=== PATIENT | male | born 1955 ===

== ENCOUNTER 2017-06-18 01:00 | Observation (INO) | payer MEDICAID ==
[2017-06-18 02:09] LABS: BASO % 0.2 % (0.0-2.0); EOS % 0.5 % (0.0-4.0); HEMATOCRIT 34.7 % (35.0-51.0); LYMPH % 9.4 % (20.0-40.0); MEAN CELL VOLUME 94.1 fL (80.0-94.0); MEAN CORPUSCULAR HEMOGLOBIN 31.8 pg (27.0-31.0); MEAN CORPUSCULAR HGB CONC 33.8 g/dL (33.0-37.0); MEAN PLATELET VOLUME 6.8 fL (7.2-11.7); MONO # 1.3 K/uL (0.0-0.8); MONO % 12.9 % (0.0-10.0); PLATELET COUNT 303 K/uL (130-400); RED CELL DISTRIBUTION WIDTH 12.9 % (11.5-14.5); WHITE BLOOD COUNT 10.5 K/uL (4.8-10.8)
[2017-06-18 02:28] LABS: ALB/GLOB RATIO 1.1 (1.0-2.1); ALCOHOL SERUM < 10 mg/dl (0-10); ALKALINE PHOSPHATASE 74 U/L (38-126); ALT/SGPT 47 U/L (21-72); AST/SGOT 28 U/L (17-59); BILIRUBIN,TOTAL 0.7 mg/dL (0.2-1.3); BLOOD UREA NITROGEN 22 mg/dL (9-20); CALCIUM 8.4 mg/dl (8.6-10.4); CARBON DIOXIDE 26 mmol/L (22-30); CHLORIDE 103 mmol/L (98-107); GFR AFRICAN-AMERICAN > 60; GLUCOSE,RANDOM 108 mg/dL (75-110); POTASSIUM 3.5 mmol/L (3.6-5.2); SODIUM 136 mmol/L (132-148); TOTAL PROTEIN 6.9 g/dL (6.3-8.3)
[2017-06-18 02:42] LABS: RBC URINE 2 /hpf (0-3); URINE BILIRUBIN NEGATIVE (NEGATIVE); URINE BLOOD NEGATIVE (NEGATIVE); URINE COLOR Yellow (YELLOW); URINE GLUCOSE (UA) NORMAL (Normal); URINE KETONE 1+ mg/dL (NEGATIVE); URINE LEUKOCYTE ESTERASE NEG Leu/uL (Negative); URINE PROTEIN NEGATIVE (NEGATIVE); URINE UROBILINOGEN NORMAL mg/dL (0.2-1.0); WBC URINE 1 /hpf (0-5)
[2017-06-18 02:58] LABS: TOTAL CELLS COUNTED 100
[2017-06-18 02:59] LABS: NEUTROPHIL 77 % (50-75)
--- NOTE | 2017-06-18 05:58 | C.PDOC ---
History Of Present Illness 61 y/o male brought in by EMS, after patient was found wandering the streets [facility]. Patient notes that "his is keeping his meds away from him and he did not take his meds in a while". Patient is unable to state which meds. Pt states his neighbor was concerned about him and called the ambulance to bring him in but states he is fine. Pt denies any somatic complaints at this time. Time Seen by Provider: 06/18/17 01:29 Chief Complaint (Nursing): Psychiatric Evaluation History Per: Patient History/Exam Limitations: clinical condition Onset/Duration Of Symptoms: Hrs Current Symptoms Are (Timing): Still Present Suicide/Self Injury Attempted (Context): None Modifying Factor(s): None Severity: Mild Additional History Per: Patient Past Medical History Reviewed: Historical Data, Nursing Documentation, Vital Signs Vital Signs: Last Vital Signs Temp 98.8 F 06/18/17 01:15 Pulse 89 06/18/17 01:15 Resp 20 06/18/17 01:15 BP 142/93 H 06/18/17 01:15 Pulse Ox 97 06/18/17 06:15 - Medical History PMH: Depression, HTN Denies: Diabetes, Hepatitis, HIV, Seizures, Sexually Transmitted Disease Family History: States: Unknown Family Hx - Social History Hx Alcohol Use: No Hx Substance Use: No - Immunization History Hx Tetanus Toxoid Vaccination: No Hx Influenza Vaccination: No Hx Pneumococcal Vaccination: No Review Of Systems Except As Marked, All Systems Reviewed And Found Negative. Constitutional: Negative for: Fever Cardiovascular: Negative for: Chest Pain Psych: Positive for: Psychosis. Negative for: Suicidal ideation Physical Exam - Physical Exam Appears: Non-toxic, No Acute Distress Skin: Warm, Dry, Other (superficial healing abrasions to the bilateral hands and below the left knee) Head: Atraumatic, Normacephalic Eye(s): bilateral: Normal Inspection, EOMI Neck: Normal, Supple Chest: Symmetrical, No Deformity, No Tenderness Cardiovascular: Rhythm Regular, No Murmur Respiratory: Normal Breath Sounds, No Rales, No Rhonchi, No Wheezing Gastrointestinal/Abdominal: Soft, No Tenderness Extremity: Normal ROM, No Tenderness, Pedal Edema (minimal, nonpitting), No Calf Tenderness, Other (minimal erythema to b/l LE. dry healing abrasions to b/ l hands, (+) abrasions to inferior aspect of left kn) Neurological/Psych: Other (Pt able to recall current events-) Disoriented To: Place, Time ED Course And Treatment - Laboratory Results Result Diagrams: 06/18/17 02:06 06/18/17 02:06 O2 Sat by Pulse Oximetry: 97 (RA) Pulse Ox Interpretation: Normal - CT Scan/US CT Head w/o Other Rad Studies (CT/US): Interpreted By Me, Read By Radiologist CT/US Interpretation: EXAM: CT Head Without Intravenous Contrast. EXAM DATE/ TIME: 06/18/2017 5:49 AM. CLINICAL HISTORY: 61 years old, male; Signs and symptoms; Psychosis or psychotic disorder; Other: Confusion;. Additional info: ConfusionTECHNIQUE: Axial computed tomography images of the head/brain without intravenous contrast. All CT scans at. this facility use one or more dose reduction techniques, viz.: automated exposure control; ma/kV. adjustment per patient size (including targeted exams where dose is matched to indication; i.e. head);. or iterative reconstruction technique. COMPARISON: No relevant prior studies available. FINDINGS: No intracranial hemorrhage. No intracranial edema. No evidence of infarct. There is trace mucosal thickening in the ethmoid sinuse. IMPRESSION: No acute intracranial findings Progress Note: Plans: Blood labs, UA, CT Head w/o. Pending Crisis evaluation- Pt evaluated by vamp cut out worker Deann who discussed case with Dr Hitchcock who requested AMS workup as pt is not fully oeiented and has no verified prior past psychiatric h/o Disposition - Disposition Disposition Time: 06:43 Condition: STABLE Forms: [facility] (Maori) - Clinical Impression Clinical Impression: Altered mental status, unspecified - Scribe Statement The provider has reviewed the documentation as recorded by the Scribe Glenna haile All medical record entries made by the Scribe were at my direction and personally dictated by me. I have reviewed the chart and agree that the record accurately reflects my personal performance of the history, physical exam, medical decision making, and the department course for this patient. I have also personally directed, reviewed, and agree with the discharge instructions and disposition. Physician Patient Turnover Patient Signed Over To: Annette Valdivia Handoff Comments: Pending labs and admission
--- NOTE | 2017-06-18 06:13 | CT ---
EXAM: CT Head Without Intravenous Contrast EXAM DATE/TIME: 06/18/2017 5:49 AM CLINICAL HISTORY: 61 years old, male; Signs and symptoms; Psychosis or psychotic disorder; Other: Confusion; Additional info: Confusion- TECHNIQUE: Axial computed tomography images of the head/brain without intravenous contrast. All CT scans at this facility use one or more dose reduction techniques, viz.: automated exposure control; ma/kV adjustment per patient size (including targeted exams where dose is matched to indication; i.e. head); or iterative reconstruction technique. COMPARISON: No relevant prior studies available. FINDINGS: No intracranial hemorrhage. No intracranial edema. No evidence of infarct. There is trace mucosal thickening in the ethmoid sinuses. IMPRESSION: No acute intracranial findings.
[2017-06-18] MEDS ORDERED: Dextrose 5%/0.45% NS 500 ML IV ONE (06:50)
[2017-06-18 08:31] LABS: FOLATE > 20.0 ng/mL
--- NOTE | 2017-06-18 08:32 | RAD ---
PROCEDURE: CHEST RADIOGRAPH, 1 VIEW HISTORY: Altered mental status COMPARISON: None available. FINDINGS: LUNGS: Mild venous congestion. Left apical granuloma. PLEURA: No pneumothorax or pleural fluid seen. CARDIOVASCULAR: Tortuous aorta. OSSEOUS STRUCTURES: Degenerative changes in the spine with paravertebral osteophytes. Productive change at the end of 1st bilateral ribs. VISUALIZED UPPER ABDOMEN: Normal. OTHER FINDINGS: None. IMPRESSION: Mild venous congestion. Left apical granuloma.
[2017-06-18 09:11] LABS: RBC URINE 3 /hpf (0-3); URINE BILIRUBIN NEGATIVE (NEGATIVE); URINE BLOOD NEGATIVE (NEGATIVE); URINE CALCIUM OXALATE CRYSTALS RARE /hpf (<OCC); URINE COLOR Yellow (YELLOW); URINE GLUCOSE (UA) NORMAL (Normal); URINE KETONE 1+ mg/dL (NEGATIVE); URINE LEUKOCYTE ESTERASE NEG Leu/uL (Negative); URINE PROTEIN NEGATIVE (NEGATIVE); URINE UROBILINOGEN NORMAL mg/dL (0.2-1.0); WBC URINE 1 /hpf (0-5)
--- NOTE | 2017-06-18 11:42 | CP.PCM.HP ---
History of Present Illness - History of Present Illness History of Present Illness: CC: Confused HPI: Patient is a 61 year old male with a history of early onset dementia. He was brought in from the streets after he was found wondering and confused. Patient says that he thinks someone advised him to come to the hospital because he was confused and need to be looked at. His ex who is in the room with him says that he has just started on PO medications for dementia and also has a history of HTN and hyperlipidemia was evicted from his apartment has refused to stay in a homeless nursing home. Patient reports that his mother from Alzheimer's disease and he is afraid he has it as well. Patient denies changes in vision, hearing, dizziness, chest pain, shortness of breath, nausea, vomiting , diarrhea, joint pain, stiffness, muscle weakness, depression, or anxiety but does report feeling confused. He also say she is talking to people who are not there. PMH: Dementia, HTN, hyperlipidemia PSH: denies FH: amira's mother from Alzheimer's disease SH: Homless, unemployed, denies smoking, etoh use, or drug use. PMD: ? Allergies: NKDA Present on Admission - Present on Admission Any Indicators Present on Admission: No History of DVT/PE: No History of Uncontrolled Diabetes: No Urinary Catheter: No Decubitus Ulcer Present: No History Surgical Site Infection Following: None Review of Systems - Constitutional Constitutional: absent: Chills, Fever - EENT Eyes: absent: Change in Vision Ears: absent: Dizziness - Cardiovascular Cardiovascular: absent: Chest Pain, Dyspnea - Respiratory Respiratory: absent: Cough - Gastrointestinal Gastrointestinal: absent: Abdominal Pain, Nausea, Vomiting - Genitourinary Genitourinary: absent: Dysuria - Musculoskeletal Musculoskeletal: absent: Muscle Weakness - Neurological Neurological: Memory Loss. absent: Weakness - Psychiatric Psychiatric: Confusion. absent: Anxiety - Endocrine Endocrine: absent: Palpitations Past Patient History - Past Social History Smoking Status: Never Smoked - CARDIAC Hx Hypertension: Yes - PULMONARY Hx Tuberculosis: No - NEUROLOGICAL Hx Seizures: No - HEMATOLOGICAL/ONCOLOGICAL Hx Human Immunodeficiency Virus (HIV): No - GENITOURINARY/GYNECOLOGICAL Hx Sexually Transmitted Disorders: No - PSYCHIATRIC Hx Depression: Yes Hx Substance Use: No - SURGICAL HISTORY Hx Surgeries: Yes Other/Comment: MOLE - REMOVAL FROM FACE - ANESTHESIA Hx Anesthesia: Yes Hx Anesthesia Reactions: No Meds Allergies/Adverse Reactions: Allergies Allergy/AdvReac Type Severity Reaction Status Date / Time No Known Allergies Allergy Verified 06/18/17 01:26 Physical Exam - Constitutional Appears: Non-toxic, No Acute Distress, Confused - Head Exam Head Exam: NORMAL INSPECTION - Eye Exam Eye Exam: Normal appearance, PERRL. absent: Scleral icterus Pupil Exam: NORMAL ACCOMODATION - ENT Exam ENT Exam: Normal Exam - Respiratory Exam Respiratory Exam: Clear to Auscultation Bilateral. absent: Rales, Rhonchi, Wheezes - Cardiovascular Exam Cardiovascular Exam: REGULAR RHYTHM, RRR, +S1, +S2. absent: Gallop, Rubs - GI/Abdominal Exam GI & Abdominal Exam: Normal Bowel Sounds, Soft. absent: Tenderness - Extremities Exam Extremities exam: Positive for: normal inspection. Negative for: pedal edema - Back Exam Back exam: NORMAL INSPECTION - Psychiatric Exam Psychiatric exam: Normal Affect, Normal Mood - Skin Skin Exam: Normal Color, Warm Results - Vital Signs Recent Vital Signs: Last Vital Signs Temp 98.5 F 06/18/17 10:24 Pulse 85 06/18/17 10:24 Resp 18 06/18/17 10:24 BP 130/74 06/18/17 10:24 Pulse Ox 98 06/18/17 10:24 - Labs Result Diagrams: 06/18/17 02:06 06/18/17 02:06 Labs: Laboratory Results - last 24 hr 06/18/17 06/18/17 06/18/17 01:36 02:06 02:06 WBC 10.5 RBC 3.69 L Hgb 11.7 L Hct 34.7 L MCV 94.1 H MCH 31.8 H MCHC 33.8 RDW 12.9 Plt Count 303 MPV 6.8 L Neut % (Auto) 77.0 H Lymph % (Auto) 9.4 L [place] % (Auto) 12.9 H Eos % (Auto) 0.5 Baso % (Auto) 0.2 Neut # 8.1 H Lymph # 1.0 Calvert # 1.3 H Eos # 0.0 Baso # 0.0 Neutrophils % (Manual) 77 H Band Neutrophils % 1 Lymphocytes % (Manual) 10 L Monocytes % (Manual) 12 H Platelet Estimate Normal Poikilocytosis (manual Slight Anisocytosis (manual) Slight Sodium 136 Potassium 3.5 L Chloride 103 Carbon Dioxide 26 Anion Gap 11 BUN 22 H Creatinine 0.7 L Est GFR ( Amer) > 60 Est GFR (Non-Af Amer) > 60 POC Glucose (mg/dL) Random Glucose 108 Calcium 8.4 L Total Bilirubin 0.7 AST 28 ALT 47 Alkaline Phosphatase 74 Ammonia Total Protein 6.9 Albumin 3.6 Globulin 3.4 Albumin/Globulin Ratio 1.1 Vitamin B12 Folate Urine Color Yellow Urine Clarity Clear Urine pH 5.0 Ur Specific [place] 1.027 Urine Protein Negative Urine Glucose (UA) Normal Urine Ketones 1+ H Urine Blood Negative Urine Nitrate Negative Urine Bilirubin Negative Urine Urobilinogen Normal Ur Leukocyte Esterase Neg Urine WBC (Auto) 1 Urine RBC (Auto) 2 Ur Squamous Epith Cells Calcium Oxalate Crystal Urine Opiates Screen Urine Methadone Screen Ur Barbiturates Screen Ur Phencyclidine Scrn Ur Amphetamines Screen U Benzodiazepines Scrn U Oth Cocaine Metabols U Cannabinoids Screen Alcohol, Quantitative < 10 06/18/17 06/18/17 06/18/17 02:20 06:43 06:43 WBC RBC Hgb Hct MCV MCH MCHC RDW Plt Count MPV Neut % (Auto) Lymph % (Auto) Calvert % (Auto) Eos % (Auto) Baso % (Auto) Neut # Lymph # Cal[place] # Eos # Baso # Neutrophils % (Manual) Band Neutrophils % Lymphocytes % (Manual) Monocytes % (Manual) Platelet Estimate Poikilocytosis (manual Anisocytosis (manual) Sodium Potassium Chloride Carbon Dioxide Anion Gap BUN Creatinine Est GFR ( Amer) Est GFR (Non-Af Amer) POC Glucose (mg/dL) Random Glucose Calcium Total Bilirubin AST ALT Alkaline Phosphatase Ammonia < 9 L Total Protein Albumin Globulin Albumin/Globulin Ratio Vitamin B12 291 Folate > 20.0 Urine Color Urine Clarity Urine pH Ur Specific [place] Urine Protein Urine Glucose (UA) Urine Ketones Urine Blood Urine Nitrate Urine Bilirubin Urine Urobilinogen Ur Leukocyte Esterase Urine WBC (Auto) Urine RBC (Auto) Ur Squamous Epith Cells Calcium Oxalate Crystal Urine Opiates Screen Negative Urine Methadone Screen Negative Ur Barbiturates Screen Negative Ur Phencyclidine Scrn Negative Ur Amphetamines Screen Negative U Benzodiazepines Scrn Negative U Oth Cocaine Metabols Negative U Cannabinoids Screen Negative Alcohol, Quantitative 06/18/17 06/18/17 09:03 09:53 WBC RBC Hgb Hct MCV MCH MCHC RDW Plt Count MPV Neut % (Auto) Lymph % (Auto) Calvert % (Auto) Eos % (Auto) Baso % (Auto) Neut # Lymph # Cal[place] # Eos # Baso # Neutrophils % (Manual) Band Neutrophils % Lymphocytes % (Manual) Monocytes % (Manual) Platelet Estimate Poikilocytosis (manual Anisocytosis (manual) Sodium Potassium Chloride Carbon Dioxide Anion Gap BUN Creatinine Est GFR ( Amer) Est GFR (Non-Af Amer) POC Glucose (mg/dL) 114 H Random Glucose Calcium Total Bilirubin AST ALT Alkaline Phosphatase Ammonia Total Protein Albumin Globulin Albumin/Globulin Ratio Vitamin B12 Folate Urine Color Yellow Urine Clarity Clear Urine pH 5.0 Ur Specific [place] 1.023 Urine Protein Negative Urine Glucose (UA) Normal Urine Ketones 1+ H Urine Blood Negative Urine Nitrate Negative Urine Bilirubin Negative Urine Urobilinogen Normal Ur Leukocyte Esterase Neg Urine WBC (Auto) 1 Urine RBC (Auto) 3 Ur Squamous Epith Cells 1 Calcium Oxalate Crystal Rare Urine Opiates Screen Urine Methadone Screen Ur Barbiturates Screen Ur Phencyclidine Scrn Ur Amphetamines Screen U Benzodiazepines Scrn U Oth Cocaine Metabols U Cannabinoids Screen Alcohol, Quantitative Assessment & Plan (1) Altered mental status, unspecified Assessment and Plan: The CBC shows a left shift without a high white count. CT scan of the head is negative, x:ray shows a apical granuloma, however CT scan of the chest is negative and unremarkable. UDS is negative, urine only has ketones in it. labs, ekg, chest x:ray, CT scan of the head reviewed. Admitted patient to tele/obs. Will get labs cbc, cmp, mag, phos, HIV, RPR, and TB gold quatifouron test. Have also ordered MRI with and without contrast Patient was also given vitamin B12 1000 mcg IM and thiamine as well. Psych consult Dr. Valente because of the visual and auditory hallucinations. Status: Acute (2) Anemia Assessment and Plan: Hbg is 11.7, will follow up morning cbc. Status: Acute (3) Hypokalemia Assessment and Plan: replace as needed. Status: Acute (4) Dementia Assessment and Plan: continue his home medication Aricpet 10mg Namenda 10mg bid Status: Chronic (5) HTN (hypertension) Assessment and Plan: continue home Cozaar 25mg Status: Chronic (6) Prophylactic measure Assessment and Plan: Pepcid 20mg Heparin 5000 units sc q8h SCDs Status: Acute
--- NOTE | 2017-06-18 12:36 | CT ---
PROCEDURE: CT Chest without contrast HISTORY: granuloma seen on chest x:ray COMPARISON: Comparison is made to previous same-day chest x-ray TECHNIQUE: Contiguous axial images were obtained through the chest without intravenous contrast enhancement. Sagittal and coronal reconstructions were performed. Radiation dose (DLP): 505.94 mGy-cm. This CT exam was performed using one or more of the following dose reduction techniques: Automated exposure control, adjustment of the mA and/or kV according to patient size, and/or use of iterative reconstruction technique. FINDINGS: LUNGS: No evidence of pneumonia or mass lesion in the lungs. No evidence of suspicious nodule in the lungs. MEDIASTINUM: Unremarkable thoracic aorta. No aneurysm. Normal sized heart. Main pulmonary artery unremarkable. No vascular congestion. No lymphadenopathy. PLEURA: No pleural fluid. No pneumothorax. BONES: No fracture. No destructive lesion. Hemangioma noted at T5 vertebral body. UPPER ABDOMEN: Grossly unremarkable. OTHER FINDINGS: None. IMPRESSION: No evidence of granuloma or suspicious nodule in the lungs. No evidence of acute pathology in the chest.
[2017-06-18] MEDS ORDERED: Potassium Chloride 20 mEq ER Tab PO ONE (14:30)
--- NOTE | 2017-06-18 18:01 | CARD ---
APPROVED REPORT EKG Measurement Heart [id number] <Conclusion> Normal sinus rhythm Normal ECG
[2017-06-18] MEDS ORDERED: Gadodiamide 287 MG/ML VIAL (15ML) IV ONE (18:24)
--- NOTE | 2017-06-18 18:52 | MRI ---
PROCEDURE: MRI brain dated 06/18/2017 HISTORY: AMS. COMPARISON: Comparison made with prior CT scan brain 06/18/2017. TECHNIQUE: Multiplanar, multisequence MR images of the brain were obtained with and without intravenous contrast enhancement. Approximately 15 cc of Omniscan injected for this procedure. . Note that examination is limited by motion artifact FINDINGS: HEMORRHAGE: No acute parenchymal, subarachnoid or extra-axial hemorrhage. DWI: No evidence of acute infarcts seen on diffusion imaging. BRAIN PARENCHYMA: Mild diffuse/confluent chronic white matter ischemic changes the seen extending peripherally into the deep white matter both cerebral hemispheres. Changes are most conspicuous in the parieto-occipital regions. Additionally, there are a few small focal areas of nonenhancing increased T2 signal seen scattered about the deep and subcortical white matter both cerebral hemispheres. In changes collectively may represent chronic sequela of small vessel disease. . Moderate generalized volume loss. ENHANCEMENT: No enhancing parenchymal nor extra-axial masses or collections seen. No evidence of unusual meningeal enhancement. VENTRICLES: No evidence of obstructive hydrocephalus CRANIUM: There are no acute calvarial abnormalities. ORBITS: Orbits and contents grossly unremarkable. PARANASAL SINUSES/MASTOIDS: Mild mucosal thickening noted within the ethmoid air complex extending superiorly into the frontal sinuses. VASCULAR SYSTEM: Visualized major vascular flow voids at skull base appear patent so far as can be seen through motion artifact. OTHER FINDINGS: None . IMPRESSION: Limited motion degraded study. No evidence of acute hemorrhage or infarct. Minor chronic white matter ischemic changes are felt be present. Moderate generalized volume loss.
[2017-06-18] MEDS: Rosuvastatin Calcium 2.5 mg Tab PO SCH (22:22)
[2017-06-19 01:02] VITALS: RESP 20
[2017-06-19 07:32] LABS: BASO % 0.3 % (0.0-2.0); EOS # 0.1 K/uL (0.0-0.7); EOS % 0.9 % (0.0-4.0); LYMPH % 12.8 % (20.0-40.0); MEAN CELL VOLUME 94.6 fL (80.0-94.0); MEAN CORPUSCULAR HEMOGLOBIN 32.4 pg (27.0-31.0); MEAN CORPUSCULAR HGB CONC 34.2 g/dL (33.0-37.0); MEAN PLATELET VOLUME 7.1 fL (7.2-11.7); MONO # 0.7 K/uL (0.0-0.8); MONO % 9.6 % (0.0-10.0); RED CELL DISTRIBUTION WIDTH 12.7 % (11.5-14.5); WHITE BLOOD COUNT 7.4 K/uL (4.8-10.8)
[2017-06-19 08:19] LABS: ALB/GLOB RATIO 1.4 (1.0-2.1); ALKALINE PHOSPHATASE 64 U/L (38-126); ALT/SGPT 39 U/L (21-72); AST/SGOT 20 U/L (17-59); BILIRUBIN,TOTAL 0.6 mg/dL (0.2-1.3); BLOOD UREA NITROGEN 11 mg/dL (9-20); CARBON DIOXIDE 27 mmol/L (22-30); CHLORIDE 102 mmol/L (98-107); GFR AFRICAN-AMERICAN > 60; GLUCOSE,RANDOM 95 mg/dL (75-110); MAGNESIUM 1.9 mg/dL (1.6-2.3); PHOSPHOROUS 3.4 mg/dL (2.5-4.5); POTASSIUM 3.8 mmol/L (3.6-5.2); SODIUM 136 mmol/L (132-148); TOTAL PROTEIN 5.3 g/dL (6.3-8.3)
--- NOTE | 2017-06-19 09:15 | CP.PCM.PN ---
Subjective - Date & Time of Evaluation Date of Evaluation: 06/19/17 Time of Evaluation: 07:00 - Subjective Subjective: Patient was seen and examined at bedside in the AM. Patient states he has become disoriented in the past and states his mom had Alzheimer's disease. Patient states about 2-3 months ago he began to hallucinate. Patient denies chest pain, palpitations, shortness of breath, nausea, vomiting, dysuria, diarrhea or constipation. Objective - Vital Signs/Intake and Output Vital Signs (last 24 hours): Temp Pulse Resp BP Pulse Ox 99 F 71 20 128/72 96 06/19/17 08:13 06/19/17 08:13 06/19/17 08:13 06/19/17 08:13 06/19/17 08:13 - Medications Medications: Current Medications Aspirin (Ecotrin) 81 mg PO DAILY [facility] Last Admin: 06/18/17 15:02 Dose: 81 mg Donepezil HCl (Aricept) 10 mg PO HS [facility] Last Admin: 06/18/17 22:22 Dose: 10 mg Famotidine (Pepcid) 20 mg PO BID [facility] Last Admin: 06/18/17 18:00 Dose: 20 mg Folic Acid (Folic Acid) 1 mg PO DAILY [facility] Last Admin: 06/18/17 15:02 Dose: 1 mg Heparin Sodium (Porcine) (Heparin) 5,000 units SC Q8 [facility] Last Admin: 06/19/17 05:21 Dose: 5,000 units Losartan Potassium (Cozaar) 25 mg PO DAILY [facility] Last Admin: 06/18/17 15:02 Dose: 25 mg Memantine (Namenda) 10 mg PO BID [facility] Last Admin: 06/18/17 18:00 Dose: 10 mg Pneumococcal Polyvalent Vaccine (Pneumovax 23 Vaccine) 0.5 ml IM .ONCE ONE Stop: 06/19/17 10:01 Rosuvastatin Calcium (Crestor) 2.5 mg PO HS [facility] Last Admin: 06/18/17 22:22 Dose: 2.5 mg Thiamine HCl (Vitamin B1 Tab) 100 mg PO DAILY [facility] Last Admin: 06/18/17 15:01 Dose: 100 mg - Labs Labs: 06/19/17 07:21 06/19/17 07:21 - Constitutional Appears: No Acute Distress - Head Exam Head Exam: ATRAUMATIC, NORMAL INSPECTION - Eye Exam Eye Exam: EOMI, Normal appearance - Respiratory Exam Respiratory Exam: Clear to Ausculation Bilateral, NORMAL BREATHING PATTERN - Cardiovascular Exam Cardiovascular Exam: REGULAR RHYTHM, RRR, +S1, +S2 - GI/Abdominal Exam GI & Abdominal Exam: Soft, Normal Bowel Sounds. absent: Tenderness - Extremities Exam Extremities Exam: Normal Inspection. absent: Pedal Edema, Tenderness - Neurological Exam Neurological Exam: Alert, Awake, Oriented x3 - Psychiatric Exam Psychiatric exam: Normal Affect, Normal Mood - Skin Skin Exam: Normal Color, Warm Assessment and Plan - Assessment and Plan (Free Text) Assessment: 1.) Altered mental status secondary to Alzheimer's Disease Psych consult Dr. Valente --> help appreciated - CT scan of the head is negative - X-ray shows a apical granuloma - CT scan of the chest is negative and unremarkable - UDS is negative - RPR and HIV negative - UA: urine only + for ketones - Brain MRI: Limited motion degraded study. No evidence of acute hemorrhage or infarct. Minor chronic white matter ischemic changes are felt be present. Moderate generalized volume loss. Medications: * Aricpet 10mg * Namenda 10mg bid * Folic acid 1mg PO daily * Crestor 2.5mg PO HS * Aspirin 81mg PO 2.) Anemia - H/H: 11.3/33.0 - Monitor 3.) Hypokalemia - resolved 4.) HTN - continue home Cozaar 25mg 5.) Prophylaxis - Pepcid 20mg - Heparin 5000 units sc q8h - SCDs Disposition: pending approval to rehab Case discussed with Dr. Jayde Norris PGY-1
[2017-06-19] MEDS ORDERED: Pneumococcal 23-Valent Vaccine IM ONE (10:00)
[2017-06-19] MEDS ORDERED: Influenza Vaccine 60 mcg/0.5 mL SYR (4YR UP) IM ONE (10:00)
--- NOTE | 2017-06-19 12:48 | PCM.PSYCH ---
Initial Psychiatric Evaluation - Initial Psychiatric Evaluation Type of Admission: Voluntary Legal Status: Capacity Chief Complaint (in patient's own words): I feel good History of Present Illness and Precipitating Events: The patient was seen, chart reviewed, and case discussed with staff. This is a 61 year old male without a stable home, alternating stays with friends and family. He was brought to the hospital because of confusion and believes he needs treatment for Alzheimers disease. Patient denies any past inpatient psychiatric hospitalization or outpatient psychiatric care. He denies use of heroin, cocaine, and marijuana. He reports social alcohol usage: beer and wine. Patient reports that he is easily distracted and an episode of hallucination where he thought he was talking to two people when only one person was present. He also reports that his memory comes and goes for the past 6-7 months. He reports anxiety that started after he was told about the risk for Alzheimers disease. He denies any auditory or visual hallucinations or any psychotic symptoms. He denies issues with ADLs and IADLs. He denies any suicidal ideation or homicidal ideation. He denies feelings of anxiety, feelings of hopelessness and helplessness. 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 Family psychiatric history: mother () had Alzheimers Past medical history: dementia, HTN, HLD Current Medications: Active Medications Generic Name Dose Route Start Last Admin Trade Name Katy PRN Reason Stop Dose Admin Aspirin 81 mg 06/18/17 15:00 06/19/17 10:41 Ecotrin PO 81 mg DAILY ANTONY Administration Donepezil HCl 10 mg 06/18/17 22:00 06/18/17 22:22 Aricept PO 10 mg HS ANTONY Administration Famotidine 20 mg 06/18/17 11:45 06/19/17 10:41 Pepcid PO 20 mg BID ANTONY Administration Folic Acid 1 mg 06/18/17 14:45 06/19/17 10:41 Folic Acid PO 1 mg DAILY ANTONY Administration Heparin Sodium (Porcine) 5,000 units 06/18/17 14:00 06/19/17 05:21 Heparin SC 5,000 units Q8 ANTONY Administration Losartan Potassium 25 mg 06/18/17 15:00 06/19/17 10:41 Cozaar PO 25 mg DAILY ANTONY Administration Memantine 10 mg 06/18/17 18:00 06/19/17 10:41 Namenda PO 10 mg BID ANTONY Administration Rosuvastatin Calcium 2.5 mg 06/18/17 22:00 06/18/17 22:22 Crestor PO 2.5 mg HS ANTONY Administration Thiamine HCl 100 mg 06/18/17 13:00 06/19/17 10:41 Vitamin B1 Tab PO 100 mg DAILY ANTONY Administration Past Psychiatric History - Past Psychiatric History Previous Treatment History: None Pertinent Medical Hx (Current Medical&Sleep Prob, Allergies): Allergies Allergy/AdvReac Type Severity Reaction Status Date / Time No Known Allergies Allergy Verified 06/18/17 01:26 Unobtainable 06/18/17 Review of Systems - Review of Systems All systems: reviewed and no additional remarkable complaints except - Psychiatric Psychiatric: Anxiety, Irritability Mental Status Examination - Personal Presentation Personal Presentation: Looks stated age - Affect Affect: Constricted - Motor Activity Motor Activity: Calm - Reliability in Providing Information Reliability in Providing Information: Fair, Poor, due to cognitve impairment - Speech Speech: Organized - Mood Mood: Anxious - Formal Thought Process Formal Thought Process: No Impairment - Obsessions/Compulsions Obsessions: No Compulsions: No - Cognitive Functions Orientation: Person, Place, Situation, Time Sensorium: Alert Attention/Concentration: Attentive Abstract Thinking: [place] Estimate of Intelligence: Below average Judgement: Imparied, as evidence by: Lack of insight into illness, Intact, as evidence by: Insight regarding need for hospitalization - Risk Risk: Diminished functioning - Limitations Limitations: Living alone DSM 5 DX - DSM 5 DSM 5 Diagnosis: Alzheimer's dementia with behavioral disturbances Rule/out delirium - Recommended/Plan of Treatment Treatment Recommendations and Plan of Treatment: Patient psychiatrically stable and clear for discharge - Smoking Cessation Smoking Cessation Initiated: No
[2017-06-19] MEDS: Rosuvastatin Calcium 2.5 mg Tab PO SCH (21:56)
--- NOTE | 2017-06-20 06:53 | CP.PCM.PN ---
Objective - Vital Signs/Intake and Output Vital Signs (last 24 hours): Temp Pulse Resp BP Pulse Ox 98 F 70 20 133/76 96 06/19/17 23:20 06/19/17 23:20 06/19/17 23:20 06/19/17 23:20 06/19/17 23:20 Intake and Output: 06/19/17 06/20/17 18:59 06:59 Intake Total 450 1000 Balance 450 1000 - Medications Medications: Current Medications Aspirin (Ecotrin) 81 mg PO DAILY [facility] Last Admin: 06/19/17 10:41 Dose: 81 mg Donepezil HCl (Aricept) 10 mg PO HS [facility] Last Admin: 06/19/17 21:56 Dose: 10 mg Famotidine (Pepcid) 20 mg PO BID [facility] Last Admin: 06/19/17 17:21 Dose: 20 mg Folic Acid (Folic Acid) 1 mg PO DAILY [facility] Last Admin: 06/19/17 10:41 Dose: 1 mg Heparin Sodium (Porcine) (Heparin) 5,000 units SC Q8 [facility] Last Admin: 06/19/17 21:56 Dose: 5,000 units Losartan Potassium (Cozaar) 25 mg PO DAILY [facility] Last Admin: 06/19/17 10:41 Dose: 25 mg Memantine (Namenda) 10 mg PO BID [facility] Last Admin: 06/19/17 17:21 Dose: 10 mg Rosuvastatin Calcium (Crestor) 2.5 mg PO HS [facility] Last Admin: 06/19/17 21:56 Dose: 2.5 mg Thiamine HCl (Vitamin B1 Tab) 100 mg PO DAILY [facility] Last Admin: 06/19/17 10:41 Dose: 100 mg - Labs Labs: 06/19/17 07:21 06/19/17 07:21
[2017-06-20 08:29] VITALS: BP 141/80; PULSE 74; TEMP 98; O2SAT 96
[2017-06-20 08:32] LABS: BASO % 0.2 % (0.0-2.0); EOS # 0.1 K/uL (0.0-0.7); EOS % 0.8 % (0.0-4.0); HEMATOCRIT 36.8 % (35.0-51.0); LYMPH # 1.2 K/uL (1.0-4.3); LYMPH % 9.9 % (20.0-40.0); MEAN CELL VOLUME 94.6 fL (80.0-94.0); MEAN CORPUSCULAR HEMOGLOBIN 31.8 pg (27.0-31.0); MEAN CORPUSCULAR HGB CONC 33.7 g/dL (33.0-37.0); MEAN PLATELET VOLUME 7.2 fL (7.2-11.7); MONO # 1.3 K/uL (0.0-0.8); MONO % 10.9 % (0.0-10.0); PLATELET COUNT 346 K/uL (130-400); RED CELL DISTRIBUTION WIDTH 12.7 % (11.5-14.5); WHITE BLOOD COUNT 11.7 K/uL (4.8-10.8)
[2017-06-20 08:55] LABS: ALKALINE PHOSPHATASE 71 U/L (38-126); ALT/SGPT 34 U/L (21-72); AST/SGOT 23 U/L (17-59); BILIRUBIN,TOTAL 0.7 mg/dL (0.2-1.3); BLOOD UREA NITROGEN 10 mg/dL (9-20); CALCIUM 8.2 mg/dl (8.6-10.4); CARBON DIOXIDE 26 mmol/L (22-30); CHLORIDE 101 mmol/L (98-107); CHOLESTEROL 141 mg/dL (0-199); GFR AFRICAN-AMERICAN > 60; GLUCOSE,RANDOM 87 mg/dL (75-110); PHOSPHOROUS 3.4 mg/dL (2.5-4.5); POTASSIUM 3.9 mmol/L (3.6-5.2); SODIUM 134 mmol/L (132-148); TOTAL PROTEIN 5.9 g/dL (6.3-8.3)
[2017-06-20 09:08] LABS: ALB/GLOB RATIO 1.4 (1.0-2.1)
[2017-06-20 10:01] LABS: NEUTROPHIL 82 % (50-75); TOTAL CELLS COUNTED 100
--- NOTE | 2017-06-20 11:19 | CP.PCM.DIS ---
<Jennifer Norris - Last Filed: 06/20/17 13:14> Provider - Provider Date of Admission: 06/18/17 15:16 Attending physician: Tamera Sawyer DO Time Spent in preparation of Discharge (in minutes): 40 Hospital Course - Lab Results Lab Results: Most Recent Lab Values WBC 11.7 K/uL (4.8-10.8) H D 06/20/17 08:28 RBC 3.89 Mil/uL (4.40-5.90) L 06/20/17 08:28 Hgb 12.4 g/dL (12.0-18.0) 06/20/17 08:28 Hct 36.8 % (35.0-51.0) 06/20/17 08:28 MCV 94.6 fL (80.0-94.0) H 06/20/17 08:28 MCH 31.8 pg (27.0-31.0) H 06/20/17 08:28 MCHC 33.7 g/dL (33.0-37.0) 06/20/17 08:28 RDW 12.7 % (11.5-14.5) 06/20/17 08:28 Plt Count 346 K/uL (130-400) 06/20/17 08:28 MPV 7.2 fL (7.2-11.7) 06/20/17 08:28 Neut % (Auto) 78.2 % (50.0-75.0) H 06/20/17 08:28 Lymph % (Auto) 9.9 % (20.0-40.0) L 06/20/17 08:28 Butts % (Auto) 10.9 % (0.0-10.0) H 06/20/17 08:28 Eos % (Auto) 0.8 % (0.0-4.0) 06/20/17 08:28 Baso % (Auto) 0.2 % (0.0-2.0) 06/20/17 08:28 Neut # 9.1 K/uL (1.8-7.0) H 06/20/17 08:28 Lymph # 1.2 K/uL (1.0-4.3) 06/20/17 08:28 Butts # 1.3 K/uL (0.0-0.8) H 06/20/17 08:28 Eos # 0.1 K/uL (0.0-0.7) 06/20/17 08:28 Baso # 0.0 K/uL (0.0-0.2) 06/20/17 08:28 Neutrophils % (Manual) 82 % (50-75) H 06/20/17 08:28 Band Neutrophils % 1 % (0-2) 06/18/17 02:06 Lymphocytes % (Manual) 9 % (20-40) L 06/20/17 08:28 Monocytes % (Manual) 9 % (0-10) 06/20/17 08:28 Platelet Estimate Normal (NORMAL) 06/20/17 08:28 RBC Morphology Normal 06/20/17 08:28 Poikilocytosis (manual Slight 06/18/17 02:06 Anisocytosis (manual) Slight 06/18/17 02:06 Sodium 134 mmol/L (132-148) 06/20/17 08:28 Potassium 3.9 mmol/L (3.6-5.2) 06/20/17 08:28 Chloride 101 mmol/L (98-107) 06/20/17 08:28 Carbon Dioxide 26 mmol/L (22-30) 06/20/17 08:28 Anion Gap 12 (10-20) 06/20/17 08:28 BUN 10 mg/dL (9-20) 06/20/17 08:28 Creatinine 0.7 mg/dL (0.8-1.5) L 06/20/17 08:28 Est GFR ( Amer) > 60 06/20/17 08:28 Est GFR (Non-Af Amer) > 60 06/20/17 08:28 POC Glucose (mg/dL) 114 mg/dL (65-110) H 06/18/17 09:53 Random Glucose 87 mg/dL (75-110) 06/20/17 08:28 Calcium 8.2 mg/dl (8.6-10.4) L 06/20/17 08:28 Phosphorus 3.4 mg/dL (2.5-4.5) 06/20/17 08:28 Magnesium 2.0 mg/dL (1.6-2.3) 06/20/17 08:28 Total Bilirubin 0.7 mg/dL (0.2-1.3) 06/20/17 08:28 AST 23 U/L (17-59) 06/20/17 08:28 ALT 34 U/L (21-72) 06/20/17 08:28 Alkaline Phosphatase 71 U/L (38-126) 06/20/17 08:28 Ammonia < 9 umol/L (9-33) L 06/18/17 06:43 Total Protein 5.9 g/dL (6.3-8.3) L 06/20/17 08:28 Albumin 3.5 g/dL (3.5-5.0) 06/20/17 08:28 Globulin 2.4 gm/dL (2.2-3.9) 06/20/17 08:28 Albumin/Globulin Ratio 1.4 (1.0-2.1) 06/20/17 08:28 Triglycerides 75 mg/dL (0-149) 06/20/17 08:28 Cholesterol 141 mg/dL (0-199) 06/20/17 08:28 LDL Cholesterol Direct 69 mg/dL (0-129) 06/20/17 08:28 HDL Cholesterol 59 mg/dL (30-70) 06/20/17 08:28 Vitamin B12 291 pg/mL (239-931) 06/18/17 06:43 Folate > 20.0 ng/mL 06/18/17 06:43 Free T4 1.10 ng/dL (0.78-2.19) 06/18/17 12:21 TSH 3rd Generation 0.50 mIU/L (0.46-4.68) 06/18/17 06:43 Urine Color Yellow (YELLOW) 06/18/17 09:03 Urine Clarity Clear (Clear) 06/18/17 09:03 Urine pH 5.0 (5.0-8.0) 06/18/17 09:03 Ur Specific [place] 1.023 (1.003-1.030) 06/18/17 09:03 Urine Protein Negative mg/dL (NEGATIVE) 06/18/17 09:03 Urine Glucose (UA) Normal mg/dL (Normal) 06/18/17 09:03 Urine Ketones 1+ mg/dL (NEGATIVE) H 06/18/17 09:03 Urine Blood Negative (NEGATIVE) 06/18/17 09:03 Urine Nitrate Negative (NEGATIVE) 06/18/17 09:03 Urine Bilirubin Negative (NEGATIVE) 06/18/17 09:03 Urine Urobilinogen Normal mg/dL (0.2-1.0) 06/18/17 09:03 Ur Leukocyte Esterase Neg Essence/uL (Negative) 06/18/17 09:03 Urine WBC (Auto) 1 /hpf (0-5) 06/18/17 09:03 Urine RBC (Auto) 3 /hpf (0-3) 06/18/17 09:03 Ur Squamous Epith Cells 1 /hpf (0-5) 06/18/17 09:03 Calcium Oxalate Crystal Rare /hpf (<OCC) 06/18/17 09:03 Urine Opiates Screen Negative (NEGATIVE) 06/18/17 02:20 Urine Methadone Screen Negative (NEGATIVE) 06/18/17 02:20 Ur Barbiturates Screen Negative (NEGATIVE) 06/18/17 02:20 Ur Phencyclidine Scrn Negative (NEGATIVE) 06/18/17 02:20 Ur Amphetamines Screen Negative (NEGATIVE) 06/18/17 02:20 U Benzodiazepines Scrn Negative (NEGATIVE) 06/18/17 02:20 U Oth Cocaine Metabols Negative (NEGATIVE) 06/18/17 02:20 U Cannabinoids Screen Negative (NEGATIVE) 06/18/17 02:20 Alcohol, Quantitative < 10 mg/dl (0-10) 06/18/17 02:06 RPR Nonreactive (NONREACTIVE) 06/18/17 12:21 HIV 1&2 Antibody Screen Negative (NEGATIVE) 06/18/17 12:21 - Hospital Course Hospital Course: CC: Confused HPI: Patient is a 61 year old male with a history of early onset dementia. He was brought in from the streets after he was found wondering and confused. Patient says that he thinks someone advised him to come to the hospital because he was confused and need to be looked at. His ex who is in the room with him says that he has just started on PO medications for dementia and also has a history of HTN and hyperlipidemia was evicted from his apartment has refused to stay in a homeless custodial. Patient reports that his mother from Alzheimer's disease and he is afraid he has it as well. Patient denies changes in vision, hearing, dizziness, chest pain, shortness of breath, nausea, vomiting , diarrhea, joint pain, stiffness, muscle weakness, depression, or anxiety but does report feeling confused. He also say she is talking to people who are not there. PMH: Dementia, HTN, hyperlipidemia PSH: denies FH: amira's mother from Alzheimer's disease SH: Homless, unemployed, denies smoking, etoh use, or drug use. Allergies: NKDA Hospital Course: Upon admission, Head CT revealed no acute intracranial findings; Chest X-Ray revealed mild venous congestion and left apical granuloma; Chest CT revealed no evidence of granuloma or suspicious nodule in the lungs and no evidence of acute pathology in the chest; Brain MRI revealed no evidence of acute hemorrhage or infarct but minor chronic white matter ischemic changes were present in addition to moderate generalized volume loss. During his stay at the hospital, patient had no major complaints and did not have any episodes of hallucinations. MOCA exam was administered during his stay and scored a 15/30. Psychiatry was consulted (06/19/17) and stated that the patient is psychiatrically stable and clear for discharge. Plan for the patient is to be admitted for Assisted Living pending approval. This is a brief summary of the patients hospital course. Please review EMR for full record. Patient stable for discharge per Dr. Sawyer pending assisted living approval. Patient to continue medications: Aricept 10mg once at night Namenda 10mg PO twice daily Losartan 25mg PO daily Patient to follow up with the [facility] in one week to have referral for a Neurologist: Please call to make an appointment #[phone] Discharge Exam - Head Exam Head Exam: ATRAUMATIC, NORMAL INSPECTION - Eye Exam Eye Exam: EOMI, Normal appearance - Respiratory Exam Respiratory Exam: Clear to PA & Lateral, NORMAL BREATHING PATTERN - Cardiovascular Exam Cardiovascular Exam: REGULAR RHYTHM, RRR, +S1, +S2 - GI/Abdominal Exam GI & Abdominal Exam: Normal Bowel Sounds, Soft. absent: Tenderness - Extremities Exam Extremities exam: normal inspection - Neurological Exam Neurological exam: Alert - Psychiatric Exam Psychiatric exam: Normal Affect, Normal Mood - Skin Skin Exam: Normal Color, Warm Discharge Plan - Discharge Medications Prescriptions: Donepezil [Aricept] 10 mg PO HS #30 tab Losartan [Cozaar] 25 mg PO DAILY #30 tab Memantine [Namenda] 10 mg PO BID #30 tab - Follow Up Plan Condition: STABLE Disposition: HOME/ ROUTINE Instructions: Losartan (By mouth), Donepezil (By mouth), Memantine (By mouth), Hypokalemia (DC), Chronic Hypertension (DC), Leukocytosis (DC), Anemia (DC) Referrals: Tamera Sawyer DO [Staff Provider] - <Tamera Sawyer V - Last Filed: 06/20/17 17:45> Provider - Provider Date of Admission: 06/18/17 15:16 Attending physician: Tamera Sawyer DO Hospital Course - Lab Results Lab Results: Most Recent Lab Values WBC 11.7 K/uL (4.8-10.8) H D 06/20/17 08:28 RBC 3.89 Mil/uL (4.40-5.90) L 06/20/17 08:28 Hgb 12.4 g/dL (12.0-18.0) 06/20/17 08:28 Hct 36.8 % (35.0-51.0) 06/20/17 08:28 MCV 94.6 fL (80.0-94.0) H 06/20/17 08:28 MCH 31.8 pg (27.0-31.0) H 06/20/17 08:28 MCHC 33.7 g/dL (33.0-37.0) 06/20/17 08:28 RDW 12.7 % (11.5-14.5) 06/20/17 08:28 Plt Count 346 K/uL (130-400) 06/20/17 08:28 MPV 7.2 fL (7.2-11.7) 06/20/17 08:28 Neut % (Auto) 78.2 % (50.0-75.0) H 06/20/17 08:28 Lymph % (Auto) 9.9 % (20.0-40.0) L 06/20/17 08:28 Butts % (Auto) 10.9 % (0.0-10.0) H 06/20/17 08:28 Eos % (Auto) 0.8 % (0.0-4.0) 06/20/17 08:28 Baso % (Auto) 0.2 % (0.0-2.0) 06/20/17 08:28 Neut # 9.1 K/uL (1.8-7.0) H 06/20/17 08:28 Lymph # 1.2 K/uL (1.0-4.3) 06/20/17 08:28 Butts # 1.3 K/uL (0.0-0.8) H 06/20/17 08:28 Eos # 0.1 K/uL (0.0-0.7) 06/20/17 08:28 Baso # 0.0 K/uL (0.0-0.2) 06/20/17 08:28 Neutrophils % (Manual) 82 % (50-75) H 06/20/17 08:28 Band Neutrophils % 1 % (0-2) 06/18/17 02:06 Lymphocytes % (Manual) 9 % (20-40) L 06/20/17 08:28 Monocytes % (Manual) 9 % (0-10) 06/20/17 08:28 Platelet Estimate Normal (NORMAL) 06/20/17 08:28 RBC Morphology Normal 06/20/17 08:28 Poikilocytosis (manual Slight 06/18/17 02:06 Anisocytosis (manual) Slight 06/18/17 02:06 Sodium 134 mmol/L (132-148) 06/20/17 08:28 Potassium 3.9 mmol/L (3.6-5.2) 06/20/17 08:28 Chloride 101 mmol/L (98-107) 06/20/17 08:28 Carbon Dioxide 26 mmol/L (22-30) 06/20/17 08:28 Anion Gap 12 (10-20) 06/20/17 08:28 BUN 10 mg/dL (9-20) 06/20/17 08:28 Creatinine 0.7 mg/dL (0.8-1.5) L 06/20/17 08:28 Est GFR ( Amer) > 60 06/20/17 08:28 Est GFR (Non-Af Amer) > 60 06/20/17 08:28 POC Glucose (mg/dL) 114 mg/dL (65-110) H 06/18/17 09:53 Random Glucose 87 mg/dL (75-110) 06/20/17 08:28 Hemoglobin A1c 5.7 % (4.2-6.5) 06/20/17 11:11 Calcium 8.2 mg/dl (8.6-10.4) L 06/20/17 08:28 Phosphorus 3.4 mg/dL (2.5-4.5) 06/20/17 08:28 Magnesium 2.0 mg/dL (1.6-2.3) 06/20/17 08:28 Total Bilirubin 0.7 mg/dL (0.2-1.3) 06/20/17 08:28 AST 23 U/L (17-59) 06/20/17 08:28 ALT 34 U/L (21-72) 06/20/17 08:28 Alkaline Phosphatase 71 U/L (38-126) 06/20/17 08:28 Ammonia < 9 umol/L (9-33) L 06/18/17 06:43 Total Protein 5.9 g/dL (6.3-8.3) L 06/20/17 08:28 Albumin 3.5 g/dL (3.5-5.0) 06/20/17 08:28 Globulin 2.4 gm/dL (2.2-3.9) 06/20/17 08:28 Albumin/Globulin Ratio 1.4 (1.0-2.1) 06/20/17 08:28 Triglycerides 75 mg/dL (0-149) 06/20/17 08:28 Cholesterol 141 mg/dL (0-199) 06/20/17 08:28 LDL Cholesterol Direct 69 mg/dL (0-129) 06/20/17 08:28 HDL Cholesterol 59 mg/dL (30-70) 06/20/17 08:28 Vitamin B12 291 pg/mL (239-931) 06/18/17 06:43 Folate > 20.0 ng/mL 06/18/17 06:43 Free T4 1.10 ng/dL (0.78-2.19) 06/18/17 12:21 TSH 3rd Generation 0.50 mIU/L (0.46-4.68) 06/18/17 06:43 Urine Color Yellow (YELLOW) 06/18/17 09:03 Urine Clarity Clear (Clear) 06/18/17 09:03 Urine pH 5.0 (5.0-8.0) 06/18/17 09:03 Ur Specific [place] 1.023 (1.003-1.030) 06/18/17 09:03 Urine Protein Negative mg/dL (NEGATIVE) 06/18/17 09:03 Urine Glucose (UA) Normal mg/dL (Normal) 06/18/17 09:03 Urine Ketones 1+ mg/dL (NEGATIVE) H 06/18/17 09:03 Urine Blood Negative (NEGATIVE) 06/18/17 09:03 Urine Nitrate Negative (NEGATIVE) 06/18/17 09:03 Urine Bilirubin Negative (NEGATIVE) 06/18/17 09:03 Urine Urobilinogen Normal mg/dL (0.2-1.0) 06/18/17 09:03 Ur Leukocyte Esterase Neg Essence/uL (Negative) 06/18/17 09:03 Urine WBC (Auto) 1 /hpf (0-5) 06/18/17 09:03 Urine RBC (Auto) 3 /hpf (0-3) 06/18/17 09:03 Ur Squamous Epith Cells 1 /hpf (0-5) 06/18/17 09:03 Calcium Oxalate Crystal Rare /hpf (<OCC) 06/18/17 09:03 Urine Opiates Screen Negative (NEGATIVE) 06/18/17 02:20 Urine Methadone Screen Negative (NEGATIVE) 06/18/17 02:20 Ur Barbiturates Screen Negative (NEGATIVE) 06/18/17 02:20 Ur Phencyclidine Scrn Negative (NEGATIVE) 06/18/17 02:20 Ur Amphetamines Screen Negative (NEGATIVE) 06/18/17 02:20 U Benzodiazepines Scrn Negative (NEGATIVE) 06/18/17 02:20 U Oth Cocaine Metabols Negative (NEGATIVE) 06/18/17 02:20 U Cannabinoids Screen Negative (NEGATIVE) 06/18/17 02:20 Alcohol, Quantitative < 10 mg/dl (0-10) 06/18/17 02:06 RPR Nonreactive (NONREACTIVE) 06/18/17 12:21 HIV 1&2 Antibody Screen Negative (NEGATIVE) 06/18/17 12:21 Attending/Attestation - Attestation I have personally seen and examined this patient.: Yes I have fully participated in the care of the patient.: Yes I have reviewed all pertinent clinical information, including history, physical exam and plan: Yes Notes (Text): Patient seen, examined and case discussed with day-time resident. Patient seen this morning. Patient is aware he is at the Hospital, he is aware the holiday this week is Thanksgiving, patient reports disgust for the President but knows the name. 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 Discussed with case management and social work, patient is medically stable for discharge. Patient is stable from psych standpoint for discharge. We are awaiting computer aided drafter from the assisted living facility to evaluate the patient for rehab facility. Assessment/Plan 1.) Alzheimer's Disease * Psych consult Dr. Valente --> help appreciated * CT scan of the head is negative * X-ray shows a apical granuloma * CT scan of the chest is negative and unremarkable * UDS is negative * RPR and HIV negative * UA: urine only + for ketones * Brain MRI: Limited motion degraded study. No evidence of acute hemorrhage or infarct. Minor chronic white matter ischemic changes are felt be present. Moderate generalized volume loss. * RPR: nonreactive * HIV: negative * TSH: within normal * Folate: normal * B12: normal * Recommended to patient to follow-up with neurology outpatient and to establish care in the [facility] upon discharge Medications: * Aricept 10mg PO qHS * Namenda 10mg bid * Folic acid 1mg PO daily * Crestor 2.5mg PO HS 2.) Anemia * H/H: 11.3/33.0 * Monitor 3.) Hypokalemia * resolved 4) Abnormal Chest xray * CT Chest: no acute pathology noted; official report in the computer 5.) Impaired glucose tolerance * Hgba1c: 5.7 * Will need check in one year for a1c to prevent over diabetes 6.) HTN * continue home Cozaar 25mg PO daily * Aspirin 81mg PO daily 7.) Prophylaxis * Pepcid 20mg PO BID * Heparin 5000 units sc q8h * SCDs Disposition: pending approval to assisted living facility. Patient has discharge medicine order whenever spot opens.
== END 2017-06-20 16:30 | disposition left against medical advice (07) ==
LOC: C.ER 01:00 → C.9E 09:44 → UNDOADMOB 09:44 → INTOOBSV 09:44 → OBSVTOIN 11:36 → C.9E 12:22 → C.5S 12:22 → C.9E 15:16
PROVIDERS: ADMIT Hospitalist; ATTEND Hospitalist
DX: G30.9 Alzheimer's disease, unspecified (principal); F02.81 Dementia in other diseases classified elsewhere, unspecified severity, with behavioral disturbance; I10 Essential (primary) hypertension; D64.9 Anemia, unspecified; E87.6 Hypokalemia; Z82.0 Family history of epilepsy and other diseases of the nervous system; E78.5 Hyperlipidemia, unspecified; Z59.0 Homelessness
CPT/HCPCS: 36415; 70450; 70553; 71010; 71250; 80053; 80061; 80320; 80324; 80345; 80346; 80349; 80353; 80358; 80361; 81001; 82140; 82607; 82746; 82948; 83036; 83735; 83992; 84100; 84439; 84443; 85025; 86480; 86592; 86703; 93005; 96372; 97116; 97162; 99285; A9579; G0378; G8978; G8979; G8980; J1644; J3420; J7042

== ENCOUNTER 2017-06-21 19:18 | Inpatient (IN) | payer MEDICAID ==
--- NOTE | 2017-06-21 19:50 | C.PDOC ---
History Of Present Illness FOR READMISSION. PER EXWIFE, PT RETURNED TO HER HOUSE. PS LEFT HOSPITAL YESTERDAY "BC I THOUGHT I WAS DONE". SLEPT IN [place] LAST NIGHT. DENIES INJURY. EX STATES PT IS AT BASELINE. PENDING PLACEMENT AT ASSISTED LIVING EXAM NEG Time Seen by Provider: 06/21/17 19:41 Chief Complaint (Nursing): Medical Clearance History Per: Patient, Family (Ex-) History/Exam Limitations: no limitations Past Medical History Reviewed: Historical Data, Nursing Documentation, Vital Signs Vital Signs: Last Vital Signs Temp 98.4 F 06/21/17 19:31 Pulse 80 06/21/17 19:31 Resp 14 06/21/17 19:31 BP 121/76 06/21/17 19:31 Pulse Ox 97 06/21/17 20:50 - Medical History PMH: Alzheimer's Disease, Depression, HTN Family History: States: No Known Family Hx - Social History Hx Alcohol Use: No Hx Substance Use: No - Immunization History Hx Tetanus Toxoid Vaccination: No Hx Influenza Vaccination: No Hx Pneumococcal Vaccination: No Review Of Systems Except As Marked, All Systems Reviewed And Found Negative. Constitutional: Negative for: Fever Cardiovascular: Negative for: Chest Pain Respiratory: Negative for: Shortness of Breath Neurological: Negative for: Headache Psych: Negative for: Suicidal ideation Physical Exam - Physical Exam Appears: Non-toxic, No Acute Distress Skin: Warm, Dry, No Rash Head: Atraumatic, Normacephalic Oral Mucosa: Moist Cardiovascular: Rhythm Regular, No Murmur Respiratory: Normal Breath Sounds, No Rales, No Rhonchi, No Stridor, No Wheezing Gastrointestinal/Abdominal: Normal Exam, Soft, No Tenderness, No Guarding, No Rebound Extremity: Normal ROM, No Swelling Neurological/Psych: Oriented x3, Normal Speech, Normal Motor ED Course And Treatment - Laboratory Results Result Diagrams: 06/21/17 20:05 06/21/17 20:05 ECG: Interpreted By Me, Viewed By Me ECG Rhythm: Sinus Rhythm ECG Interpretation: Normal Rate From EC (BPM) O2 Sat by Pulse Oximetry: 97 (RA) Pulse Ox Interpretation: Normal - Radiology CXR: Interpreted by Me CXR Interpretation: Yes: No Acute Disease Progress - Re-Evaluation Re-evaluation Note: 06/21/17 20:49 LABS NO SIG CHANGE PRIOR D/W DR MOTA WILL ADMIT - Data Reviewed Data Reviewed: Lab, Diagnostic imaging, Old records - Continuity of Care Discussed patient case with:: Patient, Family-HIPPA compliant Medical Decision Making Medical Decision Making: PLAN: * CXR * EKG * CBC * BMP Disposition Counseled Patient/Family Regarding: Studies Performed, Diagnosis - Disposition Disposition: HOSPITALIZED Disposition Time: 20:49 Condition: STABLE - POA Present On Arrival: None - Clinical Impression Clinical Impression: Medical assessment, Dementia - Scribe Statement The provider has reviewed the documentation as recorded by the Krishan Giron Provider Attestation: All medical record entries made by the Johnnyibarpita were at my direction and personally dictated by me. I have reviewed the chart and agree that the record accurately reflects my personal performance of the history, physical exam, medical decision making, and the department course for this patient. I have also personally directed, reviewed, and agree with the discharge instructions and disposition. Decision To Admit - Pt Status Changed To: Hospital Disposition Of: Inpatient - Admit Certification Admit to Inpatient:: After my assessment, the patient will require hospitalization for at least two midnights. This is because of the severity of symptoms shown, intensity of services needed, and/or the medical risk in this patient being treated as an outpatient. - InPatient: Physician Admission Certification: I certify that this patient requires 2 or more midnights of care for the following reason:: SEE NOTE - . Bed Request Type: Regular Admitting Physician: Rai Mota Patient Diagnosis: Medical assessment, Dementia
[2017-06-21 20:11] LABS: BASO # 0.1 K/uL (0.0-0.2); BASO % 0.5 % (0.0-2.0); EOS # 0.1 K/uL (0.0-0.7); EOS % 0.6 % (0.0-4.0); LYMPH # 0.9 K/uL (1.0-4.3); LYMPH % 8.9 % (20.0-40.0); MEAN CELL VOLUME 94.6 fL (80.0-94.0); MEAN CORPUSCULAR HEMOGLOBIN 31.8 pg (27.0-31.0); MEAN CORPUSCULAR HGB CONC 33.6 g/dL (33.0-37.0); MEAN PLATELET VOLUME 6.8 fL (7.2-11.7); MONO % 10.6 % (0.0-10.0); NEUT # 7.8 K/uL (1.8-7.0); NEUT % 79.4 % (50.0-75.0); PLATELET COUNT 362 K/uL (130-400); RED CELL DISTRIBUTION WIDTH 12.9 % (11.5-14.5); WHITE BLOOD COUNT 9.8 K/uL (4.8-10.8)
[2017-06-21 20:44] LABS: BLOOD UREA NITROGEN 18 mg/dL (9-20); CALCIUM 8.7 mg/dl (8.6-10.4); GFR AFRICAN-AMERICAN > 60; GFR NON-AFRICAN AMERICAN > 60
--- NOTE | 2017-06-21 21:07 | CP.PCM.HP ---
<JingjacobGreer Willie - Last Filed: 06/21/17 22:58> History of Present Illness - History of Present Illness History of Present Illness: CC: Confused HPI: Patient is a 61 year old male with a history of early onset dementia. Patient eloped from the hospital on 06/20 (yesterday) because he thought he was discharged. Patient says he does not remember leaving the hospital though which scares him. Patient came back to the hospital today because his ex found out about what happened and told him he needed to return. Patient says he is feeling well. He denies changes in vision, hearing, dizziness, chest pain, shortness of breath, nausea, vomiting, diarrhea, joint pain, stiffness, muscle weakness, depression, or anxiety but does report feeling confused. He does not remember which hospital he is in but knows he is in [place]. He knows it is 2016 but says the month is July. When told it is May and asked which holiday it is, he does not know. He knows Cynthia is the President. PMH: Dementia, HTN, hyperlipidemia PSH: denies FH: patient's mother from Alzheimer's disease, father had a stroke and NV in his late 60s. SH: Homeless, unemployed, denies smoking, etoh use, or drug use. Allergies: NKDA Present on Admission - Present on Admission Any Indicators Present on Admission: No History of DVT/PE: No History of Uncontrolled Diabetes: No Urinary Catheter: No Decubitus Ulcer Present: No Review of Systems - Review of Systems Systems not reviewed;Unavailable: Dementia - Constitutional Constitutional: absent: Chills, Fatigue - EENT Eyes: absent: Blurred Vision, Diplopia - Cardiovascular Cardiovascular: absent: Chest Pain, Chest Pain at Rest, Claudication, Dyspnea, Irregular Heart Rhythm, Leg Edema, Palpitations - Respiratory Respiratory: absent: Cough, Wheezing, Stridor - Gastrointestinal Gastrointestinal: absent: Abdominal Pain, Constipation, Diarrhea, Nausea, Vomiting - Genitourinary Genitourinary: absent: Difficulty Urinating - Musculoskeletal Musculoskeletal: absent: Numbness, Tingling - Integumentary Integumentary: absent: Rash - Neurological Neurological: Memory Loss - Psychiatric Psychiatric: Confusion, Memory Loss - Hematologic/Lymphatic Hematologic: absent: Easy Bleeding, Easy Bruising Past Patient History - Past Social History Smoking Status: Never Smoked - CARDIAC Hx Hypertension: Yes - PULMONARY Hx Tuberculosis: No - NEUROLOGICAL Hx Alzheimer's Disease: Yes - HEMATOLOGICAL/ONCOLOGICAL Hx Human Immunodeficiency Virus (HIV): No - MUSCULOSKELETAL/RHEUMATOLOGICAL Hx Falls: Yes - GENITOURINARY/GYNECOLOGICAL Hx Sexually Transmitted Disorders: No - PSYCHIATRIC Hx Depression: Yes Hx Substance Use: No - SURGICAL HISTORY Hx Surgeries: Yes Other/Comment: MOLE - REMOVAL FROM FACE - ANESTHESIA Hx Anesthesia: Yes Hx Anesthesia Reactions: No Meds Allergies/Adverse Reactions: Allergies Allergy/AdvReac Type Severity Reaction Status Date / Time No Known Allergies Allergy Verified 06/21/17 19:34 Physical Exam - Constitutional Appears: Non-toxic, No Acute Distress - Head Exam Head Exam: ATRAUMATIC, NORMAL INSPECTION, NORMOCEPHALIC - Eye Exam Eye Exam: EOMI, Normal appearance - ENT Exam ENT Exam: Mucous Membranes Moist - Respiratory Exam Respiratory Exam: Clear to Auscultation Bilateral, NORMAL BREATHING PATTERN - Cardiovascular Exam Cardiovascular Exam: REGULAR RHYTHM, RRR, +S1, +S2 - GI/Abdominal Exam GI & Abdominal Exam: Normal Bowel Sounds, Soft. absent: Tenderness - Extremities Exam Extremities exam: Positive for: normal inspection. Negative for: pedal edema, tenderness Results - Vital Signs Recent Vital Signs: Last Vital Signs Temp 98.4 F 06/21/17 19:31 Pulse 80 06/21/17 19:31 Resp 14 06/21/17 19:31 BP 121/76 06/21/17 19:31 Pulse Ox 97 06/21/17 20:50 - Labs Result Diagrams: 06/21/17 20:05 06/21/17 20:05 Labs: Laboratory Results - last 24 hr 06/21/17 06/21/17 20:05 20:05 WBC 9.8 RBC 4.10 L Hgb 13.0 Hct 38.7 MCV 94.6 H MCH 31.8 H MCHC 33.6 RDW 12.9 Plt Count 362 MPV 6.8 L Neut % (Auto) 79.4 H Lymph % (Auto) 8.9 L [place] % (Auto) 10.6 H Eos % (Auto) 0.6 Baso % (Auto) 0.5 Neut # 7.8 H Lymph # 0.9 L [place] # 1.0 H Eos # 0.1 Baso # 0.1 Sodium 136 Potassium 4.0 Chloride 103 Carbon Dioxide 24 Anion Gap 14 BUN 18 Creatinine 0.8 Est GFR ( Amer) > 60 Est GFR (Non-Af Amer) > 60 Random Glucose 108 Calcium 8.7 Assessment & Plan - Assessment and Plan (Free Text) Assessment: 1.) Altered mental status secondary to Alzheimer's Disease Medications: * Aricpet 10mg * Namenda 10mg bid 1:1 observation from previous admission: - CT scan of the head is negative - X-ray shows a apical granuloma - CT scan of the chest is negative and unremarkable - UDS is negative - RPR and HIV negative - UA: urine only + for ketones - Brain MRI: Limited motion degraded study. No evidence of acute hemorrhage or infarct. Minor chronic white matter ischemic changes are felt be present. Moderate generalized volume loss. 2.) HTN - continue home Cozaar 25mg 3.) Prophylaxis - Pepcid 20mg - Heparin 5000 units sc q8h - SCDs Disposition: pending approval to rehab <Rai Mota - Last Filed: 06/22/17 06:28> Results - Vital Signs Recent Vital Signs: Last Vital Signs Temp 98.2 F 06/22/17 02:27 Pulse 86 06/22/17 02:27 Resp 18 06/22/17 02:27 BP 132/87 06/22/17 02:27 Pulse Ox 98 06/22/17 02:27 - Labs Result Diagrams: 06/21/17 20:05 06/21/17 20:05 Labs: Laboratory Results - last 24 hr 06/21/17 06/21/17 06/21/17 20:05 20:05 22:04 WBC 9.8 RBC 4.10 L Hgb 13.0 Hct 38.7 MCV 94.6 H MCH 31.8 H MCHC 33.6 RDW 12.9 Plt Count 362 MPV 6.8 L Neut % (Auto) 79.4 H Lymph % (Auto) 8.9 L Coryell % (Auto) 10.6 H Eos % (Auto) 0.6 Baso % (Auto) 0.5 Neut # 7.8 H Lymph # 0.9 L [place] # 1.0 H Eos # 0.1 Baso # 0.1 Neutrophils % (Manual) 82 H Lymphocytes % (Manual) 10 L Monocytes % (Manual) 7 Basophils % (Manual) 1 Platelet Estimate Normal PT 11.8 INR 1.1 APTT 32 Sodium 136 Potassium 4.0 Chloride 103 Carbon Dioxide 24 Anion Gap 14 BUN 18 Creatinine 0.8 Est GFR ( Amer) > 60 Est GFR (Non-Af Amer) > 60 Random Glucose 108 Calcium 8.7 Assessment & Plan - Date & Time Date: 06/22/17 (I have seen and examined the patient. I agree with the findings and plan of care as documented by Dr. Kim. Patient with dementia/ Alzheimer's. Patient absconded on prior admission. Unsafe discharge due to baseline confusion. Was awaiting shelter placement prior to leaving. Monitor for acute changes. Continue home meds.) Time: 06:25 Attending/Attestation - Attestation I have personally seen and examined this patient.: Yes I have fully participated in the care of the patient.: Yes I have reviewed all pertinent clinical information: Yes
[2017-06-21 21:32] LABS: BASOPHIL 1 % (0-2); LYMPHOCYTE 10 % (20-40); MONOCYTE 7 % (0-10); NEUTROPHIL 82 % (50-75); PLATELET ESTIMATE NORMAL (NORMAL); TOTAL CELLS COUNTED 100
[2017-06-21 22:16] LABS: INR 1.1; PROTHROMBIN TIME 11.8 SECONDS (9.7-12.2)
--- NOTE | 2017-06-22 07:20 | CP.PCM.PN ---
<Vidya Jean-Baptiste - Last Filed: 06/22/17 17:48> Subjective - Date & Time of Evaluation Date of Evaluation: 06/22/17 Time of Evaluation: 07:20 - Subjective Subjective: Medicine progress note for Dr. Sawyer Patient was seen and examined at bedside in no acute distress. Patient reports feeling well today and has no complaints. Patient denies having chest pain, shortness of breath, abdominal pain, nausea, vomiting, fevers, and headaches. Objective - Vital Signs/Intake and Output Vital Signs (last 24 hours): Temp Pulse Resp BP Pulse Ox 98.2 F 86 18 132/87 98 06/22/17 02:27 06/22/17 02:27 06/22/17 02:27 06/22/17 02:27 06/22/17 02:27 Intake and Output: 06/22/17 06/22/17 06:59 18:59 Intake Total 150 Balance 150 - Medications Medications: Current Medications Donepezil HCl (Aricept) 10 mg PO HS [facility] Last Admin: 06/21/17 21:48 Dose: 10 mg Famotidine (Pepcid) 20 mg PO DAILY [facility] Heparin Sodium (Porcine) (Heparin) 5,000 units SC Q8 [facility] Last Admin: 06/22/17 07:00 Dose: 5,000 units Losartan Potassium (Cozaar) 25 mg PO DAILY [facility] Memantine (Namenda) 10 mg PO BID [facility] Last Admin: 06/21/17 21:48 Dose: 10 mg Pneumococcal Polyvalent Vaccine (Pneumovax 23 Vaccine) 0.5 ml IM .ONCE ONE Stop: 06/24/17 14:01 - Labs Labs: 06/21/17 20:05 06/21/17 20:05 PT 11.8 SECONDS (9.7-12.2) 06/21/17 22:04 INR 1.1 06/21/17 22:04 APTT 32 SECONDS (21-34) 06/21/17 22:04 - Constitutional Appears: No Acute Distress - Head Exam Head Exam: ATRAUMATIC, NORMAL INSPECTION - Eye Exam Eye Exam: EOMI, Normal appearance - ENT Exam ENT Exam: Mucous Membranes Moist - Respiratory Exam Respiratory Exam: Clear to Ausculation Bilateral, NORMAL BREATHING PATTERN. absent: Rales, Rhonchi, Wheezes, Respiratory Distress - Cardiovascular Exam Cardiovascular Exam: REGULAR RHYTHM, +S1, +S2 - GI/Abdominal Exam GI & Abdominal Exam: Soft, Normal Bowel Sounds. absent: Distended, Firm, Tenderness - Extremities Exam Extremities Exam: Normal Inspection. absent: Calf Tenderness, Tenderness - Neurological Exam Neurological Exam: Alert, Awake, Oriented x3 - Psychiatric Exam Psychiatric exam: Normal Affect, Normal Mood - Skin Skin Exam: Dry, Intact, Normal Color, Warm Assessment and Plan (1) Dementia Status: Chronic (2) HTN (hypertension) Status: Chronic - Assessment and Plan (Free Text) Plan: (1) Dementia Medications: * Aricpet 10mg * Namenda 10mg bid 1:1 observation From previous admission: * CT scan of the head is negative * X-ray shows a apical granuloma * CT scan of the chest is negative and unremarkable * UDS is negative * RPR and HIV negative * UA: urine only + for ketones * Brain MRI: Limited motion degraded study. No evidence of acute hemorrhage or infarct. Minor chronic white matter ischemic changes are felt be present. Moderate generalized volume loss. (2) HTN (hypertension) - Continue home Cozaar 25mg (3) Prophylaxis - Pepcid 20mg - Heparin 5000 units sc q8h - SCDs Disposition: Pending approval to assisted living <Tamera Sawyer V - Last Filed: 06/22/17 23:08> Objective - Vital Signs/Intake and Output Vital Signs (last 24 hours): Temp Pulse Resp BP Pulse Ox 97.3 F L 76 20 124/74 98 06/22/17 16:30 06/22/17 16:30 06/22/17 16:30 06/22/17 16:30 06/22/17 16:30 - Medications Medications: Current Medications Donepezil HCl (Aricept) 10 mg PO HS [facility] Last Admin: 06/22/17 21:30 Dose: 10 mg Famotidine (Pepcid) 20 mg PO DAILY [facility] Last Admin: 06/22/17 09:11 Dose: 20 mg Heparin Sodium (Porcine) (Heparin) 5,000 units SC Q8 [facility] Last Admin: 06/22/17 21:30 Dose: 5,000 units Losartan Potassium (Cozaar) 25 mg PO DAILY [facility] Last Admin: 06/22/17 09:11 Dose: 25 mg Memantine (Namenda) 10 mg PO BID [facility] Last Admin: 06/22/17 17:21 Dose: 10 mg Pneumococcal Polyvalent Vaccine (Pneumovax 23 Vaccine) 0.5 ml IM .ONCE ONE Stop: 06/24/17 14:01 - Labs Labs: 06/22/17 07:59 06/22/17 07:59 PT 11.8 SECONDS (9.7-12.2) 06/21/17 22:04 INR 1.1 06/21/17 22:04 APTT 32 SECONDS (21-34) 06/21/17 22:04 Attending/Attestation - Attestation I have personally seen and examined this patient.: Yes I have fully participated in the care of the patient.: Yes I have reviewed all pertinent clinical information, including history, physical exam and plan: Yes Notes (Text): Patient seen, examined and case discussed with day-time resident. Patient is awake, alert, oriented X3. patient able to identify the President is Cynthia, error in date which is the . Patient reports he left the hospital last time because he thought he was supposed to leave. I told the patient we are waiting for a person from the assisted living center to see him and when he is approved then he can go there. patient reports he [place] the [place] and then went to his ex-'s place who was expeciting him following last hospitalization. patient is on 1:1 events noted. Note this assessment/plan includes most recent workup from prior hospitalization. Assessment/Plan 1.) Alzheimer's Disease * Psych consult Dr. Valente --> help appreciated * CT scan of the head is negative * X-ray shows a apical granuloma * CT scan of the chest is negative and unremarkable * UDS is negative * RPR and HIV negative * UA: urine only + for ketones * Brain MRI: Limited motion degraded study. No evidence of acute hemorrhage or infarct. Minor chronic white matter ischemic changes are felt be present. Moderate generalized volume loss. * RPR: nonreactive * HIV: negative * TSH: within normal * Folate: normal * B12: normal * Recommended to patient to follow-up with neurology outpatient and to establish care in the [facility] upon discharge Medications: * Aricept 10mg PO qHS * Namenda 10mg bid * Folic acid 1mg PO daily * Crestor 2.5mg PO HS 2.) Anemia * H/H: 11.3/33.0 * Monitor 3.) Hypokalemia * resolved 4) Abnormal Chest xray * CT Chest: no acute pathology noted; official report in the computer 5.) Impaired glucose tolerance * Hgba1c: 5.7 * Will need check in one year for a1c to prevent over diabetes 6.) HTN * continue home Cozaar 25mg PO daily * Aspirin 81mg PO daily 7.) Prophylaxis * Pepcid 20mg PO BID * Heparin 5000 units sc q8h * SCDs Disposition: pending approval to assisted living facility. Patient has discharge medicine order whenever spot opens. c/w 1:1 given patient's recent elopement in prior hospitalization.
[2017-06-22 08:13] LABS: BASO % 0.4 % (0.0-2.0); EOS # 0.2 K/uL (0.0-0.7); EOS % 1.8 % (0.0-4.0); HEMOGLOBIN 12.9 g/dL (12.0-18.0); LYMPH # 1.2 K/uL (1.0-4.3); LYMPH % 14.7 % (20.0-40.0); MEAN CELL VOLUME 94.1 fL (80.0-94.0); MEAN CORPUSCULAR HEMOGLOBIN 32.5 pg (27.0-31.0); MEAN CORPUSCULAR HGB CONC 34.6 g/dL (33.0-37.0); MEAN PLATELET VOLUME 7.2 fL (7.2-11.7); MONO # 0.9 K/uL (0.0-0.8); MONO % 10.2 % (0.0-10.0); NEUT # 6.2 K/uL (1.8-7.0); NEUT % 72.9 % (50.0-75.0); RBC 3.97 Mil/uL (4.40-5.90); RED CELL DISTRIBUTION WIDTH 12.5 % (11.5-14.5); WHITE BLOOD COUNT 8.5 K/uL (4.8-10.8)
[2017-06-22 08:40] LABS: ALB/GLOB RATIO 1.4 (1.0-2.1); ALBUMIN 3.3 g/dL (3.5-5.0); ALT/SGPT 55 U/L (21-72); AST/SGOT 39 U/L (17-59); BLOOD UREA NITROGEN 15 mg/dL (9-20); CALCIUM 8.2 mg/dl (8.6-10.4); GFR AFRICAN-AMERICAN > 60; GFR NON-AFRICAN AMERICAN > 60
--- NOTE | 2017-06-22 09:30 | RAD ---
HISTORY: MED CLEAR COMPARISON: Portable chest 06/18/2017. TECHNIQUE: Chest PA and lateral FINDINGS: LUNGS: No active pulmonary disease. Improved inspiratory volume is identified. PLEURA: No significant pleural effusion identified. No pneumothorax apparent. CARDIOVASCULAR: Normal. OSSEOUS STRUCTURES: No significant abnormalities. VISUALIZED UPPER ABDOMEN: Normal. OTHER FINDINGS: None. IMPRESSION: No interval acute cardiopulmonary disease appreciated.
--- NOTE | 2017-06-23 04:25 | CP.PCM.PN ---
<JrJennifer DontaeColt - Last Filed: 06/23/17 04:23> Subjective - Date & Time of Evaluation Date of Evaluation: 06/23/17 Time of Evaluation: 04:24 - Subjective Subjective: Patient was seen and examined at bedside. Patient denies any complaints at this time. Patient denies shortness of breath, chest pain, nausea, vomiting, diarrhea or constipation. Objective - Vital Signs/Intake and Output Vital Signs (last 24 hours): Temp Pulse Resp BP Pulse Ox 98 F 69 18 122/73 99 06/22/17 23:49 06/22/17 23:49 06/22/17 23:49 06/22/17 23:49 06/22/17 23:49 Intake and Output: 06/22/17 06/23/17 18:59 06:59 Intake Total 700 Balance 700 - Medications Medications: Current Medications Donepezil HCl (Aricept) 10 mg PO HS [facility] Last Admin: 06/22/17 21:30 Dose: 10 mg Famotidine (Pepcid) 20 mg PO DAILY [facility] Last Admin: 06/22/17 09:11 Dose: 20 mg Heparin Sodium (Porcine) (Heparin) 5,000 units SC Q8 [facility] Last Admin: 06/22/17 21:30 Dose: 5,000 units Losartan Potassium (Cozaar) 25 mg PO DAILY [facility] Last Admin: 06/22/17 09:11 Dose: 25 mg Memantine (Namenda) 10 mg PO BID [facility] Last Admin: 06/22/17 17:21 Dose: 10 mg Pneumococcal Polyvalent Vaccine (Pneumovax 23 Vaccine) 0.5 ml IM .ONCE ONE Stop: 06/24/17 14:01 - Labs Labs: 06/22/17 07:59 06/22/17 07:59 PT 11.8 SECONDS (9.7-12.2) 06/21/17 22:04 INR 1.1 06/21/17 22:04 APTT 32 SECONDS (21-34) 06/21/17 22:04 - Constitutional Appears: No Acute Distress - Head Exam Head Exam: ATRAUMATIC, NORMAL INSPECTION - Eye Exam Eye Exam: EOMI, Normal appearance - ENT Exam ENT Exam: Mucous Membranes Moist - Respiratory Exam Respiratory Exam: Clear to Ausculation Bilateral, NORMAL BREATHING PATTERN - Cardiovascular Exam Cardiovascular Exam: REGULAR RHYTHM, +S1, +S2 - GI/Abdominal Exam GI & Abdominal Exam: Soft, Normal Bowel Sounds. absent: Tenderness - Extremities Exam Extremities Exam: Normal Inspection - Neurological Exam Neurological Exam: Alert, Awake - Psychiatric Exam Psychiatric exam: Normal Affect, Normal Mood - Skin Skin Exam: Normal Color, Warm Assessment and Plan - Assessment and Plan (Free Text) Assessment: (1) Dementia Medications: * Aricpet 10mg * Namenda 10mg bid 1:1 observation From previous admission: * CT scan of the head is negative * X-ray shows a apical granuloma * CT scan of the chest is negative and unremarkable * UDS is negative * RPR and HIV negative * UA: urine only + for ketones * Brain MRI: Limited motion degraded study. No evidence of acute hemorrhage or infarct. Minor chronic white matter ischemic changes are felt be present. Moderate generalized volume loss. (2) HTN (hypertension) - Continue home Cozaar 25mg (3) Prophylaxis - Pepcid 20mg - Heparin 5000 units sc q8h - SCDs Disposition: Pending approval to assisted living <Tamera Sawyer V - Last Filed: 06/23/17 13:04> Objective - Vital Signs/Intake and Output Vital Signs (last 24 hours): Temp Pulse Resp BP Pulse Ox 98 F 69 18 126/70 99 06/22/17 23:49 06/22/17 23:49 06/22/17 23:49 06/23/17 09:38 06/22/17 23:49 Intake and Output: 06/23/17 06/23/17 06:59 18:59 Intake Total 700 Balance 700 - Medications Medications: Current Medications Donepezil HCl (Aricept) 10 mg PO HS [facility] Last Admin: 06/22/17 21:30 Dose: 10 mg Famotidine (Pepcid) 20 mg PO DAILY [facility] Last Admin: 06/23/17 09:37 Dose: 20 mg Heparin Sodium (Porcine) (Heparin) 5,000 units SC Q8 [facility] Last Admin: 06/23/17 13:03 Dose: 5,000 units Losartan Potassium (Cozaar) 25 mg PO DAILY [facility] Last Admin: 06/23/17 09:37 Dose: 25 mg Memantine (Namenda) 10 mg PO BID [facility] Last Admin: 06/23/17 09:37 Dose: 10 mg Pneumococcal Polyvalent Vaccine (Pneumovax 23 Vaccine) 0.5 ml IM .ONCE ONE Stop: 06/24/17 14:01 - Labs Labs: 06/23/17 08:34 06/23/17 08:34 PT 11.8 SECONDS (9.7-12.2) 06/21/17 22:04 INR 1.1 06/21/17 22:04 APTT 32 SECONDS (21-34) 06/21/17 22:04 Attending/Attestation - Attestation I have personally seen and examined this patient.: Yes I have fully participated in the care of the patient.: Yes I have reviewed all pertinent clinical information, including history, physical exam and plan: Yes Notes (Text): Patient seen, examined and case discussed with day-time resident. Patient is awake, alert, oriented X3. patient able to identify the President is Cynthia, error in date which is the . Patient's room changed to 1:1 room. Patient tolerated lunch at bedside. Patient denies acute complaints. Assessment/Plan 1.) Alzheimer's Disease * Psych consult Dr. Valente --> help appreciated * CT scan of the head is negative * X-ray shows a apical granuloma * CT scan of the chest is negative and unremarkable * UDS is negative * RPR and HIV negative * UA: urine only + for ketones * Brain MRI: Limited motion degraded study. No evidence of acute hemorrhage or infarct. Minor chronic white matter ischemic changes are felt be present. Moderate generalized volume loss. * RPR: nonreactive * HIV: negative * TSH: within normal * Folate: normal * B12: normal * Recommended to patient to follow-up with neurology outpatient and to establish care in the [facility] upon discharge Medications: * Aricept 10mg PO qHS * Namenda 10mg bid * Folic acid 1mg PO daily * Crestor 2.5mg PO HS 2.) Anemia * H/H: 11.3/33.0 * Monitor 3.) Hypokalemia * resolved 4) Abnormal Chest xray * CT Chest: no acute pathology noted; official report in the computer 5.) Impaired glucose tolerance * Hgba1c: 5.7 * Will need check in one year for a1c to prevent over diabetes 6.) HTN * continue home Cozaar 25mg PO daily * Aspirin 81mg PO daily 7.) Prophylaxis * Pepcid 20mg PO BID * Heparin 5000 units sc q8h * SCDs Disposition: pending approval to assisted living facility. Patient has discharge medicine order whenever spot opens. c/w 1:1 given patient's recent elopement in prior hospitalization.
[2017-06-23 08:53] LABS: BASO % 0.6 % (0.0-2.0); EOS # 0.1 K/uL (0.0-0.7); EOS % 2.3 % (0.0-4.0); HEMOGLOBIN 13.5 g/dL (12.0-18.0); LYMPH # 1.2 K/uL (1.0-4.3); LYMPH % 20.3 % (20.0-40.0); MEAN CELL VOLUME 94.4 fL (80.0-94.0); MEAN CORPUSCULAR HEMOGLOBIN 32.2 pg (27.0-31.0); MEAN CORPUSCULAR HGB CONC 34.1 g/dL (33.0-37.0); MEAN PLATELET VOLUME 7.2 fL (7.2-11.7); MONO # 0.6 K/uL (0.0-0.8); MONO % 9.7 % (0.0-10.0); NEUT # 3.9 K/uL (1.8-7.0); NEUT % 67.1 % (50.0-75.0); RBC 4.2 Mil/uL (4.40-5.90); RED CELL DISTRIBUTION WIDTH 12.9 % (11.5-14.5); WHITE BLOOD COUNT 5.7 K/uL (4.8-10.8)
[2017-06-23 09:20] LABS: ALB/GLOB RATIO 1.5 (1.0-2.1); ALBUMIN 3.6 g/dL (3.5-5.0); ALT/SGPT 50 U/L (21-72); AST/SGOT 30 U/L (17-59); BLOOD UREA NITROGEN 14 mg/dL (9-20); CALCIUM 8.4 mg/dl (8.6-10.4); GFR AFRICAN-AMERICAN > 60; GFR NON-AFRICAN AMERICAN > 60
--- NOTE | 2017-06-23 16:58 | CARD ---
APPROVED REPORT EKG Measurement Heart [id number] <Conclusion> Normal sinus rhythm Possible Left atrial enlargement Borderline ECG
--- NOTE | 2017-06-24 06:18 | CP.PCM.PN ---
<NorrisJennifer francois - Last Filed: 06/24/17 06:45> Subjective - Date & Time of Evaluation Date of Evaluation: 06/24/17 Time of Evaluation: 05:00 - Subjective Subjective: Patient was seen and examined at bedside. Patient denies any complaints at this time. Patient denies shortness of breath, chest pain, nausea, vomiting, diarrhea or constipation. Objective - Vital Signs/Intake and Output Vital Signs (last 24 hours): Temp Pulse Resp BP Pulse Ox 98.2 F 89 18 129/70 98 06/23/17 23:48 06/23/17 23:48 06/23/17 23:48 06/23/17 23:48 06/23/17 23:48 - Medications Medications: Current Medications Donepezil HCl (Aricept) 10 mg PO HS [facility] Last Admin: 06/23/17 22:02 Dose: 10 mg Famotidine (Pepcid) 20 mg PO DAILY [facility] Last Admin: 06/23/17 09:37 Dose: 20 mg Heparin Sodium (Porcine) (Heparin) 5,000 units SC Q8 [facility] Last Admin: 06/24/17 06:02 Dose: 5,000 units Losartan Potassium (Cozaar) 25 mg PO DAILY [facility] Last Admin: 06/23/17 09:37 Dose: 25 mg Memantine (Namenda) 10 mg PO BID [facility] Last Admin: 06/23/17 17:44 Dose: 10 mg Pneumococcal Polyvalent Vaccine (Pneumovax 23 Vaccine) 0.5 ml IM .ONCE ONE Stop: 06/24/17 14:01 - Labs Labs: 06/23/17 08:34 06/23/17 08:34 PT 11.8 SECONDS (9.7-12.2) 06/21/17 22:04 INR 1.1 06/21/17 22:04 APTT 32 SECONDS (21-34) 06/21/17 22:04 - Constitutional Appears: No Acute Distress - Head Exam Head Exam: ATRAUMATIC, NORMAL INSPECTION - Eye Exam Eye Exam: EOMI, Normal appearance - ENT Exam ENT Exam: Mucous Membranes Moist - Respiratory Exam Respiratory Exam: Clear to Ausculation Bilateral, NORMAL BREATHING PATTERN - Cardiovascular Exam Cardiovascular Exam: REGULAR RHYTHM, +S1, +S2 - GI/Abdominal Exam GI & Abdominal Exam: Soft, Normal Bowel Sounds. absent: Tenderness - Extremities Exam Extremities Exam: Normal Inspection - Neurological Exam Neurological Exam: Alert, Awake - Psychiatric Exam Psychiatric exam: Normal Affect, Normal Mood - Skin Skin Exam: Normal Color, Warm Assessment and Plan - Assessment and Plan (Free Text) Assessment: (1) Dementia Medications: * Aricpet 10mg * Namenda 10mg bid 1:1 observation From previous admission: * CT scan of the head is negative * X-ray shows a apical granuloma * CT scan of the chest is negative and unremarkable * UDS is negative * RPR and HIV negative * UA: urine only + for ketones * Brain MRI: Limited motion degraded study. No evidence of acute hemorrhage or infarct. Minor chronic white matter ischemic changes are felt be present. Moderate generalized volume loss. (2) HTN (hypertension) - Continue home Cozaar 25mg (3) Prophylaxis - Pepcid 20mg - Heparin 5000 units sc q8h - SCDs Disposition: Pending approval to assisted living <Tamera Sawyer V - Last Filed: 06/24/17 16:58> Objective - Vital Signs/Intake and Output Vital Signs (last 24 hours): Temp Pulse Resp BP Pulse Ox 98.2 F 82 20 107/65 96 06/24/17 16:44 06/24/17 16:44 06/24/17 16:44 06/24/17 16:44 06/24/17 16:44 - Medications Medications: Current Medications Donepezil HCl (Aricept) 10 mg PO HS [facility] Last Admin: 06/23/17 22:02 Dose: 10 mg Famotidine (Pepcid) 20 mg PO DAILY [facility] Last Admin: 06/24/17 10:07 Dose: 20 mg Heparin Sodium (Porcine) (Heparin) 5,000 units SC Q8 [facility] Last Admin: 06/24/17 13:07 Dose: Not Given Losartan Potassium (Cozaar) 25 mg PO DAILY [facility] Last Admin: 06/24/17 10:07 Dose: 25 mg Memantine (Namenda) 10 mg PO BID [facility] Last Admin: 06/24/17 10:07 Dose: 10 mg - Labs Labs: 06/23/17 08:34 06/23/17 08:34 PT 11.8 SECONDS (9.7-12.2) 06/21/17 22:04 INR 1.1 06/21/17 22:04 APTT 32 SECONDS (21-34) 06/21/17 22:04 Attending/Attestation - Attestation I have personally seen and examined this patient.: Yes I have fully participated in the care of the patient.: Yes I have reviewed all pertinent clinical information, including history, physical exam and plan: Yes Notes (Text): Patient seen, examined and case discussed with day-time resident. Patient is awake, alert, oriented X3. patient able to identify the President is Cynthia, error in date which is the . Patient's room changed to 1:1 room. Patient tolerated lunch at bedside. Patient denies acute complaints. Assessment/Plan 1.) Alzheimer's Disease * Family Hx: patient had Alzheimer's Disease at age 71 * Patient was told by a neurologist he has early signs of dementia * Psych consult Dr. Valente --> help appreciated * CT scan of the head is negative * X-ray shows a apical granuloma * CT scan of the chest is negative and unremarkable * UDS is negative * RPR and HIV negative * UA: urine only + for ketones * Brain MRI: Limited motion degraded study. No evidence of acute hemorrhage or infarct. Minor chronic white matter ischemic changes are felt be present. Moderate generalized volume loss. * RPR: nonreactive * HIV: negative * TSH: within normal * Folate: normal * B12: normal * Recommended to patient to follow-up with neurology outpatient and to establish care in the [facility] upon discharge Medications: * Aricept 10mg PO qHS * Namenda 10mg bid * Folic acid 1mg PO daily * Crestor 2.5mg PO HS 2.) Anemia * H/H: 11.3/33.0 * Monitor 3.) Hypokalemia * resolved 4) Abnormal Chest xray * CT Chest: no acute pathology noted; official report in the computer 5.) Impaired glucose tolerance * Hgba1c: 5.7 * Will need check in one year for a1c to prevent over diabetes 6.) HTN * continue home Cozaar 25mg PO daily * Aspirin 81mg PO daily 7.) Prophylaxis * Pepcid 20mg PO BID * Heparin 5000 units sc q8h * SCDs Disposition: pending approval to assisted living facility when receives approval , please contact medicine team for discharge order. c/w 1:1 given patient's recent elopement in prior hospitalization.
[2017-06-24] MEDS ORDERED: Pneumococcal 23-Valent Vaccine IM ONE (14:00)
--- NOTE | 2017-06-25 10:22 | CP.PCM.PN ---
<Vidya Jean-Baptiste - Last Filed: 06/25/17 13:29> Subjective - Date & Time of Evaluation Date of Evaluation: 06/25/17 Time of Evaluation: 10:19 - Subjective Subjective: Medicine Progress Note for Dr. Damon Patient was seen and examined at bedside in no acute distress. Patient sitting in bed comfortably eating breakfast. He reports feeling well and has no complaints. ROS otherwise negative. Patient waiting for placement at assisted living. Objective - Vital Signs/Intake and Output Vital Signs (last 24 hours): Temp Pulse Resp BP Pulse Ox 97.7 F 68 20 113/70 96 06/25/17 07:31 06/25/17 07:31 06/25/17 07:31 06/25/17 07:31 06/25/17 07:31 - Medications Medications: Current Medications Donepezil HCl (Aricept) 10 mg PO HS [facility] Last Admin: 06/24/17 21:21 Dose: 10 mg Famotidine (Pepcid) 20 mg PO DAILY [facility] Last Admin: 06/25/17 09:34 Dose: 20 mg Losartan Potassium (Cozaar) 25 mg PO DAILY [facility] Last Admin: 06/25/17 09:34 Dose: 25 mg Memantine (Namenda) 10 mg PO BID [facility] Last Admin: 06/25/17 09:34 Dose: 10 mg - Labs Labs: 06/23/17 08:34 06/23/17 08:34 PT 11.8 SECONDS (9.7-12.2) 06/21/17 22:04 INR 1.1 06/21/17 22:04 APTT 32 SECONDS (21-34) 06/21/17 22:04 - Additional Findings Additional findings: - Constitutional Appears: No Acute Distress - Head Exam Head Exam: ATRAUMATIC, NORMAL INSPECTION - Eye Exam Eye Exam: EOMI, Normal appearance - ENT Exam ENT Exam: Mucous Membranes Moist - Respiratory Exam Respiratory Exam: Clear to Ausculation Bilateral, NORMAL BREATHING PATTERN. absent: Rales, Rhonchi, Wheezes, Respiratory Distress - Cardiovascular Exam Cardiovascular Exam: REGULAR RHYTHM, +S1, +S2 - GI/Abdominal Exam GI & Abdominal Exam: Soft, Normal Bowel Sounds. absent: Distended, Firm, Tenderness - Extremities Exam Extremities Exam: Normal Inspection. absent: Calf Tenderness, Tenderness - Neurological Exam Neurological Exam: Alert, Awake, Oriented x3 - Psychiatric Exam Psychiatric exam: Normal Affect, Normal Mood - Skin Skin Exam: Dry, Intact, Normal Color, Warm Assessment and Plan (1) Dementia Status: Chronic (2) HTN (hypertension) Status: Chronic - Assessment and Plan (Free Text) Plan: (1) Dementia Medications: * Aricpet 10mg * Namenda 10mg bid 1:1 observation From previous admission: * CT scan of the head is negative * X-ray shows a apical granuloma * CT scan of the chest is negative and unremarkable * UDS is negative * RPR and HIV negative * UA: urine only + for ketones * Brain MRI: Limited motion degraded study. No evidence of acute hemorrhage or infarct. Minor chronic white matter ischemic changes are felt be present. Moderate generalized volume loss. (2) HTN (hypertension) - Continue home Cozaar 25mg (3) Prophylaxis - Pepcid 20mg - Heparin 5000 units sc q8h - SCDs Disposition: Pending approval to assisted living <Gary Damon - Last Filed: 06/25/17 21:30> Objective - Vital Signs/Intake and Output Vital Signs (last 24 hours): Temp Pulse Resp BP Pulse Ox 97.8 F 73 18 118/64 97 06/25/17 15:51 06/25/17 15:51 06/25/17 15:51 06/25/17 15:51 06/25/17 15:51 Intake and Output: 06/25/17 06/26/17 18:59 06:59 Intake Total 480 Balance 480 - Medications Medications: Current Medications Donepezil HCl (Aricept) 10 mg PO HS [facility] Last Admin: 06/25/17 21:06 Dose: 10 mg Famotidine (Pepcid) 20 mg PO DAILY [facility] Last Admin: 06/25/17 09:34 Dose: 20 mg Losartan Potassium (Cozaar) 25 mg PO DAILY [facility] Last Admin: 06/25/17 09:34 Dose: 25 mg Memantine (Namenda) 10 mg PO BID [facility] Last Admin: 06/25/17 17:54 Dose: 10 mg - Labs Labs: 06/23/17 08:34 06/23/17 08:34 PT 11.8 SECONDS (9.7-12.2) 06/21/17 22:04 INR 1.1 06/21/17 22:04 APTT 32 SECONDS (21-34) 06/21/17 22:04 Attending/Attestation - Attestation I have personally seen and examined this patient.: Yes I have fully participated in the care of the patient.: Yes I have reviewed all pertinent clinical information, including history, physical exam and plan: Yes Notes (Text): 06/25/17 21:26 Patient was seen and examined at 1:15 PM 06/25/17 559 A Exam, Assessment and Plan were thoroughly gone over with the Resident. Assessments: 1). Dimentia: Aricept, Namenda, Folic Acid, Crestor 2). Anemia: stable 3). Hypokalemia: stable 4). Abnormal Chest X Ray (Granuloma?): CT Chest was unremarkable 5). Impaired Fasting Glucose: HgBA1C was 5.7 6). HTN: Cozaar, ASA 7). Prophylaxis: Pepcid, Heparin, 1:1 observation for elopement risk I spoke with Supervisor Metal Furniture Fabrication Najma and Dialysis Biomed Technician Pina: awaiting [facility] approval. Gary Damon D.O.
--- NOTE | 2017-06-26 10:42 | CP.PCM.PN ---
<Vidya Jean-Baptiste - Last Filed: 06/26/17 15:21> Subjective - Date & Time of Evaluation Date of Evaluation: 06/26/17 Time of Evaluation: 10:40 - Subjective Subjective: Medicine Progress Note for Dr. Damon Patient was seen and examined at bedside. Patient sitting comfortably in bed. Patient is tolerating diet, ambulating without difficulty and reports having normal bowel movements. Patient states he wants to shave his miller because its bothering him. ROS otherwise negative. Objective - Vital Signs/Intake and Output Vital Signs (last 24 hours): Temp Pulse Resp BP Pulse Ox 98.3 F 87 20 116/85 99 06/26/17 07:09 06/26/17 07:09 06/26/17 07:09 06/26/17 07:09 06/26/17 07:09 Intake and Output: 06/26/17 06/26/17 06:59 18:59 Intake Total 800 Balance 800 - Medications Medications: Current Medications Donepezil HCl (Aricept) 10 mg PO HS [facility] Last Admin: 06/25/17 21:06 Dose: 10 mg Famotidine (Pepcid) 20 mg PO DAILY [facility] Last Admin: 06/25/17 09:34 Dose: 20 mg Losartan Potassium (Cozaar) 25 mg PO DAILY [facility] Last Admin: 06/25/17 09:34 Dose: 25 mg Memantine (Namenda) 10 mg PO BID [facility] Last Admin: 06/25/17 17:54 Dose: 10 mg - Labs Labs: 06/23/17 08:34 06/23/17 08:34 PT 11.8 SECONDS (9.7-12.2) 06/21/17 22:04 INR 1.1 06/21/17 22:04 APTT 32 SECONDS (21-34) 06/21/17 22:04 - Additional Findings Additional findings: - Constitutional Appears: No Acute Distress - Head Exam Head Exam: ATRAUMATIC, NORMAL INSPECTION - Eye Exam Eye Exam: EOMI, Normal appearance - ENT Exam ENT Exam: Mucous Membranes Moist - Respiratory Exam Respiratory Exam: Clear to Ausculation Bilateral, NORMAL BREATHING PATTERN. absent: Rales, Rhonchi, Wheezes, Respiratory Distress - Cardiovascular Exam Cardiovascular Exam: REGULAR RHYTHM, +S1, +S2 - GI/Abdominal Exam GI & Abdominal Exam: Soft, Normal Bowel Sounds. absent: Distended, Firm, Tenderness - Extremities Exam Extremities Exam: Normal Inspection. absent: Calf Tenderness, Tenderness - Neurological Exam Neurological Exam: Alert, Awake, Oriented x3 - Psychiatric Exam Psychiatric exam: Normal Affect, Normal Mood - Skin Skin Exam: Dry, Intact, Normal Color, Warm Assessment and Plan (1) Dementia Status: Chronic (2) HTN (hypertension) Status: Chronic - Assessment and Plan (Free Text) Plan: (1) Dementia Medications: * Aricpet 10mg * Namenda 10mg bid 1:1 observation From previous admission: * CT scan of the head is negative * X-ray shows a apical granuloma * CT scan of the chest is negative and unremarkable * UDS is negative * RPR and HIV negative * UA: urine only + for ketones * Brain MRI: Limited motion degraded study. No evidence of acute hemorrhage or infarct. Minor chronic white matter ischemic changes are felt be present. Moderate generalized volume loss. (2) HTN (hypertension) - Continue home Cozaar 25mg (3) Prophylaxis - Pepcid 20mg - Heparin 5000 units sc q8h - SCDs Disposition: Patient was denied for placement at [facility]. Pending approval for [facility] assisted living facility in [place]. Spoke with outpatient case manager, Najma, who applied patient for guardianship with Adult Protective Services of [facility]. <Gary Damon - Last Filed: 06/26/17 19:16> Objective - Vital Signs/Intake and Output Vital Signs (last 24 hours): Temp Pulse Resp BP Pulse Ox 98.3 F 77 20 112/76 99 06/26/17 07:09 06/26/17 11:08 06/26/17 07:09 06/26/17 11:08 06/26/17 07:09 Intake and Output: 06/26/17 06/27/17 18:59 06:59 Intake Total 870 Balance 870 - Medications Medications: Current Medications Donepezil HCl (Aricept) 10 mg PO HS [facility] Last Admin: 06/25/17 21:06 Dose: 10 mg Famotidine (Pepcid) 20 mg PO DAILY [facility] Last Admin: 06/26/17 11:08 Dose: 20 mg Losartan Potassium (Cozaar) 25 mg PO DAILY [facility] Last Admin: 06/26/17 11:09 Dose: 25 mg Memantine (Namenda) 10 mg PO BID [facility] Last Admin: 06/26/17 17:21 Dose: 10 mg - Labs Labs: 06/23/17 08:34 06/23/17 08:34 PT 11.8 SECONDS (9.7-12.2) 06/21/17 22:04 INR 1.1 06/21/17 22:04 APTT 32 SECONDS (21-34) 06/21/17 22:04 Attending/Attestation - Attestation I have personally seen and examined this patient.: Yes I have fully participated in the care of the patient.: Yes I have reviewed all pertinent clinical information, including history, physical exam and plan: Yes Notes (Text): 06/26/17 19:12 Patient was seen and examined at 2:30 PM 06/26/17 559 A Exam, Assessment and Plan were thoroughly gone over with the Resident. Assessments: 1). Dimentia: Aricept, Namenda, Folic Acid, Crestor 2). Anemia: stable 3). Hypokalemia: stable 4). Abnormal Chest X Ray (Granuloma?): CT Chest was unremarkable 5). Impaired Fasting Glucose: HgBA1C was 5.7 6). HTN: Cozaar, ASA 7). Prophylaxis: Pepcid, Heparin, 1:1 observation for elopement risk I spoke with Gui Developer Najma and Box Folding Machine Operator Pina: [facility] facility did NOT accept patient. [facility] [place] [facility]. Notified by Gui Developer Maria that she was contacted by Adult Protective Services [facility] who have started guardianship process. Gary Damon D.O.
--- NOTE | 2017-06-27 07:26 | CP.PCM.PN ---
<Vidya Jean-Baptiste - Last Filed: 06/27/17 10:58> Subjective - Date & Time of Evaluation Date of Evaluation: 06/27/17 Time of Evaluation: 07:25 - Subjective Subjective: Medicine Progress Note for Dr. Damon Patient was seen and examined at bedside. Patient laying comfortably in bed. Patient is still requesting to shave bear as it is bothering him. ROS otherwise negative. Patient is awaiting approval at assisted living facility. Objective - Vital Signs/Intake and Output Vital Signs (last 24 hours): Temp Pulse Resp BP Pulse Ox 97.5 F L 75 18 112/68 97 06/26/17 23:41 06/26/17 23:41 06/26/17 23:41 06/26/17 23:41 06/26/17 23:41 Intake and Output: 06/27/17 06/27/17 06:59 18:59 Intake Total 1000 Balance 1000 - Medications Medications: Current Medications Donepezil HCl (Aricept) 10 mg PO HS [facility] Last Admin: 06/26/17 21:18 Dose: 10 mg Famotidine (Pepcid) 20 mg PO DAILY [facility] Last Admin: 06/26/17 11:08 Dose: 20 mg Losartan Potassium (Cozaar) 25 mg PO DAILY [facility] Last Admin: 06/26/17 11:09 Dose: 25 mg Memantine (Namenda) 10 mg PO BID [facility] Last Admin: 06/26/17 17:21 Dose: 10 mg - Labs Labs: 06/23/17 08:34 06/23/17 08:34 PT 11.8 SECONDS (9.7-12.2) 06/21/17 22:04 INR 1.1 06/21/17 22:04 APTT 32 SECONDS (21-34) 06/21/17 22:04 - Additional Findings Additional findings: - Additional Findings Additional findings: - Constitutional Appears: No Acute Distress - Head Exam Head Exam: ATRAUMATIC, NORMAL INSPECTION - Eye Exam Eye Exam: EOMI, Normal appearance - ENT Exam ENT Exam: Mucous Membranes Moist - Respiratory Exam Respiratory Exam: Clear to Ausculation Bilateral, NORMAL BREATHING PATTERN. absent: Rales, Rhonchi, Wheezes, Respiratory Distress - Cardiovascular Exam Cardiovascular Exam: REGULAR RHYTHM, +S1, +S2 - GI/Abdominal Exam GI & Abdominal Exam: Soft, Normal Bowel Sounds. absent: Distended, Firm, Tenderness - Extremities Exam Extremities Exam: Normal Inspection. absent: Calf Tenderness, Tenderness - Neurological Exam Neurological Exam: Alert, Awake, Oriented x3 - Psychiatric Exam Psychiatric exam: Normal Affect, Normal Mood - Skin Skin Exam: Dry, Intact, Normal Color, Warm Assessment and Plan (1) Dementia Status: Chronic (2) HTN (hypertension) Status: Chronic - Assessment and Plan (Free Text) Plan: (1) Dementia Medications: * Aricpet 10mg * Namenda 10mg bid 1:1 observation From previous admission: * CT scan of the head is negative * X-ray shows a apical granuloma * CT scan of the chest is negative and unremarkable * UDS is negative * RPR and HIV negative * UA: urine only + for ketones * Brain MRI: Limited motion degraded study. No evidence of acute hemorrhage or infarct. Minor chronic white matter ischemic changes are felt be present. Moderate generalized volume loss. (2) HTN (hypertension) - Continue home Cozaar 25mg (3) Prophylaxis - Pepcid 20mg - Heparin 5000 units sc q8h - SCDs Disposition: Patient was denied for placement at [facility]. Pending approval for [facility] assisted living facility in [place]. Spoke with case investigator, Najma, who applied patient for guardianship with Adult Protective Services of [facility]. <Gary Damon - Last Filed: 06/27/17 18:49> Objective - Vital Signs/Intake and Output Vital Signs (last 24 hours): Temp Pulse Resp BP Pulse Ox 97.9 F 74 20 111/66 98 06/27/17 16:42 06/27/17 16:42 06/27/17 16:42 06/27/17 16:42 06/27/17 16:42 Intake and Output: 06/27/17 06/27/17 06:59 18:59 Intake Total 1000 Balance 1000 - Medications Medications: Current Medications Donepezil HCl (Aricept) 10 mg PO HS [facility] Last Admin: 06/26/17 21:18 Dose: 10 mg Famotidine (Pepcid) 20 mg PO DAILY [facility] Last Admin: 06/27/17 10:39 Dose: 20 mg Losartan Potassium (Cozaar) 25 mg PO DAILY [facility] Last Admin: 06/27/17 10:39 Dose: 25 mg Memantine (Namenda) 10 mg PO BID [facility] Last Admin: 06/27/17 17:20 Dose: 10 mg - Labs Labs: 06/23/17 08:34 06/23/17 08:34 PT 11.8 SECONDS (9.7-12.2) 06/21/17 22:04 INR 1.1 06/21/17 22:04 APTT 32 SECONDS (21-34) 06/21/17 22:04 Attending/Attestation - Attestation I have personally seen and examined this patient.: Yes I have fully participated in the care of the patient.: Yes I have reviewed all pertinent clinical information, including history, physical exam and plan: Yes Notes (Text): 06/27/17 18:48 Patient was seen and examined at 9:00 PM 06/27/17 559 A Exam, Assessment and Plan were thoroughly gone over with the Resident. Assessments: 1). Dimentia: Aricept, Namenda, Folic Acid, Crestor 2). Anemia: stable 3). Hypokalemia: stable 4). Abnormal Chest X Ray (Granuloma?): CT Chest was unremarkable 5). Impaired Fasting Glucose: HgBA1C was 5.7 6). HTN: Cozaar, ASA 7). Prophylaxis: Pepcid, Heparin, 1:1 observation for elopement risk I spoke with Pipe Crew Foreman Najma and Placing Judge Pina 06/26/17: [place] assisted living facility did NOT accept patient. Now awaiting [facility] in [place] to accept patient. Notified by Pipe Crew Foreman Maria that she was contacted by Adult Protective Services [facility] who have started guardianship process. Gary Damon D.O.
[2017-06-28 07:01] LABS: BASO % 0.5 % (0.0-2.0); EOS # 0.1 K/uL (0.0-0.7); EOS % 1.4 % (0.0-4.0); LYMPH # 1.3 K/uL (1.0-4.3); LYMPH % 20.1 % (20.0-40.0); MEAN CELL VOLUME 94.4 fL (80.0-94.0); MEAN CORPUSCULAR HEMOGLOBIN 32.5 pg (27.0-31.0); MEAN CORPUSCULAR HGB CONC 34.4 g/dL (33.0-37.0); MONO # 0.6 K/uL (0.0-0.8); MONO % 9.4 % (0.0-10.0); NEUT # 4.6 K/uL (1.8-7.0); NEUT % 68.6 % (50.0-75.0); RBC 4.31 Mil/uL (4.40-5.90); RED CELL DISTRIBUTION WIDTH 12.7 % (11.5-14.5); WHITE BLOOD COUNT 6.7 K/uL (4.8-10.8)
--- NOTE | 2017-06-28 07:11 | CP.PCM.PN ---
Subjective - Date & Time of Evaluation Date of Evaluation: 06/28/17 Time of Evaluation: 07:09 - Subjective Subjective: Medicine Progress Note for Dr. Damon Patient was seen and examined at bedside. Patient laying comfortably in bed. Patient feels well and has no complaints. ROS otherwise negative. Patient is awaiting approval at assisted living facility. Objective - Vital Signs/Intake and Output Vital Signs (last 24 hours): Temp Pulse Resp BP Pulse Ox 97.9 F 74 20 111/66 98 06/27/17 16:42 06/27/17 16:42 06/27/17 16:42 06/27/17 16:42 06/27/17 16:42 Intake and Output: 06/28/17 06/28/17 06:59 18:59 Intake Total 1300 Balance 1300 - Medications Medications: Current Medications Donepezil HCl (Aricept) 10 mg PO HS [facility] Last Admin: 06/27/17 21:10 Dose: 10 mg Famotidine (Pepcid) 20 mg PO DAILY [facility] Last Admin: 06/27/17 10:39 Dose: 20 mg Losartan Potassium (Cozaar) 25 mg PO DAILY [facility] Last Admin: 06/27/17 10:39 Dose: 25 mg Memantine (Namenda) 10 mg PO BID [facility] Last Admin: 06/27/17 17:20 Dose: 10 mg - Labs Labs: 06/28/17 06:49 06/23/17 08:34 PT 11.8 SECONDS (9.7-12.2) 06/21/17 22:04 INR 1.1 06/21/17 22:04 APTT 32 SECONDS (21-34) 06/21/17 22:04 - Additional Findings Additional findings: - Constitutional Appears: No Acute Distress - Head Exam Head Exam: ATRAUMATIC, NORMAL INSPECTION - Eye Exam Eye Exam: EOMI, Normal appearance - ENT Exam ENT Exam: Mucous Membranes Moist - Respiratory Exam Respiratory Exam: Clear to Ausculation Bilateral, NORMAL BREATHING PATTERN. absent: Rales, Rhonchi, Wheezes, Respiratory Distress - Cardiovascular Exam Cardiovascular Exam: REGULAR RHYTHM, +S1, +S2 - GI/Abdominal Exam GI & Abdominal Exam: Soft, Normal Bowel Sounds. absent: Distended, Firm, Tenderness - Extremities Exam Extremities Exam: Normal Inspection. absent: Calf Tenderness, Tenderness - Neurological Exam Neurological Exam: Alert, Awake, Oriented x3 - Psychiatric Exam Psychiatric exam: Normal Affect, Normal Mood - Skin Skin Exam: Dry, Intact, Normal Color, Warm Assessment and Plan (1) Dementia Status: Chronic (2) HTN (hypertension) Status: Chronic - Assessment and Plan (Free Text) Plan: (1) Dementia Medications: * Aricpet 10mg * Namenda 10mg bid 1:1 observation From previous admission: * CT scan of the head is negative * X-ray shows a apical granuloma * CT scan of the chest is negative and unremarkable * UDS is negative * RPR and HIV negative * UA: urine only + for ketones * Brain MRI: Limited motion degraded study. No evidence of acute hemorrhage or infarct. Minor chronic white matter ischemic changes are felt be present. Moderate generalized volume loss. (2) HTN (hypertension) - Continue home Cozaar 25mg (3) Prophylaxis - Pepcid 20mg - Heparin 5000 units sc q8h - SCDs Disposition: Patient was denied for placement at [facility] assisted [facility] facility. Pending approval for [facility] assisted living facility in [place]. Spoke with case work aide, Najma, who applied patient for guardianship with Adult Protective Services of [facility].
[2017-06-28 08:21] LABS: ALB/GLOB RATIO 1.5 (1.0-2.1); ALBUMIN 3.7 g/dL (3.5-5.0); ALT/SGPT 90 U/L (21-72); AST/SGOT 46 U/L (17-59); BLOOD UREA NITROGEN 12 mg/dL (9-20); CALCIUM 8.4 mg/dl (8.6-10.4); GFR AFRICAN-AMERICAN > 60; GFR NON-AFRICAN AMERICAN > 60
--- NOTE | 2017-06-29 09:44 | CP.PCM.PN ---
<Vidya Jean-Baptiste - Last Filed: 06/29/17 15:21> Subjective - Date & Time of Evaluation Date of Evaluation: 06/29/17 Time of Evaluation: 09:43 - Subjective Subjective: Medicine Progress Note for Dr. Damon Patient was seen and examined at bedside in no acute distress. Patient reports he feels well and is happy because he was able to shave his face. Patient states he is tolerating his diet well and has normal bowel movements. 12-point review of systems otherwise negative. Objective - Vital Signs/Intake and Output Vital Signs (last 24 hours): Temp Pulse Resp BP Pulse Ox 98 F 84 20 119/76 97 06/29/17 08:19 06/29/17 08:19 06/29/17 08:19 06/29/17 08:19 06/29/17 08:19 Intake and Output: 06/29/17 06/29/17 06:59 18:59 Intake Total 120 Balance 120 - Medications Medications: Current Medications Donepezil HCl (Aricept) 10 mg PO HS [facility] Last Admin: 06/28/17 21:28 Dose: 10 mg Famotidine (Pepcid) 20 mg PO DAILY [facility] Last Admin: 06/28/17 10:07 Dose: 20 mg Heparin Sodium (Porcine) (Heparin) 5,000 units SC Q8 [facility] Losartan Potassium (Cozaar) 25 mg PO DAILY [facility] Last Admin: 06/28/17 10:07 Dose: 25 mg Memantine (Namenda) 10 mg PO BID [facility] Last Admin: 06/28/17 17:27 Dose: 10 mg - Labs Labs: 06/28/17 06:49 06/28/17 06:49 PT 11.8 SECONDS (9.7-12.2) 06/21/17 22:04 INR 1.1 06/21/17 22:04 APTT 32 SECONDS (21-34) 06/21/17 22:04 - Additional Findings Additional findings: - Constitutional Appears: No Acute Distress - Head Exam Head Exam: ATRAUMATIC, NORMAL INSPECTION - Eye Exam Eye Exam: EOMI, Normal appearance - ENT Exam ENT Exam: Mucous Membranes Moist - Respiratory Exam Respiratory Exam: Clear to Ausculation Bilateral, NORMAL BREATHING PATTERN. absent: Rales, Rhonchi, Wheezes, Respiratory Distress - Cardiovascular Exam Cardiovascular Exam: REGULAR RHYTHM, +S1, +S2 - GI/Abdominal Exam GI & Abdominal Exam: Soft, Normal Bowel Sounds. absent: Distended, Firm, Tenderness - Extremities Exam Extremities Exam: Normal Inspection. absent: Calf Tenderness, Tenderness - Neurological Exam Neurological Exam: Alert, Awake, Oriented x3 - Psychiatric Exam Psychiatric exam: Normal Affect, Normal Mood - Skin Skin Exam: Dry, Intact, Normal Color, Warm Assessment and Plan (1) Dementia Status: Chronic (2) HTN (hypertension) Status: Chronic - Assessment and Plan (Free Text) Plan: (1) Dementia Medications: * Aricpet 10mg * Namenda 10mg bid 1:1 observation From previous admission: * CT scan of the head is negative * X-ray shows a apical granuloma * CT scan of the chest is negative and unremarkable * UDS is negative * RPR and HIV negative * UA: urine only + for ketones * Brain MRI: Limited motion degraded study. No evidence of acute hemorrhage or infarct. Minor chronic white matter ischemic changes are felt be present. Moderate generalized volume loss. (2) HTN (hypertension) - Continue home Cozaar 25mg (3) Prophylaxis - Pepcid 20mg - Heparin 5000 units sc q8h - SCDs Disposition: Patient was denied for placement at [facility]. Pending approval for [facility] assisted living facility in [place]. Spoke with correctional casework specialist, Najma, who applied patient for guardianship with Adult Protective Services of [facility] <Gary Damon - Last Filed: 06/29/17 19:35> Objective - Vital Signs/Intake and Output Vital Signs (last 24 hours): Temp Pulse Resp BP Pulse Ox 97.4 F L 75 20 115/65 98 06/29/17 16:00 06/29/17 16:00 06/29/17 16:00 06/29/17 16:00 06/29/17 16:00 - Medications Medications: Current Medications Donepezil HCl (Aricept) 10 mg PO HS [facility] Last Admin: 06/28/17 21:28 Dose: 10 mg Famotidine (Pepcid) 20 mg PO DAILY [facility] Last Admin: 06/29/17 10:31 Dose: 20 mg Heparin Sodium (Porcine) (Heparin) 5,000 units SC Q8 [facility] Last Admin: 06/29/17 13:52 Dose: 5,000 units Losartan Potassium (Cozaar) 25 mg PO DAILY [facility] Last Admin: 06/29/17 10:31 Dose: 25 mg Memantine (Namenda) 10 mg PO BID [facility] Last Admin: 06/29/17 17:07 Dose: 10 mg - Labs Labs: 06/28/17 06:49 06/28/17 06:49 PT 11.8 SECONDS (9.7-12.2) 06/21/17 22:04 INR 1.1 06/21/17 22:04 APTT 32 SECONDS (21-34) 06/21/17 22:04 Attending/Attestation - Attestation I have personally seen and examined this patient.: Yes I have fully participated in the care of the patient.: Yes I have reviewed all pertinent clinical information, including history, physical exam and plan: Yes Notes (Text): 06/29/17 19:34 Patient was seen and examined at 9:30 PM 06/29/17 559 A Exam, Assessment and Plan were thoroughly gone over with the Resident. Assessments: 1). Dimentia: Aricept, Namenda, Folic Acid, Crestor 2). Anemia: stable 3). Hypokalemia: stable 4). Abnormal Chest X Ray (Granuloma?): CT Chest was unremarkable 5). Impaired Fasting Glucose: HgBA1C was 5.7 6). HTN: Cozaar, ASA 7). Prophylaxis: Pepcid, SCD,Heparin, 1:1 observation for elopement risk I spoke with Textile Conversion Manager Najma and Sales And Service Representative Pina on 06/26/17: [facility] assisted living facility did NOT accept patient. Now awaiting [facility] in [place] to accept patient. Notified by Textile Conversion Manager Maria that she was contacted by Adult Protective Services [facility] who have started guardianship process. Gary Damon D.O.
--- NOTE | 2017-06-30 05:21 | CP.PCM.PN ---
<MarceloHarriett - Last Filed: 06/30/17 05:21> Subjective - Date & Time of Evaluation Date of Evaluation: 06/30/17 Time of Evaluation: 05:19 - Subjective Subjective: Progress Note for Dr. Damon Patient seen and examined at bedside. No acute events overnight. Patient denies fever, chills, nausea, vomiting. Objective - Vital Signs/Intake and Output Vital Signs (last 24 hours): Temp Pulse Resp BP Pulse Ox 97.7 F 79 20 113/72 98 06/30/17 00:00 06/30/17 00:00 06/30/17 00:00 06/30/17 00:00 06/30/17 00:00 Intake and Output: 06/29/17 06/30/17 18:59 06:59 Intake Total 500 Balance 500 - Medications Medications: Current Medications Donepezil HCl (Aricept) 10 mg PO HS [facility] Last Admin: 06/29/17 21:05 Dose: 10 mg Famotidine (Pepcid) 20 mg PO DAILY [facility] Last Admin: 06/29/17 10:31 Dose: 20 mg Heparin Sodium (Porcine) (Heparin) 5,000 units SC Q8 [facility] Last Admin: 06/29/17 21:05 Dose: 5,000 units Losartan Potassium (Cozaar) 25 mg PO DAILY [facility] Last Admin: 06/29/17 10:31 Dose: 25 mg Memantine (Namenda) 10 mg PO BID [facility] Last Admin: 06/29/17 17:07 Dose: 10 mg - Labs Labs: 06/28/17 06:49 06/28/17 06:49 PT 11.8 SECONDS (9.7-12.2) 06/21/17 22:04 INR 1.1 06/21/17 22:04 APTT 32 SECONDS (21-34) 06/21/17 22:04 - Constitutional Appears: Non-toxic - Head Exam Head Exam: NORMAL INSPECTION - Eye Exam Eye Exam: EOMI, Normal appearance - ENT Exam ENT Exam: Mucous Membranes Moist - Neck Exam Neck Exam: Full ROM - Respiratory Exam Respiratory Exam: Clear to Ausculation Bilateral. absent: Accessory Muscle Use , Decreased Breath Sounds - Cardiovascular Exam Cardiovascular Exam: REGULAR RHYTHM, +S1, +S2 - GI/Abdominal Exam GI & Abdominal Exam: Soft, Normal Bowel Sounds. absent: Tenderness - Extremities Exam Extremities Exam: Full ROM. absent: Pedal Edema - Neurological Exam Neurological Exam: Alert, Awake - Psychiatric Exam Psychiatric exam: Normal Affect, Normal Mood - Skin Skin Exam: Dry, Intact Assessment and Plan - Assessment and Plan (Free Text) Assessment: (1) Dementia Medications: * Aricpet 10mg * Namenda 10mg bid 1:1 observation From previous admission: * CT scan of the head is negative * X-ray shows a apical granuloma * CT scan of the chest is negative and unremarkable * UDS is negative * RPR and HIV negative * UA: urine only + for ketones * Brain MRI: Limited motion degraded study. No evidence of acute hemorrhage or infarct. Minor chronic white matter ischemic changes are felt be present. Moderate generalized volume loss. (2) HTN (hypertension) - Continue home Cozaar 25mg (3) Prophylaxis - Pepcid 20mg - Heparin 5000 units sc q8h - SCDs Disposition: Patient was denied for placement at [facility]. Pending approval for [facility] assisted living facility in [place]. Spoke with window caser, Najma, who applied patient for guardianship with Adult Protective Services of [facility]. Harriett Robertson DO PGY1 <Gary Damon - Last Filed: 06/30/17 08:56> Objective - Vital Signs/Intake and Output Vital Signs (last 24 hours): Temp Pulse Resp BP Pulse Ox 97.2 F L 65 20 110/72 95 06/30/17 08:07 06/30/17 08:07 06/30/17 08:07 06/30/17 08:07 06/30/17 08:07 Intake and Output: 06/30/17 06/30/17 06:59 18:59 Intake Total 500 Balance 500 - Medications Medications: Current Medications Donepezil HCl (Aricept) 10 mg PO HS [facility] Last Admin: 06/29/17 21:05 Dose: 10 mg Famotidine (Pepcid) 20 mg PO DAILY [facility] Last Admin: 06/29/17 10:31 Dose: 20 mg Heparin Sodium (Porcine) (Heparin) 5,000 units SC Q8 [facility] Last Admin: 06/30/17 06:18 Dose: 5,000 units Losartan Potassium (Cozaar) 25 mg PO DAILY [facility] Last Admin: 06/29/17 10:31 Dose: 25 mg Memantine (Namenda) 10 mg PO BID [facility] Last Admin: 06/29/17 17:07 Dose: 10 mg - Labs Labs: 06/28/17 06:49 06/28/17 06:49 PT 11.8 SECONDS (9.7-12.2) 06/21/17 22:04 INR 1.1 06/21/17 22:04 APTT 32 SECONDS (21-34) 06/21/17 22:04 Attending/Attestation - Attestation I have personally seen and examined this patient.: Yes I have fully participated in the care of the patient.: Yes I have reviewed all pertinent clinical information, including history, physical exam and plan: Yes Notes (Text): 06/30/17 08:55 Patient was seen and examined at 8:45 AM 06/30/17 559 A Exam, Assessment and Plan were thoroughly gone over with the Resident. Assessments: 1). Dimentia: Aricept, Namenda, Folic Acid, Crestor 2). Anemia: stable 3). Hypokalemia: stable 4). Abnormal Chest X Ray (Granuloma?): CT Chest was unremarkable 5). Impaired Fasting Glucose: HgBA1C was 5.7 6). HTN: Cozaar, ASA 7). Prophylaxis: Pepcid, SCD,Heparin, 1:1 observation for elopement risk I spoke with Swimming Pool Salesperson Najma and Hemmer Chainstitch Pina on 06/26/17: [facility] assisted living facility did NOT accept patient. Now awaiting [facility] in [place] to accept patient. Notified by Swimming Pool Salesperson Maria that she was contacted by Adult Protective Services [facility] who have started guardianship process. Gary Damon D.O.
--- NOTE | 2017-07-01 07:14 | CP.PCM.PN ---
<Harriett Robertson - Last Filed: 07/01/17 07:11> Subjective - Date & Time of Evaluation Date of Evaluation: 07/01/17 Time of Evaluation: 07:13 - Subjective Subjective: Progress Note Patient seen and examined at bedside. No acute events overnight. Patient denies fever, chills, nausea, vomiting, constipation, diarrhea. Patient is aware we are awaiting placement for patient to be discharged. Objective - Vital Signs/Intake and Output Vital Signs (last 24 hours): Temp Pulse Resp BP Pulse Ox 97.7 F 78 20 118/77 98 06/30/17 23:15 06/30/17 23:15 06/30/17 23:15 06/30/17 23:15 06/30/17 23:15 Intake and Output: 07/01/17 07/01/17 06:59 18:59 Intake Total 600 Balance 600 - Medications Medications: Current Medications Donepezil HCl (Aricept) 10 mg PO HS [facility] Last Admin: 06/30/17 21:37 Dose: 10 mg Famotidine (Pepcid) 20 mg PO DAILY [facility] Last Admin: 06/30/17 09:06 Dose: 20 mg Heparin Sodium (Porcine) (Heparin) 5,000 units SC Q8 [facility] Last Admin: 07/01/17 05:42 Dose: 5,000 units Losartan Potassium (Cozaar) 25 mg PO DAILY [facility] Last Admin: 06/30/17 09:06 Dose: 25 mg Memantine (Namenda) 10 mg PO BID [facility] Last Admin: 06/30/17 17:10 Dose: 10 mg - Labs Labs: 06/28/17 06:49 06/28/17 06:49 PT 11.8 SECONDS (9.7-12.2) 06/21/17 22:04 INR 1.1 06/21/17 22:04 APTT 32 SECONDS (21-34) 06/21/17 22:04 - Constitutional Appears: Non-toxic - Head Exam Head Exam: NORMAL INSPECTION - Eye Exam Eye Exam: EOMI, Normal appearance - ENT Exam ENT Exam: Mucous Membranes Moist - Neck Exam Neck Exam: Full ROM - Respiratory Exam Respiratory Exam: NORMAL BREATHING PATTERN. absent: Accessory Muscle Use - Cardiovascular Exam Cardiovascular Exam: REGULAR RHYTHM, +S1, +S2 - GI/Abdominal Exam GI & Abdominal Exam: Soft. absent: Tenderness - Extremities Exam Extremities Exam: Full ROM. absent: Pedal Edema - Neurological Exam Neurological Exam: Alert, Awake - Psychiatric Exam Psychiatric exam: Normal Affect, Normal Mood - Skin Skin Exam: Dry, Intact, Pallor Assessment and Plan - Assessment and Plan (Free Text) Assessment: (1) Dementia Medications: * Aricpet 10mg * Namenda 10mg bid * Folic Acid * Crestor 1:1 observation for elopment From previous admission: * CT scan of the head is negative * X-ray shows a possible apical granuloma * CT scan of the chest is negative and unremarkable * UDS is negative * RPR and HIV negative * UA: urine only + for ketones * Brain MRI: Limited motion degraded study. No evidence of acute hemorrhage or infarct. Minor chronic white matter ischemic changes are felt be present. Moderate generalized volume loss. (2) HTN (hypertension) - Continue home Cozaar 25mg (3) Prophylaxis - Pepcid 20mg - Heparin 5000 units sc q8h - SCDs Disposition: Patient was denied for placement at [facility]. Pending approval for [facility] assisted living facility in [place]. Spoke with correctional case manager, Najma, who applied patient for guardianship with Adult Protective Services of [facility]. Harriett Robertson DO PGY1 <Gary Damon - Last Filed: 07/01/17 14:35> Objective - Vital Signs/Intake and Output Vital Signs (last 24 hours): Temp Pulse Resp BP Pulse Ox 97.9 F 72 20 115/72 97 07/01/17 09:09 07/01/17 09:09 07/01/17 09:09 07/01/17 09:09 07/01/17 09:09 Intake and Output: 07/01/17 07/01/17 06:59 18:59 Intake Total 600 480 Balance 600 480 - Medications Medications: Current Medications Donepezil HCl (Aricept) 10 mg PO HS [facility] Last Admin: 06/30/17 21:37 Dose: 10 mg Famotidine (Pepcid) 20 mg PO DAILY [facility] Last Admin: 07/01/17 08:59 Dose: 20 mg Heparin Sodium (Porcine) (Heparin) 5,000 units SC Q8 [facility] Last Admin: 07/01/17 13:03 Dose: 5,000 units Losartan Potassium (Cozaar) 25 mg PO DAILY [facility] Last Admin: 07/01/17 08:59 Dose: 25 mg Memantine (Namenda) 10 mg PO BID [facility] Last Admin: 07/01/17 08:59 Dose: 10 mg - Labs Labs: 06/28/17 06:49 06/28/17 06:49 PT 11.8 SECONDS (9.7-12.2) 06/21/17 22:04 INR 1.1 06/21/17 22:04 APTT 32 SECONDS (21-34) 06/21/17 22:04 Attending/Attestation - Attestation I have personally seen and examined this patient.: Yes I have fully participated in the care of the patient.: Yes I have reviewed all pertinent clinical information, including history, physical exam and plan: Yes Notes (Text): 07/01/17 14:34 Patient was seen and examined at 2:35 PM 07/01/17 559 A Exam, Assessment and Plan were thoroughly gone over with the Resident. Assessments: 1). Dimentia: Aricept, Namenda, Folic Acid, Crestor 2). Anemia: stable 3). Hypokalemia: stable 4). Abnormal Chest X Ray (Granuloma?): CT Chest was unremarkable 5). Impaired Fasting Glucose: HgBA1C was 5.7 6). HTN: Cozaar, ASA 7). Prophylaxis: Pepcid, SCD,Heparin, 1:1 observation for elopement risk I spoke with Bundle Shaker Najma and Food Technician Pina on 06/26/17: [facility] assisted living facility did NOT accept patient. Now awaiting [facility] in [place] to accept patient. Notified by Bundle Shaker Maria that she was contacted by Adult Protective Services [facility] who have started guardianship process. Gary Damon D.O.
--- NOTE | 2017-07-02 06:56 | CP.PCM.PN ---
<Vidya Jean-Baptiste - Last Filed: 07/02/17 11:26> Subjective - Date & Time of Evaluation Date of Evaluation: 07/02/17 Time of Evaluation: 06:56 - Subjective Subjective: Medicine Progress Note for Dr. Sawyer Patient was seen and examined at bedside in no acute distress. Patient reports he feels well. Patient states he is tolerating his diet well and has normal bowel movements. 12-point review of systems otherwise negative. Objective - Vital Signs/Intake and Output Vital Signs (last 24 hours): Temp Pulse Resp BP Pulse Ox 98.1 F 68 18 118/71 97 07/01/17 23:00 07/01/17 23:00 07/01/17 23:00 07/01/17 23:00 07/01/17 23:00 Intake and Output: 07/01/17 07/02/17 18:59 06:59 Intake Total 480 500 Balance 480 500 - Medications Medications: Current Medications Donepezil HCl (Aricept) 10 mg PO HS [facility] Last Admin: 07/01/17 21:00 Dose: 10 mg Famotidine (Pepcid) 20 mg PO DAILY [facility] Last Admin: 07/01/17 08:59 Dose: 20 mg Heparin Sodium (Porcine) (Heparin) 5,000 units SC Q8 [facility] Last Admin: 07/02/17 05:14 Dose: 5,000 units Losartan Potassium (Cozaar) 25 mg PO DAILY [facility] Last Admin: 07/01/17 08:59 Dose: 25 mg Memantine (Namenda) 10 mg PO BID [facility] Last Admin: 07/01/17 17:12 Dose: 10 mg - Labs Labs: 06/28/17 06:49 06/28/17 06:49 PT 11.8 SECONDS (9.7-12.2) 06/21/17 22:04 INR 1.1 06/21/17 22:04 APTT 32 SECONDS (21-34) 06/21/17 22:04 - Additional Findings Additional findings: - Constitutional Appears: No Acute Distress - Head Exam Head Exam: ATRAUMATIC, NORMAL INSPECTION - Eye Exam Eye Exam: EOMI, Normal appearance - ENT Exam ENT Exam: Mucous Membranes Moist - Respiratory Exam Respiratory Exam: Clear to Ausculation Bilateral, NORMAL BREATHING PATTERN. absent: Rales, Rhonchi, Wheezes, Respiratory Distress - Cardiovascular Exam Cardiovascular Exam: REGULAR RHYTHM, +S1, +S2 - GI/Abdominal Exam GI & Abdominal Exam: Soft, Normal Bowel Sounds. absent: Distended, Firm, Tenderness - Extremities Exam Extremities Exam: Normal Inspection. absent: Calf Tenderness, Tenderness - Neurological Exam Neurological Exam: Alert, Awake, Oriented x3 - Psychiatric Exam Psychiatric exam: Normal Affect, Normal Mood - Skin Skin Exam: Dry, Intact, Normal Color, Warm Assessment and Plan (1) Dementia Status: Chronic (2) HTN (hypertension) Status: Chronic - Assessment and Plan (Free Text) Plan: (1) Dementia Medications: * Aricpet 10mg * Namenda 10mg bid 1:1 observation From previous admission: * CT scan of the head is negative * X-ray shows a apical granuloma * CT scan of the chest is negative and unremarkable * UDS is negative * RPR and HIV negative * UA: urine only + for ketones * Brain MRI: Limited motion degraded study. No evidence of acute hemorrhage or infarct. Minor chronic white matter ischemic changes are felt be present. Moderate generalized volume loss. (2) HTN (hypertension) - Continue home Cozaar 25mg (3) Prophylaxis - Pepcid 20mg - Heparin 5000 units sc q8h - SCDs Disposition: Patient was denied for placement at [facility]. Pending approval for [facility] assisted living facility in [place]. Spoke with rn case manager hospice, Najma, who applied patient for guardianship with Adult Protective Services of [facility]. <Tamera Sawyer V - Last Filed: 07/02/17 18:08> Objective - Vital Signs/Intake and Output Vital Signs (last 24 hours): Temp Pulse Resp BP Pulse Ox 97.5 F L 62 20 115/72 100 07/02/17 15:28 07/02/17 15:28 07/02/17 15:28 07/02/17 15:28 07/02/17 15:28 Intake and Output: 07/02/17 07/02/17 06:59 18:59 Intake Total 500 870 Balance 500 870 - Medications Medications: Current Medications Donepezil HCl (Aricept) 10 mg PO HS [facility] Last Admin: 07/01/17 21:00 Dose: 10 mg Famotidine (Pepcid) 20 mg PO DAILY [facility] Last Admin: 07/02/17 10:02 Dose: 20 mg Losartan Potassium (Cozaar) 25 mg PO DAILY [facility] Last Admin: 07/02/17 10:02 Dose: 25 mg Memantine (Namenda) 10 mg PO BID [facility] Last Admin: 07/02/17 17:08 Dose: 10 mg - Labs Labs: 06/28/17 06:49 06/28/17 06:49 PT 11.8 SECONDS (9.7-12.2) 06/21/17 22:04 INR 1.1 06/21/17 22:04 APTT 32 SECONDS (21-34) 06/21/17 22:04 Attending/Attestation - Attestation I have personally seen and examined this patient.: Yes I have fully participated in the care of the patient.: Yes I have reviewed all pertinent clinical information, including history, physical exam and plan: Yes Notes (Text): Patient seen, examined and case discussed with day-time resident. Patient is awake, alert, oriented X3. patient able to identify the President is Trump. Patient denies acute complaints. Patient is eating and tolerating diet. patient remains in 1:1 room. Assessment/Plan 1.) Alzheimer's Disease * Family Hx: patient had Alzheimer's Disease at age 71 * Patient was told by a neurologist he has early signs of dementia * Psych consult Dr. Valente --> help appreciated * CT scan of the head is negative * X-ray shows a apical granuloma * CT scan of the chest is negative and unremarkable * UDS is negative * RPR and HIV negative * UA: urine only + for ketones * Brain MRI: Limited motion degraded study. No evidence of acute hemorrhage or infarct. Minor chronic white matter ischemic changes are felt be present. Moderate generalized volume loss. * RPR: nonreactive * HIV: negative * TSH: within normal * Folate: normal * B12: normal * Recommended to patient to follow-up with neurology outpatient and to establish care in the [facility] upon discharge Medications: * Aricept 10mg PO qHS * Namenda 10mg bid * Folic acid 1mg PO daily * Crestor 2.5mg PO HS 2.) Anemia * H/H: 11.3/33.0 * Monitor 3.) Hypokalemia * resolved 4) Abnormal Chest xray * CT Chest: no acute pathology noted; official report in the computer 5.) Impaired glucose tolerance * Hgba1c: 5.7 * Will need check in one year for a1c to prevent over diabetes 6.) HTN * continue home Cozaar 25mg PO daily * Aspirin 81mg PO daily 7.) Prophylaxis * Pepcid 20mg PO BID * Heparin 5000 units sc q8h * SCDs Disposition: pending approval to assisted living facility called [facility]--per latest case management note.
--- NOTE | 2017-07-03 06:54 | CP.PCM.PN ---
<Vidya Jean-Baptiste - Last Filed: 07/03/17 16:34> Subjective - Date & Time of Evaluation Date of Evaluation: 07/03/17 Time of Evaluation: 06:53 - Subjective Subjective: Medicine Progress Note for Dr. Sawyer Patient was seen and examined at bedside in no acute distress. Pateint was laying comfortably in bed. Patient has no complaints and no acute events over night. Patient denies chest pain, abdominal pain, shortness of breath, nausea, vomiting, and fevers. Objective - Vital Signs/Intake and Output Vital Signs (last 24 hours): Temp Pulse Resp BP Pulse Ox 97.9 F 79 20 106/64 97 07/03/17 00:00 07/03/17 00:00 07/03/17 00:00 07/03/17 00:00 07/03/17 00:00 Intake and Output: 07/02/17 07/03/17 18:59 06:59 Intake Total 870 600 Balance 870 600 - Medications Medications: Current Medications Donepezil HCl (Aricept) 10 mg PO HS [facility] Last Admin: 07/02/17 21:07 Dose: 10 mg Famotidine (Pepcid) 20 mg PO DAILY [facility] Last Admin: 07/02/17 10:02 Dose: 20 mg Losartan Potassium (Cozaar) 25 mg PO DAILY [facility] Last Admin: 07/02/17 10:02 Dose: 25 mg Memantine (Namenda) 10 mg PO BID [facility] Last Admin: 07/02/17 17:08 Dose: 10 mg - Labs Labs: 06/28/17 06:49 06/28/17 06:49 PT 11.8 SECONDS (9.7-12.2) 06/21/17 22:04 INR 1.1 06/21/17 22:04 APTT 32 SECONDS (21-34) 06/21/17 22:04 - Additional Findings Additional findings: - Constitutional Appears: No Acute Distress - Head Exam Head Exam: ATRAUMATIC, NORMAL INSPECTION - Eye Exam Eye Exam: EOMI, Normal appearance - ENT Exam ENT Exam: Mucous Membranes Moist - Respiratory Exam Respiratory Exam: Clear to Ausculation Bilateral, NORMAL BREATHING PATTERN. absent: Rales, Rhonchi, Wheezes, Respiratory Distress - Cardiovascular Exam Cardiovascular Exam: REGULAR RHYTHM, +S1, +S2 - GI/Abdominal Exam GI & Abdominal Exam: Soft, Normal Bowel Sounds. absent: Distended, Firm, Tenderness - Extremities Exam Extremities Exam: Normal Inspection. absent: Calf Tenderness, Tenderness - Neurological Exam Neurological Exam: Alert, Awake, Oriented x3 - Psychiatric Exam Psychiatric exam: Normal Affect, Normal Mood - Skin Skin Exam: Dry, Intact, Normal Color, Warm Assessment and Plan (1) Dementia Status: Chronic (2) HTN (hypertension) Status: Chronic - Assessment and Plan (Free Text) Plan: (1) Dementia Medications: * Aricpet 10mg * Namenda 10mg bid 1:1 observation From previous admission: * CT scan of the head is negative * X-ray shows a apical granuloma * CT scan of the chest is negative and unremarkable * UDS is negative * RPR and HIV negative * UA: urine only + for ketones * Brain MRI: Limited motion degraded study. No evidence of acute hemorrhage or infarct. Minor chronic white matter ischemic changes are felt be present. Moderate generalized volume loss. (2) HTN (hypertension) - Continue home Cozaar 25mg (3) Prophylaxis - Pepcid 20mg - Heparin 5000 units sc q8h - SCDs Disposition: Patient was denied for placement at [facility] assisted living facility. Pending approval for [facility] assisted living facility in [place]. Spoke with sample case porter, Najma, who applied patient for guardianship with Adult Protective Services of [facility]. <Tamera Sawyer V - Last Filed: 07/03/17 18:05> Objective - Vital Signs/Intake and Output Vital Signs (last 24 hours): Temp Pulse Resp BP Pulse Ox 97.8 F 73 20 109/76 98 07/03/17 15:49 07/03/17 15:49 07/03/17 15:49 07/03/17 15:49 07/03/17 15:49 Intake and Output: 07/03/17 07/03/17 06:59 18:59 Intake Total 600 820 Balance 600 820 - Medications Medications: Current Medications Donepezil HCl (Aricept) 10 mg PO [facility] Last Admin: 07/02/17 21:07 Dose: 10 mg Famotidine (Pepcid) 20 mg PO DAILY [facility] Last Admin: 07/03/17 10:08 Dose: 20 mg Losartan Potassium (Cozaar) 25 mg PO DAILY [facility] Last Admin: 07/03/17 10:08 Dose: 25 mg Memantine (Namenda) 10 mg PO BID [facility] Last Admin: 07/03/17 17:18 Dose: 10 mg - Labs Labs: 06/28/17 06:49 06/28/17 06:49 PT 11.8 SECONDS (9.7-12.2) 06/21/17 22:04 INR 1.1 06/21/17 22:04 APTT 32 SECONDS (21-34) 06/21/17 22:04 Attending/Attestation - Attestation I have personally seen and examined this patient.: Yes I have fully participated in the care of the patient.: Yes I have reviewed all pertinent clinical information, including history, physical exam and plan: Yes Notes (Text): Patient seen, examined and case discussed with day-time resident. Patient is awake, alert, oriented, but cannot say date, time, month or recal yesterday holiday. 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 patient able to identify the President is [employer]. Patient denies acute complaints. Patient is eating and tolerating diet. patient remains in 1:1 room. Pending social and case management in regards to guardianship and placement. Assessment/Plan 1.) Alzheimer's Disease * Family Hx: patient had Alzheimer's Disease at age 71 * Patient was told by a neurologist he has early signs of dementia * Psych consult Dr. Valente --> help appreciated * CT scan of the head is negative * X-ray shows a apical granuloma * CT scan of the chest is negative and unremarkable * UDS is negative * RPR and HIV negative * UA: urine only + for ketones * Brain MRI: Limited motion degraded study. No evidence of acute hemorrhage or infarct. Minor chronic white matter ischemic changes are felt be present. Moderate generalized volume loss. * RPR: nonreactive * HIV: negative * TSH: within normal * Folate: normal * B12: normal * Recommended to patient to follow-up with neurology outpatient and to establish care in the [facility] upon discharge Medications: * Aricept 10mg PO qHS * Namenda 10mg bid * Folic acid 1mg PO daily * Crestor 2.5mg PO HS 2.) Anemia * H/H: 11.3/33.0 * Monitor 3.) Hypokalemia * resolved 4) Abnormal Chest xray * CT Chest: no acute pathology noted; official report in the computer 5.) Impaired glucose tolerance * Hgba1c: 5.7 * Will need check in one year for a1c to prevent over diabetes 6.) HTN * continue home Cozaar 25mg PO daily * Aspirin 81mg PO daily 7.) Prophylaxis * Pepcid 20mg PO BID * Heparin 5000 units sc q8h * SCDs Disposition: pending approval to assisted living facility called [facility] and following temporary guardianship--per latest case management note.
--- NOTE | 2017-07-04 06:55 | CP.PCM.PN ---
<Vidya Jean-Baptiste - Last Filed: 07/04/17 11:15> Subjective - Date & Time of Evaluation Date of Evaluation: 07/04/17 Time of Evaluation: 06:55 - Subjective Subjective: Medicine Progress Note for Dr. Sawyer Patient was seen and examined at bedside in no acute distress. Patient was laying comfortably in bed. Patient has no complaints and no acute events over night. Patient is oriented to person, but not time (although, patient does know who the president is) or place. Patient denies chest pain, abdominal pain, shortness of breath, nausea, vomiting, and fevers. Objective - Vital Signs/Intake and Output Vital Signs (last 24 hours): Temp Pulse Resp BP Pulse Ox 98.1 F 61 20 114/74 97 07/03/17 23:00 07/03/17 23:00 07/03/17 23:00 07/03/17 23:00 07/03/17 23:00 Intake and Output: 07/03/17 07/04/17 18:59 06:59 Intake Total 820 800 Balance 820 800 - Medications Medications: Current Medications Donepezil HCl (Aricept) 10 mg PO HS [facility] Last Admin: 07/03/17 21:00 Dose: 10 mg Famotidine (Pepcid) 20 mg PO DAILY [facility] Last Admin: 07/03/17 10:08 Dose: 20 mg Losartan Potassium (Cozaar) 25 mg PO DAILY [facility] Last Admin: 07/03/17 10:08 Dose: 25 mg Memantine (Namenda) 10 mg PO BID [facility] Last Admin: 07/03/17 17:18 Dose: 10 mg - Labs Labs: 06/28/17 06:49 06/28/17 06:49 PT 11.8 SECONDS (9.7-12.2) 06/21/17 22:04 INR 1.1 06/21/17 22:04 APTT 32 SECONDS (21-34) 06/21/17 22:04 - Additional Findings Additional findings: - Constitutional Appears: No Acute Distress - Head Exam Head Exam: ATRAUMATIC, NORMAL INSPECTION - Eye Exam Eye Exam: EOMI, Normal appearance - ENT Exam ENT Exam: Mucous Membranes Moist - Respiratory Exam Respiratory Exam: Clear to Ausculation Bilateral, NORMAL BREATHING PATTERN. absent: Rales, Rhonchi, Wheezes, Respiratory Distress - Cardiovascular Exam Cardiovascular Exam: REGULAR RHYTHM, +S1, +S2 - GI/Abdominal Exam GI & Abdominal Exam: Soft, Normal Bowel Sounds. absent: Distended, Firm, Tenderness - Extremities Exam Extremities Exam: Normal Inspection. absent: Calf Tenderness, Tenderness - Neurological Exam Neurological Exam: Alert, Awake, Oriented x3 - Psychiatric Exam Psychiatric exam: Normal Affect, Normal Mood - Skin Skin Exam: Dry, Intact, Normal Color, Warm Assessment and Plan (1) Dementia Status: Chronic (2) HTN (hypertension) Status: Chronic - Assessment and Plan (Free Text) Plan: (1) Dementia Medications: * Aricpet 10mg * Namenda 10mg bid 1:1 observation From previous admission: * CT scan of the head is negative * X-ray shows a apical granuloma * CT scan of the chest is negative and unremarkable * UDS is negative * RPR and HIV negative * UA: urine only + for ketones * Brain MRI: Limited motion degraded study. No evidence of acute hemorrhage or infarct. Minor chronic white matter ischemic changes are felt be present. Moderate generalized volume loss. (2) HTN (hypertension) - Continue home Cozaar 25mg (3) Prophylaxis - Pepcid 20mg - Heparin 5000 units sc q8h - SCDs Disposition: Patient was denied for placement at [place] assisted living facility. Pending approval for [facility] assisted living facility in [place]. Spoke with lead case manager, Najma, who applied patient for guardianship with Adult Protective Services of [facility]. <Tamera Sawyer V - Last Filed: 07/04/17 18:16> Objective - Vital Signs/Intake and Output Vital Signs (last 24 hours): Temp Pulse Resp BP Pulse Ox 97.6 F 74 20 114/81 99 07/04/17 07:00 07/04/17 07:00 07/04/17 07:00 07/04/17 07:00 07/04/17 07:00 Intake and Output: 07/04/17 07/04/17 06:59 18:59 Intake Total 800 Balance 800 - Medications Medications: Current Medications Donepezil HCl (Aricept) 10 mg PO HS [facility] Last Admin: 07/03/17 21:00 Dose: 10 mg Famotidine (Pepcid) 20 mg PO DAILY [facility] Last Admin: 07/04/17 10:12 Dose: 20 mg Losartan Potassium (Cozaar) 25 mg PO DAILY [facility] Last Admin: 07/04/17 10:12 Dose: 25 mg Memantine (Namenda) 10 mg PO BID [facility] Last Admin: 07/04/17 17:02 Dose: 10 mg - Labs Labs: 06/28/17 06:49 06/28/17 06:49 PT 11.8 SECONDS (9.7-12.2) 06/21/17 22:04 INR 1.1 06/21/17 22:04 APTT 32 SECONDS (21-34) 06/21/17 22:04 Attending/Attestation - Attestation I have personally seen and examined this patient.: Yes I have fully participated in the care of the patient.: Yes I have reviewed all pertinent clinical information, including history, physical exam and plan: Yes Notes (Text): Patient seen, examined and case discussed with day-time resident. Patient is awake, alert, oriented to the President only, but cannot say date, time, month or recall yesterday's newspaper headline. holiday. Patient denies acute complaints. Patient is eating and tolerating diet. patient remains in 1:1 room. Pending social and case management in regards to guardianship and placement. Assessment/Plan 1.) Alzheimer's Disease * Family Hx: patient had Alzheimer's Disease at age 71 * Patient was told by a neurologist he has early signs of dementia * Psych consult Dr. Valnete --> help appreciated * CT scan of the head is negative * X-ray shows a apical granuloma * CT scan of the chest is negative and unremarkable * UDS is negative * RPR and HIV negative * UA: urine only + for ketones * Brain MRI: Limited motion degraded study. No evidence of acute hemorrhage or infarct. Minor chronic white matter ischemic changes are felt be present. Moderate generalized volume loss. * RPR: nonreactive * HIV: negative * TSH: within normal * Folate: normal * B12: normal * Recommended to patient to follow-up with neurology outpatient and to establish care in the [email or web address] upon discharge Medications: * Aricept 10mg PO qHS * Namenda 10mg bid * Folic acid 1mg PO daily * Crestor 2.5mg PO HS 2.) Anemia * H/H: 11.3/33.0 * Monitor 3.) Hypokalemia * resolved 4) Abnormal Chest xray * CT Chest: no acute pathology noted; official report in the computer 5.) Impaired glucose tolerance * Hgba1c: 5.7 * Will need check in one year for a1c to prevent over diabetes 6.) HTN * continue home Cozaar 25mg PO daily * Aspirin 81mg PO daily 7.) Prophylaxis * Pepcid 20mg PO BID * Heparin 5000 units sc q8h * SCDs Disposition: pending approval to assisted living facility called [facility] and following temporary guardianship--per latest case management note.
--- NOTE | 2017-07-05 07:39 | CP.PCM.PN ---
<Vidya Jean-Baptiste - Last Filed: 07/05/17 13:16> Subjective - Date & Time of Evaluation Date of Evaluation: 07/05/17 Time of Evaluation: 07:37 - Subjective Subjective: Medicine Progress Note for Dr. Sawyer Patient was seen and examined at bedside in no acute distress. Patient was laying comfortably in bed. Patient has no complaints and no acute events over night. Patient is oriented to person, but not time or place. Patient denies chest pain, abdominal pain, shortness of breath, nausea, vomiting, and fevers. Objective - Vital Signs/Intake and Output Vital Signs (last 24 hours): Temp Pulse Resp BP Pulse Ox 98.2 F 72 20 115/67 98 07/04/17 23:30 07/04/17 23:30 07/04/17 23:30 07/04/17 23:30 07/04/17 23:30 Intake and Output: 07/05/17 07/05/17 06:59 18:59 Intake Total 720 Balance 720 - Medications Medications: Current Medications Donepezil HCl (Aricept) 10 mg PO HS [facility] Last Admin: 07/04/17 21:04 Dose: 10 mg Famotidine (Pepcid) 20 mg PO DAILY [facility] Last Admin: 07/04/17 10:12 Dose: 20 mg Losartan Potassium (Cozaar) 25 mg PO DAILY [facility] Last Admin: 07/04/17 10:12 Dose: 25 mg Memantine (Namenda) 10 mg PO BID [facility] Last Admin: 07/04/17 17:02 Dose: 10 mg - Labs Labs: 06/28/17 06:49 06/28/17 06:49 PT 11.8 SECONDS (9.7-12.2) 06/21/17 22:04 INR 1.1 06/21/17 22:04 APTT 32 SECONDS (21-34) 06/21/17 22:04 - Additional Findings Additional findings: - Constitutional Appears: No Acute Distress - Head Exam Head Exam: ATRAUMATIC, NORMAL INSPECTION - Eye Exam Eye Exam: EOMI, Normal appearance - ENT Exam ENT Exam: Mucous Membranes Moist - Respiratory Exam Respiratory Exam: Clear to Ausculation Bilateral, NORMAL BREATHING PATTERN. absent: Rales, Rhonchi, Wheezes, Respiratory Distress - Cardiovascular Exam Cardiovascular Exam: REGULAR RHYTHM, +S1, +S2 - GI/Abdominal Exam GI & Abdominal Exam: Soft, Normal Bowel Sounds. absent: Distended, Firm, Tenderness - Extremities Exam Extremities Exam: Normal Inspection. absent: Calf Tenderness, Tenderness - Neurological Exam Neurological Exam: Alert, Awake, Oriented x3 - Psychiatric Exam Psychiatric exam: Normal Affect, Normal Mood - Skin Skin Exam: Dry, Intact, Normal Color, Warm Assessment and Plan (1) Dementia Status: Chronic (2) HTN (hypertension) Status: Chronic - Assessment and Plan (Free Text) Plan: (1) Dementia Medications: * Aricpet 10mg * Namenda 10mg bid 1:1 observation From previous admission: * CT scan of the head is negative * X-ray shows a apical granuloma * CT scan of the chest is negative and unremarkable * UDS is negative * RPR and HIV negative * UA: urine only + for ketones * Brain MRI: Limited motion degraded study. No evidence of acute hemorrhage or infarct. Minor chronic white matter ischemic changes are felt be present. Moderate generalized volume loss. (2) HTN (hypertension) - Continue home Cozaar 25mg (3) Prophylaxis - Pepcid 20mg - Heparin 5000 units sc q8h - SCDs Disposition: Patient was denied for placement at [facility] assisted living facility. Pending approval for [facility] assisted living facility in [place]. Spoke with comp field case manager, Najma, who applied patient for guardianship with [facility] of [facility]. <Tamera Sawyer V - Last Filed: 07/08/17 10:45> Objective - Vital Signs/Intake and Output Vital Signs (last 24 hours): Temp Pulse Resp BP Pulse Ox 98.2 F 66 18 118/77 97 07/08/17 08:00 07/08/17 08:00 07/08/17 08:00 07/08/17 08:00 07/08/17 08:00 Intake and Output: 07/08/17 07/08/17 06:59 18:59 Intake Total 600 Balance 600 - Medications Medications: Current Medications Donepezil HCl (Aricept) 10 mg PO HS [facility] Last Admin: 07/07/17 21:24 Dose: 10 mg Famotidine (Pepcid) 20 mg PO DAILY [facility] Last Admin: 07/08/17 09:57 Dose: 20 mg Heparin Sodium (Porcine) (Heparin) 5,000 units SC Q8 [facility] Losartan Potassium (Cozaar) 25 mg PO DAILY [facility] Last Admin: 07/08/17 09:57 Dose: 25 mg Memantine (Namenda) 10 mg PO DAILY [facility] Last Admin: 07/08/17 09:57 Dose: 10 mg - Labs Labs: 06/28/17 06:49 06/28/17 06:49 PT 11.8 SECONDS (9.7-12.2) 06/21/17 22:04 INR 1.1 06/21/17 22:04 APTT 32 SECONDS (21-34) 06/21/17 22:04 Attending/Attestation - Attestation I have personally seen and examined this patient.: Yes I have fully participated in the care of the patient.: Yes I have reviewed all pertinent clinical information, including history, physical exam and plan: Yes Notes (Text): This is a late computer entry for 07/05/17. Patient seen, examined and case discussed with day-time resident. Patient is awake, alert, oriented to the President only, but cannot say date, time, month or recall the most recent holiday that past. Patient denies acute complaints. Patient is eating and tolerating diet. patient remains in 1:1 room. Pending social and case management in regards to guardianship and placement. Neurology consult placed Assessment/Plan 1.) Alzheimer's Disease * Family Hx: patient had Alzheimer's Disease at age 71 * Patient was told by a neurologist he has early signs of dementia * Psych consult Dr. Valente --> help appreciated * CT scan of the head is negative * X-ray shows a apical granuloma * CT scan of the chest is negative and unremarkable * UDS is negative * RPR and HIV negative * UA: urine only + for ketones * Brain MRI: Limited motion degraded study. No evidence of acute hemorrhage or infarct. Minor chronic white matter ischemic changes are felt be present. Moderate generalized volume loss. * RPR: nonreactive * HIV: negative * TSH: within normal * Folate: normal * B12: normal * Recommended to patient to follow-up with neurology outpatient and to establish care in the [facility] upon discharge Medications: * Aricept 10mg PO qHS * Namenda 10mg bid * Folic acid 1mg PO daily * Crestor 2.5mg PO HS 2.) Anemia * H/H: 11.3/33.0 * Monitor 3.) Hypokalemia * resolved 4) Abnormal Chest xray * CT Chest: no acute pathology noted; official report in the computer 5.) Impaired glucose tolerance * Hgba1c: 5.7 * Will need check in one year for a1c to prevent over diabetes 6.) HTN * continue home Cozaar 25mg PO daily * Aspirin 81mg PO daily 7.) Prophylaxis * Pepcid 20mg PO BID * Heparin 5000 units sc q8h * SCDs Disposition: pending approval to assisted living facility called [facility] and following temporary guardianship--per latest case management note.
--- NOTE | 2017-07-06 09:31 | CP.PCM.PN ---
Addendum entered and electronically signed by Harriett Robertson DO 07/06/17 16:32: f/u MRI per Dr. Manzanares Original Note: <Harriett Robetrson - Last Filed: 07/06/17 16:20> Subjective - Date & Time of Evaluation Date of Evaluation: 07/06/17 Time of Evaluation: 09:27 - Subjective Subjective: Progress note for Dr. Sawyer Patient seen and examined at bedside. PAtient able to name the president, is aware that his room assignment changed and was not able to state the date. Patient denies fever, chills, dizziness, constipation, diarrhea. Patient is aware he can walk around the floor with an aid. Objective - Vital Signs/Intake and Output Vital Signs (last 24 hours): Temp Pulse Resp BP Pulse Ox 98.1 F 78 20 114/66 98 07/06/17 07:00 07/06/17 07:00 07/06/17 07:00 07/06/17 07:00 07/06/17 07:00 - Medications Medications: Current Medications Donepezil HCl (Aricept) 10 mg PO HS [facility] Last Admin: 07/05/17 21:38 Dose: 10 mg Famotidine (Pepcid) 20 mg PO DAILY [facility] Last Admin: 07/06/17 09:20 Dose: 20 mg Losartan Potassium (Cozaar) 25 mg PO DAILY [facility] Last Admin: 07/06/17 09:20 Dose: 25 mg Memantine (Namenda) 10 mg PO BID [facility] Last Admin: 07/06/17 09:20 Dose: 10 mg - Labs Labs: 06/28/17 06:49 06/28/17 06:49 PT 11.8 SECONDS (9.7-12.2) 06/21/17 22:04 INR 1.1 06/21/17 22:04 APTT 32 SECONDS (21-34) 06/21/17 22:04 - Constitutional Appears: Non-toxic, No Acute Distress Assessment and Plan - Assessment and Plan (Free Text) Assessment: (1) Dementia Medications: * Aricpet 10mg * Namenda 10mg bid 1:1 observation From previous admission: * CT scan of the head is negative * X-ray shows a apical granuloma * CT scan of the chest is negative and unremarkable * UDS is negative * RPR and HIV negative * UA: urine only + for ketones * Brain MRI: Limited motion degraded study. No evidence of acute hemorrhage or infarct. Minor chronic white matter ischemic changes are felt be present. Moderate generalized volume loss. (2) HTN (hypertension) - Continue home Cozaar 25mg (3) Prophylaxis - Pepcid 20mg - Heparin 5000 units sc q8h - SCDs Disposition: Patient was denied for placement at [facility] assisted [facility]. Pending approval for [facility] assisted living facility in [place]. Spoke with case resolution specialist, Najma, who applied patient for guardianship with [facility] of [facility]. <Tamera Sawyer V - Last Filed: 07/08/17 10:40> Objective - Vital Signs/Intake and Output Vital Signs (last 24 hours): Temp Pulse Resp BP Pulse Ox 98.2 F 66 18 118/77 97 07/08/17 08:00 07/08/17 08:00 07/08/17 08:00 07/08/17 08:00 07/08/17 08:00 Intake and Output: 07/08/17 07/08/17 06:59 18:59 Intake Total 600 Balance 600 - Medications Medications: Current Medications Donepezil HCl (Aricept) 10 mg PO HS [facility] Last Admin: 07/07/17 21:24 Dose: 10 mg Famotidine (Pepcid) 20 mg PO DAILY [facility] Last Admin: 07/08/17 09:57 Dose: 20 mg Heparin Sodium (Porcine) (Heparin) 5,000 units SC Q8 [facility] Losartan Potassium (Cozaar) 25 mg PO DAILY [facility] Last Admin: 07/08/17 09:57 Dose: 25 mg Memantine (Namenda) 10 mg PO DAILY [facility] Last Admin: 07/08/17 09:57 Dose: 10 mg - Labs Labs: 06/28/17 06:49 06/28/17 06:49 PT 11.8 SECONDS (9.7-12.2) 06/21/17 22:04 INR 1.1 06/21/17 22:04 APTT 32 SECONDS (21-34) 06/21/17 22:04 Attending/Attestation - Attestation I have personally seen and examined this patient.: Yes I have fully participated in the care of the patient.: Yes I have reviewed all pertinent clinical information, including history, physical exam and plan: Yes Notes (Text): This is late computer entry for 07/06/17 Patient seen, examined, and case discussed with day-time resident. Patient does not correct month, day, or year but reports the President is Solitario Marie and expresses great disgust. Patient is aware his room changed and that he is in a different part of the hospital. Neurology consult for workup for dementia; discussed with neurology; prior workup in last hospitalization. Patient is pending placement and guardianship. please note error in saving physical exam by resident in the EMR. Physical exam: - Constitutional Appears: No Acute Distress - Head Exam Head Exam: ATRAUMATIC, NORMAL INSPECTION - Eye Exam Eye Exam: EOMI, Normal appearance - ENT Exam ENT Exam: Mucous Membranes Moist - Respiratory Exam Respiratory Exam: Clear to Ausculation Bilateral, NORMAL BREATHING PATTERN. absent: Rales, Rhonchi, Wheezes, Respiratory Distress - Cardiovascular Exam Cardiovascular Exam: REGULAR RHYTHM, +S1, +S2 - GI/Abdominal Exam GI & Abdominal Exam: Soft, Normal Bowel Sounds. absent: Distended, Firm, Tenderness - Extremities Exam Extremities Exam: Normal Inspection. absent: Calf Tenderness, Tenderness - Neurological Exam Neurological Exam: Alert, Awake, Oriented x3, Cranial nerve intact (2-12) except CN 8 not tested; Upper and lower extremities 5/5 strength, negative babinski sign - Psychiatric Exam Psychiatric exam: Normal Affect, Normal Mood - Skin Skin Exam: Dry, Intact, Normal Color, Warm Assessment/Plan 1.) Family History of Alzheimer's Disease * Family Hx: patient had Alzheimer's Disease at age 71 * Patient was told by a neurologist he has early signs of dementia * Psych consult Dr. Valente --> help appreciated * CT scan of the head is negative * X-ray shows a apical granuloma * Neurology Dr. Manzanares-->help appreciated * Ordered for MRI Brain, EEG, heavy metal screen, B12, folate, and TSH Please note workup is in prior admission when patient eloped on discharge (06/18-) * CT scan of the head is negative * CT scan of the chest is negative and unremarkable * UDS is negative * UA: urine only + for ketones * Brain MRI: Limited motion degraded study. No evidence of acute hemorrhage or infarct. Minor chronic white matter ischemic changes are felt be present. Moderate generalized volume loss. * RPR: nonreactive * HIV: negative * TSH: within normal and repeat within normal * Folate: normal and repeat within normal * B12: normal and repeat within normal * Recommended to patient to follow-up with neurology outpatient and to establish care in the [facility] clinic upon discharge Medications: * Aricept 10mg PO qHS * Namenda 10mg bid * Folic acid 1mg PO daily * Crestor 2.5mg PO HS 2.) Anemia-->Resolved * Within normal * Monitor 3.) Hypokalemia-->resolved * resolved 4) Abnormal Chest xray-->resolved * CT Chest: no acute pathology noted; official report in the computer 5.) Impaired glucose tolerance * Hgba1c: 5.7 * Will need check in one year for a1c to prevent over diabetes 6.) HTN-->Chronic * continue home Cozaar 25mg PO daily * Aspirin 81mg PO daily 7.) Prophylaxis * Pepcid 20mg PO BID * SCDs Disposition: pending approval to assisted living facility called [facility] and following temporary guardianship--per latest case management note.
--- NOTE | 2017-07-06 15:18 | CP.PCM.CON ---
History of Present Illness - History of Present Illness History of Present Illness: Mr. Nelson is a 61-year-old man who states that for the last 6 months, he has been having progressive memory deficits and confusion. The changes in her personality and his memory difficulty were first noticed by his . He was apparently started on Namenda and Aricept and he believes that they are helping. Review of Systems - Review of Systems All systems: reviewed and no additional remarkable complaints except Past Patient History - Past Medical History & Family History Past Medical History?: Yes - Past Social History Smoking Status: Never Smoked - CARDIAC Hx Cardiac Disorders: No Hx Hypertension: Yes - PULMONARY Hx Respiratory Disorders: No Hx Tuberculosis: No - NEUROLOGICAL Hx Neurological Disorder: Yes Hx Alzheimer's Disease: Yes - HEENT Hx HEENT Problems: No - RENAL Hx Chronic Kidney Disease: No - ENDOCRINE/METABOLIC Hx Endocrine Disorders: No - HEMATOLOGICAL/ONCOLOGICAL Hx Blood Disorders: No Hx Human Immunodeficiency Virus (HIV): No - INTEGUMENTARY Hx Dermatological Problems: No - MUSCULOSKELETAL/RHEUMATOLOGICAL Hx Musculoskeletal Disorders: Yes Hx Falls: Yes - GASTROINTESTINAL Hx Gastrointestinal Disorders: No - GENITOURINARY/GYNECOLOGICAL Hx Genitourinary Disorders: No Hx Sexually Transmitted Disorders: No - PSYCHIATRIC Hx Psychophysiologic Disorder: Yes Hx Depression: Yes Hx Substance Use: No - SURGICAL HISTORY Hx Surgeries: Yes Other/Comment: MOLE - REMOVAL FROM FACE - ANESTHESIA Hx Anesthesia: Yes Hx Anesthesia Reactions: No Meds Allergies/Adverse Reactions: Allergies Allergy/AdvReac Type Severity Reaction Status Date / Time No Known Allergies Allergy Verified 06/21/17 19:34 - Medications Medications: Current Medications Donepezil HCl (Aricept) 10 mg PO HS [facility] Last Admin: 07/05/17 21:38 Dose: 10 mg Famotidine (Pepcid) 20 mg PO DAILY [facility] Last Admin: 07/06/17 09:20 Dose: 20 mg Losartan Potassium (Cozaar) 25 mg PO DAILY [facility] Last Admin: 07/06/17 09:20 Dose: 25 mg Memantine (Namenda) 10 mg PO BID [facility] Last Admin: 07/06/17 09:20 Dose: 10 mg Physical Exam - Constitutional Appears: Well - Head Exam Head Exam: ATRAUMATIC, NORMAL INSPECTION, NORMOCEPHALIC - Eye Exam Eye Exam: EOMI, Normal appearance, PERRL - ENT Exam ENT Exam: Mucous Membranes Moist, Normal Exam - Neck Exam Neck exam: Positive for: Normal Inspection - Respiratory Exam Respiratory Exam: Clear to Auscultation Bilateral, NORMAL BREATHING PATTERN - Cardiovascular Exam Cardiovascular Exam: REGULAR RHYTHM, +S1, +S2 - GI/Abdominal Exam GI & Abdominal Exam: Normal Bowel Sounds, Soft. absent: Tenderness - Rectal Exam Rectal Exam: Deferred - Extremities Exam Extremities exam: Positive for: normal inspection - Back Exam Back exam: NORMAL INSPECTION - Neurological Exam Neurological exam: Alert, CN II-XII Intact, Normal Gait, Reflexes Normal Additional comments: Did not know the day, month or year. Could recall 2/3 words after a delay. Could not spell WORLD backward. Could not complete the subtraction task. Attention, is impaired as are memory and orientation. - Psychiatric Exam Psychiatric exam: Normal Affect - Skin Skin Exam: Dry, Intact, Normal Color, Warm Results - Vital Signs Recent Vital Signs: Last Vital Signs Temp 98.1 F 07/06/17 07:00 Pulse 78 07/06/17 07:00 Resp 20 07/06/17 07:00 BP 114/66 07/06/17 07:00 Pulse Ox 98 07/06/17 07:00 - Labs Result Diagrams: 06/28/17 06:49 06/28/17 06:49 Assessment & Plan (1) Dementia Assessment and Plan: This seems to be progressing quickly and should be evaluated for reversible causes of dementia. I will obtain an MRI of the brain with and without contrast , check B12, folate, TSH, and heavy metal screen. Thank you Status: Chronic Priority: High
[2017-07-06 18:25] LABS: FOLATE 14.6 ng/mL
--- NOTE | 2017-07-07 00:25 | CP.PCM.PN ---
<Vidya Jean-Baptiste - Last Filed: 07/07/17 00:21> Subjective - Date & Time of Evaluation Date of Evaluation: 07/07/17 Time of Evaluation: 00:21 - Subjective Subjective: Medicine Progress Note for Dr. Sawyer Patient was seen and examined at bedside in no acute distress. Patient was laying comfortably in bed. Patient has no complaints and reports feeling well. Patient is oriented to person and place, but not time. Patient denies chest pain , abdominal pain, shortness of breath, nausea, vomiting, and fevers. Objective - Vital Signs/Intake and Output Vital Signs (last 24 hours): Temp Pulse Resp BP Pulse Ox 97.9 F 73 20 122/79 97 07/07/17 00:00 07/07/17 00:00 07/07/17 00:00 07/07/17 00:00 07/07/17 00:00 Intake and Output: 07/06/17 07/07/17 18:59 06:59 Intake Total 600 Balance 600 - Medications Medications: Current Medications Famotidine (Pepcid) 20 mg PO DAILY [facility] Last Admin: 07/06/17 09:20 Dose: 20 mg Losartan Potassium (Cozaar) 25 mg PO DAILY [facility] Last Admin: 07/06/17 09:20 Dose: 25 mg - Labs Labs: 06/28/17 06:49 06/28/17 06:49 PT 11.8 SECONDS (9.7-12.2) 06/21/17 22:04 INR 1.1 06/21/17 22:04 APTT 32 SECONDS (21-34) 06/21/17 22:04 - Additional Findings Additional findings: - Constitutional Appears: No Acute Distress - Head Exam Head Exam: ATRAUMATIC, NORMAL INSPECTION - Eye Exam Eye Exam: EOMI, Normal appearance - ENT Exam ENT Exam: Mucous Membranes Moist - Respiratory Exam Respiratory Exam: Clear to Ausculation Bilateral, NORMAL BREATHING PATTERN. absent: Rales, Rhonchi, Wheezes, Respiratory Distress - Cardiovascular Exam Cardiovascular Exam: REGULAR RHYTHM, +S1, +S2 - GI/Abdominal Exam GI & Abdominal Exam: Soft, Normal Bowel Sounds. absent: Distended, Firm, Tenderness - Extremities Exam Extremities Exam: Normal Inspection. absent: Calf Tenderness, Tenderness - Neurological Exam Neurological Exam: Alert, Awake, Oriented x3 - Psychiatric Exam Psychiatric exam: Normal Affect, Normal Mood - Skin Skin Exam: Dry, Intact, Normal Color, Warm Assessment and Plan (1) Dementia Status: Chronic (2) HTN (hypertension) Status: Chronic - Assessment and Plan (Free Text) Plan: (1) Dementia Neurology consulted, Dr. Manzanares, help appreciated * MRI: f/u results Medications: * Aricpet 10mg * Namenda 10mg bid 1:1 observation From previous admission: * CT scan of the head is negative * X-ray shows a apical granuloma * CT scan of the chest is negative and unremarkable * UDS is negative * RPR and HIV negative * UA: urine only + for ketones * Brain MRI: Limited motion degraded study. No evidence of acute hemorrhage or infarct. Minor chronic white matter ischemic changes are felt be present. Moderate generalized volume loss. (2) HTN (hypertension) - Continue home Cozaar 25mg (3) Prophylaxis - Pepcid 20mg - Heparin 5000 units sc q8h - SCDs Disposition: Patient was denied for placement at [facility]. Pending approval for [facility] assisted living facility in [place]. Spoke with casey saw operator, Najma, who applied patient for guardianship with [facility]ctive [facility] of [facility]. <Tamera Sawyer V - Last Filed: 07/08/17 10:23> Objective - Vital Signs/Intake and Output Vital Signs (last 24 hours): Temp Pulse Resp BP Pulse Ox 98.2 F 66 18 118/77 97 07/08/17 08:00 07/08/17 08:00 07/08/17 08:00 07/08/17 08:00 07/08/17 08:00 Intake and Output: 07/08/17 07/08/17 06:59 18:59 Intake Total 600 Balance 600 - Medications Medications: Current Medications Donepezil HCl (Aricept) 10 mg PO HS [facility] Last Admin: 07/07/17 21:24 Dose: 10 mg Famotidine (Pepcid) 20 mg PO DAILY [facility] Last Admin: 07/08/17 09:57 Dose: 20 mg Heparin Sodium (Porcine) (Heparin) 5,000 units SC Q8 [facility] Losartan Potassium (Cozaar) 25 mg PO DAILY [facility] Last Admin: 07/08/17 09:57 Dose: 25 mg Memantine (Namenda) 10 mg PO DAILY [facility] Last Admin: 07/08/17 09:57 Dose: 10 mg - Labs Labs: 06/28/17 06:49 06/28/17 06:49 PT 11.8 SECONDS (9.7-12.2) 06/21/17 22:04 INR 1.1 06/21/17 22:04 APTT 32 SECONDS (21-34) 06/21/17 22:04 Attending/Attestation - Attestation I have personally seen and examined this patient.: Yes I have fully participated in the care of the patient.: Yes I have reviewed all pertinent clinical information, including history, physical exam and plan: Yes Notes (Text): This is late computer entry for 07/07/17 Patient seen, examined, and case discussed with day-time resident. Patient does not correct month, day, or year but reports the President is Solitario Marie and expresses great disgust. Patient completed EEG this morning. Discussed with neurology, consideration for possible frontoemporal dementia, given early onset of dementia. Recommended further workup with can be done outpatient, including LP and PET scan. 1.) Family History of Alzheimer's Disease Early Onset of Dementia * Family Hx: patient had Alzheimer's Disease at age 71 * Patient was told by a neurologist he has early signs of dementia * Psych consult Dr. Valente --> help appreciated * CT scan of the head is negative * X-ray shows a apical granuloma * Neurology Dr. Manzanares-->help appreciated * Completed EEG 07/07/17 * Discussed patient may complete further workup as outpatient. * Pending heavy metal screen * Discussed with Dr. manzanares 07/07-->possible frontotemporal? Please note workup is in prior admission when patient eloped on discharge (06/18-) * CT scan of the head is negative * CT scan of the chest is negative and unremarkable * UDS is negative * UA: urine only + for ketones * Brain MRI: Limited motion degraded study. No evidence of acute hemorrhage or infarct. Minor chronic white matter ischemic changes are felt be present. Moderate generalized volume loss. * RPR: nonreactive * HIV: negative * TSH: within normal and repeat within normal * Folate: normal and repeat within normal * B12: normal and repeat within normal * Recommended to patient to follow-up with neurology outpatient and to establish care in the [facility] upon discharge Medications: * Aricept 10mg PO qHS * Namenda 10mg bid * Folic acid 1mg PO daily * Crestor 2.5mg PO HS 2.) Anemia-->Resolved * Within normal * Monitor 3.) Hypokalemia-->resolved * resolved 4) Abnormal Chest xray-->resolved * CT Chest: no acute pathology noted; official report in the computer 5.) Impaired glucose tolerance * Hgba1c: 5.7 * Will need check in one year for a1c to prevent over diabetes 6.) HTN-->Chronic * continue home Cozaar 25mg PO daily * Aspirin 81mg PO daily 7.) Prophylaxis * Pepcid 20mg PO BID * SCDs Disposition: pending approval to assisted living facility called [facility] and following temporary guardianship--per latest case management note.
--- NOTE | 2017-07-08 01:24 | CP.PCM.PN ---
<Vidya Jean-Baptiste - Last Filed: 07/08/17 01:22> Subjective - Date & Time of Evaluation Date of Evaluation: 07/08/17 Time of Evaluation: 01:22 - Subjective Subjective: Medicine Progress Note for Dr. Sawyer Patient was seen and examined at bedside in no acute distress. Patient was laying comfortably in bed. Patient has no complaints and reports feeling well. Patient is oriented to person, place, and time. Patient denies chest pain, abdominal pain, shortness of breath, nausea, vomiting, and fevers. Objective - Vital Signs/Intake and Output Vital Signs (last 24 hours): Temp Pulse Resp BP Pulse Ox 98.5 F 74 20 119/80 97 07/07/17 23:58 07/07/17 23:58 07/07/17 23:58 07/07/17 23:58 07/07/17 23:58 Intake and Output: 07/07/17 07/08/17 18:59 06:59 Intake Total 600 Balance 600 - Medications Medications: Current Medications Donepezil HCl (Aricept) 10 mg PO HS [facility] Last Admin: 07/07/17 21:24 Dose: 10 mg Famotidine (Pepcid) 20 mg PO DAILY [facility] Last Admin: 07/07/17 09:42 Dose: 20 mg Losartan Potassium (Cozaar) 25 mg PO DAILY [facility] Last Admin: 07/07/17 09:42 Dose: 25 mg Memantine (Namenda) 10 mg PO DAILY [facility] Last Admin: 07/07/17 09:42 Dose: 10 mg - Labs Labs: 06/28/17 06:49 06/28/17 06:49 PT 11.8 SECONDS (9.7-12.2) 06/21/17 22:04 INR 1.1 06/21/17 22:04 APTT 32 SECONDS (21-34) 06/21/17 22:04 - Additional Findings Additional findings: - Constitutional Appears: No Acute Distress - Head Exam Head Exam: ATRAUMATIC, NORMAL INSPECTION - Eye Exam Eye Exam: EOMI, Normal appearance - ENT Exam ENT Exam: Mucous Membranes Moist - Respiratory Exam Respiratory Exam: Clear to Ausculation Bilateral, NORMAL BREATHING PATTERN. absent: Rales, Rhonchi, Wheezes, Respiratory Distress - Cardiovascular Exam Cardiovascular Exam: REGULAR RHYTHM, +S1, +S2 - GI/Abdominal Exam GI & Abdominal Exam: Soft, Normal Bowel Sounds. absent: Distended, Firm, Tenderness - Extremities Exam Extremities Exam: Normal Inspection. absent: Calf Tenderness, Tenderness - Neurological Exam Neurological Exam: Alert, Awake, Oriented x3 - Psychiatric Exam Psychiatric exam: Normal Affect, Normal Mood - Skin Skin Exam: Dry, Intact, Normal Color, Warm Assessment and Plan (1) Dementia Status: Chronic (2) HTN (hypertension) Status: Chronic - Assessment and Plan (Free Text) Plan: (1) Dementia Neurology consulted, Dr. Manzanares, help appreciated * MRI: canceled due to previous MRI taken on 06/18/17 * Vitamin B12, Folate, and TSH within normal range * Heavy metal screen: f/u results Medications: * Aricpet 10mg * Namenda 10mg bid 1:1 observation From previous admission: * CT scan of the head is negative * X-ray shows a apical granuloma * CT scan of the chest is negative and unremarkable * UDS is negative * RPR and HIV negative * UA: urine only + for ketones * Brain MRI (06/18/17): Limited motion degraded study. No evidence of acute hemorrhage or infarct. Minor chronic white matter ischemic changes are felt be present. Moderate generalized volume loss. (2) HTN (hypertension) - Continue home Cozaar 25mg (3) Prophylaxis - Pepcid 20mg - Heparin 5000 units sc q8h - SCDs Disposition: Patient was denied for placement at [facility] living facility. Pending approval for [facility] assisted living facility in [place]. Spoke with correctional counselor/case manager, Najma, who applied patient for guardianship with Adult Protective [facility] of [facility]. <Tamera Sawyer V - Last Filed: 07/08/17 10:16> Objective - Vital Signs/Intake and Output Vital Signs (last 24 hours): Temp Pulse Resp BP Pulse Ox 98.2 F 66 18 118/77 97 07/08/17 08:00 07/08/17 08:00 07/08/17 08:00 07/08/17 08:00 07/08/17 08:00 Intake and Output: 07/08/17 07/08/17 06:59 18:59 Intake Total 600 Balance 600 - Medications Medications: Current Medications Donepezil HCl (Aricept) 10 mg PO HS [facility] Last Admin: 07/07/17 21:24 Dose: 10 mg Famotidine (Pepcid) 20 mg PO DAILY [facility] Last Admin: 07/08/17 09:57 Dose: 20 mg Losartan Potassium (Cozaar) 25 mg PO DAILY [facility] Last Admin: 07/08/17 09:57 Dose: 25 mg Memantine (Namenda) 10 mg PO DAILY [facility] Last Admin: 07/08/17 09:57 Dose: 10 mg - Labs Labs: 06/28/17 06:49 06/28/17 06:49 PT 11.8 SECONDS (9.7-12.2) 06/21/17 22:04 INR 1.1 06/21/17 22:04 APTT 32 SECONDS (21-34) 06/21/17 22:04 Attending/Attestation - Attestation I have personally seen and examined this patient.: Yes I have fully participated in the care of the patient.: Yes I have reviewed all pertinent clinical information, including history, physical exam and plan: Yes Notes (Text): Patient seen, examined, and case discussed with day-time resident. Patient reports today is July 16, 2016, and reports the President is Solitario Marie and expresses great disgust. Patient remarks that it is timmy outside. He walked with the nurse today. No blood work draw. Will draw blood work tomorrow. Awaiting guardianship and placement. 1.) Family History of Alzheimer's Disease Early Onset of Dementia * Family Hx: patient had Alzheimer's Disease at age 71 * Patient was told by a neurologist he has early signs of dementia * Psych consult Dr. Valente --> help appreciated * CT scan of the head is negative * X-ray shows a apical granuloma * Neurology Dr. Manzanares-->help appreciated * Completed EEG 07/07/17 * Discussed patient may complete further workup as outpatient. * Pending heavy metal screen * Discussed with Dr. manzanares 07/07-->possible frontotemporal? Please note workup is in prior admission when patient eloped on discharge. * CT scan of the chest is negative and unremarkable * UDS is negative * UA: urine only + for ketones * Brain MRI: Limited motion degraded study. No evidence of acute hemorrhage or infarct. Minor chronic white matter ischemic changes are felt be present. Moderate generalized volume loss. * RPR: nonreactive * HIV: negative * TSH: within normal and repeat within normal * Folate: normal and repeat within normal * B12: normal and repeat within normal * Recommended to patient to follow-up with neurology outpatient and to establish care in the [facility] upon discharge Medications: * Aricept 10mg PO qHS * Namenda 10mg bid * Folic acid 1mg PO daily * Crestor 2.5mg PO HS 2.) Anemia-->Resolved * Within normal * Monitor 3.) Hypokalemia-->resolved * resolved 4) Abnormal Chest xray-->resolved * CT Chest: no acute pathology noted; official report in the computer 5.) Impaired glucose tolerance * Hgba1c: 5.7 * Will need check in one year for a1c to prevent over diabetes 6.) HTN-->Chronic * continue home Cozaar 25mg PO daily * Aspirin 81mg PO daily * 2 gram diet 7.) Prophylaxis * Pepcid 20mg PO BID * Heparin 5000 units sc q8h * SCDs Disposition: pending approval to assisted living facility called [facility] and following temporary guardianship--per latest case management note.
--- NOTE | 2017-07-08 10:49 | CP.PCM.PN ---
Subjective - Date & Time of Evaluation Date of Evaluation: 07/08/17 Time of Evaluation: 10:46 - Subjective Subjective: Mr. Nelosn was seen and examined at the bedside. He is alert and episode of mild confusion. He states of feeling cold and put on his street clothes. He denies any headache, dizziness, lightheadedness, nausea, vomiting, numbness, or weakness. He is able to follow simple commands such as location of the clock and able to remember his breakfast. He remains on 1;1 sitter for patient safety. Objective - Vital Signs/Intake and Output Vital Signs (last 24 hours): Temp Pulse Resp BP Pulse Ox 98.2 F 66 18 118/77 97 07/08/17 08:00 07/08/17 08:00 07/08/17 08:00 07/08/17 08:00 07/08/17 08:00 Intake and Output: 07/08/17 07/08/17 06:59 18:59 Intake Total 600 Balance 600 - Medications Medications: Current Medications Donepezil HCl (Aricept) 10 mg PO HS [facility] Last Admin: 07/07/17 21:24 Dose: 10 mg Famotidine (Pepcid) 20 mg PO DAILY [facility] Last Admin: 07/08/17 09:57 Dose: 20 mg Heparin Sodium (Porcine) (Heparin) 5,000 units SC Q8 [facility] Losartan Potassium (Cozaar) 25 mg PO DAILY [facility] Last Admin: 07/08/17 09:57 Dose: 25 mg Memantine (Namenda) 10 mg PO DAILY [facility] Last Admin: 07/08/17 09:57 Dose: 10 mg - Labs Labs: 06/28/17 06:49 06/28/17 06:49 PT 11.8 SECONDS (9.7-12.2) 06/21/17 22:04 INR 1.1 06/21/17 22:04 APTT 32 SECONDS (21-34) 06/21/17 22:04 - Constitutional Appears: No Acute Distress - Head Exam Head Exam: ATRAUMATIC - Neurological Exam Neurological Exam: Alert, Awake, Normal Gait Neuro motor strength exam: Left Upper Extremity: 5, Right Upper Extremity: 5, Left Lower Extremity: 5, Right Lower Extremity: 5 Additional comments: Did not know the day, month or year. Could recall 2/3 words after a delay. Could not spell WORLD backward. Could not complete the subtraction task. Attention, is impaired as are memory and orientation. Assessment and Plan (1) Dementia Assessment & Plan: Case discussed with Dr. Manzanares, recommend repeat MRI of the brain with and without contrast to evaluate for reversible causes of dementia. Continue all current medical regimen. Status: Chronic
--- NOTE | 2017-07-09 07:11 | CP.PCM.PN ---
<Vidya Jean-Baptiste - Last Filed: 07/09/17 13:34> Subjective - Date & Time of Evaluation Date of Evaluation: 07/09/17 Time of Evaluation: 07:11 - Subjective Subjective: Medicine Progress Note for Dr. Damon Patient was seen and examined at bedside in no acute distress. Patient was laying comfortably in bed. Patient has no complaints and reports feeling well. Patient is oriented to person, place, and time. Patient denies chest pain, abdominal pain, shortness of breath, nausea, vomiting, and fevers. Objective - Vital Signs/Intake and Output Vital Signs (last 24 hours): Temp Pulse Resp BP Pulse Ox 98.1 F 62 20 115/68 97 07/08/17 23:43 07/08/17 23:43 07/08/17 23:43 07/08/17 23:43 07/08/17 23:43 Intake and Output: 07/09/17 07/09/17 06:59 18:59 Intake Total 550 Balance 550 - Medications Medications: Current Medications Donepezil HCl (Aricept) 10 mg PO HS [facility] Last Admin: 07/08/17 22:09 Dose: 10 mg Famotidine (Pepcid) 20 mg PO DAILY [facility] Last Admin: 07/08/17 09:57 Dose: 20 mg Heparin Sodium (Porcine) (Heparin) 5,000 units SC Q8 [facility] Last Admin: 07/09/17 05:03 Dose: 5,000 units Losartan Potassium (Cozaar) 25 mg PO DAILY [facility] Last Admin: 07/08/17 09:57 Dose: 25 mg Memantine (Namenda) 10 mg PO DAILY [facility] Last Admin: 07/08/17 09:57 Dose: 10 mg - Labs Labs: 06/28/17 06:49 06/28/17 06:49 PT 11.8 SECONDS (9.7-12.2) 06/21/17 22:04 INR 1.1 06/21/17 22:04 APTT 32 SECONDS (21-34) 06/21/17 22:04 - Additional Findings Additional findings: - Constitutional Appears: No Acute Distress - Head Exam Head Exam: ATRAUMATIC, NORMAL INSPECTION - Eye Exam Eye Exam: EOMI, Normal appearance - ENT Exam ENT Exam: Mucous Membranes Moist - Respiratory Exam Respiratory Exam: Clear to Ausculation Bilateral, NORMAL BREATHING PATTERN. absent: Rales, Rhonchi, Wheezes, Respiratory Distress - Cardiovascular Exam Cardiovascular Exam: REGULAR RHYTHM, +S1, +S2 - GI/Abdominal Exam GI & Abdominal Exam: Soft, Normal Bowel Sounds. absent: Distended, Firm, Tenderness - Extremities Exam Extremities Exam: Normal Inspection. absent: Calf Tenderness, Tenderness - Neurological Exam Neurological Exam: Alert, Awake, Oriented x3 - Psychiatric Exam Psychiatric exam: Normal Affect, Normal Mood - Skin Skin Exam: Dry, Intact, Normal Color, Warm Assessment and Plan (1) Dementia Status: Chronic (2) HTN (hypertension) Status: Chronic - Assessment and Plan (Free Text) Plan: (1) Dementia Neurology consulted, Dr. Manzanares, help appreciated * MRI: ordered, f/u results * EEG: ordered, f/u results * Vitamin B12, Folate, and TSH within normal range * Heavy metal screen: f/u results Medications: * Aricpet 10mg * Namenda 10mg bid 1:1 observation From previous admission: * CT scan of the head is negative * X-ray shows a apical granuloma * CT scan of the chest is negative and unremarkable * UDS is negative * RPR and HIV negative * UA: urine only + for ketones * Brain MRI (06/18/17): Limited motion degraded study. No evidence of acute hemorrhage or infarct. Minor chronic white matter ischemic changes are felt be present. Moderate generalized volume loss. (2) HTN (hypertension) - Continue home Cozaar 25mg (3) Prophylaxis - Pepcid 20mg - Heparin 5000 units sc q8h - SCDs - Heart Healthy diet Disposition: Patient was denied for placement at [facility]. Pending approval for [facility] assisted living facility in [place]. Spoke with residential case manager, Najma, who applied patient for guardianship with Adult Protective Services of [facility]. <Gary Damon - Last Filed: 07/09/17 19:52> Objective - Vital Signs/Intake and Output Vital Signs (last 24 hours): Temp Pulse Resp BP Pulse Ox 98.1 F 66 20 100/68 98 07/09/17 16:00 07/09/17 16:00 07/09/17 16:00 07/09/17 16:00 07/09/17 16:00 Intake and Output: 07/09/17 07/10/17 18:59 06:59 Intake Total 500 Balance 500 - Medications Medications: Current Medications Donepezil HCl (Aricept) 10 mg PO HS [facility] Last Admin: 07/08/17 22:09 Dose: 10 mg Famotidine (Pepcid) 20 mg PO DAILY [facility] Last Admin: 07/09/17 08:59 Dose: 20 mg Heparin Sodium (Porcine) (Heparin) 5,000 units SC Q8 [facility] Last Admin: 07/09/17 13:07 Dose: 5,000 units Losartan Potassium (Cozaar) 25 mg PO DAILY [facility] Last Admin: 07/09/17 08:59 Dose: 25 mg Memantine (Namenda) 10 mg PO DAILY [facility] Last Admin: 07/09/17 08:59 Dose: 10 mg - Labs Labs: 07/09/17 08:06 07/09/17 08:06 PT 11.8 SECONDS (9.7-12.2) 06/21/17 22:04 INR 1.1 06/21/17 22:04 APTT 32 SECONDS (21-34) 06/21/17 22:04 Attending/Attestation - Attestation I have personally seen and examined this patient.: Yes I have fully participated in the care of the patient.: Yes I have reviewed all pertinent clinical information, including history, physical exam and plan: Yes Notes (Text): 07/09/17 19:47 Patient was seen and examined at 11:15 AM 07/09/17 358 A Exam, assessment and plan were thoroughly gone over with the resident. HEENT, Cardio, Resp, GI, Ext, CN exams were unremarkable Assessments: 1). Dimentia: Aricept, Namenda, Folic Acid, Crestor, ASA 2). Anemia: resolved 3). Hypokalemia: resolved 4). Abnormal Chest X Ray (Granuloma?): CT Chest was unremarkable 5). Impaired Fasting Glucose: HgBA1C was 5.7 6). HTN: Cozaar 7). Prophylaxis: Pepcid, SCD,Heparin, 1:1 observation for elopement risk F/U MRI Brain and EEG (to help rule out reversible causes of dementia) ordered by Neurology Dr. Manzanares I spoke with [employer] Mary Carmen and she explained that [facility]ctive Services who applied for guardianship is making arrangements for placement. Gary Damon D.O.
--- NOTE | 2017-07-09 07:14 | CP.PCM.PN ---
Subjective - Date & Time of Evaluation Date of Evaluation: 07/09/17 Time of Evaluation: 07:11 - Subjective Subjective: Mr. Nelson was seen and examined at the bedside. He is alert, oriented to place and person, but not time (2014). He denies any headache, dizziness, lightheadedness, nausea, or vomiting. He remains on 1:1 sitter for patient safety. There was no untoward events overnight. Objective - Vital Signs/Intake and Output Vital Signs (last 24 hours): Temp Pulse Resp BP Pulse Ox 98.1 F 62 20 115/68 97 07/08/17 23:43 07/08/17 23:43 07/08/17 23:43 07/08/17 23:43 07/08/17 23:43 Intake and Output: 07/09/17 07/09/17 06:59 18:59 Intake Total 550 Balance 550 - Medications Medications: Current Medications Donepezil HCl (Aricept) 10 mg PO HS [facility] Last Admin: 07/08/17 22:09 Dose: 10 mg Famotidine (Pepcid) 20 mg PO DAILY [facility] Last Admin: 07/08/17 09:57 Dose: 20 mg Heparin Sodium (Porcine) (Heparin) 5,000 units SC Q8 [facility] Last Admin: 07/09/17 05:03 Dose: 5,000 units Losartan Potassium (Cozaar) 25 mg PO DAILY [facility] Last Admin: 07/08/17 09:57 Dose: 25 mg Memantine (Namenda) 10 mg PO DAILY [facility] Last Admin: 07/08/17 09:57 Dose: 10 mg - Labs Labs: 06/28/17 06:49 06/28/17 06:49 PT 11.8 SECONDS (9.7-12.2) 06/21/17 22:04 INR 1.1 06/21/17 22:04 APTT 32 SECONDS (21-34) 06/21/17 22:04 - Constitutional Appears: No Acute Distress - Head Exam Head Exam: ATRAUMATIC - Neurological Exam Neurological Exam: Alert, Awake, Normal Gait Neuro motor strength exam: Left Upper Extremity: 5, Right Upper Extremity: 5, Left Lower Extremity: 5, Right Lower Extremity: 5 Additional comments: Neurological unchanged form previous examination. Sensation remains intact. Assessment and Plan (1) Dementia Assessment & Plan: Case discussed with Glenna Smith, continue all current medical, physical, and occupational therapies. Pending MRI of the brain to evaluate the progression of dementia. Status: Chronic
[2017-07-09 08:16] LABS: BASO % 0.3 % (0.0-2.0); EOS # 0.1 K/uL (0.0-0.7); EOS % 1.3 % (0.0-4.0); HEMOGLOBIN 14.5 g/dL (12.0-18.0); LYMPH # 1.4 K/uL (1.0-4.3); LYMPH % 26.2 % (20.0-40.0); MEAN CELL VOLUME 93.5 fL (80.0-94.0); MEAN CORPUSCULAR HEMOGLOBIN 33.3 pg (27.0-31.0); MEAN CORPUSCULAR HGB CONC 35.6 g/dL (33.0-37.0); MEAN PLATELET VOLUME 7.4 fL (7.2-11.7); MONO # 0.5 K/uL (0.0-0.8); MONO % 9.7 % (0.0-10.0); NEUT # 3.4 K/uL (1.8-7.0); NEUT % 62.5 % (50.0-75.0); NRBC % 0.1 % (0.0-2.0); RBC 4.35 Mil/uL (4.40-5.90); RED CELL DISTRIBUTION WIDTH 12.8 % (11.5-14.5); WHITE BLOOD COUNT 5.4 K/uL (4.8-10.8)
[2017-07-09 09:11] LABS: ALB/GLOB RATIO 1.5 (1.0-2.1); ALBUMIN 3.7 g/dL (3.5-5.0); ALT/SGPT 55 U/L (21-72); AST/SGOT 26 U/L (17-59); BLOOD UREA NITROGEN 16 mg/dL (9-20); CALCIUM 8.4 mg/dl (8.6-10.4); GFR AFRICAN-AMERICAN > 60; GFR NON-AFRICAN AMERICAN > 60
[2017-07-09] MEDS ORDERED: Gadodiamide 287 mg/ml 20 ml IV ONE (10:35)
--- NOTE | 2017-07-09 11:21 | MRI ---
PROCEDURE: MRI BRAIN WITH AND WITHOUT CONTRAST HISTORY: Dementia COMPARISON: 06/18/2017 TECHNIQUE: Multiplanar, multisequence MR images of the brain were obtained with and without intravenous contrast enhancement. 16 mL Omniscan was injected intravenously FINDINGS: HEMORRHAGE: None DWI: No evidence of an acute or early subacute infarction. BRAIN PARENCHYMA: Again seen are minimal chronic microangiopathic changes. There is no mass, mass effect or abnormal extra-axial fluid collection. The midline sagittal structures are normal. ENHANCEMENT: No abnormal intracranial enhancement. VENTRICLES: There is mild age-related global parenchymal volume loss and proportionate enlargement of the ventricles and cortical sulci. There is a cavum septum pellucidum. CRANIUM: There is normal bone marrow signal pattern. ORBITS: Grossly unremarkable. PARANASAL SINUSES/MASTOIDS: Predominantly clear. VASCULAR SYSTEM: There are normal signal voids in the larger intracranial arteries. OTHER FINDINGS: None . IMPRESSION: No acute intracranial abnormality. Mild chronic microangiopathic changes and mild age-related global parenchymal volume loss.
--- NOTE | 2017-07-10 09:53 | CP.PCM.PN ---
<Vidya Jean-Baptiste - Last Filed: 07/10/17 13:54> Subjective - Date & Time of Evaluation Date of Evaluation: 07/10/17 Time of Evaluation: 09:52 - Subjective Subjective: Medicine Progress Note for Dr. Damon Patient was seen and examined at bedside in no acute distress. Patient was laying comfortably in bed. Patient has no complaints and reports feeling well. Patient is oriented to person, place, but not time. Patient denies chest pain, abdominal pain, shortness of breath, nausea, vomiting, and fevers. Objective - Vital Signs/Intake and Output Vital Signs (last 24 hours): Temp Pulse Resp BP Pulse Ox 97.3 F L 68 20 118/80 100 07/10/17 08:30 07/10/17 08:30 07/10/17 08:30 07/10/17 08:30 07/10/17 08:30 Intake and Output: 07/10/17 07/10/17 06:59 18:59 Intake Total 300 300 Balance 300 300 - Medications Medications: Current Medications Aspirin (Ecotrin) 81 mg PO DAILY [facility] Last Admin: 07/10/17 09:49 Dose: 81 mg Donepezil HCl (Aricept) 10 mg PO HS [facility] Last Admin: 07/09/17 21:05 Dose: 10 mg Famotidine (Pepcid) 20 mg PO DAILY [facility] Last Admin: 07/10/17 09:49 Dose: 20 mg Heparin Sodium (Porcine) (Heparin) 5,000 units SC Q8 [facility] Last Admin: 07/10/17 05:56 Dose: 5,000 units Losartan Potassium (Cozaar) 25 mg PO DAILY [facility] Last Admin: 07/10/17 09:49 Dose: 25 mg Memantine (Namenda) 10 mg PO DAILY [facility] Last Admin: 07/10/17 09:49 Dose: 10 mg - Labs Labs: 07/09/17 08:06 07/09/17 08:06 PT 11.8 SECONDS (9.7-12.2) 06/21/17 22:04 INR 1.1 06/21/17 22:04 APTT 32 SECONDS (21-34) 06/21/17 22:04 - Additional Findings Additional findings: - Constitutional Appears: No Acute Distress - Head Exam Head Exam: ATRAUMATIC, NORMAL INSPECTION - Eye Exam Eye Exam: EOMI, Normal appearance - ENT Exam ENT Exam: Mucous Membranes Moist - Respiratory Exam Respiratory Exam: Clear to Ausculation Bilateral, NORMAL BREATHING PATTERN. absent: Rales, Rhonchi, Wheezes, Respiratory Distress - Cardiovascular Exam Cardiovascular Exam: REGULAR RHYTHM, +S1, +S2 - GI/Abdominal Exam GI & Abdominal Exam: Soft, Normal Bowel Sounds. absent: Distended, Firm, Tenderness - Extremities Exam Extremities Exam: Normal Inspection. absent: Calf Tenderness, Tenderness - Neurological Exam Neurological Exam: Alert, Awake, Oriented x3 - Psychiatric Exam Psychiatric exam: Normal Affect, Normal Mood - Skin Skin Exam: Dry, Intact, Normal Color, Warm Assessment and Plan (1) Dementia Status: Chronic (2) HTN (hypertension) Status: Chronic - Assessment and Plan (Free Text) Plan: (1) Dementia Neurology consulted, Dr. Manzanares, help appreciated * Brain MRI (07/09): ordered, no acute intracranial abnormality; mild chronic microangiopathic changes and mild-age related global parenchymal volume loss. * EEG: ordered, f/u results * Vitamin B12, Folate, and TSH within normal range * Heavy metal screen: f/u results Medications: * Aricpet 10mg * Namenda 10mg bid 1:1 observation From previous admission: * CT scan of the head is negative * X-ray shows a apical granuloma * CT scan of the chest is negative and unremarkable * UDS is negative * RPR and HIV negative * UA: urine only + for ketones * Brain MRI (06/18/17): Limited motion degraded study. No evidence of acute hemorrhage or infarct. Minor chronic white matter ischemic changes are felt be present. Moderate generalized volume loss. (2) HTN (hypertension) - Continue home Cozaar 25mg (3) Prophylaxis - Pepcid 20mg - Heparin 5000 units sc q8h - SCDs - Heart Healthy diet Disposition: Patient was denied for placement at [place] assisted living facility. Pending approval for [facility] assisted living facility in [place]. Pending guardianship with Adult Protective Services of [facility]. <Gary Damon - Last Filed: 07/10/17 20:03> Objective - Vital Signs/Intake and Output Vital Signs (last 24 hours): Temp Pulse Resp BP Pulse Ox 98.1 F 69 20 109/74 98 07/10/17 15:00 07/10/17 15:00 07/10/17 15:00 07/10/17 15:00 07/10/17 15:00 Intake and Output: 07/10/17 07/11/17 18:59 06:59 Intake Total 300 Balance 300 - Medications Medications: Current Medications Aspirin (Ecotrin) 81 mg PO DAILY [facility] Last Admin: 07/10/17 09:49 Dose: 81 mg Donepezil HCl (Aricept) 10 mg PO HS [facility] Last Admin: 07/09/17 21:05 Dose: 10 mg Famotidine (Pepcid) 20 mg PO DAILY [facility] Last Admin: 07/10/17 09:49 Dose: 20 mg Heparin Sodium (Porcine) (Heparin) 5,000 units SC Q8 [facility] Last Admin: 07/10/17 13:29 Dose: 5,000 units Losartan Potassium (Cozaar) 25 mg PO DAILY [facility] Last Admin: 07/10/17 09:49 Dose: 25 mg Memantine (Namenda) 10 mg PO DAILY [facility] Last Admin: 07/10/17 09:49 Dose: 10 mg - Labs Labs: 07/09/17 08:06 07/09/17 08:06 PT 11.8 SECONDS (9.7-12.2) 06/21/17 22:04 INR 1.1 06/21/17 22:04 APTT 32 SECONDS (21-34) 06/21/17 22:04 Attending/Attestation - Attestation I have personally seen and examined this patient.: Yes I have fully participated in the care of the patient.: Yes I have reviewed all pertinent clinical information, including history, physical exam and plan: Yes Notes (Text): 07/10/17 19:58 Patient was seen and examined at 12:45 PM 07/10/17 358 A Exam, assessment and plan were thoroughly gone over with the resident. HEENT, Cardio, Resp, GI, Ext, CN exams were unremarkable Assessments: 1). Dimentia: Aricept, Namenda, Folic Acid, Crestor, ASA 2). Anemia: resolved 3). Hypokalemia: resolved 4). Abnormal Chest X Ray (Granuloma?): CT Chest was unremarkable 5). Impaired Fasting Glucose: HgBA1C was 5.7 6). HTN: Cozaar 7). Prophylaxis: Pepcid, SCD,Heparin, 1:1 observation for elopement risk MRI Brain without contrast showed NO acute intracranial abnormality, mild chronic microangiopathic changes, and mild age related global parenchymal Please note that there was NO EEG ordered by Neurology. F/U Heavy Metal blood work up. I spoke with Log Skidder Mary Carmen and she explained that [facility] Protective Services who applied for guardianship is making arrangements for placement. Gary Damon D.O.
--- NOTE | 2017-07-11 06:58 | CP.PCM.PN ---
<Vidya Jean-Baptiste - Last Filed: 07/11/17 15:37> Subjective - Date & Time of Evaluation Date of Evaluation: 07/11/17 Time of Evaluation: 06:58 - Subjective Subjective: Medicine Progress Note for Dr. Damon Patient was seen and examined at bedside in no acute distress. Patient was laying comfortably in bed. Patient has no complaints and reports feeling well. Patient is oriented to person, place, and time. Patient denies chest pain, abdominal pain, shortness of breath, nausea, vomiting, and fevers. Objective - Vital Signs/Intake and Output Vital Signs (last 24 hours): Temp Pulse Resp BP Pulse Ox 97.5 F L 66 20 110/78 96 07/11/17 00:05 07/11/17 00:05 07/11/17 00:05 07/11/17 00:05 07/11/17 00:05 Intake and Output: 07/10/17 07/11/17 18:59 06:59 Intake Total 300 500 Balance 300 500 - Medications Medications: Current Medications Aspirin (Ecotrin) 81 mg PO DAILY [facility] Last Admin: 07/10/17 09:49 Dose: 81 mg Donepezil HCl (Aricept) 10 mg PO HS [facility] Last Admin: 07/10/17 21:47 Dose: 10 mg Famotidine (Pepcid) 20 mg PO DAILY [facility] Last Admin: 07/10/17 09:49 Dose: 20 mg Heparin Sodium (Porcine) (Heparin) 5,000 units SC Q8 [facility] Last Admin: 07/11/17 06:49 Dose: 5,000 units Losartan Potassium (Cozaar) 25 mg PO DAILY [facility] Last Admin: 07/10/17 09:49 Dose: 25 mg Memantine (Namenda) 10 mg PO DAILY [facility] Last Admin: 07/10/17 09:49 Dose: 10 mg - Labs Labs: 07/09/17 08:06 07/09/17 08:06 PT 11.8 SECONDS (9.7-12.2) 06/21/17 22:04 INR 1.1 06/21/17 22:04 APTT 32 SECONDS (21-34) 06/21/17 22:04 - Additional Findings Additional findings: - Constitutional Appears: No Acute Distress - Head Exam Head Exam: ATRAUMATIC, NORMAL INSPECTION - Eye Exam Eye Exam: EOMI, Normal appearance - ENT Exam ENT Exam: Mucous Membranes Moist - Respiratory Exam Respiratory Exam: Clear to Ausculation Bilateral, NORMAL BREATHING PATTERN. absent: Rales, Rhonchi, Wheezes, Respiratory Distress - Cardiovascular Exam Cardiovascular Exam: REGULAR RHYTHM, +S1, +S2 - GI/Abdominal Exam GI & Abdominal Exam: Soft, Normal Bowel Sounds. absent: Distended, Firm, Tenderness - Extremities Exam Extremities Exam: Normal Inspection. absent: Calf Tenderness, Tenderness - Neurological Exam Neurological Exam: Alert, Awake, Oriented x3 - Psychiatric Exam Psychiatric exam: Normal Affect, Normal Mood - Skin Skin Exam: Dry, Intact, Normal Color, Warm Assessment and Plan (1) Dementia Status: Chronic (2) HTN (hypertension) Status: Chronic - Assessment and Plan (Free Text) Plan: (1) Dementia Neurology consulted, Dr. Manzanares, help appreciated * Brain MRI (07/09): ordered, no acute intracranial abnormality; mild chronic microangiopathic changes and mild-age related global parenchymal volume loss. * Vitamin B12, Folate, and TSH within normal range * Heavy metal screen: negative Medications: * Aricpet 10mg * Namenda 10mg bid 1:1 observation From previous admission: * CT scan of the head is negative * X-ray shows a apical granuloma * CT scan of the chest is negative and unremarkable * UDS is negative * RPR and HIV negative * UA: urine only + for ketones * Brain MRI (06/18/17): Limited motion degraded study. No evidence of acute hemorrhage or infarct. Minor chronic white matter ischemic changes are felt be present. Moderate generalized volume loss. (2) HTN (hypertension) - Continue home Cozaar 25mg (3) Prophylaxis - Pepcid 20mg - Heparin 5000 units sc q8h - SCDs - Heart Healthy diet Disposition: Patient was denied for placement at [place] assisted living facility. Pending approval for [facility] assisted living facility in [place]. Pending guardianship with [facility] Protective Services of [facility]. <Gary Damon - Last Filed: 07/11/17 18:46> Objective - Vital Signs/Intake and Output Vital Signs (last 24 hours): Temp Pulse Resp BP Pulse Ox 97.7 F 76 20 124/72 98 07/11/17 16:00 07/11/17 16:00 07/11/17 16:00 07/11/17 16:00 07/11/17 16:00 Intake and Output: 07/11/17 07/11/17 06:59 18:59 Intake Total 500 Balance 500 - Medications Medications: Current Medications Aspirin (Ecotrin) 81 mg PO DAILY [facility] Last Admin: 07/11/17 09:45 Dose: 81 mg Donepezil HCl (Aricept) 10 mg PO HS [facility] Last Admin: 07/10/17 21:47 Dose: 10 mg Famotidine (Pepcid) 20 mg PO DAILY [facility] Last Admin: 07/11/17 09:45 Dose: 20 mg Heparin Sodium (Porcine) (Heparin) 5,000 units SC Q8 [facility] Last Admin: 07/11/17 13:31 Dose: 5,000 units Losartan Potassium (Cozaar) 25 mg PO DAILY [facility] Last Admin: 07/11/17 09:45 Dose: 25 mg Memantine (Namenda) 10 mg PO DAILY [facility] Last Admin: 07/11/17 09:45 Dose: 10 mg - Labs Labs: 07/09/17 08:06 07/09/17 08:06 PT 11.8 SECONDS (9.7-12.2) 06/21/17 22:04 INR 1.1 06/21/17 22:04 APTT 32 SECONDS (21-34) 06/21/17 22:04 Attending/Attestation - Attestation I have personally seen and examined this patient.: Yes I have fully participated in the care of the patient.: Yes I have reviewed all pertinent clinical information, including history, physical exam and plan: Yes Notes (Text): 07/11/17 18:45 Patient was seen and examined at 12:45 PM 07/11/17 358 A Exam, assessment and plan were thoroughly gone over with the resident. HEENT, Cardio, Resp, GI, Ext, CN exams were unremarkable Assessments: 1). Dimentia: Aricept, Namenda, Folic Acid, Crestor, ASA 2). Anemia: resolved 3). Hypokalemia: resolved 4). Abnormal Chest X Ray (Granuloma?): CT Chest was unremarkable 5). Impaired Fasting Glucose: HgBA1C was 5.7 6). HTN: Cozaar 7). Prophylaxis: Pepcid, SCD,Heparin, 1:1 observation for elopement risk MRI Brain without contrast showed NO acute intracranial abnormality, mild chronic microangiopathic changes, and mild age related global parenchymal Heavy Metal blood work up was negative. I spoke with Sugar Laboratory Assistant Mary Carmen 07/09/17 and she explained that [facility] Protective Services who applied for guardianship is making arrangements for placement. Gary Damon D.O.
--- NOTE | 2017-07-11 10:44 | CP.PCM.PN ---
Subjective - Date & Time of Evaluation Date of Evaluation: 07/11/17 Time of Evaluation: 10:42 - Subjective Subjective: Mr. Nelson was seen and examined at the bedside. He is alert, oriented to person and place, but not time. He denies any headache, dizziness, lightheadedness, nausea, or vomiting. He states of having a great appetite. Heavy metal result showed all within normal levels. MRI showed no actue intracranial abnormality, with mild chronic angiopathies. He remains on 1:1 sitter for patient safety. There was no untoward events overnight. Objective - Vital Signs/Intake and Output Vital Signs (last 24 hours): Temp Pulse Resp BP Pulse Ox 97.5 F L 72 20 110/69 98 07/11/17 07:33 07/11/17 07:33 07/11/17 07:33 07/11/17 07:33 07/11/17 07:33 Intake and Output: 07/11/17 07/11/17 06:59 18:59 Intake Total 500 Balance 500 - Medications Medications: Current Medications Aspirin (Ecotrin) 81 mg PO DAILY [facility] Last Admin: 07/11/17 09:45 Dose: 81 mg Donepezil HCl (Aricept) 10 mg PO HS [facility] Last Admin: 07/10/17 21:47 Dose: 10 mg Famotidine (Pepcid) 20 mg PO DAILY [facility] Last Admin: 07/11/17 09:45 Dose: 20 mg Heparin Sodium (Porcine) (Heparin) 5,000 units SC Q8 [facility] Last Admin: 07/11/17 06:49 Dose: 5,000 units Losartan Potassium (Cozaar) 25 mg PO DAILY [facility] Last Admin: 07/11/17 09:45 Dose: 25 mg Memantine (Namenda) 10 mg PO DAILY [facility] Last Admin: 07/11/17 09:45 Dose: 10 mg - Labs Labs: 07/09/17 08:06 07/09/17 08:06 PT 11.8 SECONDS (9.7-12.2) 06/21/17 22:04 INR 1.1 06/21/17 22:04 APTT 32 SECONDS (21-34) 06/21/17 22:04 - Constitutional Appears: No Acute Distress - Head Exam Head Exam: ATRAUMATIC - Neurological Exam Neurological Exam: Alert, Awake Neuro motor strength exam: Left Upper Extremity: 5, Right Upper Extremity: 5, Left Lower Extremity: 5, Right Lower Extremity: 5 Additional comments: Neurological unchanged from previous examination. Assessment and Plan (1) Dementia Assessment & Plan: Case discussed with Dr. Manzanares, heavy metals showed within normal limits. MRI showed no acute changes. Continue all current medical regimen. There is no new recommendation from neurology. Status: Chronic
--- NOTE | 2017-07-12 06:53 | CP.PCM.PN ---
<Vidya Jean-Baptiste - Last Filed: 07/12/17 11:03> Subjective - Date & Time of Evaluation Date of Evaluation: 07/12/17 Time of Evaluation: 06:53 - Subjective Subjective: Medicine Progress Note for Dr. Damon Patient was seen and examined at bedside in no acute distress. Patient was laying comfortably in bed. Patient has no complaints and reports feeling well. Patient is oriented to person, place, and time. Patient denies chest pain, abdominal pain, shortness of breath, nausea, vomiting, and fevers. Objective - Vital Signs/Intake and Output Vital Signs (last 24 hours): Temp Pulse Resp BP Pulse Ox 97.7 F 64 20 115/74 98 07/11/17 23:55 07/11/17 23:55 07/11/17 23:55 07/11/17 23:55 07/11/17 23:55 Intake and Output: 07/11/17 07/12/17 18:59 06:59 Intake Total 350 Balance 350 - Medications Medications: Current Medications Aspirin (Ecotrin) 81 mg PO DAILY [facility] Last Admin: 07/11/17 09:45 Dose: 81 mg Donepezil HCl (Aricept) 10 mg PO HS [facility] Last Admin: 07/11/17 21:38 Dose: 10 mg Famotidine (Pepcid) 20 mg PO DAILY [facility] Last Admin: 07/11/17 09:45 Dose: 20 mg Heparin Sodium (Porcine) (Heparin) 5,000 units SC Q8 [facility] Last Admin: 07/12/17 06:26 Dose: 5,000 units Losartan Potassium (Cozaar) 25 mg PO DAILY [facility] Last Admin: 07/11/17 09:45 Dose: 25 mg Memantine (Namenda) 10 mg PO DAILY [facility] Last Admin: 07/11/17 09:45 Dose: 10 mg - Labs Labs: 07/09/17 08:06 07/09/17 08:06 PT 11.8 SECONDS (9.7-12.2) 06/21/17 22:04 INR 1.1 06/21/17 22:04 APTT 32 SECONDS (21-34) 06/21/17 22:04 - Additional Findings Additional findings: - Constitutional Appears: No Acute Distress - Head Exam Head Exam: ATRAUMATIC, NORMAL INSPECTION - Eye Exam Eye Exam: EOMI, Normal appearance - ENT Exam ENT Exam: Mucous Membranes Moist - Respiratory Exam Respiratory Exam: Clear to Ausculation Bilateral, NORMAL BREATHING PATTERN. absent: Rales, Rhonchi, Wheezes, Respiratory Distress - Cardiovascular Exam Cardiovascular Exam: REGULAR RHYTHM, +S1, +S2 - GI/Abdominal Exam GI & Abdominal Exam: Soft, Normal Bowel Sounds. absent: Distended, Firm, Tenderness - Extremities Exam Extremities Exam: Normal Inspection. absent: Calf Tenderness, Tenderness - Neurological Exam Neurological Exam: Alert, Awake, Oriented x3 - Psychiatric Exam Psychiatric exam: Normal Affect, Normal Mood - Skin Skin Exam: Dry, Intact, Normal Color, Warm Assessment and Plan (1) Dementia Status: Chronic (2) HTN (hypertension) Status: Chronic - Assessment and Plan (Free Text) Plan: (1) Dementia Neurology consulted, Dr. Manzanares, help appreciated * Brain MRI (07/09): ordered, no acute intracranial abnormality; mild chronic microangiopathic changes and mild-age related global parenchymal volume loss. * Vitamin B12, Folate, and TSH within normal range * Heavy metal screen: negative Medications: * Aricpet 10mg * Namenda 10mg bid 1:1 observation From previous admission: * CT scan of the head is negative * X-ray shows a apical granuloma * CT scan of the chest is negative and unremarkable * UDS is negative * RPR and HIV negative * UA: urine only + for ketones * Brain MRI (06/18/17): Limited motion degraded study. No evidence of acute hemorrhage or infarct. Minor chronic white matter ischemic changes are felt be present. Moderate generalized volume loss. (2) HTN (hypertension) - Continue home Cozaar 25mg (3) Prophylaxis - Pepcid 20mg - Heparin 5000 units sc q8h - SCDs - Heart Healthy diet Disposition: Patient was denied for placement at [place] assisted living facility. Pending approval for [facility] in [place]. Pending guardianship with Adult Protective Services of [facility]. <Gary Damon - Last Filed: 07/12/17 18:18> Objective - Vital Signs/Intake and Output Vital Signs (last 24 hours): Temp Pulse Resp BP Pulse Ox 97.7 F 64 20 135/58 L 96 07/12/17 07:36 07/12/17 07:36 07/12/17 07:36 07/12/17 07:36 07/12/17 07:36 Intake and Output: 07/12/17 07/12/17 06:59 18:59 Intake Total 350 500 Balance 350 500 - Medications Medications: Current Medications Aspirin (Ecotrin) 81 mg PO DAILY [facility] Last Admin: 07/12/17 12:18 Dose: Not Given Donepezil HCl (Aricept) 10 mg PO HS [facility] Last Admin: 07/11/17 21:38 Dose: 10 mg Famotidine (Pepcid) 20 mg PO DAILY [facility] Last Admin: 07/12/17 12:18 Dose: Not Given Folic Acid (Folic Acid) 1 mg PO DAILY [facility] Heparin Sodium (Porcine) (Heparin) 5,000 units SC Q8 [facility] Last Admin: 07/12/17 13:09 Dose: 5,000 units Losartan Potassium (Cozaar) 25 mg PO DAILY [facility] Last Admin: 07/12/17 12:18 Dose: Not Given Memantine (Namenda) 10 mg PO DAILY [facility] Last Admin: 07/12/17 12:18 Dose: Not Given Rosuvastatin Calcium (Crestor) 2.5 mg PO HS [facility] - Labs Labs: 07/09/17 08:06 07/09/17 08:06 PT 11.8 SECONDS (9.7-12.2) 06/21/17 22:04 INR 1.1 06/21/17 22:04 APTT 32 SECONDS (21-34) 06/21/17 22:04 Attending/Attestation - Attestation I have personally seen and examined this patient.: Yes I have fully participated in the care of the patient.: Yes I have reviewed all pertinent clinical information, including history, physical exam and plan: Yes Notes (Text): 07/12/17 18:16 Patient was seen and examined at 10:45 AM 07/12/17 358 A Exam, assessment and plan were thoroughly gone over with the resident. HEENT, Cardio, Resp, GI, Ext, CN exams were unremarkable Assessments: 1). Dimentia: Aricept, Namenda, Folic Acid, Crestor, ASA 2). Anemia: resolved 3). Hypokalemia: resolved 4). Abnormal Chest X Ray (Granuloma?): CT Chest was unremarkable 5). Impaired Fasting Glucose: HgBA1C was 5.7 6). HTN: Cozaar 7). Prophylaxis: Pepcid, SCD,Heparin, 1:1 observation for elopement risk MRI Brain without contrast showed NO acute intracranial abnormality, mild chronic microangiopathic changes, and mild age related global parenchymal Heavy Metal blood work up was negative. I spoke with Plant And Instrument Engineer Mary Carmen 07/09/17 and she explained that [facility] Protective Services who applied for guardianship is making arrangements for placement. Gary Damon D.O.
--- NOTE | 2017-07-12 10:04 | CP.PCM.PN ---
Subjective - Date & Time of Evaluation Date of Evaluation: 07/12/17 Time of Evaluation: 09:59 - Subjective Subjective: Mr. Nelson was seen and examined at the bedside. He is alert, oriented to person and place but not time. He denies any headache, dizziness, lightheadedness, nausea, or vomiting. He ambulated within his room in steady gait. He remains on 1;1 sitter for patient safety. With the result of heavy metal showed within normal limits and MRI of the brain showed chronic angiopathies with volume loss , patient is on dementia medications. There is no untoward events overnight. Objective - Vital Signs/Intake and Output Vital Signs (last 24 hours): Temp Pulse Resp BP Pulse Ox 97.7 F 64 20 135/58 L 96 07/12/17 07:36 07/12/17 07:36 07/12/17 07:36 07/12/17 07:36 07/12/17 07:36 Intake and Output: 07/12/17 07/12/17 06:59 18:59 Intake Total 350 Balance 350 - Medications Medications: Current Medications Aspirin (Ecotrin) 81 mg PO DAILY [facility] Last Admin: 07/12/17 08:43 Dose: 81 mg Donepezil HCl (Aricept) 10 mg PO HS [facility] Last Admin: 07/11/17 21:38 Dose: 10 mg Famotidine (Pepcid) 20 mg PO DAILY [facility] Last Admin: 07/12/17 08:42 Dose: 20 mg Heparin Sodium (Porcine) (Heparin) 5,000 units SC Q8 [facility] Last Admin: 07/12/17 06:26 Dose: 5,000 units Losartan Potassium (Cozaar) 25 mg PO DAILY [facility] Last Admin: 07/12/17 08:43 Dose: 25 mg Memantine (Namenda) 10 mg PO DAILY [facility] Last Admin: 07/12/17 08:42 Dose: 10 mg - Labs Labs: 07/09/17 08:06 07/09/17 08:06 PT 11.8 SECONDS (9.7-12.2) 06/21/17 22:04 INR 1.1 06/21/17 22:04 APTT 32 SECONDS (21-34) 06/21/17 22:04 - Constitutional Appears: No Acute Distress - Head Exam Head Exam: ATRAUMATIC - Neurological Exam Neurological Exam: Alert, Awake Neuro motor strength exam: Left Upper Extremity: 5, Right Upper Extremity: 5, Left Lower Extremity: 5, Right Lower Extremity: 5 Additional comments: Neurological status unchanged from previous examination. Assessment and Plan (1) Dementia Assessment & Plan: Case discussed with Dr. Manzanares, continue all current medical therapy. Recommend for any dementia work-up as an outpatient. Dr. Manzanares can follow up with the patient as an outpatient. Status: Chronic
[2017-07-12] MEDS: Rosuvastatin Calcium 2.5 mg Tab PO SCH (21:32)
--- NOTE | 2017-07-13 09:18 | CP.PCM.PN ---
<Vidya Jean-Baptiste - Last Filed: 07/13/17 15:28> Subjective - Date & Time of Evaluation Date of Evaluation: 07/13/17 Time of Evaluation: 09:17 - Subjective Subjective: Medicine Progress Note for Dr. Damon Patient was seen and examined at bedside in no acute distress. Patient was laying comfortably in bed. Patient has no complaints and reports feeling well. Patient is oriented to person, place, but not time (thought it was August). Patient denies chest pain, abdominal pain, shortness of breath, nausea, vomiting , and fevers. Objective - Vital Signs/Intake and Output Vital Signs (last 24 hours): Temp Pulse Resp BP Pulse Ox 97.6 F 80 16 122/76 99 07/12/17 23:20 07/12/17 23:20 07/12/17 23:20 07/12/17 23:20 07/12/17 23:20 Intake and Output: 07/13/17 07/13/17 06:59 18:59 Intake Total 200 Output Total 1 Balance 199 - Medications Medications: Current Medications Aspirin (Ecotrin) 81 mg PO DAILY [facility]PLAC[facility] BY [facility] Last Admin: 07/12/17 12:18 Dose: Not Given Donepezil HCl (Aricept) 10 mg PO HS REPLACED BY [facility] Last Admin: 07/12/17 21:32 Dose: 10 mg Famotidine (Pepcid) 20 mg PO DAILY [facility]PL[facility] BY [facility] Last Admin: 07/12/17 12:18 Dose: Not Given Folic Acid (Folic Acid) 1 mg PO DAILY REPLACED BY [facility] Heparin Sodium (Porcine) (Heparin) 5,000 units SC Q8 REPLACED BY [facility] Last Admin: 07/13/17 06:10 Dose: 5,000 units Losartan Potassium (Cozaar) 25 mg PO DAILY [facility]PL[facility] BY [facility] Last Admin: 07/12/17 12:18 Dose: Not Given Memantine (Namenda) 10 mg PO DAILY [facility]PL[facility] BY [facility] Last Admin: 07/12/17 12:18 Dose: Not Given Rosuvastatin Calcium (Crestor) 2.5 mg PO HS REPLACED BY [facility] Last Admin: 07/12/17 21:32 Dose: 2.5 mg - Labs Labs: 07/09/17 08:06 07/09/17 08:06 PT 11.8 SECONDS (9.7-12.2) 06/21/17 22:04 INR 1.1 06/21/17 22:04 APTT 32 SECONDS (21-34) 06/21/17 22:04 - Additional Findings Additional findings: - Constitutional Appears: No Acute Distress - Head Exam Head Exam: ATRAUMATIC, NORMAL INSPECTION - Eye Exam Eye Exam: EOMI, Normal appearance - ENT Exam ENT Exam: Mucous Membranes Moist - Respiratory Exam Respiratory Exam: Clear to Ausculation Bilateral, NORMAL BREATHING PATTERN. absent: Rales, Rhonchi, Wheezes, Respiratory Distress - Cardiovascular Exam Cardiovascular Exam: REGULAR RHYTHM, +S1, +S2 - GI/Abdominal Exam GI & Abdominal Exam: Soft, Normal Bowel Sounds. absent: Distended, Firm, Tenderness - Extremities Exam Extremities Exam: Normal Inspection. absent: Calf Tenderness, Tenderness - Neurological Exam Neurological Exam: Alert, Awake, Oriented x3 - Psychiatric Exam Psychiatric exam: Normal Affect, Normal Mood - Skin Skin Exam: Dry, Intact, Normal Color, Warm Assessment and Plan (1) Dementia Status: Chronic (2) HTN (hypertension) Status: Chronic - Assessment and Plan (Free Text) Plan: (1) Dementia Neurology consulted, Dr. Manzanares, help appreciated * Brain MRI (07/09): ordered, no acute intracranial abnormality; mild chronic microangiopathic changes and mild-age related global parenchymal volume loss. * Vitamin B12, Folate, and TSH within normal range * Heavy metal screen: negative Medications: * Aricpet 10mg * Namenda 10mg bid 1:1 observation From previous admission: * CT scan of the head is negative * X-ray shows a apical granuloma * CT scan of the chest is negative and unremarkable * UDS is negative * RPR and HIV negative * UA: urine only + for ketones * Brain MRI (06/18/17): Limited motion degraded study. No evidence of acute hemorrhage or infarct. Minor chronic white matter ischemic changes are felt be present. Moderate generalized volume loss. (2) HTN (hypertension) - Continue home Cozaar 25mg (3) Prophylaxis - Pepcid 20mg - Heparin 5000 units sc q8h - SCDs - Heart Healthy diet Disposition: Patient was denied for placement at [place] assisted living facility. Pending approval for [facility] assisted living facility in [place]. Pending guardianship with Adult Protective Services of [facility]. <Gary Damon - Last Filed: 07/13/17 20:25> Objective - Vital Signs/Intake and Output Vital Signs (last 24 hours): Temp Pulse Resp BP Pulse Ox 97.6 F 81 20 130/86 97 07/13/17 16:25 07/13/17 16:25 07/13/17 16:25 07/13/17 16:25 07/13/17 16:25 Intake and Output: 07/13/17 07/14/17 18:59 06:59 Intake Total 400 Balance 400 - Medications Medications: Current Medications Aspirin (Ecotrin) 81 mg PO DAILY REPLACED BY [facility] Last Admin: 07/13/17 10:09 Dose: 81 mg Donepezil HCl (Aricept) 10 mg PO HS REPLACED BY [facility] Last Admin: 07/12/17 21:32 Dose: 10 mg Famotidine (Pepcid) 20 mg PO DAILY REPL[facility] Last Admin: 07/13/17 10:09 Dose: 20 mg Folic Acid (Folic Acid) 1 mg PO DAILY [facility]PL[facility]ED [facility] Last Admin: 07/13/17 10:09 Dose: 1 mg Losartan Potassium (Cozaar) 25 mg PO DAILY [facility]PL[facility] Last Admin: 07/13/17 10:08 Dose: 25 mg Memantine (Namenda) 10 mg PO DAILY REPLACED BY [facility] Last Admin: 07/13/17 10:09 Dose: 10 mg Rosuvastatin Calcium (Crestor) 2.5 mg PO HS REPLACED BY [facility] Last Admin: 07/12/17 21:32 Dose: 2.5 mg - Labs Labs: 07/09/17 08:06 07/09/17 08:06 PT 11.8 SECONDS (9.7-12.2) 06/21/17 22:04 INR 1.1 06/21/17 22:04 APTT 32 SECONDS (21-34) 06/21/17 22:04 Attending/Attestation - Attestation I have personally seen and examined this patient.: Yes I have fully participated in the care of the patient.: Yes I have reviewed all pertinent clinical information, including history, physical exam and plan: Yes Notes (Text): 07/13/17 20:24 Patient was seen and examined at 8:15 AM 07/13/17 358 A Exam, assessment and plan were thoroughly gone over with the resident. HEENT, Cardio, Resp, GI, Ext, CN exams were unremarkable Assessments: 1). Dimentia: Aricept, Namenda, Folic Acid, Crestor, ASA 2). Anemia: resolved 3). Hypokalemia: resolved 4). Abnormal Chest X Ray (Granuloma?): CT Chest was unremarkable 5). Impaired Fasting Glucose: HgBA1C was 5.7 6). HTN: Cozaar 7). Prophylaxis: Pepcid, SCD,Heparin, 1:1 observation for elopement risk MRI Brain without contrast showed NO acute intracranial abnormality, mild chronic microangiopathic changes, and mild age related global parenchymal Heavy Metal blood work up was negative. I spoke with Hat And Cap Opener Mary Carmen 07/09/17 and she explained that [facility] Adult Protective Services who applied for guardianship is making arrangements for placement. Gary Damon D.O.
--- NOTE | 2017-07-13 09:23 | CP.PCM.PN ---
Subjective - Date & Time of Evaluation Date of Evaluation: 07/13/17 Time of Evaluation: 09:21 - Subjective Subjective: was seen and examined at the bedside. He is alert and oriented to person and place, but not time. He denies any headache, dizziness, lightheadedness, nausea, or vomiting. He states of able to ambulate around his room and hallways. He remains on 1:1 sitter for patient safety. There was no untoward events overnight. Objective - Vital Signs/Intake and Output Vital Signs (last 24 hours): Temp Pulse Resp BP Pulse Ox 97.6 F 80 16 122/76 99 07/12/17 23:20 07/12/17 23:20 07/12/17 23:20 07/12/17 23:20 07/12/17 23:20 Intake and Output: 07/13/17 07/13/17 06:59 18:59 Intake Total 200 Output Total 1 Balance 199 - Medications Medications: Current Medications Aspirin (Ecotrin) 81 mg PO DAILY [facility] Last Admin: 07/12/17 12:18 Dose: Not Given Donepezil HCl (Aricept) 10 mg PO HS [facility] Last Admin: 07/12/17 21:32 Dose: 10 mg Famotidine (Pepcid) 20 mg PO DAILY [facility] Last Admin: 07/12/17 12:18 Dose: Not Given Folic Acid (Folic Acid) 1 mg PO DAILY [facility] Heparin Sodium (Porcine) (Heparin) 5,000 units SC Q8 [facility] Last Admin: 07/13/17 06:10 Dose: 5,000 units Losartan Potassium (Cozaar) 25 mg PO DAILY [facility] Last Admin: 07/12/17 12:18 Dose: Not Given Memantine (Namenda) 10 mg PO DAILY [facility] Last Admin: 07/12/17 12:18 Dose: Not Given Rosuvastatin Calcium (Crestor) 2.5 mg PO HS [facility] Last Admin: 07/12/17 21:32 Dose: 2.5 mg - Labs Labs: 07/09/17 08:06 07/09/17 08:06 PT 11.8 SECONDS (9.7-12.2) 06/21/17 22:04 INR 1.1 06/21/17 22:04 APTT 32 SECONDS (21-34) 06/21/17 22:04 - Constitutional Appears: No Acute Distress - Head Exam Head Exam: ATRAUMATIC - Neurological Exam Neurological Exam: Alert, Awake, CN II-XII Intact, Normal Gait Neuro motor strength exam: Left Upper Extremity: 5, Right Upper Extremity: 5, Left Lower Extremity: 5, Right Lower Extremity: 5 Additional comments: Neurological unchanged from previous examination. Assessment and Plan (1) Dementia Assessment & Plan: Case discussed with Dr. Manzanares, continue all current medical regimen. Pending permanent placement due to his dementia. There is no new recommendation from neurology. Status: Chronic
[2017-07-13] MEDS: Rosuvastatin Calcium 2.5 mg Tab PO SCH (21:51)
--- NOTE | 2017-07-14 06:43 | CP.PCM.PN ---
<Marty Blevins - Last Filed: 07/14/17 12:04> Subjective - Date & Time of Evaluation Date of Evaluation: 07/14/17 Time of Evaluation: 07:30 - Subjective Subjective: Medicine note- Dr. Damon's service Patient was seen and examined at bedside. Patient reports no acute complaints at this time. Patient is oriented to time, place and self. No events overnight , per nursing. Objective - Vital Signs/Intake and Output Vital Signs (last 24 hours): Temp Pulse Resp BP Pulse Ox 97.8 F 85 20 129/82 98 07/14/17 00:16 07/14/17 00:16 07/14/17 00:16 07/14/17 00:16 07/14/17 00:16 Intake and Output: 07/13/17 07/14/17 18:59 06:59 Intake Total 400 0 Balance 400 0 - Medications Medications: Current Medications Aspirin (Ecotrin) 81 mg PO DAILY [facility] Last Admin: 07/13/17 10:09 Dose: 81 mg Donepezil HCl (Aricept) 10 mg PO [facility] Last Admin: 07/13/17 21:51 Dose: 10 mg Famotidine (Pepcid) 20 mg PO DAILY [facility] Last Admin: 07/13/17 10:09 Dose: 20 mg Folic Acid (Folic Acid) 1 mg PO DAILY [facility] Last Admin: 07/13/17 10:09 Dose: 1 mg Losartan Potassium (Cozaar) 25 mg PO DAILY [facility] Last Admin: 07/13/17 10:08 Dose: 25 mg Memantine (Namenda) 10 mg PO DAILY [facility] Last Admin: 07/13/17 10:09 Dose: 10 mg Rosuvastatin Calcium (Crestor) 2.5 mg PO [facility] Last Admin: 07/13/17 21:51 Dose: 2.5 mg - Labs Labs: 07/09/17 08:06 07/09/17 08:06 PT 11.8 SECONDS (9.7-12.2) 06/21/17 22:04 INR 1.1 06/21/17 22:04 APTT 32 SECONDS (21-34) 06/21/17 22:04 - Constitutional Appears: Non-toxic, No Acute Distress - Head Exam Head Exam: ATRAUMATIC, NORMAL INSPECTION, NORMOCEPHALIC - Eye Exam Pupil Exam: NORMAL ACCOMODATION, PERRL - ENT Exam ENT Exam: Mucous Membranes Moist - Respiratory Exam Respiratory Exam: Clear to Ausculation Bilateral, NORMAL BREATHING PATTERN. absent: Prolonged Expiratory Phase, Rales, Rhonchi, Wheezes - Cardiovascular Exam Cardiovascular Exam: REGULAR RHYTHM, +S1, +S2 - GI/Abdominal Exam GI & Abdominal Exam: Soft, Normal Bowel Sounds. absent: Tenderness, Diminished Bowel Sounds, Hernia, Hypoactive Bowel Sounds - Extremities Exam Extremities Exam: Normal Capillary Refill - Neurological Exam Neurological Exam: Alert, Awake, Oriented x3 - Psychiatric Exam Psychiatric exam: Normal Affect, Normal Mood - Skin Skin Exam: Dry, Intact, Normal Color, Warm Assessment and Plan - Assessment and Plan (Free Text) Assessment: (1) Dementia Neurology consulted, Dr. Manzanares, help appreciated * Brain MRI (07/09): ordered, no acute intracranial abnormality; mild chronic microangiopathic changes and mild-age related global parenchymal volume loss. * Vitamin B12, Folate, and TSH within normal range * Heavy metal screen: negative Medications: * Aricpet 10mg * Namenda 10mg bid 1:1 observation From previous admission: * CT scan of the head is negative * X-ray shows a apical granuloma * CT scan of the chest is negative and unremarkable * UDS is negative * RPR and HIV negative * UA: urine only + for ketones * Brain MRI (06/18/17): Limited motion degraded study. No evidence of acute hemorrhage or infarct. Minor chronic white matter ischemic changes are felt be present. Moderate generalized volume loss. (2) HTN (hypertension) - Continue home Cozaar 25mg (3) Prophylaxis - Pepcid 20mg - Heparin 5000 units sc q8h - SCDs - Heart Healthy diet Disposition: Patient was denied for placement at [facility]. Pending approval for [facility] assisted living facility in [place]. Pending guardianship with Adult Protective Services of [facility]. <Gary Damon - Last Filed: 07/14/17 20:18> Objective - Vital Signs/Intake and Output Vital Signs (last 24 hours): Temp Pulse Resp BP Pulse Ox 98.0 F 72 20 113/77 99 07/14/17 15:00 07/14/17 15:00 07/14/17 15:00 07/14/17 15:00 07/14/17 15:00 - Medications Medications: Current Medications Aspirin (Ecotrin) 81 mg PO DAILY [facility] Last Admin: 07/14/17 09:35 Dose: 81 mg Donepezil HCl (Aricept) 10 mg PO HS [facility] Last Admin: 07/13/17 21:51 Dose: 10 mg Famotidine (Pepcid) 20 mg PO DAILY [facility] Last Admin: 07/14/17 09:35 Dose: 20 mg Folic Acid (Folic Acid) 1 mg PO DAILY [facility] Last Admin: 07/14/17 09:35 Dose: 1 mg Losartan Potassium (Cozaar) 25 mg PO DAILY [facility] Last Admin: 07/14/17 09:36 Dose: 25 mg Memantine (Namenda) 10 mg PO DAILY [facility] Last Admin: 07/14/17 09:35 Dose: 10 mg Rosuvastatin Calcium (Crestor) 2.5 mg PO HS [facility] Last Admin: 07/13/17 21:51 Dose: 2.5 mg - Labs Labs: 07/09/17 08:06 07/09/17 08:06 PT 11.8 SECONDS (9.7-12.2) 06/21/17 22:04 INR 1.1 06/21/17 22:04 APTT 32 SECONDS (21-34) 06/21/17 22:04 Attending/Attestation - Attestation I have personally seen and examined this patient.: Yes I have fully participated in the care of the patient.: Yes I have reviewed all pertinent clinical information, including history, physical exam and plan: Yes Notes (Text): 07/14/17 20:17 Patient was seen and examined at 10:00 AM 07/14/17 358 A Exam, assessment and plan were thoroughly gone over with the resident. HEENT, Cardio, Resp, GI, Ext, CN exams were unremarkable Assessments: 1). Dimentia: Aricept, Namenda, Folic Acid, Crestor, ASA 2). Anemia: resolved 3). Hypokalemia: resolved 4). Abnormal Chest X Ray (Granuloma?): CT Chest was unremarkable 5). Impaired Fasting Glucose: HgBA1C was 5.7 6). HTN: Cozaar 7). Prophylaxis: Pepcid, SCD,Heparin, 1:1 observation for elopement risk MRI Brain without contrast showed NO acute intracranial abnormality, mild chronic microangiopathic changes, and mild age related global parenchymal Heavy Metal blood work up was negative. I spoke with Card Seller Mary Carmen 07/09/17 and she explained that [facility] Adult Protective Services who applied for guardianship is making arrangements for placement. Gary Damon D.O.
[2017-07-14] MEDS: Rosuvastatin Calcium 2.5 mg Tab PO SCH (21:04)
--- NOTE | 2017-07-15 00:23 | CP.PCM.PN ---
<Dillon Pascual E - Last Filed: 07/15/17 00:18> Subjective - Date & Time of Evaluation Date of Evaluation: 07/15/17 Time of Evaluation: 00:10 - Subjective Subjective: Medicine hospitalist note----> DR. Janna Damon's service Patient was seen and examined at bedside with a very pleasant attitude. Patient was resting comfortably in bed. Patient states that he is doing well and has no complaints. Patient denies any discomfort or pain. Objective - Vital Signs/Intake and Output Vital Signs (last 24 hours): Temp Pulse Resp BP Pulse Ox 97.9 F 65 20 131/84 95 07/14/17 23:24 07/14/17 23:24 07/14/17 23:24 07/14/17 23:24 07/14/17 23:24 - Medications Medications: Current Medications Aspirin (Ecotrin) 81 mg PO DAILY [facility] Last Admin: 07/14/17 09:35 Dose: 81 mg Donepezil HCl (Aricept) 10 mg PO [facility] Last Admin: 07/14/17 21:03 Dose: 10 mg Famotidine (Pepcid) 20 mg PO DAILY [facility] Last Admin: 07/14/17 09:35 Dose: 20 mg Folic Acid (Folic Acid) 1 mg PO DAILY [facility] Last Admin: 07/14/17 09:35 Dose: 1 mg Losartan Potassium (Cozaar) 25 mg PO DAILY [facility] Last Admin: 07/14/17 09:36 Dose: 25 mg Memantine (Namenda) 10 mg PO DAILY [facility] Last Admin: 07/14/17 09:35 Dose: 10 mg Rosuvastatin Calcium (Crestor) 2.5 mg PO [facility] Last Admin: 07/14/17 21:04 Dose: 2.5 mg - Labs Labs: 07/09/17 08:06 07/09/17 08:06 PT 11.8 SECONDS (9.7-12.2) 06/21/17 22:04 INR 1.1 06/21/17 22:04 APTT 32 SECONDS (21-34) 06/21/17 22:04 - Constitutional Appears: Well, No Acute Distress - Head Exam Head Exam: ATRAUMATIC, NORMOCEPHALIC - Eye Exam Eye Exam: EOMI, Normal appearance - ENT Exam ENT Exam: Mucous Membranes Moist - Respiratory Exam Respiratory Exam: Clear to Ausculation Bilateral, NORMAL BREATHING PATTERN. absent: Decreased Breath Sounds, Rales, Rhonchi, Wheezes - Cardiovascular Exam Cardiovascular Exam: REGULAR RHYTHM, +S1, +S2. absent: Murmur - GI/Abdominal Exam GI & Abdominal Exam: Soft, Normal Bowel Sounds. absent: Distended, Guarding, Rigid, Tenderness - Extremities Exam Extremities Exam: Normal Inspection. absent: Calf Tenderness, Pedal Edema, Tenderness - Neurological Exam Neurological Exam: Alert, Awake, Oriented x3 - Psychiatric Exam Psychiatric exam: Normal Affect, Normal Mood - Skin Skin Exam: Normal Color, Warm Assessment and Plan (1) Dementia Assessment & Plan: Neurology consulted, Dr. Manzanares, help appreciated * Brain MRI (07/09): ordered, no acute intracranial abnormality; mild chronic microangiopathic changes and mild-age related global parenchymal volume loss. * Vitamin B12, Folate, and TSH within normal range * Heavy metal screen: negative Medications: * Aricpet 10mg * Namenda 10mg bid * Folic acid 1 tab PO daily * Crestor 2.5mg PO HS * Aspirin 81mg PO daily 1:1 observation From previous admission: * CT scan of the head is negative * X-ray shows a apical granuloma * CT scan of the chest is negative and unremarkable; imaging to follow up an abnormal chest x-ray * UDS is negative * RPR and HIV negative * UA: urine only + for ketones * Brain MRI (06/18/17): Limited motion degraded study. No evidence of acute hemorrhage or infarct. Minor chronic white matter ischemic changes are felt be present. Moderate generalized volume loss. Status: Chronic (2) Glucose intolerance (impaired glucose tolerance) Assessment & Plan: HgbA1C: 5.7 Continue to monitor random glucose with am labs Status: Acute (3) Hypertension Assessment & Plan: - Continue home Cozaar 25mg PO daily Status: Acute (4) Prophylactic measure Assessment & Plan: - Pepcid 20mg - Heparin 5000 units sc q8h - SCDs - Heart Healthy diet Disposition: Patient was denied for placement at [facility] assisted living facility. Pending approval for [facility] assisted living facility in [place]. At this moment, patient is pending guardianship with [facility] Protective [facility] of [facility]. Status: Acute <Gary Damon - Last Filed: 07/15/17 18:14> Objective - Vital Signs/Intake and Output Vital Signs (last 24 hours): Temp Pulse Resp BP Pulse Ox 98.2 F 64 20 101/67 99 07/15/17 15:00 07/15/17 15:00 07/15/17 15:00 07/15/17 15:00 07/15/17 15:00 Intake and Output: 07/15/17 07/15/17 06:59 18:59 Intake Total 150 500 Balance 150 500 - Medications Medications: Current Medications Aspirin (Ecotrin) 81 mg PO DAILY [facility] Last Admin: 07/15/17 09:54 Dose: 81 mg Donepezil HCl (Aricept) 10 mg PO HS [facility] Last Admin: 07/14/17 21:03 Dose: 10 mg Famotidine (Pepcid) 20 mg PO DAILY [facility] Last Admin: 07/15/17 09:54 Dose: 20 mg Folic Acid (Folic Acid) 1 mg PO DAILY [facility] Last Admin: 07/15/17 09:54 Dose: 1 mg Losartan Potassium (Cozaar) 25 mg PO DAILY [facility] Last Admin: 07/15/17 09:54 Dose: 25 mg Memantine (Namenda) 10 mg PO DAILY [facility] Last Admin: 07/15/17 09:54 Dose: 10 mg Rosuvastatin Calcium (Crestor) 2.5 mg PO HS [facility] Last Admin: 07/14/17 21:04 Dose: 2.5 mg - Labs Labs: 07/09/17 08:06 07/09/17 08:06 PT 11.8 SECONDS (9.7-12.2) 06/21/17 22:04 INR 1.1 06/21/17 22:04 APTT 32 SECONDS (21-34) 06/21/17 22:04 Attending/Attestation - Attestation I have personally seen and examined this patient.: Yes I have fully participated in the care of the patient.: Yes I have reviewed all pertinent clinical information, including history, physical exam and plan: Yes Notes (Text): 07/15/17 18:13 Patient was seen and examined at 3:20 AM 07/15/17 358 A Exam, assessment and plan were thoroughly gone over with the resident. HEENT, Cardio, Resp, GI, Ext, CN exams were unremarkable Assessments: 1). Dimentia: Aricept, Namenda, Folic Acid, Crestor, ASA 2). Anemia: resolved 3). Hypokalemia: resolved 4). Abnormal Chest X Ray (Granuloma?): CT Chest was unremarkable 5). Impaired Fasting Glucose: HgBA1C was 5.7 6). HTN: Cozaar 7). Prophylaxis: Pepcid, SCD,Heparin, 1:1 observation for elopement risk MRI Brain without contrast showed NO acute intracranial abnormality, mild chronic microangiopathic changes, and mild age related global parenchymal Heavy Metal blood work up was negative. I spoke with [employer] Mary Carmen 07/09/17 and she explained that [facility] Services who applied for guardianship is making arrangements for placement. Gary Damon D.O.
[2017-07-15] MEDS: Rosuvastatin Calcium 2.5 mg Tab PO SCH (21:10)
[2017-07-16 07:52] LABS: BASO % 0.3 % (0.0-2.0); EOS # 0.1 K/uL (0.0-0.7); EOS % 1.9 % (0.0-4.0); HEMOGLOBIN 13.9 g/dL (12.0-18.0); LYMPH # 1.3 K/uL (1.0-4.3); LYMPH % 25.3 % (20.0-40.0); MEAN CELL VOLUME 93.4 fL (80.0-94.0); MEAN CORPUSCULAR HEMOGLOBIN 32.2 pg (27.0-31.0); MEAN CORPUSCULAR HGB CONC 34.5 g/dL (33.0-37.0); MEAN PLATELET VOLUME 7.2 fL (7.2-11.7); MONO # 0.5 K/uL (0.0-0.8); MONO % 10.2 % (0.0-10.0); NEUT # 3.3 K/uL (1.8-7.0); NEUT % 62.3 % (50.0-75.0); NRBC % 0.1 % (0.0-2.0); RBC 4.33 Mil/uL (4.40-5.90); RED CELL DISTRIBUTION WIDTH 12.8 % (11.5-14.5); WHITE BLOOD COUNT 5.3 K/uL (4.8-10.8)
[2017-07-16 08:06] LABS: ALB/GLOB RATIO 1.6 (1.0-2.1); ALBUMIN 3.7 g/dL (3.5-5.0); ALT/SGPT 63 U/L (21-72); AST/SGOT 30 U/L (17-59); BLOOD UREA NITROGEN 18 mg/dL (9-20); CALCIUM 8.2 mg/dl (8.6-10.4); GFR AFRICAN-AMERICAN > 60; GFR NON-AFRICAN AMERICAN > 60
--- NOTE | 2017-07-16 08:46 | CP.PCM.PN ---
<Tabitha Charles - Last Filed: 07/16/17 15:19> Subjective - Date & Time of Evaluation Date of Evaluation: 07/16/17 Time of Evaluation: 08:45 - Subjective Subjective: Medicine Progress Note: Hospitalist Service Patient seen and examined at bedside. Per nursing no acute events overnight. Patient is doing well, pleasant, offers no complaints at this time. Denies headaches, dizziness, cp, palpitations, sob, urinary symptoms, changes in bowel habits. Objective - Vital Signs/Intake and Output Vital Signs (last 24 hours): Temp Pulse Resp BP Pulse Ox 97.7 F 60 20 114/75 96 07/15/17 23:16 07/15/17 23:16 07/15/17 23:16 07/15/17 23:16 07/15/17 23:16 Intake and Output: 07/16/17 07/16/17 06:59 18:59 Intake Total 400 Balance 400 - Medications Medications: Current Medications Aspirin (Ecotrin) 81 mg PO DAILY [facility] Last Admin: 07/15/17 09:54 Dose: 81 mg Donepezil HCl (Aricept) 10 mg PO [facility] Last Admin: 07/15/17 21:10 Dose: 10 mg Famotidine (Pepcid) 20 mg PO DAILY [facility] Last Admin: 07/15/17 09:54 Dose: 20 mg Folic Acid (Folic Acid) 1 mg PO DAILY [facility] Last Admin: 07/15/17 09:54 Dose: 1 mg Losartan Potassium (Cozaar) 25 mg PO DAILY [facility] Last Admin: 07/15/17 09:54 Dose: 25 mg Memantine (Namenda) 10 mg PO DAILY [facility] Last Admin: 07/15/17 09:54 Dose: 10 mg Rosuvastatin Calcium (Crestor) 2.5 mg PO [facility] Last Admin: 07/15/17 21:10 Dose: 2.5 mg - Labs Labs: 07/16/17 07:34 07/16/17 07:34 PT 11.8 SECONDS (9.7-12.2) 06/21/17 22:04 INR 1.1 06/21/17 22:04 APTT 32 SECONDS (21-34) 06/21/17 22:04 - Constitutional Appears: Well, No Acute Distress - Head Exam Head Exam: ATRAUMATIC, NORMAL INSPECTION - Eye Exam Eye Exam: EOMI, Normal appearance - ENT Exam ENT Exam: Mucous Membranes Moist - Neck Exam Neck Exam: Full ROM - Respiratory Exam Respiratory Exam: Clear to Ausculation Bilateral, NORMAL BREATHING PATTERN. absent: Rales, Rhonchi, Wheezes - Cardiovascular Exam Cardiovascular Exam: REGULAR RHYTHM, +S1, +S2. absent: Murmur - GI/Abdominal Exam GI & Abdominal Exam: Soft, Normal Bowel Sounds. absent: Tenderness - Back Exam Back Exam: NORMAL INSPECTION - Neurological Exam Neurological Exam: Alert, Awake. absent: Oriented x3 (Oriented to person and place) - Psychiatric Exam Psychiatric exam: Normal Affect, Normal Mood - Skin Skin Exam: Dry, Normal Color, Warm Assessment and Plan (1) Dementia Assessment & Plan: -Patient oriented to person, place and time this morning -Continue Namenda 10mg daily -Continue Aricept 10mg HS -Continue Crestor 2.5mg, ASA 81mg, Folic acid daily -Vitamin B12, Folate, and TSH within normal range -Heavy metal screen: negative -Elopement risk, will continue 1:1 observation -Neurology on consult, f/u recommendations -Patient currently has temporary guardianship, currently await placement at assisted living facility -Will follow up with case management Imaging: -Brain MRI (07/09): ordered, no acute intracranial abnormality; mild chronic microangiopathic changes and mild-age related global parenchymal volume loss. Status: Chronic (2) Glucose intolerance (impaired glucose tolerance) Assessment & Plan: -HA1C: 5.7 -Random glucose: 93 -Will continue to monitor Status: Acute (3) Hypertension Assessment & Plan: -Currently normatensive -Continue Cozaar 25mg daily Status: Chronic (4) Anemia Assessment & Plan: -Hgb stable and at baseline -Will monitor labs qweekly Status: Resolved (5) Prophylactic measure Assessment & Plan: -Pepcid 20mg PO daily -Heparin 5000U SC Q8H Status: Acute <Tamera Sawyer V - Last Filed: 07/16/17 21:57> Objective - Vital Signs/Intake and Output Vital Signs (last 24 hours): Temp Pulse Resp BP Pulse Ox 97.5 F L 66 20 123/79 98 07/16/17 15:56 07/16/17 15:56 07/16/17 15:56 07/16/17 15:56 07/16/17 15:56 Intake and Output: 07/16/17 07/17/17 18:59 06:59 Intake Total 500 Balance 500 - Medications Medications: Current Medications Aspirin (Ecotrin) 81 mg PO DAILY [facility] Last Admin: 07/16/17 09:50 Dose: 81 mg Donepezil HCl (Aricept) 10 mg PO HS [facility] Last Admin: 07/16/17 21:22 Dose: 10 mg Famotidine (Pepcid) 20 mg PO DAILY [facility] Last Admin: 07/16/17 09:50 Dose: 20 mg Folic Acid (Folic Acid) 1 mg PO DAILY [facility] Last Admin: 07/16/17 09:50 Dose: 1 mg Heparin Sodium (Porcine) (Heparin) 5,000 units SC Q8 [facility] Last Admin: 07/16/17 21:22 Dose: 5,000 units Losartan Potassium (Cozaar) 25 mg PO DAILY [facility] Last Admin: 07/16/17 09:50 Dose: 25 mg Memantine (Namenda) 10 mg PO DAILY [facility] Last Admin: 07/16/17 09:50 Dose: 10 mg Rosuvastatin Calcium (Crestor) 2.5 mg PO [facility] Last Admin: 07/16/17 21:22 Dose: 2.5 mg - Labs Labs: 07/16/17 07:34 07/16/17 07:34 PT 11.8 SECONDS (9.7-12.2) 06/21/17 22:04 INR 1.1 06/21/17 22:04 APTT 32 SECONDS (21-34) 06/21/17 22:04 Attending/Attestation - Attestation I have personally seen and examined this patient.: Yes I have fully participated in the care of the patient.: Yes I have reviewed all pertinent clinical information, including history, physical exam and plan: Yes Notes (Text): Patient seen, examined, and case discussed with day-time resident. Patient reports today is [birth year] 18, 2015, but was able to self-correct on the year. Reports tomorrow is his birthday which he is correct. and reports the President is [place] [place] and expresses great disgust. Awaiting guardianship and placement. 1.) Family History of Alzheimer's Disease Early Onset of Dementia * Family Hx: patient had Alzheimer's Disease at age 71 * Patient was told by a neurologist he has early signs of dementia * Psych consult Dr. Valente --> help appreciated * CT scan of the head is negative * X-ray shows a apical granuloma * Neurology Dr. Manzanares-->help appreciated * Completed EEG 07/07/17 * Discussed patient may complete further workup as outpatient. * negative heavy metal screen * Discussed with Dr. manzanares 07/07 * Repeat MRI 07/09: no acute intracranial abnormality. Mild chronic microangiopathic changes and mild age-related global parenchymal volume loss. Please note workup is in prior admission when patient eloped on discharge. * CT scan of the chest is negative and unremarkable * UDS is negative * UA: urine only + for ketones * Brain MRI: Limited motion degraded study. No evidence of acute hemorrhage or infarct. Minor chronic white matter ischemic changes are felt be present. Moderate generalized volume loss. * RPR: nonreactive * HIV: negative * TSH: within normal and repeat within normal * Folate: normal and repeat within normal * B12: normal and repeat within normal * Recommended to patient to follow-up with neurology outpatient and to establish care in the [facility] clinic upon discharge Medications: * Aricept 10mg PO qHS * Namenda 10mg bid * Folic acid 1mg PO daily * Crestor 2.5mg PO HS 2.) Anemia-->Resolved * Within normal * Monitor 3.) Hypokalemia-->resolved * resolved 4) Abnormal Chest xray-->resolved * CT Chest: no acute pathology noted; official report in the computer 5.) Impaired glucose tolerance * Hgba1c: 5.7 * Will need check in one year for a1c to prevent over diabetes 6.) HTN-->Chronic * continue home Cozaar 25mg PO daily * Aspirin 81mg PO daily * 2 gram diet 7.) Prophylaxis * Pepcid 20mg PO BID * Heparin 5000 units sc q8h * SCDs Disposition: pending approval to assisted living facility called [facility] and following temporary guardianship--per latest case management note.
--- NOTE | 2017-07-16 09:14 | CP.PCM.PN ---
Subjective - Date & Time of Evaluation Date of Evaluation: 07/16/17 Time of Evaluation: 09:12 - Subjective Subjective: Mr. Nelson was seen and examined at the bedside. He is alert, oriented to place and person, but not time. He denies any dizziness, lightheadedness, blurred vision, numbness, nausea, or vomiting. He remains on 1;1 sitter for patient safety. There was no untoward events overnight. Objective - Vital Signs/Intake and Output Vital Signs (last 24 hours): Temp Pulse Resp BP Pulse Ox 97.7 F 60 20 114/75 96 07/15/17 23:16 07/15/17 23:16 07/15/17 23:16 07/15/17 23:16 07/15/17 23:16 Intake and Output: 07/16/17 07/16/17 06:59 18:59 Intake Total 400 Balance 400 - Medications Medications: Current Medications Aspirin (Ecotrin) 81 mg PO DAILY [facility] Last Admin: 07/15/17 09:54 Dose: 81 mg Donepezil HCl (Aricept) 10 mg PO HS [facility] Last Admin: 07/15/17 21:10 Dose: 10 mg Famotidine (Pepcid) 20 mg PO DAILY [facility] Last Admin: 07/15/17 09:54 Dose: 20 mg Folic Acid (Folic Acid) 1 mg PO DAILY [facility] Last Admin: 07/15/17 09:54 Dose: 1 mg Heparin Sodium (Porcine) (Heparin) 5,000 units SC Q8 [facility] Losartan Potassium (Cozaar) 25 mg PO DAILY [facility] Last Admin: 07/15/17 09:54 Dose: 25 mg Memantine (Namenda) 10 mg PO DAILY [facility] Last Admin: 07/15/17 09:54 Dose: 10 mg Rosuvastatin Calcium (Crestor) 2.5 mg PO HS [facility] Last Admin: 07/15/17 21:10 Dose: 2.5 mg - Labs Labs: 07/16/17 07:34 07/16/17 07:34 PT 11.8 SECONDS (9.7-12.2) 06/21/17 22:04 INR 1.1 06/21/17 22:04 APTT 32 SECONDS (21-34) 06/21/17 22:04 - Constitutional Appears: No Acute Distress - Head Exam Head Exam: ATRAUMATIC - Neurological Exam Neurological Exam: Alert, Awake Neuro motor strength exam: Left Upper Extremity: 5, Right Upper Extremity: 5, Left Lower Extremity: 5, Right Lower Extremity: 5 Additional comments: Neurological examination from previous examination. Assessment and Plan (1) Dementia Assessment & Plan: Case discussed with Dr. Manzanares, continue all current medical regimen. There is no new recommendation from neurology. Status: Chronic
[2017-07-16] MEDS: Rosuvastatin Calcium 2.5 mg Tab PO SCH (21:22)
--- NOTE | 2017-07-17 10:41 | CP.PCM.PN ---
<Tabitha Charles - Last Filed: 07/17/17 14:14> Subjective - Date & Time of Evaluation Date of Evaluation: 07/17/17 Time of Evaluation: 10:39 - Subjective Subjective: Medicine Progress Note: Hospitalist Service Patient seen and examined at bedside. Per nursing no acute events overnight. Patient is doing well, offers no complaints at this time. Patient is awake, alert, orientated to person, place, time. Patient knows that today is his birthday, but believes that he is age 61 now. Denies headaches, dizziness, cp, palpitations, sob, abdominal pain, urinary symptoms, changes in bowel habits. Objective - Vital Signs/Intake and Output Vital Signs (last 24 hours): Temp Pulse Resp BP Pulse Ox 98.1 F 84 20 114/77 97 07/17/17 08:00 07/17/17 08:00 07/17/17 08:00 07/17/17 08:00 07/17/17 08:00 Intake and Output: 07/17/17 07/17/17 06:59 18:59 Intake Total 440 Balance 440 - Medications Medications: Current Medications Aspirin (Ecotrin) 81 mg PO DAILY [facility] Last Admin: 07/17/17 10:11 Dose: 81 mg Donepezil HCl (Aricept) 10 mg PO HS [facility] Last Admin: 07/16/17 21:22 Dose: 10 mg Famotidine (Pepcid) 20 mg PO DAILY [facility] Last Admin: 07/17/17 10:11 Dose: 20 mg Folic Acid (Folic Acid) 1 mg PO DAILY [facility] Last Admin: 07/17/17 10:11 Dose: 1 mg Heparin Sodium (Porcine) (Heparin) 5,000 units SC Q8 [facility] Last Admin: 07/17/17 05:21 Dose: 5,000 units Losartan Potassium (Cozaar) 25 mg PO DAILY [facility] Last Admin: 07/17/17 10:11 Dose: 25 mg Memantine (Namenda) 10 mg PO DAILY [facility] Last Admin: 07/17/17 10:11 Dose: 10 mg Rosuvastatin Calcium (Crestor) 2.5 mg PO HS [facility] Last Admin: 07/16/17 21:22 Dose: 2.5 mg - Labs Labs: 07/16/17 07:34 07/16/17 07:34 PT 11.8 SECONDS (9.7-12.2) 06/21/17 22:04 INR 1.1 06/21/17 22:04 APTT 32 SECONDS (21-34) 06/21/17 22:04 - Constitutional Appears: Well, No Acute Distress - Head Exam Head Exam: ATRAUMATIC, NORMAL INSPECTION - Eye Exam Eye Exam: EOMI, Normal appearance - ENT Exam ENT Exam: Mucous Membranes Moist - Neck Exam Neck Exam: Full ROM - Respiratory Exam Respiratory Exam: Clear to Ausculation Bilateral, NORMAL BREATHING PATTERN. absent: Rales, Rhonchi, Wheezes - Cardiovascular Exam Cardiovascular Exam: REGULAR RHYTHM, +S1, +S2 - GI/Abdominal Exam GI & Abdominal Exam: Soft, Normal Bowel Sounds. absent: Guarding, Rigid, Tenderness - Extremities Exam Extremities Exam: Full ROM - Back Exam Back Exam: NORMAL INSPECTION - Neurological Exam Neurological Exam: Alert, Awake, CN II-XII Intact, Oriented x3 - Psychiatric Exam Psychiatric exam: Normal Affect, Normal Mood - Skin Skin Exam: Dry, Normal Color, Warm Assessment and Plan - Assessment and Plan (Free Text) Assessment: 1.) Family History of Alzheimer's Disease Early Onset of Dementia * Family Hx: patient had Alzheimer's Disease at age 71 * Patient was told by a neurologist he has early signs of dementia * Psych consult Dr. Valente --> help appreciated * CT scan of the head is negative * X-ray shows a apical granuloma * Neurology Dr. Manzanares-->help appreciated * Completed EEG 07/07/17 * Discussed patient may complete further workup as outpatient. * Negative heavy metal screen * Discussed with Dr. Manzanares 07/07 * Repeat MRI 07/09: no acute intracranial abnormality. Mild chronic microangiopathic changes and mild age-related global parenchymal volume loss. * No new recommendations from Neurology at this time * Elopement risk, will continue 1:1 observation Please note workup is in prior admission when patient eloped on discharge. * CT scan of the chest is negative and unremarkable * UDS is negative * UA: urine only + for ketones * Brain MRI: Limited motion degraded study. No evidence of acute hemorrhage or infarct. Minor chronic white matter ischemic changes are felt be present. Moderate generalized volume loss. * RPR: nonreactive * HIV: negative * TSH: within normal and repeat within normal * Folate: normal and repeat within normal * B12: normal and repeat within normal * Recommended to patient to follow-up with neurology outpatient and to establish care in the [facility] upon discharge Medications: * Aricept 10mg PO qHS * Namenda 10mg daily * Folic acid 1mg PO daily * Crestor 2.5mg PO HS 2.) Anemia-->Resolved * Within normal * Monitor 3.) Hypokalemia-->resolved * resolved 4) Abnormal Chest xray-->resolved * CT Chest: no acute pathology noted; official report in the computer 5.) Impaired glucose tolerance * Hgba1c: 5.7 * Will need check in one year for a1c to prevent over diabetes 6.) HTN-->Chronic * Continue home Cozaar 25mg PO daily * Aspirin 81mg PO daily * 2 gram diet 7.) Prophylaxis * Pepcid 20mg PO daily * Heparin 5000 units sc q8h * SCDs Disposition: Patient has temporary guardianship, currently awaiting placement at assisted living facility in [place] (per discussion with counter caser) <Tamera Sawyer V - Last Filed: 07/17/17 20:39> Objective - Vital Signs/Intake and Output Vital Signs (last 24 hours): Temp Pulse Resp BP Pulse Ox 97.3 F L 69 20 112/75 100 07/17/17 15:00 07/17/17 15:00 07/17/17 15:00 07/17/17 15:00 07/17/17 15:00 Intake and Output: 07/17/17 07/18/17 18:59 06:59 Intake Total 600 Balance 600 - Medications Medications: Current Medications Aspirin (Ecotrin) 81 mg PO DAILY [facility] Last Admin: 07/17/17 10:11 Dose: 81 mg Donepezil HCl (Aricept) 10 mg PO HS [facility] Last Admin: 07/16/17 21:22 Dose: 10 mg Famotidine (Pepcid) 20 mg PO DAILY [facility] Last Admin: 07/17/17 10:11 Dose: 20 mg Folic Acid (Folic Acid) 1 mg PO DAILY [facility] Last Admin: 07/17/17 10:11 Dose: 1 mg Heparin Sodium (Porcine) (Heparin) 5,000 units SC Q8 [facility] Last Admin: 07/17/17 14:06 Dose: 5,000 units Losartan Potassium (Cozaar) 25 mg PO DAILY [facility] Last Admin: 07/17/17 10:11 Dose: 25 mg Memantine (Namenda) 10 mg PO DAILY [facility] Last Admin: 07/17/17 10:11 Dose: 10 mg Rosuvastatin Calcium (Crestor) 2.5 mg PO HS [facility] Last Admin: 07/16/17 21:22 Dose: 2.5 mg - Labs Labs: 07/16/17 07:34 07/16/17 07:34 PT 11.8 SECONDS (9.7-12.2) 06/21/17 22:04 INR 1.1 06/21/17 22:04 APTT 32 SECONDS (21-34) 06/21/17 22:04 Attending/Attestation - Attestation I have personally seen and examined this patient.: Yes I have fully participated in the care of the patient.: Yes I have reviewed all pertinent clinical information, including history, physical exam and plan: Yes Notes (Text): Patient seen, examined and case discussed with day-time resident. Patient seen this morning. Patient able to say that today is her birthday which is true. Patient also continues to report great disgust for [employer]. Provided patient ajay coffee and one strawberry donut. Patient is very appreciative and happy. Discussed with social sciences professor, patient does have a temporary guardian in [place] but will need to find locations for assisting living. Will need to follow- up following conversation with social and guardian. 1.) Family History of Alzheimer's Disease Early Onset of Dementia * Family Hx: patient had Alzheimer's Disease at age 71 * Patient was told by a neurologist he has early signs of dementia * Psych consult Dr. Valente --> help appreciated * CT scan of the head is negative * X-ray shows a apical granuloma * Neurology Dr. Manzanares-->help appreciated * Completed EEG 07/07/17 * Discussed patient may complete further workup as outpatient. * negative heavy metal screen * Discussed with Dr. manzanares 07/07 * Repeat MRI 07/09: no acute intracranial abnormality. Mild chronic microangiopathic changes and mild age-related global parenchymal volume loss. Please note workup is in prior admission when patient eloped on discharge. * CT scan of the chest is negative and unremarkable * UDS is negative * UA: urine only + for ketones * Brain MRI: Limited motion degraded study. No evidence of acute hemorrhage or infarct. Minor chronic white matter ischemic changes are felt be present. Moderate generalized volume loss. * RPR: nonreactive * HIV: negative * TSH: within normal and repeat within normal * Folate: normal and repeat within normal * B12: normal and repeat within normal * Recommended to patient to follow-up with neurology outpatient and to establish care in the [facility] upon discharge Medications: * Aricept 10mg PO qHS * Namenda 10mg bid * Folic acid 1mg PO daily * Crestor 2.5mg PO HS 2.) Anemia-->Resolved * Within normal * Monitor 3.) Hypokalemia-->resolved * resolved 4) Abnormal Chest xray-->resolved * CT Chest: no acute pathology noted; official report in the computer 5.) Impaired glucose tolerance * Hgba1c: 5.7 * Will need check in one year for a1c to prevent over diabetes 6.) HTN-->Chronic * continue home Cozaar 25mg PO daily * Aspirin 81mg PO daily * 2 gram diet 7.) Prophylaxis * Pepcid 20mg PO BID * Heparin 5000 units sc q8h * SCDs * Court Appointed temporary guardian. Mr. Dangelo Thomas [phone]--> agreement to send patient to assisted living. however, this facility must be in [place] since [place] is from [place]. Disposition: pending approval to assisted living facility and following status of temporary guardianship--per latest case management note.
[2017-07-17] MEDS: Rosuvastatin Calcium 2.5 mg Tab PO SCH (21:26)
--- NOTE | 2017-07-18 09:19 | CP.PCM.PN ---
Subjective - Date & Time of Evaluation Date of Evaluation: 07/18/17 Time of Evaluation: 09:16 - Subjective Subjective: Mr. Nelson was seen and examined at the bedside. He is alert, oriented to person and place. He knows where to located the time inside his room.He denies any headache dizziness, lightheadedness, nausea, or vomiting. There was no untoward events overnight. Objective - Vital Signs/Intake and Output Vital Signs (last 24 hours): Temp Pulse Resp BP Pulse Ox 97.6 F 66 20 104/70 96 07/18/17 07:27 07/18/17 07:27 07/18/17 07:27 07/18/17 07:27 07/18/17 07:27 Intake and Output: 07/18/17 07/18/17 06:59 18:59 Intake Total 540 Balance 540 - Medications Medications: Current Medications Aspirin (Ecotrin) 81 mg PO DAILY [facility] Last Admin: 07/17/17 10:11 Dose: 81 mg Donepezil HCl (Aricept) 10 mg PO HS [facility] Last Admin: 07/17/17 21:26 Dose: 10 mg Famotidine (Pepcid) 20 mg PO DAILY [facility] Last Admin: 07/17/17 10:11 Dose: 20 mg Folic Acid (Folic Acid) 1 mg PO DAILY [facility] Last Admin: 07/17/17 10:11 Dose: 1 mg Heparin Sodium (Porcine) (Heparin) 5,000 units SC Q8 [facility] Last Admin: 07/18/17 05:55 Dose: 5,000 units Losartan Potassium (Cozaar) 25 mg PO DAILY [facility] Last Admin: 07/17/17 10:11 Dose: 25 mg Memantine (Namenda) 10 mg PO DAILY [facility] Last Admin: 07/17/17 10:11 Dose: 10 mg Rosuvastatin Calcium (Crestor) 2.5 mg PO HS [facility] Last Admin: 07/17/17 21:26 Dose: 2.5 mg - Labs Labs: 07/16/17 07:34 07/16/17 07:34 PT 11.8 SECONDS (9.7-12.2) 06/21/17 22:04 INR 1.1 06/21/17 22:04 APTT 32 SECONDS (21-34) 06/21/17 22:04 - Constitutional Appears: No Acute Distress - Head Exam Head Exam: ATRAUMATIC - Neurological Exam Neurological Exam: Alert, Awake Neuro motor strength exam: Left Upper Extremity: 5, Right Upper Extremity: 5, Left Lower Extremity: 5, Right Lower Extremity: 5 Additional comments: Neurological unchanged from previous examination. Assessment and Plan (1) Dementia Assessment & Plan: Case discussed with Dr. Manzanares, continue all current medical regimen. There is no new recommendation from neurology. Status: Chronic
--- NOTE | 2017-07-18 09:57 | CP.PCM.PN ---
<Tabitha Charles - Last Filed: 07/18/17 12:28> Subjective - Date & Time of Evaluation Date of Evaluation: 07/18/17 Time of Evaluation: 09:55 - Subjective Subjective: Medicine Progress Note: Hospitalist Service Patient seen and examined at bedside. Per nursing no acute events overnight. Patient is doing well, offers no complaints at this time. Awake alert and orientated to person, place, and time. Denies headaches, dizziness, cp, palpitations, sob, urinary symptoms, changes in bowel habits. Objective - Vital Signs/Intake and Output Vital Signs (last 24 hours): Temp Pulse Resp BP Pulse Ox 97.6 F 66 20 104/70 96 07/18/17 07:27 07/18/17 07:27 07/18/17 07:27 07/18/17 07:27 07/18/17 07:27 Intake and Output: 07/18/17 07/18/17 06:59 18:59 Intake Total 540 Balance 540 - Medications Medications: Current Medications Aspirin (Ecotrin) 81 mg PO DAILY [facility] Last Admin: 07/18/17 09:27 Dose: 81 mg Donepezil HCl (Aricept) 10 mg PO HS [facility] Last Admin: 07/17/17 21:26 Dose: 10 mg Famotidine (Pepcid) 20 mg PO DAILY [facility] Last Admin: 07/18/17 09:27 Dose: 20 mg Folic Acid (Folic Acid) 1 mg PO DAILY [facility] Last Admin: 07/18/17 09:27 Dose: 1 mg Heparin Sodium (Porcine) (Heparin) 5,000 units SC Q8 [facility] Last Admin: 07/18/17 05:55 Dose: 5,000 units Losartan Potassium (Cozaar) 25 mg PO DAILY [facility] Last Admin: 07/18/17 09:27 Dose: 25 mg Memantine (Namenda) 10 mg PO DAILY [facility] Last Admin: 07/18/17 09:27 Dose: 10 mg Rosuvastatin Calcium (Crestor) 2.5 mg PO HS [facility] Last Admin: 07/17/17 21:26 Dose: 2.5 mg - Labs Labs: 07/16/17 07:34 07/16/17 07:34 PT 11.8 SECONDS (9.7-12.2) 06/21/17 22:04 INR 1.1 06/21/17 22:04 APTT 32 SECONDS (21-34) 06/21/17 22:04 - Constitutional Appears: Well, No Acute Distress - Head Exam Head Exam: ATRAUMATIC, NORMAL INSPECTION, NORMOCEPHALIC - Eye Exam Eye Exam: EOMI, Normal appearance - ENT Exam ENT Exam: Mucous Membranes Moist - Neck Exam Neck Exam: Full ROM - Respiratory Exam Respiratory Exam: Clear to Ausculation Bilateral, NORMAL BREATHING PATTERN. absent: Rales, Rhonchi, Wheezes - Cardiovascular Exam Cardiovascular Exam: REGULAR RHYTHM, +S1, +S2 - GI/Abdominal Exam GI & Abdominal Exam: Soft, Normal Bowel Sounds. absent: Guarding, Rigid, Tenderness - Extremities Exam Extremities Exam: Normal Inspection. absent: Calf Tenderness - Neurological Exam Neurological Exam: Alert, Awake, CN II-XII Intact, Normal Gait, Oriented x3 Neuro motor strength exam: Left Upper Extremity: 5, Right Upper Extremity: 5, Left Lower Extremity: 5, Right Lower Extremity: 5 - Psychiatric Exam Psychiatric exam: Normal Affect, Normal Mood - Skin Skin Exam: Dry, Normal Color, Warm Assessment and Plan - Assessment and Plan (Free Text) Assessment: 1.) Family History of Alzheimer's Disease Early Onset of Dementia * Family Hx: patient had Alzheimer's Disease at age 71 * Patient was told by a neurologist he has early signs of dementia * Psych consult Dr. Valente --> help appreciated * CT scan of the head is negative * X-ray shows a apical granuloma * Neurology Dr. Manzanares-->help appreciated * Completed EEG 07/07/17 * Discussed patient may complete further workup as outpatient. * Negative heavy metal screen * Discussed with Dr. Manzanares 07/07 * Repeat MRI 07/09: no acute intracranial abnormality. Mild chronic microangiopathic changes and mild age-related global parenchymal volume loss. * No new recommendations from Neurology at this time * Elopement risk, will continue 1:1 observation Please note workup is in prior admission when patient eloped on discharge. * CT scan of the chest is negative and unremarkable * UDS is negative * UA: urine only + for ketones * Brain MRI: Limited motion degraded study. No evidence of acute hemorrhage or infarct. Minor chronic white matter ischemic changes are felt be present. Moderate generalized volume loss. * RPR: nonreactive * HIV: negative * TSH: within normal and repeat within normal * Folate: normal and repeat within normal * B12: normal and repeat within normal * Recommended to patient to follow-up with neurology outpatient and to establish care in the [facility] upon discharge Medications: * Aricept 10mg PO qHS * Namenda 10mg daily * Folic acid 1mg PO daily * Crestor 2.5mg PO HS 2.) Anemia-->Resolved * Within normal * Monitor 3.) Hypokalemia-->resolved * resolved 4) Abnormal Chest xray-->resolved * CT Chest: no acute pathology noted; official report in the computer 5.) Impaired glucose tolerance * Hgba1c: 5.7 * Will need check in one year for a1c to prevent over diabetes 6.) HTN-->Chronic * Continue home Cozaar 25mg PO daily * Aspirin 81mg PO daily 7.) Prophylaxis * Pepcid 20mg PO daily * Heparin 5000 units sc q8h * SCDs Disposition: Patient has temporary guardianship, currently awaiting placement at assisted living facility in [place] (per discussion with disease case manager) <Tamera Sawyer V - Last Filed: 07/18/17 12:42> Objective - Vital Signs/Intake and Output Vital Signs (last 24 hours): Temp Pulse Resp BP Pulse Ox 97.6 F 66 20 104/70 96 07/18/17 07:27 07/18/17 07:27 07/18/17 07:27 07/18/17 07:27 07/18/17 07:27 Intake and Output: 07/18/17 07/18/17 06:59 18:59 Intake Total 540 Balance 540 - Medications Medications: Current Medications Aspirin (Ecotrin) 81 mg PO DAILY [facility] Last Admin: 07/18/17 09:27 Dose: 81 mg Donepezil HCl (Aricept) 10 mg PO HS [facility] Last Admin: 07/17/17 21:26 Dose: 10 mg Famotidine (Pepcid) 20 mg PO DAILY [facility] Last Admin: 07/18/17 09:27 Dose: 20 mg Folic Acid (Folic Acid) 1 mg PO DAILY [facility] Last Admin: 07/18/17 09:27 Dose: 1 mg Heparin Sodium (Porcine) (Heparin) 5,000 units SC Q8 [facility] Last Admin: 07/18/17 05:55 Dose: 5,000 units Losartan Potassium (Cozaar) 25 mg PO DAILY [facility] Last Admin: 07/18/17 09:27 Dose: 25 mg Memantine (Namenda) 10 mg PO DAILY [facility] Last Admin: 07/18/17 09:27 Dose: 10 mg Rosuvastatin Calcium (Crestor) 2.5 mg PO HS [facility] Last Admin: 07/17/17 21:26 Dose: 2.5 mg - Labs Labs: 07/16/17 07:34 07/16/17 07:34 PT 11.8 SECONDS (9.7-12.2) 06/21/17 22:04 INR 1.1 06/21/17 22:04 APTT 32 SECONDS (21-34) 06/21/17 22:04 Attending/Attestation - Attestation I have personally seen and examined this patient.: Yes I have fully participated in the care of the patient.: Yes I have reviewed all pertinent clinical information, including history, physical exam and plan: Yes Notes (Text): Patient seen, examined and case discussed with day-time resident. Patient seen this morning. Patient able to say that today yesterday was his birthday which is true. Patient also continues to report great disgust for [employer]. Provided patient ajay coffee was good but his donut was stale. Patient is very appreciative and happy. Patient recognizes me but does not identify me as a doctor. Discussed with addiction social worker, patient does have a temporary guardian in [place] but will need to find locations for assisting living. Will need to follow- up following conversation with social and guardian. 1.) Family History of Alzheimer's Disease Early Onset of Dementia * Family Hx: patient had Alzheimer's Disease at age 71 * Patient was told by a neurologist he has early signs of dementia * Psych consult Dr. Valente --> help appreciated * CT scan of the head is negative * X-ray shows a apical granuloma * Neurology Dr. Manzanares-->help appreciated * Completed EEG 07/07/17 * Discussed patient may complete further workup as outpatient. * negative heavy metal screen * Discussed with Dr. manzanares 07/07 * Repeat MRI 07/09: no acute intracranial abnormality. Mild chronic microangiopathic changes and mild age-related global parenchymal volume loss. Please note workup is in prior admission when patient eloped on discharge. * CT scan of the chest is negative and unremarkable * UDS is negative * UA: urine only + for ketones * Brain MRI: Limited motion degraded study. No evidence of acute hemorrhage or infarct. Minor chronic white matter ischemic changes are felt be present. Moderate generalized volume loss. * RPR: nonreactive * HIV: negative * TSH: within normal and repeat within normal * Folate: normal and repeat within normal * B12: normal and repeat within normal * Recommended to patient to follow-up with neurology outpatient and to establish care in the [facility] upon discharge Medications: * Aricept 10mg PO qHS * Namenda 10mg bid * Folic acid 1mg PO daily * Crestor 2.5mg PO HS 2.) Anemia-->Resolved * Within normal * Monitor 3.) Hypokalemia-->resolved * resolved 4) Abnormal Chest xray-->resolved * CT Chest: no acute pathology noted; official report in the computer 5.) Impaired glucose tolerance * Hgba1c: 5.7 * Will need check in one year for a1c to prevent over diabetes 6.) HTN-->Chronic * continue home Cozaar 25mg PO daily * Aspirin 81mg PO daily * 2 gram diet 7.) Prophylaxis * Pepcid 20mg PO BID * Heparin 5000 units sc q8h * SCDs * Court Appointed temporary guardian. Mr. Dangelo Thomas [phone]--> agreement to send patient to assisted living. however, this facility must be in [place] since [place] is [place]. Disposition: pending approval to assisted living facility and following status of temporary guardianship--per latest case management note.
[2017-07-18] MEDS: Rosuvastatin Calcium 2.5 mg Tab PO SCH (21:57)
--- NOTE | 2017-07-19 08:51 | CP.PCM.PN ---
Subjective - Date & Time of Evaluation Date of Evaluation: 07/19/17 Time of Evaluation: 08:48 - Subjective Subjective: Mr. Nelson was seen and examined at the bedside. He is alert, oriented in all spheres. He denies any headache, dizziness, lightheadedness, nausea, or vomiting. He further claims of having a great appetite. He remains on 1:1 sitter for patient safety. There was no untoward events overnight. Objective - Vital Signs/Intake and Output Vital Signs (last 24 hours): Temp Pulse Resp BP Pulse Ox 97.6 F 72 20 115/82 97 07/19/17 07:42 07/19/17 07:42 07/19/17 07:42 07/19/17 07:42 07/19/17 07:42 Intake and Output: 07/19/17 07/19/17 06:59 18:59 Intake Total 500 480 Balance 500 480 - Medications Medications: Current Medications Aspirin (Ecotrin) 81 mg PO DAILY [facility] Last Admin: 07/18/17 09:27 Dose: 81 mg Donepezil HCl (Aricept) 10 mg PO HS [facility] Last Admin: 07/18/17 21:57 Dose: 10 mg Famotidine (Pepcid) 20 mg PO DAILY [facility] Last Admin: 07/18/17 09:27 Dose: 20 mg Folic Acid (Folic Acid) 1 mg PO DAILY [facility] Last Admin: 07/18/17 09:27 Dose: 1 mg Heparin Sodium (Porcine) (Heparin) 5,000 units SC Q8 [facility] Last Admin: 07/19/17 06:33 Dose: 5,000 units Losartan Potassium (Cozaar) 25 mg PO DAILY [facility] Last Admin: 07/18/17 09:27 Dose: 25 mg Memantine (Namenda) 10 mg PO DAILY [facility] Last Admin: 07/18/17 09:27 Dose: 10 mg Rosuvastatin Calcium (Crestor) 2.5 mg PO HS [facility] Last Admin: 07/18/17 21:57 Dose: 2.5 mg - Labs Labs: 07/16/17 07:34 07/16/17 07:34 PT 11.8 SECONDS (9.7-12.2) 06/21/17 22:04 INR 1.1 06/21/17 22:04 APTT 32 SECONDS (21-34) 06/21/17 22:04 - Constitutional Appears: No Acute Distress - Head Exam Head Exam: ATRAUMATIC - Neurological Exam Neurological Exam: Alert, Awake, CN II-XII Intact, Oriented x3 Neuro motor strength exam: Left Upper Extremity: 5, Right Upper Extremity: 5, Left Lower Extremity: 5, Right Lower Extremity: 5 Additional comments: Neurological unchanged from previous examination. Assessment and Plan (1) Dementia Assessment & Plan: Case discussed with Dr. Manzanares, continue all current medical regimen. There is no new recommendations from neurology. Status: Chronic
--- NOTE | 2017-07-19 09:57 | CP.PCM.PN ---
<Tabitha Charles - Last Filed: 07/19/17 16:48> Subjective - Date & Time of Evaluation Date of Evaluation: 07/19/17 Time of Evaluation: 09:55 - Subjective Subjective: Medicine Progress Note: Hospitalist Service Patient seen and examined at bedside. Per nursing, no acute events overnight. Patient is doing well, offers no complaints at this time. Patient orientated to person and place, not time. Denies headaches, dizziness, cp, palpitations, sob, urinary symptoms, changes in bowel habits. Last BM was yesterday. Objective - Vital Signs/Intake and Output Vital Signs (last 24 hours): Temp Pulse Resp BP Pulse Ox 97.6 F 72 20 115/82 97 07/19/17 07:42 07/19/17 07:42 07/19/17 07:42 07/19/17 07:42 07/19/17 07:42 Intake and Output: 07/19/17 07/19/17 06:59 18:59 Intake Total 500 480 Balance 500 480 - Medications Medications: Current Medications Aspirin (Ecotrin) 81 mg PO DAILY [facility] Last Admin: 07/18/17 09:27 Dose: 81 mg Donepezil HCl (Aricept) 10 mg PO HS [facility] Last Admin: 07/18/17 21:57 Dose: 10 mg Famotidine (Pepcid) 20 mg PO DAILY [facility] Last Admin: 07/18/17 09:27 Dose: 20 mg Folic Acid (Folic Acid) 1 mg PO DAILY [facility] Last Admin: 07/18/17 09:27 Dose: 1 mg Heparin Sodium (Porcine) (Heparin) 5,000 units SC Q8 [facility] Last Admin: 07/19/17 06:33 Dose: 5,000 units Losartan Potassium (Cozaar) 25 mg PO DAILY [facility] Last Admin: 07/18/17 09:27 Dose: 25 mg Memantine (Namenda) 10 mg PO DAILY [facility] Last Admin: 07/18/17 09:27 Dose: 10 mg Rosuvastatin Calcium (Crestor) 2.5 mg PO HS [facility] Last Admin: 07/18/17 21:57 Dose: 2.5 mg - Labs Labs: 07/16/17 07:34 07/16/17 07:34 PT 11.8 SECONDS (9.7-12.2) 06/21/17 22:04 INR 1.1 06/21/17 22:04 APTT 32 SECONDS (21-34) 06/21/17 22:04 - Constitutional Appears: Well, No Acute Distress - Head Exam Head Exam: ATRAUMATIC, NORMAL INSPECTION - Eye Exam Eye Exam: EOMI, Normal appearance - Neck Exam Neck Exam: Full ROM - Respiratory Exam Respiratory Exam: Clear to Ausculation Bilateral, NORMAL BREATHING PATTERN. absent: Rales, Rhonchi, Wheezes - Cardiovascular Exam Cardiovascular Exam: REGULAR RHYTHM, +S1, +S2 - GI/Abdominal Exam GI & Abdominal Exam: Soft, Normal Bowel Sounds. absent: Guarding, Rigid, Tenderness - Extremities Exam Extremities Exam: Normal Inspection. absent: Calf Tenderness - Neurological Exam Neurological Exam: Alert, Awake, CN II-XII Intact, Oriented x3 - Psychiatric Exam Psychiatric exam: Normal Affect, Normal Mood - Skin Skin Exam: Dry, Normal Color, Warm Assessment and Plan - Assessment and Plan (Free Text) Assessment: 1.) Family History of Alzheimer's Disease Early Onset of Dementia * Family Hx: patient had Alzheimer's Disease at age 71 * Patient was told by a neurologist he has early signs of dementia * Psych consult Dr. Valente --> help appreciated * CT scan of the head is negative * X-ray shows a apical granuloma * Neurology Dr. Manzanares-->help appreciated * Completed EEG 07/07/17 * Discussed patient may complete further workup as outpatient. * Negative heavy metal screen * Discussed with Dr. Manzanares 07/07 * Repeat MRI 07/09: no acute intracranial abnormality. Mild chronic microangiopathic changes and mild age-related global parenchymal volume loss. * No new recommendations from Neurology at this time * Elopement risk, will continue 1:1 observation Please note workup is in prior admission when patient eloped on discharge. * CT scan of the chest is negative and unremarkable * UDS is negative * UA: urine only + for ketones * Brain MRI: Limited motion degraded study. No evidence of acute hemorrhage or infarct. Minor chronic white matter ischemic changes are felt be present. Moderate generalized volume loss. * RPR: nonreactive * HIV: negative * TSH: within normal and repeat within normal * Folate: normal and repeat within normal * B12: normal and repeat within normal * Recommended to patient to follow-up with neurology outpatient and to establish care in the [facility] upon discharge Medications: * Aricept 10mg PO qHS * Namenda 10mg daily * Folic acid 1mg PO daily * Crestor 2.5mg PO HS 2.) Anemia-->Resolved * Within normal * Monitor 3.) Hypokalemia-->resolved * resolved 4) Abnormal Chest xray-->resolved * CT Chest: no acute pathology noted; official report in the computer 5.) Impaired glucose tolerance * Hgba1c: 5.7 * Will need check in one year for a1c to prevent over diabetes 6.) HTN-->Chronic * Continue home Cozaar 25mg PO daily * Aspirin 81mg PO daily 7.) Prophylaxis * Pepcid 20mg PO daily * Heparin 5000 units sc q8h * SCDs Disposition: Patient has temporary guardianship, currently awaiting placement at assisted living facility in [place] (per discussion with human services case manager) <Tamera Sawyer V - Last Filed: 07/19/17 17:16> Objective - Vital Signs/Intake and Output Vital Signs (last 24 hours): Temp Pulse Resp BP Pulse Ox 97.8 F 74 20 108/64 95 07/19/17 16:27 07/19/17 16:27 07/19/17 16:27 07/19/17 16:27 07/19/17 16:27 Intake and Output: 07/19/17 07/19/17 06:59 18:59 Intake Total 500 480 Balance 500 480 - Medications Medications: Current Medications Aspirin (Ecotrin) 81 mg PO DAILY [facility] Last Admin: 07/19/17 10:12 Dose: 81 mg Donepezil HCl (Aricept) 10 mg PO HS [facility] Last Admin: 07/18/17 21:57 Dose: 10 mg Famotidine (Pepcid) 20 mg PO DAILY [facility] Last Admin: 07/19/17 10:11 Dose: 20 mg Folic Acid (Folic Acid) 1 mg PO DAILY [facility] Last Admin: 07/19/17 10:11 Dose: 1 mg Heparin Sodium (Porcine) (Heparin) 5,000 units SC Q8 [facility] Last Admin: 07/19/17 15:16 Dose: 5,000 units Losartan Potassium (Cozaar) 25 mg PO DAILY [facility] Last Admin: 07/19/17 10:12 Dose: 25 mg Memantine (Namenda) 10 mg PO DAILY [facility] Last Admin: 07/19/17 10:11 Dose: 10 mg Rosuvastatin Calcium (Crestor) 2.5 mg PO HS [facility] Last Admin: 07/18/17 21:57 Dose: 2.5 mg - Labs Labs: 07/16/17 07:34 07/16/17 07:34 PT 11.8 SECONDS (9.7-12.2) 06/21/17 22:04 INR 1.1 06/21/17 22:04 APTT 32 SECONDS (21-34) 06/21/17 22:04 Attending/Attestation - Attestation I have personally seen and examined this patient.: Yes I have fully participated in the care of the patient.: Yes I have reviewed all pertinent clinical information, including history, physical exam and plan: Yes Notes (Text): Patient seen, examined and case discussed with day-time resident. Patient seen this morning. Patient also continues to report great disgust for [facility]. Patient reports to me Aug 18 2016. Patient is unaware [place] is coming up. Discussed with social work program coordinator, patient does have a temporary guardian in [place] but will need to find locations for assisting living. Discharge Diagnoses: 1.) Family History of Alzheimer's Disease Early Onset of Dementia * Family Hx: patient had Alzheimer's Disease at age 71 * Patient was told by a neurologist he has early signs of dementia * Psych consult Dr. Valente --> help appreciated * CT scan of the head is negative * X-ray shows a apical granuloma * Neurology Dr. Manzanares-->help appreciated * Completed EEG 07/07/17 * Discussed patient may complete further workup as outpatient. * negative heavy metal screen * Discussed with Dr. manzanares 07/07 * Repeat MRI 07/09: no acute intracranial abnormality. Mild chronic microangiopathic changes and mild age-related global parenchymal volume loss. Please note workup is in prior admission when patient eloped on discharge. * CT scan of the chest is negative and unremarkable * UDS is negative * UA: urine only + for ketones * Brain MRI: Limited motion degraded study. No evidence of acute hemorrhage or infarct. Minor chronic white matter ischemic changes are felt be present. Moderate generalized volume loss. * RPR: nonreactive * HIV: negative * TSH: within normal and repeat within normal * Folate: normal and repeat within normal * B12: normal and repeat within normal * Recommended to patient to follow-up with neurology outpatient and to establish care in the [facility] upon discharge Medications: * Aricept 10mg PO qHS * Namenda 10mg bid * Folic acid 1mg PO daily * Crestor 2.5mg PO HS 2.) Anemia-->Resolved * Within normal * Monitor 3.) Hypokalemia-->resolved * resolved 4) Abnormal Chest xray-->resolved * CT Chest: no acute pathology noted; official report in the computer 5.) Impaired glucose tolerance * Hgba1c: 5.7 * Will need check in one year for a1c to prevent over diabetes 6.) HTN-->Chronic * continue home Cozaar 25mg PO daily * Aspirin 81mg PO daily * 2 gram diet 7.) Prophylaxis * Pepcid 20mg PO BID * Heparin 5000 units sc q8h * SCDs * Court Appointed temporary guardian. Mr. Dangelo Thomas [phone]--> agreement to send patient to assisted living. however, this facility must be in [place] since [place] is [place]. Disposition: pending approval to assisted living facility and following status of temporary guardianship. Follow-up case management.
[2017-07-19] MEDS: Rosuvastatin Calcium 2.5 mg Tab PO SCH (21:42)
--- NOTE | 2017-07-20 10:41 | CP.PCM.PN ---
Subjective - Date & Time of Evaluation Date of Evaluation: 07/20/17 Time of Evaluation: 10:38 - Subjective Subjective: Mr. Nelson was seen and examined at the bedside. He is alert, oriented, and denies any headache, dizziness, lightheadedness, nausea, or vomiting. He remains on 1:1 sitter for patient safety. There was no untoward events overnight. Objective - Vital Signs/Intake and Output Vital Signs (last 24 hours): Temp Pulse Resp BP Pulse Ox 98.4 F 100 H 20 138/80 99 07/20/17 07:26 07/20/17 07:26 07/20/17 07:26 07/20/17 07:26 07/20/17 07:26 Intake and Output: 07/20/17 07/20/17 06:59 18:59 Intake Total 960 Balance 960 - Medications Medications: Current Medications Aspirin (Ecotrin) 81 mg PO DAILY [facility] Last Admin: 07/20/17 10:20 Dose: 81 mg Donepezil HCl (Aricept) 10 mg PO HS [facility] Last Admin: 07/19/17 21:42 Dose: 10 mg Famotidine (Pepcid) 20 mg PO DAILY [facility] Last Admin: 07/20/17 10:20 Dose: 20 mg Folic Acid (Folic Acid) 1 mg PO DAILY [facility] Last Admin: 07/20/17 10:20 Dose: 1 mg Heparin Sodium (Porcine) (Heparin) 5,000 units SC Q8 [facility] Last Admin: 07/20/17 05:29 Dose: 5,000 units Losartan Potassium (Cozaar) 25 mg PO DAILY [facility] Last Admin: 07/20/17 10:20 Dose: 25 mg Memantine (Namenda) 10 mg PO DAILY [facility] Last Admin: 07/20/17 10:20 Dose: 10 mg Rosuvastatin Calcium (Crestor) 2.5 mg PO HS [facility] Last Admin: 07/19/17 21:42 Dose: 2.5 mg - Labs Labs: 07/16/17 07:34 07/16/17 07:34 PT 11.8 SECONDS (9.7-12.2) 06/21/17 22:04 INR 1.1 06/21/17 22:04 APTT 32 SECONDS (21-34) 06/21/17 22:04 - Constitutional Appears: No Acute Distress - Head Exam Head Exam: ATRAUMATIC - Neurological Exam Neurological Exam: Alert, Awake Neuro motor strength exam: Left Upper Extremity: 5, Right Upper Extremity: 5, Left Lower Extremity: 5, Right Lower Extremity: 5 Additional comments: neurological unchanged from previous examination. Assessment and Plan (1) Dementia Assessment & Plan: Case discussed with Dr. Manzanares, continue all current medical regimen. There is no new recommendation from neurology. Status: Chronic
--- NOTE | 2017-07-20 13:27 | CP.PCM.PN ---
<Tabitha Charles - Last Filed: 07/20/17 13:30> Subjective - Date & Time of Evaluation Date of Evaluation: 07/20/17 Time of Evaluation: 13:24 - Subjective Subjective: Medicine Progress Note: Hospitalist Service Patient seen and examined at bedside. Per nursing no acute events overnight. Patient is doing well, offers no complaints at this time. Patient unaware that [place] is coming up. When asked today's date, patient states that is was July 15, 2017. He is currently orientated to person and place. Denies headaches, dizziness, cp, palpitations, sob, abdominal pain, urinary symptoms, changes in bowel habits. Objective - Vital Signs/Intake and Output Vital Signs (last 24 hours): Temp Pulse Resp BP Pulse Ox 98.4 F 100 H 20 138/80 99 07/20/17 07:26 07/20/17 07:26 07/20/17 07:26 07/20/17 07:26 07/20/17 07:26 Intake and Output: 07/20/17 07/20/17 06:59 18:59 Intake Total 960 Balance 960 - Medications Medications: Current Medications Aspirin (Ecotrin) 81 mg PO DAILY [facility] Last Admin: 07/20/17 10:20 Dose: 81 mg Donepezil HCl (Aricept) 10 mg PO HS [facility] Last Admin: 07/19/17 21:42 Dose: 10 mg Famotidine (Pepcid) 20 mg PO DAILY [facility] Last Admin: 07/20/17 10:20 Dose: 20 mg Folic Acid (Folic Acid) 1 mg PO DAILY [facility] Last Admin: 07/20/17 10:20 Dose: 1 mg Heparin Sodium (Porcine) (Heparin) 5,000 units SC Q8 [facility] Last Admin: 07/20/17 05:29 Dose: 5,000 units Losartan Potassium (Cozaar) 25 mg PO DAILY [facility] Last Admin: 07/20/17 10:20 Dose: 25 mg Memantine (Namenda) 10 mg PO DAILY [facility] Last Admin: 07/20/17 10:20 Dose: 10 mg Rosuvastatin Calcium (Crestor) 2.5 mg PO HS [facility] Last Admin: 07/19/17 21:42 Dose: 2.5 mg - Labs Labs: 07/16/17 07:34 07/16/17 07:34 PT 11.8 SECONDS (9.7-12.2) 11/23/17 22:04 INR 1.1 06/21/17 22:04 APTT 32 SECONDS (21-34) 06/21/17 22:04 - Constitutional Appears: Well, No Acute Distress - Head Exam Head Exam: ATRAUMATIC, NORMAL INSPECTION - Eye Exam Eye Exam: EOMI, Normal appearance - ENT Exam ENT Exam: Mucous Membranes Moist - Neck Exam Neck Exam: Full ROM - Respiratory Exam Respiratory Exam: Clear to Ausculation Bilateral, NORMAL BREATHING PATTERN. absent: Rales, Rhonchi, Wheezes - Cardiovascular Exam Cardiovascular Exam: RRR, +S1, +S2 - GI/Abdominal Exam GI & Abdominal Exam: Soft. absent: Guarding, Rigid, Tenderness - Extremities Exam Extremities Exam: Normal Inspection. absent: Calf Tenderness - Neurological Exam Neurological Exam: Alert, Awake, CN II-XII Intact. absent: Oriented x3 ( orientated to person and place ) - Psychiatric Exam Psychiatric exam: Normal Affect, Normal Mood - Skin Skin Exam: Dry, Normal Color, Warm Assessment and Plan - Assessment and Plan (Free Text) Assessment: 1.) Family History of Alzheimer's Disease Early Onset of Dementia * Family Hx: patient had Alzheimer's Disease at age 71 * Patient was told by a neurologist he has early signs of dementia * Psych consult Dr. Valente --> help appreciated * CT scan of the head is negative * X-ray shows a apical granuloma * Neurology Dr. Manzanares--> help appreciated * Completed EEG 07/07/17 * Discussed patient may complete further workup as outpatient. * Negative heavy metal screen * Discussed with Dr. Manzanares 07/07 * Repeat MRI 07/09: no acute intracranial abnormality. Mild chronic microangiopathic changes and mild age-related global parenchymal volume loss. * No new recommendations from Neurology at this time * Elopement risk, will continue 1:1 observation Please note workup is in prior admission when patient eloped on discharge. * CT scan of the chest is negative and unremarkable * UDS is negative * UA: urine only + for ketones * Brain MRI: Limited motion degraded study. No evidence of acute hemorrhage or infarct. Minor chronic white matter ischemic changes are felt be present. Moderate generalized volume loss. * RPR: nonreactive * HIV: negative * TSH: within normal and repeat within normal * Folate: normal and repeat within normal * B12: normal and repeat within normal * Recommended to patient to follow-up with neurology outpatient and to [facility] upon discharge Medications: * Aricept 10mg PO qHS * Namenda 10mg daily * Folic acid 1mg PO daily * Crestor 2.5mg PO HS 2.) Anemia-->Resolved * Within normal * Monitor 3.) Hypokalemia-->resolved * resolved 4) Abnormal Chest xray-->resolved * CT Chest: no acute pathology noted; official report in the computer 5.) Impaired glucose tolerance * Hgba1c: 5.7 * Will need check in one year for a1c to prevent over diabetes 6.) HTN-->Chronic * Continue home Cozaar 25mg PO daily * Aspirin 81mg PO daily 7.) Prophylaxis * Pepcid 20mg PO daily * Heparin 5000 units sc q8h * SCDs * Court Appointed temporary guardian. Mr. Dangelo Thomas [phone]--> agreement to send patient to assisted living. however, this facility must be in [place] since [place] is [place]. Disposition: Patient has temporary guardianship, currently awaiting placement at assisted living facility in [place] (per discussion with disability case manager) <Tamera Sawyer V - Last Filed: 07/21/17 00:18> Objective - Vital Signs/Intake and Output Vital Signs (last 24 hours): Temp Pulse Resp BP Pulse Ox 98.2 F 68 20 120/74 98 07/20/17 23:22 07/20/17 23:22 07/20/17 23:22 07/20/17 23:22 07/20/17 23:22 Intake and Output: 07/20/17 07/21/17 18:59 06:59 Intake Total 450 480 Balance 450 480 - Medications Medications: Current Medications Aspirin (Ecotrin) 81 mg PO DAILY [facility] Last Admin: 07/20/17 10:20 Dose: 81 mg Donepezil HCl (Aricept) 10 mg PO HS [facility] Last Admin: 07/20/17 21:30 Dose: 10 mg Famotidine (Pepcid) 20 mg PO DAILY [facility] Last Admin: 07/20/17 10:20 Dose: 20 mg Folic Acid (Folic Acid) 1 mg PO DAILY [facility] Last Admin: 07/20/17 10:20 Dose: 1 mg Heparin Sodium (Porcine) (Heparin) 5,000 units SC Q8 [facility] Last Admin: 07/20/17 21:30 Dose: 5,000 units Losartan Potassium (Cozaar) 25 mg PO DAILY [facility] Last Admin: 07/20/17 10:20 Dose: 25 mg Memantine (Namenda) 10 mg PO DAILY [facility] Last Admin: 07/20/17 10:20 Dose: 10 mg Rosuvastatin Calcium (Crestor) 2.5 mg PO HS [facility] Last Admin: 07/20/17 21:30 Dose: 2.5 mg - Labs Labs: 07/16/17 07:34 07/16/17 07:34 PT 11.8 SECONDS (9.7-12.2) 06/21/17 22:04 INR 1.1 06/21/17 22:04 APTT 32 SECONDS (21-34) 06/21/17 22:04 Attending/Attestation - Attestation I have personally seen and examined this patient.: Yes I have fully participated in the care of the patient.: Yes I have reviewed all pertinent clinical information, including history, physical exam and plan: Yes Notes (Text): This is late computer entry for 07/20/17. Patient seen, examined and case discussed with day-time resident. Patient seen this morning. Patient also continues to report great disgust for [facility]. Patient reports to me Jul 16 2017. Patient is unaware [place] is coming up. Patient does have a temporary guardian in [place] but social work to coordinate with patient's temporary guardian for will need to find locations for assisting living Assessment/Plan: 1.) Family History of Alzheimer's Disease Early Onset of Dementia * Family Hx: patient had Alzheimer's Disease at age 71 * Patient was told by a neurologist he has early signs of dementia * Psych consult Dr. Valente --> help appreciated * CT scan of the head is negative * X-ray shows a apical granuloma * Neurology Dr. Manzanares-->help appreciated * Completed EEG 07/07/17 * Discussed patient may complete further workup as outpatient. * negative heavy metal screen * Discussed with Dr. manzanares 07/07 * Repeat MRI 07/09: no acute intracranial abnormality. Mild chronic microangiopathic changes and mild age-related global parenchymal volume loss. Please note workup is in prior admission when patient eloped on discharge. * CT scan of the chest is negative and unremarkable * UDS is negative * UA: urine only + for ketones * Brain MRI: Limited motion degraded study. No evidence of acute hemorrhage or infarct. Minor chronic white matter ischemic changes are felt be present. Moderate generalized volume loss. * RPR: nonreactive * HIV: negative * TSH: within normal and repeat within normal * Folate: normal and repeat within normal * B12: normal and repeat within normal * Recommended to patient to follow-up with neurology outpatient and to establish care in [facility] upon discharge Medications: * Aricept 10mg PO qHS * Namenda 10mg bid * Folic acid 1mg PO daily * Crestor 2.5mg PO HS 2.) Anemia-->Resolved * Within normal * Monitor 3.) Hypokalemia-->resolved * resolved 4) Abnormal Chest xray-->resolved * CT Chest: no acute pathology noted; official report in the computer 5.) Impaired glucose tolerance * Hgba1c: 5.7 * Will need check in one year for a1c to prevent over diabetes 6.) HTN-->Chronic * continue home Cozaar 25mg PO daily * Aspirin 81mg PO daily * 2 gram diet 7.) Prophylaxis * Pepcid 20mg PO BID * Heparin 5000 units sc q8h * SCDs * Court Appointed temporary guardian. Mr. Dangelo Thomas [phone]--> agreement to send patient to assisted living. however, this facility must be in [place] since [place]. Disposition: pending approval to assisted living facility and has of temporary guardianship. Follow-up case management and social work.
[2017-07-20] MEDS: Rosuvastatin Calcium 2.5 mg Tab PO SCH (21:30)
--- NOTE | 2017-07-21 02:50 | CP.PCM.PN ---
<Angel Kelley - Last Filed: 07/21/17 06:42> Subjective - Date & Time of Evaluation Date of Evaluation: 07/21/17 Time of Evaluation: 06:25 - Subjective Subjective: Medicine progress note for Dr. Sawyer Patient seen and examined at bedside. Patient has no acute complaints at this time and is resting comfortably. Objective - Vital Signs/Intake and Output Vital Signs (last 24 hours): Temp Pulse Resp BP Pulse Ox 98.2 F 68 20 120/74 98 07/20/17 23:22 07/20/17 23:22 07/20/17 23:22 07/20/17 23:22 07/20/17 23:22 Intake and Output: 07/20/17 07/21/17 18:59 06:59 Intake Total 450 480 Balance 450 480 - Medications Medications: Current Medications Aspirin (Ecotrin) 81 mg PO DAILY [facility] Last Admin: 07/20/17 10:20 Dose: 81 mg Donepezil HCl (Aricept) 10 mg PO HS [facility] Last Admin: 07/20/17 21:30 Dose: 10 mg Famotidine (Pepcid) 20 mg PO DAILY [facility] Last Admin: 07/20/17 10:20 Dose: 20 mg Folic Acid (Folic Acid) 1 mg PO DAILY [facility] Last Admin: 07/20/17 10:20 Dose: 1 mg Heparin Sodium (Porcine) (Heparin) 5,000 units SC Q8 [facility] Last Admin: 07/20/17 21:30 Dose: 5,000 units Losartan Potassium (Cozaar) 25 mg PO DAILY [facility] Last Admin: 07/20/17 10:20 Dose: 25 mg Memantine (Namenda) 10 mg PO DAILY [facility] Last Admin: 07/20/17 10:20 Dose: 10 mg Rosuvastatin Calcium (Crestor) 2.5 mg PO HS [facility] Last Admin: 07/20/17 21:30 Dose: 2.5 mg - Labs Labs: 07/16/17 07:34 07/16/17 07:34 PT 11.8 SECONDS (9.7-12.2) 06/21/17 22:04 INR 1.1 06/21/17 22:04 APTT 32 SECONDS (21-34) 06/21/17 22:04 - Constitutional Appears: No Acute Distress - Head Exam Head Exam: ATRAUMATIC, NORMOCEPHALIC - Eye Exam Eye Exam: EOMI, Normal appearance - ENT Exam ENT Exam: Mucous Membranes Moist - Respiratory Exam Respiratory Exam: Clear to Ausculation Bilateral. absent: Rales, Rhonchi, Wheezes - Cardiovascular Exam Cardiovascular Exam: REGULAR RHYTHM, +S1, +S2 - GI/Abdominal Exam GI & Abdominal Exam: Soft, Normal Bowel Sounds. absent: Tenderness - Extremities Exam Extremities Exam: Normal Inspection - Neurological Exam Neurological Exam: Alert, Awake. absent: Oriented x3 - Skin Skin Exam: Dry, Warm Assessment and Plan - Assessment and Plan (Free Text) Plan: 1.) Family History of Alzheimer's Disease Early Onset of Dementia * Family Hx: patient had Alzheimer's Disease at age 71 * Patient was told by a neurologist he has early signs of dementia * Psych consult Dr. Valente --> help appreciated * CT scan of the head is negative * X-ray shows a apical granuloma * Neurology Dr. Manzanares-->help appreciated * Completed EEG 07/07/17 * Discussed patient may complete further workup as outpatient. * negative heavy metal screen * Discussed with Dr. manzanares 07/07 * Repeat MRI 07/09: no acute intracranial abnormality. Mild chronic microangiopathic changes and mild age-related global parenchymal volume loss. Please note workup is in prior admission when patient eloped on discharge. * CT scan of the chest is negative and unremarkable * UDS is negative * UA: urine only + for ketones * Brain MRI: Limited motion degraded study. No evidence of acute hemorrhage or infarct. Minor chronic white matter ischemic changes are felt be present. Moderate generalized volume loss. * RPR: nonreactive * HIV: negative * TSH: within normal and repeat within normal * Folate: normal and repeat within normal * B12: normal and repeat within normal * Recommended to patient to follow-up with neurology outpatient and to establish care in the [facility] upon discharge Medications: * Aricept 10mg PO qHS * Namenda 10mg bid * Folic acid 1mg PO daily * Crestor 2.5mg PO HS 2.) Anemia-->Resolved * Within normal * Monitor 3.) Hypokalemia-->resolved * resolved 4) Abnormal Chest xray-->resolved * CT Chest: no acute pathology noted; official report in the computer 5.) Impaired glucose tolerance * Hgba1c: 5.7 * Will need check in one year for a1c to prevent overt diabetes 6.) HTN-->Chronic * continue home Cozaar 25mg PO daily * Aspirin 81mg PO daily * 2 gram diet 7.) Prophylaxis * Pepcid 20mg PO BID * Heparin 5000 units sc q8h * SCDs * Court Appointed temporary guardian. Mr. Dangelo Thomas [phone]--> agreement to send patient to assisted living. however, this facility must be in [place] since [place] is [place]. Disposition: pending approval to assisted living facility and has of temporary guardianship. Follow-up case management and social work. Will DW Dr. Silverio Kelley PGY-1 <Tamera Sawyer V - Last Filed: 07/22/17 09:11> Objective - Vital Signs/Intake and Output Vital Signs (last 24 hours): Temp Pulse Resp BP Pulse Ox 97.7 F 80 20 113/69 96 07/22/17 08:00 07/22/17 08:00 07/22/17 08:00 07/22/17 08:00 07/22/17 08:00 Intake and Output: 07/22/17 07/22/17 06:59 18:59 Intake Total 480 Balance 480 - Medications Medications: Current Medications Aspirin (Ecotrin) 81 mg PO DAILY [facility] Last Admin: 07/21/17 10:06 Dose: 81 mg Donepezil HCl (Aricept) 10 mg PO HS [facility] Last Admin: 07/21/17 21:17 Dose: 10 mg Famotidine (Pepcid) 20 mg PO DAILY [facility] Last Admin: 07/21/17 10:06 Dose: 20 mg Folic Acid (Folic Acid) 1 mg PO DAILY [facility] Last Admin: 07/21/17 10:06 Dose: 1 mg Heparin Sodium (Porcine) (Heparin) 5,000 units SC Q8 [facility] Last Admin: 07/22/17 05:28 Dose: 5,000 units Losartan Potassium (Cozaar) 25 mg PO DAILY [facility] Last Admin: 07/21/17 10:06 Dose: 25 mg Memantine (Namenda) 10 mg PO DAILY [facility] Last Admin: 07/21/17 10:06 Dose: 10 mg Rosuvastatin Calcium (Crestor) 2.5 mg PO HS [facility] Last Admin: 07/21/17 21:17 Dose: 2.5 mg - Labs Labs: 07/16/17 07:34 07/16/17 07:34 PT 11.8 SECONDS (9.7-12.2) 06/21/17 22:04 INR 1.1 06/21/17 22:04 APTT 32 SECONDS (21-34) 06/21/17 22:04 Attending/Attestation - Attestation I have personally seen and examined this patient.: Yes I have fully participated in the care of the patient.: Yes I have reviewed all pertinent clinical information, including history, physical exam and plan: Yes Notes (Text): This is late computer entry for 07/21/17. Patient seen, examined and case discussed with day-time resident. Patient seen this morning. Patient also continues to report great disgust for [facility]. Patient is unaware [place] is coming up. Patient is very thankful for the coffee and donut I brought for him this morning. Patient does have a temporary guardian in [place] but social work to coordinate with patient 's temporary guardian for will need to find locations for assisting living Assessment/Plan: 1.) Family History of Alzheimer's Disease Early Onset of Dementia * Family Hx: patient had Alzheimer's Disease at age 71 * Patient was told by a neurologist he has early signs of dementia * Psych consult Dr. Valente --> help appreciated * CT scan of the head is negative * X-ray shows a apical granuloma * Neurology Dr. Manzanares-->help appreciated * Completed EEG 07/07/17 * Discussed patient may complete further workup as outpatient. * negative heavy metal screen * Discussed with Dr. manzanares 07/07 * Repeat MRI 07/09: no acute intracranial abnormality. Mild chronic microangiopathic changes and mild age-related global parenchymal volume loss. Please note workup is in prior admission when patient eloped on discharge. * CT scan of the chest is negative and unremarkable * UDS is negative * UA: urine only + for ketones * Brain MRI: Limited motion degraded study. No evidence of acute hemorrhage or infarct. Minor chronic white matter ischemic changes are felt be present. Moderate generalized volume loss. * RPR: nonreactive * HIV: negative * TSH: within normal and repeat within normal * Folate: normal and repeat within normal * B12: normal and repeat within normal * Recommended to patient to follow-up with neurology outpatient and to establish care in the [facility] upon discharge Medications: * Aricept 10mg PO qHS * Namenda 10mg bid * Folic acid 1mg PO daily * Crestor 2.5mg PO HS 2.) Anemia-->Resolved * Within normal * Monitor 3.) Hypokalemia-->resolved * resolved 4) Abnormal Chest xray-->resolved * CT Chest: no acute pathology noted; official report in the computer 5.) Impaired glucose tolerance * Hgba1c: 5.7 * Will need check in one year for a1c to prevent over diabetes 6.) HTN-->Chronic * continue home Cozaar 25mg PO daily * Aspirin 81mg PO daily * 2 gram diet 7.) Prophylaxis * Pepcid 20mg PO BID * Heparin 5000 units sc q8h * SCDs * Court Appointed temporary guardian. Mr. Dangelo Thomas [phone]--> agreement to send patient to assisted living. however, this facility must be in [place] since [place] is from [place]. Disposition: pending approval to assisted living facility and has of temporary guardianship. Follow-up case management and social work.
[2017-07-21] MEDS: Rosuvastatin Calcium 2.5 mg Tab PO SCH (21:17)
--- NOTE | 2017-07-22 00:40 | CP.PCM.PN ---
<Angel Kelley - Last Filed: 07/22/17 07:51> Subjective - Date & Time of Evaluation Date of Evaluation: 07/22/17 Time of Evaluation: 06:10 - Subjective Subjective: Medicine progress note for Dr. Sawyer Patient seen and examined at bedside. Patient has no acute complaints at this time. No acute events overnight per nursing. Objective - Vital Signs/Intake and Output Vital Signs (last 24 hours): Temp Pulse Resp BP Pulse Ox 98.7 F 62 20 118/72 98 07/22/17 00:06 07/22/17 00:06 07/22/17 00:06 07/22/17 00:06 07/22/17 00:06 Intake and Output: 07/21/17 07/22/17 18:59 06:59 Intake Total 600 Balance 600 - Medications Medications: Current Medications Aspirin (Ecotrin) 81 mg PO DAILY [facility] Last Admin: 07/21/17 10:06 Dose: 81 mg Donepezil HCl (Aricept) 10 mg PO HS [facility] Last Admin: 07/21/17 21:17 Dose: 10 mg Famotidine (Pepcid) 20 mg PO DAILY [facility] Last Admin: 07/21/17 10:06 Dose: 20 mg Folic Acid (Folic Acid) 1 mg PO DAILY [facility] Last Admin: 07/21/17 10:06 Dose: 1 mg Heparin Sodium (Porcine) (Heparin) 5,000 units SC Q8 [facility] Last Admin: 07/21/17 21:18 Dose: 5,000 units Losartan Potassium (Cozaar) 25 mg PO DAILY [facility] Last Admin: 07/21/17 10:06 Dose: 25 mg Memantine (Namenda) 10 mg PO DAILY [facility] Last Admin: 07/21/17 10:06 Dose: 10 mg Rosuvastatin Calcium (Crestor) 2.5 mg PO HS [facility] Last Admin: 07/21/17 21:17 Dose: 2.5 mg - Labs Labs: 07/16/17 07:34 07/16/17 07:34 PT 11.8 SECONDS (9.7-12.2) 06/21/17 22:04 INR 1.1 06/21/17 22:04 APTT 32 SECONDS (21-34) 06/21/17 22:04 - Constitutional Appears: No Acute Distress - Head Exam Head Exam: ATRAUMATIC, NORMOCEPHALIC - Eye Exam Eye Exam: EOMI, Normal appearance - ENT Exam ENT Exam: Mucous Membranes Moist - Respiratory Exam Respiratory Exam: Clear to Ausculation Bilateral. absent: Rales, Rhonchi, Wheezes - Cardiovascular Exam Cardiovascular Exam: REGULAR RHYTHM, +S1, +S2 - GI/Abdominal Exam GI & Abdominal Exam: Soft, Normal Bowel Sounds. absent: Tenderness - Extremities Exam Extremities Exam: Normal Inspection - Neurological Exam Neurological Exam: Alert, Awake. absent: Oriented x3 - Skin Skin Exam: Dry, Warm Assessment and Plan - Assessment and Plan (Free Text) Plan: 1.) Family History of Alzheimer's Disease Early Onset of Dementia * Family Hx: patient had Alzheimer's Disease at age 71 * Patient was told by a neurologist he has early signs of dementia * Psych consult Dr. Valente --> help appreciated * CT scan of the head is negative * X-ray shows a apical granuloma * Neurology Dr. Manzanares-->help appreciated * Completed EEG 07/07/17 * Discussed patient may complete further workup as outpatient. * negative heavy metal screen * Discussed with Dr. manzanares 07/07 * Repeat MRI 07/09: no acute intracranial abnormality. Mild chronic microangiopathic changes and mild age-related global parenchymal volume loss. Please note workup is in prior admission when patient eloped on discharge. * CT scan of the chest is negative and unremarkable * UDS is negative * UA: urine only + for ketones * Brain MRI: Limited motion degraded study. No evidence of acute hemorrhage or infarct. Minor chronic white matter ischemic changes are felt be present. Moderate generalized volume loss. * RPR: nonreactive * HIV: negative * TSH: within normal and repeat within normal * Folate: normal and repeat within normal * B12: normal and repeat within normal * Recommended to patient to follow-up with neurology outpatient and to establish care in the [facility] upon discharge Medications: * Aricept 10mg PO qHS * Namenda 10mg bid * Folic acid 1mg PO daily * Crestor 2.5mg PO HS 2.) Anemia-->Resolved * Within normal * Monitor 3.) Hypokalemia-->resolved * resolved 4) Abnormal Chest xray-->resolved * CT Chest: no acute pathology noted; official report in the computer 5.) Impaired glucose tolerance * Hgba1c: 5.7 * Will need check in one year for a1c to prevent overt diabetes 6.) HTN-->Chronic * continue home Cozaar 25mg PO daily * Aspirin 81mg PO daily * 2 gram diet 7.) Prophylaxis * Pepcid 20mg PO BID * Heparin 5000 units sc q8h * SCDs * Court Appointed temporary guardian. Mr. Dangelo Thomas [phone]--> agreement to send patient to assisted living. however, this facility must be in [place] since [place] is [place]. Disposition: pending approval to assisted living facility and has of temporary guardianship. Follow-up case management and social work. Will DW Dr. Silverio Kelley PGY-1 <Tamera Sawyer V - Last Filed: 07/22/17 09:12> Objective - Vital Signs/Intake and Output Vital Signs (last 24 hours): Temp Pulse Resp BP Pulse Ox 97.7 F 80 20 113/69 96 07/22/17 08:00 07/22/17 08:00 07/22/17 08:00 07/22/17 08:00 07/22/17 08:00 Intake and Output: 07/22/17 07/22/17 06:59 18:59 Intake Total 480 Balance 480 - Medications Medications: Current Medications Aspirin (Ecotrin) 81 mg PO DAILY [facility] Last Admin: 07/21/17 10:06 Dose: 81 mg Donepezil HCl (Aricept) 10 mg PO HS [facility] Last Admin: 07/21/17 21:17 Dose: 10 mg Famotidine (Pepcid) 20 mg PO DAILY [facility] Last Admin: 07/21/17 10:06 Dose: 20 mg Folic Acid (Folic Acid) 1 mg PO DAILY [facility] Last Admin: 07/21/17 10:06 Dose: 1 mg Heparin Sodium (Porcine) (Heparin) 5,000 units SC Q8 [facility] Last Admin: 07/22/17 05:28 Dose: 5,000 units Losartan Potassium (Cozaar) 25 mg PO DAILY [facility] Last Admin: 07/21/17 10:06 Dose: 25 mg Memantine (Namenda) 10 mg PO DAILY [facility] Last Admin: 07/21/17 10:06 Dose: 10 mg Rosuvastatin Calcium (Crestor) 2.5 mg PO HS [facility] Last Admin: 07/21/17 21:17 Dose: 2.5 mg - Labs Labs: 07/16/17 07:34 07/16/17 07:34 PT 11.8 SECONDS (9.7-12.2) 06/21/17 22:04 INR 1.1 06/21/17 22:04 APTT 32 SECONDS (21-34) 06/21/17 22:04 Attending/Attestation - Attestation I have personally seen and examined this patient.: Yes I have fully participated in the care of the patient.: Yes I have reviewed all pertinent clinical information, including history, physical exam and plan: Yes Notes (Text): Patient seen, examined and case discussed with day-time resident. Patient seen this morning. Patient eating breakfast. Patient is able to identify today is Sunday. However, he is unaware [facility] is coming up. Patient does have a temporary guardian in [place] but social work to coordinate with patient's temporary guardian for will need to find locations for assisting living Assessment/Plan: 1.) Family History of Alzheimer's Disease Early Onset of Dementia * Family Hx: patient had Alzheimer's Disease at age 71 * Patient was told by a neurologist he has early signs of dementia * Psych consult Dr. Valente --> help appreciated * CT scan of the head is negative * X-ray shows a apical granuloma * Neurology Dr. Manzanares-->help appreciated * Completed EEG 07/07/17 * Discussed patient may complete further workup as outpatient. * negative heavy metal screen * Discussed with Dr. manzanares 07/07 * Repeat MRI 07/09: no acute intracranial abnormality. Mild chronic microangiopathic changes and mild age-related global parenchymal volume loss. Please note workup is in prior admission when patient eloped on discharge. * CT scan of the chest is negative and unremarkable * UDS is negative * UA: urine only + for ketones * Brain MRI: Limited motion degraded study. No evidence of acute hemorrhage or infarct. Minor chronic white matter ischemic changes are felt be present. Moderate generalized volume loss. * RPR: nonreactive * HIV: negative * TSH: within normal and repeat within normal * Folate: normal and repeat within normal * B12: normal and repeat within normal * Recommended to patient to follow-up with neurology outpatient and to establish care in the [facility] upon discharge Medications: * Aricept 10mg PO qHS * Namenda 10mg bid * Folic acid 1mg PO daily * Crestor 2.5mg PO HS 2.) Anemia-->Resolved * Within normal * Monitor 3.) Hypokalemia-->resolved * resolved 4) Abnormal Chest xray-->resolved * CT Chest: no acute pathology noted; official report in the computer 5.) Impaired glucose tolerance * Hgba1c: 5.7 * Will need check in one year for a1c to prevent over diabetes 6.) HTN-->Chronic * continue home Cozaar 25mg PO daily * Aspirin 81mg PO daily * 2 gram diet 7.) Prophylaxis * Pepcid 20mg PO BID * Heparin 5000 units sc q8h * SCDs * Court Appointed temporary guardian. Mr. Dangelo Thomas [phone]--> agreement to send patient to assisted living. however, this facility must be in [place] since [place]. Disposition: pending approval to assisted living facility and has of temporary guardianship. Follow-up case management and social work.
[2017-07-22] MEDS: Rosuvastatin Calcium 2.5 mg Tab PO SCH (22:07)
--- NOTE | 2017-07-23 01:25 | CP.PCM.PN ---
<Silas Duke - Last Filed: 07/23/17 01:24> Subjective - Date & Time of Evaluation Date of Evaluation: 07/23/17 Time of Evaluation: 01:24 - Subjective Subjective: Patient seen and examined at bedside. No new complaints at this time. Denies fever, chills, SOB, chest pain. Objective - Vital Signs/Intake and Output Vital Signs (last 24 hours): Temp Pulse Resp BP Pulse Ox 98.4 F 77 20 126/70 99 07/22/17 23:30 07/22/17 23:30 07/22/17 23:30 07/22/17 23:30 07/22/17 23:30 Intake and Output: 07/22/17 07/23/17 18:59 06:59 Intake Total 450 Balance 450 - Medications Medications: Current Medications Aspirin (Ecotrin) 81 mg PO DAILY [facility] Last Admin: 07/22/17 09:44 Dose: 81 mg Donepezil HCl (Aricept) 10 mg PO HS [facility] Last Admin: 07/22/17 22:07 Dose: 10 mg Famotidine (Pepcid) 20 mg PO DAILY [facility] Last Admin: 07/22/17 09:44 Dose: 20 mg Folic Acid (Folic Acid) 1 mg PO DAILY [facility] Last Admin: 07/22/17 09:43 Dose: 1 mg Heparin Sodium (Porcine) (Heparin) 5,000 units SC Q8 [facility] Last Admin: 07/22/17 22:07 Dose: 5,000 units Losartan Potassium (Cozaar) 25 mg PO DAILY [facility] Last Admin: 07/22/17 09:43 Dose: 25 mg Memantine (Namenda) 10 mg PO DAILY [facility] Last Admin: 07/22/17 09:44 Dose: 10 mg Rosuvastatin Calcium (Crestor) 2.5 mg PO HS [facility] Last Admin: 07/22/17 22:07 Dose: 2.5 mg - Labs Labs: 07/16/17 07:34 07/16/17 07:34 PT 11.8 SECONDS (9.7-12.2) 06/21/17 22:04 INR 1.1 06/21/17 22:04 APTT 32 SECONDS (21-34) 06/21/17 22:04 - Additional Findings Additional findings: - Constitutional Appears: No Acute Distress - Head Exam Head Exam: ATRAUMATIC, NORMOCEPHALIC - Eye Exam Eye Exam: EOMI, Normal appearance - ENT Exam ENT Exam: Mucous Membranes Moist - Respiratory Exam Respiratory Exam: Clear to Ausculation Bilateral. absent: Rales, Rhonchi, Wheezes - Cardiovascular Exam Cardiovascular Exam: REGULAR RHYTHM, +S1, +S2 - GI/Abdominal Exam GI & Abdominal Exam: Soft, Normal Bowel Sounds. absent: Tenderness - Extremities Exam Extremities Exam: Normal Inspection - Neurological Exam Neurological Exam: Alert, Awake. absent: Oriented x3 - Skin Skin Exam: Dry, Warm Assessment and Plan - Assessment and Plan (Free Text) Assessment: 1.) Family History of Alzheimer's Disease Early Onset of Dementia * Family Hx: patient had Alzheimer's Disease at age 71 * Patient was told by a neurologist he has early signs of dementia * Psych consult Dr. Valente --> help appreciated * CT scan of the head is negative * X-ray shows a apical granuloma * Neurology Dr. Manzanares-->help appreciated * Completed EEG 07/07/17 * Discussed patient may complete further workup as outpatient. * negative heavy metal screen * Discussed with Dr. manzanares 07/07 * Repeat MRI 07/09: no acute intracranial abnormality. Mild chronic microangiopathic changes and mild age-related global parenchymal volume loss. Please note workup is in prior admission when patient eloped on discharge. * CT scan of the chest is negative and unremarkable * UDS is negative * UA: urine only + for ketones * Brain MRI: Limited motion degraded study. No evidence of acute hemorrhage or infarct. Minor chronic white matter ischemic changes are felt be present. Moderate generalized volume loss. * RPR: nonreactive * HIV: negative * TSH: within normal and repeat within normal * Folate: normal and repeat within normal * B12: normal and repeat within normal * Recommended to patient to follow-up with neurology outpatient and to establish care in the [facility] upon discharge Medications: * Aricept 10mg PO qHS * Namenda 10mg bid * Folic acid 1mg PO daily * Crestor 2.5mg PO HS 2.) Anemia-->Resolved * Within normal * Monitor 3.) Hypokalemia-->resolved * resolved 4) Abnormal Chest xray-->resolved * CT Chest: no acute pathology noted; official report in the computer 5.) Impaired glucose tolerance * Hgba1c: 5.7 * Will need check in one year for a1c to prevent overt diabetes 6.) HTN-->Chronic * continue home Cozaar 25mg PO daily * Aspirin 81mg PO daily * 2 gram diet 7.) Prophylaxis * Pepcid 20mg PO BID * Heparin 5000 units sc q8h * SCDs * Court Appointed temporary guardian. Mr. Dangelo Thomas [phone]--> agreement to send patient to assisted living. however, this facility must [place] in [place] since [place]. Disposition: pending approval to assisted living facility and has of temporary guardianship. Follow-up case management and social work. <Gary Damon - Last Filed: 07/23/17 20:23> Objective - Vital Signs/Intake and Output Vital Signs (last 24 hours): Temp Pulse Resp BP Pulse Ox 98.6 F 86 20 134/95 H 96 07/23/17 15:00 07/23/17 15:00 07/23/17 15:00 07/23/17 15:00 07/23/17 15:00 Intake and Output: 07/23/17 07/24/17 18:59 06:59 Intake Total 240 Balance 240 - Medications Medications: Current Medications Aspirin (Ecotrin) 81 mg PO DAILY [facility] Last Admin: 07/23/17 09:59 Dose: 81 mg Donepezil HCl (Aricept) 10 mg PO HS [facility] Last Admin: 07/22/17 22:07 Dose: 10 mg Famotidine (Pepcid) 20 mg PO DAILY [facility] Last Admin: 07/23/17 09:59 Dose: 20 mg Folic Acid (Folic Acid) 1 mg PO DAILY [facility] Last Admin: 07/23/17 09:59 Dose: 1 mg Losartan Potassium (Cozaar) 25 mg PO DAILY [facility] Last Admin: 07/23/17 09:59 Dose: 25 mg Memantine (Namenda) 10 mg PO DAILY [facility] Last Admin: 07/23/17 09:59 Dose: 10 mg Rosuvastatin Calcium (Crestor) 2.5 mg PO HS [facility] Last Admin: 07/22/17 22:07 Dose: 2.5 mg - Labs Labs: 07/23/17 06:45 07/23/17 06:45 PT 11.8 SECONDS (9.7-12.2) 06/21/17 22:04 INR 1.1 06/21/17 22:04 APTT 32 SECONDS (21-34) 06/21/17 22:04 Attending/Attestation - Attestation I have personally seen and examined this patient.: Yes I have fully participated in the care of the patient.: Yes I have reviewed all pertinent clinical information, including history, physical exam and plan: Yes Notes (Text): 07/23/17 20:21 Patient was seen and examined at 10:15 PM 07/23/17 358 A Exam, assessment and plan were thoroughly gone over with the resident. HEENT, Cardio, Resp, GI, Ext, CN exams were unremarkable Assessments: 1). Dimentia: Aricept, Namenda, Folic Acid, Crestor, ASA 2). Anemia: resolved 3). Hypokalemia: resolved 4). Abnormal Chest X Ray (Granuloma?): CT Chest was unremarkable 5). Impaired Fasting Glucose: HgBA1C was 5.7 6). HTN: Cozaar 7). Prophylaxis: Pepcid, SCD, 1:1 observation for elopement risk Heparin was D/C'd as patient is walking 10 laps around medical floor every hour MRI Brain without contrast showed NO acute intracranial abnormality, mild chronic microangiopathic changes, and mild age related global parenchymal Heavy Metal blood work up was negative. [facility] who applied for guardianship is making arrangements for placement. Gary Damon D.O.
[2017-07-23 06:57] LABS: BASO % 0.2 % (0.0-2.0); EOS % 0.2 % (0.0-4.0); HEMOGLOBIN 13.6 g/dL (12.0-18.0); LYMPH # 1.5 K/uL (1.0-4.3); LYMPH % 15.9 % (20.0-40.0); MEAN CELL VOLUME 93.5 fL (80.0-94.0); MEAN CORPUSCULAR HEMOGLOBIN 32.5 pg (27.0-31.0); MEAN CORPUSCULAR HGB CONC 34.8 g/dL (33.0-37.0); MEAN PLATELET VOLUME 7.5 fL (7.2-11.7); MONO # 0.8 K/uL (0.0-0.8); MONO % 8.9 % (0.0-10.0); NEUT # 7.1 K/uL (1.8-7.0); NEUT % 74.8 % (50.0-75.0); RBC 4.2 Mil/uL (4.40-5.90); RED CELL DISTRIBUTION WIDTH 12.5 % (11.5-14.5); WHITE BLOOD COUNT 9.5 K/uL (4.8-10.8)
[2017-07-23 07:07] LABS: ALB/GLOB RATIO 1.4 (1.0-2.1); ALBUMIN 3.7 g/dL (3.5-5.0); ALT/SGPT 34 U/L (21-72); AST/SGOT 20 U/L (17-59); BLOOD UREA NITROGEN 13 mg/dL (9-20); CALCIUM 8.5 mg/dl (8.6-10.4); GFR AFRICAN-AMERICAN > 60; GFR NON-AFRICAN AMERICAN > 60
[2017-07-23] MEDS: Rosuvastatin Calcium 2.5 mg Tab PO SCH (21:15)
--- NOTE | 2017-07-24 07:57 | CP.PCM.PN ---
<Tabitha Charles - Last Filed: 07/24/17 10:32> Subjective - Date & Time of Evaluation Date of Evaluation: 07/24/17 Time of Evaluation: 07:57 - Subjective Subjective: Medicine Progress Note: Hospitalist Service Patient seen and examined at bedside. Per nursing no acute events overnight. Patient is doing well, offers no complaints at this time. Denies headaches, dizziness, chest pain, palpitations, sob, abdominal pain, urinary symptoms, changes in bowel habits. Objective - Vital Signs/Intake and Output Vital Signs (last 24 hours): Temp Pulse Resp BP Pulse Ox 98.1 F 71 20 156/95 H 98 07/24/17 07:34 07/24/17 07:34 07/24/17 07:34 07/24/17 07:34 07/24/17 07:34 Intake and Output: 07/24/17 07/24/17 06:59 18:59 Intake Total 550 Balance 550 - Medications Medications: Current Medications Aspirin (Ecotrin) 81 mg PO DAILY [facility] Last Admin: 07/23/17 09:59 Dose: 81 mg Donepezil HCl (Aricept) 10 mg PO [facility] Last Admin: 07/23/17 21:15 Dose: 10 mg Famotidine (Pepcid) 20 mg PO DAILY [facility] Last Admin: 07/23/17 09:59 Dose: 20 mg Folic Acid (Folic Acid) 1 mg PO DAILY [facility] Last Admin: 07/23/17 09:59 Dose: 1 mg Losartan Potassium (Cozaar) 25 mg PO DAILY [facility] Last Admin: 07/23/17 09:59 Dose: 25 mg Memantine (Namenda) 10 mg PO DAILY [facility] Last Admin: 07/23/17 09:59 Dose: 10 mg Rosuvastatin Calcium (Crestor) 2.5 mg PO HS [facility] Last Admin: 07/23/17 21:15 Dose: 2.5 mg - Labs Labs: 07/23/17 06:45 07/23/17 06:45 PT 11.8 SECONDS (9.7-12.2) 06/21/17 22:04 INR 1.1 06/21/17 22:04 APTT 32 SECONDS (21-34) 06/21/17 22:04 - Constitutional Appears: Well, No Acute Distress - Head Exam Head Exam: ATRAUMATIC, NORMAL INSPECTION - Eye Exam Eye Exam: EOMI, Normal appearance - ENT Exam ENT Exam: Mucous Membranes Moist - Neck Exam Neck Exam: Full ROM - Respiratory Exam Respiratory Exam: Clear to Ausculation Bilateral, NORMAL BREATHING PATTERN. absent: Rales, Rhonchi, Wheezes - Cardiovascular Exam Cardiovascular Exam: REGULAR RHYTHM, +S1, +S2 - GI/Abdominal Exam GI & Abdominal Exam: Soft, Normal Bowel Sounds. absent: Guarding, Rigid, Tenderness - Rectal Exam Rectal Exam: Deferred - Extremities Exam Extremities Exam: Normal Inspection. absent: Calf Tenderness - Back Exam Back Exam: NORMAL INSPECTION - Neurological Exam Neurological Exam: Alert, Awake, CN II-XII Intact, Normal Gait, Oriented x3 - Psychiatric Exam Psychiatric exam: Normal Affect, Normal Mood - Skin Skin Exam: Dry, Normal Color, Warm Assessment and Plan - Assessment and Plan (Free Text) Assessment: 1.) Family History of Alzheimer's Disease Early Onset of Dementia * Family Hx: patient had Alzheimer's Disease at age 71 * Patient was told by a neurologist he has early signs of dementia * Psych consult Dr. Valente --> help appreciated * CT scan of the head is negative * X-ray shows a apical granuloma * Neurology Dr. Manzanares--> help appreciated * Completed EEG 07/07/17 * Discussed patient may complete further workup as outpatient. * Negative heavy metal screen * Discussed with Dr. Manzanares 07/07 * Repeat MRI 07/09: no acute intracranial abnormality. Mild chronic microangiopathic changes and mild age-related global parenchymal volume loss. * No new recommendations from Neurology at this time * Elopement risk, will continue 1:1 observation Please note workup is in prior admission when patient eloped on discharge. * CT scan of the chest is negative and unremarkable * UDS is negative * UA: urine only + for ketones * Brain MRI: Limited motion degraded study. No evidence of acute hemorrhage or infarct. Minor chronic white matter ischemic changes are felt be present. Moderate generalized volume loss. * RPR: nonreactive * HIV: negative * TSH: within normal and repeat within normal * Folate: normal and repeat within normal * B12: normal and repeat within normal * Recommended to patient to follow-up with neurology outpatient and to establish care in the [facility] upon discharge Medications: * Aricept 10mg PO qHS * Namenda 10mg daily * Folic acid 1mg PO daily * Crestor 2.5mg PO HS 2.) Anemia-->Resolved * Within normal * Monitor 3.) Hypokalemia-->resolved * resolved 4) Abnormal Chest xray-->resolved * CT Chest: no acute pathology noted; official report in the computer 5.) Impaired glucose tolerance * Hgba1c: 5.7 * Will need check in one year for a1c to prevent over diabetes 6.) HTN-->Chronic * Continue home Cozaar 25mg PO daily * Aspirin 81mg PO daily 7.) Prophylaxis * Pepcid 20mg PO daily * SCDs, patient is ambulatory * Court Appointed temporary guardian. Mr. Dangelo Thomas [phone]--> agreement to send patient to assisted living. however, this facility must be in [place] since [place] is [place]. Disposition: Patient has temporary guardianship, currently awaiting placement at assisted living facility in [place] (per discussion with embedded case manager) <Gary Damon - Last Filed: 07/24/17 19:00> Objective - Vital Signs/Intake and Output Vital Signs (last 24 hours): Temp Pulse Resp BP Pulse Ox 98.0 F 75 20 124/83 97 07/24/17 16:19 07/24/17 16:19 07/24/17 16:19 07/24/17 16:19 07/24/17 16:19 Intake and Output: 07/24/17 07/24/17 06:59 18:59 Intake Total 550 Balance 550 - Medications Medications: Current Medications Aspirin (Ecotrin) 81 mg PO DAILY [facility] Last Admin: 07/24/17 10:28 Dose: 81 mg Donepezil HCl (Aricept) 10 mg PO HS [facility] Last Admin: 07/23/17 21:15 Dose: 10 mg Famotidine (Pepcid) 20 mg PO DAILY [facility] Last Admin: 07/24/17 10:28 Dose: 20 mg Folic Acid (Folic Acid) 1 mg PO DAILY [facility] Last Admin: 07/24/17 10:30 Dose: 1 mg Losartan Potassium (Cozaar) 25 mg PO DAILY [facility] Last Admin: 07/24/17 10:30 Dose: 25 mg Memantine (Namenda) 10 mg PO DAILY [facility] Last Admin: 07/24/17 10:28 Dose: 10 mg Rosuvastatin Calcium (Crestor) 2.5 mg PO HS [facility] Last Admin: 07/23/17 21:15 Dose: 2.5 mg - Labs Labs: 07/23/17 06:45 07/23/17 06:45 PT 11.8 SECONDS (9.7-12.2) 06/21/17 22:04 INR 1.1 06/21/17 22:04 APTT 32 SECONDS (21-34) 06/21/17 22:04 Attending/Attestation - Attestation I have personally seen and examined this patient.: Yes I have fully participated in the care of the patient.: Yes I have reviewed all pertinent clinical information, including history, physical exam and plan: Yes Notes (Text): 07/24/17 18:59 Hospitalist Progress Note Patient was seen and examined at 1:20 PM 07/24/17 358 A Exam, assessment and plan were thoroughly gone over with the resident. HEENT, Cardio, Resp, GI, Ext, CN exams were unremarkable Assessments: 1). Dimentia: Aricept, Namenda, Folic Acid, Crestor, ASA 2). Anemia: resolved 3). Hypokalemia: resolved 4). Abnormal Chest X Ray (Granuloma?): CT Chest was unremarkable 5). Impaired Fasting Glucose: HgBA1C was 5.7 6). HTN: Cozaar 7). Prophylaxis: Pepcid, SCD, 1:1 observation for elopement risk Heparin was D/C'd 07/23/17 as patient is walking 10 laps around medical floor every hour MRI Brain without contrast showed NO acute intracranial abnormality, mild chronic microangiopathic changes, and mild age related global parenchymal Heavy Metal blood work up was negative. [facility] Services who applied for guardianship is making arrangements for placement. Gary Damon D.O.
[2017-07-24] MEDS: Rosuvastatin Calcium 2.5 mg Tab PO SCH (21:48)
--- NOTE | 2017-07-25 07:15 | CP.PCM.PN ---
<Tabitha Charles - Last Filed: 07/25/17 11:42> Subjective - Date & Time of Evaluation Date of Evaluation: 07/25/17 Time of Evaluation: 07:15 - Subjective Subjective: Medicine Progress Note: Hospitalist Service Patient seen and examined at bedside. Per nursing, no acute events overnight. Patient is doing well, offers no complaints at this time. Last BM was yesterday. Denies headaches, dizziness, cp, palpitations, sob, abdominal pain, urinary symptoms, changes in bowel habits. Objective - Vital Signs/Intake and Output Vital Signs (last 24 hours): Temp Pulse Resp BP Pulse Ox 98.5 F 71 20 128/81 98 07/25/17 00:00 07/25/17 00:00 07/25/17 00:00 07/25/17 00:00 07/25/17 00:00 Intake and Output: 07/25/17 07/25/17 06:59 18:59 Intake Total 840 Balance 840 - Medications Medications: Current Medications Aspirin (Ecotrin) 81 mg PO DAILY [facility] Last Admin: 07/24/17 10:28 Dose: 81 mg Donepezil HCl (Aricept) 10 mg PO HS [facility] Last Admin: 07/24/17 21:48 Dose: 10 mg Famotidine (Pepcid) 20 mg PO DAILY [facility] Last Admin: 07/24/17 10:28 Dose: 20 mg Folic Acid (Folic Acid) 1 mg PO DAILY [facility] Last Admin: 07/24/17 10:30 Dose: 1 mg Losartan Potassium (Cozaar) 25 mg PO DAILY [facility] Last Admin: 07/24/17 10:30 Dose: 25 mg Memantine (Namenda) 10 mg PO DAILY [facility] Last Admin: 07/24/17 10:28 Dose: 10 mg Rosuvastatin Calcium (Crestor) 2.5 mg PO HS [facility] Last Admin: 07/24/17 21:48 Dose: 2.5 mg - Labs Labs: 07/23/17 06:45 07/23/17 06:45 PT 11.8 SECONDS (9.7-12.2) 06/21/17 22:04 INR 1.1 06/21/17 22:04 APTT 32 SECONDS (21-34) 06/21/17 22:04 - Constitutional Appears: Well, No Acute Distress - Head Exam Head Exam: ATRAUMATIC, NORMAL INSPECTION - Eye Exam Eye Exam: EOMI, Normal appearance - ENT Exam ENT Exam: Mucous Membranes Moist - Respiratory Exam Respiratory Exam: Clear to Ausculation Bilateral, NORMAL BREATHING PATTERN. absent: Rales, Rhonchi, Wheezes - Cardiovascular Exam Cardiovascular Exam: REGULAR RHYTHM, +S1, +S2 - GI/Abdominal Exam GI & Abdominal Exam: Soft, Normal Bowel Sounds. absent: Firm, Guarding, Rigid, Tenderness - Extremities Exam Extremities Exam: Normal Inspection. absent: Calf Tenderness - Neurological Exam Neurological Exam: Alert, Awake, CN II-XII Intact - Psychiatric Exam Psychiatric exam: Normal Affect, Normal Mood - Skin Skin Exam: Dry, Normal Color, Warm Assessment and Plan - Assessment and Plan (Free Text) Assessment: 1.) Family History of Alzheimer's Disease Early Onset of Dementia * Family Hx: patient had Alzheimer's Disease at age 71 * Patient was told by a neurologist he has early signs of dementia * Psych consult Dr. Valente --> help appreciated * CT scan of the head is negative * X-ray shows a apical granuloma * Neurology Dr. Manzanares--> help appreciated * Completed EEG 07/07/17 * Discussed patient may complete further workup as outpatient. * Negative heavy metal screen * Discussed with Dr. Manzanares 07/07 * Repeat MRI 07/09: no acute intracranial abnormality. Mild chronic microangiopathic changes and mild age-related global parenchymal volume loss. * No new recommendations from Neurology at this time * Elopement risk, will continue 1:1 observation Please note workup is in prior admission when patient eloped on discharge. * CT scan of the chest is negative and unremarkable * UDS is negative * UA: urine only + for ketones * Brain MRI: Limited motion degraded study. No evidence of acute hemorrhage or infarct. Minor chronic white matter ischemic changes are felt be present. Moderate generalized volume loss. * RPR: nonreactive * HIV: negative * TSH: within normal and repeat within normal * Folate: normal and repeat within normal * B12: normal and repeat within normal * Recommended to patient to follow-up with neurology outpatient and to establish care in the [facility] upon discharge Medications: * Aricept 10mg PO qHS * Namenda 10mg daily * Folic acid 1mg PO daily * Crestor 2.5mg PO HS 2.) Anemia-->Resolved * Within normal * Monitor 3.) Hypokalemia-->resolved * resolved 4) Abnormal Chest xray-->resolved * CT Chest: no acute pathology noted; official report in the computer 5.) Impaired glucose tolerance * Hgba1c: 5.7 * Will need check in one year for a1c to prevent over diabetes 6.) HTN-->Chronic * Continue home Cozaar 25mg PO daily * Aspirin 81mg PO daily 7.) Prophylaxis * Pepcid 20mg PO daily * SCDs, patient is ambulating, heparin discontinued * Court Appointed temporary guardian. Mr. Dangelo Thomas [phone]--> agreement to send patient to assisted living. however, this facility must be in [place] since [place] is [place]. Disposition: Patient has temporary guardianship, currently awaiting placement at assisted living facility in [place] (per discussion with case assembler) <Gary Damon - Last Filed: 07/25/17 17:08> Objective - Vital Signs/Intake and Output Vital Signs (last 24 hours): Temp Pulse Resp BP Pulse Ox 97.7 F 86 20 116/83 99 07/25/17 15:00 07/25/17 15:00 07/25/17 15:00 07/25/17 15:00 07/25/17 15:00 Intake and Output: 07/25/17 07/25/17 06:59 18:59 Intake Total 840 300 Output Total 500 Balance 840 -200 - Medications Medications: Current Medications Aspirin (Ecotrin) 81 mg PO DAILY [facility] Last Admin: 07/25/17 09:46 Dose: 81 mg Donepezil HCl (Aricept) 10 mg PO HS [facility] Last Admin: 07/24/17 21:48 Dose: 10 mg Famotidine (Pepcid) 20 mg PO DAILY [facility] Last Admin: 07/25/17 09:46 Dose: 20 mg Folic Acid (Folic Acid) 1 mg PO DAILY [facility] Last Admin: 07/25/17 09:46 Dose: 1 mg Losartan Potassium (Cozaar) 25 mg PO DAILY [facility] Last Admin: 07/25/17 09:46 Dose: 25 mg Memantine (Namenda) 10 mg PO DAILY [facility] Last Admin: 07/25/17 09:46 Dose: 10 mg Rosuvastatin Calcium (Crestor) 2.5 mg PO HS [facility] Last Admin: 07/24/17 21:48 Dose: 2.5 mg - Labs Labs: 07/23/17 06:45 07/23/17 06:45 PT 11.8 SECONDS (9.7-12.2) 06/21/17 22:04 INR 1.1 06/21/17 22:04 APTT 32 SECONDS (21-34) 06/21/17 22:04 Attending/Attestation - Attestation I have personally seen and examined this patient.: Yes I have fully participated in the care of the patient.: Yes I have reviewed all pertinent clinical information, including history, physical exam and plan: Yes Notes (Text): 07/25/17 17:07 Hospitalist Progress Note Patient was seen and examined at 2:45 PM 07/25/17 358 A Exam, assessment and plan were thoroughly gone over with the resident. HEENT, Cardio, Resp, GI, Ext, CN exams were unremarkable Assessments: 1). Dimentia: Aricept, Namenda, Folic Acid, Crestor, ASA 2). Anemia: resolved 3). Hypokalemia: resolved 4). Abnormal Chest X Ray (Granuloma?): CT Chest was unremarkable 5). Impaired Fasting Glucose: HgBA1C was 5.7 6). HTN: Cozaar 7). Prophylaxis: Pepcid, SCD, 1:1 observation for elopement risk Heparin was D/C'd 07/23/17 as patient is walking 10 laps around medical floor every hour MRI Brain without contrast showed NO acute intracranial abnormality, mild chronic microangiopathic changes, and mild age related global parenchymal Heavy Metal blood work up was negative. [facility] Protective Services who applied for guardianship is making arrangements for placement. Patient has court date on 08/09/17. Gary Damon D.O.
--- NOTE | 2017-07-25 08:25 | CP.PCM.PN ---
Subjective - Date & Time of Evaluation Date of Evaluation: 07/25/17 Time of Evaluation: 08:23 - Subjective Subjective: Mr. Nelson was seen and examined at the bedside. He is alert, oriented. He denies any headache, dizziness, lightheadedness, numbness, weakness, nausea, or vomiting. He is able to tolerate PO intake. He remains on 1:1 sitter for patient safety. There was no untoward events overnight. Objective - Vital Signs/Intake and Output Vital Signs (last 24 hours): Temp Pulse Resp BP Pulse Ox 98.5 F 71 20 128/81 98 07/25/17 00:00 07/25/17 00:00 07/25/17 00:00 07/25/17 00:00 07/25/17 00:00 Intake and Output: 07/25/17 07/25/17 06:59 18:59 Intake Total 840 Balance 840 - Medications Medications: Current Medications Aspirin (Ecotrin) 81 mg PO DAILY [facility] Last Admin: 07/24/17 10:28 Dose: 81 mg Donepezil HCl (Aricept) 10 mg PO [facility] Last Admin: 07/24/17 21:48 Dose: 10 mg Famotidine (Pepcid) 20 mg PO DAILY [facility] Last Admin: 07/24/17 10:28 Dose: 20 mg Folic Acid (Folic Acid) 1 mg PO DAILY [facility] Last Admin: 07/24/17 10:30 Dose: 1 mg Losartan Potassium (Cozaar) 25 mg PO DAILY [facility] Last Admin: 07/24/17 10:30 Dose: 25 mg Memantine (Namenda) 10 mg PO DAILY [facility] Last Admin: 07/24/17 10:28 Dose: 10 mg Rosuvastatin Calcium (Crestor) 2.5 mg PO HS [facility] Last Admin: 07/24/17 21:48 Dose: 2.5 mg - Labs Labs: 07/23/17 06:45 07/23/17 06:45 PT 11.8 SECONDS (9.7-12.2) 06/21/17 22:04 INR 1.1 06/21/17 22:04 APTT 32 SECONDS (21-34) 06/21/17 22:04 - Constitutional Appears: No Acute Distress - Head Exam Head Exam: ATRAUMATIC - Neurological Exam Neurological Exam: Alert, Awake, Oriented x3 Neuro motor strength exam: Left Upper Extremity: 5, Right Upper Extremity: 5, Left Lower Extremity: 5, Right Lower Extremity: 5 Additional comments: Neurological unchanged from previous examination. Assessment and Plan (1) Dementia Assessment & Plan: Case discussed with Dr. Manzanares, continue all current medical regimen. There is no new recommendations from neurology. Status: Chronic
[2017-07-25] MEDS: Rosuvastatin Calcium 2.5 mg Tab PO SCH (21:57)
--- NOTE | 2017-07-26 07:09 | CP.PCM.PN ---
<Tabitha Charles - Last Filed: 07/26/17 11:12> Subjective - Date & Time of Evaluation Date of Evaluation: 07/26/17 Time of Evaluation: 07:08 - Subjective Subjective: Medicine Progress Note: Hospitalist Service Patient seen and examined at bedside. Per nursing no acute events overnight. Patient is doing well, offers no complaints at this time. States that he is making laps in the hallway throughout the day. Denies headaches, dizziness, cp, palpitations, sob, abdominal pain, urinary symptoms, changes in bowel habits. Objective - Vital Signs/Intake and Output Vital Signs (last 24 hours): Temp Pulse Resp BP Pulse Ox 98.1 F 72 20 122/79 98 07/25/17 23:46 07/25/17 23:46 07/25/17 23:46 07/25/17 23:46 07/25/17 23:46 Intake and Output: 07/26/17 07/26/17 06:59 18:59 Intake Total 660 Output Total 600 Balance 60 - Medications Medications: Current Medications Aspirin (Ecotrin) 81 mg PO DAILY [facility] Last Admin: 07/25/17 09:46 Dose: 81 mg Donepezil HCl (Aricept) 10 mg PO HS [facility] Last Admin: 07/25/17 21:57 Dose: 10 mg Famotidine (Pepcid) 20 mg PO DAILY [facility] Last Admin: 07/25/17 09:46 Dose: 20 mg Folic Acid (Folic Acid) 1 mg PO DAILY [facility] Last Admin: 07/25/17 09:46 Dose: 1 mg Losartan Potassium (Cozaar) 25 mg PO DAILY [facility] Last Admin: 07/25/17 09:46 Dose: 25 mg Memantine (Namenda) 10 mg PO DAILY [facility] Last Admin: 07/25/17 09:46 Dose: 10 mg Rosuvastatin Calcium (Crestor) 2.5 mg PO HS [facility] Last Admin: 07/25/17 21:57 Dose: 2.5 mg - Labs Labs: 07/23/17 06:45 07/23/17 06:45 PT 11.8 SECONDS (9.7-12.2) 06/21/17 22:04 INR 1.1 06/21/17 22:04 APTT 32 SECONDS (21-34) 06/21/17 22:04 - Constitutional Appears: Well, No Acute Distress - Head Exam Head Exam: ATRAUMATIC, NORMAL INSPECTION - Eye Exam Eye Exam: EOMI, Normal appearance - ENT Exam ENT Exam: Mucous Membranes Moist - Neck Exam Neck Exam: Full ROM - Respiratory Exam Respiratory Exam: Clear to Ausculation Bilateral, NORMAL BREATHING PATTERN. absent: Rales, Rhonchi, Wheezes - Cardiovascular Exam Cardiovascular Exam: REGULAR RHYTHM, +S1, +S2. absent: Murmur - GI/Abdominal Exam GI & Abdominal Exam: Soft, Normal Bowel Sounds. absent: Firm, Guarding, Rigid, Tenderness - Rectal Exam Rectal Exam: Deferred - Extremities Exam Extremities Exam: Normal Capillary Refill, Normal Inspection. absent: Calf Tenderness - Back Exam Back Exam: NORMAL INSPECTION - Neurological Exam Neurological Exam: Alert, Awake, CN II-XII Intact, Normal Gait - Psychiatric Exam Psychiatric exam: Normal Affect, Normal Mood - Skin Skin Exam: Dry, Normal Color, Warm Assessment and Plan - Assessment and Plan (Free Text) Assessment: 1.) Family History of Alzheimer's Disease Early Onset of Dementia * Family Hx: patient had Alzheimer's Disease at age 71 * Patient was told by a neurologist he has early signs of dementia * Psych consult Dr. Valente --> help appreciated * CT scan of the head is negative * X-ray shows a apical granuloma * Neurology Dr. Manzanares--> help appreciated * Completed EEG 07/07/17 * Discussed patient may complete further workup as outpatient. * Negative heavy metal screen * Discussed with Dr. Manzanares 07/07 * Repeat MRI 07/09: no acute intracranial abnormality. Mild chronic microangiopathic changes and mild age-related global parenchymal volume loss. * No new recommendations from Neurology at this time * Elopement risk, will continue 1:1 observation Please note workup is in prior admission when patient eloped on discharge. * CT scan of the chest is negative and unremarkable * UDS is negative * UA: urine only + for ketones * Brain MRI: Limited motion degraded study. No evidence of acute hemorrhage or infarct. Minor chronic white matter ischemic changes are felt be present. Moderate generalized volume loss. * RPR: nonreactive * HIV: negative * TSH: within normal and repeat within normal * Folate: normal and repeat within normal * B12: normal and repeat within normal * Recommended to patient to follow-up with neurology outpatient and to establish care in the [facility] upon discharge Medications: * Aricept 10mg PO qHS * Namenda 10mg daily * Folic acid 1mg PO daily * Crestor 2.5mg PO HS 2.) Anemia-->Resolved * Within normal * Monitor 3.) Hypokalemia-->resolved * resolved 4) Abnormal Chest xray-->resolved * CT Chest: no acute pathology noted; official report in the computer 5.) Impaired glucose tolerance * Hgba1c: 5.7 * Will need check in one year for a1c to prevent over diabetes 6.) HTN-->Chronic * Continue home Cozaar 25mg PO daily * Aspirin 81mg PO daily 7.) Prophylaxis * Pepcid 20mg PO daily * SCDs, patient is ambulating, heparin discontinued * Court Appointed temporary guardian. Mr. Dangelo Thomas [phone]--> agreement to send patient to assisted living. however, this facility must [place] in [place] since [place]. Disposition: Patient has temporary guardianship, currently awaiting placement at assisted living facility in [place] (per discussion with case briefer). Patient has a court date for 08/09/17. <Gary Damon - Last Filed: 07/26/17 18:45> Objective - Vital Signs/Intake and Output Vital Signs (last 24 hours): Temp Pulse Resp BP Pulse Ox 97.6 F 73 20 114/77 99 07/26/17 15:14 07/26/17 15:14 07/26/17 15:14 07/26/17 15:14 07/26/17 15:14 Intake and Output: 07/26/17 07/26/17 06:59 18:59 Intake Total 660 500 Output Total 600 Balance 60 500 - Medications Medications: Current Medications Aspirin (Ecotrin) 81 mg PO DAILY [facility] Last Admin: 07/26/17 10:31 Dose: 81 mg Donepezil HCl (Aricept) 10 mg PO HS [facility] Last Admin: 07/25/17 21:57 Dose: 10 mg Famotidine (Pepcid) 20 mg PO DAILY [facility] Last Admin: 07/26/17 10:31 Dose: 20 mg Folic Acid (Folic Acid) 1 mg PO DAILY [facility] Last Admin: 07/26/17 10:31 Dose: 1 mg Losartan Potassium (Cozaar) 25 mg PO DAILY [facility] Last Admin: 07/26/17 10:31 Dose: 25 mg Memantine (Namenda) 10 mg PO DAILY [facility] Last Admin: 07/26/17 10:31 Dose: 10 mg Rosuvastatin Calcium (Crestor) 2.5 mg PO HS [facility] Last Admin: 07/25/17 21:57 Dose: 2.5 mg - Labs Labs: 07/23/17 06:45 07/23/17 06:45 PT 11.8 SECONDS (9.7-12.2) 06/21/17 22:04 INR 1.1 06/21/17 22:04 APTT 32 SECONDS (21-34) 06/21/17 22:04 Attending/Attestation - Attestation I have personally seen and examined this patient.: Yes I have fully participated in the care of the patient.: Yes I have reviewed all pertinent clinical information, including history, physical exam and plan: Yes Notes (Text): 07/26/17 18:45 Hospitalist Progress Note Patient was seen and examined at 11:00 AM 07/26/17 358 A Exam, assessment and plan were thoroughly gone over with the resident. HEENT, Cardio, Resp, GI, Ext, CN exams were unremarkable Assessments: 1). Dimentia: Aricept, Namenda, Folic Acid, Crestor, ASA 2). Anemia: resolved 3). Hypokalemia: resolved 4). Abnormal Chest X Ray (Granuloma?): CT Chest was unremarkable 5). Impaired Fasting Glucose: HgBA1C was 5.7 6). HTN: Cozaar 7). Prophylaxis: Pepcid, SCD, 1:1 observation for elopement risk Heparin was D/C'd 07/23/17 as patient is walking 10 laps around medical floor every hour MRI Brain without contrast showed NO acute intracranial abnormality, mild chronic microangiopathic changes, and mild age related global parenchymal Heavy Metal blood work up was negative. [facility] Services who applied for guardianship is making arrangements for placement. Patient has court date on 08/09/17. Gary Damon D.O.
--- NOTE | 2017-07-26 07:23 | CP.PCM.PN ---
Subjective - Date & Time of Evaluation Date of Evaluation: 07/26/17 Time of Evaluation: 07:20 - Subjective Subjective: Mr. Nelson was seen and examined atthe bedside. He is alert, oriented. He denies any headache, dizziness, lightheadedness, blurred vision, nausea, or vomiting. He states of having tons of patience for all the treatments that he needs. He remains with 1:1 sitter for patient safety. There was no untoward events overnight. Objective - Vital Signs/Intake and Output Vital Signs (last 24 hours): Temp Pulse Resp BP Pulse Ox 98.1 F 72 20 122/79 98 07/25/17 23:46 07/25/17 23:46 07/25/17 23:46 07/25/17 23:46 07/25/17 23:46 Intake and Output: 07/26/17 07/26/17 06:59 18:59 Intake Total 660 Output Total 600 Balance 60 - Medications Medications: Current Medications Aspirin (Ecotrin) 81 mg PO DAILY [facility] Last Admin: 07/25/17 09:46 Dose: 81 mg Donepezil HCl (Aricept) 10 mg PO [facility] Last Admin: 07/25/17 21:57 Dose: 10 mg Famotidine (Pepcid) 20 mg PO DAILY [facility] Last Admin: 07/25/17 09:46 Dose: 20 mg Folic Acid (Folic Acid) 1 mg PO DAILY [facility] Last Admin: 07/25/17 09:46 Dose: 1 mg Losartan Potassium (Cozaar) 25 mg PO DAILY [facility] Last Admin: 07/25/17 09:46 Dose: 25 mg Memantine (Namenda) 10 mg PO DAILY [facility] Last Admin: 07/25/17 09:46 Dose: 10 mg Rosuvastatin Calcium (Crestor) 2.5 mg PO HS [facility] Last Admin: 07/25/17 21:57 Dose: 2.5 mg - Labs Labs: 07/23/17 06:45 07/23/17 06:45 PT 11.8 SECONDS (9.7-12.2) 06/21/17 22:04 INR 1.1 06/21/17 22:04 APTT 32 SECONDS (21-34) 06/21/17 22:04 - Constitutional Appears: No Acute Distress - Head Exam Head Exam: NORMAL INSPECTION - Neurological Exam Neurological Exam: Alert, Awake Neuro motor strength exam: Left Upper Extremity: 5, Right Upper Extremity: 5, Left Lower Extremity: 5, Right Lower Extremity: 5 Additional comments: Neurological unchanged from previous examination. Assessment and Plan (1) Dementia Assessment & Plan: Case discussed with Dr. Manzanares, continue all current medical treatment. There is no new recommendation from neurology. Status: Chronic
[2017-07-26] MEDS: Rosuvastatin Calcium 2.5 mg Tab PO SCH (21:10)
--- NOTE | 2017-07-27 08:38 | CP.PCM.PN ---
Subjective - Date & Time of Evaluation Date of Evaluation: 07/27/17 Time of Evaluation: 08:35 - Subjective Subjective: Mr. Nelson was seen and examined at the bedside. He is alert, oriented and denies any headache, dizziness, blurred vision, lightheadedness. numbness, nausea, or vomiting. He is able to participate in a pleasant conversation. He remains on 1: 1 sitter for patient safety. There was no untoward events overnight. Objective - Vital Signs/Intake and Output Vital Signs (last 24 hours): Temp Pulse Resp BP Pulse Ox 98.1 F 83 20 121/85 98 07/27/17 08:11 07/27/17 08:11 07/27/17 08:11 07/27/17 08:11 07/27/17 08:11 Intake and Output: 07/27/17 07/27/17 06:59 18:59 Intake Total 540 Output Total 800 Balance -260 - Medications Medications: Current Medications Aspirin (Ecotrin) 81 mg PO DAILY [facility] Last Admin: 07/26/17 10:31 Dose: 81 mg Donepezil HCl (Aricept) 10 mg PO [facility] Last Admin: 07/26/17 21:10 Dose: 10 mg Famotidine (Pepcid) 20 mg PO DAILY [facility] Last Admin: 07/26/17 10:31 Dose: 20 mg Folic Acid (Folic Acid) 1 mg PO DAILY [facility] Last Admin: 07/26/17 10:31 Dose: 1 mg Losartan Potassium (Cozaar) 25 mg PO DAILY [facility] Last Admin: 07/26/17 10:31 Dose: 25 mg Memantine (Namenda) 10 mg PO DAILY [facility] Last Admin: 07/26/17 10:31 Dose: 10 mg Rosuvastatin Calcium (Crestor) 2.5 mg PO [facility] Last Admin: 07/26/17 21:10 Dose: 2.5 mg - Labs Labs: 07/23/17 06:45 07/23/17 06:45 PT 11.8 SECONDS (9.7-12.2) 06/21/17 22:04 INR 1.1 06/21/17 22:04 APTT 32 SECONDS (21-34) 06/21/17 22:04 - Constitutional Appears: No Acute Distress - Head Exam Head Exam: NORMAL INSPECTION - Neurological Exam Neurological Exam: Alert, Awake, Oriented x3 Neuro motor strength exam: Left Upper Extremity: 5, Right Upper Extremity: 5, Left Lower Extremity: 5, Right Lower Extremity: 5 Additional comments: Neurological unchanged from previous examination. Assessment and Plan (1) Dementia Assessment & Plan: Case discussed with Dr. Manzanares, continue all current medical regimen. There is no new recommendation from neurology. Status: Chronic
--- NOTE | 2017-07-27 09:40 | CP.PCM.PN ---
<Tabitha Charles - Last Filed: 07/27/17 14:49> Subjective - Date & Time of Evaluation Date of Evaluation: 07/27/17 Time of Evaluation: 09:40 - Subjective Subjective: Medicine Progress Note: Hospitalist Service Patient seen and examined at bedside. Per nursing no acute events overnight. Patient is doing well, resting and watching TV. Offers no complaints at this time. Denies headaches, dizziness, cp, palpitations, sob, abdominal pain, urinary symptoms, changes in bowel habits. Objective - Vital Signs/Intake and Output Vital Signs (last 24 hours): Temp Pulse Resp BP Pulse Ox 98.1 F 83 20 121/85 98 07/27/17 08:11 07/27/17 08:11 07/27/17 08:11 07/27/17 08:11 07/27/17 08:11 Intake and Output: 07/27/17 07/27/17 06:59 18:59 Intake Total 540 Output Total 800 Balance -260 - Medications Medications: Current Medications Aspirin (Ecotrin) 81 mg PO DAILY [facility] Last Admin: 07/27/17 08:59 Dose: 81 mg Donepezil HCl (Aricept) 10 mg PO HS [facility] Last Admin: 07/26/17 21:10 Dose: 10 mg Famotidine (Pepcid) 20 mg PO DAILY [facility] Last Admin: 07/27/17 08:59 Dose: 20 mg Folic Acid (Folic Acid) 1 mg PO DAILY [facility] Last Admin: 07/27/17 08:59 Dose: 1 mg Losartan Potassium (Cozaar) 25 mg PO DAILY [facility] Last Admin: 07/27/17 08:59 Dose: 25 mg Memantine (Namenda) 10 mg PO DAILY [facility] Last Admin: 07/27/17 08:59 Dose: 10 mg Rosuvastatin Calcium (Crestor) 2.5 mg PO HS [facility] Last Admin: 07/26/17 21:10 Dose: 2.5 mg - Labs Labs: 07/23/17 06:45 07/23/17 06:45 PT 11.8 SECONDS (9.7-12.2) 06/21/17 22:04 INR 1.1 06/21/17 22:04 APTT 32 SECONDS (21-34) 06/21/17 22:04 - Constitutional Appears: Well, No Acute Distress - Head Exam Head Exam: ATRAUMATIC, NORMAL INSPECTION - Eye Exam Eye Exam: EOMI, Normal appearance - ENT Exam ENT Exam: Mucous Membranes Moist - Respiratory Exam Respiratory Exam: Clear to Ausculation Bilateral, NORMAL BREATHING PATTERN. absent: Rales, Rhonchi, Wheezes - Cardiovascular Exam Cardiovascular Exam: REGULAR RHYTHM, +S1, +S2 - GI/Abdominal Exam GI & Abdominal Exam: Soft, Normal Bowel Sounds. absent: Firm, Guarding, Rigid, Tenderness - Extremities Exam Extremities Exam: Full ROM, Normal Inspection. absent: Calf Tenderness - Back Exam Back Exam: NORMAL INSPECTION - Neurological Exam Neurological Exam: Alert, Awake, CN II-XII Intact, Normal Gait - Psychiatric Exam Psychiatric exam: Normal Affect, Normal Mood - Skin Skin Exam: Normal Color, Warm Assessment and Plan - Assessment and Plan (Free Text) Assessment: 1.) Family History of Alzheimer's Disease Early Onset of Dementia * Family Hx: patient had Alzheimer's Disease at age 71 * Patient was told by a neurologist he has early signs of dementia * Psych consult Dr. Valente --> help appreciated * CT scan of the head is negative * X-ray shows a apical granuloma * Neurology Dr. Manzanares--> help appreciated * Completed EEG 07/07/17 * Discussed patient may complete further workup as outpatient. * Negative heavy metal screen * Discussed with Dr. Manzanares 07/07 * Repeat MRI 07/09: no acute intracranial abnormality. Mild chronic microangiopathic changes and mild age-related global parenchymal volume loss. * No new recommendations from Neurology at this time * Elopement risk, will continue 1:1 observation Please note workup is in prior admission when patient eloped on discharge. * CT scan of the chest is negative and unremarkable * UDS is negative * UA: urine only + for ketones * Brain MRI: Limited motion degraded study. No evidence of acute hemorrhage or infarct. Minor chronic white matter ischemic changes are felt be present. Moderate generalized volume loss. * RPR: nonreactive * HIV: negative * TSH: within normal and repeat within normal * Folate: normal and repeat within normal * B12: normal and repeat within normal * Recommended to patient to follow-up with neurology outpatient and to establish care in the [facility] upon discharge Medications: * Aricept 10mg PO qHS * Namenda 10mg daily * Folic acid 1mg PO daily * Crestor 2.5mg PO HS 2.) Anemia-->Resolved * Within normal * Monitor 3.) Hypokalemia-->resolved * resolved 4) Abnormal Chest xray-->resolved * CT Chest: no acute pathology noted; official report in the computer 5.) Impaired glucose tolerance * Hgba1c: 5.7 * Will need check in one year for a1c to prevent over diabetes 6.) HTN-->Chronic * Continue home Cozaar 25mg PO daily * Aspirin 81mg PO daily 7.) Prophylaxis * Pepcid 20mg PO daily * SCDs, patient is ambulating, heparin discontinued * Court Appointed temporary guardian. Mr. Dangelo Thomas [phone]--> agreement to send patient to assisted living. however, this facility must [place] in [place] since [place]. Disposition: Patient has temporary guardianship, currently awaiting placement at assisted living facility in [place] (per discussion with egg caser). Patient has a court date for 08/09/17. <Gary Damon - Last Filed: 07/27/17 18:12> Objective - Vital Signs/Intake and Output Vital Signs (last 24 hours): Temp Pulse Resp BP Pulse Ox 98.7 F 94 H 20 169/84 H 99 07/27/17 15:25 07/27/17 15:25 07/27/17 15:25 07/27/17 15:25 07/27/17 15:25 Intake and Output: 07/27/17 07/27/17 06:59 18:59 Intake Total 540 500 Output Total 800 Balance -260 500 - Medications Medications: Current Medications Aspirin (Ecotrin) 81 mg PO DAILY [facility] Last Admin: 07/27/17 08:59 Dose: 81 mg Donepezil HCl (Aricept) 10 mg PO HS [facility] Last Admin: 07/26/17 21:10 Dose: 10 mg Famotidine (Pepcid) 20 mg PO DAILY [facility] Last Admin: 07/27/17 08:59 Dose: 20 mg Folic Acid (Folic Acid) 1 mg PO DAILY [facility] Last Admin: 07/27/17 08:59 Dose: 1 mg Losartan Potassium (Cozaar) 25 mg PO DAILY [facility] Last Admin: 07/27/17 08:59 Dose: 25 mg Memantine (Namenda) 10 mg PO DAILY [facility] Last Admin: 07/27/17 08:59 Dose: 10 mg Rosuvastatin Calcium (Crestor) 2.5 mg PO HS [facility] Last Admin: 07/26/17 21:10 Dose: 2.5 mg - Labs Labs: 07/23/17 06:45 07/23/17 06:45 PT 11.8 SECONDS (9.7-12.2) 06/21/17 22:04 INR 1.1 06/21/17 22:04 APTT 32 SECONDS (21-34) 06/21/17 22:04 Attending/Attestation - Attestation I have personally seen and examined this patient.: Yes I have fully participated in the care of the patient.: Yes I have reviewed all pertinent clinical information, including history, physical exam and plan: Yes Notes (Text): 07/27/17 18:10 Hospitalist Progress Note Patient was seen and examined at 12:30 PM 07/27/17 358 A Exam, assessment and plan were thoroughly gone over with the resident. HEENT, Cardio, Resp, GI, Ext, CN exams were unremarkable Assessments: 1). Dimentia: Aricept, Namenda, Folic Acid, Crestor, ASA 2). Anemia: resolved 3). Hypokalemia: resolved 4). Abnormal Chest X Ray (Granuloma?): CT Chest was unremarkable 5). Impaired Fasting Glucose: HgBA1C was 5.7 6). HTN: Cozaar 7). Prophylaxis: Pepcid, SCD, 1:1 observation for elopement risk, patient is walking 10 laps around the medical floor every hour MRI Brain without contrast showed NO acute intracranial abnormality, mild chronic microangiopathic changes, and mild age related global parenchymal Heavy Metal blood work up was negative. [facility] Protective [facility] who applied for guardianship is making arrangements for placement. Patient has court date on 08/09/17. Gary Damon D.O.
[2017-07-27] MEDS: Rosuvastatin Calcium 2.5 mg Tab PO SCH (21:57)
--- NOTE | 2017-07-28 01:40 | CP.PCM.PN ---
<MartinezAdi Hugo - Last Filed: 07/28/17 01:38> Subjective - Date & Time of Evaluation Date of Evaluation: 07/28/17 Time of Evaluation: 01:38 - Subjective Subjective: Medicine Progress Note: Hospitalist Service Patient seen and examined at bedside. Per nursing no acute events overnight. Patient is doing well, resting and watching TV. Offers no complaints at this time. Denies headaches, dizziness, cp, palpitations, sob, abdominal pain, urinary symptoms, changes in bowel habits. Objective - Vital Signs/Intake and Output Vital Signs (last 24 hours): Temp Pulse Resp BP Pulse Ox 98.7 F 94 H 20 169/84 H 99 07/27/17 15:25 07/27/17 15:25 07/27/17 15:25 07/27/17 15:25 07/27/17 15:25 Intake and Output: 07/27/17 07/28/17 18:59 06:59 Intake Total 500 Balance 500 - Medications Medications: Current Medications Aspirin (Ecotrin) 81 mg PO DAILY [facility] Last Admin: 07/27/17 08:59 Dose: 81 mg Donepezil HCl (Aricept) 10 mg PO HS [facility] Last Admin: 07/27/17 21:57 Dose: 10 mg Famotidine (Pepcid) 20 mg PO DAILY [facility] Last Admin: 07/27/17 08:59 Dose: 20 mg Folic Acid (Folic Acid) 1 mg PO DAILY [facility] Last Admin: 07/27/17 08:59 Dose: 1 mg Losartan Potassium (Cozaar) 25 mg PO DAILY [facility] Last Admin: 07/27/17 08:59 Dose: 25 mg Memantine (Namenda) 10 mg PO DAILY [facility] Last Admin: 07/27/17 08:59 Dose: 10 mg Rosuvastatin Calcium (Crestor) 2.5 mg PO HS [facility] Last Admin: 07/27/17 21:57 Dose: 2.5 mg - Labs Labs: 07/23/17 06:45 07/23/17 06:45 PT 11.8 SECONDS (9.7-12.2) 06/21/17 22:04 INR 1.1 06/21/17 22:04 APTT 32 SECONDS (21-34) 06/21/17 22:04 - Additional Findings Additional findings: - Constitutional Appears: Well, No Acute Distress - Head Exam Head Exam: ATRAUMATIC, NORMAL INSPECTION - Eye Exam Eye Exam: EOMI, Normal appearance - ENT Exam ENT Exam: Mucous Membranes Moist - Respiratory Exam Respiratory Exam: Clear to Ausculation Bilateral, NORMAL BREATHING PATTERN. absent: Rales, Rhonchi, Wheezes - Cardiovascular Exam Cardiovascular Exam: REGULAR RHYTHM, +S1, +S2 - GI/Abdominal Exam GI & Abdominal Exam: Soft, Normal Bowel Sounds. absent: Firm, Guarding, Rigid, Tenderness - Extremities Exam Extremities Exam: Full ROM, Normal Inspection. absent: Calf Tenderness - Back Exam Back Exam: NORMAL INSPECTION - Neurological Exam Neurological Exam: Alert, Awake, CN II-XII Intact, Normal Gait - Psychiatric Exam Psychiatric exam: Normal Affect, Normal Mood - Skin Skin Exam: Normal Color, Warm Assessment and Plan - Assessment and Plan (Free Text) Assessment: 1.) Family History of Alzheimer's Disease Early Onset of Dementia * Family Hx: patient had Alzheimer's Disease at age 71 * Patient was told by a neurologist he has early signs of dementia * Psych consult Dr. Valente --> help appreciated * CT scan of the head is negative * X-ray shows a apical granuloma * Neurology Dr. Manzanares--> help appreciated * Completed EEG 07/07/17 * Discussed patient may complete further workup as outpatient. * Negative heavy metal screen * Discussed with Dr. Manzanares 07/07 * Repeat MRI 07/09: no acute intracranial abnormality. Mild chronic microangiopathic changes and mild age-related global parenchymal volume loss. * No new recommendations from Neurology at this time * Elopement risk, will continue 1:1 observation Please note workup is in prior admission when patient eloped on discharge. * CT scan of the chest is negative and unremarkable * UDS is negative * UA: urine only + for ketones * Brain MRI: Limited motion degraded study. No evidence of acute hemorrhage or infarct. Minor chronic white matter ischemic changes are felt be present. Moderate generalized volume loss. * RPR: nonreactive * HIV: negative * TSH: within normal and repeat within normal * Folate: normal and repeat within normal * B12: normal and repeat within normal * Recommended to patient to follow-up with neurology outpatient and to establish care in the [facility] upon discharge Medications: * Aricept 10mg PO qHS * Namenda 10mg daily * Folic acid 1mg PO daily * Crestor 2.5mg PO HS 2.) Anemia-->Resolved * Within normal * Monitor 3.) Hypokalemia-->resolved * resolved 4) Abnormal Chest xray-->resolved * CT Chest: no acute pathology noted; official report in the computer 5.) Impaired glucose tolerance * Hgba1c: 5.7 * Will need check in one year for a1c to prevent over diabetes 6.) HTN-->Chronic * Continue home Cozaar 25mg PO daily * Aspirin 81mg PO daily 7.) Prophylaxis * Pepcid 20mg PO daily * SCDs, patient is ambulating, heparin discontinued * Court Appointed temporary guardian. Mr. Dangelo Thomas [phone]--> agreement to send patient to assisted living. however, this facility must [place] in [place] since [place]. Disposition: Patient has temporary guardianship, currently awaiting placement at assisted living facility in [place] (per discussion with pillowcase sewer). Patient has a court date for 08/09/17. <Gary Damon - Last Filed: 07/28/17 19:20> Objective - Vital Signs/Intake and Output Vital Signs (last 24 hours): Temp Pulse Resp BP Pulse Ox 98.4 F 94 H 20 126/85 98 07/28/17 15:30 07/28/17 15:30 07/28/17 15:30 07/28/17 15:30 07/28/17 15:30 Intake and Output: 07/28/17 07/29/17 18:59 06:59 Intake Total 400 Balance 400 - Medications Medications: Current Medications Aspirin (Ecotrin) 81 mg PO DAILY [facility] Last Admin: 07/28/17 10:14 Dose: 81 mg Donepezil HCl (Aricept) 10 mg PO HS [facility] Last Admin: 07/27/17 21:57 Dose: 10 mg Famotidine (Pepcid) 20 mg PO DAILY [facility] Last Admin: 07/28/17 10:14 Dose: 20 mg Folic Acid (Folic Acid) 1 mg PO DAILY [facility] Last Admin: 07/28/17 10:14 Dose: 1 mg Losartan Potassium (Cozaar) 25 mg PO DAILY [facility] Last Admin: 07/28/17 10:14 Dose: 25 mg Memantine (Namenda) 10 mg PO DAILY [facility] Last Admin: 07/28/17 10:14 Dose: 10 mg Rosuvastatin Calcium (Crestor) 2.5 mg PO HS [facility] Last Admin: 07/27/17 21:57 Dose: 2.5 mg - Labs Labs: 07/23/17 06:45 07/23/17 06:45 PT 11.8 SECONDS (9.7-12.2) 06/21/17 22:04 INR 1.1 06/21/17 22:04 APTT 32 SECONDS (21-34) 06/21/17 22:04 Attending/Attestation - Attestation I have personally seen and examined this patient.: Yes I have fully participated in the care of the patient.: Yes I have reviewed all pertinent clinical information, including history, physical exam and plan: Yes Notes (Text): 07/28/17 19:17 Hospitalist Progress Note Patient was seen and examined at 3:45 PM 07/28/17 358 A HEENT, Cardio, Resp, GI, Ext, CN exams were unremarkable Assessments: 1). Dimentia: Aricept, Namenda, Folic Acid, Crestor, ASA 2). Anemia: resolved 3). Hypokalemia: resolved 4). Abnormal Chest X Ray (Granuloma?): CT Chest was unremarkable 5). Impaired Fasting Glucose: HgBA1C was 5.7 6). HTN: Cozaar 7). Prophylaxis: Pepcid, SCD, 1:1 observation for elopement risk, patient is walking 10 laps around the medical floor every hour MRI Brain without contrast showed NO acute intracranial abnormality, mild chronic microangiopathic changes, and mild age related global parenchymal Heavy Metal blood work up was negative. [facility] who applied for guardianship is making arrangements for placement. Patient has court date on 08/09/17. Gary Damon D.O.
[2017-07-28] MEDS: Rosuvastatin Calcium 2.5 mg Tab PO SCH (23:15)
--- NOTE | 2017-07-29 00:53 | CP.PCM.PN ---
<MartinezAdi Hugo - Last Filed: 07/29/17 00:53> Subjective - Date & Time of Evaluation Date of Evaluation: 07/29/17 Time of Evaluation: 00:53 - Subjective Subjective: Medicine Progress Note: Hospitalist Service Patient seen and examined at bedside. Per nursing no acute events overnight. Patient is doing well, resting and watching TV. Offers no complaints at this time. Denies headaches, dizziness, cp, palpitations, sob, abdominal pain, urinary symptoms, changes in bowel habits. Objective - Vital Signs/Intake and Output Vital Signs (last 24 hours): Temp Pulse Resp BP Pulse Ox 98.5 F 100 H 20 108/64 96 07/28/17 23:25 07/28/17 23:25 07/28/17 23:25 07/28/17 23:25 07/28/17 23:25 Intake and Output: 07/28/17 07/29/17 18:59 06:59 Intake Total 400 Balance 400 - Medications Medications: Current Medications Aspirin (Ecotrin) 81 mg PO DAILY [facility] Last Admin: 07/28/17 10:14 Dose: 81 mg Donepezil HCl (Aricept) 10 mg PO HS [facility] Last Admin: 07/28/17 23:15 Dose: 10 mg Famotidine (Pepcid) 20 mg PO DAILY [facility] Last Admin: 07/28/17 10:14 Dose: 20 mg Folic Acid (Folic Acid) 1 mg PO DAILY [facility] Last Admin: 07/28/17 10:14 Dose: 1 mg Losartan Potassium (Cozaar) 25 mg PO DAILY [facility] Last Admin: 07/28/17 10:14 Dose: 25 mg Memantine (Namenda) 10 mg PO DAILY [facility] Last Admin: 07/28/17 10:14 Dose: 10 mg Rosuvastatin Calcium (Crestor) 2.5 mg PO HS [facility] Last Admin: 07/28/17 23:15 Dose: 2.5 mg - Labs Labs: 07/23/17 06:45 07/23/17 06:45 PT 11.8 SECONDS (9.7-12.2) 06/21/17 22:04 INR 1.1 06/21/17 22:04 APTT 32 SECONDS (21-34) 06/21/17 22:04 - Additional Findings Additional findings: - Constitutional Appears: Well, No Acute Distress - Head Exam Head Exam: ATRAUMATIC, NORMAL INSPECTION - Eye Exam Eye Exam: EOMI, Normal appearance - ENT Exam ENT Exam: Mucous Membranes Moist - Respiratory Exam Respiratory Exam: Clear to Ausculation Bilateral, NORMAL BREATHING PATTERN. absent: Rales, Rhonchi, Wheezes - Cardiovascular Exam Cardiovascular Exam: REGULAR RHYTHM, +S1, +S2 - GI/Abdominal Exam GI & Abdominal Exam: Soft, Normal Bowel Sounds. absent: Firm, Guarding, Rigid, Tenderness - Extremities Exam Extremities Exam: Full ROM, Normal Inspection. absent: Calf Tenderness - Back Exam Back Exam: NORMAL INSPECTION - Neurological Exam Neurological Exam: Alert, Awake, CN II-XII Intact, Normal Gait - Psychiatric Exam Psychiatric exam: Normal Affect, Normal Mood - Skin Skin Exam: Normal Color, Warm Assessment and Plan - Assessment and Plan (Free Text) Assessment: 1.) Family History of Alzheimer's Disease Early Onset of Dementia * Family Hx: patient had Alzheimer's Disease at age 71 * Patient was told by a neurologist he has early signs of dementia * Psych consult Dr. Valente --> help appreciated * CT scan of the head is negative * X-ray shows a apical granuloma * Neurology Dr. Manzanares--> help appreciated * Completed EEG 07/07/17 * Discussed patient may complete further workup as outpatient. * Negative heavy metal screen * Discussed with Dr. Manzanares 07/07 * Repeat MRI 07/09: no acute intracranial abnormality. Mild chronic microangiopathic changes and mild age-related global parenchymal volume loss. * No new recommendations from Neurology at this time * Elopement risk, will continue 1:1 observation Please note workup is in prior admission when patient eloped on discharge. * CT scan of the chest is negative and unremarkable * UDS is negative * UA: urine only + for ketones * Brain MRI: Limited motion degraded study. No evidence of acute hemorrhage or infarct. Minor chronic white matter ischemic changes are felt be present. Moderate generalized volume loss. * RPR: nonreactive * HIV: negative * TSH: within normal and repeat within normal * Folate: normal and repeat within normal * B12: normal and repeat within normal * Recommended to patient to follow-up with neurology outpatient and to establish care in the [facility] upon discharge Medications: * Aricept 10mg PO qHS * Namenda 10mg daily * Folic acid 1mg PO daily * Crestor 2.5mg PO HS 2.) Anemia-->Resolved * Within normal * Monitor 3.) Hypokalemia-->resolved * resolved 4) Abnormal Chest xray-->resolved * CT Chest: no acute pathology noted; official report in the computer 5.) Impaired glucose tolerance * Hgba1c: 5.7 * Will need check in one year for a1c to prevent over diabetes 6.) HTN-->Chronic * Continue home Cozaar 25mg PO daily * Aspirin 81mg PO daily 7.) Prophylaxis * Pepcid 20mg PO daily * SCDs, patient is ambulating, heparin discontinued * Court Appointed temporary guardian. Mr. Dangelo Thomas [phone]--> agreement to send patient to assisted living. however, this facility must be in [place] since [place]. Disposition: Patient has temporary guardianship, currently awaiting placement at assisted living facility in [place] (per discussion with case technician). Patient has a court date for 08/09/17. <Gary Damon - Last Filed: 07/29/17 19:53> Objective - Vital Signs/Intake and Output Vital Signs (last 24 hours): Temp Pulse Resp BP Pulse Ox 98.4 F 84 20 120/80 97 07/29/17 15:00 07/29/17 15:00 07/29/17 15:00 07/29/17 15:00 07/29/17 15:00 - Medications Medications: Current Medications Aspirin (Ecotrin) 81 mg PO DAILY [facility] Last Admin: 07/29/17 09:22 Dose: 81 mg Donepezil HCl (Aricept) 10 mg PO HS [facility] Last Admin: 07/28/17 23:15 Dose: 10 mg Famotidine (Pepcid) 20 mg PO DAILY [facility] Last Admin: 07/29/17 09:22 Dose: 20 mg Folic Acid (Folic Acid) 1 mg PO DAILY [facility] Last Admin: 07/29/17 09:22 Dose: 1 mg Losartan Potassium (Cozaar) 25 mg PO DAILY [facility] Last Admin: 07/29/17 09:22 Dose: 25 mg Memantine (Namenda) 10 mg PO DAILY [facility] Last Admin: 07/29/17 09:22 Dose: 10 mg Rosuvastatin Calcium (Crestor) 2.5 mg PO HS [facility] Last Admin: 07/28/17 23:15 Dose: 2.5 mg - Labs Labs: 07/23/17 06:45 07/23/17 06:45 PT 11.8 SECONDS (9.7-12.2) 06/21/17 22:04 INR 1.1 06/21/17 22:04 APTT 32 SECONDS (21-34) 06/21/17 22:04 Attending/Attestation - Attestation I have personally seen and examined this patient.: Yes I have fully participated in the care of the patient.: Yes I have reviewed all pertinent clinical information, including history, physical exam and plan: Yes Notes (Text): 07/29/17 19:53 Hospitalist Progress Note Patient was seen and examined at 5 PM 07/29/17 358 A HEENT, Cardio, Resp, GI, Ext, CN exams were unremarkable Assessments: 1). Dimentia: Aricept, Namenda, Folic Acid, Crestor, ASA 2). Anemia: resolved 3). Hypokalemia: resolved 4). Abnormal Chest X Ray (Granuloma?): CT Chest was unremarkable 5). Impaired Fasting Glucose: HgBA1C was 5.7 6). HTN: Cozaar 7). Prophylaxis: Pepcid, SCD, 1:1 observation for elopement risk, patient is walking 10 laps around the medical floor every hour MRI Brain without contrast showed NO acute intracranial abnormality, mild chronic microangiopathic changes, and mild age related global parenchymal Heavy Metal blood work up was negative. [facility] who applied for guardianship is making arrangements for placement. Patient has court date on 08/09/17. Distillery Miller Helper Lisa and Associate Curator Rashard are aware. Gary Damon D.O.
[2017-07-29] MEDS: Rosuvastatin Calcium 2.5 mg Tab PO SCH (21:10)
[2017-07-30 07:28] LABS: BASO % 0.4 % (0.0-2.0); EOS # 0.1 K/uL (0.0-0.7); EOS % 2.1 % (0.0-4.0); HEMOGLOBIN 13.9 g/dL (12.0-18.0); LYMPH # 1.4 K/uL (1.0-4.3); LYMPH % 23.7 % (20.0-40.0); MEAN CELL VOLUME 93.7 fL (80.0-94.0); MEAN CORPUSCULAR HEMOGLOBIN 32.6 pg (27.0-31.0); MEAN CORPUSCULAR HGB CONC 34.8 g/dL (33.0-37.0); MEAN PLATELET VOLUME 7.2 fL (7.2-11.7); MONO # 0.6 K/uL (0.0-0.8); MONO % 11.1 % (0.0-10.0); NEUT # 3.6 K/uL (1.8-7.0); NEUT % 62.7 % (50.0-75.0); NRBC % 0.1 % (0.0-2.0); RBC 4.27 Mil/uL (4.40-5.90); RED CELL DISTRIBUTION WIDTH 12.7 % (11.5-14.5); WHITE BLOOD COUNT 5.7 K/uL (4.8-10.8)
[2017-07-30 08:16] LABS: ALB/GLOB RATIO 1.6 (1.0-2.1); ALBUMIN 3.6 g/dL (3.5-5.0); ALT/SGPT 27 U/L (21-72); AST/SGOT 15 U/L (17-59); BLOOD UREA NITROGEN 10 mg/dL (9-20); CALCIUM 8.3 mg/dl (8.6-10.4); GFR AFRICAN-AMERICAN > 60; GFR NON-AFRICAN AMERICAN > 60
--- NOTE | 2017-07-30 08:20 | CP.PCM.PN ---
<Tabitha Charles - Last Filed: 07/30/17 13:00> Subjective - Date & Time of Evaluation Date of Evaluation: 07/30/17 Time of Evaluation: 08:19 - Subjective Subjective: Medicine Progress Note: Hospitalist Service Patient seen and examined at bedside. Per nursing no acute events overnight. Patient is doing well, offers no complaints at this time. Denies headaches, dizziness, cp, palpitations, sob, abdominal pain, urinary symptoms, changes in bowel habits. Objective - Vital Signs/Intake and Output Vital Signs (last 24 hours): Temp Pulse Resp BP Pulse Ox 98.0 F 76 20 119/82 97 07/29/17 23:25 07/29/17 23:25 07/29/17 23:25 07/29/17 23:25 07/29/17 23:25 Intake and Output: 07/30/17 07/30/17 06:59 18:59 Intake Total 730 Balance 730 - Medications Medications: Current Medications Aspirin (Ecotrin) 81 mg PO DAILY [facility] Last Admin: 07/29/17 09:22 Dose: 81 mg Donepezil HCl (Aricept) 10 mg PO [facility] Last Admin: 07/29/17 21:10 Dose: 10 mg Famotidine (Pepcid) 20 mg PO DAILY [facility] Last Admin: 07/29/17 09:22 Dose: 20 mg Folic Acid (Folic Acid) 1 mg PO DAILY [facility] Last Admin: 07/29/17 09:22 Dose: 1 mg Losartan Potassium (Cozaar) 25 mg PO DAILY [facility] Last Admin: 07/29/17 09:22 Dose: 25 mg Memantine (Namenda) 10 mg PO DAILY [facility] Last Admin: 07/29/17 09:22 Dose: 10 mg Rosuvastatin Calcium (Crestor) 2.5 mg PO HS [facility] Last Admin: 07/29/17 21:10 Dose: 2.5 mg - Labs Labs: 07/30/17 07:22 07/30/17 07:22 PT 11.8 SECONDS (9.7-12.2) 06/21/17 22:04 INR 1.1 06/21/17 22:04 APTT 32 SECONDS (21-34) 06/21/17 22:04 - Constitutional Appears: Well, No Acute Distress - Head Exam Head Exam: ATRAUMATIC, NORMAL INSPECTION - Eye Exam Eye Exam: EOMI, Normal appearance - ENT Exam ENT Exam: Mucous Membranes Moist - Respiratory Exam Respiratory Exam: Clear to Ausculation Bilateral, NORMAL BREATHING PATTERN. absent: Rales, Rhonchi, Wheezes - Cardiovascular Exam Cardiovascular Exam: REGULAR RHYTHM, +S1, +S2 - GI/Abdominal Exam GI & Abdominal Exam: Soft, Normal Bowel Sounds. absent: Guarding, Rigid, Tenderness - Extremities Exam Extremities Exam: Normal Inspection. absent: Calf Tenderness - Back Exam Back Exam: NORMAL INSPECTION - Neurological Exam Neurological Exam: Alert, Awake, CN II-XII Intact, Normal Gait - Psychiatric Exam Psychiatric exam: Normal Affect, Normal Mood - Skin Skin Exam: Dry, Normal Color, Warm Assessment and Plan - Assessment and Plan (Free Text) Assessment: 1.) Family History of Alzheimer's Disease Early Onset of Dementia * Family Hx: patient had Alzheimer's Disease at age 71 * Patient was told by a neurologist he has early signs of dementia * Psych consult Dr. Valente --> help appreciated * CT scan of the head is negative * X-ray shows a apical granuloma * Neurology Dr. Manzanares--> help appreciated * Completed EEG 07/07/17 * Discussed patient may complete further workup as outpatient. * Negative heavy metal screen * Discussed with Dr. Manzanares 07/07 * Repeat MRI 07/09: no acute intracranial abnormality. Mild chronic microangiopathic changes and mild age-related global parenchymal volume loss. * No new recommendations from Neurology at this time * Elopement risk, will continue 1:1 observation Please note workup is in prior admission when patient eloped on discharge. * CT scan of the chest is negative and unremarkable * UDS is negative * UA: urine only + for ketones * Brain MRI: Limited motion degraded study. No evidence of acute hemorrhage or infarct. Minor chronic white matter ischemic changes are felt be present. Moderate generalized volume loss. * RPR: nonreactive * HIV: negative * TSH: within normal and repeat within normal * Folate: normal and repeat within normal * B12: normal and repeat within normal * Recommended to patient to follow-up with neurology outpatient and to establish care in the [facility] upon discharge Medications: * Aricept 10mg PO qHS * Namenda 10mg daily * Folic acid 1mg PO daily * Crestor 2.5mg PO HS 2.) Anemia-->Resolved * Within normal * Monitor 3.) Hypokalemia-->resolved * resolved 4) Abnormal Chest xray-->resolved * CT Chest: no acute pathology noted; official report in the computer 5.) Impaired glucose tolerance * Hgba1c: 5.7 * Will need check in one year for a1c to prevent over diabetes 6.) HTN-->Chronic * Continue home Cozaar 25mg PO daily * Aspirin 81mg PO daily 7.) Prophylaxis * Pepcid 20mg PO daily * SCDs, patient is ambulating, heparin discontinued * Court Appointed temporary guardian. Mr. Dangelo Thomas [phone]--> agreement to send patient to assisted living. however, this facility must [place] in [place] since [place]. Disposition: Patient has temporary guardianship, currently awaiting placement at assisted living facility in [place] (per discussion with insurance case manager). Patient has a court date for 08/09/17. <Bridget Caputo - Last Filed: 07/30/17 19:05> Objective - Vital Signs/Intake and Output Vital Signs (last 24 hours): Temp Pulse Resp BP Pulse Ox 97.7 F 71 20 102/62 96 07/30/17 16:26 07/30/17 16:26 07/30/17 16:26 07/30/17 16:26 07/30/17 16:26 Intake and Output: 07/30/17 07/31/17 18:59 06:59 Intake Total 400 Balance 400 - Medications Medications: Current Medications Aspirin (Ecotrin) 81 mg PO DAILY [facility] Last Admin: 07/30/17 09:31 Dose: 81 mg Donepezil HCl (Aricept) 10 mg PO HS [facility] Last Admin: 07/29/17 21:10 Dose: 10 mg Famotidine (Pepcid) 20 mg PO DAILY [facility] Last Admin: 07/30/17 09:31 Dose: 20 mg Folic Acid (Folic Acid) 1 mg PO DAILY [facility] Last Admin: 07/30/17 09:31 Dose: 1 mg Losartan Potassium (Cozaar) 25 mg PO DAILY [facility] Last Admin: 07/30/17 09:31 Dose: 25 mg Memantine (Namenda) 10 mg PO DAILY [facility] Last Admin: 07/30/17 09:31 Dose: 10 mg Rosuvastatin Calcium (Crestor) 2.5 mg PO [facility] Last Admin: 07/29/17 21:10 Dose: 2.5 mg - Labs Labs: 07/30/17 07:22 07/30/17 07:22 PT 11.8 SECONDS (9.7-12.2) 06/21/17 22:04 INR 1.1 06/21/17 22:04 APTT 32 SECONDS (21-34) 06/21/17 22:04 Attending/Attestation - Attestation I have personally seen and examined this patient.: Yes I have fully participated in the care of the patient.: Yes I have reviewed all pertinent clinical information, including history, physical exam and plan: Yes Notes (Text): Seen and examined discussed with the resident 07/30/17 19:05
[2017-07-30] MEDS: Rosuvastatin Calcium 2.5 mg Tab PO SCH (22:32)
--- NOTE | 2017-07-31 09:07 | CP.PCM.PN ---
<Tabitha Charles - Last Filed: 07/31/17 12:50> Subjective - Date & Time of Evaluation Date of Evaluation: 07/31/17 Time of Evaluation: 09:02 - Subjective Subjective: Medicine Progress Note: Hospitalist Service Patient seen and examined at bedside. Per nursing no acute events overnight. Patient is doing well, offers no complaints at this time. Denies headaches, dizziness, cp, palpitations, sob, urinary symptoms, changes in bowel habits. Objective - Vital Signs/Intake and Output Vital Signs (last 24 hours): Temp Pulse Resp BP Pulse Ox 98.3 F 77 20 130/90 98 07/31/17 08:00 07/31/17 08:00 07/31/17 08:00 07/31/17 08:00 07/31/17 08:00 Intake and Output: 07/31/17 07/31/17 06:59 18:59 Intake Total 600 Balance 600 - Medications Medications: Current Medications Aspirin (Ecotrin) 81 mg PO DAILY [facility] Last Admin: 07/30/17 09:31 Dose: 81 mg Donepezil HCl (Aricept) 10 mg PO [facility] Last Admin: 07/30/17 22:32 Dose: 10 mg Famotidine (Pepcid) 20 mg PO DAILY [facility] Last Admin: 07/30/17 09:31 Dose: 20 mg Folic Acid (Folic Acid) 1 mg PO DAILY [facility] Last Admin: 07/30/17 09:31 Dose: 1 mg Losartan Potassium (Cozaar) 25 mg PO DAILY [facility] Last Admin: 07/30/17 09:31 Dose: 25 mg Memantine (Namenda) 10 mg PO DAILY [facility] Last Admin: 07/30/17 09:31 Dose: 10 mg Rosuvastatin Calcium (Crestor) 2.5 mg PO [facility] Last Admin: 07/30/17 22:32 Dose: 2.5 mg - Labs Labs: 07/30/17 07:22 07/30/17 07:22 PT 11.8 SECONDS (9.7-12.2) 06/21/17 22:04 INR 1.1 06/21/17 22:04 APTT 32 SECONDS (21-34) 06/21/17 22:04 - Constitutional Appears: Well - Head Exam Head Exam: ATRAUMATIC, NORMAL INSPECTION - Eye Exam Eye Exam: EOMI, Normal appearance - ENT Exam ENT Exam: Mucous Membranes Moist - Neck Exam Neck Exam: Full ROM - Respiratory Exam Respiratory Exam: Clear to Ausculation Bilateral, NORMAL BREATHING PATTERN. absent: Rales, Wheezes - Cardiovascular Exam Cardiovascular Exam: REGULAR RHYTHM, +S1, +S2. absent: Tachycardia, Murmur - GI/Abdominal Exam GI & Abdominal Exam: Soft, Normal Bowel Sounds. absent: Firm, Guarding, Rigid, Tenderness - Rectal Exam Rectal Exam: Deferred - Extremities Exam Extremities Exam: Normal Inspection. absent: Calf Tenderness, Pedal Edema - Back Exam Back Exam: NORMAL INSPECTION - Neurological Exam Neurological Exam: Alert, Awake, Normal Gait - Psychiatric Exam Psychiatric exam: Normal Affect, Normal Mood - Skin Skin Exam: Dry, Normal Color, Warm Assessment and Plan - Assessment and Plan (Free Text) Assessment: 1.) Family History of Alzheimer's Disease Early Onset of Dementia * Family Hx: patient had Alzheimer's Disease at age 71 * Patient was told by a neurologist he has early signs of dementia * Psych consult Dr. Valente --> help appreciated * CT scan of the head is negative * X-ray shows a apical granuloma * Neurology Dr. Manzanares--> help appreciated * Completed EEG 07/07/17 * Discussed patient may complete further workup as outpatient. * Negative heavy metal screen * Discussed with Dr. Manzanares 07/07 * Repeat MRI 07/09: no acute intracranial abnormality. Mild chronic microangiopathic changes and mild age-related global parenchymal volume loss. * No new recommendations from Neurology at this time * Elopement risk, will continue 1:1 observation Please note workup is in prior admission when patient eloped on discharge. * CT scan of the chest is negative and unremarkable * UDS is negative * UA: urine only + for ketones * Brain MRI: Limited motion degraded study. No evidence of acute hemorrhage or infarct. Minor chronic white matter ischemic changes are felt be present. Moderate generalized volume loss. * RPR: nonreactive * HIV: negative * TSH: within normal and repeat within normal * Folate: normal and repeat within normal * B12: normal and repeat within normal * Recommended to patient to follow-up with neurology outpatient and to establish care in the [facility] upon discharge Medications: * Aricept 10mg PO qHS * Namenda 10mg daily * Folic acid 1mg PO daily * Crestor 2.5mg PO HS 2.) Anemia-->Resolved * Within normal * Monitor 3.) Hypokalemia-->resolved * resolved 4) Abnormal Chest xray-->resolved * CT Chest: no acute pathology noted; official report in the computer 5.) Impaired glucose tolerance * Hgba1c: 5.7 * Will need check in one year for a1c to prevent over diabetes 6.) HTN-->Chronic * Continue home Cozaar 25mg PO daily * Aspirin 81mg PO daily 7.) Prophylaxis * Pepcid 20mg PO daily * SCDs, patient is ambulating, heparin discontinued * Court Appointed temporary guardian. Mr. Dangelo Thomas [phone]--> agreement to send patient to assisted living. however, this facility must [place] in [place] since [place]. Disposition: Patient has temporary guardianship, currently awaiting placement at assisted living facility in [place] (per discussion with cyanide case hardener). Patient has a court date for 08/09/17. <Tamera Sawyer V - Last Filed: 07/31/17 17:27> Objective - Vital Signs/Intake and Output Vital Signs (last 24 hours): Temp Pulse Resp BP Pulse Ox 98.3 F 77 20 130/90 98 07/31/17 08:00 07/31/17 08:00 07/31/17 08:00 07/31/17 08:00 07/31/17 08:00 Intake and Output: 07/31/17 07/31/17 06:59 18:59 Intake Total 600 350 Balance 600 350 - Medications Medications: Current Medications Aspirin (Ecotrin) 81 mg PO DAILY [facility] Last Admin: 07/31/17 09:19 Dose: 81 mg Donepezil HCl (Aricept) 10 mg PO HS [facility] Last Admin: 07/30/17 22:32 Dose: 10 mg Famotidine (Pepcid) 20 mg PO DAILY [facility] Last Admin: 07/31/17 09:19 Dose: 20 mg Folic Acid (Folic Acid) 1 mg PO DAILY [facility] Last Admin: 07/31/17 09:19 Dose: 1 mg Losartan Potassium (Cozaar) 25 mg PO DAILY [facility] Last Admin: 07/31/17 09:19 Dose: 25 mg Memantine (Namenda) 10 mg PO DAILY [facility] Last Admin: 07/31/17 09:19 Dose: 10 mg Rosuvastatin Calcium (Crestor) 2.5 mg PO [facility] Last Admin: 07/30/17 22:32 Dose: 2.5 mg - Labs Labs: 07/30/17 07:22 07/30/17 07:22 PT 11.8 SECONDS (9.7-12.2) 06/21/17 22:04 INR 1.1 06/21/17 22:04 APTT 32 SECONDS (21-34) 06/21/17 22:04 Attending/Attestation - Attestation I have personally seen and examined this patient.: Yes I have fully participated in the care of the patient.: Yes I have reviewed all pertinent clinical information, including history, physical exam and plan: Yes Notes (Text): Patient seen, examined and case discussed with day-time resident. Patient seen this morning. Patient eating breakfast. Patient does have a temporary guardian in [place] but social work to coordinate with patient's temporary guardian for will need to find locations for assisting living. Patient does have a pending court date 08/09/17. Assessment/Plan: 1.) Family History of Alzheimer's Disease Early Onset of Dementia * Family Hx: patient had Alzheimer's Disease at age 71 * Patient was told by a neurologist he has early signs of dementia * Psych consult Dr. Valente --> help appreciated * CT scan of the head is negative * X-ray shows a apical granuloma * Neurology Dr. Manzanares-->help appreciated * Completed EEG 07/07/17 * Discussed patient may complete further workup as outpatient. * negative heavy metal screen * Discussed with Dr. manzanares 07/07 * Repeat MRI 07/09: no acute intracranial abnormality. Mild chronic microangiopathic changes and mild age-related global parenchymal volume loss. Please note workup is in prior admission when patient eloped on discharge. * CT scan of the chest is negative and unremarkable * UDS is negative * UA: urine only + for ketones * Brain MRI: Limited motion degraded study. No evidence of acute hemorrhage or infarct. Minor chronic white matter ischemic changes are felt be present. Moderate generalized volume loss. * RPR: nonreactive * HIV: negative * TSH: within normal and repeat within normal * Folate: normal and repeat within normal * B12: normal and repeat within normal * Recommended to patient to follow-up with neurology outpatient and to establish care in the [facility] upon discharge Medications: * Aricept 10mg PO qHS * Namenda 10mg bid * Folic acid 1mg PO daily * Crestor 2.5mg PO HS 2.) Anemia-->Resolved * Within normal * Monitor 3.) Hypokalemia-->resolved * resolved 4) Abnormal Chest xray-->resolved * CT Chest: no acute pathology noted; official report in the computer 5.) Impaired glucose tolerance * Hgba1c: 5.7 * Will need check in one year for a1c to prevent over diabetes 6.) HTN-->Chronic * continue home Cozaar 25mg PO daily * Aspirin 81mg PO daily * 2 gram diet 7.) Prophylaxis * Pepcid 20mg PO BID * Patient is ambulatory. * SCDs * Court Appointed temporary guardian. Mr. Dangelo Thomas [phone]--> agreement to send patient to assisted living. however, this facility must [place] in [place] since [place]. Disposition: pending approval to assisted living facility and has of temporary guardianship. patient has pending court date 08/09/17.
--- NOTE | 2017-07-31 10:13 | CP.PCM.PN ---
Subjective - Date & Time of Evaluation Date of Evaluation: 07/31/17 Time of Evaluation: 10:10 - Subjective Subjective: Mr. Nelson was seen and examined at the bedside. He is alert, oriented to place and person, but knows where to look for time. He denies any dizziness, lightheadedness, blurred vision, nausea,or vomiting. He states of enjoying his time alone in his room. He remains on 1:1 sitter for patient safety.Patient has temporary guardianship, currently awaiting placement at assisted living [facility] in [place] (per discussion with pillowcase maker). Objective - Vital Signs/Intake and Output Vital Signs (last 24 hours): Temp Pulse Resp BP Pulse Ox 98.3 F 77 20 130/90 98 07/31/17 08:00 07/31/17 08:00 07/31/17 08:00 07/31/17 08:00 07/31/17 08:00 Intake and Output: 07/31/17 07/31/17 06:59 18:59 Intake Total 600 Balance 600 - Medications Medications: Current Medications Aspirin (Ecotrin) 81 mg PO DAILY [facility] Last Admin: 07/31/17 09:19 Dose: 81 mg Donepezil HCl (Aricept) 10 mg PO HS [facility] Last Admin: 07/30/17 22:32 Dose: 10 mg Famotidine (Pepcid) 20 mg PO DAILY [facility] Last Admin: 07/31/17 09:19 Dose: 20 mg Folic Acid (Folic Acid) 1 mg PO DAILY [facility] Last Admin: 07/31/17 09:19 Dose: 1 mg Losartan Potassium (Cozaar) 25 mg PO DAILY [facility] Last Admin: 07/31/17 09:19 Dose: 25 mg Memantine (Namenda) 10 mg PO DAILY [facility] Last Admin: 07/31/17 09:19 Dose: 10 mg Rosuvastatin Calcium (Crestor) 2.5 mg PO HS [facility] Last Admin: 07/30/17 22:32 Dose: 2.5 mg - Labs Labs: 07/30/17 07:22 07/30/17 07:22 PT 11.8 SECONDS (9.7-12.2) 06/21/17 22:04 INR 1.1 06/21/17 22:04 APTT 32 SECONDS (21-34) 06/21/17 22:04 - Constitutional Appears: No Acute Distress - Head Exam Head Exam: NORMAL INSPECTION - Neurological Exam Neurological Exam: Alert, Awake Neuro motor strength exam: Left Upper Extremity: 5, Right Upper Extremity: 5, Left Lower Extremity: 5, Right Lower Extremity: 5 Additional comments: Neurological unchanged from previous examination. Assessment and Plan (1) Dementia Assessment & Plan: Case discussed with Dr. Manzanares, continue all current medical regimen. There is no new recommendations from neurology. Status: Chronic
[2017-07-31] MEDS: Rosuvastatin Calcium 2.5 mg Tab PO SCH (21:37)
--- NOTE | 2017-08-01 07:00 | CP.PCM.PN ---
<Tabitha Charles - Last Filed: 08/01/17 13:22> Subjective - Date & Time of Evaluation Date of Evaluation: 08/01/17 Time of Evaluation: 06:59 - Subjective Subjective: Medicine Progress Note: Hospitalist Service Patient seen and examined at bedside. Per nursing, no acute events overnight. Patient is doing well, offers no complaints at this time. Denies headaches, dizziness, cp, palpitations, sob, abdominal pain, urinary symptoms, changes in bowel habits. Objective - Vital Signs/Intake and Output Vital Signs (last 24 hours): Temp Pulse Resp BP Pulse Ox 98.5 F 82 20 120/76 98 07/31/17 23:00 07/31/17 23:00 07/31/17 23:00 07/31/17 23:00 07/31/17 23:00 Intake and Output: 07/31/17 08/01/17 18:59 06:59 Intake Total 350 640 Balance 350 640 - Medications Medications: Current Medications Aspirin (Ecotrin) 81 mg PO DAILY [facility] Last Admin: 07/31/17 09:19 Dose: 81 mg Donepezil HCl (Aricept) 10 mg PO [facility] Last Admin: 07/31/17 21:37 Dose: 10 mg Famotidine (Pepcid) 20 mg PO DAILY [facility] Last Admin: 07/31/17 09:19 Dose: 20 mg Folic Acid (Folic Acid) 1 mg PO DAILY [facility] Last Admin: 07/31/17 09:19 Dose: 1 mg Losartan Potassium (Cozaar) 25 mg PO DAILY [facility] Last Admin: 07/31/17 09:19 Dose: 25 mg Memantine (Namenda) 10 mg PO DAILY [facility] Last Admin: 07/31/17 09:19 Dose: 10 mg Rosuvastatin Calcium (Crestor) 2.5 mg PO [facility] Last Admin: 07/31/17 21:37 Dose: 2.5 mg - Labs Labs: 07/30/17 07:22 07/30/17 07:22 PT 11.8 SECONDS (9.7-12.2) 06/21/17 22:04 INR 1.1 06/21/17 22:04 APTT 32 SECONDS (21-34) 06/21/17 22:04 - Constitutional Appears: Well, No Acute Distress - Head Exam Head Exam: ATRAUMATIC, NORMAL INSPECTION, NORMOCEPHALIC - Eye Exam Eye Exam: EOMI, Normal appearance - ENT Exam ENT Exam: Mucous Membranes Moist - Neck Exam Neck Exam: Full ROM - Respiratory Exam Respiratory Exam: Clear to Ausculation Bilateral, NORMAL BREATHING PATTERN. absent: Rales, Rhonchi, Wheezes - Cardiovascular Exam Cardiovascular Exam: REGULAR RHYTHM, +S1, +S2 - GI/Abdominal Exam GI & Abdominal Exam: Soft, Normal Bowel Sounds. absent: Guarding, Rigid, Tenderness - Rectal Exam Rectal Exam: Deferred - Extremities Exam Extremities Exam: Normal Inspection - Back Exam Back Exam: NORMAL INSPECTION - Neurological Exam Neurological Exam: Alert, Awake, CN II-XII Intact, Normal Gait - Psychiatric Exam Psychiatric exam: Normal Affect, Normal Mood - Skin Skin Exam: Dry, Normal Color, Warm Assessment and Plan - Assessment and Plan (Free Text) Assessment: 1.) Family History of Alzheimer's Disease Early Onset of Dementia * Family Hx: patient had Alzheimer's Disease at age 71 * Patient was told by a neurologist he has early signs of dementia * Psych consult Dr. Valente --> help appreciated * CT scan of the head is negative * X-ray shows a apical granuloma * Neurology Dr. Manzanares--> help appreciated * Completed EEG 07/07/17 * Discussed patient may complete further workup as outpatient. * Negative heavy metal screen * Discussed with Dr. Manzanares 07/07 * Repeat MRI 07/09: no acute intracranial abnormality. Mild chronic microangiopathic changes and mild age-related global parenchymal volume loss. * No new recommendations from Neurology at this time * Elopement risk, will continue 1:1 observation Please note workup is in prior admission when patient eloped on discharge. * CT scan of the chest is negative and unremarkable * UDS is negative * UA: urine only + for ketones * Brain MRI: Limited motion degraded study. No evidence of acute hemorrhage or infarct. Minor chronic white matter ischemic changes are felt be present. Moderate generalized volume loss. * RPR: nonreactive * HIV: negative * TSH: within normal and repeat within normal * Folate: normal and repeat within normal * B12: normal and repeat within normal * Recommended to patient to follow-up with neurology outpatient and to establish care in the [facility] upon discharge Medications: * Aricept 10mg PO qHS * Namenda 10mg daily * Folic acid 1mg PO daily * Crestor 2.5mg PO HS 2.) Anemia-->Resolved * Within normal * Monitor 3.) Hypokalemia-->resolved * resolved 4) Abnormal Chest xray-->resolved * CT Chest: no acute pathology noted; official report in the computer 5.) Impaired glucose tolerance * Hgba1c: 5.7 * Will need check in one year for a1c to prevent over diabetes 6.) HTN-->Chronic * Continue home Cozaar 25mg PO daily * Aspirin 81mg PO daily 7.) Prophylaxis * Pepcid 20mg PO daily * SCDs, patient is ambulating, heparin discontinued * Court Appointed temporary guardian. Mr. Dangelo Thomas [phone]--> agreement to send patient to assisted living Disposition: Patient has temporary guardianship, currently awaiting placement at assisted living facility in [place] (per discussion with medical case manager). Patient has a court date for 08/09/17. <Tamera Sawyer V - Last Filed: 08/01/17 15:40> Objective - Vital Signs/Intake and Output Vital Signs (last 24 hours): Temp Pulse Resp BP Pulse Ox 98 F 65 20 113/71 98 08/01/17 07:39 08/01/17 07:39 08/01/17 07:39 08/01/17 07:39 08/01/17 07:39 Intake and Output: 08/01/17 08/01/17 06:59 18:59 Intake Total 640 360 Balance 640 360 - Medications Medications: Current Medications Aspirin (Ecotrin) 81 mg PO DAILY [facility] Last Admin: 08/01/17 09:00 Dose: 81 mg Donepezil HCl (Aricept) 10 mg PO [facility] Last Admin: 07/31/17 21:37 Dose: 10 mg Famotidine (Pepcid) 20 mg PO DAILY [facility] Last Admin: 08/01/17 09:01 Dose: 20 mg Folic Acid (Folic Acid) 1 mg PO DAILY [facility] Last Admin: 08/01/17 09:00 Dose: 1 mg Losartan Potassium (Cozaar) 25 mg PO DAILY [facility] Last Admin: 08/01/17 09:01 Dose: 25 mg Memantine (Namenda) 10 mg PO DAILY [facility] Last Admin: 08/01/17 09:01 Dose: 10 mg Rosuvastatin Calcium (Crestor) 2.5 mg PO [facility] Last Admin: 07/31/17 21:37 Dose: 2.5 mg - Labs Labs: 07/30/17 07:22 07/30/17 07:22 PT 11.8 SECONDS (9.7-12.2) 06/21/17 22:04 INR 1.1 06/21/17 22:04 APTT 32 SECONDS (21-34) 06/21/17 22:04 Attending/Attestation - Attestation I have personally seen and examined this patient.: Yes I have fully participated in the care of the patient.: Yes I have reviewed all pertinent clinical information, including history, physical exam and plan: Yes Notes (Text): Patient seen, examined, case discussed with medical claims assistant. Patient denies acute complaints. Patient unable to recognize it is a new year. Patient still recognizes that [place]it[employer] is the president. Patient did shave his face and does have follow-up clemente tobar over his lips on the top and lower lip. Continue present management. Awaiting court date. Assessment/Plan: 1.) Family History of Alzheimer's Disease Early Onset of Dementia * Family Hx: patient had Alzheimer's Disease at age 71 * Patient was told by a neurologist he has early signs of dementia * Psych consult Dr. Valente --> help appreciated * CT scan of the head is negative * X-ray shows a apical granuloma * Neurology Dr. Manzanares-->help appreciated * Completed EEG 07/07/17 * Discussed patient may complete further workup as outpatient. * negative heavy metal screen * Discussed with Dr. manzanares 07/07 * Repeat MRI 07/09: no acute intracranial abnormality. Mild chronic microangiopathic changes and mild age-related global parenchymal volume loss. Please note workup is in prior admission when patient eloped on discharge. * CT scan of the chest is negative and unremarkable * UDS is negative * UA: urine only + for ketones * Brain MRI: Limited motion degraded study. No evidence of acute hemorrhage or infarct. Minor chronic white matter ischemic changes are felt be present. Moderate generalized volume loss. * RPR: nonreactive * HIV: negative * TSH: within normal and repeat within normal * Folate: normal and repeat within normal * B12: normal and repeat within normal * Recommended to patient to follow-up with neurology outpatient and to establish care in the [facility] upon discharge Medications: * Aricept 10mg PO qHS * Namenda 10mg bid * Folic acid 1mg PO daily * Crestor 2.5mg PO HS 2.) Anemia-->Resolved * Within normal * Monitor 3.) Hypokalemia-->resolved * resolved 4) Abnormal Chest xray-->resolved * CT Chest: no acute pathology noted; official report in the computer 5.) Impaired glucose tolerance * Hgba1c: 5.7 * Will need check in one year for a1c to prevent over diabetes 6.) HTN-->Chronic * continue home Cozaar 25mg PO daily * Aspirin 81mg PO daily * 2 gram diet 7.) Prophylaxis * Pepcid 20mg PO BID * Patient is ambulatory. * SCDs * Court Appointed temporary guardian. Mr. Dangelo Thomas [phone]--> agreement to send patient to assisted living. however, this facility must [place] in [place] since [place]. Disposition: pending approval to assisted living facility and has of temporary guardianship. patient has pending court date 08/09/17.
--- NOTE | 2017-08-01 10:27 | CP.PCM.PN ---
Subjective - Date & Time of Evaluation Date of Evaluation: 08/01/17 Time of Evaluation: 10:24 - Subjective Subjective: Mr. Nelson was seen and examined at the bedside. He is alert, oriented, denies any headache, dizziness, lightheadedness, weakness, nausea, or vomiting. 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 He is able to do his ADL. He remains on 1:1 sitter for patient safety.There was no untoward events overnight. Objective - Vital Signs/Intake and Output Vital Signs (last 24 hours): Temp Pulse Resp BP Pulse Ox 98 F 65 20 113/71 98 08/01/17 07:39 08/01/17 07:39 08/01/17 07:39 08/01/17 07:39 08/01/17 07:39 Intake and Output: 08/01/17 08/01/17 06:59 18:59 Intake Total 640 Balance 640 - Medications Medications: Current Medications Aspirin (Ecotrin) 81 mg PO DAILY [facility] Last Admin: 08/01/17 09:00 Dose: 81 mg Donepezil HCl (Aricept) 10 mg PO [facility] Last Admin: 07/31/17 21:37 Dose: 10 mg Famotidine (Pepcid) 20 mg PO DAILY [facility] Last Admin: 08/01/17 09:01 Dose: 20 mg Folic Acid (Folic Acid) 1 mg PO DAILY [facility] Last Admin: 08/01/17 09:00 Dose: 1 mg Losartan Potassium (Cozaar) 25 mg PO DAILY [facility] Last Admin: 08/01/17 09:01 Dose: 25 mg Memantine (Namenda) 10 mg PO DAILY [facility] Last Admin: 08/01/17 09:01 Dose: 10 mg Rosuvastatin Calcium (Crestor) 2.5 mg PO [facility] Last Admin: 07/31/17 21:37 Dose: 2.5 mg - Labs Labs: 07/30/17 07:22 07/30/17 07:22 PT 11.8 SECONDS (9.7-12.2) 06/21/17 22:04 INR 1.1 06/21/17 22:04 APTT 32 SECONDS (21-34) 06/21/17 22:04 - Constitutional Appears: No Acute Distress - Head Exam Head Exam: NORMAL INSPECTION - Neurological Exam Neurological Exam: Alert, Awake Neuro motor strength exam: Left Upper Extremity: 5, Right Upper Extremity: 5, Left Lower Extremity: 5, Right Lower Extremity: 5 Additional comments: Neurological unchanged from previous examination. Assessment and Plan (1) Dementia Assessment & Plan: Case discussed with Dr. Manzanares, continue all current medical regimen. Status: Chronic
[2017-08-01] MEDS: Rosuvastatin Calcium 2.5 mg Tab PO SCH (21:23)
--- NOTE | 2017-08-02 09:42 | CP.PCM.PN ---
<Tabitha Charles - Last Filed: 08/02/17 12:29> Subjective - Date & Time of Evaluation Date of Evaluation: 08/02/17 Time of Evaluation: 09:41 - Subjective Subjective: Medicine Progress Note: Hospitalist Service Patient seen and examined at bedside. Per nursing no acute events overnight. Patient is doing well, offers no complaints at this time. States that he will make his laps around the hallway soon. Denies headaches, dizziness, cp, palpitations, sob, abdominal pain, urinary symptoms. Objective - Vital Signs/Intake and Output Vital Signs (last 24 hours): Temp Pulse Resp BP Pulse Ox 98.0 F 70 20 97/55 L 97 08/02/17 07:00 08/02/17 07:00 08/02/17 07:00 08/02/17 07:00 08/02/17 07:00 Intake and Output: 08/02/17 08/02/17 06:59 18:59 Intake Total 860 Balance 860 - Medications Medications: Current Medications Aspirin (Ecotrin) 81 mg PO DAILY [facility] Last Admin: 08/01/17 09:00 Dose: 81 mg Donepezil HCl (Aricept) 10 mg PO HS [facility] Last Admin: 08/01/17 21:23 Dose: 10 mg Famotidine (Pepcid) 20 mg PO DAILY [facility] Last Admin: 08/01/17 09:01 Dose: 20 mg Folic Acid (Folic Acid) 1 mg PO DAILY [facility] Last Admin: 08/01/17 09:00 Dose: 1 mg Losartan Potassium (Cozaar) 25 mg PO DAILY [facility] Last Admin: 08/01/17 09:01 Dose: 25 mg Memantine (Namenda) 10 mg PO DAILY [facility] Last Admin: 08/01/17 09:01 Dose: 10 mg Rosuvastatin Calcium (Crestor) 2.5 mg PO HS [facility] Last Admin: 08/01/17 21:23 Dose: 2.5 mg - Labs Labs: 07/30/17 07:22 07/30/17 07:22 PT 11.8 SECONDS (9.7-12.2) 06/21/17 22:04 INR 1.1 06/21/17 22:04 APTT 32 SECONDS (21-34) 06/21/17 22:04 - Constitutional Appears: Well, No Acute Distress - Head Exam Head Exam: ATRAUMATIC, NORMAL INSPECTION, NORMOCEPHALIC - Eye Exam Eye Exam: EOMI, Normal appearance - ENT Exam ENT Exam: Mucous Membranes Moist - Neck Exam Neck Exam: Full ROM - Respiratory Exam Respiratory Exam: Clear to Ausculation Bilateral, NORMAL BREATHING PATTERN. absent: Rales, Rhonchi, Wheezes - Cardiovascular Exam Cardiovascular Exam: REGULAR RHYTHM, +S1, +S2 - GI/Abdominal Exam GI & Abdominal Exam: Soft, Normal Bowel Sounds. absent: Firm, Guarding, Rigid, Tenderness - Rectal Exam Rectal Exam: Deferred - Extremities Exam Extremities Exam: Normal Inspection - Neurological Exam Neurological Exam: Alert, Awake, CN II-XII Intact, Normal Gait - Psychiatric Exam Psychiatric exam: Normal Affect, Normal Mood - Skin Skin Exam: Dry, Normal Color, Warm Assessment and Plan - Assessment and Plan (Free Text) Assessment: 1.) Family History of Alzheimer's Disease Early Onset of Dementia * Family Hx: patient had Alzheimer's Disease at age 71 * Patient was told by a neurologist he has early signs of dementia * Psych consult Dr. Valente --> help appreciated * CT scan of the head is negative * X-ray shows a apical granuloma * Neurology Dr. Manzanares--> help appreciated * Completed EEG 07/07/17 * Discussed patient may complete further workup as outpatient. * Negative heavy metal screen * Discussed with Dr. Manzanares 07/07 * Repeat MRI 07/09: no acute intracranial abnormality. Mild chronic microangiopathic changes and mild age-related global parenchymal volume loss. * No new recommendations from Neurology at this time * Elopement risk, will continue 1:1 observation Please note workup is in prior admission when patient eloped on discharge. * CT scan of the chest is negative and unremarkable * UDS is negative * UA: urine only + for ketones * Brain MRI: Limited motion degraded study. No evidence of acute hemorrhage or infarct. Minor chronic white matter ischemic changes are felt be present. Moderate generalized volume loss. * RPR: nonreactive * HIV: negative * TSH: within normal and repeat within normal * Folate: normal and repeat within normal * B12: normal and repeat within normal * Recommended to patient to follow-up with neurology outpatient and to establish care in the [facility] upon discharge Medications: * Aricept 10mg PO qHS * Namenda 10mg daily * Folic acid 1mg PO daily * Crestor 2.5mg PO HS 2.) Anemia-->Resolved * Within normal * Monitor 3.) Hypokalemia-->resolved * resolved 4) Abnormal Chest xray-->resolved * CT Chest: no acute pathology noted; official report in the computer 5.) Impaired glucose tolerance * Hgba1c: 5.7 * Will need check in one year for a1c to prevent over diabetes 6.) HTN-->Chronic * Continue home Cozaar 25mg PO daily * Aspirin 81mg PO daily 7.) Prophylaxis * Pepcid 20mg PO daily * SCDs, patient is ambulating, heparin discontinued * Court Appointed temporary guardian. Mr. Dangelo Thomas [phone]--> agreement to send patient to assisted living Disposition: Patient has temporary guardianship, currently awaiting placement at assisted living facility in [place] (per discussion with disability case manager). Patient has a court date for 08/09/17. <Tamera Sawyer V - Last Filed: 08/02/17 12:56> Objective - Vital Signs/Intake and Output Vital Signs (last 24 hours): Temp Pulse Resp BP Pulse Ox 98.0 F 70 20 97/55 L 97 08/02/17 07:00 08/02/17 07:00 08/02/17 07:00 08/02/17 07:00 08/02/17 07:00 Intake and Output: 08/02/17 08/02/17 06:59 18:59 Intake Total 860 Balance 860 - Medications Medications: Current Medications Aspirin (Ecotrin) 81 mg PO DAILY [facility] Last Admin: 08/02/17 10:48 Dose: 81 mg Donepezil HCl (Aricept) 10 mg PO HS [facility] Last Admin: 08/01/17 21:23 Dose: 10 mg Famotidine (Pepcid) 20 mg PO DAILY [facility] Last Admin: 08/02/17 10:48 Dose: 20 mg Folic Acid (Folic Acid) 1 mg PO DAILY [facility] Last Admin: 08/02/17 10:48 Dose: 1 mg Losartan Potassium (Cozaar) 25 mg PO DAILY [facility] Last Admin: 08/02/17 10:48 Dose: 25 mg Memantine (Namenda) 10 mg PO DAILY [facility] Last Admin: 08/02/17 10:48 Dose: 10 mg Rosuvastatin Calcium (Crestor) 2.5 mg PO [facility] Last Admin: 08/01/17 21:23 Dose: 2.5 mg - Labs Labs: 07/30/17 07:22 07/30/17 07:22 PT 11.8 SECONDS (9.7-12.2) 06/21/17 22:04 INR 1.1 06/21/17 22:04 APTT 32 SECONDS (21-34) 06/21/17 22:04 Attending/Attestation - Attestation I have personally seen and examined this patient.: Yes I have fully participated in the care of the patient.: Yes I have reviewed all pertinent clinical information, including history, physical exam and plan: Yes Notes (Text): Patient seen, examined, case discussed with medical coordinator pesticide use. Patient denies acute complaints. Patient unable to recognize it is a new year. Patient still recognizes that Sol[employer] is the president. Continue present management. Awaiting court date. Assessment/Plan: 1.) Family History of Alzheimer's Disease Early Onset of Dementia * Family Hx: patient had Alzheimer's Disease at age 71 * Patient was told by a neurologist he has early signs of dementia * Psych consult Dr. Valente --> help appreciated * CT scan of the head is negative * X-ray shows a apical granuloma * Neurology Dr. Manzanares-->help appreciated * Completed EEG 07/07/17 * Discussed patient may complete further workup as outpatient. * negative heavy metal screen * Discussed with Dr. manzanares 07/07 * Repeat MRI 07/09: no acute intracranial abnormality. Mild chronic microangiopathic changes and mild age-related global parenchymal volume loss. Please note workup is in prior admission when patient eloped on discharge. * CT scan of the chest is negative and unremarkable * UDS is negative * UA: urine only + for ketones * Brain MRI: Limited motion degraded study. No evidence of acute hemorrhage or infarct. Minor chronic white matter ischemic changes are felt be present. Moderate generalized volume loss. * RPR: nonreactive * HIV: negative * TSH: within normal and repeat within normal * Folate: normal and repeat within normal * B12: normal and repeat within normal * Recommended to patient to follow-up with neurology outpatient and to establish care in the [facility] upon discharge Medications: * Aricept 10mg PO qHS * Namenda 10mg bid * Folic acid 1mg PO daily * Crestor 2.5mg PO HS 2.) Anemia-->Resolved * Within normal * Monitor 3.) Hypokalemia-->resolved * resolved 4) Abnormal Chest xray-->resolved * CT Chest: no acute pathology noted; official report in the computer 5.) Impaired glucose tolerance * Hgba1c: 5.7 * Will need check in one year for a1c to prevent over diabetes 6.) HTN-->Chronic * continue home Cozaar 25mg PO daily * Aspirin 81mg PO daily * 2 gram diet 7.) Prophylaxis * Pepcid 20mg PO BID * Patient is ambulatory. * SCDs * Court Appointed temporary guardian. Mr. Dangelo Thomas [phone]--> agreement to send patient to assisted living. however, this facility must [place] in [place] since [place] is [place]. Disposition: pending approval to assisted living facility and has of temporary guardianship. patient has pending court date 08/09/17.
--- NOTE | 2017-08-02 10:32 | CP.PCM.PN ---
Subjective - Date & Time of Evaluation Date of Evaluation: 08/02/17 Time of Evaluation: 10:29 - Subjective Subjective: Mr. Nelson was seen and examined at the bedside. He is alert, oriented to person and place. He denies any headache, dizziness, lightheadedness, nausea, numbness , or vomiting. He remains on 1:1 sitter for patient safety. There was no untoward events overnight. Objective - Vital Signs/Intake and Output Vital Signs (last 24 hours): Temp Pulse Resp BP Pulse Ox 98.0 F 70 20 97/55 L 97 08/02/17 07:00 08/02/17 07:00 08/02/17 07:00 08/02/17 07:00 08/02/17 07:00 Intake and Output: 08/02/17 08/02/17 06:59 18:59 Intake Total 860 Balance 860 - Medications Medications: Current Medications Aspirin (Ecotrin) 81 mg PO DAILY [facility] Last Admin: 08/01/17 09:00 Dose: 81 mg Donepezil HCl (Aricept) 10 mg PO [facility] Last Admin: 08/01/17 21:23 Dose: 10 mg Famotidine (Pepcid) 20 mg PO DAILY [facility] Last Admin: 08/01/17 09:01 Dose: 20 mg Folic Acid (Folic Acid) 1 mg PO DAILY [facility] Last Admin: 08/01/17 09:00 Dose: 1 mg Losartan Potassium (Cozaar) 25 mg PO DAILY [facility] Last Admin: 08/01/17 09:01 Dose: 25 mg Memantine (Namenda) 10 mg PO DAILY [facility] Last Admin: 08/01/17 09:01 Dose: 10 mg Rosuvastatin Calcium (Crestor) 2.5 mg PO [facility] Last Admin: 08/01/17 21:23 Dose: 2.5 mg - Labs Labs: 07/30/17 07:22 07/30/17 07:22 PT 11.8 SECONDS (9.7-12.2) 06/21/17 22:04 INR 1.1 06/21/17 22:04 APTT 32 SECONDS (21-34) 06/21/17 22:04 - Constitutional Appears: No Acute Distress - Head Exam Head Exam: NORMAL INSPECTION - Neurological Exam Neurological Exam: Alert, Awake, Oriented x3 Neuro motor strength exam: Left Upper Extremity: 5, Right Upper Extremity: 5, Left Lower Extremity: 5, Right Lower Extremity: 5 Additional comments: Neurological unchanged from previous examination. Assessment and Plan (1) Dementia Assessment & Plan: Case discussed with Dr. Manzanares, continue all current medical regimen. Status: Chronic
[2017-08-02] MEDS: Rosuvastatin Calcium 2.5 mg Tab PO SCH (21:25)
--- NOTE | 2017-08-03 12:54 | CP.PCM.PN ---
Subjective - Date & Time of Evaluation Date of Evaluation: 08/03/17 Time of Evaluation: 12:51 - Subjective Subjective: Mr. Nelson was seen and examined at the bedside. He is alert, oriented. He denies any headache, dizziness, lightheadedness, blurred vision, nausea, or vomiting. He ambulates around his room with steady gait. He remains on 1:1 sitter for patient safety. There was no untoward events overnight. Objective - Vital Signs/Intake and Output Vital Signs (last 24 hours): Temp Pulse Resp BP Pulse Ox 97.8 F 70 20 104/62 96 08/03/17 07:43 08/03/17 07:43 08/03/17 07:43 08/03/17 07:43 08/03/17 07:43 Intake and Output: 08/03/17 08/03/17 06:59 18:59 Intake Total 500 500 Output Total 3 Balance 497 500 - Medications Medications: Current Medications Aspirin (Ecotrin) 81 mg PO DAILY [facility] Last Admin: 08/03/17 09:09 Dose: 81 mg Donepezil HCl (Aricept) 10 mg PO [facility] Last Admin: 08/02/17 21:25 Dose: 10 mg Famotidine (Pepcid) 20 mg PO DAILY [facility] Last Admin: 08/03/17 09:09 Dose: 20 mg Folic Acid (Folic Acid) 1 mg PO DAILY [facility] Last Admin: 08/03/17 09:09 Dose: 1 mg Losartan Potassium (Cozaar) 25 mg PO DAILY [facility] Last Admin: 08/03/17 09:09 Dose: 25 mg Memantine (Namenda) 10 mg PO DAILY [facility] Last Admin: 08/03/17 09:09 Dose: 10 mg Rosuvastatin Calcium (Crestor) 2.5 mg PO [facility] Last Admin: 08/02/17 21:25 Dose: 2.5 mg - Labs Labs: 07/30/17 07:22 07/30/17 07:22 PT 11.8 SECONDS (9.7-12.2) 06/21/17 22:04 INR 1.1 06/21/17 22:04 APTT 32 SECONDS (21-34) 06/21/17 22:04 - Constitutional Appears: No Acute Distress - Head Exam Head Exam: NORMAL INSPECTION - Neurological Exam Neurological Exam: Alert, Awake Neuro motor strength exam: Left Upper Extremity: 5, Right Upper Extremity: 5, Left Lower Extremity: 5, Right Lower Extremity: 5 Additional comments: Neurological unchanged from previous examination. Assessment and Plan (1) Dementia Assessment & Plan: Case discussed with Dr. Manzanares, continue all current medical regimen. There is no new recommendaton from neurology. Status: Chronic
--- NOTE | 2017-08-03 14:06 | CP.PCM.PN ---
<JulioGreer L. - Last Filed: 08/03/17 14:04> Subjective - Date & Time of Evaluation Date of Evaluation: 08/03/17 Time of Evaluation: 07:00 - Subjective Subjective: PGY1 Medicine Note - Dr. Sawyer's Service Patient seen and examined at bedside. He is oriented to person and place. Patient has no complaints. Patient denies any headache, chest pain, shortness of breath, abdominal pain, nausea, vomiting, constipation, or diarrhea. Objective - Vital Signs/Intake and Output Vital Signs (last 24 hours): Temp Pulse Resp BP Pulse Ox 97.8 F 70 20 104/62 96 08/03/17 07:43 08/03/17 07:43 08/03/17 07:43 08/03/17 07:43 08/03/17 07:43 Intake and Output: 08/03/17 08/03/17 06:59 18:59 Intake Total 500 980 Output Total 3 Balance 497 980 - Medications Medications: Current Medications Aspirin (Ecotrin) 81 mg PO DAILY [facility] Last Admin: 08/03/17 09:09 Dose: 81 mg Donepezil HCl (Aricept) 10 mg PO [facility] Last Admin: 08/02/17 21:25 Dose: 10 mg Famotidine (Pepcid) 20 mg PO DAILY [facility] Last Admin: 08/03/17 09:09 Dose: 20 mg Folic Acid (Folic Acid) 1 mg PO DAILY [facility] Last Admin: 08/03/17 09:09 Dose: 1 mg Losartan Potassium (Cozaar) 25 mg PO DAILY [facility] Last Admin: 08/03/17 09:09 Dose: 25 mg Memantine (Namenda) 10 mg PO DAILY [facility] Last Admin: 08/03/17 09:09 Dose: 10 mg Rosuvastatin Calcium (Crestor) 2.5 mg PO [facility] Last Admin: 08/02/17 21:25 Dose: 2.5 mg - Labs Labs: 07/30/17 07:22 07/30/17 07:22 PT 11.8 SECONDS (9.7-12.2) 06/21/17 22:04 INR 1.1 06/21/17 22:04 APTT 32 SECONDS (21-34) 06/21/17 22:04 - Constitutional Appears: Non-toxic, No Acute Distress - Head Exam Head Exam: ATRAUMATIC, NORMAL INSPECTION, NORMOCEPHALIC - Eye Exam Eye Exam: EOMI, Normal appearance - ENT Exam ENT Exam: Mucous Membranes Moist - Neck Exam Neck Exam: Full ROM - Respiratory Exam Respiratory Exam: Clear to Ausculation Bilateral, NORMAL BREATHING PATTERN - Cardiovascular Exam Cardiovascular Exam: REGULAR RHYTHM, +S1, +S2 - GI/Abdominal Exam GI & Abdominal Exam: Soft, Normal Bowel Sounds. absent: Tenderness - Extremities Exam Extremities Exam: Full ROM, Normal Inspection. absent: Pedal Edema - Neurological Exam Neurological Exam: Alert, Awake - Psychiatric Exam Psychiatric exam: Normal Affect, Normal Mood - Skin Skin Exam: Intact, Normal Color, Warm Assessment and Plan - Assessment and Plan (Free Text) Assessment: 1.) Family History of Alzheimer's Disease Early Onset of Dementia * Family Hx: patient had Alzheimer's Disease at age 71 * Patient was told by a neurologist he has early signs of dementia * Psych consult Dr. Valente --> help appreciated * CT scan of the head is negative * X-ray shows a apical granuloma * Neurology Dr. Manzanares--> help appreciated * Completed EEG 07/07/17 * Discussed patient may complete further workup as outpatient. * Negative heavy metal screen * Discussed with Dr. Manzanares 07/07 * Repeat MRI 07/09: no acute intracranial abnormality. Mild chronic microangiopathic changes and mild age-related global parenchymal volume loss. * No new recommendations from Neurology at this time * Elopement risk, will continue 1:1 observation Please note workup is in prior admission when patient eloped on discharge. * CT scan of the chest is negative and unremarkable * UDS is negative * UA: urine only + for ketones * Brain MRI: Limited motion degraded study. No evidence of acute hemorrhage or infarct. Minor chronic white matter ischemic changes are felt be present. Moderate generalized volume loss. * RPR: nonreactive * HIV: negative * TSH: within normal and repeat within normal * Folate: normal and repeat within normal * B12: normal and repeat within normal * Recommended to patient to follow-up with neurology outpatient and to establish care in the [facility] upon discharge Medications: * Aricept 10mg PO qHS * Namenda 10mg daily * Folic acid 1mg PO daily * Crestor 2.5mg PO HS 2.) Anemia-->Resolved * Within normal * Monitor 3.) Hypokalemia-->resolved * resolved 4) Abnormal Chest xray-->resolved * CT Chest: no acute pathology noted; official report in the computer 5.) Impaired glucose tolerance * Hgba1c: 5.7 * Will need check in one year for a1c to prevent over diabetes 6.) HTN-->Chronic * Continue home Cozaar 25mg PO daily * Aspirin 81mg PO daily 7.) Prophylaxis * Pepcid 20mg PO daily * SCDs, patient is ambulating, heparin discontinued * Court Appointed temporary guardian. Mr. Dangelo Thomas [phone]--> agreement to send patient to assisted living Disposition: Patient has temporary guardianship, currently awaiting placement at assisted living facility in [place] (per discussion with disease case manager). Patient has a court date for 08/09/17. <Tamera Sawyer V - Last Filed: 08/03/17 17:57> Objective - Vital Signs/Intake and Output Vital Signs (last 24 hours): Temp Pulse Resp BP Pulse Ox 98.7 F 83 20 114/74 97 08/03/17 15:00 08/03/17 15:00 08/03/17 15:00 08/03/17 15:00 08/03/17 15:00 Intake and Output: 08/03/17 08/03/17 06:59 18:59 Intake Total 500 1460 Output Total 3 Balance 497 1460 - Medications Medications: Current Medications Aspirin (Ecotrin) 81 mg PO DAILY [facility] Last Admin: 08/03/17 09:09 Dose: 81 mg Donepezil HCl (Aricept) 10 mg PO [facility] Last Admin: 08/02/17 21:25 Dose: 10 mg Famotidine (Pepcid) 20 mg PO DAILY [facility] Last Admin: 08/03/17 09:09 Dose: 20 mg Folic Acid (Folic Acid) 1 mg PO DAILY [facility] Last Admin: 08/03/17 09:09 Dose: 1 mg Losartan Potassium (Cozaar) 25 mg PO DAILY [facility] Last Admin: 08/03/17 09:09 Dose: 25 mg Memantine (Namenda) 10 mg PO DAILY [facility] Last Admin: 08/03/17 09:09 Dose: 10 mg Rosuvastatin Calcium (Crestor) 2.5 mg PO [facility] Last Admin: 08/02/17 21:25 Dose: 2.5 mg - Labs Labs: 07/30/17 07:22 07/30/17 07:22 PT 11.8 SECONDS (9.7-12.2) 06/21/17 22:04 INR 1.1 06/21/17 22:04 APTT 32 SECONDS (21-34) 06/21/17 22:04 Attending/Attestation - Attestation I have personally seen and examined this patient.: Yes I have fully participated in the care of the patient.: Yes I have reviewed all pertinent clinical information, including history, physical exam and plan: Yes Notes (Text): Patient seen, examined, case discussed with medical imaging specialist. Patient denies acute complaints. Patient unable to recognize it is a new year, day, or the month. Patient still recognizes that [employer] is the president. Continue present management. Awaiting court date. Assessment/Plan: 1.) Family History of Alzheimer's Disease Early Onset of Dementia * Family Hx: patient had Alzheimer's Disease at age 71 * Patient was told by a neurologist he has early signs of dementia * Psych consult Dr. Valente --> help appreciated * CT scan of the head is negative * X-ray shows a apical granuloma * Neurology Dr. Manzanares-->help appreciated * Completed EEG 07/07/17 * Discussed patient may complete further workup as outpatient. * negative heavy metal screen * Discussed with Dr. manzanares 07/07 * Repeat MRI 07/09: no acute intracranial abnormality. Mild chronic microangiopathic changes and mild age-related global parenchymal volume loss. Please note workup is in prior admission when patient eloped on discharge. * CT scan of the chest is negative and unremarkable * UDS is negative * UA: urine only + for ketones * Brain MRI: Limited motion degraded study. No evidence of acute hemorrhage or infarct. Minor chronic white matter ischemic changes are felt be present. Moderate generalized volume loss. * RPR: nonreactive * HIV: negative * TSH: within normal and repeat within normal * Folate: normal and repeat within normal * B12: normal and repeat within normal * Recommended to patient to follow-up with neurology outpatient and to establish care in the [facility] upon discharge Medications: * Aricept 10mg PO qHS * Namenda 10mg bid * Folic acid 1mg PO daily * Crestor 2.5mg PO HS 2.) Anemia-->Resolved * Within normal * Monitor 3.) Hypokalemia-->resolved * resolved 4) Abnormal Chest xray-->resolved * CT Chest: no acute pathology noted; official report in the computer 5.) Impaired glucose tolerance * Hgba1c: 5.7 * Will need check in one year for a1c to prevent over diabetes 6.) HTN-->Chronic * continue home Cozaar 25mg PO daily * Aspirin 81mg PO daily * 2 gram diet 7.) Prophylaxis * Pepcid 20mg PO BID * Patient is ambulatory. * SCDs * Court Appointed temporary guardian. Mr. Dangelo Thomas [phone]--> agreement to send patient to assisted living. however, this facility must be in [place] since patient is from [place]. Disposition: pending approval to assisted living facility and has of temporary guardianship. patient has pending court date 08/09/17.
[2017-08-03] MEDS: Rosuvastatin Calcium 2.5 mg Tab PO SCH (21:20)
--- NOTE | 2017-08-04 00:33 | CP.PCM.PN ---
<Tabitha Charles - Last Filed: 08/04/17 02:23> Subjective - Date & Time of Evaluation Date of Evaluation: 08/04/17 Time of Evaluation: 00:32 - Subjective Subjective: Medicine Progress Note: Hospitalist Service Patient seen and examined at bedside. Per nursing no acute events overnight. Patient is doing well, resting in bed. Offers no complaints at this time. Denies headaches, dizziness, cp, palpitations, sob, abdominal pain, urinary symptoms, changes in bowel habits. Currently awaiting court date. Objective - Vital Signs/Intake and Output Vital Signs (last 24 hours): Temp Pulse Resp BP Pulse Ox 97.7 F 76 20 108/73 98 08/03/17 23:22 08/03/17 23:22 08/03/17 23:22 08/03/17 23:22 08/03/17 23:22 Intake and Output: 08/03/17 08/04/17 18:59 06:59 Intake Total 1460 400 Balance 1460 400 - Medications Medications: Current Medications Aspirin (Ecotrin) 81 mg PO DAILY [facility] Last Admin: 08/03/17 09:09 Dose: 81 mg Donepezil HCl (Aricept) 10 mg PO HS [facility] Last Admin: 08/03/17 21:20 Dose: 10 mg Famotidine (Pepcid) 20 mg PO DAILY [facility] Last Admin: 08/03/17 09:09 Dose: 20 mg Folic Acid (Folic Acid) 1 mg PO DAILY [facility] Last Admin: 08/03/17 09:09 Dose: 1 mg Losartan Potassium (Cozaar) 25 mg PO DAILY [facility] Last Admin: 08/03/17 09:09 Dose: 25 mg Memantine (Namenda) 10 mg PO DAILY [facility] Last Admin: 08/03/17 09:09 Dose: 10 mg Rosuvastatin Calcium (Crestor) 2.5 mg PO HS [facility] Last Admin: 08/03/17 21:20 Dose: 2.5 mg - Labs Labs: 07/30/17 07:22 07/30/17 07:22 PT 11.8 SECONDS (9.7-12.2) 06/21/17 22:04 INR 1.1 06/21/17 22:04 APTT 32 SECONDS (21-34) 06/21/17 22:04 - Constitutional Appears: Well, No Acute Distress - Head Exam Head Exam: ATRAUMATIC, NORMAL INSPECTION - Eye Exam Eye Exam: EOMI, Normal appearance - ENT Exam ENT Exam: Mucous Membranes Moist - Neck Exam Neck Exam: Full ROM - Respiratory Exam Respiratory Exam: Clear to Ausculation Bilateral, NORMAL BREATHING PATTERN. absent: Rales, Rhonchi, Wheezes - Cardiovascular Exam Cardiovascular Exam: REGULAR RHYTHM, +S1, +S2 - GI/Abdominal Exam GI & Abdominal Exam: Soft, Normal Bowel Sounds. absent: Firm, Guarding, Rigid, Tenderness - Extremities Exam Extremities Exam: Full ROM, Normal Inspection - Back Exam Back Exam: NORMAL INSPECTION - Neurological Exam Neurological Exam: Alert, Awake, CN II-XII Intact, Normal Gait - Psychiatric Exam Psychiatric exam: Normal Affect, Normal Mood - Skin Skin Exam: Dry, Normal Color, Warm Assessment and Plan - Assessment and Plan (Free Text) Assessment: 1.) Family History of Alzheimer's Disease Early Onset of Dementia * Family Hx: patient had Alzheimer's Disease at age 71 * Patient was told by a neurologist he has early signs of dementia * Psych consult Dr. Valente --> help appreciated * CT scan of the head is negative * X-ray shows a apical granuloma * Neurology Dr. Manzanares--> help appreciated * Completed EEG 07/07/17 * Discussed patient may complete further workup as outpatient. * Negative heavy metal screen * Discussed with Dr. Manzanares 07/07 * Repeat MRI 07/09: no acute intracranial abnormality. Mild chronic microangiopathic changes and mild age-related global parenchymal volume loss. * No new recommendations from Neurology at this time * Elopement risk, will continue 1:1 observation Please note workup is in prior admission when patient eloped on discharge. * CT scan of the chest is negative and unremarkable * UDS is negative * UA: urine only + for ketones * Brain MRI: Limited motion degraded study. No evidence of acute hemorrhage or infarct. Minor chronic white matter ischemic changes are felt be present. Moderate generalized volume loss. * RPR: nonreactive * HIV: negative * TSH: within normal and repeat within normal * Folate: normal and repeat within normal * B12: normal and repeat within normal * Recommended to patient to follow-up with neurology outpatient and to establish care in the [facility] upon discharge Medications: * Aricept 10mg PO qHS * Namenda 10mg daily * Folic acid 1mg PO daily * Crestor 2.5mg PO HS 2.) Anemia-->Resolved * Within normal * Monitor 3.) Hypokalemia-->resolved * Resolved * Will monitor labs qweekly 4) Abnormal Chest xray-->resolved * CT Chest: no acute pathology noted; official report in the computer 5.) Impaired glucose tolerance * Hgba1c: 5.7 * Will need check in one year for a1c to prevent over diabetes 6.) HTN-->Chronic * Continue home Cozaar 25mg PO daily * Aspirin 81mg PO daily 7.) Prophylaxis * Pepcid 20mg PO daily * SCDs, patient is ambulating, heparin discontinued * Court Appointed temporary guardian. Mr. Dangelo Thomas [phone]--> agreement to send patient to assisted living Disposition: Patient has temporary guardianship, currently awaiting placement at assisted living facility in [place] (per discussion with disease case manager rn). Patient has a court date for 08/09/17. <Tamera Sawyer V - Last Filed: 08/04/17 09:20> Objective - Vital Signs/Intake and Output Vital Signs (last 24 hours): Temp Pulse Resp BP Pulse Ox 97.6 F 78 20 123/84 97 08/04/17 08:33 08/04/17 08:33 08/04/17 08:33 08/04/17 08:33 08/04/17 08:33 Intake and Output: 08/04/17 08/04/17 06:59 18:59 Intake Total 600 Balance 600 - Medications Medications: Current Medications Aspirin (Ecotrin) 81 mg PO DAILY [facility] Last Admin: 08/04/17 09:10 Dose: 81 mg Donepezil HCl (Aricept) 10 mg PO HS [facility] Last Admin: 08/03/17 21:20 Dose: 10 mg Famotidine (Pepcid) 20 mg PO DAILY [facility] Last Admin: 08/04/17 09:10 Dose: 20 mg Folic Acid (Folic Acid) 1 mg PO DAILY [facility] Last Admin: 08/04/17 09:10 Dose: 1 mg Losartan Potassium (Cozaar) 25 mg PO DAILY [facility] Last Admin: 08/04/17 09:11 Dose: 25 mg Memantine (Namenda) 10 mg PO DAILY [facility] Last Admin: 08/04/17 09:11 Dose: 10 mg Rosuvastatin Calcium (Crestor) 2.5 mg PO [facility] Last Admin: 08/03/17 21:20 Dose: 2.5 mg - Labs Labs: 07/30/17 07:22 07/30/17 07:22 PT 11.8 SECONDS (9.7-12.2) 06/21/17 22:04 INR 1.1 06/21/17 22:04 APTT 32 SECONDS (21-34) 06/21/17 22:04 Attending/Attestation - Attestation I have personally seen and examined this patient.: Yes I have fully participated in the care of the patient.: Yes I have reviewed all pertinent clinical information, including history, physical exam and plan: Yes Notes (Text): Patient seen, examined, case discussed with medical affairs director. Patient denies acute complaints. Patient unable to recognize it is a new year, day, or the month. 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 . Continue present management. Awaiting court date. Assessment/Plan: 1.) Family History of Alzheimer's Disease Early Onset of Dementia * Family Hx: patient had Alzheimer's Disease at age 71 * Patient was told by a neurologist he has early signs of dementia * Psych consult Dr. Valente --> help appreciated * CT scan of the head is negative * X-ray shows a apical granuloma * Neurology Dr. Manzanares-->help appreciated * Completed EEG 07/07/17 * Discussed patient may complete further workup as outpatient. * negative heavy metal screen * Discussed with Dr. manzanares 07/07 * Repeat MRI 07/09: no acute intracranial abnormality. Mild chronic microangiopathic changes and mild age-related global parenchymal volume loss. Please note workup is in prior admission when patient eloped on discharge. * CT scan of the chest is negative and unremarkable * UDS is negative * UA: urine only + for ketones * Brain MRI: Limited motion degraded study. No evidence of acute hemorrhage or infarct. Minor chronic white matter ischemic changes are felt be present. Moderate generalized volume loss. * RPR: nonreactive * HIV: negative * TSH: within normal and repeat within normal * Folate: normal and repeat within normal * B12: normal and repeat within normal * Recommended to patient to follow-up with neurology outpatient and to establish care in the [facility] upon discharge Medications: * Aricept 10mg PO qHS * Namenda 10mg bid * Folic acid 1mg PO daily * Crestor 2.5mg PO HS 2.) Anemia-->Resolved * Within normal * Monitor 3.) Hypokalemia-->resolved * resolved 4) Abnormal Chest xray-->resolved * CT Chest: no acute pathology noted; official report in the computer 5.) Impaired glucose tolerance * Hgba1c: 5.7 * Will need check in one year for a1c to prevent over diabetes 6.) HTN-->Chronic * continue home Cozaar 25mg PO daily * Aspirin 81mg PO daily * 2 gram diet 7.) Prophylaxis * Pepcid 20mg PO BID * Patient is ambulatory. * SCDs * Court Appointed temporary guardian. Mr. Dangelo Thomas [phone]--> agreement to send patient to assisted living. however, this facility must [place] in [place] since [place]. Disposition: pending approval to assisted living facility and has of temporary guardianship. patient has pending court date 08/09/17.
[2017-08-04] MEDS: Rosuvastatin Calcium 2.5 mg Tab PO SCH (21:45)
--- NOTE | 2017-08-05 00:46 | CP.PCM.PN ---
<Tabitha Charles - Last Filed: 08/05/17 06:35> Subjective - Date & Time of Evaluation Date of Evaluation: 08/05/17 Time of Evaluation: 00:45 - Subjective Subjective: Medicine Progress Note: Hospitalist Service Patient seen and examined at bedside. Per nursing, no acute events overnight. Patient is doing well, resting comfortably. Denies headaches, dizziness, cp, palpitations, sob, abdominal pain, urinary symptoms, changes in bowel habits. Objective - Vital Signs/Intake and Output Vital Signs (last 24 hours): Temp Pulse Resp BP Pulse Ox 98.4 F 65 20 109/81 97 08/04/17 23:32 08/04/17 23:32 08/04/17 23:32 08/04/17 23:32 08/04/17 23:32 Intake and Output: 08/04/17 08/05/17 18:59 06:59 Intake Total 450 350 Balance 450 350 - Medications Medications: Current Medications Aspirin (Ecotrin) 81 mg PO DAILY [facility] Last Admin: 08/04/17 09:10 Dose: 81 mg Donepezil HCl (Aricept) 10 mg PO [facility] Last Admin: 08/04/17 21:45 Dose: 10 mg Famotidine (Pepcid) 20 mg PO DAILY [facility] Last Admin: 08/04/17 09:10 Dose: 20 mg Folic Acid (Folic Acid) 1 mg PO DAILY [facility] Last Admin: 08/04/17 09:10 Dose: 1 mg Losartan Potassium (Cozaar) 25 mg PO DAILY [facility] Last Admin: 08/04/17 09:11 Dose: 25 mg Memantine (Namenda) 10 mg PO DAILY [facility] Last Admin: 08/04/17 09:11 Dose: 10 mg Rosuvastatin Calcium (Crestor) 2.5 mg PO [facility] Last Admin: 08/04/17 21:45 Dose: 2.5 mg - Labs Labs: 07/30/17 07:22 07/30/17 07:22 PT 11.8 SECONDS (9.7-12.2) 06/21/17 22:04 INR 1.1 06/21/17 22:04 APTT 32 SECONDS (21-34) 06/21/17 22:04 - Additional Findings Additional findings: - Constitutional Appears: Well, No Acute Distress - Head Exam Head Exam: ATRAUMATIC, NORMAL INSPECTION - Eye Exam Eye Exam: EOMI, Normal appearance - ENT Exam ENT Exam: Mucous Membranes Moist - Neck Exam Neck Exam: Full ROM - Respiratory Exam Respiratory Exam: Clear to Ausculation Bilateral, NORMAL BREATHING PATTERN. absent: Rales, Rhonchi, Wheezes - Cardiovascular Exam Cardiovascular Exam: REGULAR RHYTHM, +S1, +S2 - GI/Abdominal Exam GI & Abdominal Exam: Soft, Normal Bowel Sounds. absent: Firm, Guarding, Rigid, Tenderness - Extremities Exam Extremities Exam: Full ROM, Normal Inspection - Back Exam Back Exam: NORMAL INSPECTION - Neurological Exam Neurological Exam: Alert, Awake, CN II-XII Intact, Normal Gait - Psychiatric Exam Psychiatric exam: Normal Affect, Normal Mood - Skin Skin Exam: Dry, Normal Color, Warm Assessment and Plan - Assessment and Plan (Free Text) Assessment: 1.) Family History of Alzheimer's Disease Early Onset of Dementia * Family Hx: patient had Alzheimer's Disease at age 71 * Patient was told by a neurologist he has early signs of dementia * Psych consult Dr. Valente --> help appreciated * CT scan of the head is negative * X-ray shows a apical granuloma * Neurology Dr. Manzanares--> help appreciated * Completed EEG 07/07/17 * Discussed patient may complete further workup as outpatient. * Negative heavy metal screen * Discussed with Dr. Manzanares 07/07 * Repeat MRI 07/09: no acute intracranial abnormality. Mild chronic microangiopathic changes and mild age-related global parenchymal volume loss. * No new recommendations from Neurology at this time * Elopement risk, will continue 1:1 observation Please note workup is in prior admission when patient eloped on discharge. * CT scan of the chest is negative and unremarkable * UDS is negative * UA: urine only + for ketones * Brain MRI: Limited motion degraded study. No evidence of acute hemorrhage or infarct. Minor chronic white matter ischemic changes are felt be present. Moderate generalized volume loss. * RPR: nonreactive * HIV: negative * TSH: within normal and repeat within normal * Folate: normal and repeat within normal * B12: normal and repeat within normal * Recommended to patient to follow-up with neurology outpatient and to establish care in the [facility] upon discharge Medications: * Aricept 10mg PO qHS * Namenda 10mg daily * Folic acid 1mg PO daily * Crestor 2.5mg PO HS 2.) Anemia-->Resolved * Within normal * Monitor 3.) Hypokalemia-->resolved * Resolved * Will monitor labs qweekly 4) Abnormal Chest xray-->resolved * CT Chest: no acute pathology noted; official report in the computer 5.) Impaired glucose tolerance * Hgba1c: 5.7 * Will need check in one year for a1c to prevent over diabetes 6.) HTN-->Chronic * Continue home Cozaar 25mg PO daily * Aspirin 81mg PO daily 7.) Prophylaxis * Pepcid 20mg PO daily * SCDs, patient is ambulating, heparin discontinued * Court Appointed temporary guardian. Mr. Dangelo Thomas [phone]--> agreement to send patient to assisted living Disposition: Patient has temporary guardianship, currently awaiting placement at assisted living facility in [place] (per discussion with casework manager). Patient has a court date for 08/09/17. <Tamera Sawyer V - Last Filed: 08/05/17 08:47> Objective - Vital Signs/Intake and Output Vital Signs (last 24 hours): Temp Pulse Resp BP Pulse Ox 98.2 F 64 20 104/69 98 08/05/17 07:27 08/05/17 07:27 08/05/17 07:27 08/05/17 07:27 08/05/17 07:27 Intake and Output: 08/05/17 08/05/17 06:59 18:59 Intake Total 650 Balance 650 - Medications Medications: Current Medications Aspirin (Ecotrin) 81 mg PO DAILY [facility] Last Admin: 08/04/17 09:10 Dose: 81 mg Donepezil HCl (Aricept) 10 mg PO HS [facility] Last Admin: 08/04/17 21:45 Dose: 10 mg Famotidine (Pepcid) 20 mg PO DAILY [facility] Last Admin: 08/04/17 09:10 Dose: 20 mg Folic Acid (Folic Acid) 1 mg PO DAILY [facility] Last Admin: 08/04/17 09:10 Dose: 1 mg Losartan Potassium (Cozaar) 25 mg PO DAILY [facility] Last Admin: 08/04/17 09:11 Dose: 25 mg Memantine (Namenda) 10 mg PO DAILY [facility] Last Admin: 08/04/17 09:11 Dose: 10 mg Rosuvastatin Calcium (Crestor) 2.5 mg PO [facility] Last Admin: 08/04/17 21:45 Dose: 2.5 mg - Labs Labs: 07/30/17 07:22 07/30/17 07:22 PT 11.8 SECONDS (9.7-12.2) 06/21/17 22:04 INR 1.1 06/21/17 22:04 APTT 32 SECONDS (21-34) 06/21/17 22:04 Attending/Attestation - Attestation I have personally seen and examined this patient.: Yes I have fully participated in the care of the patient.: Yes I have reviewed all pertinent clinical information, including history, physical exam and plan: Yes Notes (Text): Patient seen, examined, case discussed with medical affairs leader. Patient denies acute complaints. Patient able to say it is July, unable to say correct day nor year. 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 Patient is aware of court date this upcoming week . Continue present management. Awaiting court date. Assessment/Plan: 1.) Family History of Alzheimer's Disease Early Onset of Dementia * Family Hx: patient had Alzheimer's Disease at age 71 * Patient was told by a neurologist he has early signs of dementia * Psych consult Dr. Valente --> help appreciated * CT scan of the head is negative * X-ray shows a apical granuloma * Neurology Dr. Manzanares-->help appreciated * Completed EEG 07/07/17 * Discussed patient may complete further workup as outpatient. * negative heavy metal screen * Discussed with Dr. manzanares 07/07 * Repeat MRI 07/09: no acute intracranial abnormality. Mild chronic microangiopathic changes and mild age-related global parenchymal volume loss. Please note workup is in prior admission when patient eloped on discharge. * CT scan of the chest is negative and unremarkable * UDS is negative * UA: urine only + for ketones * Brain MRI: Limited motion degraded study. No evidence of acute hemorrhage or infarct. Minor chronic white matter ischemic changes are felt be present. Moderate generalized volume loss. * RPR: nonreactive * HIV: negative * TSH: within normal and repeat within normal * Folate: normal and repeat within normal * B12: normal and repeat within normal * Recommended to patient to follow-up with neurology outpatient and [facility] Medications: * Aricept 10mg PO qHS * Namenda 10mg bid * Folic acid 1mg PO daily * Crestor 2.5mg PO HS 2.) Anemia-->Resolved * Within normal * Monitor 3.) Hypokalemia-->resolved * resolved 4) Abnormal Chest xray-->resolved * CT Chest: no acute pathology noted; official report in the computer 5.) Impaired glucose tolerance * Hgba1c: 5.7 * Will need check in one year for a1c to prevent over diabetes 6.) HTN-->Chronic * continue home Cozaar 25mg PO daily * Aspirin 81mg PO daily * 2 gram diet 7.) Prophylaxis * Pepcid 20mg PO BID * Patient is ambulatory. * SCDs * Court Appointed temporary guardian. Mr. Dangelo Thomas [phone]--> agreement to send patient to assisted living. however, this facility must [place] in [place] since [place]. Disposition: pending approval to assisted living facility and has of temporary guardianship. patient has pending court date 08/09/17.
[2017-08-05] MEDS: Rosuvastatin Calcium 2.5 mg Tab PO SCH (21:39)
[2017-08-06 07:58] LABS: BASO % 0.4 % (0.0-2.0); EOS # 0.1 K/uL (0.0-0.7); EOS % 1.1 % (0.0-4.0); HEMOGLOBIN 15.2 g/dL (12.0-18.0); LYMPH # 1.2 K/uL (1.0-4.3); LYMPH % 22.1 % (20.0-40.0); MEAN CELL VOLUME 93.4 fL (80.0-94.0); MEAN CORPUSCULAR HEMOGLOBIN 31.3 pg (27.0-31.0); MEAN CORPUSCULAR HGB CONC 33.5 g/dL (33.0-37.0); MONO # 0.5 K/uL (0.0-0.8); MONO % 8.1 % (0.0-10.0); NEUT # 3.9 K/uL (1.8-7.0); NEUT % 68.3 % (50.0-75.0); RBC 4.87 Mil/uL (4.40-5.90); RED CELL DISTRIBUTION WIDTH 12.6 % (11.5-14.5); WHITE BLOOD COUNT 5.6 K/uL (4.8-10.8)
--- NOTE | 2017-08-06 08:15 | CP.PCM.PN ---
<Tabitha Charles - Last Filed: 08/06/17 15:06> Subjective - Date & Time of Evaluation Date of Evaluation: 08/06/17 Time of Evaluation: 08:14 - Subjective Subjective: Medicine Progress Note: Hospitalist Service Patient seen and examined at bedside. Per nursing no acute events overnight. Patient is doing well, offers no complaints at this time. Patient states that he will make his laps around the hallway later. Denies headaches, dizziness, cp , palpitations, sob, abdominal pain, urinary symptoms, changes in bowel habits. Objective - Vital Signs/Intake and Output Vital Signs (last 24 hours): Temp Pulse Resp BP Pulse Ox 97.9 F 65 20 115/69 97 08/05/17 23:36 08/05/17 23:36 08/05/17 23:36 08/05/17 23:36 08/05/17 23:36 Intake and Output: 08/06/17 08/06/17 06:59 18:59 Intake Total 400 500 Balance 400 500 - Medications Medications: Current Medications Aspirin (Ecotrin) 81 mg PO DAILY [facility] Last Admin: 08/05/17 09:51 Dose: 81 mg Donepezil HCl (Aricept) 10 mg PO [facility] Last Admin: 08/05/17 21:39 Dose: 10 mg Famotidine (Pepcid) 20 mg PO DAILY [facility] Last Admin: 08/05/17 09:51 Dose: 20 mg Folic Acid (Folic Acid) 1 mg PO DAILY [facility] Last Admin: 08/05/17 09:51 Dose: 1 mg Losartan Potassium (Cozaar) 25 mg PO DAILY [facility] Last Admin: 08/05/17 09:51 Dose: 25 mg Memantine (Namenda) 10 mg PO DAILY [facility] Last Admin: 08/05/17 09:51 Dose: 10 mg Rosuvastatin Calcium (Crestor) 2.5 mg PO [facility] Last Admin: 08/05/17 21:39 Dose: 2.5 mg - Labs Labs: 08/06/17 07:41 07/30/17 07:22 PT 11.8 SECONDS (9.7-12.2) 06/21/17 22:04 INR 1.1 06/21/17 22:04 APTT 32 SECONDS (21-34) 06/21/17 22:04 - Constitutional Appears: Well, No Acute Distress - Head Exam Head Exam: ATRAUMATIC, NORMAL INSPECTION - Eye Exam Eye Exam: EOMI, Normal appearance - ENT Exam ENT Exam: Mucous Membranes Moist - Neck Exam Neck Exam: Full ROM - Respiratory Exam Respiratory Exam: Clear to Ausculation Bilateral, NORMAL BREATHING PATTERN. absent: Rales, Rhonchi, Wheezes - Cardiovascular Exam Cardiovascular Exam: REGULAR RHYTHM, +S1, +S2 - GI/Abdominal Exam GI & Abdominal Exam: Soft, Normal Bowel Sounds. absent: Firm, Guarding, Rigid, Tenderness - Rectal Exam Rectal Exam: Deferred - Extremities Exam Extremities Exam: Normal Capillary Refill, Normal Inspection. absent: Calf Tenderness - Neurological Exam Neurological Exam: Alert, Awake, Normal Gait - Psychiatric Exam Psychiatric exam: Normal Affect, Normal Mood - Skin Skin Exam: Dry, Normal Color, Warm Assessment and Plan - Assessment and Plan (Free Text) Assessment: 1.) Family History of Alzheimer's Disease Early Onset of Dementia * Family Hx: patient had Alzheimer's Disease at age 71 * Patient was told by a neurologist he has early signs of dementia * Psych consult Dr. Valente --> help appreciated * CT scan of the head is negative * X-ray shows a apical granuloma * Neurology Dr. Manzanares--> help appreciated * Completed EEG 07/07/17 * Discussed patient may complete further workup as outpatient. * Negative heavy metal screen * Discussed with Dr. Manzanares 07/07 * Repeat MRI 07/09: no acute intracranial abnormality. Mild chronic microangiopathic changes and mild age-related global parenchymal volume loss. * No new recommendations from Neurology at this time * Elopement risk, will continue 1:1 observation Please note workup is in prior admission when patient eloped on discharge. * CT scan of the chest is negative and unremarkable * UDS is negative * UA: urine only + for ketones * Brain MRI: Limited motion degraded study. No evidence of acute hemorrhage or infarct. Minor chronic white matter ischemic changes are felt be present. Moderate generalized volume loss. * RPR: nonreactive * HIV: negative * TSH: within normal and repeat within normal * Folate: normal and repeat within normal * B12: normal and repeat within normal * Recommended to patient to follow-up with neurology outpatient and to establish care in the [facility] upon discharge Medications: * Aricept 10mg PO qHS * Namenda 10mg daily * Folic acid 1mg PO daily * Crestor 2.5mg PO HS 2.) Anemia-->Resolved * Within normal * Monitor 3.) Hypokalemia-->resolved * Resolved * Will monitor labs qweekly 4) Abnormal Chest xray-->resolved * CT Chest: no acute pathology noted; official report in the computer 5.) Impaired glucose tolerance * Hgba1c: 5.7 * Will need check in one year for a1c to prevent over diabetes 6.) HTN-->Chronic * Continue home Cozaar 25mg PO daily * Aspirin 81mg PO daily 7.) Prophylaxis * Pepcid 20mg PO daily * SCDs, patient is ambulating, heparin discontinued * Court Appointed temporary guardian. Mr. Dangelo Thomas [phone]--> agreement to send patient to assisted living Disposition: Patient has temporary guardianship, currently awaiting placement at assisted living facility in [place] (per discussion with welfare case worker). Patient has a court date for 08/09/17. <Gary Damon - Last Filed: 08/06/17 20:36> Objective - Vital Signs/Intake and Output Vital Signs (last 24 hours): Temp Pulse Resp BP Pulse Ox 98.1 F 65 20 108/71 98 08/06/17 15:00 08/06/17 15:00 08/06/17 15:00 08/06/17 15:00 08/06/17 15:00 Intake and Output: 08/06/17 08/07/17 18:59 06:59 Intake Total 500 Balance 500 - Medications Medications: Current Medications Aspirin (Ecotrin) 81 mg PO DAILY [facility] Last Admin: 08/06/17 09:31 Dose: 81 mg Donepezil HCl (Aricept) 10 mg PO HS [facility] Last Admin: 08/05/17 21:39 Dose: 10 mg Famotidine (Pepcid) 20 mg PO DAILY [facility] Last Admin: 08/06/17 09:32 Dose: 20 mg Folic Acid (Folic Acid) 1 mg PO DAILY [facility] Last Admin: 08/06/17 09:32 Dose: 1 mg Losartan Potassium (Cozaar) 25 mg PO DAILY [facility] Last Admin: 08/06/17 09:32 Dose: 25 mg Memantine (Namenda) 10 mg PO DAILY [facility] Last Admin: 08/06/17 09:31 Dose: 10 mg Rosuvastatin Calcium (Crestor) 2.5 mg PO HS [facility] Last Admin: 08/05/17 21:39 Dose: 2.5 mg - Labs Labs: 08/06/17 07:41 08/06/17 07:41 PT 11.8 SECONDS (9.7-12.2) 06/21/17 22:04 INR 1.1 06/21/17 22:04 APTT 32 SECONDS (21-34) 06/21/17 22:04 Attending/Attestation - Attestation I have personally seen and examined this patient.: Yes I have fully participated in the care of the patient.: Yes I have reviewed all pertinent clinical information, including history, physical exam and plan: Yes Notes (Text): 08/06/17 20:36 Hospitalist Progress Note Patient was seen and examined at 10:30 AM 08/06/17 358 A HEENT, Cardio, Resp, GI, Ext, CN exams were unremarkable Assessments: 1). Dimentia: Aricept, Namenda, Folic Acid, Crestor, ASA 2). Anemia: resolved 3). Hypokalemia: resolved 4). Abnormal Chest X Ray (Granuloma?): CT Chest was unremarkable 5). Impaired Fasting Glucose: HgBA1C was 5.7 6). HTN: Cozaar 7). Prophylaxis: Pepcid, SCD, 1:1 observation for elopement risk, patient is walking 10 laps around the medical floor every hour [facility] who applied for guardianship is making arrangements for placement. Patient has court date on 08/09/17. B[employer] Tie Machine Operator Lisa and Road Consultant Rashard are aware.
[2017-08-06 08:51] LABS: ALB/GLOB RATIO 1.4 (1.0-2.1); ALBUMIN 4.1 g/dL (3.5-5.0); ALT/SGPT 45 U/L (21-72); AST/SGOT 28 U/L (17-59); BLOOD UREA NITROGEN 16 mg/dL (9-20); CALCIUM 8.7 mg/dl (8.6-10.4); GFR AFRICAN-AMERICAN > 60; GFR NON-AFRICAN AMERICAN > 60
--- NOTE | 2017-08-06 15:04 | CP.PCM.PN ---
Subjective - Date & Time of Evaluation Date of Evaluation: 08/06/17 Time of Evaluation: 15:01 - Subjective Subjective: Mr. Nelson was seen and examined at the bedside. He remains alert, oriented. He states of his days in the hospital will be over soon since he is going to have his court days is approaching. He denies any headache, dizziness, lightheadedness, blurred vision, nausea, or vomiting. He remains on 1:1 sitter for patient safety. There was no untoward events overnight. Objective - Vital Signs/Intake and Output Vital Signs (last 24 hours): Temp Pulse Resp BP Pulse Ox 97.6 F 76 20 118/86 99 08/06/17 08:16 08/06/17 08:16 08/06/17 08:16 08/06/17 08:16 08/06/17 08:16 Intake and Output: 08/06/17 08/06/17 06:59 18:59 Intake Total 400 500 Balance 400 500 - Medications Medications: Current Medications Aspirin (Ecotrin) 81 mg PO DAILY [facility] Last Admin: 08/06/17 09:31 Dose: 81 mg Donepezil HCl (Aricept) 10 mg PO [facility] Last Admin: 08/05/17 21:39 Dose: 10 mg Famotidine (Pepcid) 20 mg PO DAILY [facility] Last Admin: 08/06/17 09:32 Dose: 20 mg Folic Acid (Folic Acid) 1 mg PO DAILY [facility] Last Admin: 08/06/17 09:32 Dose: 1 mg Losartan Potassium (Cozaar) 25 mg PO DAILY [facility] Last Admin: 08/06/17 09:32 Dose: 25 mg Memantine (Namenda) 10 mg PO DAILY [facility] Last Admin: 08/06/17 09:31 Dose: 10 mg Rosuvastatin Calcium (Crestor) 2.5 mg PO [facility] Last Admin: 08/05/17 21:39 Dose: 2.5 mg - Labs Labs: 08/06/17 07:41 08/06/17 07:41 PT 11.8 SECONDS (9.7-12.2) 06/21/17 22:04 INR 1.1 06/21/17 22:04 APTT 32 SECONDS (21-34) 06/21/17 22:04 - Constitutional Appears: No Acute Distress - Head Exam Head Exam: NORMAL INSPECTION - Neurological Exam Neurological Exam: Alert, Awake Neuro motor strength exam: Left Upper Extremity: 5, Right Upper Extremity: 5, Left Lower Extremity: 5, Right Lower Extremity: 5 Additional comments: Neurological unchanged from previous examination. Assessment and Plan (1) Dementia Assessment & Plan: Case discussed with Dr. Manzanares, continue all current medical therapy. There is no new recommendations from neurology. Status: Chronic
[2017-08-06] MEDS: Rosuvastatin Calcium 2.5 mg Tab PO SCH (21:24)
--- NOTE | 2017-08-07 11:40 | CP.PCM.PN ---
<Tabitha Charles - Last Filed: 08/07/17 15:03> Subjective - Date & Time of Evaluation Date of Evaluation: 08/07/17 Time of Evaluation: 11:39 - Subjective Subjective: Medicine Progress Note: Hospitalist Service Patient seen and examined at bedside. Per nursing no acute events overnight. Patient is doing well, offers no complaints at this time. Denies headaches, dizziness, cp, palpitations, sob, abdominal pain, urinary symptoms, changes in bowel habits. Objective - Vital Signs/Intake and Output Vital Signs (last 24 hours): Temp Pulse Resp BP Pulse Ox 98.4 F 66 20 98/61 L 96 08/07/17 07:32 08/07/17 07:32 08/07/17 07:32 08/07/17 07:32 08/07/17 07:32 Intake and Output: 08/07/17 08/07/17 06:59 18:59 Intake Total 350 Balance 350 - Medications Medications: Current Medications Aspirin (Ecotrin) 81 mg PO DAILY [facility] Last Admin: 08/07/17 09:08 Dose: 81 mg Donepezil HCl (Aricept) 10 mg PO [facility] Last Admin: 08/06/17 21:24 Dose: 10 mg Famotidine (Pepcid) 20 mg PO DAILY [facility] Last Admin: 08/07/17 09:08 Dose: 20 mg Folic Acid (Folic Acid) 1 mg PO DAILY [facility] Last Admin: 08/07/17 09:08 Dose: 1 mg Losartan Potassium (Cozaar) 25 mg PO DAILY [facility] Last Admin: 08/07/17 09:08 Dose: 25 mg Memantine (Namenda) 10 mg PO DAILY [facility] Last Admin: 08/07/17 09:08 Dose: 10 mg Rosuvastatin Calcium (Crestor) 2.5 mg PO [facility] Last Admin: 08/06/17 21:24 Dose: 2.5 mg - Labs Labs: 08/06/17 07:41 08/06/17 07:41 PT 11.8 SECONDS (9.7-12.2) 06/21/17 22:04 INR 1.1 06/21/17 22:04 APTT 32 SECONDS (21-34) 06/21/17 22:04 - Constitutional Appears: Non-toxic, No Acute Distress - Head Exam Head Exam: ATRAUMATIC, NORMAL INSPECTION, NORMOCEPHALIC - Eye Exam Eye Exam: EOMI, Normal appearance - ENT Exam ENT Exam: Mucous Membranes Moist - Neck Exam Neck Exam: Full ROM - Respiratory Exam Respiratory Exam: Clear to Ausculation Bilateral, NORMAL BREATHING PATTERN. absent: Rales, Rhonchi, Wheezes - Cardiovascular Exam Cardiovascular Exam: REGULAR RHYTHM, +S1, +S2 - GI/Abdominal Exam GI & Abdominal Exam: Soft, Normal Bowel Sounds. absent: Guarding, Rigid, Tenderness - Rectal Exam Rectal Exam: Deferred - Extremities Exam Extremities Exam: Full ROM, Normal Inspection. absent: Calf Tenderness - Neurological Exam Neurological Exam: Alert, Awake, CN II-XII Intact, Normal Gait - Psychiatric Exam Psychiatric exam: Normal Affect, Normal Mood - Skin Skin Exam: Dry, Normal Color, Warm Assessment and Plan - Assessment and Plan (Free Text) Assessment: 1.) Family History of Alzheimer's Disease Early Onset of Dementia * Family Hx: patient had Alzheimer's Disease at age 71 * Patient was told by a neurologist he has early signs of dementia * Psych consult Dr. Valente --> help appreciated * CT scan of the head is negative * X-ray shows a apical granuloma * Neurology Dr. Manzanares--> help appreciated * Completed EEG 07/07/17 * Discussed patient may complete further workup as outpatient. * Negative heavy metal screen * Discussed with Dr. Manzanares 07/07 * Repeat MRI 07/09: no acute intracranial abnormality. Mild chronic microangiopathic changes and mild age-related global parenchymal volume loss. * No new recommendations from Neurology at this time * Elopement risk, will continue 1:1 observation Please note workup is in prior admission when patient eloped on discharge. * CT scan of the chest is negative and unremarkable * UDS is negative * UA: urine only + for ketones * Brain MRI: Limited motion degraded study. No evidence of acute hemorrhage or infarct. Minor chronic white matter ischemic changes are felt be present. Moderate generalized volume loss. * RPR: nonreactive * HIV: negative * TSH: within normal and repeat within normal * Folate: normal and repeat within normal * B12: normal and repeat within normal * Recommended to patient to follow-up with neurology outpatient and to establish care in the [facility] upon discharge Medications: * Aricept 10mg PO qHS * Namenda 10mg daily * Folic acid 1mg PO daily * Crestor 2.5mg PO HS 2.) Anemia-->Resolved * Within normal * Monitor 3.) Hypokalemia-->resolved * Resolved * Will monitor labs qweekly 4) Abnormal Chest xray-->resolved * CT Chest: no acute pathology noted; official report in the computer 5.) Impaired glucose tolerance * Hgba1c: 5.7 * Will need check in one year for a1c to prevent over diabetes 6.) HTN-->Chronic * Continue home Cozaar 25mg PO daily * Aspirin 81mg PO daily 7.) Prophylaxis * Pepcid 20mg PO daily * SCDs, patient is ambulating, heparin discontinued * Court Appointed temporary guardian. Mr. Dangelo Thomas [phone]--> agreement to send patient to assisted living Disposition: Patient has temporary guardianship, currently awaiting placement at assisted living facility in [place] (per discussion with director of casework services). Patient has a court date for 08/09/17. <Tamera Sawyer V - Last Filed: 08/09/17 23:06> Objective - Vital Signs/Intake and Output Vital Signs (last 24 hours): Temp Pulse Resp BP Pulse Ox 97.4 F L 68 20 98/56 L 94 L 08/09/17 15:00 08/09/17 15:00 08/09/17 15:00 08/09/17 15:00 08/09/17 15:00 Intake and Output: 08/09/17 08/10/17 18:59 06:59 Intake Total 500 Balance 500 - Medications Medications: Current Medications Aspirin (Ecotrin) 81 mg PO DAILY [facility] Last Admin: 08/09/17 09:56 Dose: 81 mg Donepezil HCl (Aricept) 10 mg PO [facility] Last Admin: 08/09/17 21:44 Dose: 10 mg Famotidine (Pepcid) 20 mg PO DAILY [facility] Last Admin: 08/09/17 09:56 Dose: 20 mg Folic Acid (Folic Acid) 1 mg PO DAILY [facility] Last Admin: 08/09/17 09:56 Dose: 1 mg Losartan Potassium (Cozaar) 25 mg PO DAILY [facility] Last Admin: 08/09/17 09:56 Dose: 25 mg Memantine (Namenda) 10 mg PO DAILY [facility] Last Admin: 08/09/17 09:56 Dose: 10 mg Rosuvastatin Calcium (Crestor) 2.5 mg PO [facility] Last Admin: 08/09/17 21:44 Dose: 2.5 mg - Labs Labs: 08/07/17 14:26 08/07/17 14:26 PT 11.8 SECONDS (9.7-12.2) 06/21/17 22:04 INR 1.1 06/21/17 22:04 APTT 32 SECONDS (21-34) 06/21/17 22:04 Attending/Attestation - Attestation I have personally seen and examined this patient.: Yes I have fully participated in the care of the patient.: Yes I have reviewed all pertinent clinical information, including history, physical exam and plan: Yes Notes (Text): This is a late computer entry for 08/07/17. Patient seen, examined, case discussed with biomedical equipment support specialist. Patient denies acute complaints. Patient able to say it is July 2017 but mixes up the date. Patient still recognizes that [place] [place] and is quite frustrated by it. Patient is aware of court date this upcoming week . Continue present management. Awaiting court date. Assessment/Plan: 1.) Family History of Alzheimer's Disease Early Onset of Dementia * Family Hx: patient had Alzheimer's Disease at age 71 * Patient was told by a neurologist he has early signs of dementia * Psych consult Dr. Valente --> help appreciated * CT scan of the head is negative * X-ray shows a apical granuloma * Neurology Dr. Manzanares-->help appreciated * Completed EEG 07/07/17 * Discussed patient may complete further workup as outpatient. * negative heavy metal screen * Discussed with Dr. manzanares 07/07 * Repeat MRI 07/09: no acute intracranial abnormality. Mild chronic microangiopathic changes and mild age-related global parenchymal volume loss. Please note workup is in prior admission when patient eloped on discharge. * CT scan of the chest is negative and unremarkable * UDS is negative * UA: urine only + for ketones * Brain MRI: Limited motion degraded study. No evidence of acute hemorrhage or infarct. Minor chronic white matter ischemic changes are felt be present. Moderate generalized volume loss. * RPR: nonreactive * HIV: negative * TSH: within normal and repeat within normal * Folate: normal and repeat within normal * B12: normal and repeat within normal * Recommended to patient to follow-up with neurology outpatient and to establish care in the [facility] upon discharge Medications: * Aricept 10mg PO qHS * Namenda 10mg bid * Folic acid 1mg PO daily * Crestor 2.5mg PO HS 2.) Anemia-->Resolved * Within normal * Monitor 3.) Hypokalemia-->resolved * resolved 4) Abnormal Chest xray-->resolved * CT Chest: no acute pathology noted; official report in the computer 5.) Impaired glucose tolerance * Hgba1c: 5.7 * Will need check in one year for a1c to prevent over diabetes 6.) HTN-->Chronic * continue home Cozaar 25mg PO daily * Aspirin 81mg PO daily * 2 gram diet 7.) Prophylaxis * Pepcid 20mg PO BID * Patient is ambulatory. * SCDs * Court Appointed temporary guardian. Mr. Dangelo Thomas [phone]--> agreement to send patient to assisted living. however, this facility must [place] in [place] since [place]. Disposition: pending approval to assisted living facility and has of temporary guardianship. patient has pending court date 08/09/17.
[2017-08-07 14:32] LABS: HEMOGLOBIN 14.3 g/dL (12.0-18.0); MEAN CELL VOLUME 93.5 fL (80.0-94.0); MEAN CORPUSCULAR HEMOGLOBIN 31.8 pg (27.0-31.0); MEAN PLATELET VOLUME 7.2 fL (7.2-11.7); RBC 4.5 Mil/uL (4.40-5.90); WHITE BLOOD COUNT 8.2 K/uL (4.8-10.8)
[2017-08-07 14:55] LABS: ALB/GLOB RATIO 1.4 (1.0-2.1); ALBUMIN 4.1 g/dL (3.5-5.0); ALT/SGPT 37 U/L (21-72); AST/SGOT 22 U/L (17-59); BLOOD UREA NITROGEN 18 mg/dL (9-20); CALCIUM 8.3 mg/dl (8.6-10.4); GFR AFRICAN-AMERICAN > 60; GFR NON-AFRICAN AMERICAN > 60
[2017-08-07] MEDS: Rosuvastatin Calcium 2.5 mg Tab PO SCH (21:14)
--- NOTE | 2017-08-08 07:50 | CP.PCM.PN ---
<Tabitha Charles - Last Filed: 08/08/17 16:12> Subjective - Date & Time of Evaluation Date of Evaluation: 08/08/17 Time of Evaluation: 07:50 - Subjective Subjective: Medicine Progress Note: Hospitalist Service Patient seen and examined at bedside. Per nursing no acute events overnight. Patient is doing well, offers no complaints at this time. Denies headaches, dizziness, cp, palpitations, sob, abdominal pain, urinary symptoms, changes in bowel habits. Objective - Vital Signs/Intake and Output Vital Signs (last 24 hours): Temp Pulse Resp BP Pulse Ox 98.1 F 78 20 130/87 98 08/08/17 07:43 08/08/17 07:43 08/08/17 07:43 08/08/17 07:43 08/08/17 07:43 Intake and Output: 08/08/17 08/08/17 06:59 18:59 Intake Total 400 Balance 400 - Medications Medications: Current Medications Aspirin (Ecotrin) 81 mg PO DAILY [facility] Last Admin: 08/07/17 09:08 Dose: 81 mg Donepezil HCl (Aricept) 10 mg PO [facility] Last Admin: 08/07/17 21:14 Dose: 10 mg Famotidine (Pepcid) 20 mg PO DAILY [facility] Last Admin: 08/07/17 09:08 Dose: 20 mg Folic Acid (Folic Acid) 1 mg PO DAILY [facility] Last Admin: 08/07/17 09:08 Dose: 1 mg Losartan Potassium (Cozaar) 25 mg PO DAILY [facility] Last Admin: 08/07/17 09:08 Dose: 25 mg Memantine (Namenda) 10 mg PO DAILY [facility] Last Admin: 08/07/17 09:08 Dose: 10 mg Rosuvastatin Calcium (Crestor) 2.5 mg PO [facility] Last Admin: 08/07/17 21:14 Dose: 2.5 mg - Labs Labs: 08/07/17 14:26 08/07/17 14:26 PT 11.8 SECONDS (9.7-12.2) 06/21/17 22:04 INR 1.1 06/21/17 22:04 APTT 32 SECONDS (21-34) 06/21/17 22:04 - Constitutional Appears: Non-toxic, No Acute Distress - Head Exam Head Exam: ATRAUMATIC, NORMAL INSPECTION, NORMOCEPHALIC - Eye Exam Eye Exam: EOMI, Normal appearance - ENT Exam ENT Exam: Mucous Membranes Moist - Neck Exam Neck Exam: Full ROM - Respiratory Exam Respiratory Exam: Clear to Ausculation Bilateral, NORMAL BREATHING PATTERN. absent: Rales, Rhonchi, Wheezes - Cardiovascular Exam Cardiovascular Exam: REGULAR RHYTHM, +S1, +S2 - GI/Abdominal Exam GI & Abdominal Exam: Soft, Normal Bowel Sounds. absent: Firm, Guarding, Rigid, Tenderness - Extremities Exam Extremities Exam: Normal Inspection - Neurological Exam Neurological Exam: Alert, Awake, Normal Gait - Psychiatric Exam Psychiatric exam: Normal Affect, Normal Mood - Skin Skin Exam: Dry, Normal Color, Warm Assessment and Plan - Assessment and Plan (Free Text) Assessment: 1.) Family History of Alzheimer's Disease Early Onset of Dementia * Family Hx: patient had Alzheimer's Disease at age 71 * Patient was told by a neurologist he has early signs of dementia * Psych consult Dr. Valente --> help appreciated * CT scan of the head is negative * X-ray shows a apical granuloma * Neurology Dr. Manzanares--> help appreciated * Completed EEG 07/07/17 * Discussed patient may complete further workup as outpatient. * Negative heavy metal screen * Discussed with Dr. Manzanares 07/07 * Repeat MRI 07/09: no acute intracranial abnormality. Mild chronic microangiopathic changes and mild age-related global parenchymal volume loss. * No new recommendations from Neurology at this time * Elopement risk, will continue 1:1 observation Please note workup is in prior admission when patient eloped on discharge. * CT scan of the chest is negative and unremarkable * UDS is negative * UA: urine only + for ketones * Brain MRI: Limited motion degraded study. No evidence of acute hemorrhage or infarct. Minor chronic white matter ischemic changes are felt be present. Moderate generalized volume loss. * RPR: nonreactive * HIV: negative * TSH: within normal and repeat within normal * Folate: normal and repeat within normal * B12: normal and repeat within normal * Recommended to patient to follow-up with neurology outpatient and to establish care in the [facility] upon discharge Medications: * Aricept 10mg PO qHS * Namenda 10mg daily * Folic acid 1mg PO daily * Crestor 2.5mg PO HS 2.) Anemia-->Resolved * Within normal * Monitor 3.) Hypokalemia-->resolved * Resolved * Will monitor labs qweekly 4) Abnormal Chest xray-->resolved * CT Chest: no acute pathology noted; official report in the computer 5.) Impaired glucose tolerance * Hgba1c: 5.7 * Will need check in one year for a1c to prevent over diabetes 6.) HTN-->Chronic * Continue home Cozaar 25mg PO daily * Aspirin 81mg PO daily 7.) Prophylaxis * Pepcid 20mg PO daily * SCDs, patient is ambulating, heparin discontinued * Court Appointed temporary guardian. Mr. Dangelo Thomas [phone]--> agreement to send patient to assisted living Disposition: Patient has temporary guardianship, currently awaiting placement at assisted living facility in [place] (per discussion with caser up). Patient has a court date for 08/09/17. <Gary Damon - Last Filed: 08/08/17 19:42> Objective - Vital Signs/Intake and Output Vital Signs (last 24 hours): Temp Pulse Resp BP Pulse Ox 97.8 F 70 20 112/72 95 08/08/17 16:00 08/08/17 16:00 08/08/17 16:00 08/08/17 16:00 08/08/17 16:00 Intake and Output: 08/08/17 08/09/17 18:59 06:59 Intake Total 500 Balance 500 - Medications Medications: Current Medications Aspirin (Ecotrin) 81 mg PO DAILY [facility] Last Admin: 08/08/17 09:22 Dose: 81 mg Donepezil HCl (Aricept) 10 mg PO [facility] Last Admin: 08/07/17 21:14 Dose: 10 mg Famotidine (Pepcid) 20 mg PO DAILY [facility] Last Admin: 08/08/17 09:21 Dose: 20 mg Folic Acid (Folic Acid) 1 mg PO DAILY [facility] Last Admin: 08/08/17 09:21 Dose: 1 mg Losartan Potassium (Cozaar) 25 mg PO DAILY [facility] Last Admin: 08/08/17 09:22 Dose: 25 mg Memantine (Namenda) 10 mg PO DAILY [facility] Last Admin: 08/08/17 09:22 Dose: 10 mg Rosuvastatin Calcium (Crestor) 2.5 mg PO [facility] Last Admin: 08/07/17 21:14 Dose: 2.5 mg - Labs Labs: 08/07/17 14:26 08/07/17 14:26 PT 11.8 SECONDS (9.7-12.2) 06/21/17 22:04 INR 1.1 06/21/17 22:04 APTT 32 SECONDS (21-34) 06/21/17 22:04 Attending/Attestation - Attestation I have personally seen and examined this patient.: Yes I have fully participated in the care of the patient.: Yes I have reviewed all pertinent clinical information, including history, physical exam and plan: Yes Notes (Text): 08/08/17 19:41 Hospitalist Progress Note Patient was seen and examined at 6:30 PM 08/08/17 358 A HEENT, Cardio, Resp, GI, Ext, CN exams were unremarkable Assessments: 1). Dimentia: Aricept, Namenda, Folic Acid, Crestor, ASA 2). Anemia: resolved 3). Hypokalemia: resolved 4). Abnormal Chest X Ray (Granuloma?): CT Chest was unremarkable 5). Impaired Fasting Glucose: HgBA1C was 5.7 6). HTN: Cozaar 7). Prophylaxis: Pepcid, SCD, 1:1 observation for elopement risk, patient is walking 10 laps around the medical floor every hour [facility] Protective Services who applied for guardianship is making arrangements for placement. Patient has court date on 08/09/17. Truck Headlight Assembler Lisa and Butcher Rashard are aware. Gary Damon D.O.
--- NOTE | 2017-08-08 12:49 | CP.PCM.PN ---
Subjective - Date & Time of Evaluation Date of Evaluation: 08/08/17 Time of Evaluation: 12:46 - Subjective Subjective: Mr. Nelson was seen and examined at the bedside. He remains alert, oriented and able to verbalize that he has a court date jose g. He denies any headache, dizziness, lightheadedness, numbness, weakness, or blurred vision. He is able to ambulate around his room with steady gait. He remains on 1:1 sitter for patient safety. There was no untoward events overnight. Objective - Vital Signs/Intake and Output Vital Signs (last 24 hours): Temp Pulse Resp BP Pulse Ox 98.1 F 78 20 130/87 98 08/08/17 07:43 08/08/17 07:43 08/08/17 07:43 08/08/17 07:43 08/08/17 07:43 Intake and Output: 08/08/17 08/08/17 06:59 18:59 Intake Total 400 Balance 400 - Medications Medications: Current Medications Aspirin (Ecotrin) 81 mg PO DAILY [facility] Last Admin: 08/08/17 09:22 Dose: 81 mg Donepezil HCl (Aricept) 10 mg PO [facility] Last Admin: 08/07/17 21:14 Dose: 10 mg Famotidine (Pepcid) 20 mg PO DAILY [facility] Last Admin: 08/08/17 09:21 Dose: 20 mg Folic Acid (Folic Acid) 1 mg PO DAILY [facility] Last Admin: 08/08/17 09:21 Dose: 1 mg Losartan Potassium (Cozaar) 25 mg PO DAILY [facility] Last Admin: 08/08/17 09:22 Dose: 25 mg Memantine (Namenda) 10 mg PO DAILY [facility] Last Admin: 08/08/17 09:22 Dose: 10 mg Rosuvastatin Calcium (Crestor) 2.5 mg PO [facility] Last Admin: 08/07/17 21:14 Dose: 2.5 mg - Labs Labs: 08/07/17 14:26 08/07/17 14:26 PT 11.8 SECONDS (9.7-12.2) 06/21/17 22:04 INR 1.1 06/21/17 22:04 APTT 32 SECONDS (21-34) 06/21/17 22:04 - Constitutional Appears: No Acute Distress - Head Exam Head Exam: NORMAL INSPECTION - Neurological Exam Neurological Exam: Alert, Awake Neuro motor strength exam: Left Upper Extremity: 5, Right Upper Extremity: 5, Left Lower Extremity: 5, Right Lower Extremity: 5 Additional comments: Neurological unchanged from previous examination. Assessment and Plan (1) Dementia Assessment & Plan: Case discussed with Dr. Manzanares, continue all current medical regimen. There is no new recommendations from neurology. Status: Chronic
[2017-08-08] MEDS: Rosuvastatin Calcium 2.5 mg Tab PO SCH (21:27)
--- NOTE | 2017-08-09 13:04 | CP.PCM.PN ---
Subjective - Date & Time of Evaluation Date of Evaluation: 08/09/17 Time of Evaluation: 13:01 - Subjective Subjective: Mr. Nelson was seen and examined at the bedside. He remains alert, oriented to place and person. He denies any headache,dizziness, lightheadedness, blurred vision, or numbness. He states of patiently waiting for his day today. He was able to follow simple commands. He remains on 1:1 sitter for patient safety. There was no untoward events overnight. Objective - Vital Signs/Intake and Output Vital Signs (last 24 hours): Temp Pulse Resp BP Pulse Ox 97.1 F L 71 20 118/74 98 08/09/17 08:36 08/09/17 08:36 08/09/17 08:36 08/09/17 08:36 08/09/17 08:36 Intake and Output: 08/09/17 08/09/17 06:59 18:59 Intake Total 450 Output Total 700 Balance -250 - Medications Medications: Current Medications Aspirin (Ecotrin) 81 mg PO DAILY [facility] Last Admin: 08/09/17 09:56 Dose: 81 mg Donepezil HCl (Aricept) 10 mg PO HS [facility] Last Admin: 08/08/17 21:27 Dose: 10 mg Famotidine (Pepcid) 20 mg PO DAILY [facility] Last Admin: 08/09/17 09:56 Dose: 20 mg Folic Acid (Folic Acid) 1 mg PO DAILY [facility] Last Admin: 08/09/17 09:56 Dose: 1 mg Losartan Potassium (Cozaar) 25 mg PO DAILY [facility] Last Admin: 08/09/17 09:56 Dose: 25 mg Memantine (Namenda) 10 mg PO DAILY [facility] Last Admin: 08/09/17 09:56 Dose: 10 mg Rosuvastatin Calcium (Crestor) 2.5 mg PO HS [facility] Last Admin: 08/08/17 21:27 Dose: 2.5 mg - Labs Labs: 08/07/17 14:26 08/07/17 14:26 PT 11.8 SECONDS (9.7-12.2) 06/21/17 22:04 INR 1.1 06/21/17 22:04 APTT 32 SECONDS (21-34) 06/21/17 22:04 - Constitutional Appears: No Acute Distress - Head Exam Head Exam: NORMAL INSPECTION - Neurological Exam Neurological Exam: Alert, Awake Neuro motor strength exam: Left Upper Extremity: 5, Right Upper Extremity: 5, Left Lower Extremity: 5, Right Lower Extremity: 5 Additional comments: Neurological unchanged from previous examination. Assessment and Plan (1) Dementia Assessment & Plan: Case discussed with Dr. Manzanares, continue all current medical regimen. There is no new recommendation from neurology. Status: Chronic
--- NOTE | 2017-08-09 15:58 | CP.PCM.PN ---
<Tabitha Charles - Last Filed: 08/09/17 15:59> Subjective - Date & Time of Evaluation Date of Evaluation: 08/09/17 Time of Evaluation: 15:55 - Subjective Subjective: Medicine Progress Note: Hospitalist Service Patient seen and examined at bedside. Per nursing no acute events overnight. Patient is doing well, offers no complaints at this time. Denies headaches, dizziness, cp, palpitations, sob, abdominal pain, urinary symptoms, changes in bowel habits. Patient is aware there is a court date today. Objective - Vital Signs/Intake and Output Vital Signs (last 24 hours): Temp Pulse Resp BP Pulse Ox 97.4 F L 68 20 98/56 L 94 L 08/09/17 15:00 08/09/17 15:00 08/09/17 15:00 08/09/17 15:00 08/09/17 15:00 Intake and Output: 08/09/17 08/09/17 06:59 18:59 Intake Total 450 500 Output Total 700 Balance -250 500 - Medications Medications: Current Medications Aspirin (Ecotrin) 81 mg PO DAILY [facility] Last Admin: 08/09/17 09:56 Dose: 81 mg Donepezil HCl (Aricept) 10 mg PO HS [facility] Last Admin: 08/08/17 21:27 Dose: 10 mg Famotidine (Pepcid) 20 mg PO DAILY [facility] Last Admin: 08/09/17 09:56 Dose: 20 mg Folic Acid (Folic Acid) 1 mg PO DAILY [facility] Last Admin: 08/09/17 09:56 Dose: 1 mg Losartan Potassium (Cozaar) 25 mg PO DAILY [facility] Last Admin: 08/09/17 09:56 Dose: 25 mg Memantine (Namenda) 10 mg PO DAILY [facility] Last Admin: 08/09/17 09:56 Dose: 10 mg Rosuvastatin Calcium (Crestor) 2.5 mg PO HS [facility] Last Admin: 08/08/17 21:27 Dose: 2.5 mg - Labs Labs: 08/07/17 14:26 08/07/17 14:26 PT 11.8 SECONDS (9.7-12.2) 06/21/17 22:04 INR 1.1 06/21/17 22:04 APTT 32 SECONDS (21-34) 06/21/17 22:04 - Constitutional Appears: Well, Non-toxic, No Acute Distress - Head Exam Head Exam: ATRAUMATIC, NORMAL INSPECTION, NORMOCEPHALIC - Eye Exam Eye Exam: EOMI, Normal appearance - ENT Exam ENT Exam: Mucous Membranes Moist - Neck Exam Neck Exam: Full ROM - Respiratory Exam Respiratory Exam: Clear to Ausculation Bilateral, NORMAL BREATHING PATTERN. absent: Rales, Rhonchi, Wheezes - Cardiovascular Exam Cardiovascular Exam: REGULAR RHYTHM, +S1, +S2 - GI/Abdominal Exam GI & Abdominal Exam: Soft, Tenderness, Normal Bowel Sounds. absent: Firm, Guarding, Rigid - Extremities Exam Extremities Exam: Normal Capillary Refill, Normal Inspection. absent: Calf Tenderness - Back Exam Back Exam: NORMAL INSPECTION - Neurological Exam Neurological Exam: Alert, Awake, CN II-XII Intact, Normal Gait - Psychiatric Exam Psychiatric exam: Normal Affect, Normal Mood - Skin Skin Exam: Dry, Normal Color, Warm Assessment and Plan - Assessment and Plan (Free Text) Assessment: 1.) Family History of Alzheimer's Disease Early Onset of Dementia * Family Hx: patient had Alzheimer's Disease at age 71 * Patient was told by a neurologist he has early signs of dementia * Psych consult Dr. Valente --> help appreciated * CT scan of the head is negative * X-ray shows a apical granuloma * Neurology Dr. Manzanares--> help appreciated * Completed EEG 07/07/17 * Discussed patient may complete further workup as outpatient. * Negative heavy metal screen * Discussed with Dr. Manzanares 07/07 * Repeat MRI 07/09: no acute intracranial abnormality. Mild chronic microangiopathic changes and mild age-related global parenchymal volume loss. * No new recommendations from Neurology at this time * Elopement risk, will continue 1:1 observation Please note workup is in prior admission when patient eloped on discharge. * CT scan of the chest is negative and unremarkable * UDS is negative * UA: urine only + for ketones * Brain MRI: Limited motion degraded study. No evidence of acute hemorrhage or infarct. Minor chronic white matter ischemic changes are felt be present. Moderate generalized volume loss. * RPR: nonreactive * HIV: negative * TSH: within normal and repeat within normal * Folate: normal and repeat within normal * B12: normal and repeat within normal * Recommended to patient to follow-up with neurology outpatient and to establish care in the [facility] upon discharge Medications: * Aricept 10mg PO qHS * Namenda 10mg daily * Folic acid 1mg PO daily * Crestor 2.5mg PO HS 2.) Anemia-->Resolved * Within normal * Monitor 3.) Hypokalemia-->resolved * Resolved * Will monitor labs qweekly 4) Abnormal Chest xray-->resolved * CT Chest: no acute pathology noted; official report in the computer 5.) Impaired glucose tolerance * Hgba1c: 5.7 * Will need check in one year for a1c to prevent over diabetes 6.) HTN-->Chronic * Continue home Cozaar 25mg PO daily * Aspirin 81mg PO daily 7.) Prophylaxis * Pepcid 20mg PO daily * SCDs, patient is ambulating, heparin discontinued * Court Appointed temporary guardian. Mr. Dangelo Thomas [phone]--> agreement to send patient to assisted living Disposition: Patient has temporary guardianship, currently awaiting placement at assisted living facility in [place] (per discussion with bilingual case manager). Patient has a court date for 08/09/17. <Gary Damon - Last Filed: 08/09/17 19:41> Objective - Vital Signs/Intake and Output Vital Signs (last 24 hours): Temp Pulse Resp BP Pulse Ox 97.4 F L 68 20 98/56 L 94 L 08/09/17 15:00 08/09/17 15:00 08/09/17 15:00 08/09/17 15:00 08/09/17 15:00 Intake and Output: 08/09/17 08/10/17 18:59 06:59 Intake Total 500 Balance 500 - Medications Medications: Current Medications Aspirin (Ecotrin) 81 mg PO DAILY [facility] Last Admin: 08/09/17 09:56 Dose: 81 mg Donepezil HCl (Aricept) 10 mg PO HS [facility] Last Admin: 08/08/17 21:27 Dose: 10 mg Famotidine (Pepcid) 20 mg PO DAILY [facility] Last Admin: 08/09/17 09:56 Dose: 20 mg Folic Acid (Folic Acid) 1 mg PO DAILY [facility] Last Admin: 08/09/17 09:56 Dose: 1 mg Losartan Potassium (Cozaar) 25 mg PO DAILY [facility] Last Admin: 08/09/17 09:56 Dose: 25 mg Memantine (Namenda) 10 mg PO DAILY [facility] Last Admin: 08/09/17 09:56 Dose: 10 mg Rosuvastatin Calcium (Crestor) 2.5 mg PO HS [facility] Last Admin: 08/08/17 21:27 Dose: 2.5 mg - Labs Labs: 08/07/17 14:26 08/07/17 14:26 PT 11.8 SECONDS (9.7-12.2) 06/21/17 22:04 INR 1.1 06/21/17 22:04 APTT 32 SECONDS (21-34) 06/21/17 22:04 Attending/Attestation - Attestation I have personally seen and examined this patient.: Yes I have fully participated in the care of the patient.: Yes I have reviewed all pertinent clinical information, including history, physical exam and plan: Yes Notes (Text): 08/09/17 19:41 Hospitalist Progress Note Patient was seen and examined at 4 PM 08/09/17 358 A HEENT, Cardio, Resp, GI, Ext, CN exams were unremarkable Assessments: 1). Dimentia: Aricept, Namenda, Folic Acid, Crestor, ASA 2). Anemia: resolved 3). Hypokalemia: resolved 4). Abnormal Chest X Ray (Granuloma?): CT Chest was unremarkable 5). Impaired Fasting Glucose: HgBA1C was 5.7 6). HTN: Cozaar 7). Prophylaxis: Pepcid, SCD, 1:1 observation for elopement risk, patient is walking 10 laps around the medical floor every hour [facility] Adult Protective Services who applied for guardianship is making arrangements for placement. Patient has court date on 08/09/17. Animal Biologist Lisa and Insurance Agent Rashard are aware. Gary Damon D.O.
[2017-08-09] MEDS: Rosuvastatin Calcium 2.5 mg Tab PO SCH (21:44)
--- NOTE | 2017-08-10 09:51 | CP.PCM.PN ---
Subjective - Date & Time of Evaluation Date of Evaluation: 08/10/17 Time of Evaluation: 09:50 - Subjective Subjective: Medicine Progress Note: Hospitalist Service Patient seen and examined at bedside. Per nursing no acute events overnight. Patient is doing well, offers no complaints at this time. Denies headaches, dizziness, cp, palpitations, sob, abdominal pain, urinary symptoms, changes in bowel habits. Objective - Vital Signs/Intake and Output Vital Signs (last 24 hours): Temp Pulse Resp BP Pulse Ox 98.1 F 75 20 118/80 98 08/10/17 08:16 08/10/17 08:16 08/10/17 08:16 08/10/17 08:16 08/10/17 08:16 Intake and Output: 08/10/17 08/10/17 06:59 18:59 Intake Total 400 Balance 400 - Medications Medications: Current Medications Aspirin (Ecotrin) 81 mg PO DAILY [facility] Last Admin: 08/10/17 09:38 Dose: 81 mg Donepezil HCl (Aricept) 10 mg PO [facility] Last Admin: 08/09/17 21:44 Dose: 10 mg Famotidine (Pepcid) 20 mg PO DAILY [facility] Last Admin: 08/10/17 09:38 Dose: 20 mg Folic Acid (Folic Acid) 1 mg PO DAILY [facility] Last Admin: 08/10/17 09:38 Dose: 1 mg Losartan Potassium (Cozaar) 25 mg PO DAILY [facility] Last Admin: 08/10/17 09:38 Dose: 25 mg Memantine (Namenda) 10 mg PO DAILY [facility] Last Admin: 08/10/17 09:38 Dose: 10 mg Rosuvastatin Calcium (Crestor) 2.5 mg PO [facility] Last Admin: 08/09/17 21:44 Dose: 2.5 mg - Labs Labs: 08/07/17 14:26 08/07/17 14:26 PT 11.8 SECONDS (9.7-12.2) 06/21/17 22:04 INR 1.1 06/21/17 22:04 APTT 32 SECONDS (21-34) 06/21/17 22:04 - Constitutional Appears: Well, No Acute Distress - Head Exam Head Exam: ATRAUMATIC, NORMAL INSPECTION, NORMOCEPHALIC - Eye Exam Eye Exam: EOMI, Normal appearance - ENT Exam ENT Exam: Mucous Membranes Moist - Neck Exam Neck Exam: Full ROM - Respiratory Exam Respiratory Exam: Clear to Ausculation Bilateral, NORMAL BREATHING PATTERN. absent: Rales, Rhonchi, Wheezes - Cardiovascular Exam Cardiovascular Exam: REGULAR RHYTHM, +S1, +S2 - GI/Abdominal Exam GI & Abdominal Exam: Soft, Normal Bowel Sounds. absent: Guarding, Rigid, Tenderness - Extremities Exam Extremities Exam: Normal Inspection - Back Exam Back Exam: NORMAL INSPECTION - Neurological Exam Neurological Exam: Alert, Awake, CN II-XII Intact, Normal Gait - Psychiatric Exam Psychiatric exam: Normal Affect, Normal Mood - Skin Skin Exam: Dry, Normal Color, Warm Assessment and Plan - Assessment and Plan (Free Text) Assessment: 1.) Family History of Alzheimer's Disease Early Onset of Dementia * Family Hx: patient had Alzheimer's Disease at age 71 * Patient was told by a neurologist he has early signs of dementia * Psych consult Dr. Valente --> help appreciated * CT scan of the head is negative * X-ray shows a apical granuloma * Neurology Dr. Manzanares--> help appreciated * Completed EEG 07/07/17 * Discussed patient may complete further workup as outpatient. * Negative heavy metal screen * Discussed with Dr. Manzanares 07/07 * Repeat MRI 07/09: no acute intracranial abnormality. Mild chronic microangiopathic changes and mild age-related global parenchymal volume loss. * No new recommendations from Neurology at this time * Elopement risk, will continue 1:1 observation Please note workup is in prior admission when patient eloped on discharge. * CT scan of the chest is negative and unremarkable * UDS is negative * UA: urine only + for ketones * Brain MRI: Limited motion degraded study. No evidence of acute hemorrhage or infarct. Minor chronic white matter ischemic changes are felt be present. Moderate generalized volume loss. * RPR: nonreactive * HIV: negative * TSH: within normal and repeat within normal * Folate: normal and repeat within normal * B12: normal and repeat within normal * Recommended to patient to follow-up with neurology outpatient and to establish care in [email or web address] upon discharge Medications: * Aricept 10mg PO qHS * Namenda 10mg daily * Folic acid 1mg PO daily * Crestor 2.5mg PO HS 2.) Anemia-->Resolved * Within normal * Monitor 3.) Hypokalemia-->resolved * Resolved * Will monitor labs qweekly 4) Abnormal Chest xray-->resolved * CT Chest: no acute pathology noted; official report in the computer 5.) Impaired glucose tolerance * Hgba1c: 5.7 * Will need check in one year for a1c to prevent over diabetes 6.) HTN-->Chronic * Continue home Cozaar 25mg PO daily * Aspirin 81mg PO daily 7.) Prophylaxis * Pepcid 20mg PO daily * SCDs, patient is ambulating, heparin discontinued * Court Appointed temporary guardian. Mr. Dangelo Thomas [phone]--> agreement to send patient to assisted living Disposition: Patient has temporary guardianship, currently awaiting placement at assisted living facility in [place] (per discussion with bilingual case manager). Patient had a court date for 08/09/17. Awaiting updates
[2017-08-10] MEDS: Rosuvastatin Calcium 2.5 mg Tab PO SCH (22:08)
--- NOTE | 2017-08-11 05:54 | CP.PCM.PN ---
<Chencho Amaya - Last Filed: 08/11/17 05:52> Subjective - Date & Time of Evaluation Date of Evaluation: 08/11/17 Time of Evaluation: 05:52 - Subjective Subjective: Patient seen and examined. No overnight evets. Patient is doing well, offers no complaints at this time. Denies headaches, dizziness, cp, palpitations, sob, abdominal pain, urinary symptoms, changes in bowel habits. Objective - Vital Signs/Intake and Output Vital Signs (last 24 hours): Temp Pulse Resp BP Pulse Ox 98.2 F 79 20 115/78 97 08/10/17 23:53 08/10/17 23:53 08/10/17 23:53 08/10/17 23:53 08/10/17 23:53 Intake and Output: 08/10/17 08/11/17 18:59 06:59 Intake Total 500 Balance 500 - Medications Medications: Current Medications Aspirin (Ecotrin) 81 mg PO DAILY [facility] Last Admin: 08/10/17 09:38 Dose: 81 mg Donepezil HCl (Aricept) 10 mg PO [facility] Last Admin: 08/10/17 22:08 Dose: 10 mg Famotidine (Pepcid) 20 mg PO DAILY [facility] Last Admin: 08/10/17 09:38 Dose: 20 mg Folic Acid (Folic Acid) 1 mg PO DAILY [facility] Last Admin: 08/10/17 09:38 Dose: 1 mg Losartan Potassium (Cozaar) 25 mg PO DAILY [facility] Last Admin: 08/10/17 09:38 Dose: 25 mg Memantine (Namenda) 10 mg PO DAILY [facility] Last Admin: 08/10/17 09:38 Dose: 10 mg Rosuvastatin Calcium (Crestor) 2.5 mg PO [facility] Last Admin: 08/10/17 22:08 Dose: 2.5 mg - Labs Labs: 08/07/17 14:26 08/07/17 14:26 PT 11.8 SECONDS (9.7-12.2) 06/21/17 22:04 INR 1.1 06/21/17 22:04 APTT 32 SECONDS (21-34) 06/21/17 22:04 - Additional Findings Additional findings: - Constitutional Appears: Well, No Acute Distress - Head Exam Head Exam: ATRAUMATIC, NORMAL INSPECTION, NORMOCEPHALIC - Eye Exam Eye Exam: EOMI, Normal appearance - ENT Exam ENT Exam: Mucous Membranes Moist - Neck Exam Neck Exam: Full ROM - Respiratory Exam Respiratory Exam: Clear to Ausculation Bilateral, NORMAL BREATHING PATTERN. absent: Rales, Rhonchi, Wheezes - Cardiovascular Exam Cardiovascular Exam: REGULAR RHYTHM, +S1, +S2 - GI/Abdominal Exam GI & Abdominal Exam: Soft, Normal Bowel Sounds. absent: Guarding, Rigid, Tenderness - Extremities Exam Extremities Exam: Normal Inspection - Back Exam Back Exam: NORMAL INSPECTION - Neurological Exam Neurological Exam: Alert, Awake, CN II-XII Intact, Normal Gait - Psychiatric Exam Psychiatric exam: Normal Affect, Normal Mood - Skin Skin Exam: Dry, Normal Color, Warm Assessment and Plan - Assessment and Plan (Free Text) Assessment: 1.) Family History of Alzheimer's Disease Early Onset of Dementia * Family Hx: patient had Alzheimer's Disease at age 71 * Patient was told by a neurologist he has early signs of dementia * Psych consult Dr. Valente --> help appreciated * CT scan of the head is negative * X-ray shows a apical granuloma * Neurology Dr. Manzanares--> help appreciated * Completed EEG 07/07/17 * Discussed patient may complete further workup as outpatient. * Negative heavy metal screen * Discussed with Dr. Manzanares 07/07 * Repeat MRI 07/09: no acute intracranial abnormality. Mild chronic microangiopathic changes and mild age-related global parenchymal volume loss. * No new recommendations from Neurology at this time * Elopement risk, will continue 1:1 observation Please note workup is in prior admission when patient eloped on discharge. * CT scan of the chest is negative and unremarkable * UDS is negative * UA: urine only + for ketones * Brain MRI: Limited motion degraded study. No evidence of acute hemorrhage or infarct. Minor chronic white matter ischemic changes are felt be present. Moderate generalized volume loss. * RPR: nonreactive * HIV: negative * TSH: within normal and repeat within normal * Folate: normal and repeat within normal * B12: normal and repeat within normal * Recommended to patient to follow-up with neurology outpatient and to establish care in the [facility] upon discharge Medications: * Aricept 10mg PO qHS * Namenda 10mg daily * Folic acid 1mg PO daily * Crestor 2.5mg PO HS 2.) Anemia-->Resolved * Within normal * Monitor 3.) Hypokalemia-->resolved * Resolved * Will monitor labs qweekly 4) Abnormal Chest xray-->resolved * CT Chest: no acute pathology noted; official report in the computer 5.) Impaired glucose tolerance * Hgba1c: 5.7 * Will need check in one year for a1c to prevent over diabetes 6.) HTN-->Chronic * Continue home Cozaar 25mg PO daily * Aspirin 81mg PO daily 7.) Prophylaxis * Pepcid 20mg PO daily * SCDs, patient is ambulating, heparin discontinued * Court Appointed temporary guardian. Mr. Dangelo Thomas [phone]--> agreement to send patient to assisted living Disposition: Patient has temporary guardianship, currently awaiting placement at assisted living facility in [place] (per discussion with upper caser). Patient had a court date for 08/09/17. Awaiting updates <Gary Damon - Last Filed: 08/11/17 18:05> Objective - Vital Signs/Intake and Output Vital Signs (last 24 hours): Temp Pulse Resp BP Pulse Ox 98.3 F 91 H 97 H 115/74 96 08/11/17 15:00 08/11/17 15:00 08/11/17 15:00 08/11/17 15:00 08/11/17 08:22 Intake and Output: 08/11/17 08/11/17 06:59 18:59 Intake Total 300 Balance 300 - Medications Medications: Current Medications Aspirin (Ecotrin) 81 mg PO DAILY [facility] Last Admin: 08/11/17 10:38 Dose: 81 mg Donepezil HCl (Aricept) 10 mg PO [facility] Last Admin: 08/10/17 22:08 Dose: 10 mg Famotidine (Pepcid) 20 mg PO DAILY [facility] Last Admin: 08/11/17 10:38 Dose: 20 mg Folic Acid (Folic Acid) 1 mg PO DAILY [facility] Last Admin: 08/11/17 10:38 Dose: 1 mg Losartan Potassium (Cozaar) 25 mg PO DAILY [facility] Last Admin: 08/11/17 10:38 Dose: 25 mg Memantine (Namenda) 10 mg PO DAILY [facility] Last Admin: 08/11/17 10:38 Dose: 10 mg Rosuvastatin Calcium (Crestor) 2.5 mg PO [facility] Last Admin: 08/10/17 22:08 Dose: 2.5 mg - Labs Labs: 08/07/17 14:26 08/07/17 14:26 PT 11.8 SECONDS (9.7-12.2) 06/21/17 22:04 INR 1.1 06/21/17 22:04 APTT 32 SECONDS (21-34) 06/21/17 22:04 Attending/Attestation - Attestation I have personally seen and examined this patient.: Yes I have fully participated in the care of the patient.: Yes I have reviewed all pertinent clinical information, including history, physical exam and plan: Yes Notes (Text): 08/11/17 17:57 Hospitalist Progress Note Patient was seen and examined at 12: 30 PM 08/11/17 358 A HEENT, Cardio, Resp, GI, Ext, CN exams were unremarkable Assessments: 1). Dimentia: Aricept, Namenda, Folic Acid, Crestor, ASA 2). Anemia: resolved 3). Hypokalemia: resolved 4). Abnormal Chest X Ray (Granuloma?): CT Chest was unremarkable 5). Impaired Fasting Glucose: HgBA1C was 5.7 6). HTN: Cozaar 7). Prophylaxis: Pepcid, SCD, patient is walking 10 laps around the medical floor every hour [facility] Adult Protective Services who applied for guardianship is making arrangements for placement. Patient had court date on 08/09/17. Visitor Services Information Assistant Lisa and Sugar Laboratory Assistant Rashard are aware. Gary Damon D.O.
[2017-08-11] MEDS: Rosuvastatin Calcium 2.5 mg Tab PO SCH (21:07)
--- NOTE | 2017-08-12 01:55 | CP.PCM.PN ---
<Chencho Amaya - Last Filed: 08/12/17 01:53> Subjective - Date & Time of Evaluation Date of Evaluation: 08/12/17 Time of Evaluation: 01:53 - Subjective Subjective: Patient seen and examined. No overnight evets. Patient is doing well, offers no complaints at this time. Denies headaches, dizziness, cp, palpitations, sob, abdominal pain, urinary symptoms, changes in bowel habits. Objective - Vital Signs/Intake and Output Vital Signs (last 24 hours): Temp Pulse Resp BP Pulse Ox 97.8 F 75 20 109/71 95 08/11/17 23:00 08/11/17 23:00 08/11/17 23:00 08/11/17 23:00 08/11/17 23:00 Intake and Output: 08/11/17 08/12/17 18:59 06:59 Intake Total 500 Balance 500 - Medications Medications: Current Medications Aspirin (Ecotrin) 81 mg PO DAILY [facility] Last Admin: 08/11/17 10:38 Dose: 81 mg Donepezil HCl (Aricept) 10 mg PO [facility] Last Admin: 08/11/17 21:07 Dose: 10 mg Famotidine (Pepcid) 20 mg PO DAILY [facility] Last Admin: 08/11/17 10:38 Dose: 20 mg Folic Acid (Folic Acid) 1 mg PO DAILY [facility] Last Admin: 08/11/17 10:38 Dose: 1 mg Losartan Potassium (Cozaar) 25 mg PO DAILY [facility] Last Admin: 08/11/17 10:38 Dose: 25 mg Memantine (Namenda) 10 mg PO DAILY [facility] Last Admin: 08/11/17 10:38 Dose: 10 mg Rosuvastatin Calcium (Crestor) 2.5 mg PO [facility] Last Admin: 08/11/17 21:07 Dose: 2.5 mg - Labs Labs: 08/07/17 14:26 08/07/17 14:26 PT 11.8 SECONDS (9.7-12.2) 06/21/17 22:04 INR 1.1 06/21/17 22:04 APTT 32 SECONDS (21-34) 06/21/17 22:04 - Additional Findings Additional findings: - Constitutional Appears: Well, No Acute Distress - Head Exam Head Exam: ATRAUMATIC, NORMAL INSPECTION, NORMOCEPHALIC - Eye Exam Eye Exam: EOMI, Normal appearance - ENT Exam ENT Exam: Mucous Membranes Moist - Neck Exam Neck Exam: Full ROM - Respiratory Exam Respiratory Exam: Clear to Ausculation Bilateral, NORMAL BREATHING PATTERN. absent: Rales, Rhonchi, Wheezes - Cardiovascular Exam Cardiovascular Exam: REGULAR RHYTHM, +S1, +S2 - GI/Abdominal Exam GI & Abdominal Exam: Soft, Normal Bowel Sounds. absent: Guarding, Rigid, Tenderness - Extremities Exam Extremities Exam: Normal Inspection - Back Exam Back Exam: NORMAL INSPECTION - Neurological Exam Neurological Exam: Alert, Awake, CN II-XII Intact, Normal Gait - Psychiatric Exam Psychiatric exam: Normal Affect, Normal Mood - Skin Skin Exam: Dry, Normal Color, Warm Assessment and Plan - Assessment and Plan (Free Text) Assessment: 1.) Family History of Alzheimer's Disease Early Onset of Dementia * Family Hx: patient had Alzheimer's Disease at age 71 * Patient was told by a neurologist he has early signs of dementia * Psych consult Dr. Valente --> help appreciated * CT scan of the head is negative * X-ray shows a apical granuloma * Neurology Dr. Manzanares--> help appreciated * Completed EEG 07/07/17 * Discussed patient may complete further workup as outpatient. * Negative heavy metal screen * Discussed with Dr. Manzanares 07/07 * Repeat MRI 07/09: no acute intracranial abnormality. Mild chronic microangiopathic changes and mild age-related global parenchymal volume loss. * No new recommendations from Neurology at this time * Elopement risk, will continue 1:1 observation Please note workup is in prior admission when patient eloped on discharge. * CT scan of the chest is negative and unremarkable * UDS is negative * UA: urine only + for ketones * Brain MRI: Limited motion degraded study. No evidence of acute hemorrhage or infarct. Minor chronic white matter ischemic changes are felt be present. Moderate generalized volume loss. * RPR: nonreactive * HIV: negative * TSH: within normal and repeat within normal * Folate: normal and repeat within normal * B12: normal and repeat within normal * Recommended to patient to follow-up with neurology outpatient and to establish care in the [facility] upon discharge Medications: * Aricept 10mg PO qHS * Namenda 10mg daily * Folic acid 1mg PO daily * Crestor 2.5mg PO HS 2.) Anemia-->Resolved * Within normal * Monitor 3.) Hypokalemia-->resolved * Resolved * Will monitor labs qweekly 4) Abnormal Chest xray-->resolved * CT Chest: no acute pathology noted; official report in the computer 5.) Impaired glucose tolerance * Hgba1c: 5.7 * Will need check in one year for a1c to prevent over diabetes 6.) HTN-->Chronic * Continue home Cozaar 25mg PO daily * Aspirin 81mg PO daily 7.) Prophylaxis * Pepcid 20mg PO daily * SCDs, patient is ambulating, heparin discontinued * Court Appointed temporary guardian. Mr. Dangelo Thomas [phone]--> agreement to send patient to assisted living Disposition: Patient has temporary guardianship, currently awaiting placement at assisted living facility in [place] (per discussion with skilled nursing case manager). Patient had a court date for 08/09/17. Awaiting updates <Gary Damon - Last Filed: 08/12/17 20:56> Objective - Vital Signs/Intake and Output Vital Signs (last 24 hours): Temp Pulse Resp BP Pulse Ox 97.8 F 74 20 109/69 98 08/12/17 15:21 08/12/17 15:21 08/12/17 15:21 08/12/17 15:21 08/12/17 15:21 Intake and Output: 08/12/17 08/13/17 18:59 06:59 Intake Total 500 Balance 500 - Medications Medications: Current Medications Aspirin (Ecotrin) 81 mg PO DAILY [facility] Last Admin: 08/12/17 10:41 Dose: 81 mg Donepezil HCl (Aricept) 10 mg PO HS [facility] Last Admin: 08/11/17 21:07 Dose: 10 mg Famotidine (Pepcid) 20 mg PO DAILY [facility] Last Admin: 08/12/17 10:41 Dose: 20 mg Folic Acid (Folic Acid) 1 mg PO DAILY [facility] Last Admin: 08/12/17 10:41 Dose: 1 mg Losartan Potassium (Cozaar) 25 mg PO DAILY [facility] Last Admin: 08/12/17 10:41 Dose: 25 mg Memantine (Namenda) 10 mg PO DAILY [facility] Last Admin: 08/12/17 10:41 Dose: 10 mg Rosuvastatin Calcium (Crestor) 2.5 mg PO [facility] Last Admin: 08/11/17 21:07 Dose: 2.5 mg - Labs Labs: 08/07/17 14:26 08/07/17 14:26 PT 11.8 SECONDS (9.7-12.2) 06/21/17 22:04 INR 1.1 06/21/17 22:04 APTT 32 SECONDS (21-34) 06/21/17 22:04 Attending/Attestation - Attestation I have personally seen and examined this patient.: Yes I have fully participated in the care of the patient.: Yes I have reviewed all pertinent clinical information, including history, physical exam and plan: Yes Notes (Text): 08/12/17 20:55 Hospitalist Progress Note Patient was seen and examined at 3:30 PM 08/12/17 358 A HEENT, Cardio, Resp, GI, Ext, CN exams were unremarkable Assessments: 1). Dimentia: Aricept, Namenda, Folic Acid, Crestor, ASA 2). Anemia: resolved 3). Hypokalemia: resolved 4). Abnormal Chest X Ray (Granuloma?): CT Chest was unremarkable 5). Impaired Fasting Glucose: HgBA1C was 5.7 6). HTN: Cozaar 7). Prophylaxis: Pepcid, SCD, patient is walking 10 laps around the medical floor every hour [facility] Adult Protective Services who applied for guardianship is making arrangements for placement. Patient had court date on 08/09/17. Newsstand Vendor Lisa and Construction Controller Rashard are aware. Gary Damon D.O.
[2017-08-12] MEDS: Rosuvastatin Calcium 2.5 mg Tab PO SCH (21:31)
[2017-08-13 06:38] LABS: BASO % 0.6 % (0.0-2.0); EOS # 0.1 K/uL (0.0-0.7); EOS % 1.7 % (0.0-4.0); HEMOGLOBIN 13.6 g/dL (12.0-18.0); LYMPH # 1.5 K/uL (1.0-4.3); LYMPH % 22.4 % (20.0-40.0); MEAN CELL VOLUME 91.7 fL (80.0-94.0); MEAN CORPUSCULAR HEMOGLOBIN 31.6 pg (27.0-31.0); MEAN CORPUSCULAR HGB CONC 34.4 g/dL (33.0-37.0); MEAN PLATELET VOLUME 7.5 fL (7.2-11.7); MONO # 0.7 K/uL (0.0-0.8); MONO % 10.3 % (0.0-10.0); NEUT # 4.3 K/uL (1.8-7.0); RBC 4.31 Mil/uL (4.40-5.90); RED CELL DISTRIBUTION WIDTH 12.4 % (11.5-14.5); WHITE BLOOD COUNT 6.6 K/uL (4.8-10.8)
[2017-08-13 06:50] LABS: ALB/GLOB RATIO 1.2 (1.0-2.1); ALBUMIN 3.4 g/dL (3.5-5.0); ALT/SGPT 33 U/L (21-72); AST/SGOT 24 U/L (17-59); BLOOD UREA NITROGEN 11 mg/dL (9-20); CALCIUM 8.4 mg/dl (8.6-10.4); GFR AFRICAN-AMERICAN > 60; GFR NON-AFRICAN AMERICAN > 60
--- NOTE | 2017-08-13 12:03 | CP.PCM.PN ---
<Tamera Sawyer V - Last Filed: 08/13/17 14:03> Objective - Vital Signs/Intake and Output Vital Signs (last 24 hours): Temp Pulse Resp BP Pulse Ox 97.6 F 77 20 103/68 97 08/13/17 08:08 08/13/17 08:08 08/13/17 08:08 08/13/17 08:08 08/13/17 08:08 Intake and Output: 08/13/17 08/13/17 06:59 18:59 Intake Total 600 Balance 600 - Medications Medications: Current Medications Aspirin (Ecotrin) 81 mg PO DAILY [facility] Last Admin: 08/13/17 09:51 Dose: 81 mg Donepezil HCl (Aricept) 10 mg PO HS [facility] Last Admin: 08/12/17 21:31 Dose: 10 mg Famotidine (Pepcid) 20 mg PO DAILY [facility] Last Admin: 08/13/17 09:51 Dose: 20 mg Folic Acid (Folic Acid) 1 mg PO DAILY [facility] Last Admin: 08/13/17 09:51 Dose: 1 mg Losartan Potassium (Cozaar) 25 mg PO DAILY [facility] Last Admin: 08/13/17 09:51 Dose: 25 mg Memantine (Namenda) 10 mg PO DAILY [facility] Last Admin: 08/13/17 09:51 Dose: 10 mg Rosuvastatin Calcium (Crestor) 2.5 mg PO HS [facility] Last Admin: 08/12/17 21:31 Dose: 2.5 mg - Labs Labs: 08/13/17 06:27 08/13/17 06:27 PT 11.8 SECONDS (9.7-12.2) 06/21/17 22:04 INR 1.1 06/21/17 22:04 APTT 32 SECONDS (21-34) 06/21/17 22:04 Attending/Attestation - Attestation I have personally seen and examined this patient.: Yes I have fully participated in the care of the patient.: Yes I have reviewed all pertinent clinical information, including history, physical exam and plan: Yes Notes (Text): Patient seen, examined, case discussed with pediatric medical assistant. Patient denies acute complaints. Patient able to say it is August 18, 2016 but mixes up the date. Patient still recognizes that Solitario Marie and is quite frustrated by it. Patient's new court appointed guardian to come tomorrow to speak with patient and social work. Assessment/Plan: 1.) Family History of Alzheimer's Disease Early Onset of Dementia * Family Hx: patient had Alzheimer's Disease at age 71 * Patient was told by a neurologist he has early signs of dementia * Psych consult Dr. Valente --> help appreciated * CT scan of the head is negative * X-ray shows a apical granuloma * Neurology Dr. Manzanares-->help appreciated * Completed EEG 07/07/17 * Discussed patient may complete further workup as outpatient. * negative heavy metal screen * Discussed with Dr. manzanares 07/07 * Repeat MRI 07/09: no acute intracranial abnormality. Mild chronic microangiopathic changes and mild age-related global parenchymal volume loss. Please note workup is in prior admission when patient eloped on discharge. * CT scan of the chest is negative and unremarkable * UDS is negative * UA: urine only + for ketones * Brain MRI: Limited motion degraded study. No evidence of acute hemorrhage or infarct. Minor chronic white matter ischemic changes are felt be present. Moderate generalized volume loss. * RPR: nonreactive * HIV: negative * TSH: within normal and repeat within normal * Folate: normal and repeat within normal * B12: normal and repeat within normal * Recommended to patient to follow-up with neurology outpatient and to establish care in the clinic upon discharge Medications: * Aricept 10mg PO qHS * Namenda 10mg bid * Folic acid 1mg PO daily * Crestor 2.5mg PO HS 2.) Anemia-->Resolved * Within normal * Monitor 3.) Hypokalemia-->resolved * resolved 4) Abnormal Chest xray-->resolved * CT Chest: no acute pathology noted; official report in the computer 5.) Impaired glucose tolerance * Hgba1c: 5.7 * Will need check in one year for a1c to prevent over diabetes 6.) HTN-->Chronic * continue home Cozaar 25mg PO daily * Aspirin 81mg PO daily * 2 gram diet 7.) Prophylaxis * Pepcid 20mg PO BID * Patient is ambulatory. * SCDs * Appointed Guardian, Mr. Los Henry, [address] [facility] [address] ; Will speak with social work and patient tomorrow 08/14/17. Disposition: F/u with new court appointed Guardian after meeting patient and social work 08/14/17 to see what options are available for the patient for discharge planning. <Rao Hays - Last Filed: 08/13/17 18:52> Subjective - Date & Time of Evaluation Date of Evaluation: 08/13/17 Time of Evaluation: 08:00 - Subjective Subjective: Medicine Progress Note for Dr. Sawyer's Service, Rao Hays PGY1 [employer] Music Therapist Patient was seen and examined at bedside. Per nursing, there were no acute events overnight. The patient reports feeling better. The patient is currently at his baseline. The patient denies any chest pain, shortness of breath, lightheadedness, dizziness, changes in vision, syncopal episodes, urinary frequency, fevers, chills, or any other complaints. Objective - Vital Signs/Intake and Output Vital Signs (last 24 hours): Temp Pulse Resp BP Pulse Ox 97.6 F 77 20 103/68 97 08/13/17 08:08 08/13/17 08:08 08/13/17 08:08 08/13/17 08:08 08/13/17 08:08 Intake and Output: 08/13/17 08/13/17 06:59 18:59 Intake Total 600 Balance 600 - Medications Medications: Current Medications Aspirin (Ecotrin) 81 mg PO DAILY [facility] Last Admin: 08/13/17 09:51 Dose: 81 mg Donepezil HCl (Aricept) 10 mg PO [facility] Last Admin: 08/12/17 21:31 Dose: 10 mg Famotidine (Pepcid) 20 mg PO DAILY [facility] Last Admin: 08/13/17 09:51 Dose: 20 mg Folic Acid (Folic Acid) 1 mg PO DAILY [facility] Last Admin: 08/13/17 09:51 Dose: 1 mg Losartan Potassium (Cozaar) 25 mg PO DAILY [facility] Last Admin: 08/13/17 09:51 Dose: 25 mg Memantine (Namenda) 10 mg PO DAILY [facility] Last Admin: 08/13/17 09:51 Dose: 10 mg Rosuvastatin Calcium (Crestor) 2.5 mg PO [facility] Last Admin: 08/12/17 21:31 Dose: 2.5 mg - Labs Labs: 08/13/17 06:27 08/13/17 06:27 PT 11.8 SECONDS (9.7-12.2) 06/21/17 22:04 INR 1.1 06/21/17 22:04 APTT 32 SECONDS (21-34) 06/21/17 22:04 - Head Exam Head Exam: ATRAUMATIC, NORMAL INSPECTION, NORMOCEPHALIC - Eye Exam Eye Exam: EOMI, Normal appearance, PERRL. absent: Nystagmus, Periorbital tenderness Pupil Exam: NORMAL ACCOMODATION, PERRL. absent: Irregular, Unequal - ENT Exam ENT Exam: Mucous Membranes Moist, Normal Exam, Normal Oropharynx. absent: TM's Normal Bilaterally - Neck Exam Neck Exam: Normal Inspection. absent: Lymphadenopathy, Meningismus, Thyromegaly - Respiratory Exam Respiratory Exam: Clear to Ausculation Bilateral, NORMAL BREATHING PATTERN. absent: Chest Wall Tenderness, Prolonged Expiratory Phase, Respiratory Distress - Cardiovascular Exam Cardiovascular Exam: REGULAR RHYTHM, +S1, +S2. absent: Diastolic murmur, Gallop , RRR, Rubs - GI/Abdominal Exam GI & Abdominal Exam: Soft, Normal Bowel Sounds. absent: Guarding, Rigid, Hyperactive Bowel Sounds - Extremities Exam Extremities Exam: Full ROM, Normal Inspection. absent: Joint Swelling, Pedal Edema, Tenderness - Back Exam Back Exam: NORMAL INSPECTION. absent: CVA tenderness (L), CVA tenderness (R), paraspinal tenderness - Neurological Exam Neurological Exam: Alert, Awake, CN II-XII Intact - Psychiatric Exam Psychiatric exam: Normal Affect, Normal Mood. absent: Depressed - Skin Skin Exam: Dry, Intact. absent: Erythema, Rash, Urticaria Assessment and Plan - Assessment and Plan (Free Text) Assessment: 62 year old male with a a past medical history of AMS, dementia, anemia, hypertension, Impaired glucose tolerance, and hyperlipidemia who was admitted for altered mental status. Plan: 1.Early Onset of Dementia * Family Hx: patient had Alzheimer's Disease at age 71 * Patient was told by a neurologist he has early signs of dementia * Psych consult Dr. Valente --> help appreciated * CT scan of the head is negative * X-ray shows a apical granuloma * Neurology Dr. Manzanares--> help appreciated * Completed EEG 07/07/17 * Discussed patient may complete further workup as outpatient. * Negative heavy metal screen * Discussed with Dr. Manzanares 12/9 * Repeat MRI 07/09: no acute intracranial abnormality. Mild chronic microangiopathic changes and mild age-related global parenchymal volume loss. * No new recommendations from Neurology at this time * Elopement risk, will continue 1:1 observation Please note workup is in prior admission when patient eloped on discharge. * CT scan of the chest is negative and unremarkable * UDS is negative * UA: urine only + for ketones * Brain MRI: Limited motion degraded study. No evidence of acute hemorrhage or infarct. Minor chronic white matter ischemic changes are felt be present. Moderate generalized volume loss. * RPR: nonreactive * HIV: negative * TSH: within normal and repeat within normal * Folate: normal and repeat within normal * B12: normal and repeat within normal * Recommended to patient to follow-up with neurology outpatient and to establish care in the [facility] upon discharge Medications: * Aricept 10mg PO qHS * Namenda 10mg daily * Folic acid 1mg PO daily * Crestor 2.5mg PO HS 2.) Anemia-->Resolved * Within normal * Monitor 3.) Hypokalemia-->resolved * Resolved * Will monitor labs qweekly 4) Abnormal Chest xray-->resolved * CT Chest: no acute pathology noted; official report in the computer 5.) Impaired glucose tolerance * Hgba1c: 5.7 * Will need check in one year for a1c to prevent over diabetes 6.) HTN-->Chronic * Continue home Cozaar 25mg PO daily * Aspirin 81mg PO daily 7.) Prophylaxis * Pepcid 20mg PO daily * SCDs, patient is ambulating, heparin discontinued * Court Appointed temporary guardian. Mr. Dangelo Thomas [phone]--> agreement to send patient to assisted living Disposition: Patient has temporary guardianship, currently awaiting placement at assisted living facility in [place] (per discussion with rn case manager hospice). Patient had a court date for 08/09/17. Per social work, attempting to obtain possible placement.
--- NOTE | 2017-08-13 13:01 | CP.PCM.PN ---
Subjective - Date & Time of Evaluation Date of Evaluation: 08/13/17 Time of Evaluation: 12:58 - Subjective Subjective: Mr. rapp was seen and examined at the bedside. He is alert, oriented to place and person. He denies any headache, dizziness, lightheadedness, blurred vision, nausea, or vomiting. He remains on 1:1 sitter for patient safety. There was no untoward events overnight. Objective - Vital Signs/Intake and Output Vital Signs (last 24 hours): Temp Pulse Resp BP Pulse Ox 97.6 F 77 20 103/68 97 08/13/17 08:08 08/13/17 08:08 08/13/17 08:08 08/13/17 08:08 08/13/17 08:08 Intake and Output: 08/13/17 08/13/17 06:59 18:59 Intake Total 600 Balance 600 - Medications Medications: Current Medications Aspirin (Ecotrin) 81 mg PO DAILY [facility] Last Admin: 08/13/17 09:51 Dose: 81 mg Donepezil HCl (Aricept) [address] [facility] Last Admin: 08/12/17 21:31 Dose: 10 mg Famotidine (Pepcid) 20 mg PO DAILY [facility] Last Admin: 08/13/17 09:51 Dose: 20 mg Folic Acid (Folic Acid) 1 mg PO DAILY [facility] Last Admin: 08/13/17 09:51 Dose: 1 mg Losartan Potassium (Cozaar) 25 mg PO DAILY [facility] Last Admin: 08/13/17 09:51 Dose: 25 mg Memantine (Namenda) 10 mg PO DAILY [facility] Last Admin: 08/13/17 09:51 Dose: 10 mg Rosuvastatin Calcium (Crestor) 2.[address] [facility] Last Admin: 08/12/17 21:31 Dose: 2.5 mg - Labs Labs: 08/13/17 06:27 08/13/17 06:27 PT 11.8 SECONDS (9.7-12.2) 06/21/17 22:04 INR 1.1 06/21/17 22:04 APTT 32 SECONDS (21-34) 06/21/17 22:04 - Constitutional Appears: No Acute Distress - Head Exam Head Exam: NORMAL INSPECTION - Neurological Exam Neurological Exam: Alert, Awake Neuro motor strength exam: Left Upper Extremity: 5, Right Upper Extremity: 5, Left Lower Extremity: 5, Right Lower Extremity: 5 Additional comments: Neurological unchanged from previous examination. Assessment and Plan (1) Dementia Assessment & Plan: Case discussed with Dr. Manzanares, continue all current medical regimen. There is no new recommendations from neurology. Status: Chronic
[2017-08-13] MEDS: Rosuvastatin Calcium 2.5 mg Tab PO SCH (21:17)
--- NOTE | 2017-08-14 15:18 | CP.PCM.PN ---
<Rao Hays - Last Filed: 08/14/17 19:49> Subjective - Date & Time of Evaluation Date of Evaluation: 08/14/17 Time of Evaluation: 06:18 - Subjective Subjective: Medicine Progress Note for Dr. 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 Per nursing, there were no acute events overnight. The patient reports feeling better. The patient is currently at his baseline. The patient denies any abdominal pain, vomiting, headaches, chest pain, shortness of breath, lightheadedness, dizziness, changes in vision, syncopal episodes, urinary frequency, fevers, chills, or any other complaints. Objective - Vital Signs/Intake and Output Vital Signs (last 24 hours): Temp Pulse Resp BP Pulse Ox 97.7 F 79 20 111/76 95 08/14/17 08:00 08/14/17 08:00 08/14/17 08:00 08/14/17 08:00 08/14/17 08:00 Intake and Output: 08/14/17 08/14/17 06:59 18:59 Intake Total 880 550 Balance 880 550 - Medications Medications: Current Medications Aspirin (Ecotrin) 81 mg PO DAILY [facility] Last Admin: 08/14/17 09:25 Dose: 81 mg Donepezil HCl (Aricept) 10 mg PO HS [facility] Last Admin: 08/13/17 21:17 Dose: 10 mg Famotidine (Pepcid) 20 mg PO DAILY [facility] Last Admin: 08/14/17 09:24 Dose: 20 mg Folic Acid (Folic Acid) 1 mg PO DAILY [facility] Last Admin: 08/14/17 09:25 Dose: 1 mg Losartan Potassium (Cozaar) 25 mg PO DAILY [facility] Last Admin: 08/14/17 09:24 Dose: 25 mg Memantine (Namenda) 10 mg PO DAILY [facility] Last Admin: 08/14/17 09:25 Dose: 10 mg Rosuvastatin Calcium (Crestor) 2.5 mg PO HS [facility] Last Admin: 08/13/17 21:17 Dose: 2.5 mg - Labs Labs: 08/13/17 06:27 08/13/17 06:27 PT 11.8 SECONDS (9.7-12.2) 06/21/17 22:04 INR 1.1 06/21/17 22:04 APTT 32 SECONDS (21-34) 06/21/17 22:04 - Head Exam Head Exam: ATRAUMATIC, NORMAL INSPECTION, NORMOCEPHALIC - Eye Exam Eye Exam: EOMI, Normal appearance, PERRL. absent: Periorbital tenderness Pupil Exam: NORMAL ACCOMODATION, PERRL. absent: Irregular, Unequal - ENT Exam ENT Exam: Mucous Membranes Moist, Normal Exam, Normal Oropharynx - Neck Exam Neck Exam: absent: Lymphadenopathy, Thyromegaly - Respiratory Exam Respiratory Exam: Clear to Ausculation Bilateral, NORMAL BREATHING PATTERN. absent: Chest Wall Tenderness, Prolonged Expiratory Phase, Respiratory Distress - Cardiovascular Exam Cardiovascular Exam: REGULAR RHYTHM, RRR, +S1, +S2. absent: Gallop, Rubs - GI/Abdominal Exam GI & Abdominal Exam: Soft, Normal Bowel Sounds. absent: Rigid, Hyperactive Bowel Sounds - Extremities Exam Extremities Exam: Full ROM, Normal Inspection. absent: Joint Swelling, Pedal Edema, Tenderness - Back Exam Back Exam: NORMAL INSPECTION. absent: CVA tenderness (L), CVA tenderness (R), paraspinal tenderness - Neurological Exam Neurological Exam: Alert, Awake, CN II-XII Intact - Psychiatric Exam Psychiatric exam: Normal Affect, Normal Mood. absent: Anxious, Depressed - Skin Skin Exam: Dry, Intact, Normal Color, Warm Assessment and Plan - Assessment and Plan (Free Text) Assessment: 62 year old male with a past medical history of dementia, anemia, hypertension, IGT, and hyperlipidemia who was admitted for altered mental status. Plan: Early Onset of Dementia * Family Hx: patient had Alzheimer's Disease at age 71 * Patient was told by a neurologist he has early signs of dementia * Psych consult Dr. Valente --> help appreciated * CT scan of the head is negative * X-ray shows a apical granuloma * Neurology Dr. Manzanares--> help appreciated * Completed EEG 07/07/17 * Discussed patient may complete further workup as outpatient. * Negative heavy metal screen * Discussed with Dr. Manzanares 07/07 * Repeat MRI 07/09: no acute intracranial abnormality. Mild chronic microangiopathic changes and mild age-related global parenchymal volume loss. * No new recommendations from Neurology at this time * Elopement risk, will continue 1:1 observation Please note workup is in prior admission when patient eloped on discharge. * CT scan of the chest is negative and unremarkable * UDS is negative * UA: urine only + for ketones * Brain MRI: Limited motion degraded study. No evidence of acute hemorrhage or infarct. Minor chronic white matter ischemic changes are felt be present. Moderate generalized volume loss. * RPR: nonreactive * HIV: negative * TSH: within normal and repeat within normal * Folate: normal and repeat within normal * B12: normal and repeat within normal * Recommended to patient to follow-up with neurology outpatient and to establish care in the [facility] upon discharge Medications: * Aricept 10mg PO qHS * Namenda 10mg daily * Folic acid 1mg PO daily * Crestor 2.5mg PO HS Anemia (Resolved) * Within normal * Monitor Hypokalemia (resolved) * Resolved * Will monitor labs qweekly Abnormal Chest xray-->resolved * CT Chest: no acute pathology noted; official report in the computer Impaired glucose tolerance * Hgba1c: 5.7 * Will need check in one year for a1c to prevent over diabetes HTN-->Chronic * Continue home Cozaar 25mg PO daily * Aspirin 81mg PO daily Prophylaxis * Pepcid 20mg PO daily * SCDs, patient is ambulating, heparin discontinued Disposition: Mr. Jake Henry, [address] [facility] [facility], [place] [address]--> Newly appointed Guardian. Patient to have meeting today to discuss discharge options <Tamera Sawyer V - Last Filed: 08/14/17 21:04> Objective - Vital Signs/Intake and Output Vital Signs (last 24 hours): Temp Pulse Resp BP Pulse Ox 97.6 F 72 20 127/73 98 08/14/17 15:47 08/14/17 15:47 08/14/17 15:47 08/14/17 15:47 08/14/17 15:47 Intake and Output: 08/14/17 08/15/17 18:59 06:59 Intake Total 550 Balance 550 - Medications Medications: Current Medications Aspirin (Ecotrin) 81 mg PO DAILY [facility] Last Admin: 08/14/17 09:25 Dose: 81 mg Donepezil HCl (Aricept) 10 mg PO HS [facility] Last Admin: 08/13/17 21:17 Dose: 10 mg Famotidine (Pepcid) 20 mg PO DAILY [facility] Last Admin: 08/14/17 09:24 Dose: 20 mg Folic Acid (Folic Acid) 1 mg PO DAILY [facility] Last Admin: 08/14/17 09:25 Dose: 1 mg Losartan Potassium (Cozaar) 25 mg PO DAILY [facility] Last Admin: 08/14/17 09:24 Dose: 25 mg Memantine (Namenda) 10 mg PO DAILY [facility] Last Admin: 08/14/17 09:25 Dose: 10 mg Rosuvastatin Calcium (Crestor) 2.5 mg PO HS [facility] Last Admin: 08/13/17 21:17 Dose: 2.5 mg - Labs Labs: 08/13/17 06:27 08/13/17 06:27 PT 11.8 SECONDS (9.7-12.2) 06/21/17 22:04 INR 1.1 06/21/17 22:04 APTT 32 SECONDS (21-34) 06/21/17 22:04 Attending/Attestation - Attestation I have personally seen and examined this patient.: Yes I have fully participated in the care of the patient.: Yes I have reviewed all pertinent clinical information, including history, physical exam and plan: Yes Notes (Text): Patient seen, examined, case discussed with director medical surgical. Patient denies acute complaints. Patient still recognizes that Solitario Marie and is quite frustrated by it. Patient's new court appointed guardian to come tomorrow to speak with patient and social work. Social work to discuss with patient's new guardian regarding options on August 21. Assessment/Plan: 1.) Family History of Alzheimer's Disease Early Onset of Dementia * Family Hx: patient had Alzheimer's Disease at age 71 * Patient was told by a neurologist he has early signs of dementia * Psych consult Dr. Valente --> help appreciated * CT scan of the head is negative * X-ray shows a apical granuloma * Neurology Dr. Manzanares-->help appreciated * Completed EEG 07/07/17 * Discussed patient may complete further workup as outpatient. * negative heavy metal screen * Repeat MRI 07/09: no acute intracranial abnormality. Mild chronic microangiopathic changes and mild age-related global parenchymal volume loss. Please note workup is in prior admission when patient eloped on discharge. * CT scan of the chest is negative and unremarkable * UDS is negative * UA: urine only + for ketones * Brain MRI: Limited motion degraded study. No evidence of acute hemorrhage or infarct. Minor chronic white matter ischemic changes are felt be present. Moderate generalized volume loss. * RPR: nonreactive * HIV: negative * TSH: within normal and repeat within normal * Folate: normal and repeat within normal * B12: normal and repeat within normal * Recommended to patient to follow-up with neurology outpatient and to establish care in the [facility] upon discharge Medications: * Aricept 10mg PO qHS * Namenda 10mg bid * Folic acid 1mg PO daily * Crestor 2.5mg PO HS 2.) Anemia-->Resolved * Within normal * Monitor 3.) Hypokalemia-->resolved * resolved 4) Abnormal Chest xray-->resolved * CT Chest: no acute pathology noted; official report in the computer 5.) Impaired glucose tolerance * Hgba1c: 5.7 * Will need check in one year for a1c to prevent over diabetes 6.) HTN-->Chronic * continue home Cozaar 25mg PO daily * Aspirin 81mg PO daily * 2 gram diet 7.) Prophylaxis * Pepcid 20mg PO BID * Patient is ambulatory. * SCDs * Appointed Guardian, Mr. Los Luke Carl, [address] [place] [address] ; Will speak with social work and patient tomorrow 08/14/17. Disposition: F/u with new court appointed Guardian after meeting patient and social work 08/21/17 to see what options are available for the patient for discharge planning.
[2017-08-14] MEDS: Rosuvastatin Calcium 2.5 mg Tab PO SCH (21:28)
--- NOTE | 2017-08-15 11:16 | CP.PCM.PN ---
<Rao Hays - Last Filed: 08/16/17 11:53> Subjective - Date & Time of Evaluation Date of Evaluation: 08/15/17 Time of Evaluation: 09:15 - Subjective Subjective: Medicine Progress Note for Dr. Sawyer's Service, Rao Hays PGY1 [employer] Patient was seen and examined at bedside. Per nursing, there were no acute events overnight. The patient reports feeling better. The patient is currently at his baseline. The patient denies any fevers, chills, nausea, vomiting, headaches, syncopal episodes, abdominal pain, chest pain, shortness of breath, constipation ,diarrhea, or any other complaints. Objective - Vital Signs/Intake and Output Vital Signs (last 24 hours): Temp Pulse Resp BP Pulse Ox 97.9 F 80 20 122/82 96 08/15/17 08:04 08/15/17 08:04 08/15/17 08:04 08/15/17 08:04 08/15/17 08:04 Intake and Output: 08/15/17 08/15/17 06:59 18:59 Intake Total 300 Balance 300 - Medications Medications: Current Medications Aspirin (Ecotrin) 81 mg PO DAILY [facility] Last Admin: 08/15/17 09:51 Dose: 81 mg Donepezil HCl (Aricept) 10 mg PO [facility] Last Admin: 08/14/17 21:28 Dose: 10 mg Famotidine (Pepcid) 20 mg PO DAILY [facility] Last Admin: 08/15/17 09:51 Dose: 20 mg Folic Acid (Folic Acid) 1 mg PO DAILY [facility] Last Admin: 08/15/17 09:51 Dose: 1 mg Losartan Potassium (Cozaar) 25 mg PO DAILY [facility] Last Admin: 08/15/17 09:51 Dose: 25 mg Memantine (Namenda) 10 mg PO DAILY [facility] Last Admin: 08/15/17 09:51 Dose: 10 mg Rosuvastatin Calcium (Crestor) 2.5 mg PO [facility] Last Admin: 08/14/17 21:28 Dose: 2.5 mg - Labs Labs: 08/13/17 06:27 08/13/17 06:27 PT 11.8 SECONDS (9.7-12.2) 06/21/17 22:04 INR 1.1 06/21/17 22:04 APTT 32 SECONDS (21-34) 06/21/17 22:04 - Head Exam Head Exam: ATRAUMATIC, NORMAL INSPECTION, NORMOCEPHALIC - Eye Exam Eye Exam: EOMI, Normal appearance, PERRL. absent: Periorbital tenderness Pupil Exam: NORMAL ACCOMODATION, PERRL. absent: Irregular, Unequal - ENT Exam ENT Exam: Mucous Membranes Moist, Normal Exam, Normal Oropharynx - Neck Exam Neck Exam: absent: Lymphadenopathy, Thyromegaly - Respiratory Exam Respiratory Exam: Clear to Ausculation Bilateral, NORMAL BREATHING PATTERN. absent: Chest Wall Tenderness, Prolonged Expiratory Phase, Respiratory Distress - Cardiovascular Exam Cardiovascular Exam: REGULAR RHYTHM, RRR, +S1, +S2. absent: Gallop, Rubs - GI/Abdominal Exam GI & Abdominal Exam: Soft, Normal Bowel Sounds. absent: Hyperactive Bowel Sounds - Extremities Exam Extremities Exam: Full ROM, Normal Inspection. absent: Joint Swelling, Pedal Edema, Tenderness - Back Exam Back Exam: NORMAL INSPECTION. absent: CVA tenderness (L), CVA tenderness (R), paraspinal tenderness - Neurological Exam Neurological Exam: Alert, Awake, CN II-XII Intact Additional comments: Orientated to Time and Place. - Psychiatric Exam Psychiatric exam: Normal Affect, Normal Mood - Skin Skin Exam: Dry, Intact, Normal Color, Warm Assessment and Plan - Assessment and Plan (Free Text) Assessment: 62 year old male with a past medical history of dementia, anemia, hypertension, IGT, and hyperlipidemia who was admitted for altered mental status. Plan: Early Onset of Dementia * Family Hx: patient had Alzheimer's Disease at age 71 * Patient was told by a neurologist he has early signs of dementia * Psych consult Dr. Valente --> help appreciated * CT scan of the head is negative * X-ray shows a apical granuloma * Neurology Dr. Manzanares--> help appreciated * Completed EEG 07/07/17 * Discussed patient may complete further workup as outpatient. * Negative heavy metal screen * Discussed with Dr. Manzanares 07/07 * Repeat MRI 07/09: no acute intracranial abnormality. Mild chronic microangiopathic changes and mild age-related global parenchymal volume loss. * No new recommendations from Neurology at this time * Elopement risk, will continue 1:1 observation Please note workup is in prior admission when patient eloped on discharge. * CT scan of the chest is negative and unremarkable * UDS is negative * UA: urine only + for ketones * Brain MRI: Limited motion degraded study. No evidence of acute hemorrhage or infarct. Minor chronic white matter ischemic changes are felt be present. Moderate generalized volume loss. * RPR: nonreactive * HIV: negative * TSH: within normal and repeat within normal * Folate: normal and repeat within normal * B12: normal and repeat within normal * Recommended to patient to follow-up with neurology outpatient and to establish care in the [facility] upon discharge Medications: * Aricept 10mg PO qHS * Namenda 10mg daily * Folic acid 1mg PO daily * Crestor 2.5mg PO HS Anemia (Resolved) * Within normal * Monitor Hypokalemia (resolved) * Resolved * Will monitor labs qweekly Abnormal Chest xray-->resolved * CT Chest: no acute pathology noted; official report in the computer Impaired glucose tolerance * Hgba1c: 5.7 * Will need check in one year for a1c to prevent over diabetes HTN-->Chronic * Continue home Cozaar 25mg PO daily * Aspirin 81mg PO daily Prophylaxis * Pepcid 20mg PO daily * SCDs, patient is ambulating, heparin discontinued Disposition: Mr. Jake Henry, [address], [place] [address]--> Newly appointed Guardian. Patient had meeting with Guardian yesterday. Will follow up with Case Management for new developments. <Tamera Sawyer V - Last Filed: 08/16/17 23:19> Objective - Vital Signs/Intake and Output Vital Signs (last 24 hours): Temp Pulse Resp BP Pulse Ox 98.2 F 72 20 115/73 96 08/16/17 16:00 08/16/17 16:00 08/16/17 16:00 08/16/17 16:00 08/16/17 16:00 Intake and Output: 08/16/17 08/17/17 18:59 06:59 Intake Total 480 Balance 480 - Medications Medications: Current Medications Aspirin (Ecotrin) 81 mg PO DAILY [facility] Last Admin: 08/16/17 09:16 Dose: 81 mg Donepezil HCl (Aricept) 10 mg PO HS [facility] Last Admin: 08/16/17 21:49 Dose: 10 mg Famotidine (Pepcid) 20 mg PO DAILY [facility] Last Admin: 08/16/17 09:16 Dose: 20 mg Folic Acid (Folic Acid) 1 mg PO DAILY [facility] Last Admin: 08/16/17 09:16 Dose: 1 mg Losartan Potassium (Cozaar) 25 mg PO DAILY [facility] Last Admin: 08/16/17 09:16 Dose: 25 mg Memantine (Namenda) 10 mg PO DAILY [facility] Last Admin: 08/16/17 09:16 Dose: 10 mg Rosuvastatin Calcium (Crestor) 2.5 mg PO HS [facility] Last Admin: 08/16/17 21:49 Dose: 2.5 mg - Labs Labs: 08/16/17 07:35 08/16/17 07:35 PT 11.8 SECONDS (9.7-12.2) 06/21/17 22:04 INR 1.1 06/21/17 22:04 APTT 32 SECONDS (21-34) 06/21/17 22:04 Attending/Attestation - Attestation I have personally seen and examined this patient.: Yes I have fully participated in the care of the patient.: Yes I have reviewed all pertinent clinical information, including history, physical exam and plan: Yes Notes (Text): This is late computer entry for 08/15/17. Patient seen, examined, case discussed with medical lab specialist. Patient denies acute complaints. Patient still recognizes that Solitario Marie and is quite frustrated by it. Patient's new court appointed guardian to come 08/21/17 to speak with patient and social work. Patient provided 2 old-fashioned donuts since they are his favorite in the mean time. Assessment/Plan: 1.) Family History of Alzheimer's Disease Early Onset of Dementia * Family Hx: patient had Alzheimer's Disease at age 71 * Patient was told by a neurologist he has early signs of dementia * Psych consult Dr. Valente --> help appreciated * CT scan of the head is negative * X-ray shows a apical granuloma * Neurology Dr. Manzanares-->help appreciated * Completed EEG 07/07/17 * Discussed patient may complete further workup as outpatient. * negative heavy metal screen * Repeat MRI 07/09: no acute intracranial abnormality. Mild chronic microangiopathic changes and mild age-related global parenchymal volume loss. Please note workup is in prior admission when patient eloped on discharge. * CT scan of the chest is negative and unremarkable * UDS is negative * UA: urine only + for ketones * Brain MRI: Limited motion degraded study. No evidence of acute hemorrhage or infarct. Minor chronic white matter ischemic changes are felt be present. Moderate generalized volume loss. * RPR: nonreactive * HIV: negative * TSH: within normal and repeat within normal * Folate: normal and repeat within normal * B12: normal and repeat within normal * Recommended to patient to follow-up with neurology outpatient and to establish care in the [facility] upon discharge Medications: * Aricept 10mg PO qHS * Namenda 10mg bid * Folic acid 1mg PO daily * Crestor 2.5mg PO HS 2.) Anemia-->Resolved * Within normal * Monitor 3.) Hypokalemia-->resolved * resolved 4) Abnormal Chest xray-->resolved * CT Chest: no acute pathology noted; official report in the computer 5.) Impaired glucose tolerance * Hgba1c: 5.7 * Will need check in one year for a1c to prevent over diabetes 6.) HTN-->Chronic * continue home Cozaar 25mg PO daily * Aspirin 81mg PO daily * 2 gram diet 7.) Prophylaxis * Pepcid 20mg PO BID * Patient is ambulatory. * SCDs * Appointed Guardian, Mr. Los Luke Carl, [address] [place] [address] ; follow-up meeting on 08/21/17 Disposition: F/u with new court appointed Guardian after meeting patient and social work 08/21/17 to see what options are available for the patient for discharge planning.
[2017-08-15] MEDS: Rosuvastatin Calcium 2.5 mg Tab PO SCH (21:49)
[2017-08-16 07:51] LABS: BASO % 0.3 % (0.0-2.0); EOS # 0.1 K/uL (0.0-0.7); EOS % 1.9 % (0.0-4.0); HEMOGLOBIN 13.5 g/dL (12.0-18.0); LYMPH # 1.7 K/uL (1.0-4.3); MEAN CELL VOLUME 91.8 fL (80.0-94.0); MEAN CORPUSCULAR HEMOGLOBIN 32.3 pg (27.0-31.0); MEAN CORPUSCULAR HGB CONC 35.2 g/dL (33.0-37.0); MEAN PLATELET VOLUME 7.6 fL (7.2-11.7); MONO # 0.6 K/uL (0.0-0.8); MONO % 10.8 % (0.0-10.0); NEUT # 3.1 K/uL (1.8-7.0); RBC 4.17 Mil/uL (4.40-5.90); RED CELL DISTRIBUTION WIDTH 12.8 % (11.5-14.5); WHITE BLOOD COUNT 5.5 K/uL (4.8-10.8)
[2017-08-16 08:32] LABS: ALB/GLOB RATIO 1.3 (1.0-2.1); ALBUMIN 3.6 g/dL (3.5-5.0); ALT/SGPT 35 U/L (21-72); AST/SGOT 24 U/L (17-59); BLOOD UREA NITROGEN 15 mg/dL (9-20); CALCIUM 8.9 mg/dl (8.6-10.4); GFR AFRICAN-AMERICAN > 60; GFR NON-AFRICAN AMERICAN > 60
--- NOTE | 2017-08-16 11:53 | CP.PCM.PN ---
<Rao Hays - Last Filed: 08/16/17 18:09> Subjective - Date & Time of Evaluation Date of Evaluation: 08/16/17 Time of Evaluation: 11:50 - Subjective Subjective: Medicine Progress Note for Dr. Sawyer's Service, Rao Hays PGY1 Manager Rad[employer] Patient was seen and examined at bedside. Per nursing, there were no acute events overnight. The patient reports feeling better. The patient is currently at his neurological baseline. The patient denies any lightheadedness , skin changes, fevers, chills, nausea, vomiting, headaches, syncopal episodes, abdominal pain, chest pain, shortness of breath, constipation ,diarrhea, or any other complaints. Objective - Vital Signs/Intake and Output Vital Signs (last 24 hours): Temp Pulse Resp BP Pulse Ox 97.4 F L 75 20 120/83 96 08/16/17 08:48 08/16/17 08:48 08/16/17 08:48 08/16/17 08:48 08/16/17 08:48 Intake and Output: 08/16/17 08/16/17 06:59 18:59 Intake Total 400 Balance 400 - Medications Medications: Current Medications Aspirin (Ecotrin) 81 mg PO DAILY [facility] Last Admin: 08/16/17 09:16 Dose: 81 mg Donepezil HCl (Aricept) 10 mg PO [facility] Last Admin: 08/15/17 21:49 Dose: 10 mg Famotidine (Pepcid) 20 mg PO DAILY [facility] Last Admin: 08/16/17 09:16 Dose: 20 mg Folic Acid (Folic Acid) 1 mg PO DAILY [facility] Last Admin: 08/16/17 09:16 Dose: 1 mg Losartan Potassium (Cozaar) 25 mg PO DAILY [facility] Last Admin: 08/16/17 09:16 Dose: 25 mg Memantine (Namenda) 10 mg PO DAILY [facility] Last Admin: 08/16/17 09:16 Dose: 10 mg Rosuvastatin Calcium (Crestor) 2.5 mg PO [facility] Last Admin: 08/15/17 21:49 Dose: 2.5 mg - Labs Labs: 08/16/17 07:35 08/16/17 07:35 PT 11.8 SECONDS (9.7-12.2) 06/21/17 22:04 INR 1.1 06/21/17 22:04 APTT 32 SECONDS (21-34) 06/21/17 22:04 - Head Exam Head Exam: ATRAUMATIC, NORMAL INSPECTION, NORMOCEPHALIC - Eye Exam Eye Exam: EOMI, Normal appearance, PERRL. absent: Periorbital tenderness Pupil Exam: NORMAL ACCOMODATION, PERRL. absent: Irregular, Unequal - ENT Exam ENT Exam: Mucous Membranes Moist, Normal Exam, Normal Oropharynx - Neck Exam Neck Exam: absent: Lymphadenopathy, Thyromegaly - Respiratory Exam Respiratory Exam: Clear to Ausculation Bilateral, NORMAL BREATHING PATTERN. absent: Chest Wall Tenderness, Prolonged Expiratory Phase, Respiratory Distress - Cardiovascular Exam Cardiovascular Exam: REGULAR RHYTHM, RRR, +S1, +S2. absent: Gallop, Rubs - GI/Abdominal Exam GI & Abdominal Exam: Soft, Normal Bowel Sounds. absent: Hyperactive Bowel Sounds - Extremities Exam Extremities Exam: Full ROM. absent: Joint Swelling, Pedal Edema - Back Exam Back Exam: NORMAL INSPECTION. absent: CVA tenderness (L), CVA tenderness (R), paraspinal tenderness - Neurological Exam Neurological Exam: Alert, Awake, CN II-XII Intact - Psychiatric Exam Psychiatric exam: Normal Affect, Normal Mood. absent: Anxious, Depressed - Skin Skin Exam: Dry, Intact, Normal Color, Warm Assessment and Plan - Assessment and Plan (Free Text) Plan: Early Onset of Dementia * Family Hx: patient had Alzheimer's Disease at age 71 * Patient was told by a neurologist he has early signs of dementia * Psych consult Dr. Valente --> help appreciated * CT scan of the head is negative * X-ray shows a apical granuloma * Neurology Dr. Manzanares--> help appreciated * Completed EEG 07/07/17 * Discussed patient may complete further workup as outpatient. * Negative heavy metal screen * Discussed with Dr. Manzanares 07/07 * Repeat MRI 07/09: no acute intracranial abnormality. Mild chronic microangiopathic changes and mild age-related global parenchymal volume loss. * No new recommendations from Neurology at this time * Elopement risk, will continue 1:1 observation Please note workup is in prior admission when patient eloped on discharge. * CT scan of the chest is negative and unremarkable * UDS is negative * UA: urine only + for ketones * Brain MRI: Limited motion degraded study. No evidence of acute hemorrhage or infarct. Minor chronic white matter ischemic changes are felt be present. Moderate generalized volume loss. * RPR: nonreactive * HIV: negative * TSH: within normal and repeat within normal * Folate: normal and repeat within normal * B12: normal and repeat within normal * Recommended to patient to follow-up with neurology outpatient and to establish care in the [facility] upon discharge Medications: * Aricept 10mg PO qHS * Namenda 10mg daily * Folic acid 1mg PO daily * Crestor 2.5mg PO HS Anemia (Resolved) * Within normal * Monitor Hypokalemia (resolved) * Resolved * Will monitor labs qweekly Abnormal Chest xray-->resolved * CT Chest: no acute pathology noted; official report in the computer Impaired glucose tolerance * Hgba1c: 5.7 * Will need check in one year for a1c to prevent over diabetes HTN-->Chronic * Continue home Cozaar 25mg PO daily * Aspirin 81mg PO daily Prophylaxis * Pepcid 20mg PO daily * SCDs, patient is ambulating, heparin discontinued Disposition: Mr. Jake Henry, [address] [place] [address]--> Newly appointed Guardian. Patient had meeting with Guardian . Awaiting appointment on 08/21/17. Will follow up with Case Management for new developments. <Tamera Sawyer V - Last Filed: 08/16/17 23:20> Objective - Vital Signs/Intake and Output Vital Signs (last 24 hours): Temp Pulse Resp BP Pulse Ox 98.2 F 72 20 115/73 96 08/16/17 16:00 08/16/17 16:00 08/16/17 16:00 08/16/17 16:00 08/16/17 16:00 Intake and Output: 08/16/17 08/17/17 18:59 06:59 Intake Total 480 Balance 480 - Medications Medications: Current Medications Aspirin (Ecotrin) 81 mg PO DAILY [facility] Last Admin: 08/16/17 09:16 Dose: 81 mg Donepezil HCl (Aricept) 10 mg PO HS [facility] Last Admin: 08/16/17 21:49 Dose: 10 mg Famotidine (Pepcid) 20 mg PO DAILY [facility] Last Admin: 08/16/17 09:16 Dose: 20 mg Folic Acid (Folic Acid) 1 mg PO DAILY [facility] Last Admin: 08/16/17 09:16 Dose: 1 mg Losartan Potassium (Cozaar) 25 mg PO DAILY [facility] Last Admin: 08/16/17 09:16 Dose: 25 mg Memantine (Namenda) 10 mg PO DAILY [facility] Last Admin: 08/16/17 09:16 Dose: 10 mg Rosuvastatin Calcium (Crestor) 2.5 mg PO HS [facility] Last Admin: 08/16/17 21:49 Dose: 2.5 mg - Labs Labs: 08/16/17 07:35 08/16/17 07:35 PT 11.8 SECONDS (9.7-12.2) 06/21/17 22:04 INR 1.1 06/21/17 22:04 APTT 32 SECONDS (21-34) 06/21/17 22:04 Attending/Attestation - Attestation I have personally seen and examined this patient.: Yes I have fully participated in the care of the patient.: Yes I have reviewed all pertinent clinical information, including history, physical exam and plan: Yes Notes (Text): Patient seen, examined, case discussed with medical radiation therapist. Patient denies acute complaints. Patient still recognizes that Solitario Marie and is quite frustrated by it. Patient's new court appointed guardian to come 08/21/17 to speak with patient and social work. Patient provided 2 old-fashioned donuts since they are his favorite in the mean time for the second time. Assessment/Plan: 1.) Family History of Alzheimer's Disease Early Onset of Dementia * Family Hx: patient had Alzheimer's Disease at age 71 * Patient was told by a neurologist he has early signs of dementia * Psych consult Dr. Valente --> help appreciated * CT scan of the head is negative * X-ray shows a apical granuloma * Neurology Dr. Manzanares-->help appreciated * Completed EEG 07/07/17 * Discussed patient may complete further workup as outpatient. * negative heavy metal screen * Repeat MRI 07/09: no acute intracranial abnormality. Mild chronic microangiopathic changes and mild age-related global parenchymal volume loss. Please note workup is in prior admission when patient eloped on discharge. * CT scan of the chest is negative and unremarkable * UDS is negative * UA: urine only + for ketones * Brain MRI: Limited motion degraded study. No evidence of acute hemorrhage or infarct. Minor chronic white matter ischemic changes are felt be present. Moderate generalized volume loss. * RPR: nonreactive * HIV: negative * TSH: within normal and repeat within normal * Folate: normal and repeat within normal * B12: normal and repeat within normal * Recommended to patient to follow-up with neurology outpatient and to establish care in the [facility] upon discharge Medications: * Aricept 10mg PO qHS * Namenda 10mg bid * Folic acid 1mg PO daily * Crestor 2.5mg PO HS 2.) Anemia-->Resolved * Within normal * Monitor 3.) Hypokalemia-->resolved * resolved 4) Abnormal Chest xray-->resolved * CT Chest: no acute pathology noted; official report in the computer 5.) Impaired glucose tolerance * Hgba1c: 5.7 * Will need check in one year for a1c to prevent over diabetes 6.) HTN-->Chronic * continue home Cozaar 25mg PO daily * Aspirin 81mg PO daily * 2 gram diet 7.) Prophylaxis * Pepcid 20mg PO BID * Patient is ambulatory. * SCDs * Appointed Guardian, Mr. Los Luke Carl, [address] [facility] [address] ; follow-up meeting on 08/21/17 Disposition: F/u with new court appointed Guardian after meeting patient and social work 08/21/17 to see what options are available for the patient for discharge planning.
--- NOTE | 2017-08-16 13:39 | CP.PCM.PN ---
Subjective - Date & Time of Evaluation Date of Evaluation: 08/16/17 Time of Evaluation: 13:35 - Subjective Subjective: Mr. Nelson was seen and examined at the bedside. He is alert, oriented. He denies any headache, dizziness, lightheadedness, blurred vision, numbness, nausea, or vomiting. He is reading a book and able to narrate the summary of the book. He further states that his ex- usually comes and drop off his basic needs. He has state guardianship was approved and awaiting for facility placement. He remains on 1:1 sitter for patient safety. There was no untoward events overnight. Objective - Vital Signs/Intake and Output Vital Signs (last 24 hours): Temp Pulse Resp BP Pulse Ox 97.4 F L 75 20 120/83 96 08/16/17 08:48 08/16/17 08:48 08/16/17 08:48 08/16/17 08:48 08/16/17 08:48 Intake and Output: 08/16/17 08/16/17 06:59 18:59 Intake Total 400 Balance 400 - Medications Medications: Current Medications Aspirin (Ecotrin) 81 mg PO DAILY [facility] Last Admin: 08/16/17 09:16 Dose: 81 mg Donepezil HCl (Aricept) 10 mg PO [facility] Last Admin: 08/15/17 21:49 Dose: 10 mg Famotidine (Pepcid) 20 mg PO DAILY [facility] Last Admin: 08/16/17 09:16 Dose: 20 mg Folic Acid (Folic Acid) 1 mg PO DAILY [facility] Last Admin: 08/16/17 09:16 Dose: 1 mg Losartan Potassium (Cozaar) 25 mg PO DAILY [facility] Last Admin: 08/16/17 09:16 Dose: 25 mg Memantine (Namenda) 10 mg PO DAILY [facility] Last Admin: 08/16/17 09:16 Dose: 10 mg Rosuvastatin Calcium (Crestor) 2.5 mg PO [facility] Last Admin: 08/15/17 21:49 Dose: 2.5 mg - Labs Labs: 08/16/17 07:35 08/16/17 07:35 PT 11.8 SECONDS (9.7-12.2) 06/21/17 22:04 INR 1.1 06/21/17 22:04 APTT 32 SECONDS (21-34) 06/21/17 22:04 - Constitutional Appears: No Acute Distress - Head Exam Head Exam: NORMAL INSPECTION - Neurological Exam Neurological Exam: Alert, Awake, Normal Gait, Oriented x3 Neuro motor strength exam: Left Upper Extremity: 5, Right Upper Extremity: 5, Left Lower Extremity: 5, Right Lower Extremity: 5 Additional comments: neurological unchanged from previous examination. Assessment and Plan (1) Dementia Assessment & Plan: Case discussed with Dr. Manzanares, continue all current medical regimen. There is no new recommendation from neurology. Status: Chronic
[2017-08-16] MEDS: Rosuvastatin Calcium 2.5 mg Tab PO SCH (21:49)
--- NOTE | 2017-08-17 14:00 | CP.PCM.PN ---
Subjective - Date & Time of Evaluation Date of Evaluation: 08/17/17 Time of Evaluation: 13:58 - Subjective Subjective: Mr. Nelson was seen and examined at the bedside. He is alert, oriented. He denies any dizziness, blurred vision, headache, and states that he has all the patience in the world awaiting for his sander. He keeps himself busy with reading newspaper and books. He can follow simple commands. He remains on 1:1 sitter for patient safety. There was no untoward events overnight. Objective - Vital Signs/Intake and Output Vital Signs (last 24 hours): Temp Pulse Resp BP Pulse Ox 97.4 F L 71 20 101/66 97 08/17/17 07:00 08/17/17 07:00 08/17/17 07:00 08/17/17 07:00 08/17/17 07:00 - Medications Medications: Current Medications Aspirin (Ecotrin) 81 mg PO DAILY [facility] Last Admin: 08/17/17 10:43 Dose: 81 mg Donepezil HCl (Aricept) 10 mg PO [facility] Last Admin: 08/16/17 21:49 Dose: 10 mg Famotidine (Pepcid) 20 mg PO DAILY [facility] Last Admin: 08/17/17 10:43 Dose: 20 mg Folic Acid (Folic Acid) 1 mg PO DAILY [facility] Last Admin: 08/17/17 10:43 Dose: 1 mg Losartan Potassium (Cozaar) 25 mg PO DAILY [facility] Last Admin: 08/17/17 10:42 Dose: 25 mg Memantine (Namenda) 10 mg PO DAILY [facility] Last Admin: 08/17/17 10:43 Dose: 10 mg Rosuvastatin Calcium (Crestor) 2.5 mg PO [facility] Last Admin: 08/16/17 21:49 Dose: 2.5 mg - Labs Labs: 08/16/17 07:35 08/16/17 07:35 PT 11.8 SECONDS (9.7-12.2) 06/21/17 22:04 INR 1.1 06/21/17 22:04 APTT 32 SECONDS (21-34) 06/21/17 22:04 - Constitutional Appears: No Acute Distress - Head Exam Head Exam: NORMAL INSPECTION - Neurological Exam Neurological Exam: Alert, Awake Neuro motor strength exam: Left Upper Extremity: 5, Right Upper Extremity: 5, Left Lower Extremity: 5, Right Lower Extremity: 5 Additional comments: Neurological unchanged from previous examination. Assessment and Plan (1) Dementia Assessment & Plan: Case discussed with Dr. Manzanares, continue all current medical regimen. There is no new recommendations from neurology. Status: Chronic
--- NOTE | 2017-08-17 18:54 | CP.PCM.PN ---
<Rao Hays - Last Filed: 08/17/17 19:54> Subjective - Date & Time of Evaluation Date of Evaluation: 08/17/17 Time of Evaluation: 07:52 - Subjective Subjective: Medicine Progress Note for Dr. Sawyer's Service, Rao Hays PGY1 Systems Requirements Planner Patient was seen and examined at bedside. Per nursing, there were no acute events overnight. The patient reports feeling better. The patient is currently at his neurological baseline. The patient is tolerating diet with no complaints. The patient had one bowel movement last night that was normal in consistency.The patient denies any lightheadedness, skin changes, fevers, chills , nausea, vomiting, headaches, syncopal episodes, abdominal pain, chest pain, shortness of breath, constipation ,diarrhea, or any other complaints. Objective - Vital Signs/Intake and Output Vital Signs (last 24 hours): Temp Pulse Resp BP Pulse Ox 97.5 F L 69 20 118/76 98 08/17/17 16:05 08/17/17 16:05 08/17/17 16:05 08/17/17 16:05 08/17/17 16:05 - Medications Medications: Current Medications Aspirin (Ecotrin) 81 mg PO DAILY [facility] Last Admin: 08/17/17 10:43 Dose: 81 mg Donepezil HCl (Aricept) 10 mg PO HS [facility] Last Admin: 08/16/17 21:49 Dose: 10 mg Famotidine (Pepcid) 20 mg PO DAILY [facility] Last Admin: 08/17/17 10:43 Dose: 20 mg Folic Acid (Folic Acid) 1 mg PO DAILY [facility] Last Admin: 08/17/17 10:43 Dose: 1 mg Losartan Potassium (Cozaar) 25 mg PO DAILY [facility] Last Admin: 08/17/17 10:42 Dose: 25 mg Memantine (Namenda) 10 mg PO DAILY [facility] Last Admin: 08/17/17 10:43 Dose: 10 mg Rosuvastatin Calcium (Crestor) 2.5 mg PO HS [facility] Last Admin: 08/16/17 21:49 Dose: 2.5 mg - Labs Labs: 08/16/17 07:35 08/16/17 07:35 PT 11.8 SECONDS (9.7-12.2) 06/21/17 22:04 INR 1.1 06/21/17 22:04 APTT 32 SECONDS (21-34) 06/21/17 22:04 - Head Exam Head Exam: ATRAUMATIC, NORMAL INSPECTION, NORMOCEPHALIC - Eye Exam Eye Exam: EOMI, Normal appearance, PERRL. absent: Periorbital tenderness Pupil Exam: NORMAL ACCOMODATION, PERRL. absent: Irregular, Unequal - ENT Exam ENT Exam: Mucous Membranes Moist, Normal Exam, Normal Oropharynx - Neck Exam Neck Exam: Normal Inspection. absent: Lymphadenopathy, Thyromegaly - Respiratory Exam Respiratory Exam: Clear to Ausculation Bilateral, NORMAL BREATHING PATTERN. absent: Chest Wall Tenderness, Prolonged Expiratory Phase, Respiratory Distress - Cardiovascular Exam Cardiovascular Exam: REGULAR RHYTHM, RRR, +S1, +S2. absent: Gallop, Rubs - GI/Abdominal Exam GI & Abdominal Exam: Soft, Normal Bowel Sounds. absent: Rigid, Hyperactive Bowel Sounds - Extremities Exam Extremities Exam: Full ROM. absent: Joint Swelling, Pedal Edema, Tenderness - Back Exam Back Exam: NORMAL INSPECTION. absent: CVA tenderness (L), CVA tenderness (R), paraspinal tenderness - Neurological Exam Neurological Exam: Alert, Awake, CN II-XII Intact, Normal Gait, Oriented x3 - Psychiatric Exam Psychiatric exam: Normal Affect, Normal Mood. absent: Anxious, Depressed, Flat Affect - Skin Skin Exam: Dry, Intact, Normal Color, Warm Assessment and Plan - Assessment and Plan (Free Text) Plan: 1.) Family History of Alzheimer's Disease Early Onset of Dementia * Family Hx: patient had Alzheimer's Disease at age 71 * Patient was told by a neurologist he has early signs of dementia * Psych consult Dr. Valente --> help appreciated * CT scan of the head is negative * X-ray shows a apical granuloma * Neurology Dr. Manzanares-->help appreciated * Completed EEG 07/07/17 * Discussed patient may complete further workup as outpatient. * negative heavy metal screen * Repeat MRI 07/09: no acute intracranial abnormality. Mild chronic microangiopathic changes and mild age-related global parenchymal volume loss. Please note workup is in prior admission when patient eloped on discharge. * CT scan of the chest is negative and unremarkable * UDS is negative * UA: urine only + for ketones * Brain MRI: Limited motion degraded study. No evidence of acute hemorrhage or infarct. Minor chronic white matter ischemic changes are felt be present. Moderate generalized volume loss. * RPR: nonreactive * HIV: negative * TSH: within normal and repeat within normal * Folate: normal and repeat within normal * B12: normal and repeat within normal * Recommended to patient to follow-up with neurology outpatient and to establish care in the [facility] upon discharge Medications: * Aricept 10mg PO qHS * Namenda 10mg bid * Folic acid 1mg PO daily * Crestor 2.5mg PO HS 2.) Anemia-->Resolved * Within normal * Monitor 3.) Hypokalemia-->resolved * resolved 4) Abnormal Chest xray-->resolved * CT Chest: no acute pathology noted; official report in the computer 5.) Impaired glucose tolerance * Hgba1c: 5.7 * Will need check in one year for a1c to prevent over diabetes 6.) HTN-->Chronic * continue home Cozaar 25mg PO daily * Aspirin 81mg PO daily * 2 gram diet 7.) Prophylaxis * Pepcid 20mg PO BID * Patient is ambulatory. * SCDs * Appointed Guardian, Mr. Los Luke Carl, [address] [place] [address] ; follow-up meeting on 08/21/17 Disposition: State guardianship approved.Pending meting on 08/21/17 to discuss options available for the patient regarding discharge planning. <Tamera Sawyer V - Last Filed: 08/23/17 12:43> Objective - Vital Signs/Intake and Output Vital Signs (last 24 hours): Temp Pulse Resp BP Pulse Ox 98.1 F 77 20 101/65 97 08/23/17 07:33 08/23/17 07:33 08/23/17 07:33 08/23/17 07:33 08/23/17 07:33 Intake and Output: 08/23/17 08/23/17 06:59 18:59 Intake Total 300 Output Total 500 Balance -200 - Medications Medications: Current Medications Aspirin (Ecotrin) 81 mg PO DAILY [facility] Last Admin: 08/23/17 09:23 Dose: 81 mg Donepezil HCl (Aricept) 10 mg PO HS [facility] Last Admin: 08/22/17 21:03 Dose: 10 mg Famotidine (Pepcid) 20 mg PO DAILY [facility] Last Admin: 08/23/17 09:23 Dose: 20 mg Folic Acid (Folic Acid) 1 mg PO DAILY [facility] Last Admin: 08/23/17 09:23 Dose: 1 mg Losartan Potassium (Cozaar) 25 mg PO DAILY [facility] Last Admin: 08/23/17 09:23 Dose: 25 mg Memantine (Namenda) 10 mg PO DAILY [facility] Last Admin: 08/23/17 09:23 Dose: 10 mg Rosuvastatin Calcium (Crestor) 2.5 mg PO HS [facility] Last Admin: 08/22/17 21:03 Dose: 2.5 mg - Labs Labs: 08/20/17 06:06 08/20/17 06:06 PT 11.8 SECONDS (9.7-12.2) 06/21/17 22:04 INR 1.1 06/21/17 22:04 APTT 32 SECONDS (21-34) 06/21/17 22:04 Attending/Attestation - Attestation I have personally seen and examined this patient.: Yes I have fully participated in the care of the patient.: Yes I have reviewed all pertinent clinical information, including history, physical exam and plan: Yes Notes (Text): This is late computer entry for 08/17/17. Patient seen, examined, case discussed with medical researcher. Patient denies acute complaints. Patient still recognizes that Solitario Marie is the President and is quite frustrated by it. No new developments. Pending meeting on 08/21/17. Assessment/Plan: 1.) Family History of Alzheimer's Disease Early Onset of Dementia * Family Hx: patient had Alzheimer's Disease at age 71 * Patient was told by a neurologist he has early signs of dementia * Psych consult Dr. Valente --> help appreciated * CT scan of the head is negative * X-ray shows a apical granuloma * Neurology Dr. Manzanares-->help appreciated * Completed EEG 07/07/17 * Discussed patient may complete further workup as outpatient. * negative heavy metal screen * Repeat MRI 07/09: no acute intracranial abnormality. Mild chronic microangiopathic changes and mild age-related global parenchymal volume loss. Please note workup is in prior admission when patient eloped on discharge. * CT scan of the chest is negative and unremarkable * UDS is negative * UA: urine only + for ketones * Brain MRI: Limited motion degraded study. No evidence of acute hemorrhage or infarct. Minor chronic white matter ischemic changes are felt be present. Moderate generalized volume loss. * RPR: nonreactive * HIV: negative * TSH: within normal and repeat within normal * Folate: normal and repeat within normal * B12: normal and repeat within normal * Recommended to patient to follow-up with neurology outpatient and to establish care in the [facility] upon discharge Medications: * Aricept 10mg PO qHS * Namenda 10mg bid * Folic acid 1mg PO daily * Crestor 2.5mg PO HS 2.) Anemia-->Resolved * Within normal * Monitor 3.) Hypokalemia-->resolved * resolved 4) Abnormal Chest xray-->resolved * CT Chest: no acute pathology noted; official report in the computer 5.) Impaired glucose tolerance * Hgba1c: 5.7 * Will need check in one year for a1c to prevent over diabetes 6.) HTN-->Chronic * continue home Cozaar 25mg PO daily * Aspirin 81mg PO daily * 2 gram diet 7.) Prophylaxis * Pepcid 20mg PO BID * Patient is ambulatory. * SCDs * Appointed Guardian, Mr. Los Luke Carl, [address] [place] [address] ; follow-up meeting on 08/21/17 Disposition: F/u with new court appointed Guardian after meeting patient and social work 08/21/17 to see what options are available for the patient for discharge planning.
[2017-08-17] MEDS: Rosuvastatin Calcium 2.5 mg Tab PO SCH (21:46)
--- NOTE | 2017-08-18 07:38 | CP.PCM.PN ---
<Vidya Jean-Baptiste - Last Filed: 08/18/17 07:35> Subjective - Date & Time of Evaluation Date of Evaluation: 08/18/17 Time of Evaluation: 07:36 - Subjective Subjective: Medicine progress note for Dr. Sawyer's service Patient was seen and examined at bedside in the morning. Patient was in no acute distress. Patient feels well and has no complaints except he isn't sleeping well due to noise. Patient denies chest pain, abdominal pain, shortness of breath, nausea, vomiting, fevers, and leg pain. Objective - Vital Signs/Intake and Output Vital Signs (last 24 hours): Temp Pulse Resp BP Pulse Ox 98.8 F 81 16 121/78 99 08/18/17 00:00 08/18/17 00:00 08/18/17 00:00 08/18/17 00:00 08/18/17 00:00 - Medications Medications: Current Medications Aspirin (Ecotrin) 81 mg PO DAILY [facility] Last Admin: 08/17/17 10:43 Dose: 81 mg Donepezil HCl (Aricept) 10 mg PO [facility] Last Admin: 08/17/17 21:46 Dose: 10 mg Famotidine (Pepcid) 20 mg PO DAILY [facility] Last Admin: 08/17/17 10:43 Dose: 20 mg Folic Acid (Folic Acid) 1 mg PO DAILY [facility] Last Admin: 08/17/17 10:43 Dose: 1 mg Losartan Potassium (Cozaar) 25 mg PO DAILY [facility] Last Admin: 08/17/17 10:42 Dose: 25 mg Memantine (Namenda) 10 mg PO DAILY [facility] Last Admin: 08/17/17 10:43 Dose: 10 mg Rosuvastatin Calcium (Crestor) 2.5 mg PO [facility] Last Admin: 08/17/17 21:46 Dose: 2.5 mg - Labs Labs: 08/16/17 07:35 08/16/17 07:35 PT 11.8 SECONDS (9.7-12.2) 06/21/17 22:04 INR 1.1 06/21/17 22:04 APTT 32 SECONDS (21-34) 06/21/17 22:04 - Head Exam Head Exam: ATRAUMATIC, NORMAL INSPECTION - Eye Exam Eye Exam: EOMI, Normal appearance - ENT Exam ENT Exam: Mucous Membranes Moist - Respiratory Exam Respiratory Exam: Clear to Ausculation Bilateral, NORMAL BREATHING PATTERN. absent: Rales, Rhonchi, Wheezes, Respiratory Distress - Cardiovascular Exam Cardiovascular Exam: REGULAR RHYTHM, +S1, +S2 - GI/Abdominal Exam GI & Abdominal Exam: Soft, Normal Bowel Sounds. absent: Distended, Firm, Tenderness - Extremities Exam Extremities Exam: Normal Inspection. absent: Pedal Edema, Tenderness - Neurological Exam Neurological Exam: Alert, Awake - Psychiatric Exam Psychiatric exam: Normal Affect, Normal Mood - Skin Skin Exam: Dry, Intact, Normal Color, Warm Assessment and Plan (1) Dementia Status: Chronic (2) HTN (hypertension) Status: Chronic - Assessment and Plan (Free Text) Plan: 1.) Family History of Alzheimer's Disease Early Onset of Dementia * Family Hx: patient had Alzheimer's Disease at age 71 * Patient was told by a neurologist he has early signs of dementia * Psych consult Dr. Valente --> help appreciated * CT scan of the head is negative * X-ray shows a apical granuloma * Neurology Dr. Manzanares-->help appreciated * Completed EEG 07/07/17 * Discussed patient may complete further workup as outpatient. * negative heavy metal screen * Repeat MRI 07/09: no acute intracranial abnormality. Mild chronic microangiopathic changes and mild age-related global parenchymal volume loss. Please note workup is in prior admission when patient eloped on discharge. * CT scan of the chest is negative and unremarkable * UDS is negative * UA: urine only + for ketones * Brain MRI: Limited motion degraded study. No evidence of acute hemorrhage or infarct. Minor chronic white matter ischemic changes are felt be present. Moderate generalized volume loss. * RPR: nonreactive * HIV: negative * TSH: within normal and repeat within normal * Folate: normal and repeat within normal * B12: normal and repeat within normal * Recommended to patient to follow-up with neurology outpatient and to establish care in the [facility] upon discharge Medications: * Aricept 10mg PO qHS * Namenda 10mg bid * Folic acid 1mg PO daily * Crestor 2.5mg PO HS 2.) Anemia-->Resolved * Within normal * Monitor 3.) Hypokalemia-->resolved * resolved 4) Abnormal Chest xray-->resolved * CT Chest: no acute pathology noted; official report in the computer 5.) Impaired glucose tolerance * Hgba1c: 5.7 * Will need check in one year for a1c to prevent over diabetes 6.) HTN-->Chronic * continue home Cozaar 25mg PO daily * Aspirin 81mg PO daily * 2 gram diet 7.) Prophylaxis * Pepcid 20mg PO BID * Patient is ambulatory. * SCDs * Appointed Guardian, Mr. Los Henry, [address] [facility] [address] ; follow-up meeting on 08/21/17 Disposition: State guardianship approved.Pending meting on 08/21/17 to discuss options available for the patient regarding discharge planning. <Tamera Sawyer V - Last Filed: 08/23/17 12:44> Objective - Vital Signs/Intake and Output Vital Signs (last 24 hours): Temp Pulse Resp BP Pulse Ox 98.1 F 77 20 101/65 97 08/23/17 07:33 08/23/17 07:33 08/23/17 07:33 08/23/17 07:33 08/23/17 07:33 Intake and Output: 08/23/17 08/23/17 06:59 18:59 Intake Total 300 Output Total 500 Balance -200 - Medications Medications: Current Medications Aspirin (Ecotrin) 81 mg PO DAILY [facility] Last Admin: 08/23/17 09:23 Dose: 81 mg Donepezil HCl (Aricept) 10 mg PO HS [facility] Last Admin: 08/22/17 21:03 Dose: 10 mg Famotidine (Pepcid) 20 mg PO DAILY [facility] Last Admin: 08/23/17 09:23 Dose: 20 mg Folic Acid (Folic Acid) 1 mg PO DAILY [facility] Last Admin: 08/23/17 09:23 Dose: 1 mg Losartan Potassium (Cozaar) 25 mg PO DAILY [facility] Last Admin: 08/23/17 09:23 Dose: 25 mg Memantine (Namenda) 10 mg PO DAILY [facility] Last Admin: 08/23/17 09:23 Dose: 10 mg Rosuvastatin Calcium (Crestor) 2.5 mg PO HS [facility] Last Admin: 08/22/17 21:03 Dose: 2.5 mg - Labs Labs: 08/20/17 06:06 08/20/17 06:06 PT 11.8 SECONDS (9.7-12.2) 06/21/17 22:04 INR 1.1 06/21/17 22:04 APTT 32 SECONDS (21-34) 06/21/17 22:04 Attending/Attestation - Attestation I have personally seen and examined this patient.: Yes I have fully participated in the care of the patient.: Yes I have reviewed all pertinent clinical information, including history, physical exam and plan: Yes Notes (Text): This is late computer entry for 08/18/17. Patient seen, examined, case discussed with medical services manager. Patient denies acute complaints. No new developments. Patient is awaiting meeting with social work, guardian, and regulatory attorney on the Aug 21. Assessment/Plan: 1.) Family History of Alzheimer's Disease Early Onset of Dementia * Family Hx: patient had Alzheimer's Disease at age 71 * Patient was told by a neurologist he has early signs of dementia * Psych consult Dr. Valente --> help appreciated * CT scan of the head is negative * X-ray shows a apical granuloma * Neurology Dr. Manzanares-->help appreciated * Completed EEG 07/07/17 * Discussed patient may complete further workup as outpatient. * negative heavy metal screen * Repeat MRI 07/09: no acute intracranial abnormality. Mild chronic microangiopathic changes and mild age-related global parenchymal volume loss. Please note workup is in prior admission when patient eloped on discharge. * CT scan of the chest is negative and unremarkable * UDS is negative * UA: urine only + for ketones * Brain MRI: Limited motion degraded study. No evidence of acute hemorrhage or infarct. Minor chronic white matter ischemic changes are felt be present. Moderate generalized volume loss. * RPR: nonreactive * HIV: negative * TSH: within normal and repeat within normal * Folate: normal and repeat within normal * B12: normal and repeat within normal * Recommended to patient to follow-up with neurology outpatient and to establish care in the [facility] upon discharge Medications: * Aricept 10mg PO qHS * Namenda 10mg bid * Folic acid 1mg PO daily * Crestor 2.5mg PO HS 2.) Anemia-->Resolved * Within normal * Monitor 3.) Hypokalemia-->resolved * resolved 4) Abnormal Chest xray-->resolved * CT Chest: no acute pathology noted; official report in the computer 5.) Impaired glucose tolerance * Hgba1c: 5.7 * Will need check in one year for a1c to prevent over diabetes 6.) HTN-->Chronic * continue home Cozaar 25mg PO daily * Aspirin 81mg PO daily * 2 gram diet 7.) Prophylaxis * Pepcid 20mg PO BID * Patient is ambulatory. * SCDs * Appointed Guardian, Mr. Los Henry, [address] [facility] [address] ; follow-up meeting on 08/21/17 Disposition: F/u with new court appointed Guardian after meeting patient and social work 08/21/17 to see what options are available for the patient for discharge planning.
[2017-08-18] MEDS: Rosuvastatin Calcium 2.5 mg Tab PO SCH (21:14)
--- NOTE | 2017-08-19 03:55 | CP.PCM.PN ---
<Vidya Jean-Baptiste - Last Filed: 08/19/17 03:55> Subjective - Date & Time of Evaluation Date of Evaluation: 08/19/17 Time of Evaluation: 03:54 - Subjective Subjective: Medicine progress note for Dr. Sawyer's service Patient was seen and examined at bedside. Patient was in no acute distress. Patient feels well, but still has trouble sleeping due to noise. Patient denies chest pain, abdominal pain, shortness of breath, nausea, vomiting, fevers, and leg pain. Objective - Vital Signs/Intake and Output Vital Signs (last 24 hours): Temp Pulse Resp BP Pulse Ox 97.1 F L 71 20 120/75 98 08/19/17 00:18 08/19/17 00:18 08/19/17 00:18 08/19/17 00:18 08/19/17 00:18 Intake and Output: 08/18/17 08/19/17 18:59 06:59 Intake Total 450 Balance 450 - Medications Medications: Current Medications Aspirin (Ecotrin) 81 mg PO DAILY [facility] Last Admin: 08/18/17 09:52 Dose: 81 mg Donepezil HCl (Aricept) 10 mg PO HS [facility] Last Admin: 08/18/17 21:14 Dose: 10 mg Famotidine (Pepcid) 20 mg PO DAILY [facility] Last Admin: 08/18/17 09:51 Dose: 20 mg Folic Acid (Folic Acid) 1 mg PO DAILY [facility] Last Admin: 08/18/17 09:51 Dose: 1 mg Losartan Potassium (Cozaar) 25 mg PO DAILY [facility] Last Admin: 08/18/17 09:51 Dose: 25 mg Memantine (Namenda) 10 mg PO DAILY [facility] Last Admin: 08/18/17 09:51 Dose: 10 mg Rosuvastatin Calcium (Crestor) 2.5 mg PO HS [facility] Last Admin: 08/18/17 21:14 Dose: 2.5 mg - Labs Labs: 08/16/17 07:35 08/16/17 07:35 PT 11.8 SECONDS (9.7-12.2) 06/21/17 22:04 INR 1.1 06/21/17 22:04 APTT 32 SECONDS (21-34) 06/21/17 22:04 - Additional Findings Additional findings: - Head Exam Head Exam: ATRAUMATIC, NORMAL INSPECTION - Eye Exam Eye Exam: EOMI, Normal appearance - ENT Exam ENT Exam: Mucous Membranes Moist - Respiratory Exam Respiratory Exam: Clear to Ausculation Bilateral, NORMAL BREATHING PATTERN. absent: Rales, Rhonchi, Wheezes, Respiratory Distress - Cardiovascular Exam Cardiovascular Exam: REGULAR RHYTHM, +S1, +S2 - GI/Abdominal Exam GI & Abdominal Exam: Soft, Normal Bowel Sounds. absent: Distended, Firm, Tenderness - Extremities Exam Extremities Exam: Normal Inspection. absent: Pedal Edema, Tenderness - Neurological Exam Neurological Exam: Alert, Awake - Psychiatric Exam Psychiatric exam: Normal Affect, Normal Mood - Skin Skin Exam: Dry, Intact, Normal Color, Warm Assessment and Plan (1) Dementia Status: Chronic (2) HTN (hypertension) Status: Chronic - Assessment and Plan (Free Text) Plan: Plan: 1.) Family History of Alzheimer's Disease Early Onset of Dementia * Family Hx: patient had Alzheimer's Disease at age 71 * Patient was told by a neurologist he has early signs of dementia * Psych consult Dr. Valente --> help appreciated * CT scan of the head is negative * X-ray shows a apical granuloma * Neurology Dr. Manzanares-->help appreciated * Completed EEG 07/07/17 * Discussed patient may complete further workup as outpatient. * negative heavy metal screen * Repeat MRI 07/09: no acute intracranial abnormality. Mild chronic microangiopathic changes and mild age-related global parenchymal volume loss. Please note workup is in prior admission when patient eloped on discharge. * CT scan of the chest is negative and unremarkable * UDS is negative * UA: urine only + for ketones * Brain MRI: Limited motion degraded study. No evidence of acute hemorrhage or infarct. Minor chronic white matter ischemic changes are felt be present. Moderate generalized volume loss. * RPR: nonreactive * HIV: negative * TSH: within normal and repeat within normal * Folate: normal and repeat within normal * B12: normal and repeat within normal * Recommended to patient to follow-up with neurology outpatient and to establish care in the [facility] upon discharge Medications: * Aricept 10mg PO qHS * Namenda 10mg bid * Folic acid 1mg PO daily * Crestor 2.5mg PO HS 2.) Anemia-->Resolved * Within normal * Monitor 3.) Hypokalemia-->resolved * resolved 4) Abnormal Chest xray-->resolved * CT Chest: no acute pathology noted; official report in the computer 5.) Impaired glucose tolerance * Hgba1c: 5.7 * Will need check in one year for a1c to prevent diabetes 6.) HTN-->Chronic * continue home Cozaar 25mg PO daily * Aspirin 81mg PO daily * 2 gram diet 7.) Prophylaxis * Pepcid 20mg PO BID * Patient is ambulatory. * SCDs * Appointed Guardian, Mr. Los Henry, [address] [facility] [address] ; follow-up meeting on 08/21/17 Disposition: State guardianship approved.Pending meting on 08/21/17 to discuss options available for the patient regarding discharge planning. <Tamera Sawyer V - Last Filed: 08/23/17 12:45> Objective - Vital Signs/Intake and Output Vital Signs (last 24 hours): Temp Pulse Resp BP Pulse Ox 98.1 F 77 20 101/65 97 08/23/17 07:33 08/23/17 07:33 08/23/17 07:33 08/23/17 07:33 08/23/17 07:33 Intake and Output: 08/23/17 08/23/17 06:59 18:59 Intake Total 300 Output Total 500 Balance -200 - Medications Medications: Current Medications Aspirin (Ecotrin) 81 mg PO DAILY [facility] Last Admin: 08/23/17 09:23 Dose: 81 mg Donepezil HCl (Aricept) 10 mg PO [facility] Last Admin: 08/22/17 21:03 Dose: 10 mg Famotidine (Pepcid) 20 mg PO DAILY [facility] Last Admin: 08/23/17 09:23 Dose: 20 mg Folic Acid (Folic Acid) 1 mg PO DAILY [facility] Last Admin: 08/23/17 09:23 Dose: 1 mg Losartan Potassium (Cozaar) 25 mg PO DAILY [facility] Last Admin: 08/23/17 09:23 Dose: 25 mg Memantine (Namenda) 10 mg PO DAILY [facility] Last Admin: 08/23/17 09:23 Dose: 10 mg Rosuvastatin Calcium (Crestor) 2.5 mg PO HS [facility] Last Admin: 08/22/17 21:03 Dose: 2.5 mg - Labs Labs: 08/20/17 06:06 08/20/17 06:06 PT 11.8 SECONDS (9.7-12.2) 06/21/17 22:04 INR 1.1 06/21/17 22:04 APTT 32 SECONDS (21-34) 06/21/17 22:04 Attending/Attestation - Attestation I have personally seen and examined this patient.: Yes I have fully participated in the care of the patient.: Yes I have reviewed all pertinent clinical information, including history, physical exam and plan: Yes Notes (Text): This is a late computer entry for 08/19/17. Patient seen, examined, case discussed with medical reimbursement specialist. Patient denies acute complaints. No events overnight. Patient is awaiting social work meeting with guardian and pole setter on the 08/21. Assessment/Plan: 1.) Family History of Alzheimer's Disease Early Onset of Dementia * Family Hx: patient had Alzheimer's Disease at age 71 * Patient was told by a neurologist he has early signs of dementia * Psych consult Dr. Valente --> help appreciated * CT scan of the head is negative * X-ray shows a apical granuloma * Neurology Dr. Manzanares-->help appreciated * Completed EEG 07/07/17 * Discussed patient may complete further workup as outpatient. * negative heavy metal screen * Repeat MRI 07/09: no acute intracranial abnormality. Mild chronic microangiopathic changes and mild age-related global parenchymal volume loss. Please note workup is in prior admission when patient eloped on discharge. * CT scan of the chest is negative and unremarkable * UDS is negative * UA: urine only + for ketones * Brain MRI: Limited motion degraded study. No evidence of acute hemorrhage or infarct. Minor chronic white matter ischemic changes are felt be present. Moderate generalized volume loss. * RPR: nonreactive * HIV: negative * TSH: within normal and repeat within normal * Folate: normal and repeat within normal * B12: normal and repeat within normal * Recommended to patient to follow-up with neurology outpatient and to establish care in the [facility] upon discharge Medications: * Aricept 10mg PO qHS * Namenda 10mg bid * Folic acid 1mg PO daily * Crestor 2.5mg PO HS 2.) Anemia-->Resolved * Within normal * Monitor 3.) Hypokalemia-->resolved * resolved 4) Abnormal Chest xray-->resolved * CT Chest: no acute pathology noted; official report in the computer 5.) Impaired glucose tolerance * Hgba1c: 5.7 * Will need check in one year for a1c to prevent over diabetes 6.) HTN-->Chronic * continue home Cozaar 25mg PO daily * Aspirin 81mg PO daily * 2 gram diet 7.) Prophylaxis * Pepcid 20mg PO BID * Patient is ambulatory. * SCDs * Appointed Guardian, Mr. Los Luke Carl, [address] [facility] [address] ; follow-up meeting on 08/21/17 Disposition: F/u with new court appointed Guardian after meeting patient and social work 08/21/17 to see what options are available for the patient for discharge planning.
[2017-08-19] MEDS: Rosuvastatin Calcium 2.5 mg Tab PO SCH (21:29)
[2017-08-20 06:19] LABS: BASO % 0.4 % (0.0-2.0); EOS # 0.1 K/uL (0.0-0.7); EOS % 0.9 % (0.0-4.0); HEMOGLOBIN 13.8 g/dL (12.0-18.0); LYMPH # 1.5 K/uL (1.0-4.3); LYMPH % 22.8 % (20.0-40.0); MEAN CELL VOLUME 91.8 fL (80.0-94.0); MEAN CORPUSCULAR HEMOGLOBIN 31.7 pg (27.0-31.0); MEAN CORPUSCULAR HGB CONC 34.6 g/dL (33.0-37.0); MEAN PLATELET VOLUME 7.1 fL (7.2-11.7); MONO # 0.7 K/uL (0.0-0.8); MONO % 9.9 % (0.0-10.0); NEUT # 4.4 K/uL (1.8-7.0); NRBC % 0.1 % (0.0-2.0); RBC 4.34 Mil/uL (4.40-5.90); RED CELL DISTRIBUTION WIDTH 12.9 % (11.5-14.5); WHITE BLOOD COUNT 6.7 K/uL (4.8-10.8)
[2017-08-20 06:39] LABS: ALB/GLOB RATIO 1.3 (1.0-2.1); ALBUMIN 3.7 g/dL (3.5-5.0); ALT/SGPT 27 U/L (21-72); AST/SGOT 22 U/L (17-59); BLOOD UREA NITROGEN 17 mg/dL (9-20); CALCIUM 8.7 mg/dl (8.6-10.4); GFR AFRICAN-AMERICAN > 60; GFR NON-AFRICAN AMERICAN > 60
--- NOTE | 2017-08-20 17:56 | CP.PCM.PN ---
<Rao Hays - Last Filed: 08/20/17 17:56> Subjective - Date & Time of Evaluation Date of Evaluation: 08/20/17 Time of Evaluation: 05:54 - Subjective Subjective: Patient seen and examined at bedside. Per nursing no acute events occurred overnight. The patient denies any chest pain, abdominal pain, headaches, lightheadedness, fevers, chills, changes in vision, vomiting, dizziness or any other complaints. Objective - Vital Signs/Intake and Output Vital Signs (last 24 hours): Temp Pulse Resp BP Pulse Ox 98 F 68 20 104/67 98 08/20/17 15:45 08/20/17 15:45 08/20/17 15:45 08/20/17 15:45 08/20/17 15:45 Intake and Output: 08/20/17 08/20/17 06:59 18:59 Intake Total 700 780 Balance 700 780 - Medications Medications: Current Medications Aspirin (Ecotrin) 81 mg PO DAILY [facility] Last Admin: 08/20/17 09:36 Dose: 81 mg Donepezil HCl (Aricept) 10 mg PO [facility] Last Admin: 08/19/17 21:29 Dose: 10 mg Famotidine (Pepcid) 20 mg PO DAILY [facility] Last Admin: 08/20/17 09:36 Dose: 20 mg Folic Acid (Folic Acid) 1 mg PO DAILY [facility] Last Admin: 08/20/17 09:36 Dose: 1 mg Losartan Potassium (Cozaar) 25 mg PO DAILY [facility] Last Admin: 08/20/17 09:36 Dose: 25 mg Memantine (Namenda) 10 mg PO DAILY [facility] Last Admin: 08/20/17 09:36 Dose: 10 mg Rosuvastatin Calcium (Crestor) 2.5 mg PO [facility] Last Admin: 08/19/17 21:29 Dose: 2.5 mg - Labs Labs: 08/20/17 06:06 08/20/17 06:06 PT 11.8 SECONDS (9.7-12.2) 06/21/17 22:04 INR 1.1 06/21/17 22:04 APTT 32 SECONDS (21-34) 06/21/17 22:04 - Head Exam Head Exam: ATRAUMATIC, NORMAL INSPECTION, NORMOCEPHALIC - Eye Exam Eye Exam: EOMI, Normal appearance, PERRL. absent: Periorbital tenderness Pupil Exam: NORMAL ACCOMODATION, PERRL - ENT Exam ENT Exam: Mucous Membranes Moist, Normal Exam, Normal Oropharynx. absent: TM's Normal Bilaterally - Neck Exam Neck Exam: Normal Inspection. absent: Lymphadenopathy, Thyromegaly - Respiratory Exam Respiratory Exam: Clear to Ausculation Bilateral, NORMAL BREATHING PATTERN. absent: Chest Wall Tenderness, Prolonged Expiratory Phase, Wheezes, Respiratory Distress - Cardiovascular Exam Cardiovascular Exam: REGULAR RHYTHM, RRR, +S1, +S2. absent: Gallop, Rubs - GI/Abdominal Exam GI & Abdominal Exam: Soft, Normal Bowel Sounds. absent: Rigid - Extremities Exam Extremities Exam: Full ROM, Normal Inspection. absent: Joint Swelling, Pedal Edema - Back Exam Back Exam: NORMAL INSPECTION. absent: CVA tenderness (L), CVA tenderness (R), paraspinal tenderness - Neurological Exam Neurological Exam: Alert, Awake, CN II-XII Intact, Normal Gait - Psychiatric Exam Psychiatric exam: Normal Affect, Normal Mood - Skin Skin Exam: Dry, Intact, Normal Color, Warm Assessment and Plan - Assessment and Plan (Free Text) Plan: 1.) Family History of Alzheimer's Disease Early Onset of Dementia * Family Hx: patient had Alzheimer's Disease at age 71 * Patient was told by a neurologist he has early signs of dementia * Psych consult Dr. Valente --> help appreciated * CT scan of the head is negative * X-ray shows a apical granuloma * Neurology Dr. Manzanares-->help appreciated * Completed EEG 07/07/17 * Discussed patient may complete further workup as outpatient. * negative heavy metal screen * Repeat MRI 07/09: no acute intracranial abnormality. Mild chronic microangiopathic changes and mild age-related global parenchymal volume loss. Please note workup is in prior admission when patient eloped on discharge. * CT scan of the chest is negative and unremarkable * UDS is negative * UA: urine only + for ketones * Brain MRI: Limited motion degraded study. No evidence of acute hemorrhage or infarct. Minor chronic white matter ischemic changes are felt be present. Moderate generalized volume loss. * RPR: nonreactive * HIV: negative * TSH: within normal and repeat within normal * Folate: normal and repeat within normal * B12: normal and repeat within normal * Recommended to patient to follow-up with neurology outpatient and [facility] Medications: * Aricept 10mg PO qHS * Namenda 10mg bid * Folic acid 1mg PO daily * Crestor 2.5mg PO HS 2.) Anemia-->Resolved * Within normal * Monitor 3.) Hypokalemia-->resolved * resolved 4) Abnormal Chest xray-->resolved * CT Chest: no acute pathology noted; official report in the computer 5.) Impaired glucose tolerance * Hgba1c: 5.7 * Will need check in one year for a1c to prevent diabetes 6.) HTN-->Chronic * continue home Cozaar 25mg PO daily * Aspirin 81mg PO daily * 2 gram diet 7.) Prophylaxis * Pepcid 20mg PO BID * Patient is ambulatory. * SCDs * Appointed Guardian, Mr. Los Luke Carl, [address] [facility] [address] ; follow-up meeting on 08/21/17 Disposition: State guardianship approved.Pending meting on 08/21/17 to discuss options available for the patient regarding discharge planning. <Gary Damon - Last Filed: 08/20/17 19:58> Objective - Vital Signs/Intake and Output Vital Signs (last 24 hours): Temp Pulse Resp BP Pulse Ox 98 F 68 20 104/67 98 08/20/17 15:45 08/20/17 15:45 08/20/17 15:45 08/20/17 15:45 08/20/17 15:45 Intake and Output: 08/20/17 08/21/17 18:59 06:59 Intake Total 780 Balance 780 - Medications Medications: Current Medications Aspirin (Ecotrin) 81 mg PO DAILY [facility] Last Admin: 08/20/17 09:36 Dose: 81 mg Donepezil HCl (Aricept) 10 mg PO HS [facility] Last Admin: 08/19/17 21:29 Dose: 10 mg Famotidine (Pepcid) 20 mg PO DAILY [facility] Last Admin: 08/20/17 09:36 Dose: 20 mg Folic Acid (Folic Acid) 1 mg PO DAILY [facility] Last Admin: 08/20/17 09:36 Dose: 1 mg Losartan Potassium (Cozaar) 25 mg PO DAILY [facility] Last Admin: 08/20/17 09:36 Dose: 25 mg Memantine (Namenda) 10 mg PO DAILY [facility] Last Admin: 08/20/17 09:36 Dose: 10 mg Rosuvastatin Calcium (Crestor) 2.5 mg PO HS [facility] Last Admin: 08/19/17 21:29 Dose: 2.5 mg - Labs Labs: 08/20/17 06:06 08/20/17 06:06 PT 11.8 SECONDS (9.7-12.2) 06/21/17 22:04 INR 1.1 06/21/17 22:04 APTT 32 SECONDS (21-34) 06/21/17 22:04 Attending/Attestation - Attestation I have personally seen and examined this patient.: Yes I have fully participated in the care of the patient.: Yes I have reviewed all pertinent clinical information, including history, physical exam and plan: Yes Notes (Text): 08/20/17 19:57 Patient was seen and examined at 12:50 PM 08/20/17 358 A. Exam, assessment and plan were gone over with the resident. Pending Placment. Gary Damon D.O.
[2017-08-20] MEDS: Rosuvastatin Calcium 2.5 mg Tab PO SCH (21:13)
--- NOTE | 2017-08-21 10:18 | CP.PCM.PN ---
<Rao Hays - Last Filed: 08/21/17 19:48> Subjective - Date & Time of Evaluation Date of Evaluation: 08/21/17 Time of Evaluation: 08:16 - Subjective Subjective: Patient seen and examined at bedside. Per nursing no acute events occurred overnight. The patient remains at his neurological baseline. The patient is expected to have meeting with newly appointed guardian today. The patient denies any headaches, syncopal episodes, chest pain, shortness of breath, abdominal pain, constipation, diarrhea, or any other complaints. Objective - Vital Signs/Intake and Output Vital Signs (last 24 hours): Temp Pulse Resp BP Pulse Ox 98.1 F 84 20 108/81 99 08/21/17 08:45 08/21/17 08:45 08/21/17 08:45 08/21/17 08:45 08/21/17 08:45 Intake and Output: 08/21/17 08/21/17 06:59 18:59 Intake Total 550 Balance 550 - Medications Medications: Current Medications Aspirin (Ecotrin) 81 mg PO DAILY [facility] Last Admin: 08/21/17 09:27 Dose: 81 mg Donepezil HCl (Aricept) 10 mg PO HS [facility] Last Admin: 08/20/17 21:13 Dose: 10 mg Famotidine (Pepcid) 20 mg PO DAILY [facility] Last Admin: 08/21/17 09:28 Dose: 20 mg Folic Acid (Folic Acid) 1 mg PO DAILY [facility] Last Admin: 08/21/17 09:27 Dose: 1 mg Losartan Potassium (Cozaar) 25 mg PO DAILY [facility] Last Admin: 08/21/17 09:27 Dose: 25 mg Memantine (Namenda) 10 mg PO DAILY [facility] Last Admin: 08/21/17 09:28 Dose: 10 mg Rosuvastatin Calcium (Crestor) 2.5 mg PO HS [facility] Last Admin: 08/20/17 21:13 Dose: 2.5 mg - Labs Labs: 08/20/17 06:06 08/20/17 06:06 PT 11.8 SECONDS (9.7-12.2) 06/21/17 22:04 INR 1.1 06/21/17 22:04 APTT 32 SECONDS (21-34) 06/21/17 22:04 - Head Exam Head Exam: ATRAUMATIC, NORMAL INSPECTION, NORMOCEPHALIC - Eye Exam Eye Exam: EOMI, Normal appearance, PERRL. absent: Periorbital tenderness Pupil Exam: NORMAL ACCOMODATION, PERRL. absent: Irregular, Unequal - ENT Exam ENT Exam: Mucous Membranes Moist, Normal Exam, Normal Oropharynx - Neck Exam Neck Exam: Normal Inspection. absent: Lymphadenopathy, Thyromegaly - Respiratory Exam Respiratory Exam: Clear to Ausculation Bilateral, NORMAL BREATHING PATTERN. absent: Chest Wall Tenderness, Prolonged Expiratory Phase, Respiratory Distress - Cardiovascular Exam Cardiovascular Exam: REGULAR RHYTHM, RRR, +S1, +S2. absent: Gallop, Rubs - GI/Abdominal Exam GI & Abdominal Exam: Soft, Normal Bowel Sounds. absent: Rigid, Hyperactive Bowel Sounds - Extremities Exam Extremities Exam: Full ROM. absent: Joint Swelling, Pedal Edema, Tenderness - Back Exam Back Exam: NORMAL INSPECTION. absent: CVA tenderness (R), paraspinal tenderness - Neurological Exam Neurological Exam: Alert, Awake, CN II-XII Intact - Psychiatric Exam Psychiatric exam: Normal Affect, Normal Mood. absent: Depressed - Skin Skin Exam: Dry, Intact, Normal Color, Warm Assessment and Plan - Assessment and Plan (Free Text) Plan: 1.) Family History of Alzheimer's Disease Early Onset of Dementia * Family Hx: patient had Alzheimer's Disease at age 71 * Patient was told by a neurologist he has early signs of dementia * Psych consult Dr. Valente --> help appreciated * CT scan of the head is negative * X-ray shows a apical granuloma * Neurology Dr. Manzanares-->help appreciated * Completed EEG 07/07/17 * Discussed patient may complete further workup as outpatient. * negative heavy metal screen * Repeat MRI 07/09: no acute intracranial abnormality. Mild chronic microangiopathic changes and mild age-related global parenchymal volume loss. Please note workup is in prior admission when patient eloped on discharge. * CT scan of the chest is negative and unremarkable * UDS is negative * UA: urine only + for ketones * Brain MRI: Limited motion degraded study. No evidence of acute hemorrhage or infarct. Minor chronic white matter ischemic changes are felt be present. Moderate generalized volume loss. * RPR: nonreactive * HIV: negative * TSH: within normal and repeat within normal * Folate: normal and repeat within normal * B12: normal and repeat within normal * Recommended to patient to follow-up with neurology outpatient and [facility] Medications: * Aricept 10mg PO qHS * Namenda 10mg bid * Folic acid 1mg PO daily * Crestor 2.5mg PO HS 2.) Anemia-->Resolved * Within normal * Monitor 3.) Hypokalemia-->resolved * resolved 4) Abnormal Chest xray-->resolved * CT Chest: no acute pathology noted; official report in the computer 5.) Impaired glucose tolerance * Hgba1c: 5.7 * Will need check in one year for a1c to prevent diabetes 6.) HTN-->Chronic * continue home Cozaar 25mg PO daily * Aspirin 81mg PO daily * 2 gram diet 7.) Prophylaxis * Pepcid 20mg PO BID * Patient is ambulatory. * SCDs * Appointed Guardian, Mr. Los Herny, [address] [facility] [address] ; follow-up meeting on 08/21/17 Disposition: State guardianship approved. Meeting completed . Patient still awaiting placement. Will continue to follow. <Gary Damon - Last Filed: 08/21/17 19:50> Objective - Vital Signs/Intake and Output Vital Signs (last 24 hours): Temp Pulse Resp BP Pulse Ox 98.4 F 87 20 106/71 97 08/21/17 15:58 08/21/17 15:58 08/21/17 15:58 08/21/17 15:58 08/21/17 15:58 Intake and Output: 08/21/17 08/22/17 18:59 06:59 Intake Total 800 Balance 800 - Medications Medications: Current Medications Aspirin (Ecotrin) 81 mg PO DAILY [facility] Last Admin: 08/21/17 09:27 Dose: 81 mg Donepezil HCl (Aricept) 10 mg PO HS [facility] Last Admin: 08/20/17 21:13 Dose: 10 mg Famotidine (Pepcid) 20 mg PO DAILY [facility] Last Admin: 08/21/17 09:28 Dose: 20 mg Folic Acid (Folic Acid) 1 mg PO DAILY [facility] Last Admin: 08/21/17 09:27 Dose: 1 mg Losartan Potassium (Cozaar) 25 mg PO DAILY [facility] Last Admin: 08/21/17 09:27 Dose: 25 mg Memantine (Namenda) 10 mg PO DAILY [facility] Last Admin: 08/21/17 09:28 Dose: 10 mg Rosuvastatin Calcium (Crestor) 2.5 mg PO HS [facility] Last Admin: 08/20/17 21:13 Dose: 2.5 mg - Labs Labs: 08/20/17 06:06 08/20/17 06:06 PT 11.8 SECONDS (9.7-12.2) 06/21/17 22:04 INR 1.1 06/21/17 22:04 APTT 32 SECONDS (21-34) 06/21/17 22:04 Attending/Attestation - Attestation I have personally seen and examined this patient.: Yes I have fully participated in the care of the patient.: Yes I have reviewed all pertinent clinical information, including history, physical exam and plan: Yes Notes (Text): 08/21/17 19:49 Patient was seen and examined at 3:45 PM. Exam, assessment and plan were gone over with the resident. Awaiting placement from [place] State Guardian who met with patient earlier today. Gary Damon D.O.
[2017-08-21] MEDS: Rosuvastatin Calcium 2.5 mg Tab PO SCH (21:02)
--- NOTE | 2017-08-22 08:42 | CP.PCM.PN ---
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 Per nursing no acute events occurred overnight . Today the patient is reporting tolerating diet with no complaints. The patient also reports passing his bowels with no complaints. The patient denies any chest pain, abdominal pain, shortness of breath, fevers, chills, lightheadedness, dizziness, changes in vision, or any other complaints. Objective - Vital Signs/Intake and Output Vital Signs (last 24 hours): Temp Pulse Resp BP Pulse Ox 98.2 F 81 20 105/75 97 08/21/17 23:49 08/21/17 23:49 08/21/17 23:49 08/21/17 23:49 08/21/17 23:49 Intake and Output: 08/22/17 08/22/17 06:59 18:59 Intake Total 540 Output Total 600 Balance -60 - Medications Medications: Current Medications Aspirin (Ecotrin) 81 mg PO DAILY [facility] Last Admin: 08/21/17 09:27 Dose: 81 mg Donepezil HCl (Aricept) 10 mg PO HS [facility] Last Admin: 08/21/17 21:02 Dose: 10 mg Famotidine (Pepcid) 20 mg PO DAILY [facility] Last Admin: 08/21/17 09:28 Dose: 20 mg Folic Acid (Folic Acid) 1 mg PO DAILY [facility] Last Admin: 08/21/17 09:27 Dose: 1 mg Losartan Potassium (Cozaar) 25 mg PO DAILY [facility] Last Admin: 08/21/17 09:27 Dose: 25 mg Memantine (Namenda) 10 mg PO DAILY [facility] Last Admin: 08/21/17 09:28 Dose: 10 mg Rosuvastatin Calcium (Crestor) 2.5 mg PO HS [facility] Last Admin: 08/21/17 21:02 Dose: 2.5 mg - Labs Labs: 08/20/17 06:06 08/20/17 06:06 PT 11.8 SECONDS (9.7-12.2) 06/21/17 22:04 INR 1.1 06/21/17 22:04 APTT 32 SECONDS (21-34) 06/21/17 22:04 - Head Exam Head Exam: ATRAUMATIC, NORMAL INSPECTION, NORMOCEPHALIC - Eye Exam Eye Exam: EOMI, Normal appearance, PERRL. absent: Periorbital tenderness Pupil Exam: NORMAL ACCOMODATION, PERRL. absent: Irregular, Unequal - ENT Exam ENT Exam: Mucous Membranes Moist, Normal Oropharynx - Neck Exam Neck Exam: absent: Lymphadenopathy, Thyromegaly - Respiratory Exam Respiratory Exam: Clear to Ausculation Bilateral, NORMAL BREATHING PATTERN. absent: Chest Wall Tenderness, Prolonged Expiratory Phase, Respiratory Distress - Cardiovascular Exam Cardiovascular Exam: REGULAR RHYTHM, RRR, +S1, +S2. absent: Gallop, Rubs - GI/Abdominal Exam GI & Abdominal Exam: Soft, Normal Bowel Sounds. absent: Rigid, Hyperactive Bowel Sounds - Neurological Exam Neurological Exam: Alert, Awake, CN II-XII Intact, Normal Gait - Psychiatric Exam Psychiatric exam: Normal Affect, Normal Mood. absent: Depressed, Flat Affect - Skin Skin Exam: Dry, Intact Assessment and Plan - Assessment and Plan (Free Text) Plan: 1.) Family History of Alzheimer's Disease Early Onset of Dementia * Family Hx: patient had Alzheimer's Disease at age 71 * Patient was told by a neurologist he has early signs of dementia * Psych consult Dr. Valente --> help appreciated * CT scan of the head is negative * X-ray shows a apical granuloma * Neurology Dr. Manzanares-->help appreciated * Completed EEG 07/07/17 * Discussed patient may complete further workup as outpatient. * negative heavy metal screen * Repeat MRI 07/09: no acute intracranial abnormality. Mild chronic microangiopathic changes and mild age-related global parenchymal volume loss. Please note workup is in prior admission when patient eloped on discharge. * CT scan of the chest is negative and unremarkable * UDS is negative * UA: urine only + for ketones * Brain MRI: Limited motion degraded study. No evidence of acute hemorrhage or infarct. Minor chronic white matter ischemic changes are felt be present. Moderate generalized volume loss. * RPR: nonreactive * HIV: negative * TSH: within normal and repeat within normal * Folate: normal and repeat within normal * B12: normal and repeat within normal * Recommended to patient to follow-up with neurology outpatient and to establish care in the [facility] upon discharge Medications: * Aricept 10mg PO qHS * Namenda 10mg bid * Folic acid 1mg PO daily * Crestor 2.5mg PO HS 2.) Anemia-->Resolved * Within normal * Monitor 3.) Hypokalemia-->resolved * resolved 4) Abnormal Chest xray-->resolved * CT Chest: no acute pathology noted; official report in the computer 5.) Impaired glucose tolerance * Hgba1c: 5.7 * Will need check in one year for a1c to prevent diabetes 6.) HTN-->Chronic * continue home Cozaar 25mg PO daily * Aspirin 81mg PO daily * 2 gram diet 7.) Prophylaxis * Pepcid 20mg PO BID * Patient is ambulatory. * SCDs * Appointed Guardian, Mr. Los Henry, [address] [facility] [address] [facility] [address] ; follow-up meeting on 08/21/17 Disposition: State guardianship approved. Meeting completed . Patient still awaiting placement. Will continue to follow. <Gary Damon - Last Filed: 08/22/17 19:20> Objective - Vital Signs/Intake and Output Vital Signs (last 24 hours): Temp Pulse Resp BP Pulse Ox 98.6 F 96 H 20 117/85 97 08/22/17 16:00 08/22/17 16:00 08/22/17 16:00 08/22/17 16:00 08/22/17 16:00 Intake and Output: 08/22/17 08/23/17 18:59 06:59 Intake Total 860 Balance 860 - Medications Medications: Current Medications Aspirin (Ecotrin) 81 mg PO DAILY [facility] Last Admin: 08/22/17 09:36 Dose: 81 mg Donepezil HCl (Aricept) 10 mg PO HS [facility] Last Admin: 08/21/17 21:02 Dose: 10 mg Famotidine (Pepcid) 20 mg PO DAILY [facility] Last Admin: 08/22/17 09:37 Dose: 20 mg Folic Acid (Folic Acid) 1 mg PO DAILY [facility] Last Admin: 08/22/17 09:36 Dose: 1 mg Losartan Potassium (Cozaar) 25 mg PO DAILY [facility] Last Admin: 08/22/17 09:36 Dose: 25 mg Memantine (Namenda) 10 mg PO DAILY [facility] Last Admin: 08/22/17 09:37 Dose: 10 mg Rosuvastatin Calcium (Crestor) 2.5 mg PO HS [facility] Last Admin: 08/21/17 21:02 Dose: 2.5 mg - Labs Labs: 08/20/17 06:06 08/20/17 06:06 PT 11.8 SECONDS (9.7-12.2) 06/21/17 22:04 INR 1.1 06/21/17 22:04 APTT 32 SECONDS (21-34) 06/21/17 22:04 Attending/Attestation - Attestation I have personally seen and examined this patient.: Yes I have fully participated in the care of the patient.: Yes I have reviewed all pertinent clinical information, including history, physical exam and plan: Yes Notes (Text): 08/22/17 19:19 Patient was seen and examined at 1:00 PM 08/22/17 358 A Exam, assessment and plan were thoroughly gone over with the resident. HEENT, Cardio, Resp, GI, Ext, CN exams were unremarkable Assessments: 1). Dimentia: Aricept, Namenda, Folic Acid, Crestor, ASA 2). Anemia: resolved 3). Hypokalemia: resolved 4). Abnormal Chest X Ray (Granuloma?): CT Chest was unremarkable 5). Impaired Fasting Glucose: HgBA1C was 5.7 6). HTN: Cozaar 7). Prophylaxis: Pepcid, SCD,Heparin, 1:1 observation for elopement risk [place] State Guardian met with patient on 08/21/17 and awaiting placement. Gary Damon D.O.
[2017-08-22] MEDS: Rosuvastatin Calcium 2.5 mg Tab PO SCH (21:03)
--- NOTE | 2017-08-23 11:22 | CP.PCM.PN ---
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 Per nursing no acute events occurred overnight . Today the patient is reporting tolerating diet with no complaints. The patient also reports passing his bowels with no complaints. Patient can still recall the President is Trump and at his baseline. The patient denies any chest pain, abdominal pain, shortness of breath, fevers, chills, lightheadedness , dizziness, changes in vision, or any other complaints. Objective - Vital Signs/Intake and Output Vital Signs (last 24 hours): Temp Pulse Resp BP Pulse Ox 98.1 F 77 20 101/65 97 08/23/17 07:33 08/23/17 07:33 08/23/17 07:33 08/23/17 07:33 08/23/17 07:33 Intake and Output: 08/23/17 08/23/17 06:59 18:59 Intake Total 300 Output Total 500 Balance -200 - Medications Medications: Current Medications Aspirin (Ecotrin) 81 mg PO DAILY [facility] Last Admin: 08/23/17 09:23 Dose: 81 mg Donepezil HCl (Aricept) 10 mg PO [facility] Last Admin: 08/22/17 21:03 Dose: 10 mg Famotidine (Pepcid) 20 mg PO DAILY [facility] Last Admin: 08/23/17 09:23 Dose: 20 mg Folic Acid (Folic Acid) 1 mg PO DAILY [facility] Last Admin: 08/23/17 09:23 Dose: 1 mg Losartan Potassium (Cozaar) 25 mg PO DAILY [facility] Last Admin: 08/23/17 09:23 Dose: 25 mg Memantine (Namenda) 10 mg PO DAILY [facility] Last Admin: 08/23/17 09:23 Dose: 10 mg Rosuvastatin Calcium (Crestor) 2.5 mg PO [facility] Last Admin: 08/22/17 21:03 Dose: 2.5 mg - Labs Labs: 08/20/17 06:06 08/20/17 06:06 PT 11.8 SECONDS (9.7-12.2) 06/21/17 22:04 INR 1.1 06/21/17 22:04 APTT 32 SECONDS (21-34) 06/21/17 22:04 Assessment and Plan - Assessment and Plan (Free Text) Plan: 1.) Family History of Alzheimer's Disease Early Onset of Dementia * Family Hx: patient had Alzheimer's Disease at age 71 * Patient was told by a neurologist he has early signs of dementia * Psych consult Dr. Valente --> help appreciated * CT scan of the head is negative * X-ray shows a apical granuloma * Neurology Dr. Manzanares-->help appreciated * Completed EEG 07/07/17 * Discussed patient may complete further workup as outpatient. * negative heavy metal screen * Repeat MRI 07/09: no acute intracranial abnormality. Mild chronic microangiopathic changes and mild age-related global parenchymal volume loss. Please note workup is in prior admission when patient eloped on discharge. * CT scan of the chest is negative and unremarkable * UDS is negative * UA: urine only + for ketones * Brain MRI: Limited motion degraded study. No evidence of acute hemorrhage or infarct. Minor chronic white matter ischemic changes are felt be present. Moderate generalized volume loss. * RPR: nonreactive * HIV: negative * TSH: within normal and repeat within normal * Folate: normal and repeat within normal * B12: normal and repeat within normal * Recommended to patient to follow-up with neurology outpatient and to establish care in the [facility] upon discharge Medications: * Aricept 10mg PO qHS * Namenda 10mg bid * Folic acid 1mg PO daily * Crestor 2.5mg PO HS 2.) Anemia-->Resolved * Within normal * Monitor 3.) Hypokalemia-->resolved * resolved 4) Abnormal Chest xray-->resolved * CT Chest: no acute pathology noted; official report in the computer 5.) Impaired glucose tolerance * Hgba1c: 5.7 * Will need check in one year for a1c to prevent diabetes 6.) HTN-->Chronic * continue home Cozaar 25mg PO daily * Aspirin 81mg PO daily * 2 gram diet 7.) Prophylaxis * Pepcid 20mg PO BID * Patient is ambulatory. * SCDs * Appointed Guardian, Mr. Los Luke Carl, [address] [facility] [address] [place] [address] ; follow-up meeting on 08/21/17 Disposition: State guardianship approved. Meeting completed . Patient still awaiting placement. Will continue to follow. <Gary Damon - Last Filed: 08/23/17 20:04> Objective - Vital Signs/Intake and Output Vital Signs (last 24 hours): Temp Pulse Resp BP Pulse Ox 98.1 F 78 20 102/69 95 08/23/17 16:14 08/23/17 16:14 08/23/17 16:14 08/23/17 16:14 08/23/17 16:14 Intake and Output: 08/23/17 08/24/17 18:59 06:59 Intake Total 800 Balance 800 - Medications Medications: Current Medications Aspirin (Ecotrin) 81 mg PO DAILY [facility] Last Admin: 08/23/17 09:23 Dose: 81 mg Donepezil HCl (Aricept) 10 mg PO HS [facility] Last Admin: 08/22/17 21:03 Dose: 10 mg Famotidine (Pepcid) 20 mg PO DAILY [facility] Last Admin: 08/23/17 09:23 Dose: 20 mg Folic Acid (Folic Acid) 1 mg PO DAILY [facility] Last Admin: 08/23/17 09:23 Dose: 1 mg Losartan Potassium (Cozaar) 25 mg PO DAILY [facility] Last Admin: 08/23/17 09:23 Dose: 25 mg Memantine (Namenda) 10 mg PO DAILY [facility] Last Admin: 08/23/17 09:23 Dose: 10 mg Rosuvastatin Calcium (Crestor) 2.5 mg PO HS [facility] Last Admin: 08/22/17 21:03 Dose: 2.5 mg - Labs Labs: 08/20/17 06:06 08/20/17 06:06 PT 11.8 SECONDS (9.7-12.2) 06/21/17 22:04 INR 1.1 06/21/17 22:04 APTT 32 SECONDS (21-34) 06/21/17 22:04 Attending/Attestation - Attestation I have personally seen and examined this patient.: Yes I have fully participated in the care of the patient.: Yes I have reviewed all pertinent clinical information, including history, physical exam and plan: Yes Notes (Text): 08/23/17 20:03 Patient was seen and examined at 2:00 PM 08/23/17 358 A Exam, assessment and plan were thoroughly gone over with the resident. HEENT, Cardio, Resp, GI, Ext, CN exams were unremarkable Assessments: 1). Dimentia: Aricept, Namenda, Folic Acid, Crestor, ASA 2). Anemia: resolved 3). Hypokalemia: resolved 4). Abnormal Chest X Ray (Granuloma?): CT Chest was unremarkable 5). Impaired Fasting Glucose: HgBA1C was 5.7 6). HTN: Cozaar 7). Prophylaxis: Pepcid, SCD,Heparin, 1:1 observation for elopement risk [place] State Guardian met with patient on 08/21/17 and awaiting placement. Gary Damon D.O.
[2017-08-23] MEDS: Rosuvastatin Calcium 2.5 mg Tab PO SCH (21:16)
--- NOTE | 2017-08-24 09:02 | CP.PCM.PN ---
<Rao Hays - Last Filed: 08/24/17 18:49> Subjective - Date & Time of Evaluation Date of Evaluation: 08/24/17 Time of Evaluation: 06:02 - Subjective Subjective: Rao Rae Healthcare Account Manager-PGY1 Patient seen and examined at bedside. Per nursing no acute events occurred overnight . Today the patient is reporting tolerating diet with no complaints. The patient also reports passing his bowels with no complaints. Patient is reporting a non-productive cough today that started last night.Patient can still recall the President is Trump and at his baseline. The patient denies any chest pain, abdominal pain, shortness of breath, fevers, chills, lightheadedness , dizziness, changes in vision, or any other complaints. Objective - Vital Signs/Intake and Output Vital Signs (last 24 hours): Temp Pulse Resp BP Pulse Ox 97.8 F 75 20 130/85 96 08/24/17 07:22 08/24/17 07:22 08/24/17 07:22 08/24/17 07:22 08/24/17 07:22 Intake and Output: 08/24/17 08/24/17 06:59 18:59 Intake Total 500 240 Balance 500 240 - Medications Medications: Current Medications Aspirin (Ecotrin) 81 mg PO DAILY [facility] Last Admin: 08/23/17 09:23 Dose: 81 mg Donepezil HCl (Aricept) [address] [facility] Last Admin: 08/23/17 21:16 Dose: 10 mg Famotidine (Pepcid) 20 mg PO DAILY [facility] Last Admin: 08/23/17 09:23 Dose: 20 mg Folic Acid (Folic Acid) 1 mg PO DAILY [facility] Last Admin: 08/23/17 09:23 Dose: 1 mg Losartan Potassium (Cozaar) 25 mg PO DAILY [facility] Last Admin: 08/23/17 09:23 Dose: 25 mg Memantine (Namenda) 10 mg PO DAILY [facility] Last Admin: 08/23/17 09:23 Dose: 10 mg Rosuvastatin Calcium (Crestor) 2.[address] [facility] Last Admin: 08/23/17 21:16 Dose: 2.5 mg - Labs Labs: 08/20/17 06:06 08/20/17 06:06 PT 11.8 SECONDS (9.7-12.2) 06/21/17 22:04 INR 1.1 06/21/17 22:04 APTT 32 SECONDS (21-34) 06/21/17 22:04 - Head Exam Head Exam: ATRAUMATIC, NORMAL INSPECTION, NORMOCEPHALIC - Eye Exam Eye Exam: EOMI, Normal appearance, PERRL. absent: Periorbital tenderness Pupil Exam: NORMAL ACCOMODATION, PERRL. absent: Irregular, Unequal - ENT Exam ENT Exam: Mucous Membranes Moist, Normal Oropharynx - Neck Exam Neck Exam: Full ROM, Normal Inspection. absent: Lymphadenopathy, Thyromegaly - Respiratory Exam Respiratory Exam: Clear to Ausculation Bilateral, NORMAL BREATHING PATTERN. absent: Chest Wall Tenderness, Prolonged Expiratory Phase, Respiratory Distress - Cardiovascular Exam Cardiovascular Exam: REGULAR RHYTHM, +S1, +S2 - GI/Abdominal Exam GI & Abdominal Exam: Soft, Normal Bowel Sounds. absent: Hyperactive Bowel Sounds - Extremities Exam Extremities Exam: Full ROM, Normal Inspection. absent: Joint Swelling, Pedal Edema - Back Exam Back Exam: NORMAL INSPECTION. absent: CVA tenderness (L), CVA tenderness (R), paraspinal tenderness - Neurological Exam Neurological Exam: Alert, Awake, CN II-XII Intact - Psychiatric Exam Psychiatric exam: Normal Affect, Normal Mood - Skin Skin Exam: Dry, Intact, Normal Color, Warm Assessment and Plan - Assessment and Plan (Free Text) Plan: 1.) Family History of Alzheimer's Disease Early Onset of Dementia * Family Hx: patient had Alzheimer's Disease at age 71 * Patient was told by a neurologist he has early signs of dementia * Psych consult Dr. Valente --> help appreciated * CT scan of the head is negative * X-ray shows a apical granuloma * Neurology Dr. Manzanares-->help appreciated * Completed EEG 07/07/17 * Discussed patient may complete further workup as outpatient. * negative heavy metal screen * Repeat MRI 07/09: no acute intracranial abnormality. Mild chronic microangiopathic changes and mild age-related global parenchymal volume loss. Please note workup is in prior admission when patient eloped on discharge. * CT scan of the chest is negative and unremarkable * UDS is negative * UA: urine only + for ketones * Brain MRI: Limited motion degraded study. No evidence of acute hemorrhage or infarct. Minor chronic white matter ischemic changes are felt be present. Moderate generalized volume loss. * RPR: nonreactive * HIV: negative * TSH: within normal and repeat within normal * Folate: normal and repeat within normal * B12: normal and repeat within normal * Recommended to patient to follow-up with neurology outpatient and to establish care in the [facility] upon discharge Medications: * Aricept 10mg PO qHS * Namenda 10mg bid * Folic acid 1mg PO daily * Crestor 2.5mg PO HS 2.) Anemia-->Resolved * Within normal * Monitor 3) Cough -Reports for the past two days. -Afebrile and no leukocytosis. Will continue to monitor. 4) Hypokalemia-->resolved * resolved 5) Abnormal Chest xray-->resolved * CT Chest: no acute pathology noted; official report in the computer 6) Impaired glucose tolerance * Hgba1c: 5.7 * Will need check in one year for a1c to prevent diabetes 7) HTN-->Chronic * continue home Cozaar 25mg PO daily * Aspirin 81mg PO daily * 2 gram diet 8) Prophylaxis * Pepcid 20mg PO BID * Patient is ambulatory. * SCDs * Appointed Pipe Straightener: Court appointed, Mr. Los Henry, [address] [facility] [address] [place] [address] ; Temporary Guardian is Dangelo Thomas. Disposition: State guardianship approved. Meeting completed . Patient still awaiting placement. Will continue to follow. <Gary Damon - Last Filed: 08/24/17 19:40> Objective - Vital Signs/Intake and Output Vital Signs (last 24 hours): Temp Pulse Resp BP Pulse Ox 97.6 F 78 20 99/67 L 99 08/24/17 15:00 08/24/17 15:00 08/24/17 15:00 08/24/17 15:00 08/24/17 15:00 Intake and Output: 08/24/17 08/25/17 18:59 06:59 Intake Total 740 Balance 740 - Medications Medications: Current Medications Aspirin (Ecotrin) 81 mg PO DAILY [facility] Last Admin: 08/24/17 10:09 Dose: 81 mg Donepezil HCl (Aricept) 10 mg PO HS [facility] Last Admin: 08/23/17 21:16 Dose: 10 mg Famotidine (Pepcid) 20 mg PO DAILY [facility] Last Admin: 08/24/17 10:09 Dose: 20 mg Folic Acid (Folic Acid) 1 mg PO DAILY [facility] Last Admin: 08/24/17 10:09 Dose: 1 mg Losartan Potassium (Cozaar) 25 mg PO DAILY [facility] Last Admin: 08/24/17 10:09 Dose: 25 mg Memantine (Namenda) 10 mg PO DAILY [facility] Last Admin: 08/24/17 10:09 Dose: 10 mg Rosuvastatin Calcium (Crestor) 2.5 mg PO HS [facility] Last Admin: 08/23/17 21:16 Dose: 2.5 mg - Labs Labs: 08/20/17 06:06 08/20/17 06:06 PT 11.8 SECONDS (9.7-12.2) 06/21/17 22:04 INR 1.1 06/21/17 22:04 APTT 32 SECONDS (21-34) 06/21/17 22:04 Attending/Attestation - Attestation I have personally seen and examined this patient.: Yes I have fully participated in the care of the patient.: Yes I have reviewed all pertinent clinical information, including history, physical exam and plan: Yes Notes (Text): 08/24/17 19:35 Patient was seen and examined at 1:00 PM 08/24/17 358 A Exam, assessment and plan were gone over with the resident Upon FULL CECELIA Complained of scratchiness in back of throat for the past 2 days but did not mention it as he though that it may go away but has not and states that this usually happens before he develops a URI. NO dysphagia/odynopahgia NO soreness in throat NO cough NO sinus/nasal congestion NO fever/chills NO muscle aches/pains NO joint pain NO chest pain/palpations NO SOB NO abdominal pain NO n/v/d/c NO burning pain with urination NO CHAMPION Exam: General: AAOX3, NAD HEENT: NCA, EOMI, PERRLA, NO cervical/supraclavicular/submandibular lymphadenopathy, NO pharyngeal erythema/exudate, Nasal Turbinates are nonerythematous/nonedematous, Oral Mucosa is moist Cardio: NS1 and NS2, NO M/R/G Resp: CTA B/L, NO R/R/W GI: BSx4, Soft, NT, NO HSM, NO guarding/rebound tenderness Ext: Pulses are strong and equal, Capillary Refill is 2 seconds, NO edema Neuro: CN II through XII are grossly intact Assessment and Plan: 1). Dimentia: Aricept, Namenda, Folic Acid, Crestor, ASA 2). Anemia: resolved 3). Hypokalemia: resolved 4). Abnormal Chest X Ray (Granuloma?): CT Chest was unremarkable 5). Impaired Fasting Glucose: HgBA1C was 5.7 6). HTN: Cozaar 7). Prophylaxis: Pepcid, SCD,Heparin, 1:1 observation for elopement risk Monitor patient for URI. Patient met with his [facility] Appointed Guardian 08/21/17 and awaiting placement. Gary Damon D.O.
[2017-08-24] MEDS: Rosuvastatin Calcium 2.5 mg Tab PO SCH (21:32)
--- NOTE | 2017-08-25 03:04 | CP.PCM.PN ---
<Angel Kelley - Last Filed: 08/25/17 07:24> Subjective - Date & Time of Evaluation Date of Evaluation: 08/25/17 Time of Evaluation: 06:10 - Subjective Subjective: Medicine progress note for Dr. Barbara Damon Patient seen and examined. Patient reports no new complaints at this time. Objective - Vital Signs/Intake and Output Vital Signs (last 24 hours): Temp Pulse Resp BP Pulse Ox 97.4 F L 71 20 103/82 98 08/25/17 00:19 08/25/17 00:19 08/25/17 00:19 08/25/17 00:19 08/25/17 00:19 Intake and Output: 08/24/17 08/25/17 18:59 06:59 Intake Total 740 600 Balance 740 600 - Medications Medications: Current Medications Aspirin (Ecotrin) 81 mg PO DAILY [facility] Last Admin: 08/24/17 10:09 Dose: 81 mg Donepezil HCl (Aricept) 10 mg PO [facility] Last Admin: 08/24/17 21:32 Dose: 10 mg Famotidine (Pepcid) 20 mg PO DAILY [facility] Last Admin: 08/24/17 10:09 Dose: 20 mg Folic Acid (Folic Acid) 1 mg PO DAILY [facility] Last Admin: 08/24/17 10:09 Dose: 1 mg Losartan Potassium (Cozaar) 25 mg PO DAILY [facility] Last Admin: 08/24/17 10:09 Dose: 25 mg Memantine (Namenda) 10 mg PO DAILY [facility] Last Admin: 08/24/17 10:09 Dose: 10 mg Rosuvastatin Calcium (Crestor) 2.5 mg PO [facility] Last Admin: 08/24/17 21:32 Dose: 2.5 mg - Labs Labs: 08/20/17 06:06 08/20/17 06:06 PT 11.8 SECONDS (9.7-12.2) 06/21/17 22:04 INR 1.1 06/21/17 22:04 APTT 32 SECONDS (21-34) 06/21/17 22:04 - Head Exam Head Exam: ATRAUMATIC, NORMOCEPHALIC - Eye Exam Eye Exam: EOMI, Normal appearance - ENT Exam ENT Exam: Mucous Membranes Moist - Respiratory Exam Respiratory Exam: Clear to Ausculation Bilateral, NORMAL BREATHING PATTERN. absent: Rales, Rhonchi, Wheezes - Cardiovascular Exam Cardiovascular Exam: REGULAR RHYTHM, +S1, +S2 - GI/Abdominal Exam GI & Abdominal Exam: Soft, Normal Bowel Sounds - Extremities Exam Extremities Exam: absent: Tenderness - Neurological Exam Neurological Exam: Alert, Awake - Psychiatric Exam Psychiatric exam: Normal Affect, Normal Mood - Skin Skin Exam: Dry, Warm Assessment and Plan - Assessment and Plan (Free Text) Plan: 1.) Family History of Alzheimer's Disease Early Onset of Dementia * Family Hx: patient had Alzheimer's Disease at age 71 * Patient was told by a neurologist he has early signs of dementia * Psych consult Dr. Valente --> help appreciated * CT scan of the head is negative * X-ray shows a apical granuloma * Neurology Dr. Manzanares-->help appreciated * Completed EEG 07/07/17 * Discussed patient may complete further workup as outpatient. * negative heavy metal screen * Repeat MRI 07/09: no acute intracranial abnormality. Mild chronic microangiopathic changes and mild age-related global parenchymal volume loss. Please note workup is in prior admission when patient eloped on discharge. * CT scan of the chest is negative and unremarkable * UDS is negative * UA: urine only + for ketones * Brain MRI: Limited motion degraded study. No evidence of acute hemorrhage or infarct. Minor chronic white matter ischemic changes are felt be present. Moderate generalized volume loss. * RPR: nonreactive * HIV: negative * TSH: within normal and repeat within normal * Folate: normal and repeat within normal * B12: normal and repeat within normal * Recommended to patient to follow-up with neurology outpatient and to establish care in the [facility] upon discharge Medications: * Aricept 10mg PO qHS * Namenda 10mg bid * Folic acid 1mg PO daily * Crestor 2.5mg PO HS 2.) Anemia-->Resolved * Within normal * Monitor 3) Cough -Reports for the past two days. -Afebrile and no leukocytosis. Will continue to monitor. 4) Hypokalemia-->resolved * resolved 5) Abnormal Chest xray-->resolved * CT Chest: no acute pathology noted; official report in the computer 6) Impaired glucose tolerance * Hgba1c: 5.7 * Will need check in one year for a1c to prevent diabetes 7) HTN-->Chronic * continue home Cozaar 25mg PO daily * Aspirin 81mg PO daily * 2 gram diet 8) Prophylaxis * Pepcid 20mg PO BID * Patient is ambulatory. * SCDs * Appointed Cam Milling Machine Operator: Court appointed, Mr. Los Henry, [address] [facility] [address] ; Temporary Guardian is Dangelo Thomas. Disposition: State guardianship approved. Meeting completed. Patient still awaiting placement. No new updates at this time. Will discuss case with Dr. Barbara Kelley PGY-1 <Gary Damon - Last Filed: 08/25/17 20:21> Objective - Vital Signs/Intake and Output Vital Signs (last 24 hours): Temp Pulse Resp BP Pulse Ox 97.8 F 80 20 109/72 96 08/25/17 15:45 08/25/17 15:45 08/25/17 15:45 08/25/17 15:45 08/25/17 15:45 Intake and Output: 08/25/17 08/26/17 18:59 06:59 Intake Total 780 Balance 780 - Medications Medications: Current Medications Aspirin (Ecotrin) 81 mg PO DAILY [facility] Last Admin: 08/25/17 09:17 Dose: 81 mg Donepezil HCl (Aricept) 10 mg PO HS [facility] Last Admin: 08/24/17 21:32 Dose: 10 mg Famotidine (Pepcid) 20 mg PO DAILY [facility] Last Admin: 08/25/17 09:18 Dose: 20 mg Folic Acid (Folic Acid) 1 mg PO DAILY [facility] Last Admin: 08/25/17 09:18 Dose: 1 mg Losartan Potassium (Cozaar) 25 mg PO DAILY [facility] Last Admin: 08/25/17 09:16 Dose: 25 mg Memantine (Namenda) 10 mg PO DAILY [facility] Last Admin: 08/25/17 09:18 Dose: 10 mg Rosuvastatin Calcium (Crestor) 2.5 mg PO HS [facility] Last Admin: 08/24/17 21:32 Dose: 2.5 mg - Labs Labs: 08/20/17 06:06 08/20/17 06:06 PT 11.8 SECONDS (9.7-12.2) 06/21/17 22:04 INR 1.1 06/21/17 22:04 APTT 32 SECONDS (21-34) 06/21/17 22:04 Attending/Attestation - Attestation I have personally seen and examined this patient.: Yes I have fully participated in the care of the patient.: Yes I have reviewed all pertinent clinical information, including history, physical exam and plan: Yes Notes (Text): 08/25/17 20:20 Patient was seen and examined at 2:45 PM 08/25/17 358 A Exam, assessment and plan were gone over with the resident Upon FULL ROS The scratchiness in the throat has resolved NO dysphagia/odynopahgia NO soreness in throat NO cough NO sinus/nasal congestion NO fever/chills NO muscle aches/pains NO joint pain NO chest pain/palpations NO SOB NO abdominal pain NO n/v/d/c NO burning pain with urination NO CHAMPION Exam: General: AAOX3, NAD HEENT: NCA, EOMI, PERRLA, NO cervical/supraclavicular/submandibular lymphadenopathy, NO pharyngeal erythema/exudate, Nasal Turbinates are nonerythematous/nonedematous, Oral Mucosa is moist Cardio: NS1 and NS2, NO M/R/G Resp: CTA B/L, NO R/R/W GI: BSx4, Soft, NT, NO HSM, NO guarding/rebound tenderness Ext: Pulses are strong and equal, Capillary Refill is 2 seconds, NO edema Neuro: CN II through XII are grossly intact Assessment and Plan: 1). Dimentia: Aricept, Namenda, Folic Acid, Crestor, ASA 2). Anemia: resolved 3). Hypokalemia: resolved 4). Abnormal Chest X Ray (Granuloma?): CT Chest was unremarkable 5). Impaired Fasting Glucose: HgBA1C was 5.7 6). HTN: Cozaar 7). Prophylaxis: Pepcid, SCD,Heparin, 1:1 observation for elopement risk Monitor patient for URI. Patient met with his [facility] Appointed Guardian 08/21/17 and awaiting placement. Gary Damon D.O.
[2017-08-25] MEDS: Rosuvastatin Calcium 2.5 mg Tab PO SCH (21:35)
--- NOTE | 2017-08-26 00:06 | CP.PCM.PN ---
<Angel Kelley - Last Filed: 08/26/17 07:22> Subjective - Date & Time of Evaluation Date of Evaluation: 08/26/17 Time of Evaluation: 05:20 - Subjective Subjective: Medicine progress note for Dr. Barbara Damon Patient seen and examined. Patient endorses no new complaints at this time. Objective - Vital Signs/Intake and Output Vital Signs (last 24 hours): Temp Pulse Resp BP Pulse Ox 97.9 F 70 18 110/71 99 08/25/17 23:17 08/25/17 23:17 08/25/17 23:17 08/25/17 23:17 08/25/17 23:17 Intake and Output: 08/25/17 08/26/17 18:59 06:59 Intake Total 780 500 Balance 780 500 - Medications Medications: Current Medications Aspirin (Ecotrin) 81 mg PO DAILY [facility] Last Admin: 08/25/17 09:17 Dose: 81 mg Donepezil HCl (Aricept) 10 mg PO [facility] Last Admin: 08/25/17 21:32 Dose: 10 mg Famotidine (Pepcid) 20 mg PO DAILY [facility] Last Admin: 08/25/17 09:18 Dose: 20 mg Folic Acid (Folic Acid) 1 mg PO DAILY [facility] Last Admin: 08/25/17 09:18 Dose: 1 mg Losartan Potassium (Cozaar) 25 mg PO DAILY [facility] Last Admin: 08/25/17 09:16 Dose: 25 mg Memantine (Namenda) 10 mg PO DAILY [facility] Last Admin: 08/25/17 09:18 Dose: 10 mg Rosuvastatin Calcium (Crestor) 2.5 mg PO [facility] Last Admin: 08/25/17 21:35 Dose: 2.5 mg - Labs Labs: 08/20/17 06:06 08/20/17 06:06 PT 11.8 SECONDS (9.7-12.2) 06/21/17 22:04 INR 1.1 06/21/17 22:04 APTT 32 SECONDS (21-34) 06/21/17 22:04 - Additional Findings Additional findings: - Head Exam Head Exam: ATRAUMATIC, NORMOCEPHALIC - Eye Exam Eye Exam: EOMI, Normal appearance - ENT Exam ENT Exam: Mucous Membranes Moist - Respiratory Exam Respiratory Exam: Clear to Ausculation Bilateral, NORMAL BREATHING PATTERN. absent: Rales, Rhonchi, Wheezes - Cardiovascular Exam Cardiovascular Exam: REGULAR RHYTHM, +S1, +S2 - GI/Abdominal Exam GI & Abdominal Exam: Soft, Normal Bowel Sounds - Extremities Exam Extremities Exam: absent: Tenderness - Neurological Exam Neurological Exam: Alert, Awake - Psychiatric Exam Psychiatric exam: Normal Affect, Normal Mood - Skin Skin Exam: Dry, Warm Assessment and Plan - Assessment and Plan (Free Text) Plan: 1.) Family History of Alzheimer's Disease Early Onset of Dementia * Family Hx: patient had Alzheimer's Disease at age 71 * Patient was told by a neurologist he has early signs of dementia * Psych consult Dr. Valente --> help appreciated * CT scan of the head is negative * X-ray shows a apical granuloma * Neurology Dr. Manzanares-->help appreciated * Completed EEG 07/07/17 * Discussed patient may complete further workup as outpatient. * negative heavy metal screen * Repeat MRI 07/09: no acute intracranial abnormality. Mild chronic microangiopathic changes and mild age-related global parenchymal volume loss. Please note workup is in prior admission when patient eloped on discharge. * CT scan of the chest is negative and unremarkable * UDS is negative * UA: urine only + for ketones * Brain MRI: Limited motion degraded study. No evidence of acute hemorrhage or infarct. Minor chronic white matter ischemic changes are felt be present. Moderate generalized volume loss. * RPR: nonreactive * HIV: negative * TSH: within normal and repeat within normal * Folate: normal and repeat within normal * B12: normal and repeat within normal * Recommended to patient to follow-up with neurology outpatient and to establish care in the [facility] upon discharge Medications: * Aricept 10mg PO qHS * Namenda 10mg bid * Folic acid 1mg PO daily * Crestor 2.5mg PO HS 2.) Anemia-->Resolved * Within normal * Monitor 3) Cough -Reports for the past two days. -Afebrile and no leukocytosis. Will continue to monitor. 4) Hypokalemia-->resolved * resolved 5) Abnormal Chest xray-->resolved * CT Chest: no acute pathology noted; official report in the computer 6) Impaired glucose tolerance * Hgba1c: 5.7 * Will need check in one year for a1c to prevent diabetes 7) HTN-->Chronic * continue home Cozaar 25mg PO daily * Aspirin 81mg PO daily * 2 gram diet 8) Prophylaxis * Pepcid 20mg PO BID * Patient is ambulatory. * SCDs * Appointed Data Collection Specialist: Court appointed, Mr. Los Henry, [address] [facility] [address] ; Temporary Guardian is Dangelo Thomas. Disposition: State guardianship approved. Meeting completed. Patient still awaiting placement. No new updates at this time. Will discuss case with Dr. Barbara Kelley PGY-1 <Gary Damon - Last Filed: 08/26/17 17:07> Objective - Vital Signs/Intake and Output Vital Signs (last 24 hours): Temp Pulse Resp BP Pulse Ox 97.5 F L 68 20 117/82 99 08/26/17 16:00 08/26/17 16:00 08/26/17 16:00 08/26/17 16:00 08/26/17 16:00 Intake and Output: 08/26/17 08/26/17 06:59 18:59 Intake Total 500 1010 Balance 500 1010 - Medications Medications: Current Medications Aspirin (Ecotrin) 81 mg PO DAILY [facility] Last Admin: 08/26/17 09:57 Dose: 81 mg Donepezil HCl (Aricept) 10 mg PO HS [facility] Last Admin: 08/25/17 21:32 Dose: 10 mg Famotidine (Pepcid) 20 mg PO DAILY [facility] Last Admin: 08/26/17 09:57 Dose: 20 mg Folic Acid (Folic Acid) 1 mg PO DAILY [facility] Last Admin: 08/26/17 09:57 Dose: 1 mg Losartan Potassium (Cozaar) 25 mg PO DAILY [facility] Last Admin: 08/26/17 09:57 Dose: 25 mg Memantine (Namenda) 10 mg PO DAILY [facility] Last Admin: 08/26/17 09:57 Dose: 10 mg Rosuvastatin Calcium (Crestor) 2.5 mg PO HS [facility] Last Admin: 08/25/17 21:35 Dose: 2.5 mg - Labs Labs: 08/20/17 06:06 08/20/17 06:06 PT 11.8 SECONDS (9.7-12.2) 06/21/17 22:04 INR 1.1 06/21/17 22:04 APTT 32 SECONDS (21-34) 06/21/17 22:04 Attending/Attestation - Attestation I have personally seen and examined this patient.: Yes I have fully participated in the care of the patient.: Yes I have reviewed all pertinent clinical information, including history, physical exam and plan: Yes Notes (Text): 08/26/17 17:03 Patient was seen and examined at 5:00 PM 08/26/17 358 A Exam, assessment and plan we Upon FULL ROS The scratchiness in the throat has resolved NO dysphagia/odynopahgia NO soreness in throat NO cough NO sinus/nasal congestion NO fever/chills NO muscle aches/pains NO joint pain NO chest pain/palpations NO SOB NO abdominal pain NO n/v/d/c NO burning pain with urination NO CHAMPION Exam: General: AAOX3, NAD HEENT: NCA, EOMI, PERRLA, NO cervical/supraclavicular/submandibular lymphadenopathy, NO pharyngeal erythema/exudate, Nasal Turbinates are nonerythematous/nonedematous, Oral Mucosa is moist Cardio: NS1 and NS2, NO M/R/G Resp: CTA B/L, NO R/R/W GI: BSx4, Soft, NT, NO HSM, NO guarding/rebound tenderness Ext: Pulses are strong and equal, Capillary Refill is 2 seconds, NO edema Neuro: CN II through XII are grossly intact Assessment and Plan: 1). Dimentia: Aricept, Namenda, Folic Acid, Crestor, ASA 2). Anemia: resolved 3). Hypokalemia: resolved 4). Abnormal Chest X Ray (Granuloma?): CT Chest was unremarkable 5). Impaired Fasting Glucose: HgBA1C was 5.7 6). HTN: Cozaar 7). Prophylaxis: Pepcid, SCD,Heparin, 1:1 observation for elopement risk Patient met with his [facility] Appointed Guardian 08/21/17 and awaiting placement. Gary Damon D.O.
[2017-08-26] MEDS: Rosuvastatin Calcium 2.5 mg Tab PO SCH (21:04)
[2017-08-27 08:31] LABS: BASO % 0.3 % (0.0-2.0); EOS # 0.1 K/uL (0.0-0.7); EOS % 0.9 % (0.0-4.0); HEMOGLOBIN 14.7 g/dL (12.0-18.0); LYMPH # 1.2 K/uL (1.0-4.3); LYMPH % 16.8 % (20.0-40.0); MEAN CELL VOLUME 92.1 fL (80.0-94.0); MEAN CORPUSCULAR HEMOGLOBIN 32.2 pg (27.0-31.0); MEAN PLATELET VOLUME 7.3 fL (7.2-11.7); MONO # 0.5 K/uL (0.0-0.8); MONO % 6.6 % (0.0-10.0); NEUT # 5.3 K/uL (1.8-7.0); NEUT % 75.4 % (50.0-75.0); RBC 4.58 Mil/uL (4.40-5.90); RED CELL DISTRIBUTION WIDTH 12.9 % (11.5-14.5)
[2017-08-27 08:49] LABS: ALB/GLOB RATIO 1.4 (1.0-2.1); ALT/SGPT 38 U/L (21-72); AST/SGOT 26 U/L (17-59); BLOOD UREA NITROGEN 17 mg/dL (9-20); CALCIUM 8.6 mg/dl (8.6-10.4); GFR AFRICAN-AMERICAN > 60; GFR NON-AFRICAN AMERICAN > 60
--- NOTE | 2017-08-27 12:01 | CP.PCM.PN ---
Subjective - Date & Time of Evaluation Date of Evaluation: 08/27/17 Time of Evaluation: 11:58 - Subjective Subjective: Mr. Nelson was seen and examined at the bedside. He is alert, oriented. He denies any headache, dizziness, lightheadedness, nausea, or vomiting. He is able to follow commands. He states that he still waiting for his placement. He remains on 1:1 sitter for patient safety. There was no untoward events overnight. Objective - Vital Signs/Intake and Output Vital Signs (last 24 hours): Temp Pulse Resp BP Pulse Ox 97.9 F 95 H 20 130/75 96 08/27/17 08:00 08/27/17 08:00 08/27/17 08:00 08/27/17 08:00 08/27/17 08:00 Intake and Output: 08/27/17 08/27/17 06:59 18:59 Intake Total 750 Balance 750 - Medications Medications: Current Medications Aspirin (Ecotrin) 81 mg PO DAILY [facility] Last Admin: 08/27/17 09:17 Dose: 81 mg Donepezil HCl (Aricept) 10 mg PO [facility] Last Admin: 08/26/17 21:03 Dose: 10 mg Famotidine (Pepcid) 20 mg PO DAILY [facility] Last Admin: 08/27/17 09:17 Dose: 20 mg Folic Acid (Folic Acid) 1 mg PO DAILY [facility] Last Admin: 08/27/17 09:17 Dose: 1 mg Losartan Potassium (Cozaar) 25 mg PO DAILY [facility] Last Admin: 08/27/17 09:17 Dose: 25 mg Memantine (Namenda) 10 mg PO DAILY [facility] Last Admin: 08/27/17 09:17 Dose: 10 mg Rosuvastatin Calcium (Crestor) 2.5 mg PO [facility] Last Admin: 08/26/17 21:04 Dose: 2.5 mg - Labs Labs: 08/27/17 08:20 08/27/17 08:20 PT 11.8 SECONDS (9.7-12.2) 06/21/17 22:04 INR 1.1 06/21/17 22:04 APTT 32 SECONDS (21-34) 06/21/17 22:04 - Constitutional Appears: No Acute Distress - Head Exam Head Exam: NORMAL INSPECTION - Neurological Exam Neurological Exam: Alert, Awake Neuro motor strength exam: Left Upper Extremity: 5, Right Upper Extremity: 5, Left Lower Extremity: 5, Right Lower Extremity: 5 Additional comments: Neurological unchanged from previous examination. Assessment and Plan (1) Dementia Assessment & Plan: Case discussed with Dr. Manzanares, continue all current medical regimen. Patient is awaiting facility placement. Status: Chronic
--- NOTE | 2017-08-27 18:00 | CP.PCM.PN ---
<Rao Hays - Last Filed: 08/27/17 20:27> Subjective - Date & Time of Evaluation Date of Evaluation: 08/27/17 Time of Evaluation: 06:59 - Subjective Subjective: Medicine Progress Note for Dr. Sawyer's Service, Rao Hays PGY1 Garment Alteration Examiner Patient was seen and examined at bedside. Per nursing, there were no acute events overnight. The patient reports that his cough has gone as of this morning. The patient is currently at his neurological baseline. The patient denies any lightheadedness, skin changes, fevers, chills, nausea, vomiting, headaches, syncopal episodes, abdominal pain, chest pain, shortness of breath, constipation ,diarrhea, or any other complaints. Objective - Vital Signs/Intake and Output Vital Signs (last 24 hours): Temp Pulse Resp BP Pulse Ox 97.7 F 93 H 20 117/74 97 08/27/17 16:00 08/27/17 16:00 08/27/17 16:00 08/27/17 16:00 08/27/17 16:00 Intake and Output: 08/27/17 08/27/17 06:59 18:59 Intake Total 750 800 Balance 750 800 - Medications Medications: Current Medications Aspirin (Ecotrin) 81 mg PO DAILY [facility] Last Admin: 08/27/17 09:17 Dose: 81 mg Donepezil HCl (Aricept) 10 mg PO [facility] Last Admin: 08/26/17 21:03 Dose: 10 mg Famotidine (Pepcid) 20 mg PO DAILY [facility] Last Admin: 08/27/17 09:17 Dose: 20 mg Folic Acid (Folic Acid) 1 mg PO DAILY [facility] Last Admin: 08/27/17 09:17 Dose: 1 mg Losartan Potassium (Cozaar) 25 mg PO DAILY [facility] Last Admin: 08/27/17 09:17 Dose: 25 mg Memantine (Namenda) 10 mg PO DAILY [facility] Last Admin: 08/27/17 09:17 Dose: 10 mg Rosuvastatin Calcium (Crestor) 2.5 mg PO [facility] Last Admin: 08/26/17 21:04 Dose: 2.5 mg - Labs Labs: 08/27/17 08:20 08/27/17 08:20 PT 11.8 SECONDS (9.7-12.2) 06/21/17 22:04 INR 1.1 06/21/17 22:04 APTT 32 SECONDS (21-34) 06/21/17 22:04 - Head Exam Head Exam: ATRAUMATIC, NORMAL INSPECTION, NORMOCEPHALIC - Eye Exam Eye Exam: EOMI, Normal appearance, PERRL. absent: Periorbital tenderness Pupil Exam: NORMAL ACCOMODATION, PERRL. absent: Irregular, Unequal - ENT Exam ENT Exam: Mucous Membranes Moist, Normal Exam, Normal Oropharynx - Neck Exam Neck Exam: absent: Lymphadenopathy, Thyromegaly - Respiratory Exam Respiratory Exam: Clear to Ausculation Bilateral, NORMAL BREATHING PATTERN. absent: Chest Wall Tenderness, Prolonged Expiratory Phase, Respiratory Distress - Cardiovascular Exam Cardiovascular Exam: REGULAR RHYTHM, RRR, +S1, +S2. absent: Gallop, Rubs - GI/Abdominal Exam GI & Abdominal Exam: Soft, Normal Bowel Sounds. absent: Guarding, Rigid - Extremities Exam Extremities Exam: Full ROM, Normal Inspection. absent: Joint Swelling, Pedal Edema - Back Exam Back Exam: NORMAL INSPECTION. absent: CVA tenderness (L), CVA tenderness (R), paraspinal tenderness - Neurological Exam Neurological Exam: Alert, Awake, CN II-XII Intact - Psychiatric Exam Psychiatric exam: Normal Affect, Normal Mood Assessment and Plan - Assessment and Plan (Free Text) Plan: 1.) Family History of Alzheimer's Disease Early Onset of Dementia * Family Hx: patient had Alzheimer's Disease at age 71 * Patient was told by a neurologist he has early signs of dementia * Psych consult Dr. Valente --> help appreciated * CT scan of the head is negative * X-ray shows a apical granuloma * Neurology Dr. Manzanares-->help appreciated * Completed EEG 07/07/17 * Discussed patient may complete further workup as outpatient. * negative heavy metal screen * Repeat MRI 07/09: no acute intracranial abnormality. Mild chronic microangiopathic changes and mild age-related global parenchymal volume loss. Please note workup is in prior admission when patient eloped on discharge. * CT scan of the chest is negative and unremarkable * UDS is negative * UA: urine only + for ketones * Brain MRI: Limited motion degraded study. No evidence of acute hemorrhage or infarct. Minor chronic white matter ischemic changes are felt be present. Moderate generalized volume loss. * RPR: nonreactive * HIV: negative * TSH: within normal and repeat within normal * Folate: normal and repeat within normal * B12: normal and repeat within normal * Recommended to patient to follow-up with neurology outpatient and to establish care in the [facility] upon discharge Medications: * Aricept 10mg PO qHS * Namenda 10mg bid * Folic acid 1mg PO daily * Crestor 2.5mg PO HS 2.) Anemia-->Resolved * Within normal * Monitor 3) Cough ---> Resolved -Reports for the past two days. -Afebrile and no leukocytosis. Will continue to monitor. 4) Hypokalemia-->resolved * resolved 5) Abnormal Chest xray-->resolved * CT Chest: no acute pathology noted; official report in the computer 6) Impaired glucose tolerance * Hgba1c: 5.7 * Will need check in one year for a1c to prevent diabetes 7) HTN-->Chronic * continue home Cozaar 25mg PO daily * Aspirin 81mg PO daily * 2 gram diet 8) Prophylaxis * Pepcid 20mg PO BID * Patient is ambulatory. * SCDs * Appointed Senior Data Warehouse Developer: Court appointed, Mr. Los Henry, [address] [place] [address] ; Temporary Guardian is Dangelo Thomas. Disposition: State guardianship approved. Patient still awaiting placement. Will continue to follow. <Tamera Sawyer V - Last Filed: 08/27/17 22:51> Objective - Vital Signs/Intake and Output Vital Signs (last 24 hours): Temp Pulse Resp BP Pulse Ox 97.7 F 93 H 20 117/74 97 08/27/17 16:00 08/27/17 16:00 08/27/17 16:00 08/27/17 16:00 08/27/17 16:00 Intake and Output: 08/27/17 08/28/17 18:59 06:59 Intake Total 800 Balance 800 - Medications Medications: Current Medications Aspirin (Ecotrin) 81 mg PO DAILY [facility] Last Admin: 08/27/17 09:17 Dose: 81 mg Donepezil HCl (Aricept) 10 mg PO HS [facility] Last Admin: 08/27/17 21:28 Dose: 10 mg Famotidine (Pepcid) 20 mg PO DAILY [facility] Last Admin: 08/27/17 09:17 Dose: 20 mg Folic Acid (Folic Acid) 1 mg PO DAILY [facility] Last Admin: 08/27/17 09:17 Dose: 1 mg Losartan Potassium (Cozaar) 25 mg PO DAILY [facility] Last Admin: 08/27/17 09:17 Dose: 25 mg Memantine (Namenda) 10 mg PO DAILY [facility] Last Admin: 08/27/17 09:17 Dose: 10 mg Rosuvastatin Calcium (Crestor) 2.5 mg PO [facility] Last Admin: 08/27/17 21:28 Dose: 2.5 mg - Labs Labs: 08/27/17 08:20 08/27/17 08:20 PT 11.8 SECONDS (9.7-12.2) 06/21/17 22:04 INR 1.1 06/21/17 22:04 APTT 32 SECONDS (21-34) 06/21/17 22:04 Attending/Attestation - Attestation I have personally seen and examined this patient.: Yes I have fully participated in the care of the patient.: Yes I have reviewed all pertinent clinical information, including history, physical exam and plan: Yes Notes (Text): No acute changes. Will need to f/u with social case/case management in regards to discharge planning.
[2017-08-27] MEDS: Rosuvastatin Calcium 2.5 mg Tab PO SCH (21:28)
--- NOTE | 2017-08-28 14:40 | CP.PCM.PN ---
<Rao Hays - Last Filed: 08/28/17 18:02> Subjective - Date & Time of Evaluation Date of Evaluation: 08/28/17 Time of Evaluation: 06:39 - Subjective Subjective: Medicine Progress Note for Dr. Sawyer's Service, Rao Hays PGY1 Stave [employer] Roller Patient was seen and examined at bedside. Per nursing, there were no acute events overnight. The patient reports some congestion today. The patient is currently at his neurological baseline. The patient denies any lightheadedness , skin changes, fevers, chills, nausea, vomiting, headaches, syncopal episodes, abdominal pain, chest pain, shortness of breath, constipation ,diarrhea, or any other complaints. Objective - Vital Signs/Intake and Output Vital Signs (last 24 hours): Temp Pulse Resp BP Pulse Ox 97.7 F 89 20 130/89 98 08/28/17 08:00 08/28/17 08:00 08/28/17 08:00 08/28/17 08:00 08/28/17 08:00 Intake and Output: 08/28/17 08/28/17 06:59 18:59 Intake Total 850 600 Balance 850 600 - Medications Medications: Current Medications Aspirin (Ecotrin) 81 mg PO DAILY [facility] Last Admin: 08/28/17 09:39 Dose: 81 mg Donepezil HCl (Aricept) 10 mg PO HS [facility] Last Admin: 08/27/17 21:28 Dose: 10 mg Famotidine (Pepcid) 20 mg PO DAILY [facility] Last Admin: 08/28/17 09:39 Dose: 20 mg Folic Acid (Folic Acid) 1 mg PO DAILY [facility] Last Admin: 08/28/17 09:40 Dose: 1 mg Losartan Potassium (Cozaar) 25 mg PO DAILY [facility] Last Admin: 08/28/17 09:39 Dose: 25 mg Memantine (Namenda) 10 mg PO DAILY [facility] Last Admin: 08/28/17 09:39 Dose: 10 mg Rosuvastatin Calcium (Crestor) 2.5 mg PO HS [facility] Last Admin: 08/27/17 21:28 Dose: 2.5 mg - Labs Labs: 08/27/17 08:20 08/27/17 08:20 PT 11.8 SECONDS (9.7-12.2) 06/21/17 22:04 INR 1.1 06/21/17 22:04 APTT 32 SECONDS (21-34) 06/21/17 22:04 - Head Exam Head Exam: ATRAUMATIC, NORMAL INSPECTION, NORMOCEPHALIC - Eye Exam Eye Exam: EOMI, Normal appearance, PERRL Pupil Exam: NORMAL ACCOMODATION, PERRL. absent: Irregular, Unequal - ENT Exam ENT Exam: Mucous Membranes Moist, Normal Oropharynx - Neck Exam Neck Exam: Full ROM, Normal Inspection. absent: Lymphadenopathy, Thyromegaly - Respiratory Exam Respiratory Exam: Clear to Ausculation Bilateral, NORMAL BREATHING PATTERN. absent: Chest Wall Tenderness, Prolonged Expiratory Phase, Respiratory Distress - Cardiovascular Exam Cardiovascular Exam: REGULAR RHYTHM, RRR, +S1, +S2. absent: Rubs - GI/Abdominal Exam GI & Abdominal Exam: Soft, Normal Bowel Sounds - Extremities Exam Extremities Exam: Full ROM, Normal Inspection. absent: Joint Swelling, Pedal Edema, Tenderness - Back Exam Back Exam: NORMAL INSPECTION. absent: CVA tenderness (L), CVA tenderness (R), paraspinal tenderness - Neurological Exam Neurological Exam: Alert, Awake, CN II-XII Intact, Normal Gait, Oriented x3 - Psychiatric Exam Psychiatric exam: Normal Affect, Normal Mood. absent: Depressed - Skin Skin Exam: Dry, Intact, Normal Color Assessment and Plan - Assessment and Plan (Free Text) Plan: 1.) Family History of Alzheimer's Disease Early Onset of Dementia * Family Hx: patient had Alzheimer's Disease at age 71 * Patient was told by a neurologist he has early signs of dementia * Psych consult Dr. Valente --> help appreciated * CT scan of the head is negative * X-ray shows a apical granuloma * Neurology Dr. Manzanares-->help appreciated * Completed EEG 07/07/17 * Discussed patient may complete further workup as outpatient. * negative heavy metal screen * Repeat MRI 07/09: no acute intracranial abnormality. Mild chronic microangiopathic changes and mild age-related global parenchymal volume loss. Please note workup is in prior admission when patient eloped on discharge. * CT scan of the chest is negative and unremarkable * UDS is negative * UA: urine only + for ketones * Brain MRI: Limited motion degraded study. No evidence of acute hemorrhage or infarct. Minor chronic white matter ischemic changes are felt be present. Moderate generalized volume loss. * RPR: nonreactive * HIV: negative * TSH: within normal and repeat within normal * Folate: normal and repeat within normal * B12: normal and repeat within normal * Recommended to patient to follow-up with neurology outpatient and to establish care in the [facility] clinic upon discharge Medications: * Aricept 10mg PO qHS * Namenda 10mg bid * Folic acid 1mg PO daily * Crestor 2.5mg PO HS 2.) Anemia-->Resolved * Within normal * Monitor 3) Cough ---> Resolved -Reports for the past two days. -Afebrile and no leukocytosis. Will continue to monitor. 4) Hypokalemia-->resolved * resolved 5) Abnormal Chest xray-->resolved * CT Chest: no acute pathology noted; official report in the computer 6) Impaired glucose tolerance * Hgba1c: 5.7 * Will need check in one year for a1c to prevent diabetes 7) HTN-->Chronic * continue home Cozaar 25mg PO daily * Aspirin 81mg PO daily * 2 gram diet 8) Nasal congestion -Flonase Prophylaxis * Pepcid 20mg PO BID * Patient is ambulatory. * SCDs * Appointed Advertising Project Manager: Court appointed, Mr. Los Henry, [address] [place] [address] ; Temporary Guardian is Dangelo Thomas. Disposition: State guardianship approved. Patient still awaiting placement. Will continue to follow. <Tamera Sawyer V - Last Filed: 08/29/17 23:55> Objective - Vital Signs/Intake and Output Vital Signs (last 24 hours): Temp Pulse Resp BP Pulse Ox 97.6 F 90 20 131/85 96 08/29/17 07:33 08/29/17 07:33 08/29/17 07:33 08/29/17 07:33 08/29/17 07:33 Intake and Output: 08/29/17 08/30/17 18:59 06:59 Intake Total 800 450 Balance 800 450 - Medications Medications: Current Medications Aspirin (Ecotrin) 81 mg PO DAILY [facility] Last Admin: 08/29/17 10:09 Dose: 81 mg Donepezil HCl (Aricept) 10 mg PO HS [facility] Last Admin: 08/29/17 21:48 Dose: 10 mg Famotidine (Pepcid) 20 mg PO DAILY [facility] Last Admin: 08/29/17 10:09 Dose: 20 mg Fluticasone Propionate (Flonase) 2 spr IZAIAH DAILY [facility] Last Admin: 08/29/17 10:09 Dose: 2 sprays Folic Acid (Folic Acid) 1 mg PO DAILY [facility] Last Admin: 08/29/17 10:09 Dose: 1 mg Losartan Potassium (Cozaar) 25 mg PO DAILY [facility] Last Admin: 08/29/17 10:09 Dose: 25 mg Memantine (Namenda) 10 mg PO DAILY [facility] Last Admin: 08/29/17 10:09 Dose: 10 mg Rosuvastatin Calcium (Crestor) 2.5 mg PO HS [facility] Last Admin: 08/29/17 21:48 Dose: 2.5 mg - Labs Labs: 08/27/17 08:20 08/27/17 08:20 PT 11.8 SECONDS (9.7-12.2) 06/21/17 22:04 INR 1.1 06/21/17 22:04 APTT 32 SECONDS (21-34) 06/21/17 22:04 Attending/Attestation - Attestation I have personally seen and examined this patient.: Yes I have fully participated in the care of the patient.: Yes I have reviewed all pertinent clinical information, including history, physical exam and plan: Yes Notes (Text): This is late computer entry for 08/28/17. Patient seen, examined and case discussed with day-time resident. Agree with assessment and plan as written by the resident. No acute changes over night. Patient is pending discharge planning coordinated with case management/social work and court appointed guardian.
[2017-08-28] MEDS: Rosuvastatin Calcium 2.5 mg Tab PO SCH (21:18)
--- NOTE | 2017-08-29 10:02 | CP.PCM.PN ---
<Rao Hays - Last Filed: 08/29/17 17:32> Subjective - Date & Time of Evaluation Date of Evaluation: 08/29/17 Time of Evaluation: 06:01 - Subjective Subjective: Medicine Progress Note for Dr. Sawyer's Service, Rao Hays PGY1 Child Nurse Patient was seen and examined at bedside. Per nursing, there were no acute events overnight. The patient reports his congestion drying up quicker after using the Flonase today. The patient is currently at his neurological baseline. The patient denies any lightheadedness, skin changes, fevers, chills , nausea, vomiting, headaches, syncopal episodes, abdominal pain, chest pain, shortness of breath, constipation ,diarrhea, or any other complaints. Objective - Vital Signs/Intake and Output Vital Signs (last 24 hours): Temp Pulse Resp BP Pulse Ox 97.6 F 90 20 131/85 96 08/29/17 07:33 08/29/17 07:33 08/29/17 07:33 08/29/17 07:33 08/29/17 07:33 Intake and Output: 08/29/17 08/29/17 06:59 18:59 Intake Total 500 200 Balance 500 200 - Medications Medications: Current Medications Aspirin (Ecotrin) 81 mg PO DAILY [facility] Last Admin: 08/28/17 09:39 Dose: 81 mg Donepezil HCl (Aricept) 10 mg PO HS [facility] Last Admin: 08/28/17 21:18 Dose: 10 mg Famotidine (Pepcid) 20 mg PO DAILY [facility] Last Admin: 08/28/17 09:39 Dose: 20 mg Fluticasone Propionate (Flonase) 2 spr IZAIAH DAILY [facility] Folic Acid (Folic Acid) 1 mg PO DAILY [facility] Last Admin: 08/28/17 09:40 Dose: 1 mg Losartan Potassium (Cozaar) 25 mg PO DAILY [facility] Last Admin: 08/28/17 09:39 Dose: 25 mg Memantine (Namenda) 10 mg PO DAILY [facility] Last Admin: 08/28/17 09:39 Dose: 10 mg Rosuvastatin Calcium (Crestor) 2.5 mg PO HS [facility] Last Admin: 08/28/17 21:18 Dose: 2.5 mg - Labs Labs: 08/27/17 08:20 08/27/17 08:20 PT 11.8 SECONDS (9.7-12.2) 06/21/17 22:04 INR 1.1 06/21/17 22:04 APTT 32 SECONDS (21-34) 06/21/17 22:04 - Head Exam Head Exam: ATRAUMATIC, NORMAL INSPECTION, NORMOCEPHALIC - Eye Exam Eye Exam: EOMI, Normal appearance, PERRL. absent: Periorbital tenderness Pupil Exam: NORMAL ACCOMODATION, PERRL. absent: Irregular, Unequal - ENT Exam ENT Exam: Mucous Membranes Moist, Normal Oropharynx, TM's Normal Bilaterally - Neck Exam Neck Exam: Normal Inspection. absent: Lymphadenopathy, Thyromegaly - Respiratory Exam Respiratory Exam: Clear to Ausculation Bilateral, NORMAL BREATHING PATTERN. absent: Chest Wall Tenderness, Prolonged Expiratory Phase, Respiratory Distress - Cardiovascular Exam Cardiovascular Exam: REGULAR RHYTHM, RRR, +S1, +S2. absent: Gallop, Rubs - GI/Abdominal Exam GI & Abdominal Exam: Soft, Normal Bowel Sounds. absent: Guarding, Rigid, Hyperactive Bowel Sounds - Extremities Exam Extremities Exam: Full ROM. absent: Joint Swelling, Pedal Edema - Back Exam Back Exam: NORMAL INSPECTION. absent: CVA tenderness (L), CVA tenderness (R), paraspinal tenderness - Neurological Exam Neurological Exam: Alert, Awake, CN II-XII Intact, Normal Gait, Oriented x3 - Psychiatric Exam Psychiatric exam: Normal Affect, Normal Mood. absent: Anxious, Depressed - Skin Skin Exam: Dry, Intact, Normal Color Assessment and Plan - Assessment and Plan (Free Text) Plan: 1.) Family History of Alzheimer's Disease Early Onset of Dementia * Family Hx: patient had Alzheimer's Disease at age 71 * Patient was told by a neurologist he has early signs of dementia * Psych consult Dr. Valente --> help appreciated * CT scan of the head is negative * X-ray shows a apical granuloma * Neurology Dr. Manzanares-->help appreciated * Completed EEG 07/07/17 * Discussed patient may complete further workup as outpatient. * negative heavy metal screen * Repeat MRI 07/09: no acute intracranial abnormality. Mild chronic microangiopathic changes and mild age-related global parenchymal volume loss. Please note workup is in prior admission when patient eloped on discharge. * CT scan of the chest is negative and unremarkable * UDS is negative * UA: urine only + for ketones * Brain MRI: Limited motion degraded study. No evidence of acute hemorrhage or infarct. Minor chronic white matter ischemic changes are felt be present. Moderate generalized volume loss. * RPR: nonreactive * HIV: negative * TSH: within normal and repeat within normal * Folate: normal and repeat within normal * B12: normal and repeat within normal * Recommended to patient to follow-up with neurology outpatient and to establish care in the [facility] upon discharge Medications: * Aricept 10mg PO qHS * Namenda 10mg bid * Folic acid 1mg PO daily * Crestor 2.5mg PO HS 2.) Anemia-->Resolved * Within normal * Monitor 3) Cough ---> Resolved -Reports for the past two days. -Afebrile and no leukocytosis. Will continue to monitor. 4) Hypokalemia-->resolved * resolved 5) Abnormal Chest xray-->resolved * CT Chest: no acute pathology noted; official report in the computer 6) Impaired glucose tolerance * Hgba1c: 5.7 * Will need check in one year for a1c to prevent diabetes 7) HTN-->Chronic * continue home Cozaar 25mg PO daily * Aspirin 81mg PO daily * 2 gram diet 8) Nasal congestion -Patient reports nasal congestion drying quicker after using flonase. -Continue Flonase Prophylaxis * Pepcid 20mg PO BID * Patient is ambulatory. * SCDs * Appointed Differential Tester: Court appointed, Mr. Los Henry, [address] [place] [address] ; Temporary Guardian is Dangelo Thomas. Disposition: State guardianship approved. Patient still awaiting placement. Will continue to follow. <Tamera Sawyer V - Last Filed: 08/29/17 23:56> Objective - Vital Signs/Intake and Output Vital Signs (last 24 hours): Temp Pulse Resp BP Pulse Ox 97.6 F 90 20 131/85 96 08/29/17 07:33 08/29/17 07:33 08/29/17 07:33 08/29/17 07:33 08/29/17 07:33 Intake and Output: 08/29/17 08/30/17 18:59 06:59 Intake Total 800 450 Balance 800 450 - Medications Medications: Current Medications Aspirin (Ecotrin) 81 mg PO DAILY [facility] Last Admin: 08/29/17 10:09 Dose: 81 mg Donepezil HCl (Aricept) 10 mg PO HS [facility] Last Admin: 08/29/17 21:48 Dose: 10 mg Famotidine (Pepcid) 20 mg PO DAILY [facility] Last Admin: 08/29/17 10:09 Dose: 20 mg Fluticasone Propionate (Flonase) 2 spr IZAIAH DAILY [facility] Last Admin: 08/29/17 10:09 Dose: 2 sprays Folic Acid (Folic Acid) 1 mg PO DAILY [facility] Last Admin: 08/29/17 10:09 Dose: 1 mg Losartan Potassium (Cozaar) 25 mg PO DAILY [facility] Last Admin: 08/29/17 10:09 Dose: 25 mg Memantine (Namenda) 10 mg PO DAILY [facility] Last Admin: 08/29/17 10:09 Dose: 10 mg Rosuvastatin Calcium (Crestor) 2.5 mg PO [facility] Last Admin: 08/29/17 21:48 Dose: 2.5 mg - Labs Labs: 08/27/17 08:20 08/27/17 08:20 PT 11.8 SECONDS (9.7-12.2) 06/21/17 22:04 INR 1.1 06/21/17 22:04 APTT 32 SECONDS (21-34) 06/21/17 22:04 Attending/Attestation - Attestation I have personally seen and examined this patient.: Yes I have fully participated in the care of the patient.: Yes I have reviewed all pertinent clinical information, including history, physical exam and plan: Yes Notes (Text): patient seen, examined, and case discussed with day-time resident. patient seen with his ex- present, trying to renew his Medicaid paperwork which is about to . Patient's nasal congestion has improved with Flonase. Patient pending discharge planning with social work/case management and coordinated efforts with court appointed guardian.
[2017-08-29] MEDS: Fluticasone Nasal 50 mcg/Spray NAS SCH (10:09)
[2017-08-29] MEDS: Rosuvastatin Calcium 2.5 mg Tab PO SCH (21:48)
[2017-08-30] MEDS: Fluticasone Nasal 50 mcg/Spray NAS SCH (09:26)
--- NOTE | 2017-08-30 09:31 | CP.PCM.PN ---
<Rao Hays - Last Filed: 08/30/17 17:29> Subjective - Date & Time of Evaluation Date of Evaluation: 08/30/17 Time of Evaluation: 06:30 - Subjective Subjective: Medicine Progress Note for Dr. Sawyer's Service, Rao Hays PGY1 Clinical Neuropsychologist Patient was seen and examined at bedside. Per nursing, there were no acute events overnight. The patient still reports the nasal congestion, however states today there is less present. The patient is currently at his neurological baseline. The patient denies any lightheadedness, skin changes, fevers, chills, nausea, vomiting, headaches, syncopal episodes, abdominal pain, chest pain, shortness of breath, constipation ,diarrhea, or any other complaints. Objective - Vital Signs/Intake and Output Vital Signs (last 24 hours): Temp Pulse Resp BP Pulse Ox 98.1 F 76 20 123/79 98 08/30/17 07:41 08/30/17 07:41 08/30/17 07:41 08/30/17 07:41 08/30/17 07:41 Intake and Output: 08/30/17 08/30/17 06:59 18:59 Intake Total 650 Balance 650 - Medications Medications: Current Medications Aspirin (Ecotrin) 81 mg PO DAILY [facility] Last Admin: 08/30/17 09:26 Dose: 81 mg Donepezil HCl (Aricept) 10 mg PO [facility] Last Admin: 08/29/17 21:48 Dose: 10 mg Famotidine (Pepcid) 20 mg PO DAILY [facility] Last Admin: 08/30/17 09:26 Dose: 20 mg Fluticasone Propionate (Flonase) 2 spr IZAIAH DAILY [facility] Last Admin: 08/30/17 09:26 Dose: 2 sprays Folic Acid (Folic Acid) 1 mg PO DAILY [facility] Last Admin: 08/30/17 09:26 Dose: 1 mg Losartan Potassium (Cozaar) 25 mg PO DAILY [facility] Last Admin: 08/30/17 09:26 Dose: 25 mg Memantine (Namenda) 10 mg PO DAILY [facility] Last Admin: 08/30/17 09:26 Dose: 10 mg Rosuvastatin Calcium (Crestor) 2.5 mg PO [facility] Last Admin: 08/29/17 21:48 Dose: 2.5 mg - Labs Labs: 08/27/17 08:20 08/27/17 08:20 PT 11.8 SECONDS (9.7-12.2) 06/21/17 22:04 INR 1.1 06/21/17 22:04 APTT 32 SECONDS (21-34) 06/21/17 22:04 - Head Exam Head Exam: ATRAUMATIC, NORMAL INSPECTION, NORMOCEPHALIC - Eye Exam Eye Exam: EOMI, Normal appearance, PERRL Pupil Exam: NORMAL ACCOMODATION, PERRL. absent: Irregular, Unequal - ENT Exam ENT Exam: Mucous Membranes Moist, Normal Oropharynx - Neck Exam Neck Exam: Normal Inspection, Thyromegaly. absent: Lymphadenopathy - Respiratory Exam Respiratory Exam: Clear to Ausculation Bilateral, NORMAL BREATHING PATTERN. absent: Prolonged Expiratory Phase, Respiratory Distress - Cardiovascular Exam Cardiovascular Exam: REGULAR RHYTHM, RRR, +S1, +S2. absent: Gallop, Rubs - GI/Abdominal Exam GI & Abdominal Exam: Soft, Normal Bowel Sounds. absent: Rigid, Hyperactive Bowel Sounds - Extremities Exam Extremities Exam: Full ROM, Normal Inspection. absent: Pedal Edema - Back Exam Back Exam: NORMAL INSPECTION. absent: CVA tenderness (L), CVA tenderness (R), paraspinal tenderness - Neurological Exam Neurological Exam: Alert, Awake, CN II-XII Intact, Normal Gait - Psychiatric Exam Psychiatric exam: Normal Affect, Normal Mood - Skin Skin Exam: Dry, Intact, Normal Color, Warm Assessment and Plan - Assessment and Plan (Free Text) Plan: 1.) Family History of Alzheimer's Disease Early Onset of Dementia * Family Hx: patient had Alzheimer's Disease at age 71 * Patient was told by a neurologist he has early signs of dementia * Psych consult Dr. Valente --> help appreciated * CT scan of the head is negative * X-ray shows a apical granuloma * Neurology Dr. Manzanares-->help appreciated * Completed EEG 07/07/17 * Discussed patient may complete further workup as outpatient. * negative heavy metal screen * Repeat MRI 07/09: no acute intracranial abnormality. Mild chronic microangiopathic changes and mild age-related global parenchymal volume loss. Please note workup is in prior admission when patient eloped on discharge. * CT scan of the chest is negative and unremarkable * UDS is negative * UA: urine only + for ketones * Brain MRI: Limited motion degraded study. No evidence of acute hemorrhage or infarct. Minor chronic white matter ischemic changes are felt be present. Moderate generalized volume loss. * RPR: nonreactive * HIV: negative * TSH: within normal and repeat within normal * Folate: normal and repeat within normal * B12: normal and repeat within normal * Recommended to patient to follow-up with neurology outpatient and to establish care in the [facility] upon discharge Medications: * Aricept 10mg PO qHS * Namenda 10mg bid * Folic acid 1mg PO daily * Crestor 2.5mg PO HS 2.) Anemia-->Resolved * Within normal * Monitor 3) Cough ---> Resolved -Reports for the past two days. -Afebrile and no leukocytosis. Will continue to monitor. 4) Hypokalemia-->resolved * resolved 5) Abnormal Chest xray-->resolved * CT Chest: no acute pathology noted; official report in the computer 6) Impaired glucose tolerance * Hgba1c: 5.7 * Will need check in one year for a1c to prevent diabetes 7) HTN-->Chronic * continue home Cozaar 25mg PO daily * Aspirin 81mg PO daily * 2 gram diet 8) Nasal congestion -Patient reports nasal congestion drying quicker after using flonase. -Continue Flonase -Chest xray ordered. Will f/u with results. Prophylaxis * Pepcid 20mg PO BID * Patient is ambulatory. * SCDs * Appointed Metallographic Technician: Court appointed, Mr. Lso Henry, [address] [place] [address] ; Temporary Guardian is Dangelo Thomas. Disposition: State guardianship approved. Patient still awaiting placement. Will continue to follow. <Tamera Sawyer V - Last Filed: 09/01/17 09:45> Objective - Vital Signs/Intake and Output Vital Signs (last 24 hours): Temp Pulse Resp BP Pulse Ox 97.6 F 78 20 117/85 98 09/01/17 07:42 09/01/17 07:42 09/01/17 07:42 09/01/17 07:42 09/01/17 07:42 Intake and Output: 09/01/17 09/01/17 06:59 18:59 Intake Total 150 Balance 150 - Medications Medications: Current Medications Albuterol/Ipratropium (Duoneb 3 Mg/0.5 Mg (3 Ml) Ud) 3 ml INH RQ6 PRN PRN Reason: Shortness of Breath Aspirin (Ecotrin) 81 mg PO DAILY [facility] Last Admin: 08/31/17 09:52 Dose: 81 mg Donepezil HCl (Aricept) 10 mg PO HS [facility] Last Admin: 08/31/17 21:41 Dose: 10 mg Famotidine (Pepcid) 20 mg PO DAILY [facility] Last Admin: 08/31/17 09:51 Dose: 20 mg Fluticasone Propionate (Flonase) 1 spr IZAIAH BID [facility] Folic Acid (Folic Acid) 1 mg PO DAILY [facility] Last Admin: 08/31/17 09:52 Dose: 1 mg Guaifenesin/Codeine Phosphate (Guaifenesin/Codeine) 5 ml PO Q4H PRN PRN Reason: Cough and congestion Losartan Potassium (Cozaar) 25 mg PO DAILY [facility] Last Admin: 08/31/17 09:52 Dose: 25 mg Memantine (Namenda) 10 mg PO DAILY [facility] Last Admin: 08/31/17 09:51 Dose: 10 mg Rosuvastatin Calcium (Crestor) 2.5 mg PO HS [facility] Last Admin: 08/31/17 21:41 Dose: 2.5 mg - Labs Labs: 08/27/17 08:20 08/27/17 08:20 PT 11.8 SECONDS (9.7-12.2) 06/21/17 22:04 INR 1.1 06/21/17 22:04 APTT 32 SECONDS (21-34) 06/21/17 22:04 Attending/Attestation - Attestation I have personally seen and examined this patient.: Yes I have fully participated in the care of the patient.: Yes I have reviewed all pertinent clinical information, including history, physical exam and plan: Yes Notes (Text): This is a late computer entry for 08/30/17. Patient seen, examined and case discussed with day-time resident. Patient does have mild nasal congestion and sporadic dry cough. Patient order for portable chest xray to rule out pneumonia. Patient to start Flonase for nasal congestion. Patient visited by ex- and friend at bedside. They have paper work from medicaid? to be filled; were directed to social work for assistance. No new updates from case/social work in regards to discharge planning Assessment/Plan: 1.) Family History of Alzheimer's Disease Early Onset of Dementia * Family Hx: patient had Alzheimer's Disease at age 71 * Patient was told by a neurologist he has early signs of dementia * Psych consult Dr. Valente --> help appreciated * CT scan of the head is negative * X-ray shows a apical granuloma * Neurology Dr. Manzanares-->help appreciated * Completed EEG 07/07/17 * Discussed patient may complete further workup as outpatient. * negative heavy metal screen * Repeat MRI 07/09: no acute intracranial abnormality. Mild chronic microangiopathic changes and mild age-related global parenchymal volume loss. Please note workup is in prior admission when patient eloped on discharge. * CT scan of the chest is negative and unremarkable * UDS is negative * UA: urine only + for ketones * Brain MRI: Limited motion degraded study. No evidence of acute hemorrhage or infarct. Minor chronic white matter ischemic changes are felt be present. Moderate generalized volume loss. * RPR: nonreactive * HIV: negative * TSH: within normal and repeat within normal * Folate: normal and repeat within normal * B12: normal and repeat within normal * Recommended to patient to follow-up with neurology outpatient and to establish care in the [facility] upon discharge Medications: * Aricept 10mg PO qHS * Namenda 10mg bid * Folic acid 1mg PO daily * Crestor 2.5mg PO HS 2.) Cough Nasal Congestion * Order for chest xray portable * Flonase for nasal congestion 3.) Anemia-->Resolved * Within normal * Monitor 4.) Hypokalemia-->resolved * resolved 5) Abnormal Chest xray-->resolved * CT Chest: no acute pathology noted; official report in the computer 6.) Impaired glucose tolerance * Hgba1c: 5.7 * Will need check in one year for a1c to prevent over diabetes 7.) HTN-->Chronic * continue home Cozaar 25mg PO daily * Aspirin 81mg PO daily * 2 gram diet 8.) Prophylaxis * Pepcid 20mg PO BID * Patient is ambulatory. * SCDs * Appointed Metallographic Technician Mr. Skeltonesph Marly Henry, [address] [facility] [address] * Temporary guardian: Mr Dangelo Thomas temporary guardian until 09/20/17 * Discharge planning underway.
[2017-08-30] MEDS: Rosuvastatin Calcium 2.5 mg Tab PO SCH (22:20)
--- NOTE | 2017-08-31 08:35 | RAD ---
HISTORY: congestion COMPARISON: 06/21/2017 FINDINGS: LUNGS: No active pulmonary disease. PLEURA: No significant pleural effusion identified, no pneumothorax apparent. CARDIOVASCULAR: Normal. OSSEOUS STRUCTURES: No significant abnormalities. VISUALIZED UPPER ABDOMEN: Normal. OTHER FINDINGS: None. IMPRESSION: No active disease.
[2017-08-31] MEDS: Fluticasone Nasal 50 mcg/Spray NAS SCH (09:52)
--- NOTE | 2017-08-31 12:20 | CP.PCM.PN ---
<Rao Hays - Last Filed: 08/31/17 19:32> Subjective - Date & Time of Evaluation Date of Evaluation: 08/31/17 Time of Evaluation: 08:19 - Subjective Subjective: Medicine Progress Note for Dr. Sawyer's Service, Rao Hays PGY1 Costume Maker Patient was seen and examined at bedside. Per nursing, there were no acute events overnight. The patient still reports the nasal congestion, however states today there is less present. The patient is currently at his neurological baseline. The patient denies any lightheadedness, skin changes, fevers, chills, nausea, vomiting, headaches, syncopal episodes, abdominal pain, chest pain, shortness of breath, constipation ,diarrhea, or any other complaints. Objective - Vital Signs/Intake and Output Vital Signs (last 24 hours): Temp Pulse Resp BP Pulse Ox 98.1 F 70 20 122/80 97 08/31/17 08:17 08/31/17 08:17 08/31/17 08:17 08/31/17 08:17 08/31/17 08:17 Intake and Output: 08/31/17 08/31/17 06:59 18:59 Intake Total 400 Balance 400 - Medications Medications: Current Medications Aspirin (Ecotrin) 81 mg PO DAILY [facility] Last Admin: 08/31/17 09:52 Dose: 81 mg Donepezil HCl (Aricept) 10 mg PO [facility] Last Admin: 08/30/17 22:20 Dose: 10 mg Famotidine (Pepcid) 20 mg PO DAILY [facility] Last Admin: 08/31/17 09:51 Dose: 20 mg Fluticasone Propionate (Flonase) 2 spr IZAIAH DAILY [facility] Last Admin: 08/31/17 09:52 Dose: 2 sprays Folic Acid (Folic Acid) 1 mg PO DAILY [facility] Last Admin: 08/31/17 09:52 Dose: 1 mg Losartan Potassium (Cozaar) 25 mg PO DAILY [facility] Last Admin: 08/31/17 09:52 Dose: 25 mg Memantine (Namenda) 10 mg PO DAILY [facility] Last Admin: 08/31/17 09:51 Dose: 10 mg Rosuvastatin Calcium (Crestor) 2.5 mg PO [facility] Last Admin: 08/30/17 22:20 Dose: 2.5 mg - Labs Labs: 08/27/17 08:20 08/27/17 08:20 PT 11.8 SECONDS (9.7-12.2) 06/21/17 22:04 INR 1.1 06/21/17 22:04 APTT 32 SECONDS (21-34) 06/21/17 22:04 - Head Exam Head Exam: ATRAUMATIC, NORMAL INSPECTION, NORMOCEPHALIC - Eye Exam Eye Exam: EOMI, Normal appearance, PERRL. absent: Periorbital tenderness Pupil Exam: NORMAL ACCOMODATION, PERRL. absent: Irregular, Unequal - ENT Exam ENT Exam: Mucous Membranes Moist, Normal Oropharynx - Neck Exam Neck Exam: Full ROM. absent: Lymphadenopathy, Thyromegaly - Respiratory Exam Respiratory Exam: Clear to Ausculation Bilateral, NORMAL BREATHING PATTERN. absent: Chest Wall Tenderness, Prolonged Expiratory Phase, Respiratory Distress - Cardiovascular Exam Cardiovascular Exam: REGULAR RHYTHM, RRR, +S1, +S2. absent: Gallop, Rubs - GI/Abdominal Exam GI & Abdominal Exam: Soft, Normal Bowel Sounds. absent: Rigid, Hyperactive Bowel Sounds - Extremities Exam Extremities Exam: Full ROM, Normal Inspection. absent: Joint Swelling, Pedal Edema, Tenderness - Back Exam Back Exam: NORMAL INSPECTION. absent: CVA tenderness (L), CVA tenderness (R), paraspinal tenderness - Neurological Exam Neurological Exam: Alert, Awake, CN II-XII Intact - Psychiatric Exam Psychiatric exam: Normal Affect, Normal Mood - Skin Skin Exam: Dry, Intact, Normal Color, Warm Assessment and Plan - Assessment and Plan (Free Text) Plan: 1.) Family History of Alzheimer's Disease Early Onset of Dementia * Family Hx: patient had Alzheimer's Disease at age 71 * Patient was told by a neurologist he has early signs of dementia * Psych consult Dr. Valente --> help appreciated * CT scan of the head is negative * X-ray shows a apical granuloma * Neurology Dr. Manzanares-->help appreciated * Completed EEG 07/07/17 * Discussed patient may complete further workup as outpatient. * negative heavy metal screen * Repeat MRI 07/09: no acute intracranial abnormality. Mild chronic microangiopathic changes and mild age-related global parenchymal volume loss. Please note workup is in prior admission when patient eloped on discharge. * CT scan of the chest is negative and unremarkable * UDS is negative * UA: urine only + for ketones * Brain MRI: Limited motion degraded study. No evidence of acute hemorrhage or infarct. Minor chronic white matter ischemic changes are felt be present. Moderate generalized volume loss. * RPR: nonreactive * HIV: negative * TSH: within normal and repeat within normal * Folate: normal and repeat within normal * B12: normal and repeat within normal * Recommended to patient to follow-up with neurology outpatient and to establish care in the [facility] upon discharge Medications: * Aricept 10mg PO qHS * Namenda 10mg bid * Folic acid 1mg PO daily * Crestor 2.5mg PO HS 2.) Anemia-->Resolved * Within normal * Monitor 3) Cough ---> Resolved -Reports for the past two days. -Afebrile and no leukocytosis. Will continue to monitor. 4) Hypokalemia-->resolved * resolved 5) Abnormal Chest xray-->resolved * CT Chest: no acute pathology noted; official report in the computer 6) Impaired glucose tolerance * Hgba1c: 5.7 * Will need check in one year for a1c to prevent diabetes 7) HTN-->Chronic * continue home Cozaar 25mg PO daily * Aspirin 81mg PO daily * 2 gram diet 8) Nasal congestion -Patient reports nasal congestion drying quicker after using flonase. -Continue Flonase -Chest xray: negative Prophylaxis * Pepcid 20mg PO BID * Patient is ambulatory. * SCDs * Appointed Wind Turbine Engineer: Court appointed, Mr. Los Henry, [address] [place] [id number] ; Temporary Guardian is Dangelo Thomas. Disposition: State guardianship approved. Patient still awaiting placement. Will continue to follow. <Tamera Sawyer V - Last Filed: 09/01/17 09:40> Objective - Vital Signs/Intake and Output Vital Signs (last 24 hours): Temp Pulse Resp BP Pulse Ox 97.6 F 78 20 117/85 98 09/01/17 07:42 09/01/17 07:42 09/01/17 07:42 09/01/17 07:42 09/01/17 07:42 Intake and Output: 09/01/17 09/01/17 06:59 18:59 Intake Total 150 Balance 150 - Medications Medications: Current Medications Albuterol/Ipratropium (Duoneb 3 Mg/0.5 Mg (3 Ml) Ud) 3 ml INH RQ6 PRN PRN Reason: Shortness of Breath Aspirin (Ecotrin) 81 mg PO DAILY [facility] Last Admin: 08/31/17 09:52 Dose: 81 mg Donepezil HCl (Aricept) 10 mg PO HS [facility] Last Admin: 08/31/17 21:41 Dose: 10 mg Famotidine (Pepcid) 20 mg PO DAILY [facility] Last Admin: 08/31/17 09:51 Dose: 20 mg Fluticasone Propionate (Flonase) 1 spr IZAIAH BID [facility] Folic Acid (Folic Acid) 1 mg PO DAILY [facility] Last Admin: 08/31/17 09:52 Dose: 1 mg Guaifenesin/Codeine Phosphate (Guaifenesin/Codeine) 5 ml PO Q4H PRN PRN Reason: Cough and congestion Losartan Potassium (Cozaar) 25 mg PO DAILY [facility] Last Admin: 08/31/17 09:52 Dose: 25 mg Memantine (Namenda) 10 mg PO DAILY [facility] Last Admin: 08/31/17 09:51 Dose: 10 mg Rosuvastatin Calcium (Crestor) 2.5 mg PO HS [facility] Last Admin: 08/31/17 21:41 Dose: 2.5 mg - Labs Labs: 08/27/17 08:20 08/27/17 08:20 PT 11.8 SECONDS (9.7-12.2) 06/21/17 22:04 INR 1.1 06/21/17 22:04 APTT 32 SECONDS (21-34) 06/21/17 22:04 Attending/Attestation - Attestation I have personally seen and examined this patient.: Yes I have fully participated in the care of the patient.: Yes I have reviewed all pertinent clinical information, including history, physical exam and plan: Yes Notes (Text): This is a late computer entry for 08/31/17. Patient seen, examined and case discussed with day-time resident. Patient does have mild nasal congestion and sporadic dry cough. Repeat chest xray shows no active disease. No new updates from case/social work in regards to discharge planning. Assessment/Plan: 1.) Family History of Alzheimer's Disease Early Onset of Dementia * Family Hx: patient had Alzheimer's Disease at age 71 * Patient was told by a neurologist he has early signs of dementia * Psych consult Dr. Valente --> help appreciated * CT scan of the head is negative * X-ray shows a apical granuloma * Neurology Dr. Manzanares-->help appreciated * Completed EEG 07/07/17 * Discussed patient may complete further workup as outpatient. * negative heavy metal screen * Repeat MRI 07/09: no acute intracranial abnormality. Mild chronic microangiopathic changes and mild age-related global parenchymal volume loss. Please note workup is in prior admission when patient eloped on discharge. * CT scan of the chest is negative and unremarkable * UDS is negative * UA: urine only + for ketones * Brain MRI: Limited motion degraded study. No evidence of acute hemorrhage or infarct. Minor chronic white matter ischemic changes are felt be present. Moderate generalized volume loss. * RPR: nonreactive * HIV: negative * TSH: within normal and repeat within normal * Folate: normal and repeat within normal * B12: normal and repeat within normal * Recommended to patient to follow-up with neurology outpatient and to establish care in the [facility] clinic upon discharge Medications: * Aricept 10mg PO qHS * Namenda 10mg bid * Folic acid 1mg PO daily * Crestor 2.5mg PO HS 2.) Cough Nasal Congestion * Chest xray (08/30/17): no active disease * Flonase for nasal congestion 3.) Anemia-->Resolved * Within normal * Monitor 4.) Hypokalemia-->resolved * resolved 5) Abnormal Chest xray-->resolved * CT Chest: no acute pathology noted; official report in the computer 6.) Impaired glucose tolerance * Hgba1c: 5.7 * Will need check in one year for a1c to prevent over diabetes 7.) HTN-->Chronic * continue home Cozaar 25mg PO daily * Aspirin 81mg PO daily * 2 gram diet 8.) Prophylaxis * Pepcid 20mg PO BID * Patient is ambulatory. * SCDs * Appointed Wind Turbine Engineer Mr. Los Henry, [address] [facility] [address] * Temporary guardian: Mr Dangelo Thomas temporary guardian until 09/20/17 * Discharge planning underway.
[2017-08-31] MEDS: Rosuvastatin Calcium 2.5 mg Tab PO SCH (21:41)
--- NOTE | 2017-09-01 04:46 | CP.PCM.PN ---
<Jennifer Norris - Last Filed: 09/01/17 06:16> Subjective - Date & Time of Evaluation Date of Evaluation: 09/01/17 Time of Evaluation: 06:00 - Subjective Subjective: Medicine Progress Note: Patient was seen and examined at bedside in the AM. Per nursing, there were no acute events overnight. The patient is currently at his neurological baseline. The patient denies any lightheadedness, skin changes, fevers, chills , nausea, vomiting, headaches, syncopal episodes, abdominal pain, chest pain, shortness of breath, constipation ,diarrhea, or any other complaints. Objective - Vital Signs/Intake and Output Vital Signs (last 24 hours): Temp Pulse Resp BP Pulse Ox 98 F 88 16 111/76 99 08/31/17 23:10 08/31/17 23:10 08/31/17 23:10 08/31/17 23:10 08/31/17 23:10 Intake and Output: 08/31/17 09/01/17 18:59 06:59 Intake Total 600 150 Balance 600 150 - Medications Medications: Current Medications Aspirin (Ecotrin) 81 mg PO DAILY [facility] Last Admin: 08/31/17 09:52 Dose: 81 mg Donepezil HCl (Aricept) 10 mg PO HS [facility] Last Admin: 08/31/17 21:41 Dose: 10 mg Famotidine (Pepcid) 20 mg PO DAILY [facility] Last Admin: 08/31/17 09:51 Dose: 20 mg Fluticasone Propionate (Flonase) 2 spr IZAIAH DAILY [facility] Last Admin: 08/31/17 09:52 Dose: 2 sprays Folic Acid (Folic Acid) 1 mg PO DAILY [facility] Last Admin: 08/31/17 09:52 Dose: 1 mg Losartan Potassium (Cozaar) 25 mg PO DAILY [facility] Last Admin: 08/31/17 09:52 Dose: 25 mg Memantine (Namenda) 10 mg PO DAILY [facility] Last Admin: 08/31/17 09:51 Dose: 10 mg Rosuvastatin Calcium (Crestor) 2.5 mg PO HS [facility] Last Admin: 08/31/17 21:41 Dose: 2.5 mg - Labs Labs: 08/27/17 08:20 08/27/17 08:20 PT 11.8 SECONDS (9.7-12.2) 06/21/17 22:04 INR 1.1 06/21/17 22:04 APTT 32 SECONDS (21-34) 06/21/17 22:04 - Constitutional Appears: No Acute Distress - Head Exam Head Exam: ATRAUMATIC, NORMAL INSPECTION - Eye Exam Eye Exam: EOMI, Normal appearance - ENT Exam ENT Exam: Mucous Membranes Moist - Respiratory Exam Respiratory Exam: Clear to Ausculation Bilateral, NORMAL BREATHING PATTERN - Cardiovascular Exam Cardiovascular Exam: REGULAR RHYTHM, +S1, +S2 - GI/Abdominal Exam GI & Abdominal Exam: Soft, Normal Bowel Sounds. absent: Tenderness - Extremities Exam Extremities Exam: Normal Inspection - Neurological Exam Neurological Exam: Alert, Awake - Psychiatric Exam Psychiatric exam: Normal Affect - Skin Skin Exam: Normal Color, Warm Assessment and Plan - Assessment and Plan (Free Text) Assessment: Family History of Alzheimer's Disease Early Onset of Dementia * Family Hx: patient had Alzheimer's Disease at age 71 * Patient was told by a neurologist he has early signs of dementia * Psych consult Dr. Valente --> help appreciated * CT scan of the head is negative * X-ray shows a apical granuloma * Neurology Dr. Manzanares-->help appreciated * Completed EEG 07/07/17 * Discussed patient may complete further workup as outpatient. * negative heavy metal screen * Repeat MRI 07/09: no acute intracranial abnormality. Mild chronic microangiopathic changes and mild age-related global parenchymal volume loss. Please note workup is in prior admission when patient eloped on discharge. * CT scan of the chest is negative and unremarkable * UDS is negative * UA: urine only + for ketones * Brain MRI: Limited motion degraded study. No evidence of acute hemorrhage or infarct. Minor chronic white matter ischemic changes are felt be present. Moderate generalized volume loss. * RPR: nonreactive * HIV: negative * TSH: within normal and repeat within normal * Folate: normal and repeat within normal * B12: normal and repeat within normal * Recommended to patient to follow-up with neurology outpatient and to establish care in the [facility] clinic upon discharge Medications: * Aricept 10mg PO qHS * Namenda 10mg bid * Folic acid 1mg PO daily * Crestor 2.5mg PO HS Anemia-->Resolved * Within normal * Monitor Cough ---> Resolved -Reports for the past two days. -Afebrile and no leukocytosis. Will continue to monitor. Hypokalemia-->resolved * resolved Abnormal Chest xray-->resolved * CT Chest: no acute pathology noted; official report in the computer Impaired glucose tolerance * Hgba1c: 5.7 * Will need check in one year for a1c to prevent diabetes HTN-->Chronic * continue home Cozaar 25mg PO daily * Aspirin 81mg PO daily * 2 gram diet Nasal congestion -Patient reports nasal congestion drying quicker after using flonase. -Continue Flonase -Chest xray: negative Prophylaxis * Pepcid 20mg PO BID * Patient is ambulatory. * SCDs * Appointed Clinical Unit Educator: Court appointed, Mr. Los Henry, [address] [facility] [address] ; Temporary Guardian is Dangelo Thomas. Disposition: State guardianship approved. Patient still awaiting placement. Will continue to follow. <Tamera Sawyer V - Last Filed: 09/01/17 09:37> Objective - Vital Signs/Intake and Output Vital Signs (last 24 hours): Temp Pulse Resp BP Pulse Ox 97.6 F 78 20 117/85 98 09/01/17 07:42 09/01/17 07:42 09/01/17 07:42 09/01/17 07:42 09/01/17 07:42 Intake and Output: 09/01/17 09/01/17 06:59 18:59 Intake Total 150 Balance 150 - Medications Medications: Current Medications Aspirin (Ecotrin) 81 mg PO DAILY [facility] Last Admin: 08/31/17 09:52 Dose: 81 mg Donepezil HCl (Aricept) 10 mg PO HS [facility] Last Admin: 08/31/17 21:41 Dose: 10 mg Famotidine (Pepcid) 20 mg PO DAILY [facility] Last Admin: 08/31/17 09:51 Dose: 20 mg Fluticasone Propionate (Flonase) 2 spr IZAIAH DAILY [facility] Last Admin: 08/31/17 09:52 Dose: 2 sprays Folic Acid (Folic Acid) 1 mg PO DAILY [facility] Last Admin: 08/31/17 09:52 Dose: 1 mg Guaifenesin/Codeine Phosphate (Guaifenesin/Codeine) 5 ml PO Q4H PRN PRN Reason: Cough and congestion Losartan Potassium (Cozaar) 25 mg PO DAILY [facility] Last Admin: 08/31/17 09:52 Dose: 25 mg Memantine (Namenda) 10 mg PO DAILY [facility] Last Admin: 08/31/17 09:51 Dose: 10 mg Rosuvastatin Calcium (Crestor) 2.5 mg PO HS [facility] Last Admin: 08/31/17 21:41 Dose: 2.5 mg - Labs Labs: 08/27/17 08:20 08/27/17 08:20 PT 11.8 SECONDS (9.7-12.2) 06/21/17 22:04 INR 1.1 06/21/17 22:04 APTT 32 SECONDS (21-34) 06/21/17 22:04 Attending/Attestation - Attestation I have personally seen and examined this patient.: Yes I have fully participated in the care of the patient.: Yes I have reviewed all pertinent clinical information, including history, physical exam and plan: Yes Notes (Text): Patient seen, examined, case discussed with medical service representative. Patient denies acute complaints. No events overnight. Patient is ambulatory. Patient does reports mild nasal congestion. Patient reports dry cough. Patient reports he does no need cough syrup. There is a PRN for cough which is available. Patient does not recall correct date but always expresses disgust regarding Trump. Medications renewed. Patient is pending discharge planning coordinating between case, social, and guardian. Assessment/Plan: 1.) Family History of Alzheimer's Disease Early Onset of Dementia * Family Hx: patient had Alzheimer's Disease at age 71 * Patient was told by a neurologist he has early signs of dementia * Psych consult Dr. Valente --> help appreciated * CT scan of the head is negative * X-ray shows a apical granuloma * Neurology Dr. Manzanares-->help appreciated * Completed EEG 07/07/17 * Discussed patient may complete further workup as outpatient. * negative heavy metal screen * Repeat MRI 07/09: no acute intracranial abnormality. Mild chronic microangiopathic changes and mild age-related global parenchymal volume loss. Please note workup is in prior admission when patient eloped on discharge. * CT scan of the chest is negative and unremarkable * UDS is negative * UA: urine only + for ketones * Brain MRI: Limited motion degraded study. No evidence of acute hemorrhage or infarct. Minor chronic white matter ischemic changes are felt be present. Moderate generalized volume loss. * RPR: nonreactive * HIV: negative * TSH: within normal and repeat within normal * Folate: normal and repeat within normal * B12: normal and repeat within normal * Recommended to patient to follow-up with neurology outpatient and to establish care in the [facility] upon discharge Medications: * Aricept 10mg PO qHS * Namenda 10mg bid * Folic acid 1mg PO daily * Crestor 2.5mg PO HS 2.) Cough Nasal Congestion * Chest xray (08/30/17): no active disease * Duonebs PRN shortness of breathe * Flonase 1 puff spray inhaled BID * Guafensin/codine 5ml PO Q4H PRN cough 3.) Anemia-->Resolved * Within normal * Monitor 4.) Hypokalemia-->resolved * resolved 5) Abnormal Chest xray-->resolved * CT Chest: no acute pathology noted; official report in the computer 6.) Impaired glucose tolerance * Hgba1c: 5.7 * Will need check in one year for a1c to prevent over diabetes 7.) HTN-->Chronic * continue home Cozaar 25mg PO daily * Aspirin 81mg PO daily * 2 gram diet 8.) Prophylaxis * Pepcid 20mg PO BID * Patient is ambulatory. * SCDs * Appointed Clinical Unit Educator Mr. Los eHnry, [address] [place] [address] * Temporary guardian: Mr Dangelo Thomas temporary guardian until 09/20/17 * Discharge planning underway. * Disposition: Pending coordination between guardian, admitted attorneys, case and social work for discharge planning. Patient has dry cough with mild nasal congestion. PRNs in place.
[2017-09-01] MEDS ORDERED: guaiFENesin-Codeine 100-10mg/5ml Syrup (10ml) UD PO PRN (09:27)
[2017-09-01] MEDS ORDERED: Albuterol-Ipratrop 3 mg / 0.5 (3 ml) UD INH PRN (09:35)
[2017-09-01] MEDS: Fluticasone Nasal 50 mcg/Spray NAS SCH ×2 (11:00→18:33)
[2017-09-01] MEDS: Rosuvastatin Calcium 2.5 mg Tab PO SCH (21:56)
--- NOTE | 2017-09-02 00:48 | CP.PCM.PN ---
<Jennifer Norris - Last Filed: 09/02/17 06:09> Subjective - Date & Time of Evaluation Date of Evaluation: 09/02/17 Time of Evaluation: 06:00 - Subjective Subjective: Medicine Progress Note: Patient was seen and examined at bedside in the AM. Per nursing, there were no acute events overnight. The patient is currently at his neurological baseline. The patient denies any lightheadedness, skin changes, fevers, chills , nausea, vomiting, headaches, syncopal episodes, abdominal pain, chest pain, shortness of breath, constipation ,diarrhea, or any other complaints. Objective - Vital Signs/Intake and Output Vital Signs (last 24 hours): Temp Pulse Resp BP Pulse Ox 97.5 F L 82 20 107/70 99 09/01/17 23:29 09/01/17 23:29 09/01/17 23:29 09/01/17 23:29 09/01/17 23:29 Intake and Output: 09/01/17 09/02/17 18:59 06:59 Intake Total 600 500 Balance 600 500 - Medications Medications: Current Medications Albuterol/Ipratropium (Duoneb 3 Mg/0.5 Mg (3 Ml) Ud) 3 ml INH RQ6 PRN PRN Reason: Shortness of Breath Aspirin (Ecotrin) 81 mg PO DAILY [facility] Last Admin: 09/01/17 10:45 Dose: 81 mg Donepezil HCl (Aricept) 10 mg PO HS [facility] Last Admin: 09/01/17 21:56 Dose: 10 mg Famotidine (Pepcid) 20 mg PO DAILY [facility] Last Admin: 09/01/17 10:45 Dose: 20 mg Fluticasone Propionate (Flonase) 1 spr IZAIAH BID [facility] Last Admin: 09/01/17 18:33 Dose: 1 spr Folic Acid (Folic Acid) 1 mg PO DAILY [facility] Last Admin: 09/01/17 10:45 Dose: 1 mg Guaifenesin/Codeine Phosphate (Guaifenesin/Codeine) 5 ml PO Q4H PRN PRN Reason: Cough and congestion Losartan Potassium (Cozaar) 25 mg PO DAILY [facility] Last Admin: 09/01/17 10:45 Dose: 25 mg Memantine (Namenda) 10 mg PO DAILY [facility] Last Admin: 09/01/17 10:45 Dose: 10 mg Rosuvastatin Calcium (Crestor) 2.5 mg PO HS [facility] Last Admin: 09/01/17 21:56 Dose: 2.5 mg - Labs Labs: 08/27/17 08:20 08/27/17 08:20 PT 11.8 SECONDS (9.7-12.2) 06/21/17 22:04 INR 1.1 06/21/17 22:04 APTT 32 SECONDS (21-34) 06/21/17 22:04 - Constitutional Appears: No Acute Distress - Head Exam Head Exam: NORMAL INSPECTION - Eye Exam Eye Exam: Normal appearance - ENT Exam ENT Exam: Mucous Membranes Moist - Respiratory Exam Respiratory Exam: NORMAL BREATHING PATTERN - Cardiovascular Exam Cardiovascular Exam: REGULAR RHYTHM, +S1, +S2 - GI/Abdominal Exam GI & Abdominal Exam: Soft, Normal Bowel Sounds. absent: Tenderness - Extremities Exam Extremities Exam: Normal Inspection - Neurological Exam Neurological Exam: Alert, Awake - Psychiatric Exam Psychiatric exam: Normal Affect, Normal Mood - Skin Skin Exam: Normal Color, Warm Assessment and Plan - Assessment and Plan (Free Text) Assessment: Family History of Alzheimer's Disease Early Onset of Dementia * Family Hx: patient had Alzheimer's Disease at age 71 * Patient was told by a neurologist he has early signs of dementia * Psych consult Dr. Valente --> help appreciated * CT scan of the head is negative * X-ray shows a apical granuloma * Neurology Dr. Manzanares-->help appreciated * Completed EEG 07/07/17 * Discussed patient may complete further workup as outpatient. * negative heavy metal screen * Repeat MRI 07/09: no acute intracranial abnormality. Mild chronic microangiopathic changes and mild age-related global parenchymal volume loss. Please note workup is in prior admission when patient eloped on discharge. * CT scan of the chest is negative and unremarkable * UDS is negative * UA: urine only + for ketones * Brain MRI: Limited motion degraded study. No evidence of acute hemorrhage or infarct. Minor chronic white matter ischemic changes are felt be present. Moderate generalized volume loss. * RPR: nonreactive * HIV: negative * TSH: within normal and repeat within normal * Folate: normal and repeat within normal * B12: normal and repeat within normal * Recommended to patient to follow-up with neurology outpatient and to establish care in the [facility] upon discharge Medications: * Aricept 10mg PO qHS * Namenda 10mg bid * Folic acid 1mg PO daily * Crestor 2.5mg PO HS Anemia-->Resolved * Within normal * Monitor Cough ---> Resolved -Reports for the past two days. -Afebrile and no leukocytosis. Will continue to monitor. Hypokalemia-->resolved * resolved Abnormal Chest xray-->resolved * CT Chest: no acute pathology noted; official report in the computer Impaired glucose tolerance * Hgba1c: 5.7 * Will need check in one year for a1c to prevent diabetes HTN-->Chronic * continue home Cozaar 25mg PO daily * Aspirin 81mg PO daily * 2 gram diet Nasal congestion -Patient reports nasal congestion drying quicker after using flonase. -Continue Flonase -Chest xray: negative Prophylaxis * Pepcid 20mg PO BID * Patient is ambulatory. * SCDs * Appointed Floor Waxer: Court appointed, Mr. Los Henry, [address] [place] [id number] ; Temporary Guardian is Dangelo Thomas. Disposition: State guardianship approved. Patient still awaiting placement. Will continue to follow. <Tamera Sawyer V - Last Filed: 09/02/17 09:54> Objective - Vital Signs/Intake and Output Vital Signs (last 24 hours): Temp Pulse Resp BP Pulse Ox 98.0 F 80 20 126/89 96 09/02/17 08:37 09/02/17 08:37 09/02/17 08:37 09/02/17 08:37 09/02/17 08:37 Intake and Output: 09/02/17 09/02/17 06:59 18:59 Intake Total 860 Balance 860 - Medications Medications: Current Medications Albuterol/Ipratropium (Duoneb 3 Mg/0.5 Mg (3 Ml) Ud) 3 ml INH RQ6 PRN PRN Reason: Shortness of Breath Aspirin (Ecotrin) 81 mg PO DAILY [facility] Last Admin: 09/02/17 09:27 Dose: 81 mg Donepezil HCl (Aricept) 10 mg PO HS [facility] Last Admin: 09/01/17 21:56 Dose: 10 mg Famotidine (Pepcid) 20 mg PO DAILY [facility] Last Admin: 02/04/18 09:28 Dose: 20 mg Fluticasone Propionate (Flonase) 1 spr IZAIAH BID [facility] Last Admin: 09/02/17 09:27 Dose: 1 spr Folic Acid (Folic Acid) 1 mg PO DAILY [facility] Last Admin: 09/02/17 09:28 Dose: 1 mg Guaifenesin/Codeine Phosphate (Guaifenesin/Codeine) 5 ml PO Q4H PRN PRN Reason: Cough and congestion Losartan Potassium (Cozaar) 25 mg PO DAILY [facility] Last Admin: 09/02/17 09:28 Dose: 25 mg Memantine (Namenda) 10 mg PO DAILY [facility] Last Admin: 09/02/17 09:27 Dose: 10 mg Rosuvastatin Calcium (Crestor) 2.5 mg PO HS [facility] Last Admin: 09/01/17 21:56 Dose: 2.5 mg - Labs Labs: 08/27/17 08:20 08/27/17 08:20 PT 11.8 SECONDS (9.7-12.2) 06/21/17 22:04 INR 1.1 06/21/17 22:04 APTT 32 SECONDS (21-34) 06/21/17 22:04 Attending/Attestation - Attestation I have personally seen and examined this patient.: Yes I have fully participated in the care of the patient.: Yes I have reviewed all pertinent clinical information, including history, physical exam and plan: Yes Notes (Text): Patient seen, examined, case discussed with biomedical engineering supervisor. Patient denies acute complaints. No events overnight. Patient is ambulatory. Patient does nasal congestion has resolved. cough has resolved. Patient is pending discharge planning coordinating between case, social, and guardian. Assessment/Plan: 1.) Family History of Alzheimer's Disease Early Onset of Dementia * Family Hx: patient had Alzheimer's Disease at age 71 * Patient was told by a neurologist he has early signs of dementia * Psych consult Dr. Valente --> help appreciated * CT scan of the head is negative * X-ray shows a apical granuloma * Neurology Dr. Manzanares-->help appreciated * Completed EEG 07/07/17 * Discussed patient may complete further workup as outpatient. * negative heavy metal screen * Repeat MRI 07/09: no acute intracranial abnormality. Mild chronic microangiopathic changes and mild age-related global parenchymal volume loss. Please note workup is in prior admission when patient eloped on discharge. * CT scan of the chest is negative and unremarkable * UDS is negative * UA: urine only + for ketones * Brain MRI: Limited motion degraded study. No evidence of acute hemorrhage or infarct. Minor chronic white matter ischemic changes are felt be present. Moderate generalized volume loss. * RPR: nonreactive * HIV: negative * TSH: within normal and repeat within normal * Folate: normal and repeat within normal * B12: normal and repeat within normal * Recommended to patient to follow-up with neurology outpatient and to establish care in the [facility] upon discharge Medications: * Aricept 10mg PO qHS * Namenda 10mg bid * Folic acid 1mg PO daily * Crestor 2.5mg PO HS 2.) Cough Nasal Congestion * Chest xray (08/30/17): no active disease * Duonebs PRN shortness of breathe * Flonase 1 puff spray inhaled BID * Guafensin/codine 5ml PO Q4H PRN cough 3.) Anemia-->Resolved * Within normal * Monitor 4.) Hypokalemia-->resolved * resolved 5) Abnormal Chest xray-->resolved * CT Chest: no acute pathology noted; official report in the computer 6.) Impaired glucose tolerance * Hgba1c: 5.7 * Will need check in one year for a1c to prevent over diabetes 7.) HTN-->Chronic * continue home Cozaar 25mg PO daily * Aspirin 81mg PO daily * 2 gram diet 8.) Prophylaxis * Pepcid 20mg PO BID * Patient is ambulatory. * SCDs * Appointed Floor Waxer Mr. Los Henry, [address] [facility] [address] * Temporary guardian: Mr Dangelo Thomas temporary guardian until 09/20/17 * Discharge planning underway. * Disposition: Pending coordination between guardian, prosecuting attorney, case and social work for discharge planning.
[2017-09-02] MEDS: Fluticasone Nasal 50 mcg/Spray NAS SCH ×2 (09:27→17:25)
[2017-09-02] MEDS: Rosuvastatin Calcium 2.5 mg Tab PO SCH (22:03)
--- NOTE | 2017-09-03 06:59 | CP.PCM.PN ---
Subjective - Date & Time of Evaluation Date of Evaluation: 09/03/17 Time of Evaluation: 06:57 - Subjective Subjective: Mr. Nelson was seen and examined at the bedside. He is awake and alert. He denies any headache, dizziness, lightheartedness, nausea, or vomiting. He is able to follow commands. He remains on 1:1 sitter for patient safety. There was no untoward events overnight. Objective - Vital Signs/Intake and Output Vital Signs (last 24 hours): Temp Pulse Resp BP Pulse Ox 98.6 F 83 20 125/82 98 09/03/17 00:00 09/03/17 00:00 09/03/17 00:00 09/03/17 00:00 09/03/17 00:00 Intake and Output: 09/02/17 09/03/17 18:59 06:59 Intake Total 600 640 Balance 600 640 - Medications Medications: Current Medications Albuterol/Ipratropium (Duoneb 3 Mg/0.5 Mg (3 Ml) Ud) 3 ml INH RQ6 PRN PRN Reason: Shortness of Breath Aspirin (Ecotrin) 81 mg PO DAILY [facility] Last Admin: 09/02/17 09:27 Dose: 81 mg Donepezil HCl (Aricept) 10 mg PO HS [facility] Last Admin: 09/02/17 22:03 Dose: 10 mg Famotidine (Pepcid) 20 mg PO DAILY [facility] Last Admin: 09/02/17 09:28 Dose: 20 mg Fluticasone Propionate (Flonase) 1 spr IZAIAH BID [facility] Last Admin: 09/02/17 17:25 Dose: 1 spr Folic Acid (Folic Acid) 1 mg PO DAILY [facility] Last Admin: 09/02/17 09:28 Dose: 1 mg Guaifenesin/Codeine Phosphate (Guaifenesin/Codeine) 5 ml PO Q4H PRN PRN Reason: Cough and congestion Losartan Potassium (Cozaar) 25 mg PO DAILY [facility] Last Admin: 09/02/17 09:28 Dose: 25 mg Memantine (Namenda) 10 mg PO DAILY [facility] Last Admin: 09/02/17 09:27 Dose: 10 mg Rosuvastatin Calcium (Crestor) 2.5 mg PO HS [facility] Last Admin: 09/02/17 22:03 Dose: 2.5 mg - Labs Labs: 08/27/17 08:20 08/27/17 08:20 PT 11.8 SECONDS (9.7-12.2) 06/21/17 22:04 INR 1.1 06/21/17 22:04 APTT 32 SECONDS (21-34) 06/21/17 22:04 - Constitutional Appears: No Acute Distress - Head Exam Head Exam: NORMAL INSPECTION - Neurological Exam Neurological Exam: Alert, Awake Neuro motor strength exam: Left Upper Extremity: 5, Right Upper Extremity: 5, Left Lower Extremity: 5, Right Lower Extremity: 5 Additional comments: Neurological unchanged from previous examination. Assessment and Plan (1) Dementia Assessment & Plan: Case discussed with Dr. Rader, continue all current medical regimen. Since the patient is at his baseline, neurology is signing off from this case. Please re- consult if there is neurological status deviation. Status: Chronic
[2017-09-03 07:42] LABS: ALB/GLOB RATIO 1.2 (1.0-2.1); ALBUMIN 3.4 g/dL (3.5-5.0); ALT/SGPT 35 U/L (21-72); AST/SGOT 24 U/L (17-59); BLOOD UREA NITROGEN 11 mg/dL (9-20); CALCIUM 8.6 mg/dl (8.6-10.4); GFR AFRICAN-AMERICAN > 60; GFR NON-AFRICAN AMERICAN > 60
[2017-09-03 07:49] LABS: BASO % 0.5 % (0.0-2.0); EOS # 0.1 K/uL (0.0-0.7); EOS % 2.2 % (0.0-4.0); HEMOGLOBIN 14.1 g/dL (12.0-18.0); LYMPH # 1.7 K/uL (1.0-4.3); LYMPH % 29.9 % (20.0-40.0); MEAN CELL VOLUME 91.6 fL (80.0-94.0); MEAN CORPUSCULAR HGB CONC 34.9 g/dL (33.0-37.0); MEAN PLATELET VOLUME 7.1 fL (7.2-11.7); MONO # 0.6 K/uL (0.0-0.8); MONO % 9.9 % (0.0-10.0); NEUT # 3.3 K/uL (1.8-7.0); NEUT % 57.5 % (50.0-75.0); NRBC % 0.1 % (0.0-2.0); RBC 4.41 Mil/uL (4.40-5.90); RED CELL DISTRIBUTION WIDTH 12.7 % (11.5-14.5); WHITE BLOOD COUNT 5.7 K/uL (4.8-10.8)
[2017-09-03] MEDS: Fluticasone Nasal 50 mcg/Spray NAS SCH ×2 (10:55→17:18)
--- NOTE | 2017-09-03 14:32 | CP.PCM.PN ---
Subjective - Date & Time of Evaluation Date of Evaluation: 09/03/17 Time of Evaluation: 06:32 - Subjective Subjective: Medicine Progress Note: Patient was seen and examined at bedside in the AM. Per nursing, there were no acute events overnight. The patient is currently at his neurological baseline. The patient denies any lightheadedness, skin changes, fevers, chills , nausea, vomiting, headaches, syncopal episodes, abdominal pain, chest pain, shortness of breath, constipation ,diarrhea, or any other complain Objective - Vital Signs/Intake and Output Vital Signs (last 24 hours): Temp Pulse Resp BP Pulse Ox 97.9 F 74 20 111/69 96 09/03/17 07:53 09/03/17 07:53 09/03/17 07:53 09/03/17 07:53 09/03/17 07:53 Intake and Output: 09/03/17 09/03/17 06:59 18:59 Intake Total 640 Balance 640 - Medications Medications: Current Medications Albuterol/Ipratropium (Duoneb 3 Mg/0.5 Mg (3 Ml) Ud) 3 ml INH RQ6 PRN PRN Reason: Shortness of Breath Aspirin (Ecotrin) 81 mg PO DAILY REPLACED BY [facility] Last Admin: 09/03/17 10:56 Dose: 81 mg Donepezil HCl (Aricept) 10 mg PO HS REPLACED BY [facility] Last Admin: 09/02/17 22:03 Dose: 10 mg Famotidine (Pepcid) 20 mg PO DAILY REPLACED BY [facility] Last Admin: 09/03/17 10:56 Dose: 20 mg Fluticasone Propionate (Flonase) 1 spr IZAIAH BID REPLACED BY [facility] Last Admin: 09/03/17 10:55 Dose: 1 spr Folic Acid (Folic Acid) 1 mg PO DAILY REPLACED BY [facility] Last Admin: 09/03/17 10:56 Dose: 1 mg Guaifenesin/Codeine Phosphate (Guaifenesin/Codeine) 5 ml PO Q4H PRN PRN Reason: Cough and congestion Losartan Potassium (Cozaar) 25 mg PO DAILY REPLACED BY [facility] Last Admin: 09/03/17 10:56 Dose: 25 mg Memantine (Namenda) 10 mg PO DAILY REPLACED BY [facility] Last Admin: 09/03/17 10:56 Dose: 10 mg Rosuvastatin Calcium (Crestor) 2.5 mg PO HS REPLACED BY [facility] Last Admin: 09/02/17 22:03 Dose: 2.5 mg - Labs Labs: 09/03/17 06:54 09/03/17 06:54 PT 11.8 SECONDS (9.7-12.2) 06/21/17 22:04 INR 1.1 06/21/17 22:04 APTT 32 SECONDS (21-34) 06/21/17 22:04 - Head Exam Head Exam: ATRAUMATIC, NORMAL INSPECTION, NORMOCEPHALIC - Eye Exam Eye Exam: EOMI, Normal appearance, PERRL. absent: Periorbital tenderness Pupil Exam: NORMAL ACCOMODATION, PERRL. absent: Irregular, Unequal - ENT Exam ENT Exam: Mucous Membranes Moist, Normal Exam, Normal Oropharynx - Neck Exam Neck Exam: Normal Inspection. absent: Lymphadenopathy, Thyromegaly - Respiratory Exam Respiratory Exam: Clear to Ausculation Bilateral, NORMAL BREATHING PATTERN. absent: Chest Wall Tenderness, Prolonged Expiratory Phase, Respiratory Distress - Cardiovascular Exam Cardiovascular Exam: REGULAR RHYTHM, +S1, +S2 - GI/Abdominal Exam GI & Abdominal Exam: Soft, Normal Bowel Sounds. absent: Rigid, Hyperactive Bowel Sounds - Extremities Exam Extremities Exam: Full ROM, Normal Inspection. absent: Joint Swelling, Pedal Edema - Back Exam Back Exam: NORMAL INSPECTION. absent: CVA tenderness (L), CVA tenderness (R), paraspinal tenderness - Neurological Exam Neurological Exam: Alert, Awake, CN II-XII Intact, Normal Gait - Psychiatric Exam Psychiatric exam: Normal Affect, Normal Mood - Skin Skin Exam: Dry, Intact Assessment and Plan - Assessment and Plan (Free Text) Plan: Family History of Alzheimer's Disease Early Onset of Dementia * Family Hx: patient had Alzheimer's Disease at age 71 * Patient was told by a neurologist he has early signs of dementia * Psych consult Dr. Valente --> help appreciated * CT scan of the head is negative * X-ray shows a apical granuloma * Neurology Dr. Manzanares-->help appreciated * Completed EEG 07/07/17 * Discussed patient may complete further workup as outpatient. * negative heavy metal screen * Repeat MRI 07/09: no acute intracranial abnormality. Mild chronic microangiopathic changes and mild age-related global parenchymal volume loss. Please note workup is in prior admission when patient eloped on discharge. * CT scan of the chest is negative and unremarkable * UDS is negative * UA: urine only + for ketones * Brain MRI: Limited motion degraded study. No evidence of acute hemorrhage or infarct. Minor chronic white matter ischemic changes are felt be present. Moderate generalized volume loss. * RPR: nonreactive * HIV: negative * TSH: within normal and repeat within normal * Folate: normal and repeat within normal * B12: normal and repeat within normal * Recommended to patient to follow-up with neurology outpatient and to establish care in the [facility] upon discharge Medications: * Aricept 10mg PO qHS * Namenda 10mg bid * Folic acid 1mg PO daily * Crestor 2.5mg PO HS Anemia-->Resolved * Within normal * Monitor Cough ---> Resolved -Reports for the past two days. -Afebrile and no leukocytosis. Will continue to monitor. Hypokalemia-->resolved * resolved Abnormal Chest xray-->resolved * CT Chest: no acute pathology noted; official report in the computer Impaired glucose tolerance * Hgba1c: 5.7 * Will need check in one year for a1c to prevent diabetes HTN-->Chronic * continue home Cozaar 25mg PO daily * Aspirin 81mg PO daily * 2 gram diet Nasal congestion -Patient reports nasal congestion drying quicker after using flonase. -Continue Flonase -Chest xray: negative Prophylaxis * Pepcid 20mg PO BID * Patient is ambulatory. * SCDs * Appointed Pole Truck Driver: Court appointed, Mr. Los Luke Carl, [address] [facility] [address] ; Temporary Guardian is Dangelo Thomas. Disposition: State guardianship approved. Patient still awaiting placement. Will continue to follow.
[2017-09-03] MEDS: Rosuvastatin Calcium 2.5 mg Tab PO SCH (21:11)
[2017-09-04] MEDS: Fluticasone Nasal 50 mcg/Spray NAS SCH ×2 (09:17→17:24)
--- NOTE | 2017-09-04 12:52 | CP.PCM.PN ---
<[place] - Last Filed: 09/04/17 17:36> Subjective - Date & Time of Evaluation Date of Evaluation: 09/04/17 Time of Evaluation: 06:52 - Subjective Subjective: Patient was seen and examined at bedside in the AM. Per nursing, there were no acute events overnight. The patient is currently at his neurological baseline. The patient denies any lightheadedness, skin changes, fevers, chills , nausea, vomiting, headaches, syncopal episodes, abdominal pain, chest pain, shortness of breath, constipation ,diarrhea, or any other complain Objective - Vital Signs/Intake and Output Vital Signs (last 24 hours): Temp Pulse Resp BP Pulse Ox 97.4 F L 86 20 122/90 96 09/04/17 08:41 09/04/17 08:41 09/04/17 08:41 09/04/17 08:41 09/04/17 08:41 Intake and Output: 09/04/17 09/04/17 06:59 18:59 Intake Total 120 Balance 120 - Medications Medications: Current Medications Albuterol/Ipratropium (Duoneb 3 Mg/0.5 Mg (3 Ml) Ud) 3 ml INH RQ6 PRN PRN Reason: Shortness of Breath Aspirin (Ecotrin) 81 mg PO DAILY [facility] Last Admin: 09/04/17 09:17 Dose: 81 mg Donepezil HCl (Aricept) 10 mg PO HS [facility] Last Admin: 09/03/17 21:11 Dose: 10 mg Famotidine (Pepcid) 20 mg PO DAILY [facility] Last Admin: 09/04/17 09:17 Dose: 20 mg Fluticasone Propionate (Flonase) 1 spr IZAIAH BID [facility] Last Admin: 09/04/17 09:17 Dose: 1 spr Folic Acid (Folic Acid) 1 mg PO DAILY [facility] Last Admin: 09/04/17 09:17 Dose: 1 mg Guaifenesin/Codeine Phosphate (Guaifenesin/Codeine) 5 ml PO Q4H PRN PRN Reason: Cough and congestion Losartan Potassium (Cozaar) 25 mg PO DAILY [facility] Last Admin: 09/04/17 09:17 Dose: 25 mg Memantine (Namenda) 10 mg PO DAILY [facility] Last Admin: 09/04/17 09:17 Dose: 10 mg Rosuvastatin Calcium (Crestor) 2.5 mg PO HS [facility] Last Admin: 09/03/17 21:11 Dose: 2.5 mg - Labs Labs: 09/03/17 06:54 09/03/17 06:54 PT 11.8 SECONDS (9.7-12.2) 06/21/17 22:04 INR 1.1 06/21/17 22:04 APTT 32 SECONDS (21-34) 06/21/17 22:04 - Head Exam Head Exam: ATRAUMATIC, NORMAL INSPECTION, NORMOCEPHALIC - Eye Exam Eye Exam: EOMI, Normal appearance, PERRL Pupil Exam: NORMAL ACCOMODATION, PERRL - ENT Exam ENT Exam: Mucous Membranes Moist, Normal Exam, Normal Oropharynx - Neck Exam Neck Exam: Normal Inspection. absent: Lymphadenopathy, Thyromegaly - Respiratory Exam Respiratory Exam: Clear to Ausculation Bilateral, NORMAL BREATHING PATTERN. absent: Prolonged Expiratory Phase, Respiratory Distress - Cardiovascular Exam Cardiovascular Exam: REGULAR RHYTHM, RRR, +S1, +S2. absent: Rubs - GI/Abdominal Exam GI & Abdominal Exam: Soft, Normal Bowel Sounds. absent: Rigid, Hyperactive Bowel Sounds - Extremities Exam Extremities Exam: Full ROM. absent: Tenderness - Back Exam Back Exam: NORMAL INSPECTION. absent: CVA tenderness (L), CVA tenderness (R), paraspinal tenderness - Neurological Exam Neurological Exam: Alert, Awake, CN II-XII Intact - Psychiatric Exam Psychiatric exam: Normal Affect, Normal Mood Assessment and Plan - Assessment and Plan (Free Text) Plan: Family History of Alzheimer's Disease Early Onset of Dementia * Family Hx: patient had Alzheimer's Disease at age 71 * Patient was told by a neurologist he has early signs of dementia * Psych consult Dr. Valente --> help appreciated * CT scan of the head is negative * X-ray shows a apical granuloma * Neurology Dr. Manzanares-->help appreciated * Completed EEG 07/07/17 * Discussed patient may complete further workup as outpatient. * negative heavy metal screen * Repeat MRI 07/09: no acute intracranial abnormality. Mild chronic microangiopathic changes and mild age-related global parenchymal volume loss. Please note workup is in prior admission when patient eloped on discharge. * CT scan of the chest is negative and unremarkable * UDS is negative * UA: urine only + for ketones * Brain MRI: Limited motion degraded study. No evidence of acute hemorrhage or infarct. Minor chronic white matter ischemic changes are felt be present. Moderate generalized volume loss. * RPR: nonreactive * HIV: negative * TSH: within normal and repeat within normal * Folate: normal and repeat within normal * B12: normal and repeat within normal * Recommended to patient to follow-up with neurology outpatient and to establish care in the [facility] upon discharge Medications: * Aricept 10mg PO qHS * Namenda 10mg bid * Folic acid 1mg PO daily * Crestor 2.5mg PO HS Anemia-->Resolved * Within normal * Monitor Cough ---> Resolved -Reports for the past two days. -Afebrile and no leukocytosis. Will continue to monitor. Hypokalemia-->resolved * resolved Abnormal Chest xray-->resolved * CT Chest: no acute pathology noted; official report in the computer Impaired glucose tolerance * Hgba1c: 5.7 * Will need check in one year for a1c to prevent diabetes HTN-->Chronic * continue home Cozaar 25mg PO daily * Aspirin 81mg PO daily * 2 gram diet Nasal congestion -Patient reports nasal congestion drying quicker after using flonase. -Continue Flonase -Chest xray: negative Prophylaxis * Pepcid 20mg PO BID * Patient is ambulatory. * SCDs * Appointed Hook Up: Court appointed, Mr. Los Henry, [address] [place] [address] ; Temporary Guardian is Dangelo Thomas. Disposition: Court date set for September 20, 2017. <Gary Damon - Last Filed: 09/04/17 19:15> Objective - Vital Signs/Intake and Output Vital Signs (last 24 hours): Temp Pulse Resp BP Pulse Ox 98.5 F 77 20 106/72 95 09/04/17 15:51 09/04/17 15:51 09/04/17 15:51 09/04/17 15:51 09/04/17 15:51 Intake and Output: 09/04/17 09/05/17 18:59 06:59 Intake Total 120 Balance 120 - Medications Medications: Current Medications Albuterol/Ipratropium (Duoneb 3 Mg/0.5 Mg (3 Ml) Ud) 3 ml INH RQ6 PRN PRN Reason: Shortness of Breath Aspirin (Ecotrin) 81 mg PO DAILY [facility] Last Admin: 09/04/17 09:17 Dose: 81 mg Donepezil HCl (Aricept) 10 mg PO HS [facility] Last Admin: 09/03/17 21:11 Dose: 10 mg Famotidine (Pepcid) 20 mg PO DAILY [facility] Last Admin: 09/04/17 09:17 Dose: 20 mg Fluticasone Propionate (Flonase) 1 spr IZAIAH BID [facility] Last Admin: 09/04/17 17:24 Dose: 1 spr Folic Acid (Folic Acid) 1 mg PO DAILY [facility] Last Admin: 09/04/17 09:17 Dose: 1 mg Guaifenesin/Codeine Phosphate (Guaifenesin/Codeine) 5 ml PO Q4H PRN PRN Reason: Cough and congestion Losartan Potassium (Cozaar) 25 mg PO DAILY [facility] Last Admin: 09/04/17 09:17 Dose: 25 mg Memantine (Namenda) 10 mg PO DAILY [facility] Last Admin: 09/04/17 09:17 Dose: 10 mg Rosuvastatin Calcium (Crestor) 2.5 mg PO [facility] Last Admin: 09/03/17 21:11 Dose: 2.5 mg - Labs Labs: 09/03/17 06:54 09/03/17 06:54 PT 11.8 SECONDS (9.7-12.2) 06/21/17 22:04 INR 1.1 06/21/17 22:04 APTT 32 SECONDS (21-34) 06/21/17 22:04 Attending/Attestation - Attestation I have personally seen and examined this patient.: Yes I have fully participated in the care of the patient.: Yes I have reviewed all pertinent clinical information, including history, physical exam and plan: Yes Notes (Text): 09/04/17 19:14 Patient was seen and examined at 12:00 PM 09/04/17 358 A Exam, assessment and plan were gone over with the resident Upon FULL ROS NO dysphagia/odynopahgia NO soreness in throat NO cough NO sinus/nasal congestion NO fever/chills NO muscle aches/pains NO joint pain NO chest pain/palpations NO SOB NO abdominal pain NO n/v/d/c NO burning pain with urination NO CHAMPION Exam: General: AAOX3, NAD HEENT: NCA, EOMI, PERRLA, NO cervical/supraclavicular/submandibular lymphadenopathy, NO pharyngeal erythema/exudate, Nasal Turbinates are nonerythematous/nonedematous, Oral Mucosa is moist Cardio: NS1 and NS2, NO M/R/G Resp: CTA B/L, NO R/R/W GI: BSx4, Soft, NT, NO HSM, NO guarding/rebound tenderness Ext: Pulses are strong and equal, Capillary Refill is 2 seconds, NO edema Neuro: CN II through XII are grossly intact Assessment and Plan: 1). Dimentia: Aricept, Namenda, Folic Acid, Crestor, ASA 2). Anemia: resolved 3). Hypokalemia: resolved 4). Abnormal Chest X Ray (Granuloma?): CT Chest was unremarkable 5). Impaired Fasting Glucose: HgBA1C was 5.7 6). HTN: Cozaar 7). Prophylaxis: Pepcid, SCD,Heparin, 1:1 observation for elopement risk 09/04/17: Spoke with Chief Station Engineer Mary Carmen and patient has scheduled court appointment 09/20/17 to determine permanent guardian. Gary Damon D.O.
[2017-09-04] MEDS: Rosuvastatin Calcium 2.5 mg Tab PO SCH (21:07)
[2017-09-05] MEDS: Fluticasone Nasal 50 mcg/Spray NAS SCH ×2 (10:29→17:43)
--- NOTE | 2017-09-05 13:01 | CP.PCM.PN ---
<Saú[place]abash - Last Filed: 09/05/17 17:36> Subjective - Date & Time of Evaluation Date of Evaluation: 09/05/17 Time of Evaluation: 06:00 - Subjective Subjective: Patient was seen and examined at bedside in the AM. Per nursing, there were no acute events overnight. The patient is currently at his neurological baseline. The patient denies any lightheadedness, skin changes, fevers, chills , nausea, vomiting, headaches, syncopal episodes, abdominal pain, chest pain, shortness of breath, constipation ,diarrhea, or any other complain Objective - Vital Signs/Intake and Output Vital Signs (last 24 hours): Temp Pulse Resp BP Pulse Ox 97.7 F 73 20 120/77 95 09/05/17 07:00 09/05/17 07:00 09/05/17 07:00 09/05/17 07:00 09/05/17 07:00 Intake and Output: 09/05/17 09/05/17 06:59 18:59 Intake Total 360 Balance 360 - Medications Medications: Current Medications Albuterol/Ipratropium (Duoneb 3 Mg/0.5 Mg (3 Ml) Ud) 3 ml INH RQ6 PRN PRN Reason: Shortness of Breath Aspirin (Ecotrin) 81 mg PO DAILY [facility] Last Admin: 09/05/17 10:14 Dose: 81 mg Donepezil HCl (Aricept) 10 mg PO HS [facility] Last Admin: 09/04/17 21:07 Dose: 10 mg Famotidine (Pepcid) 20 mg PO DAILY [facility] Last Admin: 09/05/17 10:14 Dose: 20 mg Fluticasone Propionate (Flonase) 1 spr IZAIAH BID [facility] Last Admin: 09/05/17 10:29 Dose: 1 spr Folic Acid (Folic Acid) 1 mg PO DAILY [facility] Last Admin: 09/05/17 10:14 Dose: 1 mg Guaifenesin/Codeine Phosphate (Guaifenesin/Codeine) 5 ml PO Q4H PRN PRN Reason: Cough and congestion Losartan Potassium (Cozaar) 25 mg PO DAILY [facility] Last Admin: 09/05/17 10:11 Dose: 25 mg Memantine (Namenda) 10 mg PO DAILY [facility] Last Admin: 09/05/17 10:14 Dose: 10 mg Rosuvastatin Calcium (Crestor) 2.5 mg PO HS [facility] Last Admin: 09/04/17 21:07 Dose: 2.5 mg - Labs Labs: 09/03/17 06:54 09/03/17 06:54 PT 11.8 SECONDS (9.7-12.2) 06/21/17 22:04 INR 1.1 06/21/17 22:04 APTT 32 SECONDS (21-34) 06/21/17 22:04 - Head Exam Head Exam: ATRAUMATIC, NORMAL INSPECTION, NORMOCEPHALIC - Eye Exam Eye Exam: EOMI, Normal appearance, PERRL. absent: Periorbital tenderness Pupil Exam: NORMAL ACCOMODATION, PERRL - ENT Exam ENT Exam: Mucous Membranes Moist, Normal Oropharynx - Neck Exam Neck Exam: Normal Inspection. absent: Lymphadenopathy, Thyromegaly - Respiratory Exam Respiratory Exam: Clear to Ausculation Bilateral, NORMAL BREATHING PATTERN. absent: Chest Wall Tenderness, Prolonged Expiratory Phase, Respiratory Distress - Cardiovascular Exam Cardiovascular Exam: REGULAR RHYTHM, RRR, +S1, +S2. absent: Rubs - GI/Abdominal Exam GI & Abdominal Exam: Soft, Normal Bowel Sounds. absent: Rigid, Hyperactive Bowel Sounds - Extremities Exam Extremities Exam: Full ROM, Normal Inspection. absent: Joint Swelling, Pedal Edema - Back Exam Back Exam: NORMAL INSPECTION. absent: CVA tenderness (R), paraspinal tenderness - Neurological Exam Neurological Exam: Alert, Awake, CN II-XII Intact, Normal Gait - Psychiatric Exam Psychiatric exam: Normal Affect, Normal Mood - Skin Skin Exam: Dry, Intact, Normal Color Assessment and Plan - Assessment and Plan (Free Text) Plan: Family History of Alzheimer's Disease Early Onset of Dementia * Family Hx: patient had Alzheimer's Disease at age 71 * Patient was told by a neurologist he has early signs of dementia * Psych consult Dr. Valente --> help appreciated * CT scan of the head is negative * X-ray shows a apical granuloma * Neurology Dr. Manzanares-->help appreciated * Completed EEG 07/07/17 * Discussed patient may complete further workup as outpatient. * negative heavy metal screen * Repeat MRI 07/09: no acute intracranial abnormality. Mild chronic microangiopathic changes and mild age-related global parenchymal volume loss. Please note workup is in prior admission when patient eloped on discharge. * CT scan of the chest is negative and unremarkable * UDS is negative * UA: urine only + for ketones * Brain MRI: Limited motion degraded study. No evidence of acute hemorrhage or infarct. Minor chronic white matter ischemic changes are felt be present. Moderate generalized volume loss. * RPR: nonreactive * HIV: negative * TSH: within normal and repeat within normal * Folate: normal and repeat within normal * B12: normal and repeat within normal * Recommended to patient to follow-up with neurology outpatient and to establish care in the [facility] upon discharge Medications: * Aricept 10mg PO qHS * Namenda 10mg bid * Folic acid 1mg PO daily * Crestor 2.5mg PO HS Anemia-->Resolved * Within normal * Monitor Cough ---> Resolved -Reports for the past two days. -Afebrile and no leukocytosis. Will continue to monitor. Hypokalemia-->resolved * resolved Abnormal Chest xray-->resolved * CT Chest: no acute pathology noted; official report in the computer Impaired glucose tolerance * Hgba1c: 5.7 * Will need check in one year for a1c to prevent diabetes HTN-->Chronic * continue home Cozaar 25mg PO daily * Aspirin 81mg PO daily * 2 gram diet Nasal congestion -Patient reports nasal congestion drying quicker after using flonase. -Continue Flonase -Chest xray: negative Prophylaxis * Pepcid 20mg PO BID * Patient is ambulatory. * SCDs * Appointed Aircraft Painter: Court appointed, Mr. Los Henry, [address] [place] [address] ; Temporary Guardian is Dangelo Thomas. Disposition: Court date set for September 20, 2017. <Gary Damon - Last Filed: 09/05/17 20:00> Objective - Vital Signs/Intake and Output Vital Signs (last 24 hours): Temp Pulse Resp BP Pulse Ox 97.2 F L 76 20 105/73 99 09/05/17 15:00 09/05/17 15:00 09/05/17 15:00 09/05/17 15:00 09/05/17 15:00 Intake and Output: 09/05/17 09/06/17 18:59 06:59 Intake Total 480 Balance 480 - Medications Medications: Current Medications Albuterol/Ipratropium (Duoneb 3 Mg/0.5 Mg (3 Ml) Ud) 3 ml INH RQ6 PRN PRN Reason: Shortness of Breath Aspirin (Ecotrin) 81 mg PO DAILY [facility] Last Admin: 09/05/17 10:14 Dose: 81 mg Donepezil HCl (Aricept) 10 mg PO HS [facility] Last Admin: 09/04/17 21:07 Dose: 10 mg Famotidine (Pepcid) 20 mg PO DAILY [facility] Last Admin: 09/05/17 10:14 Dose: 20 mg Fluticasone Propionate (Flonase) 1 spr IZAIAH BID [facility] Last Admin: 09/05/17 17:43 Dose: 1 spr Folic Acid (Folic Acid) 1 mg PO DAILY [facility] Last Admin: 09/05/17 10:14 Dose: 1 mg Guaifenesin/Codeine Phosphate (Guaifenesin/Codeine) 5 ml PO Q4H PRN PRN Reason: Cough and congestion Losartan Potassium (Cozaar) 25 mg PO DAILY [facility] Last Admin: 09/05/17 10:11 Dose: 25 mg Memantine (Namenda) 10 mg PO DAILY [facility] Last Admin: 09/05/17 10:14 Dose: 10 mg Rosuvastatin Calcium (Crestor) 2.5 mg PO HS [facility] Last Admin: 09/04/17 21:07 Dose: 2.5 mg - Labs Labs: 09/03/17 06:54 09/03/17 06:54 PT 11.8 SECONDS (9.7-12.2) 06/21/17 22:04 INR 1.1 06/21/17 22:04 APTT 32 SECONDS (21-34) 06/21/17 22:04 Attending/Attestation - Attestation I have personally seen and examined this patient.: Yes I have fully participated in the care of the patient.: Yes I have reviewed all pertinent clinical information, including history, physical exam and plan: Yes Notes (Text): 09/05/17 20:00 Patient was seen and examined at 11:15 AM 09/05/17 358 A Exam, assessment and plan were gone over with the resident Upon FULL ROS NO dysphagia/odynopahgia NO soreness in throat NO cough NO sinus/nasal congestion NO fever/chills NO muscle aches/pains NO joint pain NO chest pain/palpations NO SOB NO abdominal pain NO n/v/d/c NO burning pain with urination NO CHAMPION Exam: General: AAOX3, NAD HEENT: NCA, EOMI, PERRLA, NO cervical/supraclavicular/submandibular lymphadenopathy, NO pharyngeal erythema/exudate, Nasal Turbinates are nonerythematous/nonedematous, Oral Mucosa is moist Cardio: NS1 and NS2, NO M/R/G Resp: CTA B/L, NO R/R/W GI: BSx4, Soft, NT, NO HSM, NO guarding/rebound tenderness Ext: Pulses are strong and equal, Capillary Refill is 2 seconds, NO edema Neuro: CN II through XII are grossly intact Assessment and Plan: 1). Dimentia: Aricept, Namenda, Folic Acid, Crestor, ASA 2). Anemia: resolved 3). Hypokalemia: resolved 4). Abnormal Chest X Ray (Granuloma?): CT Chest was unremarkable 5). Impaired Fasting Glucose: HgBA1C was 5.7 6). HTN: Cozaar 7). Prophylaxis: Pepcid, SCD,Heparin, 1:1 observation for elopement risk Patient has scheduled court appointment 09/20/17 to determine permanent guardian. Gary Damon D.O.
[2017-09-05] MEDS: Rosuvastatin Calcium 2.5 mg Tab PO SCH (21:09)
--- NOTE | 2017-09-06 09:10 | CP.PCM.PN ---
<[place] - Last Filed: 09/06/17 17:40> Subjective - Date & Time of Evaluation Date of Evaluation: 09/06/17 Time of Evaluation: 06:10 - Subjective Subjective: Patient was seen and examined at bedside in the AM. Per nursing, there were no acute events overnight. The patient is currently at his neurological baseline. The patient denies any lightheadedness, skin changes, fevers, chills , nausea, vomiting, headaches, syncopal episodes, abdominal pain, chest pain, shortness of breath, constipation ,diarrhea, or any other complaints. Objective - Vital Signs/Intake and Output Vital Signs (last 24 hours): Temp Pulse Resp BP Pulse Ox 97.7 F 81 20 106/65 97 09/06/17 07:15 09/06/17 07:15 09/06/17 07:15 09/06/17 07:15 09/06/17 07:15 Intake and Output: 09/06/17 09/06/17 06:59 18:59 Intake Total 360 Balance 360 - Medications Medications: Current Medications Albuterol/Ipratropium (Duoneb 3 Mg/0.5 Mg (3 Ml) Ud) 3 ml INH RQ6 PRN PRN Reason: Shortness of Breath Aspirin (Ecotrin) 81 mg PO DAILY [facility] Last Admin: 09/05/17 10:14 Dose: 81 mg Donepezil HCl (Aricept) 10 mg PO HS [facility] Last Admin: 09/05/17 21:09 Dose: 10 mg Famotidine (Pepcid) 20 mg PO DAILY [facility] Last Admin: 09/05/17 10:14 Dose: 20 mg Fluticasone Propionate (Flonase) 1 spr IZAIAH BID [facility] Last Admin: 09/05/17 17:43 Dose: 1 spr Folic Acid (Folic Acid) 1 mg PO DAILY [facility] Last Admin: 09/05/17 10:14 Dose: 1 mg Guaifenesin/Codeine Phosphate (Guaifenesin/Codeine) 5 ml PO Q4H PRN PRN Reason: Cough and congestion Losartan Potassium (Cozaar) 25 mg PO DAILY [facility] Last Admin: 09/05/17 10:11 Dose: 25 mg Memantine (Namenda) 10 mg PO DAILY [facility] Last Admin: 09/05/17 10:14 Dose: 10 mg Rosuvastatin Calcium (Crestor) 2.5 mg PO HS [facility] Last Admin: 09/05/17 21:09 Dose: 2.5 mg - Labs Labs: 09/03/17 06:54 09/03/17 06:54 PT 11.8 SECONDS (9.7-12.2) 06/21/17 22:04 INR 1.1 06/21/17 22:04 APTT 32 SECONDS (21-34) 06/21/17 22:04 - Head Exam Head Exam: ATRAUMATIC, NORMAL INSPECTION, NORMOCEPHALIC - Eye Exam Eye Exam: EOMI, Normal appearance, PERRL. absent: Periorbital tenderness Pupil Exam: NORMAL ACCOMODATION, PERRL. absent: Irregular, Unequal - ENT Exam ENT Exam: Mucous Membranes Moist, Normal Oropharynx - Neck Exam Neck Exam: Normal Inspection. absent: Lymphadenopathy, Thyromegaly - Respiratory Exam Respiratory Exam: Clear to Ausculation Bilateral, NORMAL BREATHING PATTERN. absent: Chest Wall Tenderness, Prolonged Expiratory Phase, Respiratory Distress - Cardiovascular Exam Cardiovascular Exam: REGULAR RHYTHM, RRR, +S1, +S2. absent: Rubs - GI/Abdominal Exam GI & Abdominal Exam: Soft, Normal Bowel Sounds. absent: Hyperactive Bowel Sounds - Extremities Exam Extremities Exam: Full ROM, Normal Inspection. absent: Joint Swelling, Tenderness - Back Exam Back Exam: NORMAL INSPECTION. absent: CVA tenderness (L), CVA tenderness (R), paraspinal tenderness - Neurological Exam Neurological Exam: Alert, Awake, CN II-XII Intact, Normal Gait - Psychiatric Exam Psychiatric exam: Normal Affect, Normal Mood - Skin Skin Exam: Dry, Intact, Normal Color Assessment and Plan - Assessment and Plan (Free Text) Plan: Family History of Alzheimer's Disease Early Onset of Dementia * Family Hx: patient had Alzheimer's Disease at age 71 * Patient was told by a neurologist he has early signs of dementia * Psych consult Dr. Valente --> help appreciated * CT scan of the head is negative * X-ray shows a apical granuloma * Neurology Dr. Manzanares-->help appreciated * Completed EEG 07/07/17 * Discussed patient may complete further workup as outpatient. * negative heavy metal screen * Repeat MRI 07/09: no acute intracranial abnormality. Mild chronic microangiopathic changes and mild age-related global parenchymal volume loss. Please note workup is in prior admission when patient eloped on discharge. * CT scan of the chest is negative and unremarkable * UDS is negative * UA: urine only + for ketones * Brain MRI: Limited motion degraded study. No evidence of acute hemorrhage or infarct. Minor chronic white matter ischemic changes are felt be present. Moderate generalized volume loss. * RPR: nonreactive * HIV: negative * TSH: within normal and repeat within normal * Folate: normal and repeat within normal * B12: normal and repeat within normal * Recommended to patient to follow-up with neurology outpatient and to establish care in the [facility] upon discharge Medications: * Aricept 10mg PO qHS * Namenda 10mg bid * Folic acid 1mg PO daily * Crestor 2.5mg PO HS Anemia-->Resolved * Within normal * Monitor Cough ---> Resolved -Reports for the past two days. -Afebrile and no leukocytosis. Will continue to monitor. Hypokalemia-->resolved * resolved Abnormal Chest xray-->resolved * CT Chest: no acute pathology noted; official report in the computer Impaired glucose tolerance * Hgba1c: 5.7 * Will need check in one year for a1c to prevent diabetes HTN-->Chronic * continue home Cozaar 25mg PO daily * Aspirin 81mg PO daily * 2 gram diet Nasal congestion -Patient reports nasal congestion drying quicker after using flonase. -Continue Flonase -Chest xray: negative Prophylaxis * Pepcid 20mg PO BID * Patient is ambulatory. * SCDs * Appointed Hris Administrator: Court appointed, Mr. Los Henry, [address] [place] [address] [place] [address] ; Temporary Guardian is Dangelo Bozenalupe. Disposition: Court date set for September 20, 2017. <Gary Damon - Last Filed: 09/06/17 19:04> Objective - Vital Signs/Intake and Output Vital Signs (last 24 hours): Temp Pulse Resp BP Pulse Ox 98.0 F 71 20 118/75 96 09/06/17 16:00 09/06/17 16:00 09/06/17 16:00 09/06/17 16:00 09/06/17 16:00 Intake and Output: 09/06/17 09/07/17 18:59 06:59 Intake Total 800 Balance 800 - Medications Medications: Current Medications Aspirin (Ecotrin) 81 mg PO DAILY [facility] Last Admin: 09/06/17 09:51 Dose: 81 mg Donepezil HCl (Aricept) 10 mg PO HS [facility] Last Admin: 09/05/17 21:09 Dose: 10 mg Famotidine (Pepcid) 20 mg PO DAILY [facility] Last Admin: 09/06/17 09:51 Dose: 20 mg Folic Acid (Folic Acid) 1 mg PO DAILY [facility] Last Admin: 09/06/17 09:51 Dose: 1 mg Losartan Potassium (Cozaar) 25 mg PO DAILY [facility] Last Admin: 09/06/17 09:51 Dose: 25 mg Memantine (Namenda) 10 mg PO DAILY [facility] Last Admin: 09/06/17 09:51 Dose: 10 mg Rosuvastatin Calcium (Crestor) 2.5 mg PO HS [facility] Last Admin: 09/05/17 21:09 Dose: 2.5 mg - Labs Labs: 09/03/17 06:54 09/03/17 06:54 PT 11.8 SECONDS (9.7-12.2) 06/21/17 22:04 INR 1.1 06/21/17 22:04 APTT 32 SECONDS (21-34) 06/21/17 22:04 Attending/Attestation - Attestation I have personally seen and examined this patient.: Yes I have fully participated in the care of the patient.: Yes I have reviewed all pertinent clinical information, including history, physical exam and plan: Yes Notes (Text): 09/06/17 19:03 Patient was seen and examined at 11:15 AM 09/06/17 358 A Exam, assessment and plan were gone over with the resident Upon FULL ROS NO dysphagia/odynopahgia NO soreness in throat NO cough NO sinus/nasal congestion NO fever/chills NO muscle aches/pains NO joint pain NO chest pain/palpations NO SOB NO abdominal pain NO n/v/d/c NO burning pain with urination NO CHAMPION Exam: General: AAOX3, NAD HEENT: NCA, EOMI, PERRLA, NO cervical/supraclavicular/submandibular lymphadenopathy, NO pharyngeal erythema/exudate, Nasal Turbinates are nonerythematous/nonedematous, Oral Mucosa is moist Cardio: NS1 and NS2, NO M/R/G Resp: CTA B/L, NO R/R/W GI: BSx4, Soft, NT, NO HSM, NO guarding/rebound tenderness Ext: Pulses are strong and equal, Capillary Refill is 2 seconds, NO edema Neuro: CN II through XII are grossly intact Assessment and Plan: 1). Dimentia: Aricept, Namenda, Folic Acid, Crestor, ASA 2). Anemia: resolved 3). Hypokalemia: resolved 4). Abnormal Chest X Ray (Granuloma?): CT Chest was unremarkable 5). Impaired Fasting Glucose: HgBA1C was 5.7 6). HTN: Cozaar 7). Prophylaxis: Pepcid, SCD,Heparin, 1:1 observation for elopement risk Patient has scheduled court appointment 09/20/17 to determine permanent guardian.
[2017-09-06] MEDS: Fluticasone Nasal 50 mcg/Spray NAS SCH (09:52)
[2017-09-06] MEDS: Rosuvastatin Calcium 2.5 mg Tab PO SCH (22:00)
--- NOTE | 2017-09-07 07:32 | CP.PCM.PN ---
<Jennifer Norris DontaeColt - Last Filed: 09/07/17 16:09> Subjective - Date & Time of Evaluation Date of Evaluation: 09/07/17 Time of Evaluation: 07:00 - Subjective Subjective: Medicine Progress Note: Patient was seen and examined at bedside in the AM. Patient states he slept well and he says he usually does sleep well here at the hospital. He says it is very fabien here at the hospital. He denies chest pain, shortness of breath, abdominal pain, fever, nausea, vomiting, diarrhea, constipation or dysuria. Objective - Vital Signs/Intake and Output Vital Signs (last 24 hours): Temp Pulse Resp BP Pulse Ox 97.5 F L 80 18 119/88 99 09/06/17 23:31 09/06/17 23:31 09/06/17 23:31 09/06/17 23:31 09/06/17 23:31 Intake and Output: 09/07/17 09/07/17 06:59 18:59 Intake Total 760 Balance 760 - Medications Medications: Current Medications Aspirin (Ecotrin) 81 mg PO DAILY [facility] Last Admin: 09/06/17 09:51 Dose: 81 mg Donepezil HCl (Aricept) 10 mg PO HS [facility] Last Admin: 09/06/17 22:00 Dose: 10 mg Famotidine (Pepcid) 20 mg PO DAILY [facility] Last Admin: 09/06/17 09:51 Dose: 20 mg Folic Acid (Folic Acid) 1 mg PO DAILY [facility] Last Admin: 09/06/17 09:51 Dose: 1 mg Losartan Potassium (Cozaar) 25 mg PO DAILY [facility] Last Admin: 09/06/17 09:51 Dose: 25 mg Memantine (Namenda) 10 mg PO DAILY [facility] Last Admin: 09/06/17 09:51 Dose: 10 mg Rosuvastatin Calcium (Crestor) 2.5 mg PO HS [facility] Last Admin: 09/06/17 22:00 Dose: 2.5 mg - Labs Labs: 09/03/17 06:54 09/03/17 06:54 PT 11.8 SECONDS (9.7-12.2) 06/21/17 22:04 INR 1.1 06/21/17 22:04 APTT 32 SECONDS (21-34) 06/21/17 22:04 - Constitutional Appears: No Acute Distress - Head Exam Head Exam: ATRAUMATIC, NORMAL INSPECTION - Eye Exam Eye Exam: EOMI, Normal appearance Additional comments: wears glasses - ENT Exam ENT Exam: Mucous Membranes Moist - Respiratory Exam Respiratory Exam: Clear to Ausculation Bilateral, NORMAL BREATHING PATTERN - Cardiovascular Exam Cardiovascular Exam: REGULAR RHYTHM, +S1, +S2 - GI/Abdominal Exam GI & Abdominal Exam: Soft, Normal Bowel Sounds. absent: Tenderness - Extremities Exam Extremities Exam: Normal Inspection - Neurological Exam Neurological Exam: Alert, Awake - Psychiatric Exam Psychiatric exam: Normal Affect, Normal Mood - Skin Skin Exam: Normal Color, Warm Assessment and Plan - Assessment and Plan (Free Text) Assessment: Family History of Alzheimer's Disease Early Onset of Dementia * Family Hx: patient had Alzheimer's Disease at age 71 * Patient was told by a neurologist he has early signs of dementia * Psych consult Dr. Valente --> help appreciated * CT scan of the head is negative * X-ray shows a apical granuloma * Neurology Dr. Manzanares-->help appreciated * Completed EEG 07/07/17 * Discussed patient may complete further workup as outpatient. * negative heavy metal screen * Repeat MRI 07/09: no acute intracranial abnormality. Mild chronic microangiopathic changes and mild age-related global parenchymal volume loss. Please note workup is in prior admission when patient eloped on discharge. * CT scan of the chest is negative and unremarkable * UDS is negative * UA: urine only + for ketones * Brain MRI: Limited motion degraded study. No evidence of acute hemorrhage or infarct. Minor chronic white matter ischemic changes are felt be present. Moderate generalized volume loss. * RPR: nonreactive * HIV: negative * TSH: within normal and repeat within normal * Folate: normal and repeat within normal * B12: normal and repeat within normal * Recommended to patient to follow-up with neurology outpatient and to establish care in the [facility] upon discharge Medications: * Aricept 10mg PO qHS * Namenda 10mg bid * Folic acid 1mg PO daily * Crestor 2.5mg PO HS Anemia-->Resolved * Within normal * Monitor Cough ---> Resolved -Reports for the past two days. -Afebrile and no leukocytosis. Will continue to monitor. Hypokalemia-->resolved * resolved Abnormal Chest xray-->resolved * CT Chest: no acute pathology noted; official report in the computer Impaired glucose tolerance * Hgba1c: 5.7 * Will need check in one year for a1c to prevent diabetes HTN-->Chronic * continue home Cozaar 25mg PO daily * Aspirin 81mg PO daily * 2 gram diet Nasal congestion -Patient reports nasal congestion drying quicker after using flonase. -Continue Flonase -Chest xray: negative Prophylaxis * Pepcid 20mg PO BID * Patient is ambulatory. * SCDs * Appointed Green Chainer: Court appointed, Mr. Los Henry, [address] [facility] [address] ; Temporary Guardian is Dangelo Thomas. Disposition: Court date set for September 20, 2017. <Gary Damon - Last Filed: 09/07/17 20:03> Objective - Vital Signs/Intake and Output Vital Signs (last 24 hours): Temp Pulse Resp BP Pulse Ox 98.4 F 74 20 114/76 97 09/07/17 15:22 09/07/17 15:22 09/07/17 15:22 09/07/17 15:22 09/07/17 15:22 Intake and Output: 09/07/17 09/08/17 18:59 06:59 Intake Total 500 Balance 500 - Medications Medications: Current Medications Aspirin (Ecotrin) 81 mg PO DAILY [facility] Last Admin: 09/07/17 09:47 Dose: 81 mg Donepezil HCl (Aricept) 10 mg PO HS [facility] Last Admin: 09/06/17 22:00 Dose: 10 mg Famotidine (Pepcid) 20 mg PO DAILY [facility] Last Admin: 09/07/17 09:47 Dose: 20 mg Folic Acid (Folic Acid) 1 mg PO DAILY [facility] Last Admin: 09/07/17 09:47 Dose: 1 mg Losartan Potassium (Cozaar) 25 mg PO DAILY [facility] Last Admin: 09/07/17 09:47 Dose: 25 mg Memantine (Namenda) 10 mg PO DAILY [facility] Last Admin: 09/07/17 09:47 Dose: 10 mg Rosuvastatin Calcium (Crestor) 2.5 mg PO HS [facility] Last Admin: 09/06/17 22:00 Dose: 2.5 mg - Labs Labs: 09/03/17 06:54 09/03/17 06:54 PT 11.8 SECONDS (9.7-12.2) 06/21/17 22:04 INR 1.1 06/21/17 22:04 APTT 32 SECONDS (21-34) 06/21/17 22:04 Attending/Attestation - Attestation I have personally seen and examined this patient.: Yes I have fully participated in the care of the patient.: Yes I have reviewed all pertinent clinical information, including history, physical exam and plan: Yes Notes (Text): 09/07/17 20:03 Patient was seen and examined at 12:00 PM 09/07/17 358 A Exam, assessment and plan were gone over with the resident Upon FULL ROS NO dysphagia/odynopahgia NO soreness in throat NO cough NO sinus/nasal congestion NO fever/chills NO muscle aches/pains NO joint pain NO chest pain/palpations NO SOB NO abdominal pain NO n/v/d/c NO burning pain with urination NO CHAMPION Exam: General: AAOX3, NAD HEENT: NCA, EOMI, PERRLA, NO cervical/supraclavicular/submandibular lymphadenopathy, NO pharyngeal erythema/exudate, Nasal Turbinates are nonerythematous/nonedematous, Oral Mucosa is moist Cardio: NS1 and NS2, NO M/R/G Resp: CTA B/L, NO R/R/W GI: BSx4, Soft, NT, NO HSM, NO guarding/rebound tenderness Ext: Pulses are strong and equal, Capillary Refill is 2 seconds, NO edema Neuro: CN II through XII are grossly intact Assessment and Plan: 1). Dimentia: Aricept, Namenda, Folic Acid, Crestor, ASA 2). Anemia: resolved 3). Hypokalemia: resolved 4). Abnormal Chest X Ray (Granuloma?): CT Chest was unremarkable 5). Impaired Fasting Glucose: HgBA1C was 5.7 6). HTN: Cozaar 7). Prophylaxis: Pepcid, SCD,Heparin, 1:1 observation for elopement risk Patient has scheduled court appointment 09/20/17 to determine permanent guardian.
[2017-09-07] MEDS: Rosuvastatin Calcium 2.5 mg Tab PO SCH (21:23)
--- NOTE | 2017-09-08 01:32 | CP.PCM.PN ---
<Rao Hays - Last Filed: 09/08/17 01:32> Subjective - Date & Time of Evaluation Date of Evaluation: 09/08/17 Time of Evaluation: 06:32 - Subjective Subjective: Medicine Progress Note: Patient was seen and examined at bedside in the AM. Patient states he slept well overnight. He denies chest pain, shortness of breath, abdominal pain, fever, nausea, vomiting, diarrhea, constipation or dysuria. Objective - Vital Signs/Intake and Output Vital Signs (last 24 hours): Temp Pulse Resp BP Pulse Ox 98.1 F 72 20 118/79 72 L 09/07/17 23:57 09/07/17 23:57 09/07/17 23:57 09/07/17 23:57 09/07/17 23:57 Intake and Output: 09/07/17 09/08/17 18:59 06:59 Intake Total 500 350 Balance 500 350 - Medications Medications: Current Medications Aspirin (Ecotrin) 81 mg PO DAILY [facility] Last Admin: 09/07/17 09:47 Dose: 81 mg Donepezil HCl (Aricept) 10 mg PO [facility] Last Admin: 09/07/17 21:22 Dose: 10 mg Famotidine (Pepcid) 20 mg PO DAILY [facility] Last Admin: 09/07/17 09:47 Dose: 20 mg Folic Acid (Folic Acid) 1 mg PO DAILY [facility] Last Admin: 09/07/17 09:47 Dose: 1 mg Losartan Potassium (Cozaar) 25 mg PO DAILY [facility] Last Admin: 09/07/17 09:47 Dose: 25 mg Memantine (Namenda) 10 mg PO DAILY [facility] Last Admin: 09/07/17 09:47 Dose: 10 mg Rosuvastatin Calcium (Crestor) 2.5 mg PO [facility] Last Admin: 09/07/17 21:23 Dose: 2.5 mg - Labs Labs: 09/03/17 06:54 09/03/17 06:54 PT 11.8 SECONDS (9.7-12.2) 06/21/17 22:04 INR 1.1 06/21/17 22:04 APTT 32 SECONDS (21-34) 06/21/17 22:04 - Head Exam Head Exam: ATRAUMATIC, NORMAL INSPECTION, NORMOCEPHALIC - Eye Exam Eye Exam: EOMI, Normal appearance, PERRL Pupil Exam: NORMAL ACCOMODATION, PERRL. absent: Irregular, Unequal - ENT Exam ENT Exam: Mucous Membranes Moist, Normal Exam, Normal Oropharynx - Respiratory Exam Respiratory Exam: Clear to Ausculation Bilateral, NORMAL BREATHING PATTERN. absent: Chest Wall Tenderness, Prolonged Expiratory Phase, Respiratory Distress - Cardiovascular Exam Cardiovascular Exam: REGULAR RHYTHM, +S1, +S2 - GI/Abdominal Exam GI & Abdominal Exam: Soft, Normal Bowel Sounds. absent: Rigid, Hyperactive Bowel Sounds - Extremities Exam Extremities Exam: Full ROM. absent: Joint Swelling, Pedal Edema, Tenderness - Back Exam Back Exam: NORMAL INSPECTION. absent: CVA tenderness (L), CVA tenderness (R), paraspinal tenderness - Neurological Exam Neurological Exam: Alert, Awake, CN II-XII Intact - Psychiatric Exam Psychiatric exam: Normal Affect, Normal Mood - Skin Skin Exam: Dry, Intact Assessment and Plan - Assessment and Plan (Free Text) Plan: Family History of Alzheimer's Disease Early Onset of Dementia * Family Hx: patient had Alzheimer's Disease at age 71 * Patient was told by a neurologist he has early signs of dementia * Psych consult Dr. Valente --> help appreciated * CT scan of the head is negative * X-ray shows a apical granuloma * Neurology Dr. Manzanares-->help appreciated * Completed EEG 07/07/17 * Discussed patient may complete further workup as outpatient. * negative heavy metal screen * Repeat MRI 07/09: no acute intracranial abnormality. Mild chronic microangiopathic changes and mild age-related global parenchymal volume loss. Please note workup is in prior admission when patient eloped on discharge. * CT scan of the chest is negative and unremarkable * UDS is negative * UA: urine only + for ketones * Brain MRI: Limited motion degraded study. No evidence of acute hemorrhage or infarct. Minor chronic white matter ischemic changes are felt be present. Moderate generalized volume loss. * RPR: nonreactive * HIV: negative * TSH: within normal and repeat within normal * Folate: normal and repeat within normal * B12: normal and repeat within normal * Recommended to patient to follow-up with neurology outpatient and to establish care in the [facility] upon discharge Medications: * Aricept 10mg PO qHS * Namenda 10mg bid * Folic acid 1mg PO daily * Crestor 2.5mg PO HS Anemia-->Resolved * Within normal * Monitor Cough ---> Resolved -Reports for the past two days. -Afebrile and no leukocytosis. Will continue to monitor. Hypokalemia-->resolved * resolved Abnormal Chest xray-->resolved * CT Chest: no acute pathology noted; official report in the computer Impaired glucose tolerance * Hgba1c: 5.7 * Will need check in one year for a1c to prevent diabetes HTN-->Chronic * continue home Cozaar 25mg PO daily * Aspirin 81mg PO daily * 2 gram diet Nasal congestion -Patient reports nasal congestion drying quicker after using flonase. -Continue Flonase -Chest xray: negative Prophylaxis * Pepcid 20mg PO BID * Patient is ambulatory. * SCDs * Appointed Sausage Cutter: Court appointed, Mr. Los Henry, [address] [facility] [address] ; Temporary Guardian is Dangelo Thomas. Disposition: Court date set for September 20, 2017. <Gary Damon - Last Filed: 09/08/17 07:54> Objective - Vital Signs/Intake and Output Vital Signs (last 24 hours): Temp Pulse Resp BP Pulse Ox 98.1 F 72 20 118/79 72 L 09/07/17 23:57 09/07/17 23:57 09/07/17 23:57 09/07/17 23:57 09/07/17 23:57 Intake and Output: 09/08/17 09/08/17 06:59 18:59 Intake Total 350 360 Balance 350 360 - Medications Medications: Current Medications Aspirin (Ecotrin) 81 mg PO DAILY [facility] Last Admin: 09/07/17 09:47 Dose: 81 mg Donepezil HCl (Aricept) 10 mg PO HS [facility] Last Admin: 09/07/17 21:22 Dose: 10 mg Famotidine (Pepcid) 20 mg PO DAILY [facility] Last Admin: 09/07/17 09:47 Dose: 20 mg Folic Acid (Folic Acid) 1 mg PO DAILY [facility] Last Admin: 09/07/17 09:47 Dose: 1 mg Losartan Potassium (Cozaar) 25 mg PO DAILY [facility] Last Admin: 09/07/17 09:47 Dose: 25 mg Memantine (Namenda) 10 mg PO DAILY [facility] Last Admin: 09/07/17 09:47 Dose: 10 mg Rosuvastatin Calcium (Crestor) 2.5 mg PO HS [facility] Last Admin: 09/07/17 21:23 Dose: 2.5 mg - Labs Labs: 09/03/17 06:54 09/03/17 06:54 PT 11.8 SECONDS (9.7-12.2) 06/21/17 22:04 INR 1.1 06/21/17 22:04 APTT 32 SECONDS (21-34) 06/21/17 22:04 Attending/Attestation - Attestation I have personally seen and examined this patient.: Yes I have fully participated in the care of the patient.: Yes I have reviewed all pertinent clinical information, including history, physical exam and plan: Yes Notes (Text): 09/08/17 07:53 Patient was seen and examined at 7:45 AM 09/08/17 358 A Upon FULL ROS NO dysphagia/odynopahgia NO soreness in throat NO cough NO sinus/nasal congestion NO fever/chills NO muscle aches/pains NO joint pain NO chest pain/palpations NO SOB NO abdominal pain NO n/v/d/c NO burning pain with urination NO CHAMPION Exam: General: AAOX3, NAD HEENT: NCA, EOMI, PERRLA, NO cervical/supraclavicular/submandibular lymphadenopathy, NO pharyngeal erythema/exudate, Nasal Turbinates are nonerythematous/nonedematous, Oral Mucosa is moist Cardio: NS1 and NS2, NO M/R/G Resp: CTA B/L, NO R/R/W GI: BSx4, Soft, NT, NO HSM, NO guarding/rebound tenderness Ext: Pulses are strong and equal, Capillary Refill is 2 seconds, NO edema Neuro: CN II through XII are grossly intact Assessment and Plan: 1). Dimentia: Aricept, Namenda, Folic Acid, Crestor, ASA 2). Anemia: resolved 3). Hypokalemia: resolved 4). Abnormal Chest X Ray (Granuloma?): CT Chest was unremarkable 5). Impaired Fasting Glucose: HgBA1C was 5.7 6). HTN: Cozaar 7). Prophylaxis: Pepcid, SCD,Heparin Patient has scheduled court appointment 09/20/17 to determine permanent guardian. Gary Damon D.O.
[2017-09-08] MEDS: Rosuvastatin Calcium 2.5 mg Tab PO SCH (21:49)
--- NOTE | 2017-09-09 00:09 | CP.PCM.PN ---
<Rao Hays - Last Filed: 09/09/17 00:10> Subjective - Date & Time of Evaluation Date of Evaluation: 09/09/17 Time of Evaluation: 06:08 - Subjective Subjective: Medicine Progress Note: Patient was seen and examined at bedside in the AM. Patient states he slept well overnight. He denies chest pain, shortness of breath, abdominal pain, fever, nausea, vomiting, diarrhea, constipation or dysuria. Objective - Vital Signs/Intake and Output Vital Signs (last 24 hours): Temp Pulse Resp BP Pulse Ox 98.3 F 81 16 105/76 99 09/08/17 23:11 09/08/17 23:11 09/08/17 23:11 09/08/17 23:11 09/08/17 23:11 Intake and Output: 09/08/17 09/09/17 18:59 06:59 Intake Total 360 400 Balance 360 400 - Medications Medications: Current Medications Aspirin (Ecotrin) 81 mg PO DAILY [facility] Last Admin: 09/08/17 10:24 Dose: 81 mg Donepezil HCl (Aricept) 10 mg PO [facility] Last Admin: 09/08/17 21:47 Dose: 10 mg Famotidine (Pepcid) 20 mg PO DAILY [facility] Last Admin: 09/08/17 10:24 Dose: 20 mg Folic Acid (Folic Acid) 1 mg PO DAILY [facility] Last Admin: 09/08/17 10:24 Dose: 1 mg Losartan Potassium (Cozaar) 25 mg PO DAILY [facility] Last Admin: 09/08/17 10:24 Dose: 25 mg Memantine (Namenda) 10 mg PO DAILY [facility] Last Admin: 09/08/17 10:24 Dose: 10 mg Rosuvastatin Calcium (Crestor) 2.5 mg PO HS [facility] Last Admin: 09/08/17 21:49 Dose: 2.5 mg - Labs Labs: 09/03/17 06:54 09/03/17 06:54 PT 11.8 SECONDS (9.7-12.2) 06/21/17 22:04 INR 1.1 06/21/17 22:04 APTT 32 SECONDS (21-34) 06/21/17 22:04 - Head Exam Head Exam: ATRAUMATIC, NORMAL INSPECTION, NORMOCEPHALIC - Eye Exam Eye Exam: EOMI, Normal appearance, PERRL. absent: Periorbital swelling, Periorbital tenderness Pupil Exam: NORMAL ACCOMODATION, PERRL. absent: Irregular, Unequal - ENT Exam ENT Exam: Mucous Membranes Moist, Normal Exam, Normal Oropharynx - Neck Exam Neck Exam: Normal Inspection. absent: Lymphadenopathy, Thyromegaly - Respiratory Exam Respiratory Exam: Clear to Ausculation Bilateral, NORMAL BREATHING PATTERN. absent: Prolonged Expiratory Phase, Respiratory Distress - Cardiovascular Exam Cardiovascular Exam: REGULAR RHYTHM, +S1, +S2 - GI/Abdominal Exam GI & Abdominal Exam: Soft, Normal Bowel Sounds. absent: Hyperactive Bowel Sounds - Extremities Exam Extremities Exam: Full ROM. absent: Joint Swelling, Pedal Edema - Back Exam Back Exam: NORMAL INSPECTION. absent: CVA tenderness (L), CVA tenderness (R), paraspinal tenderness - Neurological Exam Neurological Exam: Alert, Awake, Normal Gait - Psychiatric Exam Psychiatric exam: Normal Affect, Normal Mood - Skin Skin Exam: Dry, Intact Assessment and Plan - Assessment and Plan (Free Text) Plan: Family History of Alzheimer's Disease Early Onset of Dementia * Family Hx: patient had Alzheimer's Disease at age 71 * Patient was told by a neurologist he has early signs of dementia * Psych consult Dr. Valente --> help appreciated * CT scan of the head is negative * X-ray shows a apical granuloma * Neurology Dr. Manzanares-->help appreciated * Completed EEG 07/07/17 * Discussed patient may complete further workup as outpatient. * negative heavy metal screen * Repeat MRI 07/09: no acute intracranial abnormality. Mild chronic microangiopathic changes and mild age-related global parenchymal volume loss. Please note workup is in prior admission when patient eloped on discharge. * CT scan of the chest is negative and unremarkable * UDS is negative * UA: urine only + for ketones * Brain MRI: Limited motion degraded study. No evidence of acute hemorrhage or infarct. Minor chronic white matter ischemic changes are felt be present. Moderate generalized volume loss. * RPR: nonreactive * HIV: negative * TSH: within normal and repeat within normal * Folate: normal and repeat within normal * B12: normal and repeat within normal * Recommended to patient to follow-up with neurology outpatient and to establish care in the [facility] upon discharge Medications: * Aricept 10mg PO qHS * Namenda 10mg bid * Folic acid 1mg PO daily * Crestor 2.5mg PO HS Anemia-->Resolved * Within normal * Monitor Cough ---> Resolved -Reports for the past two days. -Afebrile and no leukocytosis. Will continue to monitor. Hypokalemia-->resolved * resolved Abnormal Chest xray-->resolved * CT Chest: no acute pathology noted; official report in the computer Impaired glucose tolerance * Hgba1c: 5.7 * Will need check in one year for a1c to prevent diabetes HTN-->Chronic * continue home Cozaar 25mg PO daily * Aspirin 81mg PO daily * 2 gram diet Nasal congestion -Patient reports nasal congestion drying quicker after using flonase. -Continue Flonase -Chest xray: negative Prophylaxis * Pepcid 20mg PO BID * Patient is ambulatory. * SCDs * Appointed Security Software Engineer: Court appointed, Mr. Los Henry, [address] [facility] [address] ; Temporary Guardian is Dangelo Thomas. Disposition: Court date set for September 20, 2017. <Gary Damon - Last Filed: 09/09/17 08:35> Objective - Vital Signs/Intake and Output Vital Signs (last 24 hours): Temp Pulse Resp BP Pulse Ox 98.3 F 89 20 115/79 96 09/09/17 08:21 09/09/17 08:21 09/09/17 08:21 09/09/17 08:21 09/09/17 08:21 Intake and Output: 09/09/17 09/09/17 06:59 18:59 Intake Total 580 Balance 580 - Medications Medications: Current Medications Aspirin (Ecotrin) 81 mg PO DAILY [facility] Last Admin: 09/08/17 10:24 Dose: 81 mg Donepezil HCl (Aricept) 10 mg PO HS [facility] Last Admin: 09/08/17 21:47 Dose: 10 mg Famotidine (Pepcid) 20 mg PO DAILY [facility] Last Admin: 09/08/17 10:24 Dose: 20 mg Folic Acid (Folic Acid) 1 mg PO DAILY [facility] Last Admin: 09/08/17 10:24 Dose: 1 mg Losartan Potassium (Cozaar) 25 mg PO DAILY [facility] Last Admin: 09/08/17 10:24 Dose: 25 mg Memantine (Namenda) 10 mg PO DAILY [facility] Last Admin: 09/08/17 10:24 Dose: 10 mg Rosuvastatin Calcium (Crestor) 2.5 mg PO HS [facility] Last Admin: 09/08/17 21:49 Dose: 2.5 mg - Labs Labs: 09/03/17 06:54 09/03/17 06:54 PT 11.8 SECONDS (9.7-12.2) 06/21/17 22:04 INR 1.1 06/21/17 22:04 APTT 32 SECONDS (21-34) 06/21/17 22:04 Attending/Attestation - Attestation I have personally seen and examined this patient.: Yes I have fully participated in the care of the patient.: Yes I have reviewed all pertinent clinical information, including history, physical exam and plan: Yes Notes (Text): 09/09/17 08:35 Patient was seen and examined at 8:30 AM 09/09/17 358 A Upon FULL ROS NO dysphagia/odynopahgia NO soreness in throat NO cough NO sinus/nasal congestion NO fever/chills NO muscle aches/pains NO joint pain NO chest pain/palpations NO SOB NO abdominal pain NO n/v/d/c NO burning pain with urination NO CHAMPION Exam: General: AAOX3, NAD HEENT: NCA, EOMI, PERRLA, NO cervical/supraclavicular/submandibular lymphadenopathy, NO pharyngeal erythema/exudate, Nasal Turbinates are nonerythematous/nonedematous, Oral Mucosa is moist Cardio: NS1 and NS2, NO M/R/G Resp: CTA B/L, NO R/R/W GI: BSx4, Soft, NT, NO HSM, NO guarding/rebound tenderness Ext: Pulses are strong and equal, Capillary Refill is 2 seconds, NO edema Neuro: CN II through XII are grossly intact Assessment and Plan: 1). Dimentia: Aricept, Namenda, Folic Acid, Crestor, ASA 2). Anemia: resolved 3). Hypokalemia: resolved 4). Abnormal Chest X Ray (Granuloma?): CT Chest was unremarkable 5). Impaired Fasting Glucose: HgBA1C was 5.7 6). HTN: Cozaar 7). Prophylaxis: Pepcid, SCD,Heparin Patient has scheduled court appointment 09/20/17 to determine permanent guardian. Gary Damon D.O.
[2017-09-09] MEDS: Rosuvastatin Calcium 2.5 mg Tab PO SCH (21:30)
[2017-09-10 07:11] LABS: ALB/GLOB RATIO 1.3 (1.0-2.1); ALBUMIN 3.5 g/dL (3.5-5.0); ALT/SGPT 30 U/L (21-72); AST/SGOT 17 U/L (17-59); BLOOD UREA NITROGEN 16 mg/dL (9-20); CALCIUM 8.6 mg/dl (8.6-10.4); GFR AFRICAN-AMERICAN > 60; GFR NON-AFRICAN AMERICAN > 60
[2017-09-10 07:30] LABS: BASO # 0.1 K/uL (0.0-0.2); BASO % 0.8 % (0.0-2.0); EOS % 0.4 % (0.0-4.0); HEMOGLOBIN 13.7 g/dL (12.0-18.0); LYMPH # 1.2 K/uL (1.0-4.3); LYMPH % 19.4 % (20.0-40.0); MEAN CELL VOLUME 91.2 fL (80.0-94.0); MEAN CORPUSCULAR HGB CONC 35.1 g/dL (33.0-37.0); MEAN PLATELET VOLUME 7.2 fL (7.2-11.7); MONO # 0.5 K/uL (0.0-0.8); MONO % 8.6 % (0.0-10.0); NEUT # 4.5 K/uL (1.8-7.0); NEUT % 70.8 % (50.0-75.0); NRBC % 0.1 % (0.0-2.0); RBC 4.28 Mil/uL (4.40-5.90); RED CELL DISTRIBUTION WIDTH 12.9 % (11.5-14.5); WHITE BLOOD COUNT 6.3 K/uL (4.8-10.8)
--- NOTE | 2017-09-10 18:32 | CP.PCM.PN ---
<Dillon Pascual E - Last Filed: 09/10/17 18:36> Subjective - Date & Time of Evaluation Date of Evaluation: 09/10/17 Time of Evaluation: 09:30 - Subjective Subjective: Medicine Progress Note ( Dr. Sawyer's service) Patient was seen and examined at bedside. Patient states that he is doing well and has no complaints. Patient remains very pleasant and oriented to time, place and person. Objective - Vital Signs/Intake and Output Vital Signs (last 24 hours): Temp Pulse Resp BP Pulse Ox 98.0 F 70 20 112/80 97 09/10/17 15:35 09/10/17 15:35 09/10/17 15:35 09/10/17 15:35 09/10/17 15:35 Intake and Output: 09/10/17 09/10/17 06:59 18:59 Intake Total 300 600 Balance 300 600 - Medications Medications: Current Medications Aspirin (Ecotrin) 81 mg PO DAILY [facility] Last Admin: 09/10/17 10:11 Dose: 81 mg Donepezil HCl (Aricept) [address] [facility] Last Admin: 09/09/17 21:30 Dose: 10 mg Famotidine (Pepcid) 20 mg PO DAILY [facility] Last Admin: 09/10/17 10:11 Dose: 20 mg Folic Acid (Folic Acid) 1 mg PO DAILY [facility] Last Admin: 09/10/17 10:11 Dose: 1 mg Losartan Potassium (Cozaar) 25 mg PO DAILY [facility] Last Admin: 09/10/17 10:11 Dose: 25 mg Memantine (Namenda) 10 mg PO DAILY [facility] Last Admin: 09/10/17 10:11 Dose: 10 mg Rosuvastatin Calcium (Crestor) 2.[address] [facility] Last Admin: 09/09/17 21:30 Dose: 2.5 mg - Labs Labs: 09/10/17 06:20 09/10/17 06:20 PT 11.8 SECONDS (9.7-12.2) 06/21/17 22:04 INR 1.1 06/21/17 22:04 APTT 32 SECONDS (21-34) 06/21/17 22:04 - Constitutional Appears: Well, No Acute Distress - Head Exam Head Exam: ATRAUMATIC, NORMAL INSPECTION - Eye Exam Eye Exam: EOMI - ENT Exam ENT Exam: Mucous Membranes Moist - Respiratory Exam Respiratory Exam: Clear to Ausculation Bilateral, NORMAL BREATHING PATTERN - Cardiovascular Exam Cardiovascular Exam: REGULAR RHYTHM, +S1, +S2 - GI/Abdominal Exam GI & Abdominal Exam: Soft, Normal Bowel Sounds. absent: Distended, Firm, Guarding, Tenderness - Extremities Exam Extremities Exam: Normal Inspection. absent: Calf Tenderness, Pedal Edema - Neurological Exam Neurological Exam: Alert, Awake - Psychiatric Exam Psychiatric exam: Normal Affect - Skin Skin Exam: Normal Color Assessment and Plan (1) Dementia Assessment & Plan: Family Hx: patient had Alzheimer's Disease at age 71 * Patient was told by a neurologist he has early signs of dementia * Psych consult Dr. Valente --> help appreciated * CT scan of the head is negative * X-ray shows a apical granuloma * Neurology Dr. Manzanares-->help appreciated * Completed EEG 07/07/17 * Discussed patient may complete further workup as outpatient. * negative heavy metal screen * Repeat MRI 07/09: no acute intracranial abnormality. Mild chronic microangiopathic changes and mild age-related global parenchymal volume loss. Please note workup is in prior admission when patient eloped on discharge. * CT scan of the chest is negative and unremarkable * UDS is negative * UA: urine only + for ketones * Brain MRI: Limited motion degraded study. No evidence of acute hemorrhage or infarct. Minor chronic white matter ischemic changes are felt be present. Moderate generalized volume loss. * RPR: nonreactive * HIV: negative * TSH: within normal and repeat within normal * Folate: normal and repeat within normal * B12: normal and repeat within normal * Recommended to patient to follow-up with neurology outpatient and to establish care in the [facility] upon discharge Medications: * Aricept 10mg PO qHS * Namenda 10mg bid * Folic acid 1mg PO daily * Crestor 2.5mg PO HS Status: Chronic (2) Hypertension Assessment & Plan: Continue to monitor with vital signs continue home Cozaar 25mg PO daily Status: Chronic (3) Glucose intolerance (impaired glucose tolerance) Assessment & Plan: Hgba1c: 5.7 * Will need check in one year for a1c to prevent diabetes Status: Acute (4) Abnormal chest x-ray Assessment & Plan: F/u CT chest: unremarkable Status: Acute (5) Prophylactic measure Assessment & Plan: GI: Pepcid 20mg PO BID DVT: SCDs, Patient is ambulatory. * Appointed Photography Coordinator: Court appointed, Mr. Los Henry, [address] [facility] [address] ; Temporary Guardian is Dangelo Thomas. Patient is scheduled for court 09/20/17 for permanent guardian All plans and management discussed with Dr. Sawyer Status: Acute <SilverioTamera V - Last Filed: 09/10/17 21:10> Objective - Vital Signs/Intake and Output Vital Signs (last 24 hours): Temp Pulse Resp BP Pulse Ox 98.0 F 70 20 112/80 97 09/10/17 15:35 09/10/17 15:35 09/10/17 15:35 09/10/17 15:35 09/10/17 15:35 Intake and Output: 09/10/17 09/11/17 18:59 06:59 Intake Total 600 Balance 600 - Medications Medications: Current Medications Aspirin (Ecotrin) 81 mg PO DAILY [facility] Last Admin: 09/10/17 10:11 Dose: 81 mg Donepezil HCl (Aricept) [address] [facility] Last Admin: 09/09/17 21:30 Dose: 10 mg Famotidine (Pepcid) 20 mg PO DAILY [facility] Last Admin: 09/10/17 10:11 Dose: 20 mg Folic Acid (Folic Acid) 1 mg PO DAILY [facility] Last Admin: 09/10/17 10:11 Dose: 1 mg Losartan Potassium (Cozaar) 25 mg PO DAILY [facility] Last Admin: 09/10/17 10:11 Dose: 25 mg Memantine (Namenda) 10 mg PO DAILY [facility] Last Admin: 09/10/17 10:11 Dose: 10 mg Rosuvastatin Calcium (Crestor) 2.5 mg PO HS [facility] Last Admin: 09/09/17 21:30 Dose: 2.5 mg - Labs Labs: 09/10/17 06:20 09/10/17 06:20 PT 11.8 SECONDS (9.7-12.2) 06/21/17 22:04 INR 1.1 06/21/17 22:04 APTT 32 SECONDS (21-34) 06/21/17 22:04 Attending/Attestation - Attestation I have personally seen and examined this patient.: Yes I have fully participated in the care of the patient.: Yes I have reviewed all pertinent clinical information, including history, physical exam and plan: Yes Notes (Text): Patient seen, examined, case discussed with chief medical technologist. Patient denies acute complaints. No events overnight. Patient is ambulatory. Patient is pending discharge planning coordinating between case, social, and guardian. Next meeting on 09/20/17. Will see the patient Sunday/Sunday/Sunday. Assessment/Plan: 1.) Family History of Alzheimer's Disease Early Onset of Dementia * Family Hx: patient had Alzheimer's Disease at age 71 * Patient was told by a neurologist he has early signs of dementia * Psych consult Dr. Valente --> help appreciated * CT scan of the head is negative * X-ray shows a apical granuloma * Neurology Dr. Manzanares-->help appreciated * Completed EEG 07/07/17 * Discussed patient may complete further workup as outpatient. * negative heavy metal screen * Repeat MRI 07/09: no acute intracranial abnormality. Mild chronic microangiopathic changes and mild age-related global parenchymal volume loss. Please note workup is in prior admission when patient eloped on discharge. * CT scan of the chest is negative and unremarkable * UDS is negative * UA: urine only + for ketones * Brain MRI: Limited motion degraded study. No evidence of acute hemorrhage or infarct. Minor chronic white matter ischemic changes are felt be present. Moderate generalized volume loss. * RPR: nonreactive * HIV: negative * TSH: within normal and repeat within normal * Folate: normal and repeat within normal * B12: normal and repeat within normal * Recommended to patient to follow-up with neurology outpatient and to establish care in the [facility] upon discharge Medications: * Aricept 10mg PO qHS * Namenda 10mg bid * Folic acid 1mg PO daily * Crestor 2.5mg PO HS 2.) Cough Nasal Congestion * Chest xray (08/30/17): no active disease * Duonebs PRN shortness of breathe * Flonase 1 puff spray inhaled BID * Guafensin/codine 5ml PO Q4H PRN cough 3.) Anemia-->Resolved * Within normal * Monitor 4.) Hypokalemia-->resolved * resolved 5) Abnormal Chest xray-->resolved * CT Chest: no acute pathology noted; official report in the computer 6.) Impaired glucose tolerance * Hgba1c: 5.7 * Will need check in one year for a1c to prevent over diabetes 7.) HTN-->Chronic * continue home Cozaar 25mg PO daily * Aspirin 81mg PO daily * 2 gram diet 8.) Prophylaxis * Pepcid 20mg PO BID * Patient is ambulatory. * SCDs * Appointed Photography Coordinator Mr. Skeltonesph Marly Henry, [address] [place] [address] * Temporary guardian: Mr Dangelo Thomas temporary guardian until 09/20/17 * Discharge planning underway. * Disposition: Pending coordination between guardian, business attorney, case and social work for discharge planning Next meeting 09/20/17..
[2017-09-10] MEDS: Rosuvastatin Calcium 2.5 mg Tab PO SCH (21:47)
[2017-09-11] MEDS: Rosuvastatin Calcium 2.5 mg Tab PO SCH (21:21)
--- NOTE | 2017-09-12 11:54 | CP.PCM.PN ---
<Dillon Pascual E - Last Filed: 09/12/17 13:59> Subjective - Date & Time of Evaluation Date of Evaluation: 09/12/17 Time of Evaluation: 07:30 - Subjective Subjective: Medicine Progress Note ( Dr. Sawyer's Service) Patient was seen and examined at bedside. Patient reports that he is doing well and has no complaints. Patient remains in a pleasant and grateful to be alive. Objective - Vital Signs/Intake and Output Vital Signs (last 24 hours): Temp Pulse Resp BP Pulse Ox 97.9 F 81 20 131/74 96 09/12/17 08:22 09/12/17 08:22 09/12/17 08:22 09/12/17 08:22 09/12/17 08:22 Intake and Output: 09/12/17 09/12/17 06:59 18:59 Intake Total 400 Balance 400 - Medications Medications: Current Medications Aspirin (Ecotrin) 81 mg PO DAILY [facility] Last Admin: 09/12/17 09:55 Dose: 81 mg Donepezil HCl (Aricept) 10 mg PO [facility] Last Admin: 09/11/17 21:20 Dose: 10 mg Famotidine (Pepcid) 20 mg PO DAILY [facility] Last Admin: 09/12/17 09:55 Dose: 20 mg Folic Acid (Folic Acid) 1 mg PO DAILY [facility] Last Admin: 09/12/17 09:55 Dose: 1 mg Losartan Potassium (Cozaar) 25 mg PO DAILY [facility] Last Admin: 09/12/17 09:55 Dose: 25 mg Memantine (Namenda) 10 mg PO DAILY [facility] Last Admin: 09/12/17 09:55 Dose: 10 mg Rosuvastatin Calcium (Crestor) 2.5 mg PO [facility] Last Admin: 09/11/17 21:21 Dose: 2.5 mg - Labs Labs: 09/10/17 06:20 09/10/17 06:20 PT 11.8 SECONDS (9.7-12.2) 06/21/17 22:04 INR 1.1 06/21/17 22:04 APTT 32 SECONDS (21-34) 06/21/17 22:04 - Constitutional Appears: Well, No Acute Distress - Head Exam Head Exam: ATRAUMATIC, NORMAL INSPECTION - Eye Exam Eye Exam: EOMI, Normal appearance - ENT Exam ENT Exam: Mucous Membranes Moist - Respiratory Exam Respiratory Exam: Clear to Ausculation Bilateral, NORMAL BREATHING PATTERN - Cardiovascular Exam Cardiovascular Exam: REGULAR RHYTHM, +S1, +S2 - GI/Abdominal Exam GI & Abdominal Exam: Soft, Normal Bowel Sounds. absent: Firm, Guarding, Rigid, Tenderness - Extremities Exam Extremities Exam: Normal Inspection. absent: Calf Tenderness, Pedal Edema, Tenderness - Back Exam Back Exam: absent: CVA tenderness (L), CVA tenderness (R) - Neurological Exam Neurological Exam: Alert, Awake, Oriented x3 - Psychiatric Exam Psychiatric exam: Normal Affect - Skin Skin Exam: Normal Color Assessment and Plan (1) Dementia Assessment & Plan: Family Hx: patient had Alzheimer's Disease at age 71 * Patient was told by a neurologist he has early signs of dementia * Psych consult Dr. Valente --> help appreciated * CT scan of the head is negative * X-ray shows a apical granuloma * Neurology Dr. Manzanares-->help appreciated * Completed EEG 07/07/17 * Discussed patient may complete further workup as outpatient. * negative heavy metal screen * Repeat MRI 07/09: no acute intracranial abnormality. Mild chronic microangiopathic changes and mild age-related global parenchymal volume loss. Please note workup is in prior admission when patient eloped on discharge. * CT scan of the chest is negative and unremarkable * UDS is negative * UA: urine only + for ketones * Brain MRI: Limited motion degraded study. No evidence of acute hemorrhage or infarct. Minor chronic white matter ischemic changes are felt be present. Moderate generalized volume loss. * RPR: nonreactive * HIV: negative * TSH: within normal and repeat within normal * Folate: normal and repeat within normal * B12: normal and repeat within normal * Recommended to patient to follow-up with neurology outpatient and to establish care in the [facility] upon discharge Medications: * Aricept 10mg PO qHS * Namenda 10mg bid * Folic acid 1mg PO daily * Crestor 2.5mg PO HS Status: Chronic (2) Hypertension Assessment & Plan: Stable with medications Continue to monitor with vital signs continue home Cozaar 25mg PO daily Status: Chronic (3) Glucose intolerance (impaired glucose tolerance) Assessment & Plan: Hgba1c: 5.7 * Will need check in one year for a1c to prevent diabetes Status: Acute (4) Abnormal chest x-ray Assessment & Plan: F/u CT chest: unremarkable Status: Acute (5) Prophylactic measure Assessment & Plan: GI: Pepcid 20mg PO BID DVT: SCDs, Patient is ambulatory. * Appointed Derrick Boat Runner: Court appointed, Mr. Los Henry, [address] [facility] [address] [facility] [address] ; Temporary Guardian is Dangelo Thomas. Patient is scheduled for court 09/20/17 for permanent guardian All plans and management discussed with Dr. Sawyer. Status: Acute <Tamera Sawyer V - Last Filed: 09/12/17 20:09> Objective - Vital Signs/Intake and Output Vital Signs (last 24 hours): Temp Pulse Resp BP Pulse Ox 97.3 F L 80 20 121/85 96 09/12/17 15:50 09/12/17 15:50 09/12/17 15:50 09/12/17 15:50 09/12/17 15:50 Intake and Output: 09/12/17 09/13/17 18:59 06:59 Intake Total 550 Balance 550 - Medications Medications: Current Medications Aspirin (Ecotrin) 81 mg PO DAILY [facility] Last Admin: 09/12/17 09:55 Dose: 81 mg Donepezil HCl (Aricept) 10 mg PO HS [facility] Last Admin: 09/11/17 21:20 Dose: 10 mg Famotidine (Pepcid) 20 mg PO DAILY [facility] Last Admin: 09/12/17 09:55 Dose: 20 mg Folic Acid (Folic Acid) 1 mg PO DAILY [facility] Last Admin: 09/12/17 09:55 Dose: 1 mg Losartan Potassium (Cozaar) 25 mg PO DAILY [facility] Last Admin: 09/12/17 09:55 Dose: 25 mg Memantine (Namenda) 10 mg PO DAILY [facility] Last Admin: 09/12/17 09:55 Dose: 10 mg Rosuvastatin Calcium (Crestor) 2.5 mg PO HS [facility] Last Admin: 09/11/17 21:21 Dose: 2.5 mg - Labs Labs: 09/10/17 06:20 09/10/17 06:20 PT 11.8 SECONDS (9.7-12.2) 06/21/17 22:04 INR 1.1 06/21/17 22:04 APTT 32 SECONDS (21-34) 06/21/17 22:04 Attending/Attestation - Attestation I have personally seen and examined this patient.: Yes I have fully participated in the care of the patient.: Yes I have reviewed all pertinent clinical information, including history, physical exam and plan: Yes Notes (Text): Patient seen, examined, case discussed with medical services assistant. Patient denies acute complaints. No events overnight. Patient is ambulatory. Patient offered coffee today which he obliged. patient is not aware today is [employer]'s Day but still expresses disgust when I asked about who the President is. Patient is pending discharge planning coordinating between case, social, and guardian. Next meeting on 09/20/17. Assessment/Plan: 1.) Family History of Alzheimer's Disease Early Onset of Dementia * Family Hx: patient had Alzheimer's Disease at age 71 * Patient was told by a neurologist he has early signs of dementia * Psych consult Dr. Valente --> help appreciated * CT scan of the head is negative * X-ray shows a apical granuloma * Neurology Dr. Manzanares-->help appreciated * Completed EEG 07/07/17 * Discussed patient may complete further workup as outpatient. * negative heavy metal screen * Repeat MRI 07/09: no acute intracranial abnormality. Mild chronic microangiopathic changes and mild age-related global parenchymal volume loss. Please note workup is in prior admission when patient eloped on discharge. * CT scan of the chest is negative and unremarkable * UDS is negative * UA: urine only + for ketones * Brain MRI: Limited motion degraded study. No evidence of acute hemorrhage or infarct. Minor chronic white matter ischemic changes are felt be present. Moderate generalized volume loss. * RPR: nonreactive * HIV: negative * TSH: within normal and repeat within normal * Folate: normal and repeat within normal * B12: normal and repeat within normal * Recommended to patient to follow-up with neurology outpatient and to establish care in the [facility] upon discharge Medications: * Aricept 10mg PO qHS * Namenda 10mg bid * Folic acid 1mg PO daily * Crestor 2.5mg PO HS 2.) Cough Nasal Congestion * Chest xray (08/30/17): no active disease * Duonebs PRN shortness of breathe * Flonase 1 puff spray inhaled BID * Guafensin/codine 5ml PO Q4H PRN cough 3.) Anemia-->Resolved * Within normal * Monitor 4.) Hypokalemia-->resolved * resolved 5) Abnormal Chest xray-->resolved * CT Chest: no acute pathology noted; official report in the computer 6.) Impaired glucose tolerance * Hgba1c: 5.7 * Will need check in one year for a1c to prevent over diabetes 7.) HTN-->Chronic * continue home Cozaar 25mg PO daily * Aspirin 81mg PO daily * 2 gram diet 8.) Prophylaxis * Pepcid 20mg PO BID * Patient is ambulatory. * SCDs * Appointed Derrick Boat Runner Mr. Los Henry, [address] [facility] [address] [facility] [address] * Temporary guardian: Mr Pierson William temporary guardian until 09/20/17 * Discharge planning underway. * Disposition: Pending coordination between guardian, patent attorney, case and social work for discharge planning Next meeting 09/20/17.
[2017-09-12] MEDS: Rosuvastatin Calcium 2.5 mg Tab PO SCH (21:55)
--- NOTE | 2017-09-13 18:20 | CP.PCM.PN ---
Subjective - Date & Time of Evaluation Date of Evaluation: 09/13/17 Time of Evaluation: 12:00 - Subjective Subjective: Patient was seen and examined at 12:00 PM 09/13/17 358 A Upon FULL ROS NO dysphagia/odynopahgia NO soreness in throat NO cough NO sinus/nasal congestion NO fever/chills NO muscle aches/pains NO joint pain NO chest pain/palpations NO SOB NO abdominal pain NO n/v/d/c NO burning pain with urination NO CHAMPION Exam: General: AAOX3, NAD HEENT: NCA, EOMI, PERRLA, NO cervical/supraclavicular/submandibular lymphadenopathy, NO pharyngeal erythema/exudate, Nasal Turbinates are nonerythematous/nonedematous, Oral Mucosa is moist Cardio: NS1 and NS2, NO M/R/G Resp: CTA B/L, NO R/R/W GI: BSx4, Soft, NT, NO HSM, NO guarding/rebound tenderness Ext: Pulses are strong and equal, Capillary Refill is 2 seconds, NO edema Neuro: CN II through XII are grossly intact Assessment and Plan: 1). Dimentia: Aricept, Namenda, Folic Acid, Crestor, ASA 2). Anemia: resolved 3). Hypokalemia: resolved 4). Abnormal Chest X Ray (Granuloma?): CT Chest was unremarkable 5). Impaired Fasting Glucose: HgBA1C was 5.7 6). HTN: Cozaar 7). Prophylaxis: Pepcid, SCD,Heparin Patient has scheduled court appointment 09/20/17 to determine permanent guardian. Gary Damon D.O. Objective - Vital Signs/Intake and Output Vital Signs (last 24 hours): Temp Pulse Resp BP Pulse Ox 97.5 F L 72 20 118/82 96 09/13/17 15:00 09/13/17 15:00 09/13/17 15:00 09/13/17 15:00 09/13/17 15:00 Intake and Output: 09/13/17 09/13/17 06:59 18:59 Intake Total 300 600 Balance 300 600 - Medications Medications: Current Medications Aspirin (Ecotrin) 81 mg PO DAILY [facility] Last Admin: 09/13/17 10:46 Dose: 81 mg Donepezil HCl (Aricept) 10 mg PO HS [facility] Last Admin: 09/12/17 21:55 Dose: 10 mg Famotidine (Pepcid) 20 mg PO DAILY [facility] Last Admin: 09/13/17 10:46 Dose: 20 mg Folic Acid (Folic Acid) 1 mg PO DAILY [facility] Last Admin: 09/13/17 10:46 Dose: 1 mg Losartan Potassium (Cozaar) 25 mg PO DAILY [facility] Last Admin: 09/13/17 10:46 Dose: 25 mg Memantine (Namenda) 10 mg PO DAILY [facility] Last Admin: 09/13/17 10:46 Dose: 10 mg Rosuvastatin Calcium (Crestor) 2.5 mg PO HS [facility] Last Admin: 09/12/17 21:55 Dose: 2.5 mg - Labs Labs: 09/10/17 06:20 09/10/17 06:20 PT 11.8 SECONDS (9.7-12.2) 06/21/17 22:04 INR 1.1 06/21/17 22:04 APTT 32 SECONDS (21-34) 06/21/17 22:04
[2017-09-13] MEDS: Rosuvastatin Calcium 2.5 mg Tab PO SCH (21:21)
--- NOTE | 2017-09-14 10:28 | CP.PCM.PN ---
Subjective - Date & Time of Evaluation Date of Evaluation: 09/14/17 Time of Evaluation: 10:25 - Subjective Subjective: Medical Attending Note: Patient seen, examined and case discussed with hospital medical assistant. Patient took a shower this morning and shaved. Patient denies acute complaints. Objective - Vital Signs/Intake and Output Vital Signs (last 24 hours): Temp Pulse Resp BP Pulse Ox 98.0 F 77 20 109/73 97 09/14/17 07:37 09/14/17 07:37 09/14/17 07:37 09/14/17 07:37 09/14/17 07:37 Intake and Output: 09/14/17 09/14/17 06:59 18:59 Intake Total 1250 Balance 1250 - Medications Medications: Current Medications Aspirin (Ecotrin) 81 mg PO DAILY [facility] Last Admin: 09/14/17 10:03 Dose: 81 mg Donepezil HCl (Aricept) 10 mg PO [facility] Last Admin: 09/13/17 21:21 Dose: 10 mg Famotidine (Pepcid) 20 mg PO DAILY [facility] Last Admin: 09/14/17 10:02 Dose: 20 mg Folic Acid (Folic Acid) 1 mg PO DAILY [facility] Last Admin: 09/14/17 10:03 Dose: 1 mg Losartan Potassium (Cozaar) 25 mg PO DAILY [facility] Last Admin: 09/14/17 10:02 Dose: 25 mg Memantine (Namenda) 10 mg PO DAILY [facility] Last Admin: 09/14/17 10:03 Dose: 10 mg Rosuvastatin Calcium (Crestor) 2.5 mg PO [facility] Last Admin: 09/13/17 21:21 Dose: 2.5 mg - Labs Labs: 09/10/17 06:20 09/10/17 06:20 PT 11.8 SECONDS (9.7-12.2) 06/21/17 22:04 INR 1.1 06/21/17 22:04 APTT 32 SECONDS (21-34) 06/21/17 22:04 - Constitutional Appears: Well, Non-toxic, No Acute Distress - Head Exam Head Exam: NORMAL INSPECTION - Eye Exam Eye Exam: EOMI Pupil Exam: NORMAL ACCOMODATION - ENT Exam ENT Exam: Mucous Membranes Moist - Respiratory Exam Respiratory Exam: Clear to Ausculation Bilateral, NORMAL BREATHING PATTERN. absent: Rales, Rhonchi, Wheezes - Cardiovascular Exam Cardiovascular Exam: REGULAR RHYTHM, +S1, +S2 - GI/Abdominal Exam GI & Abdominal Exam: Soft, Normal Bowel Sounds. absent: Distended, Firm, Guarding, Rigid, Tenderness, Rebound - Extremities Exam Extremities Exam: absent: Pedal Edema, Tenderness - Back Exam Back Exam: absent: CVA tenderness (L), CVA tenderness (R) - Neurological Exam Neurological Exam: Alert, Awake - Psychiatric Exam Psychiatric exam: Normal Affect, Normal Mood - Skin Skin Exam: Dry, Intact, Normal Color, Warm Assessment and Plan - Assessment and Plan (Free Text) Assessment: Patient seen, examined, case discussed with hospital medical assistant. Patient denies acute complaints. No events overnight. Patient is ambulatory. Patient is pending discharge planning coordinating between case, social, and guardian. Next meeting on 09/20/17. Assessment/Plan: 1.) Family History of Alzheimer's Disease Early Onset of Dementia * Family Hx: patient had Alzheimer's Disease at age 71 * Patient was told by a neurologist he has early signs of dementia * Psych consult Dr. Valente --> help appreciated * CT scan of the head is negative * X-ray shows a apical granuloma * Neurology Dr. Manzanares-->help appreciated * Completed EEG 07/07/17 * Discussed patient may complete further workup as outpatient. * negative heavy metal screen * Repeat MRI 07/09: no acute intracranial abnormality. Mild chronic microangiopathic changes and mild age-related global parenchymal volume loss. Please note workup is in prior admission when patient eloped on discharge. * CT scan of the chest is negative and unremarkable * UDS is negative * UA: urine only + for ketones * Brain MRI: Limited motion degraded study. No evidence of acute hemorrhage or infarct. Minor chronic white matter ischemic changes are felt be present. Moderate generalized volume loss. * RPR: nonreactive * HIV: negative * TSH: within normal and repeat within normal * Folate: normal and repeat within normal * B12: normal and repeat within normal * Recommended to patient to follow-up with neurology outpatient and to establish care in the [facility] upon discharge Medications: * Aricept 10mg PO qHS * Namenda 10mg bid * Folic acid 1mg PO daily * Crestor 2.5mg PO HS 2.) Cough-->Resolved Nasal Congestion-->resolved * Chest xray (08/30/17): no active disease * Duonebs PRN shortness of breathe * Flonase 1 puff spray inhaled BID * Guafensin/codine 5ml PO Q4H PRN cough 3.) Anemia-->Resolved * Within normal * Monitor 4.) Hypokalemia-->resolved * resolved 5) Abnormal Chest xray-->resolved * CT Chest: no acute pathology noted; official report in the computer 6.) Impaired glucose tolerance * Hgba1c: 5.7 * Will need check in one year for a1c to prevent over diabetes 7.) HTN-->Chronic * continue home Cozaar 25mg PO daily * Aspirin 81mg PO daily * 2 gram diet 8.) Prophylaxis * Pepcid 20mg PO BID * Patient is ambulatory. * SCDs * Appointed Training Coordinator Mr. Los Henry, [address] [place] [address] * Temporary guardian: Mr Dnagelo Thomas temporary guardian until 09/20/17 * Discharge planning underway. Disposition: Pending coordination between guardian, entertainment reporter, case and social work for discharge planning Next meeting 09/20/17.
[2017-09-14] MEDS: Rosuvastatin Calcium 2.5 mg Tab PO SCH (22:41)
--- NOTE | 2017-09-15 09:24 | CP.PCM.PN ---
Subjective - Date & Time of Evaluation Date of Evaluation: 09/15/17 Time of Evaluation: 09:20 - Subjective Subjective: Medical Attending Note: Patient seen and examined at bedside. Patient denies acute complaints. Denies other ROS. Patient is awake, alert, oriented (August, 2017). Objective - Vital Signs/Intake and Output Vital Signs (last 24 hours): Temp Pulse Resp BP Pulse Ox 97.4 F L 81 20 108/66 97 09/15/17 07:42 09/15/17 07:42 09/15/17 07:42 09/15/17 07:42 09/15/17 07:42 Intake and Output: 09/15/17 09/15/17 06:59 18:59 Intake Total 900 Balance 900 - Medications Medications: Current Medications Aspirin (Ecotrin) 81 mg PO DAILY [facility] Last Admin: 09/14/17 10:03 Dose: 81 mg Donepezil HCl (Aricept) 10 mg PO [facility] Last Admin: 09/14/17 22:41 Dose: 10 mg Famotidine (Pepcid) 20 mg PO DAILY [facility] Last Admin: 09/14/17 10:02 Dose: 20 mg Folic Acid (Folic Acid) 1 mg PO DAILY [facility] Last Admin: 09/14/17 10:03 Dose: 1 mg Losartan Potassium (Cozaar) 25 mg PO DAILY [facility] Last Admin: 09/14/17 10:02 Dose: 25 mg Memantine (Namenda) 10 mg PO DAILY [facility] Last Admin: 09/14/17 10:03 Dose: 10 mg Rosuvastatin Calcium (Crestor) 2.5 mg PO [facility] Last Admin: 09/14/17 22:41 Dose: 2.5 mg - Labs Labs: 09/10/17 06:20 09/10/17 06:20 PT 11.8 SECONDS (9.7-12.2) 06/21/17 22:04 INR 1.1 06/21/17 22:04 APTT 32 SECONDS (21-34) 06/21/17 22:04 - Constitutional Appears: Non-toxic, No Acute Distress - Head Exam Head Exam: NORMAL INSPECTION - Eye Exam Eye Exam: EOMI - ENT Exam ENT Exam: Mucous Membranes Moist - Respiratory Exam Respiratory Exam: Clear to Ausculation Bilateral, NORMAL BREATHING PATTERN. absent: Rhonchi, Wheezes, Respiratory Distress - Cardiovascular Exam Cardiovascular Exam: REGULAR RHYTHM, +S1, +S2 - GI/Abdominal Exam GI & Abdominal Exam: Soft, Normal Bowel Sounds. absent: Distended, Firm, Guarding, Rigid, Tenderness, Rebound - Extremities Exam Extremities Exam: absent: Pedal Edema, Tenderness - Neurological Exam Neurological Exam: Alert, Awake, CN II-XII Intact, Normal Gait Neuro motor strength exam: Left Upper Extremity: 5, Right Upper Extremity: 5, Left Lower Extremity: 5, Right Lower Extremity: 5 - Psychiatric Exam Psychiatric exam: Normal Affect, Normal Mood - Skin Skin Exam: Dry, Normal Color, Warm Assessment and Plan - Assessment and Plan (Free Text) Assessment: Patient seen, examined, case discussed with biomedical engineering supervisor. Patient denies acute complaints. No events overnight. Patient is ambulatory. Patient is pending discharge planning coordinating between case, social, and guardian. Next meeting on 09/20/17. Assessment/Plan: 1.) Family History of Alzheimer's Disease Early Onset of Dementia * Family Hx: patient had Alzheimer's Disease at age 71 * Patient was told by a neurologist he has early signs of dementia * Psych consult Dr. Valente --> help appreciated * CT scan of the head is negative * X-ray shows a apical granuloma * Neurology Dr. Manzanares-->help appreciated * Completed EEG 07/07/17 * Discussed patient may complete further workup as outpatient. * negative heavy metal screen * Repeat MRI 07/09: no acute intracranial abnormality. Mild chronic microangiopathic changes and mild age-related global parenchymal volume loss. Please note workup is in prior admission when patient eloped on discharge. * CT scan of the chest is negative and unremarkable * UDS is negative * UA: urine only + for ketones * Brain MRI: Limited motion degraded study. No evidence of acute hemorrhage or infarct. Minor chronic white matter ischemic changes are felt be present. Moderate generalized volume loss. * RPR: nonreactive * HIV: negative * TSH: within normal and repeat within normal * Folate: normal and repeat within normal * B12: normal and repeat within normal * Recommended to patient to follow-up with neurology outpatient and to establish care in the [facility] upon discharge Medications: * Aricept 10mg PO qHS * Namenda 10mg bid * Folic acid 1mg PO daily * Crestor 2.5mg PO HS 2.) Cough-->Resolved Nasal Congestion-->resolved * Chest xray (08/30/17): no active disease * Duonebs PRN shortness of breathe * Flonase 1 puff spray inhaled BID * Guafensin/codine 5ml PO Q4H PRN cough 3.) Anemia-->Resolved * Within normal * Monitor 4.) Hypokalemia-->resolved * resolved 5) Abnormal Chest xray-->resolved * CT Chest: no acute pathology noted; official report in the computer 6.) Impaired glucose tolerance * Hgba1c: 5.7 * Will need check in one year for a1c to prevent over diabetes 7.) HTN-->Chronic * continue home Cozaar 25mg PO daily * Aspirin 81mg PO daily * 2 gram diet 8.) Prophylaxis * Pepcid 20mg PO BID * Patient is ambulatory. * SCDs * Appointed Irrigationist Designer Mr. Los Henry, [address] [place] [address] * Temporary guardian: Mr Dangelo Vossjas temporary guardian until 09/20/17 * Discharge planning underway. Disposition: Pending coordination between guardian, patent prosecution attorney, case and social work for discharge planning Next meeting 09/20/17.
[2017-09-15] MEDS: Rosuvastatin Calcium 2.5 mg Tab PO SCH (21:15)
[2017-09-16] MEDS ORDERED: Enoxaparin 40 mg Syringe SC SCH (10:00)
--- NOTE | 2017-09-16 10:55 | CP.PCM.PN ---
Subjective - Date & Time of Evaluation Date of Evaluation: 09/16/17 Time of Evaluation: 09:25 - Subjective Subjective: Medical Attending Note: Patient seen and examined at bedside. Patient denies acute complaints. No events overnight. Medications renewed. Objective - Vital Signs/Intake and Output Vital Signs (last 24 hours): Temp Pulse Resp BP Pulse Ox 97.9 F 89 20 118/86 97 09/16/17 07:55 09/16/17 07:55 09/16/17 07:55 09/16/17 07:55 09/16/17 07:55 Intake and Output: 09/16/17 09/16/17 06:59 18:59 Intake Total 850 Balance 850 - Medications Medications: Current Medications Aspirin (Ecotrin) 81 mg PO DAILY [facility] Last Admin: 09/16/17 09:48 Dose: 81 mg Donepezil HCl (Aricept) [address] [facility] Last Admin: 09/15/17 21:15 Dose: 10 mg Enoxaparin Sodium (Lovenox) 40 mg SC DAILY [facility] Last Admin: 09/16/17 09:51 Dose: Not Given Famotidine (Pepcid) 20 mg PO DAILY [facility] Last Admin: 09/16/17 09:48 Dose: 20 mg Folic Acid (Folic Acid) 1 mg PO DAILY [facility] Last Admin: 09/16/17 09:48 Dose: 1 mg Losartan Potassium (Cozaar) 25 mg PO DAILY [facility] Last Admin: 09/16/17 09:49 Dose: 25 mg Memantine (Namenda) 10 mg PO DAILY [facility] Last Admin: 09/16/17 09:48 Dose: 10 mg Rosuvastatin Calcium (Crestor) 2.[address] [facility] Last Admin: 09/15/17 21:15 Dose: 2.5 mg - Labs Labs: 09/10/17 06:20 09/10/17 06:20 PT 11.8 SECONDS (9.7-12.2) 06/21/17 22:04 INR 1.1 06/21/17 22:04 APTT 32 SECONDS (21-34) 06/21/17 22:04 - Constitutional Appears: Non-toxic, No Acute Distress - Head Exam Head Exam: NORMAL INSPECTION - Eye Exam Eye Exam: EOMI - ENT Exam ENT Exam: Mucous Membranes Moist - Respiratory Exam Respiratory Exam: Clear to Ausculation Bilateral, NORMAL BREATHING PATTERN. absent: Rales, Rhonchi, Wheezes - Cardiovascular Exam Cardiovascular Exam: REGULAR RHYTHM, +S1, +S2 - GI/Abdominal Exam GI & Abdominal Exam: Soft, Normal Bowel Sounds. absent: Distended, Firm, Guarding, Rigid, Tenderness, Rebound - Extremities Exam Extremities Exam: Normal Capillary Refill. absent: Joint Swelling, Pedal Edema , Tenderness - Neurological Exam Neurological Exam: Alert, Awake, Oriented x3 - Psychiatric Exam Psychiatric exam: Normal Affect, Normal Mood - Skin Skin Exam: Dry, Normal Color, Warm Assessment and Plan - Assessment and Plan (Free Text) Assessment: Patient seen, examined, case discussed with medical chemist. Patient denies acute complaints. No events overnight. Patient is ambulatory. Patient is pending discharge planning coordinating between case, social, and guardian. Next meeting on 09/20/17. Assessment/Plan: 1.) Family History of Alzheimer's Disease Early Onset of Dementia * Family Hx: patient had Alzheimer's Disease at age 71 * Patient was told by a neurologist he has early signs of dementia * Psych consult Dr. Valente --> help appreciated * CT scan of the head is negative * X-ray shows a apical granuloma * Neurology Dr. Manzanares-->help appreciated * Completed EEG 07/07/17 * Discussed patient may complete further workup as outpatient. * negative heavy metal screen * Repeat MRI 07/09: no acute intracranial abnormality. Mild chronic microangiopathic changes and mild age-related global parenchymal volume loss. Please note workup is in prior admission when patient eloped on discharge. * CT scan of the chest is negative and unremarkable * UDS is negative * UA: urine only + for ketones * Brain MRI: Limited motion degraded study. No evidence of acute hemorrhage or infarct. Minor chronic white matter ischemic changes are felt be present. Moderate generalized volume loss. * RPR: nonreactive * HIV: negative * TSH: within normal and repeat within normal * Folate: normal and repeat within normal * B12: normal and repeat within normal * Recommended to patient to follow-up with neurology outpatient and to establish care in the [facility] upon discharge Medications: * Aricept 10mg PO qHS * Namenda 10mg bid * Folic acid 1mg PO daily * Crestor 2.5mg PO HS 2.) Cough-->Resolved Nasal Congestion-->resolved * Chest xray (08/30/17): no active disease * Duonebs PRN shortness of breathe * Flonase 1 puff spray inhaled BID * Guafensin/codine 5ml PO Q4H PRN cough 3.) Anemia-->Resolved * Within normal * Monitor 4.) Hypokalemia-->resolved * resolved 5) Abnormal Chest xray-->resolved * CT Chest: no acute pathology noted; official report in the computer 6.) Impaired glucose tolerance * Hgba1c: 5.7 * Will need check in one year for a1c to prevent over diabetes 7.) HTN-->Chronic * continue home Cozaar 25mg PO daily * Aspirin 81mg PO daily * 2 gram diet 8.) Prophylaxis * Pepcid 20mg PO BID * Patient is ambulatory. * SCDs * Appointed Train Clerk Mr. Los Henry, [address] [place] [address] * Temporary guardian: Mr Dangelo Thomas temporary guardian until 09/20/17 * Discharge planning underway. Disposition: Pending coordination between guardian, ad terminal makeup operator, case and social work for discharge planning Next meeting 09/20/17.
[2017-09-16] MEDS: Rosuvastatin Calcium 2.5 mg Tab PO SCH (21:14)
[2017-09-17 08:12] LABS: ALB/GLOB RATIO 1.3 (1.0-2.1); ALBUMIN 3.7 g/dL (3.5-5.0); ALT/SGPT 30 U/L (21-72); AST/SGOT 25 U/L (17-59); BLOOD UREA NITROGEN 14 mg/dL (9-20); GFR AFRICAN-AMERICAN > 60; GFR NON-AFRICAN AMERICAN > 60
[2017-09-17 08:16] LABS: BASO % 0.4 % (0.0-2.0); EOS # 0.1 K/uL (0.0-0.7); HEMOGLOBIN 14.1 g/dL (12.0-18.0); LYMPH # 1.4 K/uL (1.0-4.3); LYMPH % 27.3 % (20.0-40.0); MEAN CELL VOLUME 92.3 fL (80.0-94.0); MEAN CORPUSCULAR HEMOGLOBIN 32.1 pg (27.0-31.0); MEAN CORPUSCULAR HGB CONC 34.8 g/dL (33.0-37.0); MEAN PLATELET VOLUME 7.2 fL (7.2-11.7); MONO # 0.5 K/uL (0.0-0.8); MONO % 9.8 % (0.0-10.0); NEUT # 3.2 K/uL (1.8-7.0); NEUT % 61.5 % (50.0-75.0); NRBC % 0.1 % (0.0-2.0); RBC 4.39 Mil/uL (4.40-5.90); RED CELL DISTRIBUTION WIDTH 13.1 % (11.5-14.5); WHITE BLOOD COUNT 5.2 K/uL (4.8-10.8)
--- NOTE | 2017-09-17 09:34 | CP.PCM.PN ---
Subjective - Date & Time of Evaluation Date of Evaluation: 09/17/17 Time of Evaluation: 09:30 - Subjective Subjective: Patient was seen and examined at 9:30 AM 09/17/17 358 A Upon FULL ROS NO dysphagia/odynopahgia NO soreness in throat NO cough NO sinus/nasal congestion NO fever/chills NO muscle aches/pains NO joint pain NO chest pain/palpations NO SOB NO abdominal pain NO n/v/d/c NO burning pain with urination NO CHAMPION Exam: General: AAOX3, NAD HEENT: NCA, EOMI, PERRLA, NO cervical/supraclavicular/submandibular lymphadenopathy, NO pharyngeal erythema/exudate, Nasal Turbinates are nonerythematous/nonedematous, Oral Mucosa is moist Cardio: NS1 and NS2, NO M/R/G Resp: CTA B/L, NO R/R/W GI: BSx4, Soft, NT, NO HSM, NO guarding/rebound tenderness Ext: Pulses are strong and equal, Capillary Refill is 2 seconds, NO edema Neuro: CN II through XII are grossly intact Assessment and Plan: 1). Dimentia: Aricept, Namenda, Folic Acid, Crestor, ASA 2). Anemia: resolved 3). Hypokalemia: resolved 4). Abnormal Chest X Ray (Granuloma?): CT Chest was unremarkable 5). Impaired Fasting Glucose: HgBA1C was 5.7 6). HTN: Cozaar 7). Prophylaxis: Pepcid, SCD,Heparin Patient has scheduled court appointment 09/20/17 to determine permanent guardian. Gary Damon D.O. Objective - Vital Signs/Intake and Output Vital Signs (last 24 hours): Temp Pulse Resp BP Pulse Ox 97.4 F L 77 20 111/76 97 09/17/17 08:00 09/17/17 08:00 09/17/17 08:00 09/17/17 08:00 09/17/17 08:00 Intake and Output: 09/17/17 09/17/17 06:59 18:59 Intake Total 200 Balance 200 - Medications Medications: Current Medications Aspirin (Ecotrin) 81 mg PO DAILY [facility] Last Admin: 09/16/17 09:48 Dose: 81 mg Donepezil HCl (Aricept) 10 mg PO HS [facility] Last Admin: 09/16/17 21:14 Dose: 10 mg Enoxaparin Sodium (Lovenox) 40 mg SC DAILY [facility] Famotidine (Pepcid) 20 mg PO DAILY [facility] Last Admin: 09/16/17 09:48 Dose: 20 mg Folic Acid (Folic Acid) 1 mg PO DAILY [facility] Last Admin: 09/16/17 09:48 Dose: 1 mg Losartan Potassium (Cozaar) 25 mg PO DAILY [facility] Last Admin: 09/16/17 09:49 Dose: 25 mg Memantine (Namenda) 10 mg PO DAILY [facility] Last Admin: 09/16/17 09:48 Dose: 10 mg Rosuvastatin Calcium (Crestor) 2.5 mg PO HS [facility] Last Admin: 09/16/17 21:14 Dose: 2.5 mg - Labs Labs: 09/17/17 07:52 09/17/17 07:52 PT 11.8 SECONDS (9.7-12.2) 06/21/17 22:04 INR 1.1 06/21/17 22:04 APTT 32 SECONDS (21-34) 06/21/17 22:04
[2017-09-17] MEDS ORDERED: Enoxaparin 60 mg Syringe SC SCH (10:00)
--- NOTE | 2017-09-17 10:51 | CP.PCM.PN ---
Subjective - Date & Time of Evaluation Date of Evaluation: 09/17/17 Time of Evaluation: 07:50 - Subjective Subjective: Medicine Progress note ( Dr. Janna Damon's service) Patient was seen and examined at bedside. Patient reports that he is doing well and has no complaints. Patient continues to remain in good spirits and very pleasant. Objective - Vital Signs/Intake and Output Vital Signs (last 24 hours): Temp Pulse Resp BP Pulse Ox 97.4 F L 77 20 111/76 97 09/17/17 08:00 09/17/17 08:00 09/17/17 08:00 09/17/17 08:00 09/17/17 08:00 Intake and Output: 09/17/17 09/17/17 06:59 18:59 Intake Total 200 Balance 200 - Medications Medications: Current Medications Aspirin (Ecotrin) 81 mg PO DAILY [facility] Last Admin: 09/17/17 09:35 Dose: 81 mg Donepezil HCl (Aricept) 10 mg PO [facility] Last Admin: 09/16/17 21:14 Dose: 10 mg Enoxaparin Sodium (Lovenox) 40 mg SC DAILY [facility] Last Admin: 09/17/17 09:36 Dose: 40 mg Famotidine (Pepcid) 20 mg PO DAILY [facility] Last Admin: 09/17/17 09:35 Dose: 20 mg Folic Acid (Folic Acid) 1 mg PO DAILY [facility] Last Admin: 09/17/17 09:36 Dose: 1 mg Losartan Potassium (Cozaar) 25 mg PO DAILY [facility] Last Admin: 09/17/17 09:36 Dose: 25 mg Memantine (Namenda) 10 mg PO DAILY [facility] Last Admin: 09/17/17 09:35 Dose: 10 mg Rosuvastatin Calcium (Crestor) 2.5 mg PO [facility] Last Admin: 09/16/17 21:14 Dose: 2.5 mg - Labs Labs: 09/17/17 07:52 09/17/17 07:52 PT 11.8 SECONDS (9.7-12.2) 06/21/17 22:04 INR 1.1 06/21/17 22:04 APTT 32 SECONDS (21-34) 06/21/17 22:04 - Constitutional Appears: Well, No Acute Distress - Head Exam Head Exam: ATRAUMATIC, NORMAL INSPECTION - Eye Exam Eye Exam: EOMI, Normal appearance - ENT Exam ENT Exam: Mucous Membranes Moist - Respiratory Exam Respiratory Exam: Clear to Ausculation Bilateral, NORMAL BREATHING PATTERN. absent: Decreased Breath Sounds, Prolonged Expiratory Phase, Rales, Rhonchi, Wheezes, Respiratory Distress - Cardiovascular Exam Cardiovascular Exam: REGULAR RHYTHM, +S1, +S2. absent: Murmur - GI/Abdominal Exam GI & Abdominal Exam: Soft, Normal Bowel Sounds. absent: Distended, Firm, Guarding, Rigid, Tenderness, Hyperactive Bowel Sounds, Rebound - Extremities Exam Extremities Exam: Normal Inspection. absent: Calf Tenderness, Pedal Edema - Neurological Exam Neurological Exam: Alert, Awake, Oriented x3 Assessment and Plan (1) Dementia Status: Chronic (2) Hypertension Status: Chronic (3) Glucose intolerance (impaired glucose tolerance) Status: Acute (4) Abnormal chest x-ray Status: Acute (5) Prophylactic measure Status: Acute
[2017-09-17] MEDS: Rosuvastatin Calcium 2.5 mg Tab PO SCH (21:36)
[2017-09-18] MEDS: Enoxaparin 40 mg Syringe SC SCH (06:53)
--- NOTE | 2017-09-18 18:53 | CP.PCM.PN ---
Subjective - Date & Time of Evaluation Date of Evaluation: 09/18/17 Time of Evaluation: 15:30 - Subjective Subjective: Patient was seen and examined at 3:30 PM 09/18/17 358 A Upon FULL ROS NO dysphagia/odynopahgia NO soreness in throat NO cough NO sinus/nasal congestion NO fever/chills NO muscle aches/pains NO joint pain NO chest pain/palpations NO SOB NO abdominal pain NO n/v/d/c NO burning pain with urination NO CHAMPION Exam: General: AAOX3, NAD HEENT: NCA, EOMI, PERRLA, NO cervical/supraclavicular/submandibular lymphadenopathy, NO pharyngeal erythema/exudate, Nasal Turbinates are nonerythematous/nonedematous, Oral Mucosa is moist Cardio: NS1 and NS2, NO M/R/G Resp: CTA B/L, NO R/R/W GI: BSx4, Soft, NT, NO HSM, NO guarding/rebound tenderness Ext: Pulses are strong and equal, Capillary Refill is 2 seconds, NO edema Neuro: CN II through XII are grossly intact Assessment and Plan: 1). Dimentia: Aricept, Namenda, Folic Acid, Crestor, ASA 2). Anemia: resolved 3). Hypokalemia: resolved 4). Abnormal Chest X Ray (Granuloma?): CT Chest was unremarkable 5). Impaired Fasting Glucose: HgBA1C was 5.7 6). HTN: Cozaar 7). Prophylaxis: Pepcid, SCD,Heparin Patient has scheduled court appointment 09/20/17 to determine permanent guardian. Gary Damon D.O. Objective - Vital Signs/Intake and Output Vital Signs (last 24 hours): Temp Pulse Resp BP Pulse Ox 97.6 F 76 20 115/76 97 09/18/17 16:11 09/18/17 16:11 09/18/17 16:11 09/18/17 16:11 09/18/17 16:11 Intake and Output: 09/18/17 09/18/17 06:59 18:59 Intake Total 550 800 Output Total 500 Balance 50 800 - Medications Medications: Current Medications Aspirin (Ecotrin) 81 mg PO DAILY [facility] Last Admin: 09/18/17 09:07 Dose: 81 mg Donepezil HCl (Aricept) 10 mg PO HS [facility] Last Admin: 09/17/17 21:36 Dose: 10 mg Enoxaparin Sodium (Lovenox) 40 mg SC DAILY [facility] Famotidine (Pepcid) 20 mg PO DAILY [facility] Last Admin: 09/18/17 09:07 Dose: 20 mg Folic Acid (Folic Acid) 1 mg PO DAILY [facility] Last Admin: 09/18/17 09:06 Dose: 1 mg Losartan Potassium (Cozaar) 25 mg PO DAILY [facility] Last Admin: 09/18/17 09:06 Dose: 25 mg Memantine (Namenda) 10 mg PO DAILY [facility] Last Admin: 09/18/17 09:07 Dose: 10 mg Rosuvastatin Calcium (Crestor) 2.5 mg PO HS [facility] Last Admin: 09/17/17 21:36 Dose: 2.5 mg - Labs Labs: 09/17/17 07:52 09/17/17 07:52 PT 11.8 SECONDS (9.7-12.2) 06/21/17 22:04 INR 1.1 06/21/17 22:04 APTT 32 SECONDS (21-34) 06/21/17 22:04
[2017-09-18] MEDS: Rosuvastatin Calcium 2.5 mg Tab PO SCH (21:42)
[2017-09-19] MEDS: Enoxaparin 40 mg Syringe SC SCH (09:24)
--- NOTE | 2017-09-19 09:48 | CP.PCM.PN ---
<Dillon Pascual E - Last Filed: 09/19/17 09:52> Subjective - Date & Time of Evaluation Date of Evaluation: 09/19/17 Time of Evaluation: 07:15 - Subjective Subjective: Medicine Progress note ( Dr. Janna Damon's service) Patient was seen and examined at bedside. Patient reports that he is doing well with no complaints. Patient denies any acute issues. Patient reports that he has been sleeping well and tolerating diet. Objective - Vital Signs/Intake and Output Vital Signs (last 24 hours): Temp Pulse Resp BP Pulse Ox 97.8 F 86 20 115/77 99 09/19/17 08:47 09/19/17 08:47 09/19/17 08:47 09/19/17 08:47 09/19/17 08:47 Intake and Output: 09/19/17 09/19/17 06:59 18:59 Intake Total 600 Output Total 600 Balance 0 - Medications Medications: Current Medications Aspirin (Ecotrin) 81 mg PO DAILY [facility] Last Admin: 09/19/17 09:23 Dose: 81 mg Donepezil HCl (Aricept) 10 mg PO [facility] Last Admin: 09/18/17 21:42 Dose: 10 mg Enoxaparin Sodium (Lovenox) 40 mg SC DAILY [facility] Last Admin: 09/19/17 09:24 Dose: 40 mg Famotidine (Pepcid) 20 mg PO DAILY [facility] Last Admin: 09/19/17 09:24 Dose: 20 mg Folic Acid (Folic Acid) 1 mg PO DAILY [facility] Last Admin: 09/19/17 09:23 Dose: 1 mg Losartan Potassium (Cozaar) 25 mg PO DAILY [facility] Last Admin: 09/19/17 09:23 Dose: 25 mg Memantine (Namenda) 10 mg PO DAILY [facility] Last Admin: 09/19/17 09:24 Dose: 10 mg Rosuvastatin Calcium (Crestor) 2.5 mg PO HS [facility] Last Admin: 09/18/17 21:42 Dose: 2.5 mg - Labs Labs: 09/17/17 07:52 09/17/17 07:52 PT 11.8 SECONDS (9.7-12.2) 06/21/17 22:04 INR 1.1 06/21/17 22:04 APTT 32 SECONDS (21-34) 06/21/17 22:04 - Constitutional Appears: Well, No Acute Distress - Head Exam Head Exam: ATRAUMATIC, NORMAL INSPECTION - Eye Exam Eye Exam: EOMI, Normal appearance - ENT Exam ENT Exam: Mucous Membranes Moist - Respiratory Exam Respiratory Exam: Clear to Ausculation Bilateral, NORMAL BREATHING PATTERN - Cardiovascular Exam Cardiovascular Exam: REGULAR RHYTHM, +S1, +S2 - GI/Abdominal Exam GI & Abdominal Exam: Soft, Normal Bowel Sounds. absent: Distended, Firm, Guarding, Rigid, Tenderness - Extremities Exam Extremities Exam: Normal Inspection. absent: Calf Tenderness, Pedal Edema - Neurological Exam Neurological Exam: Alert, Awake, Oriented x3 - Psychiatric Exam Psychiatric exam: Normal Affect, Normal Mood - Skin Skin Exam: Normal Color Assessment and Plan (1) Dementia Assessment & Plan: Family Hx: patient had Alzheimer's Disease at age 71 * Patient was told by a neurologist he has early signs of dementia * Psych consult Dr. Valente --> help appreciated * CT scan of the head is negative * X-ray shows a apical granuloma * Neurology Dr. Manzanares-->help appreciated * Completed EEG 07/07/17 * Discussed patient may complete further workup as outpatient. * negative heavy metal screen * Repeat MRI 07/09: no acute intracranial abnormality. Mild chronic microangiopathic changes and mild age-related global parenchymal volume loss. Please note workup is in prior admission when patient eloped on discharge. * CT scan of the chest is negative and unremarkable * UDS is negative * UA: urine only + for ketones * Brain MRI: Limited motion degraded study. No evidence of acute hemorrhage or infarct. Minor chronic white matter ischemic changes are felt be present. Moderate generalized volume loss. * RPR: nonreactive * HIV: negative * TSH: within normal and repeat within normal * Folate: normal and repeat within normal * B12: normal and repeat within normal * Recommended to patient to follow-up with neurology outpatient and to establish care in the [facility] upon discharge Medications: * Aricept 10mg PO qHS * Namenda 10mg bid * Folic acid 1mg PO daily * Crestor 2.5mg PO HS Status: Chronic (2) Hypertension Assessment & Plan: Stable with medications Continue to monitor with vital signs continue home Cozaar 25mg PO daily Status: Chronic (3) Glucose intolerance (impaired glucose tolerance) Assessment & Plan: Hgba1c: 5.7 * Will need check in one year for a1c to prevent diabetes Status: Acute (4) Abnormal chest x-ray Assessment & Plan: F/u CT chest: unremarkable Status: Acute (5) Prophylactic measure Assessment & Plan: GI: Pepcid 20mg PO BID DVT: SCDs, Patient is ambulatory. * Appointed Supervisor [employer] Finishing: Court appointed, Mr. Los Henry, [address] [facility] [address] ; Temporary Guardian is Dangelo Thomas. Patient is scheduled for court 09/20/17 for permanent guardian. Will f/u up court decision All plans and management discussed with Dr. Janna Damon Status: Acute <Gary Damon - Last Filed: 09/19/17 10:00> Objective - Vital Signs/Intake and Output Vital Signs (last 24 hours): Temp Pulse Resp BP Pulse Ox 97.8 F 86 20 115/77 99 09/19/17 08:47 09/19/17 08:47 09/19/17 08:47 09/19/17 08:47 09/19/17 08:47 Intake and Output: 09/19/17 09/19/17 06:59 18:59 Intake Total 600 Output Total 600 Balance 0 - Medications Medications: Current Medications Aspirin (Ecotrin) 81 mg PO DAILY [facility] Last Admin: 09/19/17 09:23 Dose: 81 mg Donepezil HCl (Aricept) 10 mg PO [facility] Last Admin: 09/18/17 21:42 Dose: 10 mg Enoxaparin Sodium (Lovenox) 40 mg SC DAILY [facility] Last Admin: 09/19/17 09:24 Dose: 40 mg Famotidine (Pepcid) 20 mg PO DAILY [facility] Last Admin: 09/19/17 09:24 Dose: 20 mg Folic Acid (Folic Acid) 1 mg PO DAILY [facility] Last Admin: 09/19/17 09:23 Dose: 1 mg Losartan Potassium (Cozaar) 25 mg PO DAILY [facility] Last Admin: 09/19/17 09:23 Dose: 25 mg Memantine (Namenda) 10 mg PO DAILY [facility] Last Admin: 09/19/17 09:24 Dose: 10 mg Rosuvastatin Calcium (Crestor) 2.5 mg PO [facility] Last Admin: 09/18/17 21:42 Dose: 2.5 mg - Labs Labs: 09/17/17 07:52 09/17/17 07:52 PT 11.8 SECONDS (9.7-12.2) 06/21/17 22:04 INR 1.1 06/21/17 22:04 APTT 32 SECONDS (21-34) 06/21/17 22:04 Attending/Attestation - Attestation I have personally seen and examined this patient.: Yes I have fully participated in the care of the patient.: Yes I have reviewed all pertinent clinical information, including history, physical exam and plan: Yes Notes (Text): 09/19/17 09:58 Patient was seen and examined at 9:45 AM 09/19/17 358 A Upon FULL ROS NO dysphagia/odynopahgia NO soreness in throat NO cough NO sinus/nasal congestion NO fever/chills NO muscle aches/pains NO joint pain NO chest pain/palpations NO SOB NO abdominal pain NO n/v/d/c NO burning pain with urination NO CHAMPION Exam: General: AAOX3, NAD HEENT: NCA, EOMI, PERRLA, NO cervical/supraclavicular/submandibular lymphadenopathy, NO pharyngeal erythema/exudate, Nasal Turbinates are nonerythematous/nonedematous, Oral Mucosa is moist Cardio: NS1 and NS2, NO M/R/G Resp: CTA B/L, NO R/R/W GI: BSx4, Soft, NT, NO HSM, NO guarding/rebound tenderness Ext: Pulses are strong and equal, Capillary Refill is 2 seconds, NO edema Neuro: CN II through XII are grossly intact Assessment and Plan: 1). Dimentia: Aricept, Namenda, Folic Acid, Crestor, ASA 2). Anemia: resolved 3). Hypokalemia: resolved 4). Abnormal Chest X Ray (Granuloma?): CT Chest was unremarkable 5). Impaired Fasting Glucose: HgBA1C was 5.7 6). HTN: Cozaar 7). Prophylaxis: Pepcid, SCD,Heparin Patient has scheduled court appointment 09/20/17 to determine permanent guardian. Gary Damon D.O.
[2017-09-19] MEDS: Rosuvastatin Calcium 2.5 mg Tab PO SCH (21:02)
--- NOTE | 2017-09-20 08:31 | CP.PCM.PN ---
Subjective - Date & Time of Evaluation Date of Evaluation: 09/19/17 Time of Evaluation: 08:30 - Subjective Subjective: Patient was seen and examined at 8:30 AM 09/20/17 358 A Upon FULL ROS NO dysphagia/odynopahgia NO soreness in throat NO cough NO sinus/nasal congestion NO fever/chills NO muscle aches/pains NO joint pain NO chest pain/palpations NO SOB NO abdominal pain NO n/v/d/c NO burning pain with urination NO CHAMPION Exam: General: AAOX3, NAD HEENT: NCA, EOMI, PERRLA, NO cervical/supraclavicular/submandibular lymphadenopathy, NO pharyngeal erythema/exudate, Nasal Turbinates are nonerythematous/nonedematous, Oral Mucosa is moist Cardio: NS1 and NS2, NO M/R/G Resp: CTA B/L, NO R/R/W GI: BSx4, Soft, NT, NO HSM, NO guarding/rebound tenderness Ext: Pulses are strong and equal, Capillary Refill is 2 seconds, NO edema Neuro: CN II through XII are grossly intact Assessment and Plan: 1). Dimentia: Aricept, Namenda, Folic Acid, Crestor, ASA 2). Anemia: resolved 3). Hypokalemia: resolved 4). Abnormal Chest X Ray (Granuloma?): CT Chest was unremarkable 5). Impaired Fasting Glucose: HgBA1C was 5.7 6). HTN: Cozaar 7). Prophylaxis: Pepcid, SCD, Lovenox Patient has scheduled court appointment 09/20/17 to determine permanent guardian. Gary Damon D.O. Objective - Vital Signs/Intake and Output Vital Signs (last 24 hours): Temp Pulse Resp BP Pulse Ox 98.1 F 61 20 118/85 96 09/20/17 00:14 09/20/17 00:14 09/20/17 00:14 09/20/17 00:14 09/20/17 00:14 Intake and Output: 09/20/17 09/20/17 06:59 18:59 Intake Total 900 Output Total 1300 Balance -400 - Medications Medications: Current Medications Aspirin (Ecotrin) 81 mg PO DAILY [facility] Last Admin: 09/19/17 09:23 Dose: 81 mg Donepezil HCl (Aricept) 10 mg PO HS [facility] Last Admin: 09/19/17 21:02 Dose: 10 mg Enoxaparin Sodium (Lovenox) 40 mg SC DAILY [facility] Last Admin: 09/19/17 09:24 Dose: 40 mg Famotidine (Pepcid) 20 mg PO DAILY [facility] Last Admin: 09/19/17 09:24 Dose: 20 mg Folic Acid (Folic Acid) 1 mg PO DAILY [facility] Last Admin: 09/19/17 09:23 Dose: 1 mg Losartan Potassium (Cozaar) 25 mg PO DAILY [facility] Last Admin: 09/19/17 09:23 Dose: 25 mg Memantine (Namenda) 10 mg PO DAILY [facility] Last Admin: 09/19/17 09:24 Dose: 10 mg Rosuvastatin Calcium (Crestor) 2.5 mg PO HS [facility] Last Admin: 09/19/17 21:02 Dose: 2.5 mg - Labs Labs: 09/17/17 07:52 09/17/17 07:52 PT 11.8 SECONDS (9.7-12.2) 06/21/17 22:04 INR 1.1 06/21/17 22:04 APTT 32 SECONDS (21-34) 06/21/17 22:04
[2017-09-20] MEDS: Enoxaparin 40 mg Syringe SC SCH (09:18)
[2017-09-20] MEDS: Rosuvastatin Calcium 2.5 mg Tab PO SCH (21:30)
--- NOTE | 2017-09-21 07:19 | CP.PCM.PN ---
<Charla Medina - Last Filed: 09/21/17 07:16> Subjective - Date & Time of Evaluation Date of Evaluation: 09/21/17 Time of Evaluation: 07:00 - Subjective Subjective: Medicine Note for Hospitalist Service - Dr. Janna Damon Patient was seen and examined at bedside. Patient reports that he is doing well with no complaints. Patient denies any acute issues. Patient reports that he has been sleeping well and tolerating diet. Objective - Vital Signs/Intake and Output Vital Signs (last 24 hours): Temp Pulse Resp BP Pulse Ox 98.1 F 77 20 120/70 95 09/20/17 23:37 09/20/17 23:37 09/20/17 23:37 09/20/17 23:37 09/20/17 23:37 Intake and Output: 09/21/17 09/21/17 06:59 18:59 Intake Total 550 Balance 550 - Medications Medications: Current Medications Aspirin (Ecotrin) 81 mg PO DAILY [facility] Last Admin: 09/20/17 09:18 Dose: 81 mg Donepezil HCl (Aricept) 10 mg PO HS [facility] Last Admin: 09/20/17 21:30 Dose: 10 mg Enoxaparin Sodium (Lovenox) 40 mg SC DAILY [facility] Last Admin: 09/20/17 09:18 Dose: 40 mg Famotidine (Pepcid) 20 mg PO DAILY [facility] Last Admin: 09/20/17 09:18 Dose: 20 mg Folic Acid (Folic Acid) 1 mg PO DAILY [facility] Last Admin: 09/20/17 09:18 Dose: 1 mg Losartan Potassium (Cozaar) 25 mg PO DAILY [facility] Last Admin: 09/20/17 09:17 Dose: 25 mg Memantine (Namenda) 10 mg PO DAILY [facility] Last Admin: 09/20/17 09:18 Dose: 10 mg Rosuvastatin Calcium (Crestor) 2.5 mg PO HS [facility] Last Admin: 09/20/17 21:30 Dose: 2.5 mg - Labs Labs: 09/17/17 07:52 09/17/17 07:52 PT 11.8 SECONDS (9.7-12.2) 06/21/17 22:04 INR 1.1 06/21/17 22:04 APTT 32 SECONDS (21-34) 06/21/17 22:04 - Additional Findings Additional findings: - Constitutional Appears: Well, No Acute Distress - Head Exam Head Exam: ATRAUMATIC, NORMAL INSPECTION - Eye Exam Eye Exam: EOMI, Normal appearance - ENT Exam ENT Exam: Mucous Membranes Moist - Respiratory Exam Respiratory Exam: Clear to Ausculation Bilateral, NORMAL BREATHING PATTERN - Cardiovascular Exam Cardiovascular Exam: REGULAR RHYTHM, +S1, +S2 - GI/Abdominal Exam GI & Abdominal Exam: Soft, Normal Bowel Sounds. absent: Distended, Firm, Guarding, Rigid, Tenderness - Extremities Exam Extremities Exam: Normal Inspection. absent: Calf Tenderness, Pedal Edema - Neurological Exam Neurological Exam: Alert, Awake, Oriented x3 - Psychiatric Exam Psychiatric exam: Normal Affect, Normal Mood - Skin Skin Exam: Normal Color Assessment and Plan - Assessment and Plan (Free Text) Plan: Dementia Assessment & Plan: Family Hx: patient had Alzheimer's Disease at age 71 * Patient was told by a neurologist he has early signs of dementia * Psych consult Dr. Valente --> help appreciated * CT scan of the head is negative * X-ray shows a apical granuloma * Neurology Dr. Manzanares-->help appreciated * Completed EEG 07/07/17 * Discussed patient may complete further workup as outpatient. * negative heavy metal screen * Repeat MRI 07/09: no acute intracranial abnormality. Mild chronic microangiopathic changes and mild age-related global parenchymal volume loss. Please note workup is in prior admission when patient eloped on discharge. * CT scan of the chest is negative and unremarkable * UDS is negative * UA: urine only + for ketones * Brain MRI: Limited motion degraded study. No evidence of acute hemorrhage or infarct. Minor chronic white matter ischemic changes are felt be present. Moderate generalized volume loss. * RPR: nonreactive * HIV: negative * TSH: within normal and repeat within normal * Folate: normal and repeat within normal * B12: normal and repeat within normal * Recommended to patient to follow-up with neurology outpatient and to establish care in the [facility] upon discharge Medications: * Aricept 10mg PO qHS * Namenda 10mg bid * Folic acid 1mg PO daily * Crestor 2.5mg PO HS Hypertension Assessment & Plan: Stable with medications Continue to monitor with vital signs Continue home Cozaar 25mg PO daily Glucose intolerance (impaired glucose tolerance) Assessment & Plan: Hgba1c: 5.7 * Will need check in one year for a1c to prevent diabetes Abnormal chest x-ray Assessment & Plan: CT chest: unremarkable Prophylactic measure Assessment & Plan: GI: Pepcid 20mg PO BID DVT: SCDs, Patient is ambulatory. * Appointed Health Records Technology Teacher: Court appointed, Mr. Los Henry, [address] [facility] [address] ; Temporary Guardian is Dangelo Thomas. Patient is scheduled for court 09/20/17 for permanent guardian. Will f/u up court decision DW Dr. Janna Damon, Charla Medina DO, PGY-1 <Gary Damon - Last Filed: 09/21/17 10:15> Objective - Vital Signs/Intake and Output Vital Signs (last 24 hours): Temp Pulse Resp BP Pulse Ox 97.4 F L 82 20 144/86 97 09/21/17 08:00 09/21/17 08:00 09/21/17 08:00 09/21/17 08:00 09/21/17 08:00 Intake and Output: 09/21/17 09/21/17 06:59 18:59 Intake Total 550 Balance 550 - Medications Medications: Current Medications Aspirin (Ecotrin) 81 mg PO DAILY [facility] Last Admin: 09/20/17 09:18 Dose: 81 mg Donepezil HCl (Aricept) 10 mg PO HS [facility] Last Admin: 09/20/17 21:30 Dose: 10 mg Enoxaparin Sodium (Lovenox) 40 mg SC DAILY [facility] Last Admin: 09/20/17 09:18 Dose: 40 mg Famotidine (Pepcid) 20 mg PO DAILY [facility] Last Admin: 09/20/17 09:18 Dose: 20 mg Folic Acid (Folic Acid) 1 mg PO DAILY [facility] Last Admin: 09/20/17 09:18 Dose: 1 mg Losartan Potassium (Cozaar) 25 mg PO DAILY [facility] Last Admin: 09/20/17 09:17 Dose: 25 mg Memantine (Namenda) 10 mg PO DAILY [facility] Last Admin: 09/20/17 09:18 Dose: 10 mg Rosuvastatin Calcium (Crestor) 2.5 mg PO HS [facility] Last Admin: 09/20/17 21:30 Dose: 2.5 mg - Labs Labs: 09/17/17 07:52 09/17/17 07:52 PT 11.8 SECONDS (9.7-12.2) 06/21/17 22:04 INR 1.1 06/21/17 22:04 APTT 32 SECONDS (21-34) 06/21/17 22:04 Attending/Attestation - Attestation I have personally seen and examined this patient.: Yes I have fully participated in the care of the patient.: Yes I have reviewed all pertinent clinical information, including history, physical exam and plan: Yes Notes (Text): 09/21/17 10:14 Patient was seen and examined at 10:00 AM 09/21/17 358 A Upon FULL ROS NO dysphagia/odynopahgia NO soreness in throat NO cough NO sinus/nasal congestion NO fever/chills NO muscle aches/pains NO joint pain NO chest pain/palpations NO SOB NO abdominal pain NO n/v/d/c NO burning pain with urination NO CHAMPION Exam: General: AAOX3, NAD HEENT: NCA, EOMI, PERRLA, NO cervical/supraclavicular/submandibular lymphadenopathy, NO pharyngeal erythema/exudate, Nasal Turbinates are nonerythematous/nonedematous, Oral Mucosa is moist Cardio: NS1 and NS2, NO M/R/G Resp: CTA B/L, NO R/R/W GI: BSx4, Soft, NT, NO HSM, NO guarding/rebound tenderness Ext: Pulses are strong and equal, Capillary Refill is 2 seconds, NO edema Neuro: CN II through XII are grossly intact Assessment and Plan: 1). Dimentia: Aricept, Namenda, Folic Acid, Crestor, ASA 2). Anemia: resolved 3). Hypokalemia: resolved 4). Abnormal Chest X Ray (Granuloma?): CT Chest was unremarkable 5). Impaired Fasting Glucose: HgBA1C was 5.7 6). HTN: Cozaar 7). Prophylaxis: Pepcid, SCD, Lovenox Patient has scheduled court appointment 09/20/17 to determine permanent guardian. Gary Damon D.O.
[2017-09-21] MEDS: Enoxaparin 40 mg Syringe SC SCH ×2 (11:06→11:10)
[2017-09-21] MEDS: Rosuvastatin Calcium 2.5 mg Tab PO SCH (21:31)
[2017-09-22] MEDS: Enoxaparin 40 mg Syringe SC SCH (09:14)
--- NOTE | 2017-09-22 14:54 | CP.PCM.PN ---
Subjective - Date & Time of Evaluation Date of Evaluation: 09/22/17 Time of Evaluation: 14:45 - Subjective Subjective: Patient was seen and examined at 2:45 PM 09/22/17 358 A Upon FULL ROS NO dysphagia/odynopahgia NO soreness in throat NO cough NO sinus/nasal congestion NO fever/chills NO muscle aches/pains NO joint pain NO chest pain/palpations NO SOB NO abdominal pain NO n/v/d/c NO burning pain with urination NO CHAMPION NO lightheadedness/dizziness NO paresthesias Exam: General: AAOX3, NAD HEENT: NCA, EOMI, PERRLA, NO cervical/supraclavicular/submandibular lymphadenopathy, NO pharyngeal erythema/exudate, Nasal Turbinates are nonerythematous/nonedematous, Oral Mucosa is moist Cardio: NS1 and NS2, NO M/R/G Resp: CTA B/L, NO R/R/W GI: BSx4, Soft, NT, NO HSM, NO guarding/rebound tenderness Ext: Pulses are strong and equal, Capillary Refill is 2 seconds, NO edema Neuro: CN II through XII are grossly intact Assessment and Plan: 1). Dimentia: Aricept, Namenda, Folic Acid, Crestor, ASA 2). Anemia: resolved 3). Hypokalemia: resolved 4). Abnormal Chest X Ray: CT Chest was unremarkable 5). Impaired Fasting Glucose: HgBA1C was 5.7 6). HTN: Cozaar 7). Prophylaxis: Pepcid, SCD, Lovenox Patient has scheduled court appointment 09/20/17 to determine permanent guardian. Gary Damon D.O. Objective - Vital Signs/Intake and Output Vital Signs (last 24 hours): Temp Pulse Resp BP Pulse Ox 97.0 F L 77 20 113/80 97 09/22/17 08:50 09/22/17 08:50 09/22/17 08:50 09/22/17 08:50 09/22/17 08:50 Intake and Output: 09/22/17 09/22/17 06:59 18:59 Intake Total 550 300 Output Total 0 Balance 550 300 - Medications Medications: Current Medications Aspirin (Ecotrin) 81 mg PO DAILY [facility] Last Admin: 09/22/17 09:13 Dose: 81 mg Donepezil HCl (Aricept) 10 mg PO HS [facility] Last Admin: 09/21/17 21:31 Dose: 10 mg Enoxaparin Sodium (Lovenox) 40 mg SC DAILY [facility] Last Admin: 09/22/17 09:14 Dose: Not Given Famotidine (Pepcid) 20 mg PO DAILY [facility] Last Admin: 09/22/17 09:13 Dose: 20 mg Folic Acid (Folic Acid) 1 mg PO DAILY [facility] Last Admin: 09/22/17 09:13 Dose: 1 mg Losartan Potassium (Cozaar) 25 mg PO DAILY [facility] Last Admin: 09/22/17 09:13 Dose: 25 mg Memantine (Namenda) 10 mg PO DAILY [facility] Last Admin: 09/22/17 09:13 Dose: 10 mg Rosuvastatin Calcium (Crestor) 2.5 mg PO HS [facility] Last Admin: 09/21/17 21:31 Dose: 2.5 mg - Labs Labs: 09/17/17 07:52 09/17/17 07:52 PT 11.8 SECONDS (9.7-12.2) 06/21/17 22:04 INR 1.1 06/21/17 22:04 APTT 32 SECONDS (21-34) 06/21/17 22:04
[2017-09-22] MEDS: Rosuvastatin Calcium 2.5 mg Tab PO SCH (21:40)
[2017-09-23] MEDS: Enoxaparin 40 mg Syringe SC SCH (09:37)
--- NOTE | 2017-09-23 16:11 | CP.PCM.PN ---
Subjective - Date & Time of Evaluation Date of Evaluation: 09/23/17 Time of Evaluation: 16:00 - Subjective Subjective: Patient was seen and examined at 4:00 PM 09/23/17 358 A Upon FULL ROS NO dysphagia/odynopahgia NO soreness in throat NO cough NO sinus/nasal congestion NO fever/chills NO muscle aches/pains NO joint pain NO chest pain/palpations NO SOB NO abdominal pain NO n/v/d/c NO burning pain with urination NO CHAMPION NO lightheadedness/dizziness NO paresthesias Exam: General: AAOX3, NAD HEENT: NCA, EOMI, PERRLA, NO cervical/supraclavicular/submandibular lymphadenopathy, NO pharyngeal erythema/exudate, Nasal Turbinates are nonerythematous/nonedematous, Oral Mucosa is moist Cardio: NS1 and NS2, NO M/R/G Resp: CTA B/L, NO R/R/W GI: BSx4, Soft, NT, NO HSM, NO guarding/rebound tenderness Ext: Pulses are strong and equal, Capillary Refill is 2 seconds, NO edema Neuro: CN II through XII are grossly intact Assessment and Plan: 1). Dimentia: Aricept, Namenda, Folic Acid, Crestor, ASA 2). Anemia: resolved 3). Hypokalemia: resolved 4). Abnormal Chest X Ray: CT Chest was unremarkable 5). Impaired Fasting Glucose: HgBA1C was 5.7 6). HTN: Cozaar 7). Prophylaxis: Pepcid, SCD, Lovenox Patient has scheduled court appointment 09/20/17 to determine permanent guardian. Gary Damon D.O. Objective - Vital Signs/Intake and Output Vital Signs (last 24 hours): Temp Pulse Resp BP Pulse Ox 98.7 F 85 20 120/75 98 09/23/17 07:37 09/23/17 07:37 09/23/17 07:37 09/23/17 07:37 09/23/17 07:37 Intake and Output: 09/23/17 09/23/17 06:59 18:59 Intake Total 700 480 Output Total 1 Balance 700 479 - Medications Medications: Current Medications Aspirin (Ecotrin) 81 mg PO DAILY [facility] Last Admin: 09/23/17 09:37 Dose: 81 mg Donepezil HCl (Aricept) 10 mg PO HS [facility] Last Admin: 09/22/17 21:38 Dose: 10 mg Enoxaparin Sodium (Lovenox) 40 mg SC DAILY [facility] Last Admin: 09/23/17 09:37 Dose: Not Given Famotidine (Pepcid) 20 mg PO DAILY [facility] Last Admin: 09/23/17 09:37 Dose: 20 mg Folic Acid (Folic Acid) 1 mg PO DAILY [facility] Last Admin: 09/23/17 09:37 Dose: 1 mg Losartan Potassium (Cozaar) 25 mg PO DAILY [facility] Last Admin: 09/23/17 09:37 Dose: 25 mg Memantine (Namenda) 10 mg PO DAILY [facility] Last Admin: 09/23/17 09:37 Dose: 10 mg Rosuvastatin Calcium (Crestor) 2.5 mg PO HS [facility] Last Admin: 09/22/17 21:40 Dose: 2.5 mg - Labs Labs: 09/17/17 07:52 09/17/17 07:52 PT 11.8 SECONDS (9.7-12.2) 06/21/17 22:04 INR 1.1 06/21/17 22:04 APTT 32 SECONDS (21-34) 06/21/17 22:04
[2017-09-23] MEDS: Rosuvastatin Calcium 2.5 mg Tab PO SCH (21:33)
[2017-09-24 06:45] LABS: BASO % 0.6 % (0.0-2.0); EOS # 0.1 K/uL (0.0-0.7); EOS % 1.7 % (0.0-4.0); HEMOGLOBIN 13.8 g/dL (12.0-18.0); LYMPH # 1.6 K/uL (1.0-4.3); LYMPH % 28.6 % (20.0-40.0); MEAN CELL VOLUME 91.1 fL (80.0-94.0); MEAN CORPUSCULAR HEMOGLOBIN 31.1 pg (27.0-31.0); MEAN CORPUSCULAR HGB CONC 34.2 g/dL (33.0-37.0); MONO # 0.5 K/uL (0.0-0.8); MONO % 9.8 % (0.0-10.0); NEUT # 3.3 K/uL (1.8-7.0); NEUT % 59.3 % (50.0-75.0); RBC 4.43 Mil/uL (4.40-5.90); WHITE BLOOD COUNT 5.6 K/uL (4.8-10.8)
[2017-09-24 06:54] LABS: ALB/GLOB RATIO 1.3 (1.0-2.1); ALBUMIN 3.4 g/dL (3.5-5.0); ALT/SGPT 32 U/L (21-72); AST/SGOT 18 U/L (17-59); BLOOD UREA NITROGEN 7 mg/dL (9-20); CALCIUM 8.6 mg/dl (8.6-10.4); GFR AFRICAN-AMERICAN > 60; GFR NON-AFRICAN AMERICAN > 60
--- NOTE | 2017-09-24 07:17 | CP.PCM.PN ---
<Dillon Pascual E - Last Filed: 09/24/17 13:47> Subjective - Date & Time of Evaluation Date of Evaluation: 09/24/17 Time of Evaluation: 07:25 - Subjective Subjective: Medicine Progress Note ( Dr. Sawyer's Service) Patient was seen and examined at bedside. Patient reports that he is doing well and has no complaints. Patient remains in a very pleasant mood. Objective - Vital Signs/Intake and Output Vital Signs (last 24 hours): Temp Pulse Resp BP Pulse Ox 98 F 80 16 111/76 99 09/23/17 23:15 09/23/17 23:15 09/23/17 23:15 09/23/17 23:15 09/23/17 23:15 Intake and Output: 09/24/17 09/24/17 06:59 18:59 Intake Total 400 Balance 400 - Medications Medications: Current Medications Aspirin (Ecotrin) 81 mg PO DAILY [facility] Last Admin: 09/23/17 09:37 Dose: 81 mg Donepezil HCl (Aricept) 10 mg PO [facility] Last Admin: 09/23/17 21:33 Dose: 10 mg Enoxaparin Sodium (Lovenox) 40 mg SC DAILY [facility] Last Admin: 09/23/17 09:37 Dose: Not Given Famotidine (Pepcid) 20 mg PO DAILY [facility] Last Admin: 09/23/17 09:37 Dose: 20 mg Folic Acid (Folic Acid) 1 mg PO DAILY [facility] Last Admin: 09/23/17 09:37 Dose: 1 mg Losartan Potassium (Cozaar) 25 mg PO DAILY [facility] Last Admin: 09/23/17 09:37 Dose: 25 mg Memantine (Namenda) 10 mg PO DAILY [facility] Last Admin: 09/23/17 09:37 Dose: 10 mg Rosuvastatin Calcium (Crestor) 2.5 mg PO HS [facility] Last Admin: 09/23/17 21:33 Dose: 2.5 mg - Labs Labs: 09/24/17 06:34 09/24/17 06:34 PT 11.8 SECONDS (9.7-12.2) 06/21/17 22:04 INR 1.1 06/21/17 22:04 APTT 32 SECONDS (21-34) 06/21/17 22:04 - Constitutional Appears: No Acute Distress - Head Exam Head Exam: ATRAUMATIC - Eye Exam Eye Exam: EOMI, Normal appearance - ENT Exam ENT Exam: Mucous Membranes Moist - Respiratory Exam Respiratory Exam: Clear to Ausculation Bilateral, NORMAL BREATHING PATTERN. absent: Rhonchi, Wheezes, Respiratory Distress - Cardiovascular Exam Cardiovascular Exam: REGULAR RHYTHM, +S1, +S2. absent: Murmur - GI/Abdominal Exam GI & Abdominal Exam: Soft, Normal Bowel Sounds. absent: Firm, Guarding, Rigid, Tenderness - Extremities Exam Extremities Exam: Normal Inspection. absent: Calf Tenderness - Neurological Exam Neurological Exam: Alert, Awake - Psychiatric Exam Psychiatric exam: Normal Affect - Skin Skin Exam: Normal Color Assessment and Plan (1) Dementia Assessment & Plan: Family Hx: patient had Alzheimer's Disease at age 71 * Patient was told by a neurologist he has early signs of dementia * Psych consult Dr. Valente --> help appreciated * CT scan of the head is negative * X-ray shows a apical granuloma * Neurology Dr. Manzanares-->help appreciated * Completed EEG 07/07/17 * Discussed patient may complete further workup as outpatient. * negative heavy metal screen * Repeat MRI 07/09: no acute intracranial abnormality. Mild chronic microangiopathic changes and mild age-related global parenchymal volume loss. Please note workup is in prior admission when patient eloped on discharge. * CT scan of the chest is negative and unremarkable * UDS is negative * UA: urine only + for ketones * Brain MRI: Limited motion degraded study. No evidence of acute hemorrhage or infarct. Minor chronic white matter ischemic changes are felt be present. Moderate generalized volume loss. * RPR: nonreactive * HIV: negative * TSH: within normal and repeat within normal * Folate: normal and repeat within normal * B12: normal and repeat within normal * Recommended to patient to follow-up with neurology outpatient and to establish care in the [facility] upon discharge Medications: * Aricept 10mg PO qHS * Namenda 10mg bid * Folic acid 1mg PO daily * Crestor 2.5mg PO HS Status: Chronic (2) Hypertension Assessment & Plan: Stable with medications Continue to monitor with vital signs continue home Cozaar 25mg PO daily Status: Chronic (3) Glucose intolerance (impaired glucose tolerance) Assessment & Plan: Hgba1c: 5.7 * Will need check in one year for a1c to prevent diabetes Status: Acute (4) Abnormal chest x-ray Assessment & Plan: F/u CT chest: unremarkable Status: Acute (5) Prophylactic measure Assessment & Plan: GI: Pepcid 20mg PO BID DVT: SCDs, Patient is ambulatory. * Appointed Practicing Dermatologist: Court appointed, Mr. Los Henry, [address] [facility] [address] ; Temporary Guardian is Dangelo Thomas. Patient was scheduled for court 09/20/17 for permanent guardian. Will f/u up court decision with social media editor All plans and management discussed with Dr. Sawyer Status: Acute <Tamera Sawyer V - Last Filed: 09/24/17 17:31> Objective - Vital Signs/Intake and Output Vital Signs (last 24 hours): Temp Pulse Resp BP Pulse Ox 97.3 F L 77 20 112/81 97 09/24/17 16:03 09/24/17 16:03 09/24/17 16:03 09/24/17 16:03 09/24/17 16:03 Intake and Output: 09/24/17 09/24/17 06:59 18:59 Intake Total 650 Balance 650 - Medications Medications: Current Medications Aspirin (Ecotrin) 81 mg PO DAILY [facility] Last Admin: 09/24/17 09:18 Dose: 81 mg Donepezil HCl (Aricept) 10 mg PO HS [facility] Last Admin: 09/23/17 21:33 Dose: 10 mg Enoxaparin Sodium (Lovenox) 40 mg SC DAILY [facility] Last Admin: 09/24/17 09:18 Dose: 40 mg Famotidine (Pepcid) 20 mg PO DAILY [facility] Last Admin: 09/24/17 09:18 Dose: 20 mg Folic Acid (Folic Acid) 1 mg PO DAILY [facility] Last Admin: 09/24/17 09:18 Dose: 1 mg Losartan Potassium (Cozaar) 25 mg PO DAILY [facility] Last Admin: 09/24/17 09:18 Dose: 25 mg Memantine (Namenda) 10 mg PO DAILY [facility] Last Admin: 09/24/17 09:18 Dose: 10 mg Rosuvastatin Calcium (Crestor) 2.5 mg PO HS [facility] Last Admin: 09/23/17 21:33 Dose: 2.5 mg - Labs Labs: 09/24/17 06:34 09/24/17 06:34 PT 11.8 SECONDS (9.7-12.2) 06/21/17 22:04 INR 1.1 06/21/17 22:04 APTT 32 SECONDS (21-34) 06/21/17 22:04 Attending/Attestation - Attestation I have personally seen and examined this patient.: Yes I have fully participated in the care of the patient.: Yes I have reviewed all pertinent clinical information, including history, physical exam and plan: Yes Notes (Text): patient seen, examined, case discussed with medical technologist hematology. Patient denies any acute complaints. Patient recognizes August 2017 and Solitario Marie is the President. Will need to follow-up with social work in regards 09/20/17. Assessment/Plan: 1.) Family History of Alzheimer's Disease Early Onset of Dementia * Family Hx: patient had Alzheimer's Disease at age 71 * Patient was told by a neurologist he has early signs of dementia * Psych consult Dr. Valente --> help appreciated * CT scan of the head is negative * X-ray shows a apical granuloma * Neurology Dr. Manzanares-->help appreciated * Completed EEG 07/07/17 * Discussed patient may complete further workup as outpatient. * negative heavy metal screen * Repeat MRI 07/09: no acute intracranial abnormality. Mild chronic microangiopathic changes and mild age-related global parenchymal volume loss. Please note workup is in prior admission when patient eloped on discharge. * CT scan of the chest is negative and unremarkable * UDS is negative * UA: urine only + for ketones * Brain MRI: Limited motion degraded study. No evidence of acute hemorrhage or infarct. Minor chronic white matter ischemic changes are felt be present. Moderate generalized volume loss. * RPR: nonreactive * HIV: negative * TSH: within normal and repeat within normal * Folate: normal and repeat within normal * B12: normal and repeat within normal * Recommended to patient to follow-up with neurology outpatient and to establish care in the [facility] upon discharge Medications: * Aricept 10mg PO qHS * Namenda 10mg bid * Folic acid 1mg PO daily * Crestor 2.5mg PO HS 2.) Cough-->Resolved Nasal Congestion-->resolved * Chest xray (08/30/17): no active disease * Duonebs PRN shortness of breathe * Flonase 1 puff spray inhaled BID * Guafensin/codine 5ml PO Q4H PRN cough 3.) Anemia-->Resolved * Within normal * Monitor 4.) Hypokalemia-->resolved * resolved 5) Abnormal Chest xray-->resolved * CT Chest: no acute pathology noted; official report in the computer 6.) Impaired glucose tolerance * Hgba1c: 5.7 * Will need check in one year for a1c to prevent over diabetes 7.) HTN-->Chronic * continue home Cozaar 25mg PO daily * Aspirin 81mg PO daily * 2 gram diet 8.) Prophylaxis * Pepcid 20mg PO BID * Patient is ambulatory. * SCDs * Appointed Practicing Dermatologist Mr. Los Henry, [address] [place] [address] * Temporary guardian: Mr Dangelo Thomas temporary guardian until 09/20/17 * Discharge planning underway. Disposition: Pending coordination between guardian, durable medical equipment technician, case and social work for discharge planning..
[2017-09-24] MEDS: Enoxaparin 40 mg Syringe SC SCH (09:18)
[2017-09-24] MEDS: Rosuvastatin Calcium 2.5 mg Tab PO SCH (21:42)
[2017-09-25] MEDS ORDERED: Potassium Chloride 20 mEq ER Tab PO ONE (09:22)
[2017-09-25] MEDS: Enoxaparin 40 mg Syringe SC SCH (10:44)
--- NOTE | 2017-09-25 20:51 | CP.PCM.PCO ---
Physician Communication Note - Physician Communication Note Physician Communication Note: Discussed with Social work Najma in regards to ; will f/u
[2017-09-25] MEDS: Rosuvastatin Calcium 2.5 mg Tab PO SCH (21:02)
--- NOTE | 2017-09-26 17:05 | CP.PCM.PN ---
<Dillon Pascual E - Last Filed: 09/26/17 17:02> Subjective - Date & Time of Evaluation Date of Evaluation: 09/26/17 Time of Evaluation: 07:10 - Subjective Subjective: Medicine Progress Note ( Dr. Sawyer's Service) Patient was seen and examined at bedside. Patient reports that he is doing well and has no complaints. Patient remains in a very pleasant mood. Objective - Vital Signs/Intake and Output Vital Signs (last 24 hours): Temp Pulse Resp BP Pulse Ox 97.9 F 97 H 20 103/72 98 09/26/17 16:00 09/26/17 16:00 09/26/17 16:00 09/26/17 16:00 09/26/17 16:00 Intake and Output: 09/26/17 09/26/17 06:59 18:59 Intake Total 350 Balance 350 - Medications Medications: Current Medications Aspirin (Ecotrin) 81 mg PO DAILY [facility] Last Admin: 09/26/17 09:55 Dose: Not Given Donepezil HCl (Aricept) 10 mg PO [facility] Last Admin: 09/25/17 21:02 Dose: 10 mg Famotidine (Pepcid) 20 mg PO DAILY [facility] Last Admin: 09/26/17 09:56 Dose: Not Given Folic Acid (Folic Acid) 1 mg PO DAILY [facility] Last Admin: 09/26/17 09:56 Dose: Not Given Losartan Potassium (Cozaar) 25 mg PO DAILY [facility] Last Admin: 09/26/17 09:55 Dose: Not Given Memantine (Namenda) 10 mg PO DAILY [facility] Last Admin: 09/26/17 09:56 Dose: Not Given Rosuvastatin Calcium (Crestor) 2.5 mg PO [facility] Last Admin: 09/25/17 21:02 Dose: 2.5 mg - Labs Labs: 09/24/17 06:34 09/24/17 06:34 PT 11.8 SECONDS (9.7-12.2) 06/21/17 22:04 INR 1.1 06/21/17 22:04 APTT 32 SECONDS (21-34) 06/21/17 22:04 - Constitutional Appears: Well, No Acute Distress - Head Exam Head Exam: ATRAUMATIC, NORMAL INSPECTION - Eye Exam Eye Exam: EOMI, Normal appearance - ENT Exam ENT Exam: Mucous Membranes Moist - Respiratory Exam Respiratory Exam: Clear to Ausculation Bilateral, NORMAL BREATHING PATTERN. absent: Rhonchi, Wheezes, Respiratory Distress - Cardiovascular Exam Cardiovascular Exam: REGULAR RHYTHM, +S1, +S2. absent: Murmur - GI/Abdominal Exam GI & Abdominal Exam: Soft, Normal Bowel Sounds. absent: Firm, Guarding, Rigid, Tenderness - Extremities Exam Extremities Exam: Normal Inspection. absent: Calf Tenderness, Pedal Edema - Neurological Exam Neurological Exam: Alert, Awake, Oriented x3 - Psychiatric Exam Psychiatric exam: Normal Affect, Normal Mood - Skin Skin Exam: Normal Color Assessment and Plan (1) Dementia Assessment & Plan: Family Hx: patient had Alzheimer's Disease at age 71 * Patient was told by a neurologist he has early signs of dementia * Psych consult Dr. Valente --> help appreciated * CT scan of the head is negative * X-ray shows a apical granuloma * Neurology Dr. Manzanares-->help appreciated * Completed EEG 07/07/17 * Discussed patient may complete further workup as outpatient. * negative heavy metal screen * Repeat MRI 07/09: no acute intracranial abnormality. Mild chronic microangiopathic changes and mild age-related global parenchymal volume loss. Please note workup is in prior admission when patient eloped on discharge. * CT scan of the chest is negative and unremarkable * UDS is negative * UA: urine only + for ketones * Brain MRI: Limited motion degraded study. No evidence of acute hemorrhage or infarct. Minor chronic white matter ischemic changes are felt be present. Moderate generalized volume loss. * RPR: nonreactive * HIV: negative * TSH: within normal and repeat within normal * Folate: normal and repeat within normal * B12: normal and repeat within normal * Recommended to patient to follow-up with neurology outpatient and to establish care in the [facility] upon discharge Medications: * Aricept 10mg PO qHS * Namenda 10mg bid * Folic acid 1mg PO daily * Crestor 2.5mg PO HS Status: Chronic (2) Hypertension Assessment & Plan: Stable with medications Continue to monitor with vital signs continue home Cozaar 25mg PO daily Status: Chronic (3) Glucose intolerance (impaired glucose tolerance) Assessment & Plan: Hgba1c: 5.7 * Will need check in one year for a1c to prevent diabetes Status: Acute (4) Abnormal chest x-ray Assessment & Plan: F/u CT chest: unremarkable Status: Acute (5) Prophylactic measure Assessment & Plan: GI: Pepcid 20mg PO BID DVT: SCDs, Patient is ambulatory. * Appointed Wave Solder Offbearer: Court appointed, Mr. Los Henry, [address] [facility] [address] ; Temporary Guardian is Dangelo Thomas. Patient was scheduled for court 09/20/17 for permanent guardian. As per rn social services, Marina, the court as assigned patient to [place] office of public guardian; still working on the logistics (09/26/17) All plans and management discussed with Dr. Sawyer Status: Acute <Tamera Sawyer V - Last Filed: 09/26/17 20:30> Objective - Vital Signs/Intake and Output Vital Signs (last 24 hours): Temp Pulse Resp BP Pulse Ox 97.9 F 97 H 20 103/72 98 09/26/17 16:00 09/26/17 16:00 09/26/17 16:00 09/26/17 16:00 09/26/17 16:00 - Medications Medications: Current Medications Aspirin (Ecotrin) 81 mg PO DAILY [facility] Last Admin: 09/26/17 09:55 Dose: Not Given Donepezil HCl (Aricept) 10 mg PO HS [facility] Last Admin: 09/25/17 21:02 Dose: 10 mg Famotidine (Pepcid) 20 mg PO DAILY [facility] Last Admin: 09/26/17 09:56 Dose: Not Given Folic Acid (Folic Acid) 1 mg PO DAILY [facility] Last Admin: 09/26/17 09:56 Dose: Not Given Losartan Potassium (Cozaar) 25 mg PO DAILY [facility] Last Admin: 09/26/17 09:55 Dose: Not Given Memantine (Namenda) 10 mg PO DAILY [facility] Last Admin: 09/26/17 09:56 Dose: Not Given Rosuvastatin Calcium (Crestor) 2.5 mg PO HS [facility] Last Admin: 09/25/17 21:02 Dose: 2.5 mg - Labs Labs: 09/24/17 06:34 09/24/17 06:34 PT 11.8 SECONDS (9.7-12.2) 06/21/17 22:04 INR 1.1 06/21/17 22:04 APTT 32 SECONDS (21-34) 06/21/17 22:04 Attending/Attestation - Attestation I have personally seen and examined this patient.: Yes I have fully participated in the care of the patient.: Yes I have reviewed all pertinent clinical information, including history, physical exam and plan: Yes Notes (Text): Patient seen, examined, case discussed with medical insurance collector. Patient denies any acute complaints. Patient recognizes August 2017 and Solitario Marie is the President. Will need to follow-up with social work in regards 09/20/[address] Assessment/Plan: 1.) Family History of Alzheimer's Disease Early Onset of Dementia * Family Hx: patient had Alzheimer's Disease at age 71 * Patient was told by a neurologist he has early signs of dementia * Psych consult Dr. Valente --> help appreciated * CT scan of the head is negative * X-ray shows a apical granuloma * Neurology Dr. Manzanares-->help appreciated * Completed EEG 07/07/17 * Discussed patient may complete further workup as outpatient. * negative heavy metal screen * Repeat MRI 07/09: no acute intracranial abnormality. Mild chronic microangiopathic changes and mild age-related global parenchymal volume loss. Please note workup is in prior admission when patient eloped on discharge. * CT scan of the chest is negative and unremarkable * UDS is negative * UA: urine only + for ketones * Brain MRI: Limited motion degraded study. No evidence of acute hemorrhage or infarct. Minor chronic white matter ischemic changes are felt be present. Moderate generalized volume loss. * RPR: nonreactive * HIV: negative * TSH: within normal and repeat within normal * Folate: normal and repeat within normal * B12: normal and repeat within normal * Recommended to patient to follow-up with neurology outpatient and to establish care in the [facility] upon discharge Medications: * Aricept 10mg PO qHS * Namenda 10mg bid * Folic acid 1mg PO daily * Crestor 2.5mg PO HS 2.) Cough-->Resolved Nasal Congestion-->resolved * Chest xray (08/30/17): no active disease * Duonebs PRN shortness of breathe * Flonase 1 puff spray inhaled BID * Guafensin/codine 5ml PO Q4H PRN cough 3.) Anemia-->Resolved * Within normal * Monitor 4.) Hypokalemia-->resolved * resolved 5) Abnormal Chest xray-->resolved * CT Chest: no acute pathology noted; official report in the computer 6.) Impaired glucose tolerance * Hgba1c: 5.7 * Will need check in one year for a1c to prevent over diabetes 7.) HTN-->Chronic * continue home Cozaar 25mg PO daily * Aspirin 81mg PO daily * 2 gram diet 8.) Prophylaxis * Pepcid 20mg PO BID * Patient is ambulatory. * SCDs * Appointed Wave Solder Offbearer Mr. Los Henry, [address] [facility] [address] * Temporary guardian: Mr Dangelo Thomas temporary guardian until 09/20/17 * Update: As per rn social servicesNajma, the court as assigned patient to [place] office of public guardian; still working on the logistics (09/26/17) Disposition: Pending coordination between guardian, litigation attorney, case and social work for discharge planning.
[2017-09-26] MEDS: Rosuvastatin Calcium 2.5 mg Tab PO SCH (22:08)
[2017-09-27] MEDS: Rosuvastatin Calcium 2.5 mg Tab PO SCH (21:16)
--- NOTE | 2017-09-28 09:22 | CP.PCM.PN ---
<Dillon Pascual E - Last Filed: 09/28/17 14:57> Subjective - Date & Time of Evaluation Date of Evaluation: 09/28/17 Time of Evaluation: 07:30 - Subjective Subjective: Medicine progress note ( 's service) Patient was seen and examined at bedside. Patient reports that he is doing well and has no complaints. Patient remains in a very pleasant mood. Patient is oriented with location, year and remembers his date of . Objective - Vital Signs/Intake and Output Vital Signs (last 24 hours): Temp Pulse Resp BP Pulse Ox 98 F 87 20 106/76 96 09/28/17 08:22 09/28/17 08:22 09/28/17 08:22 09/28/17 08:22 09/28/17 08:22 Intake and Output: 09/28/17 09/28/17 06:59 18:59 Intake Total 400 Balance 400 - Medications Medications: Current Medications Aspirin (Ecotrin) 81 mg PO DAILY [facility] Last Admin: 09/28/17 09:06 Dose: 81 mg Donepezil HCl (Aricept) 10 mg PO [facility] Last Admin: 09/27/17 21:16 Dose: 10 mg Famotidine (Pepcid) 20 mg PO DAILY [facility] Last Admin: 09/28/17 09:06 Dose: 20 mg Folic Acid (Folic Acid) 1 mg PO DAILY [facility] Last Admin: 09/28/17 09:06 Dose: 1 mg Losartan Potassium (Cozaar) 25 mg PO DAILY [facility] Last Admin: 09/28/17 09:06 Dose: 25 mg Memantine (Namenda) 10 mg PO DAILY [facility] Last Admin: 09/28/17 09:06 Dose: 10 mg Rosuvastatin Calcium (Crestor) 2.5 mg PO [facility] Last Admin: 09/27/17 21:16 Dose: 2.5 mg - Labs Labs: 09/24/17 06:34 09/24/17 06:34 PT 11.8 SECONDS (9.7-12.2) 06/21/17 22:04 INR 1.1 06/21/17 22:04 APTT 32 SECONDS (21-34) 06/21/17 22:04 - Constitutional Appears: Well, No Acute Distress - Head Exam Head Exam: ATRAUMATIC, NORMAL INSPECTION - Eye Exam Eye Exam: EOMI, Normal appearance - ENT Exam ENT Exam: Mucous Membranes Moist - Respiratory Exam Respiratory Exam: Clear to Ausculation Bilateral, NORMAL BREATHING PATTERN. absent: Rhonchi - Cardiovascular Exam Cardiovascular Exam: REGULAR RHYTHM Assessment and Plan (1) Dementia Assessment & Plan: Family Hx: patient had Alzheimer's Disease at age 71 * Patient was told by a neurologist he has early signs of dementia * Psych consult Dr. Valente --> help appreciated * CT scan of the head is negative * X-ray shows a apical granuloma * Neurology Dr. Manzanares-->help appreciated * Completed EEG 07/07/17 * Discussed patient may complete further workup as outpatient. * negative heavy metal screen * Repeat MRI 07/09: no acute intracranial abnormality. Mild chronic microangiopathic changes and mild age-related global parenchymal volume loss. Please note workup is in prior admission when patient eloped on discharge. * CT scan of the chest is negative and unremarkable * UDS is negative * UA: urine only + for ketones * Brain MRI: Limited motion degraded study. No evidence of acute hemorrhage or infarct. Minor chronic white matter ischemic changes are felt be present. Moderate generalized volume loss. * RPR: nonreactive * HIV: negative * TSH: within normal and repeat within normal * Folate: normal and repeat within normal * B12: normal and repeat within normal * Recommended to patient to follow-up with neurology outpatient and to establish care in the [facility] upon discharge Medications: * Aricept 10mg PO qHS * Namenda 10mg bid * Folic acid 1mg PO daily * Crestor 2.5mg PO HS Status: Chronic (2) Hypertension Assessment & Plan: Stable with medications Continue to monitor with vital signs continue home Cozaar 25mg PO daily Status: Chronic (3) Glucose intolerance (impaired glucose tolerance) Assessment & Plan: Hgba1c: 5.7 * Will need check in one year for a1c to prevent diabetes Status: Acute (4) Abnormal chest x-ray Assessment & Plan: F/u CT chest: unremarkable Status: Acute (5) Prophylactic measure Assessment & Plan: GI: Pepcid 20mg PO BID DVT: SCDs, Patient is ambulatory. * Appointed Industrial Workers: Court appointed, Mr. Los Henry, [address] [facility] [address] ; Temporary Guardian is Dangelo Thomas. Patient was scheduled for court 09/20/17 for permanent guardian. As per Najma flores, the court as assigned patient to [place] office of public guardian; still working on the logistics (09/26/17) * The court as appointed a manager rn case to reopen the case and will follow up with patient at [facility] on 10/01/17 as per Najma flores All plans and management discussed with Dr. Sawyer Status: Acute <Tamera Sawyer V - Last Filed: 09/28/17 23:15> Objective - Vital Signs/Intake and Output Vital Signs (last 24 hours): Temp Pulse Resp BP Pulse Ox 98 F 78 20 122/82 96 09/28/17 16:00 09/28/17 16:00 09/28/17 16:00 09/28/17 16:00 09/28/17 16:00 Intake and Output: 09/28/17 09/29/17 18:59 06:59 Intake Total 480 500 Balance 480 500 - Medications Medications: Current Medications Aspirin (Ecotrin) 81 mg PO DAILY [facility] Last Admin: 09/28/17 09:06 Dose: 81 mg Donepezil HCl (Aricept) 10 mg PO HS [facility] Last Admin: 09/28/17 21:13 Dose: 10 mg Famotidine (Pepcid) 20 mg PO DAILY [facility] Last Admin: 09/28/17 09:06 Dose: 20 mg Folic Acid (Folic Acid) 1 mg PO DAILY [facility] Last Admin: 09/28/17 09:06 Dose: 1 mg Losartan Potassium (Cozaar) 25 mg PO DAILY [facility] Last Admin: 09/28/17 09:06 Dose: 25 mg Memantine (Namenda) 10 mg PO DAILY [facility] Last Admin: 09/28/17 09:06 Dose: 10 mg Rosuvastatin Calcium (Crestor) 2.5 mg PO HS [facility] Last Admin: 09/28/17 21:13 Dose: 2.5 mg - Labs Labs: 09/24/17 06:34 09/24/17 06:34 PT 11.8 SECONDS (9.7-12.2) 06/21/17 22:04 INR 1.1 06/21/17 22:04 APTT 32 SECONDS (21-34) 06/21/17 22:04 Attending/Attestation - Attestation I have personally seen and examined this patient.: Yes I have fully participated in the care of the patient.: Yes I have reviewed all pertinent clinical information, including history, physical exam and plan: Yes Notes (Text): patient seen, examined and case discussed with day-time resident. No acute events noted. No acute complaints by patient. We are awaiting new court date for 10/01/17. Will continue to follow Agree with assessment and plan as written by the resident.
[2017-09-28] MEDS: Rosuvastatin Calcium 2.5 mg Tab PO SCH (21:13)
--- NOTE | 2017-09-29 08:39 | CP.PCM.PN ---
Subjective - Date & Time of Evaluation Date of Evaluation: 09/29/17 Time of Evaluation: 08:35 - Subjective Subjective: Medical Attending Note: Patient seen and examined this morning. Patient denies acute complaints this morning. Objective - Vital Signs/Intake and Output Vital Signs (last 24 hours): Temp Pulse Resp BP Pulse Ox 97.3 F L 76 20 107/64 95 09/28/17 23:18 09/28/17 23:18 09/28/17 23:18 09/28/17 23:18 09/28/17 23:18 Intake and Output: 09/29/17 09/29/17 06:59 18:59 Intake Total 500 Balance 500 - Medications Medications: Current Medications Aspirin (Ecotrin) 81 mg PO DAILY [facility] Last Admin: 09/28/17 09:06 Dose: 81 mg Donepezil HCl (Aricept) 10 mg PO HS [facility] Last Admin: 09/28/17 21:13 Dose: 10 mg Famotidine (Pepcid) 20 mg PO DAILY [facility] Last Admin: 09/28/17 09:06 Dose: 20 mg Folic Acid (Folic Acid) 1 mg PO DAILY [facility] Last Admin: 09/28/17 09:06 Dose: 1 mg Losartan Potassium (Cozaar) 25 mg PO DAILY [facility] Last Admin: 09/28/17 09:06 Dose: 25 mg Memantine (Namenda) 10 mg PO DAILY [facility] Last Admin: 09/28/17 09:06 Dose: 10 mg Rosuvastatin Calcium (Crestor) 2.5 mg PO HS [facility] Last Admin: 09/28/17 21:13 Dose: 2.5 mg - Labs Labs: 09/24/17 06:34 09/24/17 06:34 PT 11.8 SECONDS (9.7-12.2) 06/21/17 22:04 INR 1.1 06/21/17 22:04 APTT 32 SECONDS (21-34) 06/21/17 22:04 - Constitutional Appears: Non-toxic, No Acute Distress - Head Exam Head Exam: NORMAL INSPECTION - Eye Exam Eye Exam: EOMI - ENT Exam ENT Exam: Mucous Membranes Moist - Respiratory Exam Respiratory Exam: Clear to Ausculation Bilateral, NORMAL BREATHING PATTERN. absent: Rales, Rhonchi, Wheezes - Cardiovascular Exam Cardiovascular Exam: REGULAR RHYTHM, +S1, +S2 - GI/Abdominal Exam GI & Abdominal Exam: Soft, Normal Bowel Sounds. absent: Distended, Firm, Guarding, Rigid, Tenderness, Rebound - Neurological Exam Neurological Exam: Alert, Awake, Normal Gait, Oriented x3 (disoriented to time, aware he is in the hospital, recognizes me at bedside) - Skin Skin Exam: Dry, Intact, Normal Color, Warm Attending/Attestation - Attestation I have personally seen and examined this patient.: Yes I have fully participated in the care of the patient.: Yes I have reviewed all pertinent clinical information, including history, physical exam and plan: Yes Notes (Text): Assessment and Plan (1) Dementia Assessment & Plan: Family Hx: patient had Alzheimer's Disease at age 71 * Patient was told by a neurologist he has early signs of dementia * Psych consult Dr. Valente --> help appreciated * CT scan of the head is negative * X-ray shows a apical granuloma * Neurology Dr. Manzanares-->help appreciated * Completed EEG 07/07/17 * Discussed patient may complete further workup as outpatient. * negative heavy metal screen * Repeat MRI 07/09: no acute intracranial abnormality. Mild chronic microangiopathic changes and mild age-related global parenchymal volume loss. Please note workup is in prior admission when patient eloped on discharge. * CT scan of the chest is negative and unremarkable * UDS is negative * UA: urine only + for ketones * Brain MRI: Limited motion degraded study. No evidence of acute hemorrhage or infarct. Minor chronic white matter ischemic changes are felt be present. Moderate generalized volume loss. * RPR: nonreactive * HIV: negative * TSH: within normal and repeat within normal * Folate: normal and repeat within normal * B12: normal and repeat within normal * Recommended to patient to follow-up with neurology outpatient and to establish care in the [facility] upon discharge Medications: * Aricept 10mg PO qHS * Namenda 10mg bid * Folic acid 1mg PO daily * Crestor 2.5mg PO HS Status: Chronic (2) Hypertension Assessment & Plan: * Stable with medications * Continue to monitor with vital signs * continue home Cozaar 25mg PO daily Status: Chronic (3) Glucose intolerance (impaired glucose tolerance) Assessment & Plan: * Hgba1c: 5.7 * Will need check in one year for a1c to prevent diabetes Status: Chronic (4) Abnormal chest x-ray Assessment & Plan: * F/u CT chest: unremarkable Status: Acute (5) Prophylactic measure Assessment & Plan: * GI: Pepcid 20mg PO BID * DVT: SCDs, Patient is ambulatory. * Appointed Truck Driver Heavy: Court appointed, Mr. Los Henry, [address] [facility] [address] ; Temporary Guardian is Dangelo Thomas. Patient was scheduled for court 09/20/17 for permanent guardian * Temporary Guardian--> patient assigned to the [place] Office of Public Guardian and case assigned to Lv Hooks * Social work update: Office of Public Guardian MACARIO Hooks ([phone]): she will come to the hospital on 10/01/17 in order to meet the patient and to open the case as of 09/28/17 note.
[2017-09-29] MEDS: Rosuvastatin Calcium 2.5 mg Tab PO SCH (21:31)
[2017-09-30] MEDS: Rosuvastatin Calcium 2.5 mg Tab PO SCH (21:36)
[2017-10-01 11:27] LABS: BASO % 0.3 % (0.0-2.0); EOS # 0.1 K/uL (0.0-0.7); EOS % 1.1 % (0.0-4.0); HEMOGLOBIN 14.2 g/dL (12.0-18.0); LYMPH # 1.4 K/uL (1.0-4.3); LYMPH % 26.4 % (20.0-40.0); MEAN CELL VOLUME 91.5 fL (80.0-94.0); MEAN CORPUSCULAR HEMOGLOBIN 32.2 pg (27.0-31.0); MEAN CORPUSCULAR HGB CONC 35.2 g/dL (33.0-37.0); MEAN PLATELET VOLUME 6.9 fL (7.2-11.7); MONO # 0.6 K/uL (0.0-0.8); MONO % 11.4 % (0.0-10.0); NEUT # 3.2 K/uL (1.8-7.0); NEUT % 60.8 % (50.0-75.0); NRBC % 0.1 % (0.0-2.0); RBC 4.42 Mil/uL (4.40-5.90); WHITE BLOOD COUNT 5.3 K/uL (4.8-10.8)
[2017-10-01 11:47] LABS: ALB/GLOB RATIO 1.4 (1.0-2.1); ALBUMIN 3.8 g/dL (3.5-5.0); ALT/SGPT 41 U/L (21-72); AST/SGOT 27 U/L (17-59); BLOOD UREA NITROGEN 8 mg/dL (9-20); CALCIUM 8.6 mg/dl (8.6-10.4); GFR AFRICAN-AMERICAN > 60; GFR NON-AFRICAN AMERICAN > 60
--- NOTE | 2017-10-01 15:58 | CP.PCM.PN ---
<Dillon Pascual - Last Filed: 10/01/17 16:03> Subjective - Date & Time of Evaluation Date of Evaluation: 10/01/17 Time of Evaluation: 07:00 - Subjective Subjective: Medicine Progress note (Dr. Donohue's service) Patient was seen and examined at bedside. Patient reports that he is doing well and remains in a very pleasant mood. Patient denies any complaints. As per clinical social work therapistNajma, patient is to be seen by machine adjuster leader case trim, Lv Hooks from the Office of Public Guardian. Objective - Vital Signs/Intake and Output Vital Signs (last 24 hours): Temp Pulse Resp BP Pulse Ox 97.6 F 83 20 108/74 96 10/01/17 08:02 10/01/17 08:02 10/01/17 08:02 10/01/17 08:02 10/01/17 08:02 Intake and Output: 10/01/17 10/01/17 06:59 18:59 Intake Total 480 Balance 480 - Medications Medications: Current Medications Aspirin (Ecotrin) 81 mg PO DAILY [facility] Last Admin: 10/01/17 09:48 Dose: 81 mg Donepezil HCl (Aricept) 10 mg PO HS [facility] Last Admin: 09/30/17 21:36 Dose: 10 mg Famotidine (Pepcid) 20 mg PO DAILY [facility] Last Admin: 10/01/17 09:48 Dose: 20 mg Folic Acid (Folic Acid) 1 mg PO DAILY [facility] Last Admin: 10/01/17 09:48 Dose: 1 mg Losartan Potassium (Cozaar) 25 mg PO DAILY [facility] Last Admin: 10/01/17 09:48 Dose: 25 mg Memantine (Namenda) 10 mg PO DAILY [facility] Last Admin: 10/01/17 09:48 Dose: 10 mg Rosuvastatin Calcium (Crestor) 2.5 mg PO HS [facility] Last Admin: 09/30/17 21:36 Dose: 2.5 mg - Labs Labs: 10/01/17 11:15 10/01/17 11:15 PT 11.8 SECONDS (9.7-12.2) 06/21/17 22:04 INR 1.1 06/21/17 22:04 APTT 32 SECONDS (21-34) 06/21/17 22:04 - Constitutional Appears: Well, No Acute Distress - Head Exam Head Exam: ATRAUMATIC, NORMAL INSPECTION - Eye Exam Eye Exam: EOMI, Normal appearance - ENT Exam ENT Exam: Mucous Membranes Moist - Respiratory Exam Respiratory Exam: Clear to Ausculation Bilateral, NORMAL BREATHING PATTERN. absent: Rhonchi, Wheezes, Respiratory Distress - Cardiovascular Exam Cardiovascular Exam: REGULAR RHYTHM, +S1, +S2. absent: Murmur - GI/Abdominal Exam GI & Abdominal Exam: Soft, Tenderness, Normal Bowel Sounds. absent: Firm, Guarding, Rigid - Extremities Exam Extremities Exam: Normal Inspection. absent: Calf Tenderness, Pedal Edema - Neurological Exam Neurological Exam: Alert, Awake - Psychiatric Exam Psychiatric exam: Normal Affect, Normal Mood - Skin Skin Exam: Normal Color Assessment and Plan (1) Dementia Assessment & Plan: Family Hx: patient had Alzheimer's Disease at age 71 * Patient was told by a neurologist he has early signs of dementia * Psych consult Dr. Valente --> help appreciated * CT scan of the head is negative * X-ray shows a apical granuloma * Neurology Dr. Manzanares-->help appreciated * Completed EEG 07/07/17 * Discussed patient may complete further workup as outpatient. * negative heavy metal screen * Repeat MRI 07/09: no acute intracranial abnormality. Mild chronic microangiopathic changes and mild age-related global parenchymal volume loss. Please note workup is in prior admission when patient eloped on discharge. * CT scan of the chest is negative and unremarkable * UDS is negative * UA: urine only + for ketones * Brain MRI: Limited motion degraded study. No evidence of acute hemorrhage or infarct. Minor chronic white matter ischemic changes are felt be present. Moderate generalized volume loss. * RPR: nonreactive * HIV: negative * TSH: within normal and repeat within normal * Folate: normal and repeat within normal * B12: normal and repeat within normal * Recommended to patient to follow-up with neurology outpatient and to establish care in the [facility] upon discharge Medications: * Aricept 10mg PO qHS * Namenda 10mg bid * Folic acid 1mg PO daily * Crestor 2.5mg PO HS Status: Chronic (2) Hypertension Assessment & Plan: Stable with medications Continue to monitor with vital signs continue home Cozaar 25mg PO daily Status: Chronic (3) Glucose intolerance (impaired glucose tolerance) Assessment & Plan: Hgba1c: 5.7 * Will need check in one year for a1c to prevent diabetes Status: Acute (4) Abnormal chest x-ray Assessment & Plan: F/u CT chest: unremarkable Status: Acute (5) Prophylactic measure Assessment & Plan: GI: Pepcid 20mg PO BID DVT: SCDs, Patient is ambulatory. * Appointed Senior Architect/Design Manager: Court appointed, Mr. Los Henry, [address] [facility] [address] ; Temporary Guardian is Dangelo Thomas. Patient was scheduled for court 09/20/17 for permanent guardian. * Update: As per clinical social work therapistNajma, the court as assigned patient to [place] office of public guardian; still working on the logistics (09/26/17). Patient will be seen by assigned machine adjuster leader case trim, Lv Hooks by the [place] office of public guardian All plans and management discussed with Dr. Donohue Status: Acute <Stephen Donohue - Last Filed: 10/19/17 14:57> Objective - Vital Signs/Intake and Output Vital Signs (last 24 hours): Temp Pulse Resp BP Pulse Ox 98.0 F 83 20 111/77 96 10/19/17 08:22 10/19/17 08:22 10/19/17 08:22 10/19/17 08:22 10/19/17 08:22 Intake and Output: 10/19/17 10/19/17 06:59 18:59 Intake Total 1080 480 Balance 1080 480 - Medications Medications: Current Medications Aspirin (Ecotrin) 81 mg PO DAILY [facility] Last Admin: 10/19/17 09:16 Dose: 81 mg Donepezil HCl (Aricept) 10 mg PO [facility] Last Admin: 10/18/17 21:14 Dose: 10 mg Famotidine (Pepcid) 20 mg PO DAILY [facility] Last Admin: 10/19/17 09:16 Dose: 20 mg Folic Acid (Folic Acid) 1 mg PO DAILY [facility] Last Admin: 10/19/17 09:16 Dose: 1 mg Losartan Potassium (Cozaar) 25 mg PO DAILY [facility] Last Admin: 10/19/17 09:16 Dose: 25 mg Memantine (Namenda) 10 mg PO DAILY [facility] Last Admin: 10/19/17 09:16 Dose: 10 mg Rosuvastatin Calcium (Crestor) 2.5 mg PO [facility] Last Admin: 10/18/17 21:14 Dose: 2.5 mg - Labs Labs: 10/15/17 06:39 10/15/17 06:39 PT 11.8 SECONDS (9.7-12.2) 06/21/17 22:04 INR 1.1 06/21/17 22:04 APTT 32 SECONDS (21-34) 06/21/17 22:04 Attending/Attestation - Attestation I have personally seen and examined this patient.: Yes I have fully participated in the care of the patient.: Yes I have reviewed all pertinent clinical information, including history, physical exam and plan: Yes Notes (Text): (1) Dementia (2) Hypertension (3) Glucose intolerance (impaired glucose tolerance) (4) Abnormal chest x-ray
[2017-10-01] MEDS: Rosuvastatin Calcium 2.5 mg Tab PO SCH (22:01)
[2017-10-02] MEDS: Rosuvastatin Calcium 2.5 mg Tab PO SCH (21:47)
--- NOTE | 2017-10-03 09:07 | CP.PCM.PN ---
<Dillon Pascual E - Last Filed: 10/03/17 09:02> Subjective - Date & Time of Evaluation Date of Evaluation: 10/03/17 Time of Evaluation: 06:45 - Subjective Subjective: Medicine progress note ( Dr. Janna Damon's service): Patient was seen and examined at bedside. Patient reports that he is doing well and has no complaints. Patient is oriented to place, date and time. Objective - Vital Signs/Intake and Output Vital Signs (last 24 hours): Temp Pulse Resp BP Pulse Ox 97.5 F L 91 H 20 115/78 97 10/03/17 08:34 10/03/17 08:34 10/03/17 08:34 10/03/17 08:34 10/03/17 08:34 Intake and Output: 10/03/17 10/03/17 06:59 18:59 Intake Total 500 240 Balance 500 240 - Medications Medications: Current Medications Aspirin (Ecotrin) 81 mg PO DAILY [facility] Last Admin: 10/02/17 09:42 Dose: 81 mg Donepezil HCl (Aricept) 10 mg PO [facility] Last Admin: 10/02/17 21:47 Dose: 10 mg Famotidine (Pepcid) 20 mg PO DAILY [facility] Last Admin: 10/02/17 09:42 Dose: 20 mg Folic Acid (Folic Acid) 1 mg PO DAILY [facility] Last Admin: 10/02/17 09:42 Dose: 1 mg Losartan Potassium (Cozaar) 25 mg PO DAILY [facility] Last Admin: 10/02/17 09:42 Dose: 25 mg Memantine (Namenda) 10 mg PO DAILY [facility] Last Admin: 10/02/17 09:42 Dose: 10 mg Rosuvastatin Calcium (Crestor) 2.5 mg PO [facility] Last Admin: 10/02/17 21:47 Dose: 2.5 mg - Labs Labs: 10/01/17 11:15 10/01/17 11:15 PT 11.8 SECONDS (9.7-12.2) 06/21/17 22:04 INR 1.1 06/21/17 22:04 APTT 32 SECONDS (21-34) 06/21/17 22:04 - Constitutional Appears: Well, No Acute Distress - Head Exam Head Exam: ATRAUMATIC, NORMAL INSPECTION - Eye Exam Eye Exam: EOMI, Normal appearance Pupil Exam: NORMAL ACCOMODATION, PERRL - ENT Exam ENT Exam: Mucous Membranes Moist - Respiratory Exam Respiratory Exam: Clear to Ausculation Bilateral, NORMAL BREATHING PATTERN. absent: Rhonchi, Wheezes, Respiratory Distress - Cardiovascular Exam Cardiovascular Exam: REGULAR RHYTHM, +S1, +S2 - GI/Abdominal Exam GI & Abdominal Exam: Soft, Normal Bowel Sounds. absent: Guarding, Rigid, Tenderness - Extremities Exam Extremities Exam: Normal Inspection. absent: Calf Tenderness, Pedal Edema - Back Exam Back Exam: NORMAL INSPECTION - Neurological Exam Neurological Exam: Alert, Awake, Oriented x3 - Psychiatric Exam Psychiatric exam: Normal Affect - Skin Skin Exam: Normal Color Assessment and Plan (1) Dementia Assessment & Plan: Family Hx: patient had Alzheimer's Disease at age 71 * Patient was told by a neurologist he has early signs of dementia * Psych consult Dr. Valente --> help appreciated * CT scan of the head is negative * X-ray shows a apical granuloma * Neurology Dr. Manzanares-->help appreciated * Completed EEG 07/07/17 * Discussed patient may complete further workup as outpatient. * negative heavy metal screen * Repeat MRI 07/09: no acute intracranial abnormality. Mild chronic microangiopathic changes and mild age-related global parenchymal volume loss. Please note workup is in prior admission when patient eloped on discharge. * CT scan of the chest is negative and unremarkable * UDS is negative * UA: urine only + for ketones * Brain MRI: Limited motion degraded study. No evidence of acute hemorrhage or infarct. Minor chronic white matter ischemic changes are felt be present. Moderate generalized volume loss. * RPR: nonreactive * HIV: negative * TSH: within normal and repeat within normal * Folate: normal and repeat within normal * B12: normal and repeat within normal * Recommended to patient to follow-up with neurology outpatient and to establish care in the [facility] upon discharge Medications: * Aricept 10mg PO qHS * Namenda 10mg bid * Folic acid 1mg PO daily * Crestor 2.5mg PO HS Status: Chronic (2) Hypertension Assessment & Plan: Stable with medications Continue to monitor with vital signs continue home Cozaar 25mg PO daily Status: Chronic (3) Glucose intolerance (impaired glucose tolerance) Assessment & Plan: Hgba1c: 5.7 * Will need check in one year for a1c to prevent diabetes Status: Acute (4) Abnormal chest x-ray Assessment & Plan: F/u CT chest: unremarkable Status: Acute (5) Prophylactic measure Assessment & Plan: GI: Pepcid 20mg PO BID DVT: SCDs, Patient is ambulatory. * Appointed Pipelines Manager: Court appointed, Mr. Los Henry, [address] [facility] [address] ; Temporary Guardian is Dangelo Thomas. Patient was scheduled for court 09/20/17 for permanent guardian. * Update: As per medical social consultantNajma, the court as assigned patient to [place] office of public guardian; still working on the logistics (09/26/17). Patient will be seen by assigned counter caser, Lv Hooks by the [place] office of public guardian on 10/01/17 All plans and management discussed with Dr. Gary Damon Status: Acute <Gary Damon - Last Filed: 10/03/17 18:32> Objective - Vital Signs/Intake and Output Vital Signs (last 24 hours): Temp Pulse Resp BP Pulse Ox 98.2 F 92 H 20 108/73 96 10/03/17 15:00 10/03/17 15:00 10/03/17 15:00 10/03/17 15:00 10/03/17 15:00 Intake and Output: 10/03/17 10/03/17 06:59 18:59 Intake Total 500 720 Balance 500 720 - Medications Medications: Current Medications Aspirin (Ecotrin) 81 mg PO DAILY [facility] Last Admin: 10/03/17 09:57 Dose: 81 mg Donepezil HCl (Aricept) 10 mg PO [facility] Last Admin: 10/02/17 21:47 Dose: 10 mg Famotidine (Pepcid) 20 mg PO DAILY [facility] Last Admin: 10/03/17 09:57 Dose: 20 mg Folic Acid (Folic Acid) 1 mg PO DAILY [facility] Last Admin: 10/03/17 09:57 Dose: 1 mg Losartan Potassium (Cozaar) 25 mg PO DAILY [facility] Last Admin: 10/03/17 09:57 Dose: 25 mg Memantine (Namenda) 10 mg PO DAILY [facility] Last Admin: 10/03/17 09:57 Dose: 10 mg Rosuvastatin Calcium (Crestor) 2.5 mg PO [facility] Last Admin: 10/02/17 21:47 Dose: 2.5 mg - Labs Labs: 10/01/17 11:15 10/01/17 11:15 PT 11.8 SECONDS (9.7-12.2) 06/21/17 22:04 INR 1.1 06/21/17 22:04 APTT 32 SECONDS (21-34) 06/21/17 22:04 Attending/Attestation - Attestation I have personally seen and examined this patient.: Yes I have fully participated in the care of the patient.: Yes I have reviewed all pertinent clinical information, including history, physical exam and plan: Yes Notes (Text): 10/03/17 18:30 Patient was seen and examined at 10:30 AM 10/03/17 358 A Upon FULL ROS NO dysphagia/odynopahgia NO soreness in throat NO cough NO sinus/nasal congestion NO fever/chills NO muscle aches/pains NO joint pain NO chest pain/palpations NO SOB NO abdominal pain NO n/v/d/c NO burning pain with urination NO CHAMPION NO lightheadedness/dizziness NO paresthesias Exam: General: AAOX3, NAD HEENT: NCA, EOMI, PERRLA, NO cervical/supraclavicular/submandibular lymphadenopathy, NO pharyngeal erythema/exudate, Nasal Turbinates are nonerythematous/nonedematous, Oral Mucosa is moist Cardio: NS1 and NS2, NO M/R/G Resp: CTA B/L, NO R/R/W GI: BSx4, Soft, NT, NO HSM, NO guarding/rebound tenderness Ext: Pulses are strong and equal, Capillary Refill is 2 seconds, NO edema Neuro: CN II through XII are grossly intact Assessment and Plan: 1). Dimentia: Aricept, Namenda, Folic Acid, Crestor, ASA 2). Anemia: resolved 3). Hypokalemia: resolved 4). Abnormal Chest X Ray: CT Chest was unremarkable 5). Impaired Fasting Glucose: HgBA1C was 5.7 6). HTN: Cozaar 7). Prophylaxis: Pepcid, SCD, Lovenox Awaiting Office of Public Guardianship Foster Care Therapist Lv Hooks [phone] to arrange for permanent placement for patient. Gary Damon D.O.
[2017-10-03] MEDS: Rosuvastatin Calcium 2.5 mg Tab PO SCH (22:00)
--- NOTE | 2017-10-04 17:39 | CP.PCM.PN ---
Subjective - Date & Time of Evaluation Date of Evaluation: 10/04/17 Time of Evaluation: 11:15 - Subjective Subjective: Patient was seen and examined at 11:15 AM 10/04/17 358 A Upon FULL ROS NO dysphagia/odynopahgia NO soreness in throat NO cough NO sinus/nasal congestion NO fever/chills NO muscle aches/pains NO joint pain NO chest pain/palpations NO SOB NO abdominal pain NO n/v/d/c NO burning pain with urination NO CHAMPION NO lightheadedness/dizziness NO paresthesias Exam: General: AAOX3, NAD HEENT: NCA, EOMI, PERRLA, NO cervical/supraclavicular/submandibular lymphadenopathy, NO pharyngeal erythema/exudate, Nasal Turbinates are nonerythematous/nonedematous, Oral Mucosa is moist Cardio: NS1 and NS2, NO M/R/G Resp: CTA B/L, NO R/R/W GI: BSx4, Soft, NT, NO HSM, NO guarding/rebound tenderness Ext: Pulses are strong and equal, Capillary Refill is 2 seconds, NO edema Neuro: CN II through XII are grossly intact Assessment and Plan: 1). Dimentia: Aricept, Namenda, Folic Acid, Crestor, ASA 2). Anemia: resolved 3). Hypokalemia: resolved 4). Abnormal Chest X Ray: CT Chest was unremarkable 5). Impaired Fasting Glucose: HgBA1C was 5.7 6). HTN: Cozaar 7). Prophylaxis: Pepcid, SCD, Lovenox Awaiting Office of Public Guardianship [employer] Paralegal Lv Hooks [phone] to arrange for permanent placement for patient. Gary Damon D.O. Objective - Vital Signs/Intake and Output Vital Signs (last 24 hours): Temp Pulse Resp BP Pulse Ox 97.4 F L 78 20 117/75 97 10/04/17 16:00 10/04/17 16:00 10/04/17 16:00 10/04/17 16:00 10/04/17 16:00 Intake and Output: 10/04/17 10/04/17 06:59 18:59 Intake Total 620 480 Balance 620 480 - Medications Medications: Current Medications Aspirin (Ecotrin) 81 mg PO DAILY [facility] Last Admin: 10/04/17 09:41 Dose: 81 mg Donepezil HCl (Aricept) 10 mg PO HS [facility] Last Admin: 10/03/17 22:00 Dose: 10 mg Famotidine (Pepcid) 20 mg PO DAILY [facility] Last Admin: 10/04/17 09:41 Dose: 20 mg Folic Acid (Folic Acid) 1 mg PO DAILY [facility] Last Admin: 10/04/17 09:41 Dose: 1 mg Losartan Potassium (Cozaar) 25 mg PO DAILY [facility] Last Admin: 10/04/17 09:41 Dose: 25 mg Memantine (Namenda) 10 mg PO DAILY [facility] Last Admin: 10/04/17 09:40 Dose: 10 mg Rosuvastatin Calcium (Crestor) 2.5 mg PO HS [facility] Last Admin: 10/03/17 22:00 Dose: 2.5 mg - Labs Labs: 10/01/17 11:15 10/01/17 11:15 PT 11.8 SECONDS (9.7-12.2) 06/21/17 22:04 INR 1.1 06/21/17 22:04 APTT 32 SECONDS (21-34) 06/21/17 22:04
[2017-10-04] MEDS: Rosuvastatin Calcium 2.5 mg Tab PO SCH (21:19)
--- NOTE | 2017-10-05 09:17 | CP.PCM.PN ---
Subjective - Date & Time of Evaluation Date of Evaluation: 10/05/17 Time of Evaluation: 09:15 - Subjective Subjective: Patient was seen and examined at 9:15 AM 10/05/17 358 A Upon FULL ROS NO dysphagia/odynopahgia NO soreness in throat NO cough NO sinus/nasal congestion NO fever/chills NO muscle aches/pains NO joint pain NO chest pain/palpations NO SOB NO abdominal pain NO n/v/d/c NO burning pain with urination NO CHAMPION NO lightheadedness/dizziness NO paresthesias Exam: General: AAOX3, NAD HEENT: NCA, EOMI, PERRLA, NO cervical/supraclavicular/submandibular lymphadenopathy, NO pharyngeal erythema/exudate, Nasal Turbinates are nonerythematous/nonedematous, Oral Mucosa is moist Cardio: NS1 and NS2, NO M/R/G Resp: CTA B/L, NO R/R/W GI: BSx4, Soft, NT, NO HSM, NO guarding/rebound tenderness Ext: Pulses are strong and equal, Capillary Refill is 2 seconds, NO edema Neuro: CN II through XII are grossly intact Assessment and Plan: 1). Dimentia: Aricept, Namenda, Folic Acid, Crestor, ASA 2). Anemia: resolved 3). Hypokalemia: resolved 4). Abnormal Chest X Ray: CT Chest was unremarkable 5). Impaired Fasting Glucose: HgBA1C was 5.7 6). HTN: Cozaar 7). Prophylaxis: Pepcid, SCD, Lovenox Awaiting Office of Public Guardianship Community Chest Officer Lv Hooks [phone] to arrange for permanent placement for patient. Gary Damon D.O. Objective - Vital Signs/Intake and Output Vital Signs (last 24 hours): Temp Pulse Resp BP Pulse Ox 98.2 F 80 20 110/69 98 10/05/17 07:47 10/05/17 07:47 10/05/17 07:47 10/05/17 07:47 10/05/17 07:47 Intake and Output: 10/05/17 10/05/17 06:59 18:59 Intake Total 500 240 Balance 500 240 - Medications Medications: Current Medications Aspirin (Ecotrin) 81 mg PO DAILY [facility] Last Admin: 10/04/17 09:41 Dose: 81 mg Donepezil HCl (Aricept) 10 mg PO HS [facility] Last Admin: 10/04/17 21:19 Dose: 10 mg Famotidine (Pepcid) 20 mg PO DAILY [facility] Last Admin: 10/04/17 09:41 Dose: 20 mg Folic Acid (Folic Acid) 1 mg PO DAILY [facility] Last Admin: 10/04/17 09:41 Dose: 1 mg Losartan Potassium (Cozaar) 25 mg PO DAILY [facility] Last Admin: 10/04/17 09:41 Dose: 25 mg Memantine (Namenda) 10 mg PO DAILY [facility] Last Admin: 10/04/17 09:40 Dose: 10 mg Rosuvastatin Calcium (Crestor) 2.5 mg PO HS [facility] Last Admin: 10/04/17 21:19 Dose: 2.5 mg - Labs Labs: 10/01/17 11:15 10/01/17 11:15 PT 11.8 SECONDS (9.7-12.2) 06/21/17 22:04 INR 1.1 06/21/17 22:04 APTT 32 SECONDS (21-34) 06/21/17 22:04
[2017-10-05] MEDS: Rosuvastatin Calcium 2.5 mg Tab PO SCH (22:30)
--- NOTE | 2017-10-06 10:06 | CP.PCM.PN ---
Subjective - Date & Time of Evaluation Date of Evaluation: 10/06/17 Time of Evaluation: 10:00 - Subjective Subjective: Patient was seen and examined at 10:00 AM 10/06/17 358 A Upon FULL ROS NO dysphagia/odynopahgia NO soreness in throat NO cough NO sinus/nasal congestion NO fever/chills NO muscle aches/pains NO joint pain NO chest pain/palpations NO SOB NO abdominal pain NO n/v/d/c NO burning pain with urination NO CHAMPION NO lightheadedness/dizziness NO paresthesias Exam: General: AAOX3, NAD HEENT: NCA, EOMI, PERRLA, NO cervical/supraclavicular/submandibular lymphadenopathy, NO pharyngeal erythema/exudate, Nasal Turbinates are nonerythematous/nonedematous, Oral Mucosa is moist Cardio: NS1 and NS2, NO M/R/G Resp: CTA B/L, NO R/R/W GI: BSx4, Soft, NT, NO HSM, NO guarding/rebound tenderness Ext: Pulses are strong and equal, Capillary Refill is 2 seconds, NO edema Neuro: CN II through XII are grossly intact Assessment and Plan: 1). Dimentia: Aricept, Namenda, Folic Acid, Crestor, ASA 2). Anemia: resolved 3). Hypokalemia: resolved 4). Abnormal Chest X Ray: CT Chest was unremarkable 5). Impaired Fasting Glucose: HgBA1C was 5.7 6). HTN: Cozaar 7). Prophylaxis: Pepcid, SCD, Patient is continuing to walk every 1 to 2 hours on the medical floor (this has been witnessed by me) Awaiting Office of Public Guardianship Secured Entrance Monitor Lv Hooks [phone] to arrange for permanent placement for patient. Gary Damon D.O. Objective - Vital Signs/Intake and Output Vital Signs (last 24 hours): Temp Pulse Resp BP Pulse Ox 98.3 F 100 H 20 122/61 94 L 10/06/17 08:33 10/06/17 08:33 10/06/17 08:33 10/06/17 08:33 10/06/17 08:33 Intake and Output: 10/06/17 10/06/17 06:59 18:59 Intake Total 450 240 Balance 450 240 - Medications Medications: Current Medications Aspirin (Ecotrin) 81 mg PO DAILY [facility] Last Admin: 10/05/17 09:34 Dose: 81 mg Donepezil HCl (Aricept) 10 mg PO HS [facility] Last Admin: 10/05/17 22:30 Dose: 10 mg Famotidine (Pepcid) 20 mg PO DAILY [facility] Last Admin: 10/05/17 09:34 Dose: 20 mg Folic Acid (Folic Acid) 1 mg PO DAILY [facility] Last Admin: 10/05/17 09:34 Dose: 1 mg Losartan Potassium (Cozaar) 25 mg PO DAILY [facility] Last Admin: 10/05/17 09:34 Dose: 25 mg Memantine (Namenda) 10 mg PO DAILY [facility] Last Admin: 10/05/17 09:34 Dose: 10 mg Rosuvastatin Calcium (Crestor) 2.5 mg PO HS [facility] Last Admin: 10/05/17 22:30 Dose: 2.5 mg - Labs Labs: 10/01/17 11:15 10/01/17 11:15 PT 11.8 SECONDS (9.7-12.2) 06/21/17 22:04 INR 1.1 06/21/17 22:04 APTT 32 SECONDS (21-34) 06/21/17 22:04
[2017-10-06] MEDS: Rosuvastatin Calcium 2.5 mg Tab PO SCH (21:59)
--- NOTE | 2017-10-07 15:13 | CP.PCM.PN ---
Subjective - Date & Time of Evaluation Date of Evaluation: 10/07/17 Time of Evaluation: 11:45 - Subjective Subjective: Patient was seen and examined at 11:45 AM 10/07/17 358 A Upon FULL ROS NO dysphagia/odynopahgia NO soreness in throat NO cough NO sinus/nasal congestion NO fever/chills NO muscle aches/pains NO joint pain NO chest pain/palpations NO SOB NO abdominal pain NO n/v/d/c NO burning pain with urination NO CHAMPION NO lightheadedness/dizziness NO paresthesias Exam: General: AAOX3, NAD HEENT: NCA, EOMI, PERRLA, NO cervical/supraclavicular/submandibular lymphadenopathy, NO pharyngeal erythema/exudate, Nasal Turbinates are nonerythematous/nonedematous, Oral Mucosa is moist Cardio: NS1 and NS2, NO M/R/G Resp: CTA B/L, NO R/R/W GI: BSx4, Soft, NT, NO HSM, NO guarding/rebound tenderness Ext: Pulses are strong and equal, Capillary Refill is 2 seconds, NO edema Neuro: CN II through XII are grossly intact Assessment and Plan: 1). Dimentia: Aricept, Namenda, Folic Acid, Crestor, ASA 2). Anemia: resolved 3). Hypokalemia: resolved 4). Abnormal Chest X Ray: CT Chest was unremarkable 5). Impaired Fasting Glucose: HgBA1C was 5.7 6). HTN: Cozaar 7). Prophylaxis: Pepcid, SCD, Patient is continuing to walk every 1 to 2 hours on the medical floor (this has been witnessed by me) Awaiting Office of Public Guardianship Timber Killer Lv Hooks [phone] to arrange for permanent placement for patient. Gary Damon D.O. Objective - Vital Signs/Intake and Output Vital Signs (last 24 hours): Temp Pulse Resp BP Pulse Ox 97.8 F 68 20 144/78 95 10/07/17 09:19 10/07/17 09:19 10/07/17 09:19 10/07/17 09:19 10/07/17 09:19 Intake and Output: 10/07/17 10/07/17 06:59 18:59 Intake Total 720 Balance 720 - Medications Medications: Current Medications Aspirin (Ecotrin) 81 mg PO DAILY [facility] Last Admin: 10/07/17 09:53 Dose: 81 mg Donepezil HCl (Aricept) 10 mg PO HS [facility] Last Admin: 10/06/17 21:59 Dose: 10 mg Famotidine (Pepcid) 20 mg PO DAILY [facility] Last Admin: 10/07/17 09:53 Dose: 20 mg Folic Acid (Folic Acid) 1 mg PO DAILY [facility] Last Admin: 10/07/17 09:53 Dose: 1 mg Losartan Potassium (Cozaar) 25 mg PO DAILY [facility] Last Admin: 10/07/17 09:53 Dose: 25 mg Memantine (Namenda) 10 mg PO DAILY [facility] Last Admin: 10/07/17 09:53 Dose: 10 mg Rosuvastatin Calcium (Crestor) 2.5 mg PO HS [facility] Last Admin: 10/06/17 21:59 Dose: 2.5 mg - Labs Labs: 10/01/17 11:15 10/01/17 11:15 PT 11.8 SECONDS (9.7-12.2) 06/21/17 22:04 INR 1.1 06/21/17 22:04 APTT 32 SECONDS (21-34) 06/21/17 22:04
[2017-10-07] MEDS: Rosuvastatin Calcium 2.5 mg Tab PO SCH (21:15)
--- NOTE | 2017-10-08 07:36 | CP.PCM.PN ---
<Vidya Jean-Baptiste - Last Filed: 10/08/17 10:00> Subjective - Date & Time of Evaluation Date of Evaluation: 10/08/17 Time of Evaluation: 07:36 - Subjective Subjective: Medicine progress note for Dr. Sawyer's service Patient was seen and examined at bedside in no acute acute distress. Patient reports feeling well and has no complaints. When asked where he is and the date , patient states he is in [facility] and its September 2017. Patient did ask why hes back in the hospital. Patient denies chest pain, abdominal pain, shortness of breath, n/v/d/c, fever, chills. Objective - Vital Signs/Intake and Output Vital Signs (last 24 hours): Temp Pulse Resp BP Pulse Ox 99.6 F 92 H 20 118/60 95 10/08/17 00:00 10/08/17 00:00 10/08/17 00:00 10/08/17 00:00 10/08/17 00:00 Intake and Output: 10/08/17 10/08/17 06:59 18:59 Intake Total 700 Output Total 700 Balance 0 - Medications Medications: Current Medications Aspirin (Ecotrin) 81 mg PO DAILY [facility] Last Admin: 10/07/17 09:53 Dose: 81 mg Donepezil HCl (Aricept) 10 mg PO HS [facility] Last Admin: 10/07/17 21:15 Dose: 10 mg Famotidine (Pepcid) 20 mg PO DAILY [facility] Last Admin: 10/07/17 09:53 Dose: 20 mg Folic Acid (Folic Acid) 1 mg PO DAILY [facility] Last Admin: 10/07/17 09:53 Dose: 1 mg Losartan Potassium (Cozaar) 25 mg PO DAILY [facility] Last Admin: 10/07/17 09:53 Dose: 25 mg Memantine (Namenda) 10 mg PO DAILY [facility] Last Admin: 10/07/17 09:53 Dose: 10 mg Rosuvastatin Calcium (Crestor) 2.5 mg PO HS [facility] Last Admin: 10/07/17 21:15 Dose: 2.5 mg - Labs Labs: 10/01/17 11:15 10/01/17 11:15 PT 11.8 SECONDS (9.7-12.2) 06/21/17 22:04 INR 1.1 06/21/17 22:04 APTT 32 SECONDS (21-34) 06/21/17 22:04 - Constitutional Appears: Non-toxic, No Acute Distress - Head Exam Head Exam: ATRAUMATIC, NORMAL INSPECTION - Eye Exam Eye Exam: EOMI, Normal appearance - ENT Exam ENT Exam: Mucous Membranes Moist - Respiratory Exam Respiratory Exam: Clear to Ausculation Bilateral, NORMAL BREATHING PATTERN. absent: Rales, Rhonchi, Wheezes, Respiratory Distress - Cardiovascular Exam Cardiovascular Exam: REGULAR RHYTHM, +S1, +S2 - GI/Abdominal Exam GI & Abdominal Exam: Soft, Normal Bowel Sounds. absent: Distended, Firm, Tenderness - Extremities Exam Extremities Exam: Normal Inspection. absent: Pedal Edema, Tenderness - Neurological Exam Neurological Exam: Alert, Awake, Normal Gait - Psychiatric Exam Psychiatric exam: Normal Affect, Normal Mood - Skin Skin Exam: Dry, Intact, Normal Color, Warm Assessment and Plan (1) Dementia Status: Chronic (2) HTN (hypertension) Status: Chronic - Assessment and Plan (Free Text) Plan: (1) Dementia Assessment & Plan: Family Hx: patient had Alzheimer's Disease at age 71 * Patient was told by a neurologist he has early signs of dementia * Psych consult Dr. Valente --> help appreciated * CT scan of the head is negative * X-ray (06/18/17) shows a left apical granuloma * Repeat chest xra y(08/30/17): no active disease * Neurology Dr. Manzanares-->help appreciated * Completed EEG 07/07/17 * Discussed patient may complete further workup as outpatient. * negative heavy metal screen * Repeat MRI 07/09: no acute intracranial abnormality. Mild chronic microangiopathic changes and mild age-related global parenchymal volume loss. Please note workup is in prior admission when patient eloped on discharge. * CT scan of the chest is negative and unremarkable * UDS is negative * UA: urine only + for ketones * Brain MRI: Limited motion degraded study. No evidence of acute hemorrhage or infarct. Minor chronic white matter ischemic changes are felt be present. Moderate generalized volume loss. * RPR: nonreactive * HIV: negative * TSH: within normal and repeat within normal * Folate: normal and repeat within normal * B12: normal and repeat within normal * Recommended to patient to follow-up with neurology outpatient and to establish care in the [facility] upon discharge Medications: * Aricept 10mg PO qHS * Namenda 10mg bid * Folic acid 1mg PO daily * Crestor 2.5mg PO HS Status: Chronic (2) Hypertension Assessment & Plan: Stable with medications Continue to monitor with vital signs continue home Cozaar 25mg PO daily Status: Chronic (3) Glucose intolerance (impaired glucose tolerance) Assessment & Plan: Hgba1c: 5.7 * Will recheck in one year (4) Abnormal chest x-ray Assessment & Plan: CT chest (06/18/17): unremarkable Chest Xray (08/30/17): no active disease (5) Prophylactic measure Assessment & Plan: GI: Pepcid 20mg PO Daily DVT: SCDs, Patient is ambulatory; walks Q1-2hrs Disposition: Appointed Construction Engineer: Court appointed, Mr. Los Luke Carl, [address] [place] [address] ; * Update: Awaiting Office of Public Guardianship System Engineer Lv Hooks to arrange for permanent placement for patient. <Tamera Sawyer V - Last Filed: 10/08/17 22:13> Objective - Vital Signs/Intake and Output Vital Signs (last 24 hours): Temp Pulse Resp BP Pulse Ox 97.2 F L 89 20 131/85 97 10/08/17 08:00 10/08/17 08:00 10/08/17 08:00 10/08/17 08:00 10/08/17 08:00 Intake and Output: 10/08/17 10/08/17 06:59 18:59 Intake Total 700 Output Total 700 Balance 0 - Medications Medications: Current Medications Aspirin (Ecotrin) 81 mg PO DAILY [facility] Last Admin: 10/08/17 09:46 Dose: 81 mg Donepezil HCl (Aricept) 10 mg PO HS [facility] Last Admin: 10/07/17 21:15 Dose: 10 mg Famotidine (Pepcid) 20 mg PO DAILY [facility] Last Admin: 10/08/17 09:45 Dose: 20 mg Folic Acid (Folic Acid) 1 mg PO DAILY [facility] Last Admin: 10/08/17 09:46 Dose: 1 mg Losartan Potassium (Cozaar) 25 mg PO DAILY [facility] Last Admin: 10/08/17 09:46 Dose: 25 mg Memantine (Namenda) 10 mg PO DAILY [facility] Last Admin: 10/08/17 09:45 Dose: 10 mg Rosuvastatin Calcium (Crestor) 2.5 mg PO HS [facility] Last Admin: 10/07/17 21:15 Dose: 2.5 mg - Labs Labs: 10/08/17 11:29 10/08/17 11:29 PT 11.8 SECONDS (9.7-12.2) 06/21/17 22:04 INR 1.1 06/21/17 22:04 APTT 32 SECONDS (21-34) 06/21/17 22:04 Attending/Attestation - Attestation I have personally seen and examined this patient.: Yes I have fully participated in the care of the patient.: Yes I have reviewed all pertinent clinical information, including history, physical exam and plan: Yes Notes (Text): Patient seen, examined and case discussed with medical dermatologist. No acute events overnight. Patient eating cookies at bedside. Patient initially reports its Sep 13 2017 but as always he is able to identify the president as Cynthia and recognizes me as his doctor as well as my name. We are awaiting placement. Social work is currently working on this. Assessment/Plan (1) Dementia Assessment & Plan: Family Hx: patient had Alzheimer's Disease at age 71 * Patient was told by a neurologist he has early signs of dementia * Psych consult Dr. Valente --> help appreciated * CT scan of the head is negative * X-ray shows a apical granuloma * Neurology Dr. Manzanares-->help appreciated * Completed EEG 07/07/17 * Discussed patient may complete further workup as outpatient. * negative heavy metal screen * Repeat MRI 07/09: no acute intracranial abnormality. Mild chronic microangiopathic changes and mild age-related global parenchymal volume loss. Please note workup is in prior admission when patient eloped on discharge. * CT scan of the chest is negative and unremarkable * UDS is negative * UA: urine only + for ketones * Brain MRI: Limited motion degraded study. No evidence of acute hemorrhage or infarct. Minor chronic white matter ischemic changes are felt be present. Moderate generalized volume loss. * RPR: nonreactive * HIV: negative * TSH: within normal and repeat within normal * Folate: normal and repeat within normal * B12: normal and repeat within normal * Recommended to patient to follow-up with neurology outpatient and to establish care in the [facility] upon discharge Medications: * Aricept 10mg PO qHS * Namenda 10mg bid * Folic acid 1mg PO daily * Crestor 2.5mg PO HS Status: Chronic (2) Hypertension Assessment & Plan: * Stable with medications * Continue to monitor with vital signs * continue home Cozaar 25mg PO daily Status: Chronic (3) Glucose intolerance (impaired glucose tolerance) Assessment & Plan: * Hgba1c: 5.7 * Will need check in one year for a1c to prevent diabetes Status: Chronic (4) Abnormal chest x-ray Assessment & Plan: * F/u CT chest: unremarkable Status: Acute (5) Prophylactic measure Assessment & Plan: * GI: Pepcid 20mg PO BID * DVT: SCDs, Patient is ambulatory. * Appointed Construction Engineer: Court appointed, Mr. Los Henry, [address] [place] [address] ; Temporary Guardian is Dangelo Thomas. Patient was scheduled for court 09/20/17 for permanent guardian * Temporary Guardian--> patient assigned to the [place] Office of Public Guardian and case assigned to Lv Hooks * Social work update: Office of Public Guardian MACARIO Hooks ([phone]) on board * Social work has found options however one only accepts Medicaid; referral has been made; will need to follow-up.
[2017-10-08 11:40] LABS: BASO % 0.2 % (0.0-2.0); EOS % 0.1 % (0.0-4.0); HEMOGLOBIN 14.5 g/dL (12.0-18.0); LYMPH # 1.6 K/uL (1.0-4.3); LYMPH % 12.7 % (20.0-40.0); MEAN CORPUSCULAR HEMOGLOBIN 31.2 pg (27.0-31.0); MEAN CORPUSCULAR HGB CONC 34.3 g/dL (33.0-37.0); MEAN PLATELET VOLUME 7.1 fL (7.2-11.7); MONO # 1.5 K/uL (0.0-0.8); MONO % 12.5 % (0.0-10.0); NEUT # 9.1 K/uL (1.8-7.0); NEUT % 74.5 % (50.0-75.0); RBC 4.64 Mil/uL (4.40-5.90); RED CELL DISTRIBUTION WIDTH 13.2 % (11.5-14.5)
[2017-10-08 11:47] LABS: WHITE BLOOD COUNT 12.2 K/uL (4.8-10.8)
[2017-10-08 12:07] LABS: ALB/GLOB RATIO 1.4 (1.0-2.1); ALBUMIN 4.3 g/dL (3.5-5.0); ALT/SGPT 35 U/L (21-72); AST/SGOT 28 U/L (17-59); BLOOD UREA NITROGEN 10 mg/dL (9-20); CALCIUM 9.1 mg/dl (8.6-10.4); GFR AFRICAN-AMERICAN > 60; GFR NON-AFRICAN AMERICAN > 60
[2017-10-08] MEDS: Rosuvastatin Calcium 2.5 mg Tab PO SCH (21:13)
--- NOTE | 2017-10-09 13:55 | CP.PCM.PN ---
Subjective - Date & Time of Evaluation Date of Evaluation: 10/09/17 Time of Evaluation: 11:40 - Subjective Subjective: Medical attending note: Patient seen and examined at bedside. Patient denies acute complaints. Patient denies fever, denies chills, denies cough, denies fatigue, denies abdominal pain , denies diarrhea, denies nausea, and denies rhinorrhea nor nasal congestion. Patient does recognize me as his doctor in the hospital however gets the incorrect date but is always knows that Solitario Marie is the president and expresses great disgust every time. Objective - Vital Signs/Intake and Output Vital Signs (last 24 hours): Temp Pulse Resp BP Pulse Ox 97.6 F 77 20 140/82 97 10/09/17 07:51 10/09/17 07:51 10/09/17 07:51 10/09/17 07:51 10/09/17 07:51 Intake and Output: 10/09/17 10/09/17 06:59 18:59 Intake Total 240 Output Total 1 Balance 239 - Medications Medications: Current Medications Aspirin (Ecotrin) 81 mg PO DAILY [facility] Last Admin: 10/09/17 10:42 Dose: 81 mg Donepezil HCl (Aricept) 10 mg PO HS [facility] Last Admin: 10/08/17 21:13 Dose: 10 mg Famotidine (Pepcid) 20 mg PO DAILY [facility] Last Admin: 10/09/17 10:43 Dose: 20 mg Folic Acid (Folic Acid) 1 mg PO DAILY [facility] Last Admin: 10/09/17 10:43 Dose: 1 mg Losartan Potassium (Cozaar) 25 mg PO DAILY [facility] Last Admin: 10/09/17 10:43 Dose: 25 mg Memantine (Namenda) 10 mg PO DAILY [facility] Last Admin: 10/09/17 10:42 Dose: 10 mg Rosuvastatin Calcium (Crestor) 2.5 mg PO HS [facility] Last Admin: 10/08/17 21:13 Dose: 2.5 mg - Labs Labs: 10/08/17 11:29 10/08/17 11:29 PT 11.8 SECONDS (9.7-12.2) 06/21/17 22:04 INR 1.1 06/21/17 22:04 APTT 32 SECONDS (21-34) 06/21/17 22:04 - Constitutional Appears: Non-toxic, No Acute Distress - Head Exam Head Exam: NORMAL INSPECTION - Eye Exam Eye Exam: EOMI - ENT Exam ENT Exam: Mucous Membranes Moist - Respiratory Exam Respiratory Exam: Clear to Ausculation Bilateral, NORMAL BREATHING PATTERN. absent: Rales, Rhonchi, Wheezes - Cardiovascular Exam Cardiovascular Exam: REGULAR RHYTHM, +S1, +S2 - GI/Abdominal Exam GI & Abdominal Exam: Soft, Normal Bowel Sounds. absent: Distended, Firm, Guarding, Rigid, Tenderness, Rebound - Extremities Exam Extremities Exam: absent: Pedal Edema, Tenderness - Back Exam Back Exam: absent: CVA tenderness (L), CVA tenderness (R) - Neurological Exam Neurological Exam: Alert, Awake - Psychiatric Exam Psychiatric exam: Normal Affect, Normal Mood - Skin Skin Exam: Dry, Intact, Normal Color, Warm Assessment and Plan (1) Leukocytosis Status: Acute (2) Abnormal chest x-ray Status: Chronic (3) Glucose intolerance (impaired glucose tolerance) Status: Chronic (4) Dementia Status: Chronic (5) Hypertension Status: Chronic (6) Anemia Status: Chronic (7) Prophylactic measure Status: Acute Attending/Attestation - Attestation I have personally seen and examined this patient.: Yes I have fully participated in the care of the patient.: Yes I have reviewed all pertinent clinical information, including history, physical exam and plan: Yes Notes (Text): Assessment/Plan (1) Leukocytosis Assessment & Plan: * Patient had mild leukocytosis on Sunday. * patient afebrile. Will order blood cultures 2, urine analysis, urine culture and portable chest to rule out infectious etiology given has been in the hospital for quite some time. * Patient is asymptomatic Status: Acute (2) Dementia Assessment & Plan: Family Hx: patient had Alzheimer's Disease at age 71 * Patient was told by a neurologist he has early signs of dementia * Psych consult Dr. Valente --> help appreciated * CT scan of the head is negative * X-ray shows a apical granuloma * Neurology Dr. Manzanares-->help appreciated * Completed EEG 07/07/17 * Discussed patient may complete further workup as outpatient. * negative heavy metal screen * Repeat MRI 07/09: no acute intracranial abnormality. Mild chronic microangiopathic changes and mild age-related global parenchymal volume loss. Please note workup is in prior admission when patient eloped on discharge. * CT scan of the chest is negative and unremarkable * UDS is negative * UA: urine only + for ketones * Brain MRI: Limited motion degraded study. No evidence of acute hemorrhage or infarct. Minor chronic white matter ischemic changes are felt be present. Moderate generalized volume loss. * RPR: nonreactive * HIV: negative * TSH: within normal and repeat within normal * Folate: normal and repeat within normal * B12: normal and repeat within normal * Recommended to patient to follow-up with neurology outpatient and to establish care in the [facility] upon discharge Medications: * Aricept 10mg PO qHS * Namenda 10mg bid * Folic acid 1mg PO daily * Crestor 2.5mg PO HS Status: Chronic (3) Hypertension Assessment & Plan: * Stable with medications * Continue to monitor with vital signs * continue home Cozaar 25mg PO daily Status: Chronic (4) Glucose intolerance (impaired glucose tolerance) Assessment & Plan: * Hgba1c: 5.7 * Will need check in one year for a1c to prevent diabetes Status: Chronic (5) Abnormal chest x-ray Assessment & Plan: * F/u CT chest: unremarkable Status: Chronic (6) Prophylactic measure Assessment & Plan: * GI: Pepcid 20mg PO BID * DVT: SCDs, Patient is ambulatory. * Appointed Combat Systems Officer: Court appointed, Mr. Los Henry, [address] [facility] [address] ; Temporary Guardian is Dangelo Thomas. Patient was scheduled for court 09/20/17 for permanent guardian * Temporary Guardian--> patient assigned to the [place] Office of Public Guardian and case assigned to Lv Hooks * Social work update: Office of Public Guardian MACARIO Hooks ([phone]) on board * Social work has found options however one only accepts Medicaid; referral has been made; will need to follow-up.
[2017-10-09 14:44] LABS: URINE BILIRUBIN NEGATIVE (NEGATIVE); URINE BLOOD NEGATIVE (NEGATIVE); URINE CLARITY Hazy (Clear); URINE COLOR Yellow (YELLOW); URINE GLUCOSE (UA) NORMAL (Normal); URINE LEUKOCYTE ESTERASE NEG Leu/uL (Negative); URINE PROTEIN NEGATIVE (NEGATIVE); URINE UROBILINOGEN NORMAL mg/dL (0.2-1.0)
--- NOTE | 2017-10-09 16:19 | RAD ---
HISTORY: leukocytosis COMPARISON: 08/30/2017 FINDINGS: LUNGS: No active pulmonary disease. PLEURA: No significant pleural effusion identified, no pneumothorax apparent. CARDIOVASCULAR: Normal. OSSEOUS STRUCTURES: Right acromioclavicular joint mild arthrosis. Minimal thoracic spondylosis VISUALIZED UPPER ABDOMEN: Normal. OTHER FINDINGS: None. IMPRESSION: No active disease. Specifically no infiltrate. Mild arthrosis
[2017-10-09] MEDS: Rosuvastatin Calcium 2.5 mg Tab PO SCH (21:31)
--- NOTE | 2017-10-10 06:51 | CP.PCM.PN ---
<Vidya Jean-Baptiste - Last Filed: 10/10/17 10:44> Subjective - Date & Time of Evaluation Date of Evaluation: 10/10/17 Time of Evaluation: 06:51 - Subjective Subjective: Medicine progress note for Dr. Sawyer's service Patient was seen and examined at bedside in no acute distress. Patient reports feeling well. Denies chest pain, abdominal pain, dyspnea, nausea, vomiting, dysuria, diarrhea, constipation, and headaches. Objective - Vital Signs/Intake and Output Vital Signs (last 24 hours): Temp Pulse Resp BP Pulse Ox 98.1 F 81 20 145/81 98 10/09/17 23:55 10/09/17 23:55 10/09/17 23:55 10/09/17 23:55 10/09/17 23:55 Intake and Output: 10/09/17 10/10/17 18:59 06:59 Intake Total 740 680 Output Total 1 Balance 739 680 - Medications Medications: Current Medications Aspirin (Ecotrin) 81 mg PO DAILY [facility] Last Admin: 10/09/17 10:42 Dose: 81 mg Donepezil HCl (Aricept) 10 mg PO [facility] Last Admin: 10/09/17 21:31 Dose: 10 mg Famotidine (Pepcid) 20 mg PO DAILY [facility] Last Admin: 10/09/17 10:43 Dose: 20 mg Folic Acid (Folic Acid) 1 mg PO DAILY [facility] Last Admin: 10/09/17 10:43 Dose: 1 mg Losartan Potassium (Cozaar) 25 mg PO DAILY [facility] Last Admin: 10/09/17 10:43 Dose: 25 mg Memantine (Namenda) 10 mg PO DAILY [facility] Last Admin: 10/09/17 10:42 Dose: 10 mg Rosuvastatin Calcium (Crestor) 2.5 mg PO HS [facility] Last Admin: 10/09/17 21:31 Dose: 2.5 mg - Labs Labs: 10/08/17 11:29 10/08/17 11:29 PT 11.8 SECONDS (9.7-12.2) 06/21/17 22:04 INR 1.1 06/21/17 22:04 APTT 32 SECONDS (21-34) 06/21/17 22:04 - Additional Findings Additional findings: - Constitutional Appears: Non-toxic, No Acute Distress - Head Exam Head Exam: ATRAUMATIC, NORMAL INSPECTION - Eye Exam Eye Exam: EOMI, Normal appearance - ENT Exam ENT Exam: Mucous Membranes Moist - Respiratory Exam Respiratory Exam: Clear to Ausculation Bilateral, NORMAL BREATHING PATTERN. absent: Rales, Rhonchi, Wheezes, Respiratory Distress - Cardiovascular Exam Cardiovascular Exam: REGULAR RHYTHM, +S1, +S2 - GI/Abdominal Exam GI & Abdominal Exam: Soft, Normal Bowel Sounds. absent: Distended, Firm, Tenderness - Extremities Exam Extremities Exam: Normal Inspection. absent: Pedal Edema, Tenderness - Neurological Exam Neurological Exam: Alert, Awake, Normal Gait - Psychiatric Exam Psychiatric exam: Normal Affect, Normal Mood - Skin Skin Exam: Dry, Intact, Normal Color, Warm Assessment and Plan (1) Dementia Status: Chronic (2) HTN (hypertension) Status: Chronic - Assessment and Plan (Free Text) Plan: (1) Dementia Assessment & Plan: Family Hx: patient had Alzheimer's Disease at age 71 * Patient was told by a neurologist he has early signs of dementia * Psych consult Dr. Valente --> help appreciated * CT scan of the head is negative * X-ray (06/18/17) shows a left apical granuloma * Repeat chest xra y(08/30/17): no active disease * Neurology Dr. Manzanares-->help appreciated * Completed EEG 07/07/17 * Discussed patient may complete further workup as outpatient. * negative heavy metal screen * Repeat MRI 07/09: no acute intracranial abnormality. Mild chronic microangiopathic changes and mild age-related global parenchymal volume loss. Please note workup is in prior admission when patient eloped on discharge. * CT scan of the chest is negative and unremarkable * UDS is negative * UA: urine only + for ketones * Brain MRI: Limited motion degraded study. No evidence of acute hemorrhage or infarct. Minor chronic white matter ischemic changes are felt be present. Moderate generalized volume loss. * RPR: nonreactive * HIV: negative * TSH: within normal and repeat within normal * Folate: normal and repeat within normal * B12: normal and repeat within normal * Recommended to patient to follow-up with neurology outpatient and to establish care in the [facility] upon discharge Medications: * Aricept 10mg PO qHS * Namenda 10mg bid * Folic acid 1mg PO daily * Crestor 2.5mg PO HS (2) Leukocytosis Assessment & Plan: WBC 12.3 on 10/08/17 Afebrile, asymptomatic Continue to monitor AM labs Blood cx: f/u results Urine cx: f/u results CXR (10/09/17): no active disease Resolved--> WBC 7.0 on 10/10/17 (3) Hypertension Assessment & Plan: Stable with medications Continue to monitor with vital signs continue home Cozaar 25mg PO daily (4) Glucose intolerance (impaired glucose tolerance) Assessment & Plan: Hgba1c: 5.7 * Will recheck in one year (5) Abnormal chest x-ray Assessment & Plan: CT chest (06/18/17): unremarkable Chest Xray (08/30/17): no active disease CXR (10/09/17): no active disease (6) Prophylactic measure Assessment & Plan: GI: Pepcid 20mg PO Daily DVT: SCDs, Patient is ambulatory; walks Q1-2hrs Disposition: Appointed Yarn Man: Court appointed, Mr. Los Henry, [address] [place] [address] ; Awaiting Office of Public Guardianship Field Sales Associate Lv Hooks [phone] to arrange for permanent placement for patient. <Tamera Sawyer V - Last Filed: 10/10/17 11:25> Objective - Vital Signs/Intake and Output Vital Signs (last 24 hours): Temp Pulse Resp BP Pulse Ox 98.5 F 78 20 148/90 97 10/10/17 07:00 10/10/17 07:00 10/10/17 07:00 10/10/17 07:00 10/10/17 07:00 Intake and Output: 10/10/17 10/10/17 06:59 18:59 Intake Total 680 Balance 680 - Medications Medications: Current Medications Aspirin (Ecotrin) 81 mg PO DAILY [facility] Last Admin: 10/10/17 09:15 Dose: 81 mg Donepezil HCl (Aricept) 10 mg PO HS [facility] Last Admin: 10/09/17 21:31 Dose: 10 mg Famotidine (Pepcid) 20 mg PO DAILY [facility] Last Admin: 10/10/17 09:16 Dose: 20 mg Folic Acid (Folic Acid) 1 mg PO DAILY [facility] Last Admin: 10/10/17 09:16 Dose: 1 mg Losartan Potassium (Cozaar) 25 mg PO DAILY [facility] Last Admin: 10/10/17 09:16 Dose: 25 mg Memantine (Namenda) 10 mg PO DAILY [facility] Last Admin: 10/10/17 09:16 Dose: 10 mg Rosuvastatin Calcium (Crestor) 2.5 mg PO HS [facility] Last Admin: 10/09/17 21:31 Dose: 2.5 mg - Labs Labs: 10/10/17 08:08 10/10/17 08:08 PT 11.8 SECONDS (9.7-12.2) 06/21/17 22:04 INR 1.1 06/21/17 22:04 APTT 32 SECONDS (21-34) 06/21/17 22:04 Assessment and Plan (1) Leukocytosis Status: Acute (2) Abnormal chest x-ray Status: Chronic (3) Glucose intolerance (impaired glucose tolerance) Status: Chronic (4) Dementia Status: Chronic (5) Hypertension Status: Chronic (6) Anemia Status: Chronic (7) Prophylactic measure Status: Acute Attending/Attestation - Attestation I have personally seen and examined this patient.: Yes I have fully participated in the care of the patient.: Yes I have reviewed all pertinent clinical information, including history, physical exam and plan: Yes Notes (Text): Patient seen, examined and case discussed with medical laboratory technician. Patient recognizes me and my resident at bedside. patient is doing well denies acute complaints. Patient seen washing up and walking. Patient is afebrile, and normalized white count. Pending follow-up in regards to blood cultures, UA/urine. Chest xray is negative. Assessment/Plan (1) Leukocytosis Assessment & Plan: * Patient had mild leukocytosis on [place] on 10/08/17 * Patient afebrile. Will order blood cultures 2, urine analysis, urine culture * Patient is asymptomatic * Chest xray (10/09/17): no active disease. Specifically no infiltrate. Mild arthrosis. Status: Acute (2) Dementia Assessment & Plan: Family Hx: patient had Alzheimer's Disease at age 71 * Patient was told by a neurologist he has early signs of dementia * Psych consult Dr. Valente --> help appreciated * CT scan of the head is negative * X-ray shows a apical granuloma * Neurology Dr. Manzanares-->help appreciated * Completed EEG 07/07/17 * Discussed patient may complete further workup as outpatient. * negative heavy metal screen * Repeat MRI 07/09: no acute intracranial abnormality. Mild chronic microangiopathic changes and mild age-related global parenchymal volume loss. Please note workup is in prior admission when patient eloped on discharge. * CT scan of the chest is negative and unremarkable * UDS is negative * UA: urine only + for ketones * Brain MRI: Limited motion degraded study. No evidence of acute hemorrhage or infarct. Minor chronic white matter ischemic changes are felt be present. Moderate generalized volume loss. * RPR: nonreactive * HIV: negative * TSH: within normal and repeat within normal * Folate: normal and repeat within normal * B12: normal and repeat within normal * Recommended to patient to follow-up with neurology outpatient and to establish care in the [facility] upon discharge Medications: * Aricept 10mg PO qHS * Namenda 10mg bid * Folic acid 1mg PO daily * Crestor 2.5mg PO HS Status: Chronic (3) Hypertension Assessment & Plan: * Stable with medications * Continue to monitor with vital signs * continue home Cozaar 25mg PO daily Status: Chronic (4) Glucose intolerance (impaired glucose tolerance) Assessment & Plan: * Hgba1c: 5.7 * Will need check in one year for a1c to prevent diabetes Status: Chronic (5) Abnormal chest x-ray Assessment & Plan: * F/u CT chest: unremarkable Status: Chronic (6) Prophylactic measure Assessment & Plan: * GI: Pepcid 20mg PO BID * DVT: SCDs, Patient is ambulatory. * Appointed Yarn Man: Court appointed, Mr. Los Henry, [address] [facility] [address] ; Temporary Guardian is Dangelo Thomas. Patient was scheduled for court 09/20/17 for permanent guardian * Temporary Guardian--> patient assigned to the [place] Office of Public Guardian and case assigned to Lv Hooks * Social work update: Office of Public Guardian MACARIO Hooks ([phone]) on board * Social work has found options however one only accepts Medicaid; referral has been made; will need to follow-up.
[2017-10-10 08:16] LABS: BASO % 0.4 % (0.0-2.0); EOS # 0.1 K/uL (0.0-0.7); EOS % 0.9 % (0.0-4.0); HEMOGLOBIN 13.8 g/dL (12.0-18.0); LYMPH # 1.5 K/uL (1.0-4.3); LYMPH % 21.9 % (20.0-40.0); MEAN CELL VOLUME 91.6 fL (80.0-94.0); MEAN CORPUSCULAR HEMOGLOBIN 31.6 pg (27.0-31.0); MEAN CORPUSCULAR HGB CONC 34.5 g/dL (33.0-37.0); MEAN PLATELET VOLUME 6.8 fL (7.2-11.7); MONO # 0.8 K/uL (0.0-0.8); MONO % 10.7 % (0.0-10.0); NEUT # 4.7 K/uL (1.8-7.0); NEUT % 66.1 % (50.0-75.0); RBC 4.38 Mil/uL (4.40-5.90); RED CELL DISTRIBUTION WIDTH 12.8 % (11.5-14.5)
[2017-10-10 08:33] LABS: ALB/GLOB RATIO 1.3 (1.0-2.1); ALBUMIN 3.6 g/dL (3.5-5.0); ALT/SGPT 32 U/L (21-72); AST/SGOT 21 U/L (17-59); BLOOD UREA NITROGEN 10 mg/dL (9-20); CALCIUM 8.6 mg/dl (8.6-10.4); GFR AFRICAN-AMERICAN > 60; GFR NON-AFRICAN AMERICAN > 60
[2017-10-10] MEDS: Rosuvastatin Calcium 2.5 mg Tab PO SCH (21:09)
[2017-10-11] MEDS: Rosuvastatin Calcium 2.5 mg Tab PO SCH (21:46)
--- NOTE | 2017-10-12 10:08 | CP.PCM.PN ---
<MarceloHarriett - Last Filed: 10/12/17 11:26> Subjective - Date & Time of Evaluation Date of Evaluation: 10/12/17 Time of Evaluation: 09:50 - Subjective Subjective: Medicine progress note for Dr. Sawyer's service Patient was seen and examined at bedside in no acute distress. Patient is not able to state the month or the day, but is able to name the current president. Patient reports feeling well. Denies chest pain, abdominal pain, dyspnea, nausea , vomiting, dysuria, diarrhea, constipation, and headaches. Objective - Vital Signs/Intake and Output Vital Signs (last 24 hours): Temp Pulse Resp BP Pulse Ox 97.3 F L 86 20 146/80 95 10/12/17 08:00 10/12/17 08:00 10/12/17 08:00 10/12/17 08:00 10/12/17 08:00 Intake and Output: 10/12/17 10/12/17 06:59 18:59 Intake Total 240 Balance 240 - Medications Medications: Current Medications Aspirin (Ecotrin) 81 mg PO DAILY [facility] Last Admin: 10/12/17 09:15 Dose: 81 mg Donepezil HCl (Aricept) 10 mg PO HS [facility] Last Admin: 10/11/17 21:46 Dose: 10 mg Famotidine (Pepcid) 20 mg PO DAILY [facility] Last Admin: 10/12/17 09:15 Dose: 20 mg Folic Acid (Folic Acid) 1 mg PO DAILY [facility] Last Admin: 10/12/17 09:15 Dose: 1 mg Losartan Potassium (Cozaar) 25 mg PO DAILY [facility] Last Admin: 10/12/17 09:15 Dose: 25 mg Memantine (Namenda) 10 mg PO DAILY [facility] Last Admin: 10/12/17 09:15 Dose: 10 mg Rosuvastatin Calcium (Crestor) 2.5 mg PO HS [facility] Last Admin: 10/11/17 21:46 Dose: 2.5 mg - Labs Labs: 10/10/17 08:08 10/10/17 08:08 PT 11.8 SECONDS (9.7-12.2) 06/21/17 22:04 INR 1.1 06/21/17 22:04 APTT 32 SECONDS (21-34) 06/21/17 22:04 - Constitutional Appears: Non-toxic, No Acute Distress - Head Exam Head Exam: ATRAUMATIC, NORMAL INSPECTION, NORMOCEPHALIC - Eye Exam Eye Exam: EOMI, Normal appearance Pupil Exam: NORMAL ACCOMODATION, PERRL - ENT Exam ENT Exam: Mucous Membranes Moist, Normal Exam - Neck Exam Neck Exam: Full ROM Assessment and Plan - Assessment and Plan (Free Text) Assessment: (1) Dementia Assessment & Plan: Family Hx: patient had Alzheimer's Disease at age 71 * Patient was told by a neurologist he has early signs of dementia * Psych consult Dr. Valente --> help appreciated * CT scan of the head is negative * X-ray (06/18/17) shows a left apical granuloma * Repeat chest xra y(08/30/17): no active disease * Neurology Dr. Manzanares-->help appreciated * Completed EEG 07/07/17 * Discussed patient may complete further workup as outpatient. * negative heavy metal screen * Repeat MRI 07/09: no acute intracranial abnormality. Mild chronic microangiopathic changes and mild age-related global parenchymal volume loss. Please note workup is in prior admission when patient eloped on discharge. * CT scan of the chest is negative and unremarkable * UDS is negative * UA: urine only + for ketones * Brain MRI: Limited motion degraded study. No evidence of acute hemorrhage or infarct. Minor chronic white matter ischemic changes are felt be present. Moderate generalized volume loss. * RPR: nonreactive * HIV: negative * TSH: within normal and repeat within normal * Folate: normal and repeat within normal * B12: normal and repeat within normal * Recommended to patient to follow-up with neurology outpatient and to establish care in the [facility] upon discharge Medications: * Aricept 10mg PO qHS * Namenda 10mg bid * Folic acid 1mg PO daily * Crestor 2.5mg PO HS (2) Leukocytosis Assessment & Plan: WBC 12.3 on 10/08/17 Afebrile, asymptomatic Continue to monitor AM labs Blood cx: f/u results Urine cx: f/u results CXR (10/09/17): no active disease Resolved--> WBC 7.0 on 10/10/17 (3) Hypertension Assessment & Plan: Stable with medications Continue to monitor with vital signs continue home Cozaar 25mg PO daily (4) Glucose intolerance (impaired glucose tolerance) Assessment & Plan: Hgba1c: 5.7 * Will recheck in one year (5) Abnormal chest x-ray Assessment & Plan: CT chest (06/18/17): unremarkable Chest Xray (08/30/17): no active disease CXR (10/09/17): no active disease (6) Prophylactic measure Assessment & Plan: GI: Pepcid 20mg PO Daily DVT: SCDs, Patient is ambulatory; walks Q1-2hrs Disposition: Appointed Ski Binding Fitter And Repairer: Court appointed, Mr. Los Henry, [address] [facility] [address] ; Awaiting Office of Public Guardianship Neck Band Operator Lv Hooks [phone] to arrange for permanent placement for patient. no new changes Harriett Robertson DO PGY1 <Tamera Sawyer V - Last Filed: 10/12/17 15:22> Objective - Vital Signs/Intake and Output Vital Signs (last 24 hours): Temp Pulse Resp BP Pulse Ox 97.3 F L 86 20 146/80 95 10/12/17 08:00 10/12/17 08:00 10/12/17 08:00 10/12/17 08:00 10/12/17 08:00 Intake and Output: 10/12/17 10/12/17 06:59 18:59 Intake Total 240 Balance 240 - Medications Medications: Current Medications Aspirin (Ecotrin) 81 mg PO DAILY [facility] Last Admin: 10/12/17 09:15 Dose: 81 mg Donepezil HCl (Aricept) 10 mg PO HS [facility] Last Admin: 10/11/17 21:46 Dose: 10 mg Famotidine (Pepcid) 20 mg PO DAILY [facility] Last Admin: 10/12/17 09:15 Dose: 20 mg Folic Acid (Folic Acid) 1 mg PO DAILY [facility] Last Admin: 10/12/17 09:15 Dose: 1 mg Losartan Potassium (Cozaar) 25 mg PO DAILY [facility] Last Admin: 10/12/17 09:15 Dose: 25 mg Memantine (Namenda) 10 mg PO DAILY [facility] Last Admin: 10/12/17 09:15 Dose: 10 mg Rosuvastatin Calcium (Crestor) 2.5 mg PO HS [facility] Last Admin: 10/11/17 21:46 Dose: 2.5 mg - Labs Labs: 10/12/17 12:15 10/12/17 12:15 PT 11.8 SECONDS (9.7-12.2) 06/21/17 22:04 INR 1.1 06/21/17 22:04 APTT 32 SECONDS (21-34) 06/21/17 22:04 Assessment and Plan (1) Leukocytosis Status: Acute (2) Abnormal chest x-ray Status: Chronic (3) Glucose intolerance (impaired glucose tolerance) Status: Chronic (4) Dementia Status: Chronic (5) Hypertension Status: Chronic (6) Anemia Status: Chronic (7) Prophylactic measure Status: Acute Attending/Attestation - Attestation I have personally seen and examined this patient.: Yes I have fully participated in the care of the patient.: Yes I have reviewed all pertinent clinical information, including history, physical exam and plan: Yes Notes (Text): Patient seen, examined and case discussed with biomedical electronics technician. Patient recognizes me and my resident at bedside. patient is doing well denies acute complaints. Patient is afebrile, and normalized white count. Blood cultures remain negative. Assessment/Plan (1) Leukocytosis Assessment & Plan: * Patient had mild leukocytosis on Sunday. Normalized * patient afebrile. * Blood cultures (10/09/17): no growth after 48 hours X2 * Urine culture (10/09/17): no growth * Chest Xray (10/09/17): no active disease. Specifically no infiltrate. Mild arthrosis * Patient is asymptomatic Status: Acute (2) Dementia Assessment & Plan: Family Hx: patient had Alzheimer's Disease at age 71 * Patient was told by a neurologist he has early signs of dementia * Psych consult Dr. Valente --> help appreciated * CT scan of the head is negative * X-ray shows a apical granuloma * Neurology Dr. Manzanares-->help appreciated * Completed EEG 07/07/17 * Discussed patient may complete further workup as outpatient. * negative heavy metal screen * Repeat MRI 07/09: no acute intracranial abnormality. Mild chronic microangiopathic changes and mild age-related global parenchymal volume loss. Please note workup is in prior admission when patient eloped on discharge. * CT scan of the chest is negative and unremarkable * UDS is negative * UA: urine only + for ketones * Brain MRI: Limited motion degraded study. No evidence of acute hemorrhage or infarct. Minor chronic white matter ischemic changes are felt be present. Moderate generalized volume loss. * RPR: nonreactive * HIV: negative * TSH: within normal and repeat within normal * Folate: normal and repeat within normal * B12: normal and repeat within normal * Recommended to patient to follow-up with neurology outpatient and to establish care in the [facility] upon discharge Medications: * Aricept 10mg PO qHS * Namenda 10mg bid * Folic acid 1mg PO daily * Crestor 2.5mg PO HS Status: Chronic (3) Hypertension Assessment & Plan: * Stable with medications * Continue to monitor with vital signs * continue home Cozaar 25mg PO daily Status: Chronic (4) Glucose intolerance (impaired glucose tolerance) Assessment & Plan: * Hgba1c: 5.7 * Will need check in one year for a1c to prevent diabetes Status: Chronic (5) Abnormal chest x-ray Assessment & Plan: * F/u CT chest: unremarkable Status: Chronic (6) Prophylactic measure Assessment & Plan: * GI: Pepcid 20mg PO BID * DVT: SCDs, Patient is ambulatory. * Appointed Ski Binding Fitter And Repairer: Court appointed, Mr. Los Henry, [address] [place] [address] ; Temporary Guardian is Dangelo Thomas. Patient was scheduled for court 09/20/17 for permanent guardian * Temporary Guardian--> patient assigned to the [place] Office of Public Guardian and case assigned to Lv Hooks * Social work update: Office of Public Guardian MACARIO Hooks ([phone]) on board * Latest (10/10/17): [facility] with [facility]--->Follow-up Social work Francine Sosa and CURT Chung for further updates * patient preference for intermodal owner operator truck driver care.
[2017-10-12 12:30] LABS: BASO % 0.3 % (0.0-2.0); EOS % 0.7 % (0.0-4.0); HEMOGLOBIN 14.5 g/dL (12.0-18.0); LYMPH # 1.6 K/uL (1.0-4.3); LYMPH % 25.7 % (20.0-40.0); MEAN CELL VOLUME 92.5 fL (80.0-94.0); MEAN CORPUSCULAR HEMOGLOBIN 31.3 pg (27.0-31.0); MEAN CORPUSCULAR HGB CONC 33.8 g/dL (33.0-37.0); MEAN PLATELET VOLUME 6.8 fL (7.2-11.7); MONO # 0.7 K/uL (0.0-0.8); MONO % 10.6 % (0.0-10.0); NEUT # 3.9 K/uL (1.8-7.0); NEUT % 62.7 % (50.0-75.0); RBC 4.64 Mil/uL (4.40-5.90); RED CELL DISTRIBUTION WIDTH 13.2 % (11.5-14.5); WHITE BLOOD COUNT 6.2 K/uL (4.8-10.8)
[2017-10-12 12:44] LABS: ALB/GLOB RATIO 1.3 (1.0-2.1); ALBUMIN 4.1 g/dL (3.5-5.0); ALT/SGPT 35 U/L (21-72); AST/SGOT 25 U/L (17-59); BLOOD UREA NITROGEN 12 mg/dL (9-20); CALCIUM 8.8 mg/dl (8.6-10.4); GFR AFRICAN-AMERICAN > 60; GFR NON-AFRICAN AMERICAN > 60
[2017-10-12] MEDS: Rosuvastatin Calcium 2.5 mg Tab PO SCH (21:45)
--- NOTE | 2017-10-13 10:29 | CP.PCM.PN ---
Subjective - Date & Time of Evaluation Date of Evaluation: 10/13/17 Time of Evaluation: 10:00 - Subjective Subjective: Medical Attending Note: Patient seen and examined at bedside. Patient denies acute complaints. Patient had shower this morning. Patient is ambulating. Objective - Vital Signs/Intake and Output Vital Signs (last 24 hours): Temp Pulse Resp BP Pulse Ox 97.6 F 76 20 129/72 99 10/13/17 08:08 10/13/17 08:08 10/13/17 08:08 10/13/17 08:08 10/13/17 08:08 - Medications Medications: Current Medications Aspirin (Ecotrin) 81 mg PO DAILY [facility] Last Admin: 10/13/17 09:35 Dose: 81 mg Famotidine (Pepcid) 20 mg PO DAILY [facility] Last Admin: 10/13/17 09:35 Dose: 20 mg Folic Acid (Folic Acid) 1 mg PO DAILY [facility] Last Admin: 10/13/17 09:35 Dose: 1 mg Losartan Potassium (Cozaar) 25 mg PO DAILY [facility] Last Admin: 10/13/17 09:35 Dose: 25 mg Memantine (Namenda) 10 mg PO DAILY [facility] Last Admin: 10/13/17 09:35 Dose: 10 mg - Labs Labs: 10/12/17 12:15 10/12/17 12:15 PT 11.8 SECONDS (9.7-12.2) 06/21/17 22:04 INR 1.1 06/21/17 22:04 APTT 32 SECONDS (21-34) 06/21/17 22:04 - Constitutional Appears: Non-toxic, No Acute Distress - Head Exam Head Exam: NORMAL INSPECTION - ENT Exam ENT Exam: Mucous Membranes Moist - Respiratory Exam Respiratory Exam: Clear to Ausculation Bilateral, NORMAL BREATHING PATTERN. absent: Rales, Rhonchi, Wheezes - Cardiovascular Exam Cardiovascular Exam: REGULAR RHYTHM, +S1, +S2 - GI/Abdominal Exam GI & Abdominal Exam: Soft, Normal Bowel Sounds. absent: Distended, Firm, Guarding, Rigid, Tenderness, Rebound - Extremities Exam Extremities Exam: absent: Pedal Edema, Tenderness - Neurological Exam Neurological Exam: Alert, Awake - Psychiatric Exam Psychiatric exam: Normal Affect, Normal Mood - Skin Skin Exam: Dry, Intact, Normal Color, Warm Assessment and Plan (1) Leukocytosis Status: Acute (2) Abnormal chest x-ray Status: Chronic (3) Glucose intolerance (impaired glucose tolerance) Status: Chronic (4) Dementia Status: Chronic (5) Hypertension Status: Chronic (6) Anemia Status: Chronic (7) Prophylactic measure Status: Acute Attending/Attestation - Attestation I have personally seen and examined this patient.: Yes I have fully participated in the care of the patient.: Yes I have reviewed all pertinent clinical information, including history, physical exam and plan: Yes Notes (Text): patient is doing well denies acute complaints. Patient is afebrile. F/u blood culture results. F/u case management and social work in regards to placement. Assessment/Plan (1) Leukocytosis Assessment & Plan: * Patient had mild leukocytosis on Sunday. Normalized * patient afebrile. * Blood cultures (10/09/17): no growth after 48 hours X2-->need to be updated * Urine culture (10/09/17): no growth * Chest Xray (10/09/17): no active disease. Specifically no infiltrate. Mild arthrosis * Patient is asymptomatic Status: Acute (2) Dementia Assessment & Plan: Family Hx: patient had Alzheimer's Disease at age 71 * Patient was told by a neurologist he has early signs of dementia * Psych consult Dr. Valente --> help appreciated * CT scan of the head is negative * X-ray shows a apical granuloma * Neurology Dr. Manzanares-->help appreciated * Completed EEG 07/07/17 * Discussed patient may complete further workup as outpatient. * negative heavy metal screen * Repeat MRI 07/09: no acute intracranial abnormality. Mild chronic microangiopathic changes and mild age-related global parenchymal volume loss. Please note workup is in prior admission when patient eloped on discharge. * CT scan of the chest is negative and unremarkable * UDS is negative * UA: urine only + for ketones * Brain MRI: Limited motion degraded study. No evidence of acute hemorrhage or infarct. Minor chronic white matter ischemic changes are felt be present. Moderate generalized volume loss. * RPR: nonreactive * HIV: negative * TSH: within normal and repeat within normal * Folate: normal and repeat within normal * B12: normal and repeat within normal * Recommended to patient to follow-up with neurology outpatient and to establish care in the [facility] upon discharge Medications: * Aricept 10mg PO qHS * Namenda 10mg bid * Folic acid 1mg PO daily * Crestor 2.5mg PO HS Status: Chronic (3) Hypertension Assessment & Plan: * Stable with medications * Continue to monitor with vital signs * continue home Cozaar 25mg PO daily Status: Chronic (4) Glucose intolerance (impaired glucose tolerance) Assessment & Plan: * Hgba1c: 5.7 * Will need check in one year for a1c to prevent diabetes Status: Chronic (5) Abnormal chest x-ray Assessment & Plan: * F/u CT chest: unremarkable Status: Chronic (6) Prophylactic measure Assessment & Plan: * GI: Pepcid 20mg PO BID * DVT: SCDs, Patient is ambulatory. * Appointed Kicking Machine Operator: Court appointed, Mr. Los Henry, [address] [place] [id number] ; Temporary Guardian is Dangelo Thomas. Patient was scheduled for court 09/20/17 for permanent guardian * Temporary Guardian--> patient assigned to the [place] Office of Public Guardian and case assigned to Lv Hooks * Social work update: Office of Public Guardian MACARIO Hooks ([phone]) on board * Latest (10/10/17): [facility] Public Guardian will work with the facility--->Follow-up Social work Francine Sosa and CURT Chung for further updates * patient preference for terminal block assembler care.
--- NOTE | 2017-10-14 09:12 | CP.PCM.PN ---
Subjective - Date & Time of Evaluation Date of Evaluation: 10/14/17 Time of Evaluation: 08:40 - Subjective Subjective: Medical Attending Note: Patient seen and examined at bedside. Patient denies acute complaints. Patient is not oriented to date, but recognizes the President is Trump and aware I am his doctor taking care of him in the hospital. Objective - Vital Signs/Intake and Output Vital Signs (last 24 hours): Temp Pulse Resp BP Pulse Ox 97.4 F L 67 18 110/66 95 10/13/17 23:55 10/13/17 23:55 10/13/17 23:55 10/13/17 23:55 10/13/17 23:55 Intake and Output: 10/14/17 10/14/17 06:59 18:59 Intake Total 800 Balance 800 - Medications Medications: Current Medications Aspirin (Ecotrin) 81 mg PO DAILY [facility] Last Admin: 10/13/17 09:35 Dose: 81 mg Donepezil HCl (Aricept) 10 mg PO [facility] Famotidine (Pepcid) 20 mg PO DAILY [facility] Last Admin: 10/13/17 09:35 Dose: 20 mg Folic Acid (Folic Acid) 1 mg PO DAILY [facility] Last Admin: 10/13/17 09:35 Dose: 1 mg Losartan Potassium (Cozaar) 25 mg PO DAILY [facility] Last Admin: 10/13/17 09:35 Dose: 25 mg Memantine (Namenda) 10 mg PO DAILY [facility] Last Admin: 10/13/17 09:35 Dose: 10 mg Rosuvastatin Calcium (Crestor) 2.5 mg PO HS [facility] - Labs Labs: 10/12/17 12:15 10/12/17 12:15 PT 11.8 SECONDS (9.7-12.2) 06/21/17 22:04 INR 1.1 06/21/17 22:04 APTT 32 SECONDS (21-34) 06/21/17 22:04 - Constitutional Appears: Non-toxic, No Acute Distress - Head Exam Head Exam: NORMAL INSPECTION - Eye Exam Eye Exam: EOMI - ENT Exam ENT Exam: Mucous Membranes Moist - Respiratory Exam Respiratory Exam: Clear to Ausculation Bilateral, NORMAL BREATHING PATTERN. absent: Rales, Rhonchi, Wheezes - Cardiovascular Exam Cardiovascular Exam: REGULAR RHYTHM, +S1, +S2 - GI/Abdominal Exam GI & Abdominal Exam: Soft, Normal Bowel Sounds. absent: Distended, Firm, Guarding, Rigid, Tenderness, Rebound - Extremities Exam Extremities Exam: absent: Pedal Edema, Tenderness - Neurological Exam Neurological Exam: Alert, Awake, Normal Gait Neuro motor strength exam: Left Upper Extremity: 5, Right Upper Extremity: 5, Left Lower Extremity: 5, Right Lower Extremity: 5 - Psychiatric Exam Psychiatric exam: Normal Affect, Normal Mood - Skin Skin Exam: Dry, Intact, Normal Color, Warm Assessment and Plan (1) Leukocytosis Status: Acute (2) Abnormal chest x-ray Status: Chronic (3) Glucose intolerance (impaired glucose tolerance) Status: Chronic (4) Dementia Status: Chronic (5) Hypertension Status: Chronic (6) Anemia Status: Chronic (7) Prophylactic measure Status: Acute Attending/Attestation - Attestation I have personally seen and examined this patient.: Yes I have fully participated in the care of the patient.: Yes I have reviewed all pertinent clinical information, including history, physical exam and plan: Yes Notes (Text): Patient is doing well denies acute complaints. Patient is afebrile. F/u blood culture results. F/u case management and social work in regards to placement. Social workers Francine and Jenn will be taking over from Najma. Assessment/Plan (1) Leukocytosis Assessment & Plan: * Patient had mild leukocytosis on Sunday. Normalized * patient afebrile. * Blood cultures (10/09/17): no growth after 48 hours X2-->need to be updated * Urine culture (10/09/17): no growth * Chest Xray (10/09/17): no active disease. Specifically no infiltrate. Mild arthrosis * Patient is asymptomatic Status: Acute (2) Dementia Assessment & Plan: Family Hx: patient had Alzheimer's Disease at age 71 * Patient was told by a neurologist he has early signs of dementia * Psych consult Dr. Valente --> help appreciated * CT scan of the head is negative * X-ray shows a apical granuloma * Neurology Dr. Manzanares-->help appreciated * Completed EEG 07/07/17 * Discussed patient may complete further workup as outpatient. * negative heavy metal screen * Repeat MRI 07/09: no acute intracranial abnormality. Mild chronic microangiopathic changes and mild age-related global parenchymal volume loss. Please note workup is in prior admission when patient eloped on discharge. * CT scan of the chest is negative and unremarkable * UDS is negative * UA: urine only + for ketones * Brain MRI: Limited motion degraded study. No evidence of acute hemorrhage or infarct. Minor chronic white matter ischemic changes are felt be present. Moderate generalized volume loss. * RPR: nonreactive * HIV: negative * TSH: within normal and repeat within normal * Folate: normal and repeat within normal * B12: normal and repeat within normal * Recommended to patient to follow-up with neurology outpatient and to establish care in the [facility] upon discharge Medications: * Aricept 10mg PO qHS * Namenda 10mg bid * Folic acid 1mg PO daily * Crestor 2.5mg PO HS Status: Chronic (3) Hypertension Assessment & Plan: * Stable with medications * Continue to monitor with vital signs * continue home Cozaar 25mg PO daily Status: Chronic (4) Glucose intolerance (impaired glucose tolerance) Assessment & Plan: * Hgba1c: 5.7 * Will need check in one year for a1c to prevent diabetes Status: Chronic (5) Abnormal chest x-ray Assessment & Plan: * F/u CT chest: unremarkable Status: Chronic (6) Prophylactic measure Assessment & Plan: * GI: Pepcid 20mg PO BID * DVT: SCDs, Patient is ambulatory. * Appointed Laboratory Chief: Court appointed, Mr. Los Henry, [address] [place] [address] ; Temporary Guardian is Dangelo Thomas. Patient was scheduled for court 09/20/17 for permanent guardian * Temporary Guardian--> patient assigned to the [place] [facility] Public [employer] and case assigned to Lv Hooks * Social work update: Office of Public Guardian MACARIO Hooks ([phone]) on board * Latest (10/10/17): Referral to Assisted living [facility] and Public Guardian will work with the facility--->Follow-up Social work Francine Sosa and CURT Chung for further updates * patient preference for snf care.
[2017-10-14] MEDS: Rosuvastatin Calcium 2.5 mg Tab PO SCH (21:12)
[2017-10-15 06:47] LABS: BASO % 0.4 % (0.0-2.0); EOS # 0.1 K/uL (0.0-0.7); HEMOGLOBIN 13.9 g/dL (12.0-18.0); LYMPH # 1.6 K/uL (1.0-4.3); LYMPH % 31.3 % (20.0-40.0); MEAN CORPUSCULAR HEMOGLOBIN 31.1 pg (27.0-31.0); MEAN CORPUSCULAR HGB CONC 33.8 g/dL (33.0-37.0); MEAN PLATELET VOLUME 6.9 fL (7.2-11.7); MONO # 0.6 K/uL (0.0-0.8); MONO % 12.5 % (0.0-10.0); NEUT # 2.7 K/uL (1.8-7.0); NEUT % 53.8 % (50.0-75.0); RBC 4.45 Mil/uL (4.40-5.90); RED CELL DISTRIBUTION WIDTH 13.2 % (11.5-14.5); WHITE BLOOD COUNT 5.1 K/uL (4.8-10.8)
--- NOTE | 2017-10-15 07:07 | CP.PCM.PN ---
<Vidya Jean-Baptiste - Last Filed: 10/15/17 15:59> Subjective - Date & Time of Evaluation Date of Evaluation: 10/15/17 Time of Evaluation: 07:07 - Subjective Subjective: Medicine progress note for Dr. Damon's service Patient was seen and examined at bedside in no acute distress. Patient is sitting comfortably on side of bed. Patient reports feeling well and has no other complaints. Denies chest pain, abdominal pain, dyspnea, nausea, vomiting, dysuria, diarrhea, constipation, and headaches. Objective - Vital Signs/Intake and Output Vital Signs (last 24 hours): Temp Pulse Resp BP Pulse Ox 98.1 F 83 20 125/81 97 10/14/17 23:07 10/14/17 23:07 10/14/17 23:07 10/14/17 23:07 10/14/17 23:07 Intake and Output: 10/15/17 10/15/17 06:59 18:59 Intake Total 800 Balance 800 - Medications Medications: Current Medications Aspirin (Ecotrin) 81 mg PO DAILY [facility] Last Admin: 10/14/17 09:49 Dose: 81 mg Donepezil HCl (Aricept) 10 mg PO HS [facility] Last Admin: 10/14/17 21:12 Dose: 10 mg Famotidine (Pepcid) 20 mg PO DAILY [facility] Last Admin: 10/14/17 09:50 Dose: 20 mg Folic Acid (Folic Acid) 1 mg PO DAILY [facility] Last Admin: 10/14/17 09:50 Dose: 1 mg Losartan Potassium (Cozaar) 25 mg PO DAILY [facility] Last Admin: 10/14/17 09:50 Dose: 25 mg Memantine (Namenda) 10 mg PO DAILY [facility] Last Admin: 10/14/17 09:49 Dose: 10 mg Rosuvastatin Calcium (Crestor) 2.5 mg PO HS [facility] Last Admin: 10/14/17 21:12 Dose: 2.5 mg - Labs Labs: 10/15/17 06:39 10/12/17 12:15 PT 11.8 SECONDS (9.7-12.2) 06/21/17 22:04 INR 1.1 06/21/17 22:04 APTT 32 SECONDS (21-34) 06/21/17 22:04 - Additional Findings Additional findings: - Constitutional Appears: Non-toxic, No Acute Distress - Head Exam Head Exam: ATRAUMATIC, NORMAL INSPECTION - Eye Exam Eye Exam: EOMI, Normal appearance - ENT Exam ENT Exam: Mucous Membranes Moist - Respiratory Exam Respiratory Exam: Clear to Ausculation Bilateral, NORMAL BREATHING PATTERN. absent: Rales, Rhonchi, Wheezes, Respiratory Distress - Cardiovascular Exam Cardiovascular Exam: REGULAR RHYTHM, +S1, +S2 - GI/Abdominal Exam GI & Abdominal Exam: Soft, Normal Bowel Sounds. absent: Distended, Firm, Tenderness - Extremities Exam Extremities Exam: Normal Inspection. absent: Pedal Edema, Tenderness - Neurological Exam Neurological Exam: Alert, Awake, Normal Gait - Psychiatric Exam Psychiatric exam: Normal Affect, Normal Mood - Skin Skin Exam: Dry, Intact, Normal Color, Warm Assessment and Plan (1) Dementia Status: Chronic (2) HTN (hypertension) Status: Chronic - Assessment and Plan (Free Text) Plan: (1) Dementia Assessment & Plan: Family Hx: patient had Alzheimer's Disease at age 71 * Patient was told by a neurologist he has early signs of dementia * Psych consult Dr. Valente --> help appreciated * CT scan of the head is negative * X-ray (06/18/17) shows a left apical granuloma * Repeat chest xra y(08/30/17): no active disease * Neurology Dr. Manzanares-->help appreciated * Completed EEG 07/07/17 * Discussed patient may complete further workup as outpatient. * negative heavy metal screen * Repeat MRI 07/09: no acute intracranial abnormality. Mild chronic microangiopathic changes and mild age-related global parenchymal volume loss. Please note workup is in prior admission when patient eloped on discharge. * CT scan of the chest is negative and unremarkable * UDS is negative * UA: urine only + for ketones * Brain MRI: Limited motion degraded study. No evidence of acute hemorrhage or infarct. Minor chronic white matter ischemic changes are felt be present. Moderate generalized volume loss. * RPR: nonreactive * HIV: negative * TSH: within normal and repeat within normal * Folate: normal and repeat within normal * B12: normal and repeat within normal * Recommended to patient to follow-up with neurology outpatient and to establish care in the [facility] upon discharge Medications: * Aricept 10mg PO qHS * Namenda 10mg bid * Folic acid 1mg PO daily * Crestor 2.5mg PO HS (2) Leukocytosis Assessment & Plan: resolved WBC 12.3 on 10/08/17 Afebrile, asymptomatic Continue to monitor AM labs Blood cx: negative Urine cx: negative CXR (10/09/17): no active disease Resolved--> WBC 7.0 on 10/10/17 (3) Hypertension Assessment & Plan: Stable with medications Continue to monitor with vital signs continue home Cozaar 25mg PO daily (4) Glucose intolerance (impaired glucose tolerance) Assessment & Plan: Hgba1c: 5.7 * Will recheck in one year (5) Abnormal chest x-ray Assessment & Plan: CT chest (06/18/17): unremarkable Chest Xray (08/30/17): no active disease CXR (10/09/17): no active disease (6) Prophylactic measure Assessment & Plan: GI: Pepcid 20mg PO Daily DVT: SCDs, Patient is ambulatory; walks Q1-2hrs Disposition: Appointed Boat Cleaner: Court appointed, Mr. Los Henry, [address] [place] [address] ; Awaiting [facility] Aides And Assistants Teacher Lv Hooks [phone] to arrange for permanent placement for patient. <Gary Damon - Last Filed: 10/15/17 18:14> Objective - Vital Signs/Intake and Output Vital Signs (last 24 hours): Temp Pulse Resp BP Pulse Ox 97.7 F 80 20 128/91 H 98 10/15/17 16:00 10/15/17 16:00 10/15/17 16:00 10/15/17 16:00 10/15/17 16:00 Intake and Output: 10/15/17 10/15/17 06:59 18:59 Intake Total 800 500 Balance 800 500 - Medications Medications: Current Medications Aspirin (Ecotrin) 81 mg PO DAILY [facility] Last Admin: 10/15/17 10:38 Dose: 81 mg Donepezil HCl (Aricept) 10 mg PO HS [facility] Last Admin: 10/14/17 21:12 Dose: 10 mg Famotidine (Pepcid) 20 mg PO DAILY [facility] Last Admin: 10/15/17 10:38 Dose: 20 mg Folic Acid (Folic Acid) 1 mg PO DAILY [facility] Last Admin: 10/15/17 10:38 Dose: 1 mg Losartan Potassium (Cozaar) 25 mg PO DAILY [facility] Last Admin: 10/15/17 10:38 Dose: 25 mg Memantine (Namenda) 10 mg PO DAILY [facility] Last Admin: 10/15/17 10:38 Dose: 10 mg Rosuvastatin Calcium (Crestor) 2.5 mg PO HS [facility] Last Admin: 10/14/17 21:12 Dose: 2.5 mg - Labs Labs: 10/15/17 06:39 10/15/17 06:39 PT 11.8 SECONDS (9.7-12.2) 06/21/17 22:04 INR 1.1 06/21/17 22:04 APTT 32 SECONDS (21-34) 06/21/17 22:04 Attending/Attestation - Attestation I have personally seen and examined this patient.: Yes I have fully participated in the care of the patient.: Yes I have reviewed all pertinent clinical information, including history, physical exam and plan: Yes Notes (Text): 10/15/17 18:13 Patient was seen and examined at 10:40 AM 10/15/17 358 A Exam, assessment and plan were gone over with the resident. Awaiting placement as mentioned above. Gary Damon D.O.
[2017-10-15 07:48] LABS: ALBUMIN 3.4 g/dL (3.5-5.0); BLOOD UREA NITROGEN 8 mg/dL (9-20); CALCIUM 8.4 mg/dl (8.6-10.4); GFR AFRICAN-AMERICAN > 60; GFR NON-AFRICAN AMERICAN > 60
[2017-10-15 07:49] LABS: ALB/GLOB RATIO 1.2 (1.0-2.1); ALT/SGPT 34 U/L (21-72); AST/SGOT 24 U/L (17-59)
[2017-10-15] MEDS: Rosuvastatin Calcium 2.5 mg Tab PO SCH (21:26)
--- NOTE | 2017-10-16 19:37 | CP.PCM.PN ---
Subjective - Date & Time of Evaluation Date of Evaluation: 10/16/17 Time of Evaluation: 14:30 - Subjective Subjective: Patient was seen and examined at 2:30 PM 10/16/17 358 A Upon FULL ROS NO dysphagia/odynopahgia NO soreness in throat NO cough NO sinus/nasal congestion NO fever/chills NO muscle aches/pains NO joint pain NO chest pain/palpations NO SOB NO abdominal pain NO n/v/d/c NO burning pain with urination NO CHAMPION NO lightheadedness/dizziness NO paresthesias Exam: General: AAOX3, NAD HEENT: NCA, EOMI, PERRLA, NO cervical/supraclavicular/submandibular lymphadenopathy, NO pharyngeal erythema/exudate, Nasal Turbinates are nonerythematous/nonedematous, Oral Mucosa is moist Cardio: NS1 and NS2, NO M/R/G Resp: CTA B/L, NO R/R/W GI: BSx4, Soft, NT, NO HSM, NO guarding/rebound tenderness Ext: Pulses are strong and equal, Capillary Refill is 2 seconds, NO edema Neuro: CN II through XII are grossly intact Assessment and Plan: 1). Dimentia: Aricept, Namenda, Folic Acid, Crestor, ASA 2). Anemia: resolved 3). Hypokalemia: resolved 4). Abnormal Chest X Ray: CT Chest was unremarkable 5). Impaired Fasting Glucose: HgBA1C was 5.7 6). HTN: Cozaar 7). Prophylaxis: Pepcid, SCD, Patient is continuing to walk every 1 to 2 hours on the medical floor (this has been witnessed by me) Awaiting placement. Gary Damon D.O. Objective - Vital Signs/Intake and Output Vital Signs (last 24 hours): Temp Pulse Resp BP Pulse Ox 98.6 F 68 20 160/80 H 98 10/16/17 16:00 10/16/17 16:00 10/16/17 16:00 10/16/17 16:00 10/16/17 16:00 - Medications Medications: Current Medications Aspirin (Ecotrin) 81 mg PO DAILY [facility] Last Admin: 10/16/17 09:38 Dose: 81 mg Donepezil HCl (Aricept) 10 mg PO HS [facility] Last Admin: 10/15/17 21:26 Dose: 10 mg Famotidine (Pepcid) 20 mg PO DAILY [facility] Last Admin: 10/16/17 09:39 Dose: 20 mg Folic Acid (Folic Acid) 1 mg PO DAILY [facility] Last Admin: 10/16/17 09:39 Dose: 1 mg Losartan Potassium (Cozaar) 25 mg PO DAILY [facility] Last Admin: 10/16/17 09:39 Dose: 25 mg Memantine (Namenda) 10 mg PO DAILY [facility] Last Admin: 10/16/17 09:39 Dose: 10 mg Rosuvastatin Calcium (Crestor) 2.5 mg PO HS [facility] Last Admin: 10/15/17 21:26 Dose: 2.5 mg - Labs Labs: 10/15/17 06:39 10/15/17 06:39 PT 11.8 SECONDS (9.7-12.2) 06/21/17 22:04 INR 1.1 06/21/17 22:04 APTT 32 SECONDS (21-34) 06/21/17 22:04
[2017-10-16] MEDS: Rosuvastatin Calcium 2.5 mg Tab PO SCH (21:46)
--- NOTE | 2017-10-17 07:32 | CP.PCM.PN ---
<Vidya Jean-Baptiste - Last Filed: 10/17/17 12:48> Subjective - Date & Time of Evaluation Date of Evaluation: 10/17/17 Time of Evaluation: 07:32 - Subjective Subjective: Medicine progress note for Dr. Damon's service Patient was seen and examined at bedside in no acute distress. Patient reports feeling well and has no other complaints. Denies chest pain, abdominal pain, dyspnea, nausea, vomiting, dysuria, diarrhea, constipation, and headaches. Objective - Vital Signs/Intake and Output Vital Signs (last 24 hours): Temp Pulse Resp BP Pulse Ox 98.2 F 75 20 118/75 97 10/16/17 23:11 10/16/17 23:11 10/16/17 23:11 10/16/17 23:11 10/16/17 23:11 Intake and Output: 10/17/17 10/17/17 06:59 18:59 Intake Total 800 Balance 800 - Medications Medications: Current Medications Aspirin (Ecotrin) 81 mg PO DAILY [facility] Last Admin: 10/16/17 09:38 Dose: 81 mg Donepezil HCl (Aricept) [address] [facility] Last Admin: 10/16/17 21:45 Dose: 10 mg Famotidine (Pepcid) 20 mg PO DAILY [facility] Last Admin: 10/16/17 09:39 Dose: 20 mg Folic Acid (Folic Acid) 1 mg PO DAILY [facility] Last Admin: 10/16/17 09:39 Dose: 1 mg Losartan Potassium (Cozaar) 25 mg PO DAILY [facility] Last Admin: 10/16/17 09:39 Dose: 25 mg Memantine (Namenda) 10 mg PO DAILY [facility] Last Admin: 10/16/17 09:39 Dose: 10 mg Rosuvastatin Calcium (Crestor) 2.[address] [facility] Last Admin: 10/16/17 21:46 Dose: 2.5 mg - Labs Labs: 10/15/17 06:39 10/15/17 06:39 PT 11.8 SECONDS (9.7-12.2) 06/21/17 22:04 INR 1.1 06/21/17 22:04 APTT 32 SECONDS (21-34) 06/21/17 22:04 - Additional Findings Additional findings: - Constitutional Appears: Non-toxic, No Acute Distress - Head Exam Head Exam: ATRAUMATIC, NORMAL INSPECTION - Eye Exam Eye Exam: EOMI, Normal appearance - ENT Exam ENT Exam: Mucous Membranes Moist - Respiratory Exam Respiratory Exam: Clear to Ausculation Bilateral, NORMAL BREATHING PATTERN. absent: Rales, Rhonchi, Wheezes, Respiratory Distress - Cardiovascular Exam Cardiovascular Exam: REGULAR RHYTHM, +S1, +S2 - GI/Abdominal Exam GI & Abdominal Exam: Soft, Normal Bowel Sounds. absent: Distended, Firm, Tenderness - Extremities Exam Extremities Exam: Normal Inspection. absent: Pedal Edema, Tenderness - Neurological Exam Neurological Exam: Alert, Awake, Normal Gait - Psychiatric Exam Psychiatric exam: Normal Affect, Normal Mood - Skin Skin Exam: Dry, Intact, Normal Color, Warm Assessment and Plan (1) Dementia Status: Chronic (2) HTN (hypertension) Status: Chronic - Assessment and Plan (Free Text) Plan: (1) Dementia Assessment & Plan: Family Hx: patient had Alzheimer's Disease at age 71 * Patient was told by a neurologist he has early signs of dementia * Psych consult Dr. Valente --> help appreciated * CT scan of the head is negative * X-ray (06/18/17) shows a left apical granuloma * Repeat chest xra y(08/30/17): no active disease * Neurology Dr. Manzanares-->help appreciated * Completed EEG 07/07/17 * Discussed patient may complete further workup as outpatient. * negative heavy metal screen * Repeat MRI 07/09: no acute intracranial abnormality. Mild chronic microangiopathic changes and mild age-related global parenchymal volume loss. Please note workup is in prior admission when patient eloped on discharge. * CT scan of the chest is negative and unremarkable * UDS is negative * UA: urine only + for ketones * Brain MRI: Limited motion degraded study. No evidence of acute hemorrhage or infarct. Minor chronic white matter ischemic changes are felt be present. Moderate generalized volume loss. * RPR: nonreactive * HIV: negative * TSH: within normal and repeat within normal * Folate: normal and repeat within normal * B12: normal and repeat within normal * Recommended to patient to follow-up with neurology outpatient and to establish care in the [facility] upon discharge Medications: * Aricept 10mg PO qHS * Namenda 10mg bid * Folic acid 1mg PO daily * Crestor 2.5mg PO HS (2) Leukocytosis Assessment & Plan: resolved WBC 12.3 on 10/08/17 Afebrile, asymptomatic Continue to monitor AM labs Blood cx: negative Urine cx: negative CXR (10/09/17): no active disease Resolved--> WBC 7.0 on 10/10/17 (3) Hypertension Assessment & Plan: Stable with medications Continue to monitor with vital signs continue home Cozaar 25mg PO daily (4) Glucose intolerance (impaired glucose tolerance) Assessment & Plan: Hgba1c: 5.7 * Will recheck in one year (5) Abnormal chest x-ray Assessment & Plan: CT chest (06/18/17): unremarkable Chest Xray (08/30/17): no active disease CXR (10/09/17): no active disease (6) Prophylactic measure Assessment & Plan: GI: Pepcid 20mg PO Daily DVT: SCDs, Patient is ambulatory; walks Q1-2hrs Disposition: Appointed Non Destructive Evaluation Manager: Court appointed, Mr. Los Henry, [address] [place] [address] ; Awaiting [employer] of [employer] [employer] [phone] to arrange for permanent placement for patient. <Gary Damon - Last Filed: 10/17/17 15:18> Objective - Vital Signs/Intake and Output Vital Signs (last 24 hours): Temp Pulse Resp BP Pulse Ox 98 F 78 20 120/83 95 10/17/17 08:39 10/17/17 08:39 10/17/17 08:39 10/17/17 08:39 10/17/17 08:39 Intake and Output: 10/17/17 10/17/17 06:59 18:59 Intake Total 800 Balance 800 - Medications Medications: Current Medications Aspirin (Ecotrin) 81 mg PO DAILY [facility] Last Admin: 10/17/17 10:13 Dose: 81 mg Donepezil HCl (Aricept) 10 mg PO HS [facility] Last Admin: 10/16/17 21:45 Dose: 10 mg Famotidine (Pepcid) 20 mg PO DAILY [facility] Last Admin: 10/17/17 10:13 Dose: 20 mg Folic Acid (Folic Acid) 1 mg PO DAILY [facility] Last Admin: 10/17/17 10:13 Dose: 1 mg Losartan Potassium (Cozaar) 25 mg PO DAILY [facility] Last Admin: 10/17/17 10:13 Dose: 25 mg Memantine (Namenda) 10 mg PO DAILY [facility] Last Admin: 10/17/17 10:13 Dose: 10 mg Rosuvastatin Calcium (Crestor) 2.5 mg PO HS [facility] Last Admin: 10/16/17 21:46 Dose: 2.5 mg - Labs Labs: 10/15/17 06:39 10/15/17 06:39 PT 11.8 SECONDS (9.7-12.2) 06/21/17 22:04 INR 1.1 06/21/17 22:04 APTT 32 SECONDS (21-34) 06/21/17 22:04 Attending/Attestation - Attestation I have personally seen and examined this patient.: Yes I have fully participated in the care of the patient.: Yes I have reviewed all pertinent clinical information, including history, physical exam and plan: Yes Notes (Text): 10/17/17 15:17 Patient was seen and examined at 8:00 AM 10/17/17 358 A. Exam, assessment and plann were gone over with the resident. Gary Damon D.O.
[2017-10-17] MEDS: Rosuvastatin Calcium 2.5 mg Tab PO SCH (21:02)
--- NOTE | 2017-10-18 09:43 | CP.PCM.PN ---
Subjective - Date & Time of Evaluation Date of Evaluation: 10/18/17 Time of Evaluation: 09:30 - Subjective Subjective: Patient was seen and examined at 9:30 PM 10/18/17 358 A Upon FULL ROS NO dysphagia/odynopahgia NO soreness in throat NO cough NO sinus/nasal congestion NO fever/chills NO muscle aches/pains NO joint pain NO chest pain/palpations NO SOB NO abdominal pain NO n/v/d/c NO burning pain with urination NO CHAMPION NO lightheadedness/dizziness NO paresthesias Exam: General: AAOX3, NAD HEENT: NCA, EOMI, PERRLA, NO cervical/supraclavicular/submandibular lymphadenopathy, NO pharyngeal erythema/exudate, Nasal Turbinates are nonerythematous/nonedematous, Oral Mucosa is moist Cardio: NS1 and NS2, NO M/R/G Resp: CTA B/L, NO R/R/W GI: BSx4, Soft, NT, NO HSM, NO guarding/rebound tenderness Ext: Pulses are strong and equal, Capillary Refill is 2 seconds, NO edema Neuro: CN II through XII are grossly intact Assessment and Plan: 1). Dimentia: Aricept, Namenda, Folic Acid, Crestor, ASA 2). Anemia: resolved 3). Hypokalemia: resolved 4). Abnormal Chest X Ray: CT Chest was unremarkable 5). Impaired Fasting Glucose: HgBA1C was 5.7 6). HTN: Cozaar 7). Prophylaxis: Pepcid, SCD, Patient is continuing to walk every 1 to 2 hours on the medical floor (this has been witnessed by me everyday) Awaiting placement. Gary Damon D.O. Objective - Vital Signs/Intake and Output Vital Signs (last 24 hours): Temp Pulse Resp BP Pulse Ox 97.7 F 78 20 121/77 96 10/18/17 07:44 10/18/17 07:44 10/18/17 07:44 10/18/17 07:44 10/18/17 07:44 Intake and Output: 10/18/17 10/18/17 06:59 18:59 Intake Total 950 Balance 950 - Medications Medications: Current Medications Aspirin (Ecotrin) 81 mg PO DAILY [facility] Last Admin: 03/21/18 10:13 Dose: 81 mg Donepezil HCl (Aricept) 10 mg PO HS [facility] Last Admin: 10/17/17 21:02 Dose: 10 mg Famotidine (Pepcid) 20 mg PO DAILY [facility] Last Admin: 10/17/17 10:13 Dose: 20 mg Folic Acid (Folic Acid) 1 mg PO DAILY [facility] Last Admin: 10/17/17 10:13 Dose: 1 mg Losartan Potassium (Cozaar) 25 mg PO DAILY [facility] Last Admin: 10/17/17 10:13 Dose: 25 mg Memantine (Namenda) 10 mg PO DAILY [facility] Last Admin: 10/17/17 10:13 Dose: 10 mg Rosuvastatin Calcium (Crestor) 2.5 mg PO HS [facility] Last Admin: 10/17/17 21:02 Dose: 2.5 mg - Labs Labs: 10/15/17 06:39 10/15/17 06:39 PT 11.8 SECONDS (9.7-12.2) 06/21/17 22:04 INR 1.1 06/21/17 22:04 APTT 32 SECONDS (21-34) 06/21/17 22:04
[2017-10-18] MEDS: Rosuvastatin Calcium 2.5 mg Tab PO SCH (21:14)
--- NOTE | 2017-10-19 07:35 | CP.PCM.PN ---
<Adi Henriquez - Last Filed: 10/19/17 07:34> Subjective - Date & Time of Evaluation Date of Evaluation: 10/19/17 Time of Evaluation: 07:34 - Subjective Subjective: PGY-1 medicine progress note for Dr. Damon's service Patient was seen and examined at bedside in no acute distress. Patient reports feeling well and has no other complaints. Denies chest pain, abdominal pain, dyspnea, nausea, vomiting, dysuria, diarrhea, constipation, and headaches. Objective - Vital Signs/Intake and Output Vital Signs (last 24 hours): Temp Pulse Resp BP Pulse Ox 97.5 F L 80 20 138/76 96 10/19/17 00:00 10/19/17 00:00 10/19/17 00:00 10/19/17 00:00 10/19/17 00:00 Intake and Output: 10/19/17 10/19/17 06:59 18:59 Intake Total 1080 Balance 1080 - Medications Medications: Current Medications Aspirin (Ecotrin) 81 mg PO DAILY [facility] Last Admin: 10/18/17 09:54 Dose: 81 mg Donepezil HCl (Aricept) 10 mg PO HS [facility] Last Admin: 10/18/17 21:14 Dose: 10 mg Famotidine (Pepcid) 20 mg PO DAILY [facility] Last Admin: 10/18/17 09:54 Dose: 20 mg Folic Acid (Folic Acid) 1 mg PO DAILY [facility] Last Admin: 10/18/17 09:54 Dose: 1 mg Losartan Potassium (Cozaar) 25 mg PO DAILY [facility] Last Admin: 10/18/17 09:54 Dose: 25 mg Memantine (Namenda) 10 mg PO DAILY [facility] Last Admin: 10/18/17 09:53 Dose: 10 mg Rosuvastatin Calcium (Crestor) 2.5 mg PO [facility] Last Admin: 10/18/17 21:14 Dose: 2.5 mg - Labs Labs: 10/15/17 06:39 10/15/17 06:39 PT 11.8 SECONDS (9.7-12.2) 06/21/17 22:04 INR 1.1 06/21/17 22:04 APTT 32 SECONDS (21-34) 06/21/17 22:04 - Additional Findings Additional findings: - Constitutional Appears: Non-toxic, No Acute Distress - Head Exam Head Exam: ATRAUMATIC, NORMAL INSPECTION - Eye Exam Eye Exam: EOMI, Normal appearance - ENT Exam ENT Exam: Mucous Membranes Moist - Respiratory Exam Respiratory Exam: Clear to Ausculation Bilateral, NORMAL BREATHING PATTERN. absent: Rales, Rhonchi, Wheezes, Respiratory Distress - Cardiovascular Exam Cardiovascular Exam: REGULAR RHYTHM, +S1, +S2 - GI/Abdominal Exam GI & Abdominal Exam: Soft, Normal Bowel Sounds. absent: Distended, Firm, Tenderness - Extremities Exam Extremities Exam: Normal Inspection. absent: Pedal Edema, Tenderness - Neurological Exam Neurological Exam: Alert, Awake, Normal Gait - Psychiatric Exam Psychiatric exam: Normal Affect, Normal Mood - Skin Skin Exam: Dry, Intact, Normal Color, Warm Assessment and Plan - Assessment and Plan (Free Text) Assessment: (1) Dementia Assessment & Plan: Family Hx: patient had Alzheimer's Disease at age 71 * Patient was told by a neurologist he has early signs of dementia * Psych consult Dr. Valente --> help appreciated * CT scan of the head is negative * X-ray (06/18/17) shows a left apical granuloma * Repeat chest xra y(08/30/17): no active disease * Neurology Dr. Manzanares-->help appreciated * Completed EEG 07/07/17 * Discussed patient may complete further workup as outpatient. * negative heavy metal screen * Repeat MRI 07/09: no acute intracranial abnormality. Mild chronic microangiopathic changes and mild age-related global parenchymal volume loss. Please note workup is in prior admission when patient eloped on discharge. * CT scan of the chest is negative and unremarkable * UDS is negative * UA: urine only + for ketones * Brain MRI: Limited motion degraded study. No evidence of acute hemorrhage or infarct. Minor chronic white matter ischemic changes are felt be present. Moderate generalized volume loss. * RPR: nonreactive * HIV: negative * TSH: within normal and repeat within normal * Folate: normal and repeat within normal * B12: normal and repeat within normal * Recommended to patient to follow-up with neurology outpatient and to establish care in the [facility] upon discharge Medications: * Aricept 10mg PO qHS * Namenda 10mg bid * Folic acid 1mg PO daily * Crestor 2.5mg PO HS (2) Leukocytosis Assessment & Plan: resolved WBC 12.3 on 10/08/17 Afebrile, asymptomatic Continue to monitor AM labs Blood cx: negative Urine cx: negative CXR (10/09/17): no active disease Resolved--> WBC 7.0 on 10/10/17 (3) Hypertension Assessment & Plan: Stable with medications Continue to monitor with vital signs continue home Cozaar 25mg PO daily (4) Glucose intolerance (impaired glucose tolerance) Assessment & Plan: Hgba1c: 5.7 * Will recheck in one year (5) Abnormal chest x-ray Assessment & Plan: CT chest (06/18/17): unremarkable Chest Xray (08/30/17): no active disease CXR (10/09/17): no active disease (6) Prophylactic measure Assessment & Plan: GI: Pepcid 20mg PO Daily DVT: SCDs, Patient is ambulatory; walks Q1-2hrs Disposition: Appointed Associate Professor Of Geography: Court appointed, Mr. Los Henry, [address] [place] [address] ; Awaiting [employer] Entry Level Account Manager [employer] [employer] [phone] to arrange for permanent placement for patient. <Gary Damon - Last Filed: 10/19/17 09:52> Objective - Vital Signs/Intake and Output Vital Signs (last 24 hours): Temp Pulse Resp BP Pulse Ox 98.0 F 83 20 111/77 96 10/19/17 08:22 10/19/17 08:22 10/19/17 08:22 10/19/17 08:22 10/19/17 08:22 Intake and Output: 10/19/17 10/19/17 06:59 18:59 Intake Total 1080 Balance 1080 - Medications Medications: Current Medications Aspirin (Ecotrin) 81 mg PO DAILY [facility] Last Admin: 10/19/17 09:16 Dose: 81 mg Donepezil HCl (Aricept) 10 mg PO HS [facility] Last Admin: 10/18/17 21:14 Dose: 10 mg Famotidine (Pepcid) 20 mg PO DAILY [facility] Last Admin: 10/19/17 09:16 Dose: 20 mg Folic Acid (Folic Acid) 1 mg PO DAILY [facility] Last Admin: 10/19/17 09:16 Dose: 1 mg Losartan Potassium (Cozaar) 25 mg PO DAILY [facility] Last Admin: 10/19/17 09:16 Dose: 25 mg Memantine (Namenda) 10 mg PO DAILY [facility] Last Admin: 10/19/17 09:16 Dose: 10 mg Rosuvastatin Calcium (Crestor) 2.5 mg PO HS [facility] Last Admin: 10/18/17 21:14 Dose: 2.5 mg - Labs Labs: 10/15/17 06:39 10/15/17 06:39 PT 11.8 SECONDS (9.7-12.2) 06/21/17 22:04 INR 1.1 06/21/17 22:04 APTT 32 SECONDS (21-34) 06/21/17 22:04 Attending/Attestation - Attestation I have personally seen and examined this patient.: Yes I have fully participated in the care of the patient.: Yes I have reviewed all pertinent clinical information, including history, physical exam and plan: Yes Notes (Text): 10/19/17 09:52 Patient was seen and examined at 9:45 AM 10/19/17 358 A Exam, assessment and plan were thoroughly gone over with the resident. Gary Damon D.O.
[2017-10-19] MEDS: Rosuvastatin Calcium 2.5 mg Tab PO SCH (21:16)
--- NOTE | 2017-10-20 09:19 | CP.PCM.PN ---
Subjective - Date & Time of Evaluation Date of Evaluation: 10/20/17 Time of Evaluation: 09:00 - Subjective Subjective: Patient was seen and examined at 9:00 AM 10/20/17 358 A Upon FULL ROS NO dysphagia/odynopahgia NO soreness in throat NO cough NO sinus/nasal congestion NO fever/chills NO muscle aches/pains NO joint pain NO chest pain/palpations NO SOB NO abdominal pain NO n/v/d/c NO burning pain with urination NO CHAMPION NO lightheadedness/dizziness NO paresthesias Exam: General: AAOX3, NAD HEENT: NCA, EOMI, PERRLA, NO cervical/supraclavicular/submandibular lymphadenopathy, NO pharyngeal erythema/exudate, Nasal Turbinates are nonerythematous/nonedematous, Oral Mucosa is moist Cardio: NS1 and NS2, NO M/R/G Resp: CTA B/L, NO R/R/W GI: BSx4, Soft, NT, NO HSM, NO guarding/rebound tenderness Ext: Pulses are strong and equal, Capillary Refill is 2 seconds, NO edema Neuro: CN II through XII are grossly intact Assessment and Plan: 1). Dimentia: Aricept, Namenda, Folic Acid, Crestor, ASA 2). Anemia: resolved 3). Hypokalemia: resolved 4). Abnormal Chest X Ray: CT Chest was unremarkable 5). Impaired Fasting Glucose: HgBA1C was 5.7 6). HTN: Cozaar 7). Prophylaxis: Pepcid, SCD, Patient is continuing to walk every 1 to 2 hours on the medical floor (this has been witnessed by me everyday) Awaiting placement. Gary Damon D.O. Objective - Vital Signs/Intake and Output Vital Signs (last 24 hours): Temp Pulse Resp BP Pulse Ox 97.8 F 89 20 112/77 97 10/20/17 08:20 10/20/17 08:20 10/20/17 08:20 10/20/17 08:20 10/20/17 08:20 Intake and Output: 10/20/17 10/20/17 06:59 18:59 Intake Total 400 300 Balance 400 300 - Medications Medications: Current Medications Aspirin (Ecotrin) 81 mg PO DAILY [facility] Last Admin: 10/19/17 09:16 Dose: 81 mg Donepezil HCl (Aricept) 10 mg PO HS [facility] Last Admin: 10/19/17 21:16 Dose: 10 mg Famotidine (Pepcid) 20 mg PO DAILY [facility] Last Admin: 10/19/17 09:16 Dose: 20 mg Folic Acid (Folic Acid) 1 mg PO DAILY [facility] Last Admin: 10/19/17 09:16 Dose: 1 mg Losartan Potassium (Cozaar) 25 mg PO DAILY [facility] Last Admin: 10/19/17 09:16 Dose: 25 mg Memantine (Namenda) 10 mg PO DAILY [facility] Last Admin: 10/19/17 09:16 Dose: 10 mg Rosuvastatin Calcium (Crestor) 2.5 mg PO HS [facility] Last Admin: 10/19/17 21:16 Dose: 2.5 mg - Labs Labs: 10/15/17 06:39 10/15/17 06:39 PT 11.8 SECONDS (9.7-12.2) 06/21/17 22:04 INR 1.1 06/21/17 22:04 APTT 32 SECONDS (21-34) 06/21/17 22:04
[2017-10-20] MEDS: Rosuvastatin Calcium 2.5 mg Tab PO SCH (21:00)
--- NOTE | 2017-10-21 11:08 | CP.PCM.PN ---
Subjective - Date & Time of Evaluation Date of Evaluation: 10/21/17 Time of Evaluation: 11:00 - Subjective Subjective: Patient was seen and examined at 11:00 AM 10/21/17 358 A Upon FULL ROS NO dysphagia/odynopahgia NO soreness in throat NO cough NO sinus/nasal congestion NO fever/chills NO muscle aches/pains NO joint pain NO chest pain/palpations NO SOB NO abdominal pain NO n/v/d/c NO burning pain with urination NO CHAMPION NO lightheadedness/dizziness NO paresthesias Exam: General: AAOX3, NAD HEENT: NCA, EOMI, PERRLA, NO cervical/supraclavicular/submandibular lymphadenopathy, NO pharyngeal erythema/exudate, Nasal Turbinates are nonerythematous/nonedematous, Oral Mucosa is moist Cardio: NS1 and NS2, NO M/R/G Resp: CTA B/L, NO R/R/W GI: BSx4, Soft, NT, NO HSM, NO guarding/rebound tenderness Ext: Pulses are strong and equal, Capillary Refill is 2 seconds, NO edema Neuro: CN II through XII are grossly intact Assessment and Plan: 1). Dimentia: Aricept, Namenda, Folic Acid, Crestor, ASA 2). Anemia: resolved 3). Hypokalemia: resolved 4). Abnormal Chest X Ray: CT Chest was unremarkable 5). Impaired Fasting Glucose: HgBA1C was 5.7 6). HTN: Cozaar 7). Prophylaxis: Pepcid, SCD, Patient is continuing to walk every 1 to 2 hours on the medical floor (this has been witnessed by me everyday) Awaiting placement. Gary Damon D.O. Objective - Vital Signs/Intake and Output Vital Signs (last 24 hours): Temp Pulse Resp BP Pulse Ox 98.5 F 72 20 124/75 97 10/21/17 10:00 10/21/17 10:00 10/21/17 10:00 10/21/17 10:00 10/21/17 10:00 Intake and Output: 10/21/17 10/21/17 06:59 18:59 Intake Total 450 150 Balance 450 150 - Medications Medications: Current Medications Aspirin (Ecotrin) 81 mg PO DAILY [facility] Last Admin: 10/21/17 10:21 Dose: 81 mg Donepezil HCl (Aricept) 10 mg PO HS [facility] Last Admin: 10/20/17 21:00 Dose: 10 mg Famotidine (Pepcid) 20 mg PO DAILY [facility] Last Admin: 10/21/17 10:21 Dose: 20 mg Folic Acid (Folic Acid) 1 mg PO DAILY [facility] Last Admin: 10/21/17 10:21 Dose: 1 mg Losartan Potassium (Cozaar) 25 mg PO DAILY [facility] Last Admin: 10/21/17 10:21 Dose: 25 mg Memantine (Namenda) 10 mg PO DAILY [facility] Last Admin: 10/21/17 10:21 Dose: 10 mg Rosuvastatin Calcium (Crestor) 2.5 mg PO HS [facility] Last Admin: 10/20/17 21:00 Dose: 2.5 mg - Labs Labs: 10/15/17 06:39 10/15/17 06:39 PT 11.8 SECONDS (9.7-12.2) 06/21/17 22:04 INR 1.1 06/21/17 22:04 APTT 32 SECONDS (21-34) 06/21/17 22:04
[2017-10-21] MEDS: Rosuvastatin Calcium 2.5 mg Tab PO SCH (21:17)
--- NOTE | 2017-10-22 07:34 | CP.PCM.PN ---
<Uday Gutierrez - Last Filed: 10/22/17 14:49> Subjective - Date & Time of Evaluation Date of Evaluation: 10/22/17 Time of Evaluation: 07:33 - Subjective Subjective: PGY1 Medicine Note for Dr. Sawyer Patient seen and examined at bedside this morning. No acute events overnight. Patient was seen walking around the floors this morning. He is in good spirits and states that he is feeling well. He denies any complaints at this time. Denies fevers, chills, nausea, vomiting, chest pain, abdominal pain, dysuria, diarrhea, constipation or headaches Objective - Vital Signs/Intake and Output Vital Signs (last 24 hours): Temp Pulse Resp BP Pulse Ox 98.2 F 74 20 124/78 97 10/22/17 07:29 10/22/17 07:29 10/22/17 07:29 10/22/17 07:29 10/22/17 07:29 Intake and Output: 10/22/17 10/22/17 06:59 18:59 Intake Total 400 200 Balance 400 200 - Medications Medications: Current Medications Aspirin (Ecotrin) 81 mg PO DAILY [facility] Last Admin: 10/21/17 10:21 Dose: 81 mg Donepezil HCl (Aricept) 10 mg PO HS [facility] Last Admin: 10/21/17 21:17 Dose: 10 mg Famotidine (Pepcid) 20 mg PO DAILY [facility] Last Admin: 10/21/17 10:21 Dose: 20 mg Folic Acid (Folic Acid) 1 mg PO DAILY [facility] Last Admin: 10/21/17 10:21 Dose: 1 mg Losartan Potassium (Cozaar) 25 mg PO DAILY [facility] Last Admin: 10/21/17 10:21 Dose: 25 mg Memantine (Namenda) 10 mg PO DAILY [facility] Last Admin: 10/21/17 10:21 Dose: 10 mg Rosuvastatin Calcium (Crestor) 2.5 mg PO HS [facility] Last Admin: 10/21/17 21:17 Dose: 2.5 mg - Labs Labs: 10/15/17 06:39 10/15/17 06:39 PT 11.8 SECONDS (9.7-12.2) 06/21/17 22:04 INR 1.1 06/21/17 22:04 APTT 32 SECONDS (21-34) 06/21/17 22:04 - Constitutional Appears: Non-toxic, No Acute Distress - Head Exam Head Exam: ATRAUMATIC, NORMOCEPHALIC - Eye Exam Eye Exam: EOMI, Normal appearance - ENT Exam ENT Exam: Mucous Membranes Moist - Respiratory Exam Respiratory Exam: Clear to Ausculation Bilateral, NORMAL BREATHING PATTERN. absent: Accessory Muscle Use, Rales, Rhonchi, Wheezes, Respiratory Distress - Cardiovascular Exam Cardiovascular Exam: REGULAR RHYTHM, +S1, +S2 - GI/Abdominal Exam GI & Abdominal Exam: Soft, Normal Bowel Sounds. absent: Firm, Guarding, Rigid, Tenderness, Rebound - Extremities Exam Extremities Exam: Normal Inspection. absent: Calf Tenderness, Pedal Edema - Neurological Exam Neurological Exam: Alert, Awake, Normal Gait. absent: Oriented x3 (knows self, place, president and remembers Dr. Sawyer, but thought it was August 2017. Easily re-oriented.) - Psychiatric Exam Psychiatric exam: Normal Affect, Normal Mood - Skin Skin Exam: Dry, Warm Assessment and Plan - Assessment and Plan (Free Text) Plan: Dementia Family Hx: patient's family member had Alzheimer's Disease and at age 70 * Patient was told by a neurologist he has early signs of dementia * Psych consult Dr. Valente --> help appreciated * CT scan of the head is negative * X-ray (06/18/17) shows a left apical granuloma * Repeat chest xra y(08/30/17): no active disease * Neurology Dr. Manzanares-->help appreciated * Completed EEG 07/07/17 * Discussed patient may complete further workup as outpatient. * negative heavy metal screen * Repeat MRI 07/09: no acute intracranial abnormality. Mild chronic microangiopathic changes and mild age-related global parenchymal volume loss. Please note workup is in prior admission when patient eloped on discharge. * CT scan of the chest is negative and unremarkable * UDS is negative * UA: urine only + for ketones * Brain MRI: Limited motion degraded study. No evidence of acute hemorrhage or infarct. Minor chronic white matter ischemic changes are felt be present. Moderate generalized volume loss. * RPR: nonreactive * HIV: negative * TSH: within normal and repeat within normal * Folate: normal and repeat within normal * B12: normal and repeat within normal * Recommended to patient to follow-up with neurology outpatient and to establish care in the [facility] upon discharge Medications: * Aricept 10mg PO qHS * Namenda 10mg bid * Folic acid 1mg PO daily * Crestor 2.5mg PO HS Leukocytosis - resolved WBC 12.3 on 10/08/17 Afebrile, asymptomatic Continue to monitor AM labs Blood cx: negative Urine cx: negative CXR (10/09/17): no active disease Resolved--> WBC 7.0 on 10/10/17 Hypertension Stable with medications Continue to monitor with vital signs continue home Cozaar 25mg PO daily Glucose intolerance (impaired glucose tolerance) Hgba1c: 5.7 * Will recheck in one year Abnormal chest x-ray CT chest (06/18/17): unremarkable Chest Xray (08/30/17): no active disease CXR (10/09/17): no active disease Prophylactic measure GI: Pepcid 20mg PO Daily DVT: SCDs, Patient is ambulatory; walks Q1-2hrs Disposition: Appointed Reel Fed Printer: Court appointed, Mr. Los Henry, [address] [place] [address] ; Awaiting Office of Public Guardianship Client Experience Specialist Lv Hooks [phone] to arrange for permanent placement for patient. No updates at this time. Case discussed with Dr. Silverio Frye Matt PGY1 <Tamera Sawyer V - Last Filed: 10/22/17 15:09> Objective - Vital Signs/Intake and Output Vital Signs (last 24 hours): Temp Pulse Resp BP Pulse Ox 98.2 F 74 20 124/78 97 10/22/17 07:29 10/22/17 07:29 10/22/17 07:29 10/22/17 07:29 10/22/17 07:29 Intake and Output: 10/22/17 10/22/17 06:59 18:59 Intake Total 400 200 Balance 400 200 - Medications Medications: Current Medications Aspirin (Ecotrin) 81 mg PO DAILY [facility] Last Admin: 10/22/17 09:26 Dose: 81 mg Donepezil HCl (Aricept) 10 mg PO HS [facility] Last Admin: 10/21/17 21:17 Dose: 10 mg Famotidine (Pepcid) 20 mg PO DAILY [facility] Last Admin: 10/22/17 09:26 Dose: 20 mg Folic Acid (Folic Acid) 1 mg PO DAILY [facility] Last Admin: 10/22/17 09:26 Dose: 1 mg Losartan Potassium (Cozaar) 25 mg PO DAILY [facility] Last Admin: 10/22/17 09:26 Dose: 25 mg Memantine (Namenda) 10 mg PO DAILY [facility] Last Admin: 10/22/17 09:26 Dose: 10 mg Rosuvastatin Calcium (Crestor) 2.5 mg PO HS [facility] Last Admin: 10/21/17 21:17 Dose: 2.5 mg - Labs Labs: 10/15/17 06:39 10/15/17 06:39 PT 11.8 SECONDS (9.7-12.2) 06/21/17 22:04 INR 1.1 06/21/17 22:04 APTT 32 SECONDS (21-34) 06/21/17 22:04 Assessment and Plan (1) Leukocytosis Status: Acute (2) Abnormal chest x-ray Status: Chronic (3) Glucose intolerance (impaired glucose tolerance) Status: Chronic (4) Dementia Status: Chronic (5) Hypertension Status: Chronic (6) Anemia Status: Chronic (7) Prophylactic measure Status: Acute Attending/Attestation - Attestation I have personally seen and examined this patient.: Yes I have fully participated in the care of the patient.: Yes I have reviewed all pertinent clinical information, including history, physical exam and plan: Yes Notes (Text): Patient seen, examined and case discussed with medical assistant prn. Patient seen in room. patient is confused about month but able to identify the President. He is ambulatory and in good spirits. Patient is awaiting placement. Assessment/Plan (1) Leukocytosis (resolved) Assessment & Plan: * Patient had mild leukocytosis on Sunday. Normalized * patient afebrile. * Blood cultures (10/09/17): no growth after 48 hours X2-->need to be updated * Urine culture (10/09/17): no growth * Chest Xray (10/09/17): no active disease. Specifically no infiltrate. Mild arthrosis * Patient is asymptomatic Status: Acute (2) Dementia, Chronic Assessment & Plan: Family Hx: patient had Alzheimer's Disease at age 71 * Patient was told by a neurologist he has early signs of dementia * Psych consult Dr. Valente --> help appreciated * CT scan of the head is negative * X-ray shows a apical granuloma * Neurology Dr. Manzanares-->help appreciated * Completed EEG 07/07/17 * Discussed patient may complete further workup as outpatient. * negative heavy metal screen * Repeat MRI 07/09: no acute intracranial abnormality. Mild chronic microangiopathic changes and mild age-related global parenchymal volume loss. Please note workup is in prior admission when patient eloped on discharge. * CT scan of the chest is negative and unremarkable * UDS is negative * UA: urine only + for ketones * Brain MRI: Limited motion degraded study. No evidence of acute hemorrhage or infarct. Minor chronic white matter ischemic changes are felt be present. Moderate generalized volume loss. * RPR: nonreactive * HIV: negative * TSH: within normal and repeat within normal * Folate: normal and repeat within normal * B12: normal and repeat within normal * Recommended to patient to follow-up with neurology outpatient and to establish care in the [facility] upon discharge Medications: * Aricept 10mg PO qHS * Namenda 10mg bid * Folic acid 1mg PO daily * Crestor 2.5mg PO HS Status: Chronic (3) Hypertension, Chronic Assessment & Plan: * Stable with medications * Continue to monitor with vital signs * continue home Cozaar 25mg PO daily Status: Chronic (4) Glucose intolerance (impaired glucose tolerance), Chronic Assessment & Plan: * Hgba1c: 5.7 * Will need check in one year for a1c to prevent diabetes Status: Chronic (5) Abnormal chest x-ray Assessment & Plan: * F/u CT chest: unremarkable Status: Chronic (6) Prophylactic measure Assessment & Plan: * GI: Pepcid 20mg PO BID * DVT: SCDs, Patient is ambulatory. * Appointed Reel Fed Printer: Court appointed, Mr. Los Henry, [address] [place] [id number] ; Temporary Guardian is Dangelo Thomas. 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
[2017-10-22 17:15] LABS: BASO # 0.1 K/uL (0.0-0.2); BASO % 0.8 % (0.0-2.0); EOS # 0.1 K/uL (0.0-0.7); EOS % 1.3 % (0.0-4.0); HEMOGLOBIN 14.7 g/dL (12.0-18.0); LYMPH # 2.1 K/uL (1.0-4.3); LYMPH % 30.1 % (20.0-40.0); MEAN CORPUSCULAR HEMOGLOBIN 31.6 pg (27.0-31.0); MEAN CORPUSCULAR HGB CONC 34.3 g/dL (33.0-37.0); MEAN PLATELET VOLUME 7.4 fL (7.2-11.7); MONO # 0.6 K/uL (0.0-0.8); NEUT # 4.2 K/uL (1.8-7.0); NEUT % 58.8 % (50.0-75.0); RBC 4.66 Mil/uL (4.40-5.90); RED CELL DISTRIBUTION WIDTH 13.2 % (11.5-14.5); WHITE BLOOD COUNT 7.1 K/uL (4.8-10.8)
[2017-10-22 17:28] LABS: ALB/GLOB RATIO 1.2 (1.0-2.1); ALBUMIN 3.8 g/dL (3.5-5.0); ALT/SGPT 35 U/L (21-72); AST/SGOT 25 U/L (17-59); BLOOD UREA NITROGEN 8 mg/dL (9-20); CALCIUM 8.5 mg/dl (8.6-10.4); GFR AFRICAN-AMERICAN > 60; GFR NON-AFRICAN AMERICAN > 60
[2017-10-22] MEDS: Rosuvastatin Calcium 2.5 mg Tab PO SCH (22:17)
--- NOTE | 2017-10-23 20:12 | CP.PCM.PN ---
Subjective - Date & Time of Evaluation Date of Evaluation: 10/23/17 Time of Evaluation: 11:30 - Subjective Subjective: Medical Attending Note: Patient seen and examined at bedside. No acute complaints. Objective - Vital Signs/Intake and Output Vital Signs (last 24 hours): Temp Pulse Resp BP Pulse Ox 97.6 F 80 20 134/79 97 10/23/17 15:30 10/23/17 15:30 10/23/17 15:30 10/23/17 15:30 10/23/17 15:30 Intake and Output: 10/23/17 10/24/17 18:59 06:59 Intake Total 400 Balance 400 - Medications Medications: Current Medications Aspirin (Ecotrin) 81 mg PO DAILY [facility] Last Admin: 10/23/17 10:09 Dose: 81 mg Donepezil HCl (Aricept) 10 mg PO HS [facility] Last Admin: 10/22/17 22:17 Dose: 10 mg Famotidine (Pepcid) 20 mg PO DAILY [facility] Last Admin: 10/23/17 10:09 Dose: 20 mg Folic Acid (Folic Acid) 1 mg PO DAILY [facility] Last Admin: 10/23/17 10:09 Dose: 1 mg Losartan Potassium (Cozaar) 25 mg PO DAILY [facility] Last Admin: 10/23/17 10:09 Dose: 25 mg Memantine (Namenda) 10 mg PO DAILY [facility] Last Admin: 10/23/17 10:09 Dose: 10 mg Rosuvastatin Calcium (Crestor) 2.5 mg PO HS [facility] Last Admin: 10/22/17 22:17 Dose: 2.5 mg - Labs Labs: 10/22/17 17:05 10/22/17 17:05 PT 11.8 SECONDS (9.7-12.2) 06/21/17 22:04 INR 1.1 06/21/17 22:04 APTT 32 SECONDS (21-34) 06/21/17 22:04 - Constitutional Appears: Non-toxic, No Acute Distress - Head Exam Head Exam: NORMAL INSPECTION - Eye Exam Eye Exam: EOMI - ENT Exam ENT Exam: Mucous Membranes Moist - Respiratory Exam Respiratory Exam: Clear to Ausculation Bilateral, NORMAL BREATHING PATTERN. absent: Rales, Rhonchi, Wheezes - Cardiovascular Exam Cardiovascular Exam: REGULAR RHYTHM, +S1, +S2 - GI/Abdominal Exam GI & Abdominal Exam: Soft, Normal Bowel Sounds. absent: Distended, Firm, Guarding, Rigid, Tenderness, Rebound - Extremities Exam Extremities Exam: absent: Pedal Edema, Tenderness - Neurological Exam Neurological Exam: Alert, Awake, Oriented x3 (not oriented to time, knows president) - Psychiatric Exam Psychiatric exam: Normal Affect, Normal Mood - Skin Skin Exam: Dry, Intact, Normal Color, Warm Assessment and Plan (1) Leukocytosis Status: Acute (2) Abnormal chest x-ray Status: Chronic (3) Glucose intolerance (impaired glucose tolerance) Status: Chronic (4) Dementia Status: Chronic (5) Hypertension Status: Chronic (6) Anemia Status: Chronic (7) Prophylactic measure Status: Acute Attending/Attestation - Attestation I have personally seen and examined this patient.: Yes I have fully participated in the care of the patient.: Yes I have reviewed all pertinent clinical information, including history, physical exam and plan: Yes Notes (Text): Patient seen, examined and case discussed with medical representative. Patient seen in room. patient is confused about month but able to identify the President. He is ambulatory and in good spirits. Patient is awaiting placement. Social work and case management on case. Speaking the guardian in regards to placement to [facility]. Assessment/Plan (1) Leukocytosis (resolved) Assessment & Plan: * Patient had mild leukocytosis on Sunday. Normalized * patient afebrile. * Blood cultures (10/09/17): no growth after 5 daysX2 * Urine culture (10/09/17): no growth * Chest Xray (10/09/17): no active disease. Specifically no infiltrate. Mild arthrosis * Patient is asymptomatic Status: Acute (2) Dementia, Chronic Assessment & Plan: Family Hx: patient had Alzheimer's Disease at age 71 * Patient was told by a neurologist he has early signs of dementia * Psych consult Dr. Valente --> help appreciated * CT scan of the head is negative * X-ray shows a apical granuloma * Neurology Dr. Manzanares-->help appreciated * Completed EEG 07/07/17 * Discussed patient may complete further workup as outpatient. * negative heavy metal screen * Repeat MRI 07/09: no acute intracranial abnormality. Mild chronic microangiopathic changes and mild age-related global parenchymal volume loss. Please note workup is in prior admission when patient eloped on discharge. * CT scan of the chest is negative and unremarkable * UDS is negative * UA: urine only + for ketones * Brain MRI: Limited motion degraded study. No evidence of acute hemorrhage or infarct. Minor chronic white matter ischemic changes are felt be present. Moderate generalized volume loss. * RPR: nonreactive * HIV: negative * TSH: within normal and repeat within normal * Folate: normal and repeat within normal * B12: normal and repeat within normal * Recommended to patient to follow-up with neurology outpatient and to establish care in the [facility] upon discharge Medications: * Aricept 10mg PO qHS * Namenda 10mg bid * Folic acid 1mg PO daily * Crestor 2.5mg PO HS Status: Chronic (3) Hypertension, Chronic Assessment & Plan: * Stable with medications * Continue to monitor with vital signs * continue home Cozaar 25mg PO daily Status: Chronic (4) Glucose intolerance (impaired glucose tolerance), Chronic Assessment & Plan: * Hgba1c: 5.7 * Will need check in one year for a1c to prevent diabetes Status: Chronic (5) Abnormal chest x-ray Assessment & Plan: * F/u CT chest: unremarkable Status: Chronic (6) Prophylactic measure Assessment & Plan: * GI: Pepcid 20mg PO BID * DVT: SCDs, Patient is ambulatory. * Social work update: Office of Public Guardian MACARIO Hooks ([phone]) on board-> * patient preference for longterm care. [facility] but patient is hospitalized unclear if he can go and come back to facility given that is to determine discharge placement?
[2017-10-23] MEDS: Rosuvastatin Calcium 2.5 mg Tab PO SCH (21:02)
--- NOTE | 2017-10-24 06:51 | CP.PCM.PN ---
<Uday Gutierrez - Last Filed: 10/24/17 06:48> Subjective - Date & Time of Evaluation Date of Evaluation: 10/24/17 Time of Evaluation: 06:48 - Subjective Subjective: PGY1 Medicine Note for Dr. Sawyer Patient seen and examined this morning at bedside. No acute events overnight. Patient seen walking the halls. He is in good spirits with no acute complaints at this time. Objective - Vital Signs/Intake and Output Vital Signs (last 24 hours): Temp Pulse Resp BP Pulse Ox 97.8 F 80 20 121/75 98 10/23/17 23:29 10/23/17 23:29 10/23/17 23:29 10/23/17 23:29 10/23/17 23:29 Intake and Output: 10/23/17 10/24/17 18:59 06:59 Intake Total 400 980 Balance 400 980 - Medications Medications: Current Medications Aspirin (Ecotrin) 81 mg PO DAILY [facility] Last Admin: 10/23/17 10:09 Dose: 81 mg Donepezil HCl (Aricept) 10 mg PO [facility] Last Admin: 10/23/17 21:02 Dose: 10 mg Famotidine (Pepcid) 20 mg PO DAILY [facility] Last Admin: 10/23/17 10:09 Dose: 20 mg Folic Acid (Folic Acid) 1 mg PO DAILY [facility] Last Admin: 10/23/17 10:09 Dose: 1 mg Losartan Potassium (Cozaar) 25 mg PO DAILY [facility] Last Admin: 10/23/17 10:09 Dose: 25 mg Memantine (Namenda) 10 mg PO DAILY [facility] Last Admin: 10/23/17 10:09 Dose: 10 mg Rosuvastatin Calcium (Crestor) 2.5 mg PO [facility] Last Admin: 10/23/17 21:02 Dose: 2.5 mg - Labs Labs: 10/22/17 17:05 10/22/17 17:05 PT 11.8 SECONDS (9.7-12.2) 06/21/17 22:04 INR 1.1 06/21/17 22:04 APTT 32 SECONDS (21-34) 06/21/17 22:04 - Constitutional Appears: Non-toxic, No Acute Distress - Head Exam Head Exam: ATRAUMATIC, NORMOCEPHALIC - Eye Exam Eye Exam: EOMI, Normal appearance - ENT Exam ENT Exam: Mucous Membranes Moist - Respiratory Exam Respiratory Exam: Clear to Ausculation Bilateral, NORMAL BREATHING PATTERN. absent: Accessory Muscle Use, Rales, Rhonchi, Wheezes, Respiratory Distress - Cardiovascular Exam Cardiovascular Exam: REGULAR RHYTHM, +S1, +S2 - GI/Abdominal Exam GI & Abdominal Exam: Soft, Normal Bowel Sounds. absent: Distended, Firm, Guarding, Rigid, Tenderness - Extremities Exam Extremities Exam: absent: Calf Tenderness, Pedal Edema - Neurological Exam Neurological Exam: Alert, Awake, Oriented x3 - Psychiatric Exam Psychiatric exam: Normal Affect, Normal Mood - Skin Skin Exam: Dry, Warm Assessment and Plan - Assessment and Plan (Free Text) Plan: Dementia Family Hx: patient's family member had Alzheimer's Disease and at age 70 * Patient was told by a neurologist he has early signs of dementia * Psych consult Dr. Valente --> help appreciated * CT scan of the head is negative * X-ray (06/18/17) shows a left apical granuloma * Repeat chest xra y(08/30/17): no active disease * Neurology Dr. Manzanares-->help appreciated * Completed EEG 07/07/17 * Discussed patient may complete further workup as outpatient. * negative heavy metal screen * Repeat MRI 07/09: no acute intracranial abnormality. Mild chronic microangiopathic changes and mild age-related global parenchymal volume loss. Please note workup is in prior admission when patient eloped on discharge. * CT scan of the chest is negative and unremarkable * UDS is negative * UA: urine only + for ketones * Brain MRI: Limited motion degraded study. No evidence of acute hemorrhage or infarct. Minor chronic white matter ischemic changes are felt be present. Moderate generalized volume loss. * RPR: nonreactive * HIV: negative * TSH: within normal and repeat within normal * Folate: normal and repeat within normal * B12: normal and repeat within normal * Recommended to patient to follow-up with neurology outpatient and to establish care in the [facility] clinic upon discharge Medications: * Aricept 10mg PO qHS * Namenda 10mg bid * Folic acid 1mg PO daily * Crestor 2.5mg PO HS Leukocytosis - resolved WBC 12.3 on 10/08/17 Afebrile, asymptomatic Continue to monitor AM labs Blood cx: negative Urine cx: negative CXR (10/09/17): no active disease Resolved--> WBC 7.0 on 10/10/17 Hypertension Stable with medications Continue to monitor with vital signs continue home Cozaar 25mg PO daily Glucose intolerance (impaired glucose tolerance) Hgba1c: 5.7 * Will recheck in one year Abnormal chest x-ray CT chest (06/18/17): unremarkable Chest Xray (08/30/17): no active disease CXR (10/09/17): no active disease Prophylactic measure GI: Pepcid 20mg PO Daily DVT: SCDs, Patient is ambulatory; walks Q1-2hrs Disposition: Appointed Clamp Forklift Operator: Court appointed, Mr. Los Henry, [address] [place] [address] ; Awaiting Office of Public Guardianship [employer] Lv Hooks [phone] to arrange for permanent placement for patient. No updates at this time. Case discussed with Dr. Silverio Gutierrez PGY1 <Tamera Sawyer V - Last Filed: 10/24/17 17:48> Objective - Vital Signs/Intake and Output Vital Signs (last 24 hours): Temp Pulse Resp BP Pulse Ox 98.1 F 80 20 123/83 99 10/24/17 15:00 10/24/17 15:00 10/24/17 15:00 10/24/17 15:00 10/24/17 15:00 Intake and Output: 10/24/17 10/24/17 06:59 18:59 Intake Total 980 500 Balance 980 500 - Medications Medications: Current Medications Aspirin (Ecotrin) 81 mg PO DAILY [facility] Last Admin: 10/24/17 09:55 Dose: 81 mg Donepezil HCl (Aricept) 10 mg PO HS [facility] Last Admin: 10/23/17 21:02 Dose: 10 mg Famotidine (Pepcid) 20 mg PO DAILY [facility] Last Admin: 10/24/17 09:55 Dose: 20 mg Folic Acid (Folic Acid) 1 mg PO DAILY [facility] Last Admin: 10/24/17 09:55 Dose: 1 mg Losartan Potassium (Cozaar) 25 mg PO DAILY [facility] Last Admin: 10/24/17 09:55 Dose: 25 mg Memantine (Namenda) 10 mg PO DAILY [facility] Last Admin: 03/28/18 09:55 Dose: 10 mg Rosuvastatin Calcium (Crestor) 2.5 mg PO HS [facility] Last Admin: 10/23/17 21:02 Dose: 2.5 mg - Labs Labs: 10/22/17 17:05 10/22/17 17:05 PT 11.8 SECONDS (9.7-12.2) 06/21/17 22:04 INR 1.1 06/21/17 22:04 APTT 32 SECONDS (21-34) 06/21/17 22:04 Assessment and Plan (1) Leukocytosis Status: Acute (2) Abnormal chest x-ray Status: Chronic (3) Glucose intolerance (impaired glucose tolerance) Status: Chronic (4) Dementia Status: Chronic (5) Hypertension Status: Chronic (6) Anemia Status: Chronic (7) Prophylactic measure Status: Acute Attending/Attestation - Attestation I have personally seen and examined this patient.: Yes I have fully participated in the care of the patient.: Yes I have reviewed all pertinent clinical information, including history, physical exam and plan: Yes Notes (Text): Patient seen, examined and case discussed with expert medical writer. Patient seen in room. patient is confused about month but able to identify the President. He is ambulatory and in good spirits. He took a shower today Patient is awaiting placement. Social work and case management on case. Speaking the guardian in regards to placement to [facility]. per social work note, the guardian needs to fill out specific benefit necessary to secure placement Assessment/Plan (1) Leukocytosis (resolved) Assessment & Plan: * Patient had mild leukocytosis on Sunday. Normalized * patient afebrile. * Blood cultures (10/09/17): no growth after 5 daysX2 * Urine culture (10/09/17): no growth * Chest Xray (10/09/17): no active disease. Specifically no infiltrate. Mild arthrosis * Patient is asymptomatic Status: Acute (2) Dementia, Chronic Assessment & Plan: Family Hx: patient had Alzheimer's Disease at age 71 * Patient was told by a neurologist he has early signs of dementia * Psych consult Dr. Valente --> help appreciated * CT scan of the head is negative * X-ray shows a apical granuloma * Neurology Dr. Manzanares-->help appreciated * Completed EEG 07/07/17 * Discussed patient may complete further workup as outpatient. * negative heavy metal screen * Repeat MRI 07/09: no acute intracranial abnormality. Mild chronic microangiopathic changes and mild age-related global parenchymal volume loss. Please note workup is in prior admission when patient eloped on discharge. * CT scan of the chest is negative and unremarkable * UDS is negative * UA: urine only + for ketones * Brain MRI: Limited motion degraded study. No evidence of acute hemorrhage or infarct. Minor chronic white matter ischemic changes are felt be present. Moderate generalized volume loss. * RPR: nonreactive * HIV: negative * TSH: within normal and repeat within normal * Folate: normal and repeat within normal * B12: normal and repeat within normal * Recommended to patient to follow-up with neurology outpatient and to establish care in the [facility] upon discharge Medications: * Aricept 10mg PO qHS * Namenda 10mg bid * Folic acid 1mg PO daily * Crestor 2.5mg PO HS Status: Chronic (3) Hypertension, Chronic Assessment & Plan: * Stable with medications * Continue to monitor with vital signs * continue home Cozaar 25mg PO daily Status: Chronic (4) Glucose intolerance (impaired glucose tolerance), Chronic Assessment & Plan: * Hgba1c: 5.7 * Will need check in one year for a1c to prevent diabetes Status: Chronic (5) Abnormal chest x-ray Assessment & Plan: * F/u CT chest: unremarkable Status: Chronic (6) Prophylactic measure Assessment & Plan: * GI: Pepcid 20mg PO BID * DVT: SCDs, Patient is ambulatory. * Social work update: Office of Public Guardian MACARIO Hooks ([phone]) on board-> * F/u Social work and case management in regards to discharge planning
[2017-10-24] MEDS: Rosuvastatin Calcium 2.5 mg Tab PO SCH (21:13)
[2017-10-25] MEDS: Rosuvastatin Calcium 2.5 mg Tab PO SCH (22:27)
--- NOTE | 2017-10-26 07:23 | CP.PCM.PN ---
<Uday Gutierrez - Last Filed: 10/26/17 15:35> Subjective - Date & Time of Evaluation Date of Evaluation: 10/26/17 Time of Evaluation: 07:23 - Subjective Subjective: PGY1 Medicine Note for Dr. Sawyer Patient seen and examined this morning at bedside. No acute events overnight. Patient seen staring out the window. He is in good spirits, although he states he wishes he could go outside. He is reminiscing about going to the planetarium that he is able to see out the window as a child. Patient has no acute complaints at this time. Objective - Vital Signs/Intake and Output Vital Signs (last 24 hours): Temp Pulse Resp BP Pulse Ox 97.9 F 79 20 115/79 98 10/25/17 23:56 10/25/17 23:56 10/25/17 23:56 10/25/17 23:56 10/25/17 23:56 Intake and Output: 10/26/17 10/26/17 06:59 18:59 Intake Total 360 Balance 360 - Medications Medications: Current Medications Aspirin (Ecotrin) 81 mg PO DAILY [facility] Last Admin: 10/25/17 17:22 Dose: 81 mg Donepezil HCl (Aricept) 10 mg PO HS [facility] Last Admin: 10/25/17 22:27 Dose: 10 mg Famotidine (Pepcid) 20 mg PO DAILY [facility] Last Admin: 10/25/17 17:22 Dose: 20 mg Folic Acid (Folic Acid) 1 mg PO DAILY [facility] Last Admin: 10/25/17 17:22 Dose: 1 mg Losartan Potassium (Cozaar) 25 mg PO DAILY [facility] Last Admin: 10/25/17 17:25 Dose: Not Given Memantine (Namenda) 10 mg PO DAILY [facility] Last Admin: 10/25/17 17:22 Dose: 10 mg Rosuvastatin Calcium (Crestor) 2.5 mg PO HS [facility] Last Admin: 10/25/17 22:27 Dose: 2.5 mg - Labs Labs: 10/22/17 17:05 10/22/17 17:05 PT 11.8 SECONDS (9.7-12.2) 06/21/17 22:04 INR 1.1 06/21/17 22:04 APTT 32 SECONDS (21-34) 06/21/17 22:04 - Constitutional Appears: Non-toxic, No Acute Distress - Head Exam Head Exam: ATRAUMATIC, NORMOCEPHALIC - Eye Exam Eye Exam: EOMI, Normal appearance - ENT Exam ENT Exam: Mucous Membranes Moist - Respiratory Exam Respiratory Exam: Clear to Ausculation Bilateral, NORMAL BREATHING PATTERN. absent: Accessory Muscle Use, Rales, Rhonchi, Wheezes, Respiratory Distress - Cardiovascular Exam Cardiovascular Exam: REGULAR RHYTHM, +S1, +S2 - GI/Abdominal Exam GI & Abdominal Exam: Soft, Normal Bowel Sounds. absent: Distended, Firm, Guarding, Rigid, Tenderness - Extremities Exam Extremities Exam: absent: Calf Tenderness, Pedal Edema - Neurological Exam Neurological Exam: Alert, Awake, Normal Gait, Oriented x3 - Psychiatric Exam Psychiatric exam: Normal Affect, Normal Mood - Skin Skin Exam: Dry, Warm Assessment and Plan - Assessment and Plan (Free Text) Plan: Dementia Family Hx: patient's family member had Alzheimer's Disease and at age 70 * Patient was told by a neurologist he has early signs of dementia * Psych consult Dr. Valente --> help appreciated * CT scan of the head is negative * X-ray (06/18/17) shows a left apical granuloma * Repeat chest xra y(08/30/17): no active disease * Neurology Dr. Manzanares-->help appreciated * Completed EEG 07/07/17 * Discussed patient may complete further workup as outpatient. * negative heavy metal screen * Repeat MRI 07/09: no acute intracranial abnormality. Mild chronic microangiopathic changes and mild age-related global parenchymal volume loss. Please note workup is in prior admission when patient eloped on discharge. * CT scan of the chest is negative and unremarkable * UDS is negative * UA: urine only + for ketones * Brain MRI: Limited motion degraded study. No evidence of acute hemorrhage or infarct. Minor chronic white matter ischemic changes are felt be present. Moderate generalized volume loss. * RPR: nonreactive * HIV: negative * TSH: within normal and repeat within normal * Folate: normal and repeat within normal * B12: normal and repeat within normal * Recommended to patient to follow-up with neurology outpatient and to establish care in the [facility] upon discharge Medications: * Aricept 10mg PO qHS * Namenda 10mg bid * Folic acid 1mg PO daily * Crestor 2.5mg PO HS Leukocytosis - resolved WBC 12.3 on 10/08/17 Afebrile, asymptomatic Continue to monitor AM labs Blood cx: negative Urine cx: negative CXR (10/09/17): no active disease Resolved--> WBC 7.0 on 10/10/17 Hypertension Stable with medications Continue to monitor with vital signs continue home Cozaar 25mg PO daily Glucose intolerance (impaired glucose tolerance) Hgba1c: 5.7 * Will recheck in one year Abnormal chest x-ray CT chest (06/18/17): unremarkable Chest Xray (08/30/17): no active disease CXR (10/09/17): no active disease Prophylactic measure GI: Pepcid 20mg PO Daily DVT: SCDs, Patient is ambulatory; walks Q1-2hrs Disposition: Appointed Quality Control Representative: Court appointed, Mr. Los Henry, [address] [facility] [address] ; Awaiting Office of Public [employer]ianship [employer] Lv Hooks [phone] to arrange for permanent placement for patient. Social work has patient approved for a correction but guardian does not want patient at correction. They are attempting to come to an agreement of where the patient should go to get the treatment he needs. Patient is able to mask his symptoms very well but he is unable to be care for himself. No updates at this time. Case discussed with Dr. Silverio Frye Matt PGY1 <Tamera Sawyer V - Last Filed: 10/26/17 23:41> Objective - Vital Signs/Intake and Output Vital Signs (last 24 hours): Temp Pulse Resp BP Pulse Ox 97.9 F 79 20 131/95 H 96 10/26/17 15:00 10/26/17 15:00 10/26/17 15:00 10/26/17 08:00 10/26/17 15:00 Intake and Output: 10/26/17 10/27/17 18:59 06:59 Intake Total 240 Balance 240 - Medications Medications: Current Medications Aspirin (Ecotrin) 81 mg PO DAILY [facility] Last Admin: 10/26/17 10:24 Dose: 81 mg Donepezil HCl (Aricept) 10 mg PO HS [facility] Last Admin: 10/26/17 21:43 Dose: 10 mg Famotidine (Pepcid) 20 mg PO DAILY [facility] Last Admin: 10/26/17 10:24 Dose: 20 mg Folic Acid (Folic Acid) 1 mg PO DAILY [facility] Last Admin: 10/26/17 10:25 Dose: 1 mg Losartan Potassium (Cozaar) 25 mg PO DAILY [facility] Last Admin: 10/26/17 10:24 Dose: 25 mg Memantine (Namenda) 10 mg PO DAILY [facility] Last Admin: 10/26/17 10:24 Dose: 10 mg Rosuvastatin Calcium (Crestor) 2.5 mg PO HS [facility] Last Admin: 10/26/17 21:43 Dose: 2.5 mg - Labs Labs: 10/22/17 17:05 10/22/17 17:05 PT 11.8 SECONDS (9.7-12.2) 06/21/17 22:04 INR 1.1 06/21/17 22:04 APTT 32 SECONDS (21-34) 06/21/17 22:04 Assessment and Plan (1) Leukocytosis Status: Acute (2) Abnormal chest x-ray Status: Chronic (3) Glucose intolerance (impaired glucose tolerance) Status: Chronic (4) Dementia Status: Chronic (5) Hypertension Status: Chronic (6) Anemia Status: Chronic (7) Prophylactic measure Status: Acute Attending/Attestation - Attestation I have personally seen and examined this patient.: Yes I have fully participated in the care of the patient.: Yes I have reviewed all pertinent clinical information, including history, physical exam and plan: Yes Notes (Text): Patient seen, examined and case discussed with medical voucher clerk. Patient seen in the hallway enjoying the view of the outside. He is ambulatory and in good spirits. Patient is awaiting placement. Social work and case management on case. Assessment/Plan (1) Leukocytosis (resolved) Assessment & Plan: * Patient had mild leukocytosis on Sunday. Normalized * patient afebrile. * Blood cultures (10/09/17): no growth after 5 daysX2 * Urine culture (10/09/17): no growth * Chest Xray (10/09/17): no active disease. Specifically no infiltrate. Mild arthrosis * Patient is asymptomatic Status: Acute (2) Dementia, Chronic Assessment & Plan: Family Hx: patient had Alzheimer's Disease at age 71 * Patient was told by a neurologist he has early signs of dementia * Psych consult Dr. Valente --> help appreciated * CT scan of the head is negative * X-ray shows a apical granuloma * Neurology Dr. Manzanares-->help appreciated * Completed EEG 07/07/17 * Discussed patient may complete further workup as outpatient. * negative heavy metal screen * Repeat MRI 07/09: no acute intracranial abnormality. Mild chronic microangiopathic changes and mild age-related global parenchymal volume loss. Please note workup is in prior admission when patient eloped on discharge. * CT scan of the chest is negative and unremarkable * UDS is negative * UA: urine only + for ketones * Brain MRI: Limited motion degraded study. No evidence of acute hemorrhage or infarct. Minor chronic white matter ischemic changes are felt be present. Moderate generalized volume loss. * RPR: nonreactive * HIV: negative * TSH: within normal and repeat within normal * Folate: normal and repeat within normal * B12: normal and repeat within normal * Recommended to patient to follow-up with neurology outpatient and to establish care in the [facility] upon discharge Medications: * Aricept 10mg PO qHS * Namenda 10mg bid * Folic acid 1mg PO daily * Crestor 2.5mg PO HS Status: Chronic (3) Hypertension, Chronic Assessment & Plan: * Stable with medications * Continue to monitor with vital signs * continue home Cozaar 25mg PO daily Status: Chronic (4) Glucose intolerance (impaired glucose tolerance), Chronic Assessment & Plan: * Hgba1c: 5.7 * Will need check in one year for a1c to prevent diabetes Status: Chronic (5) Abnormal chest x-ray Assessment & Plan: * F/u CT chest: unremarkable Status: Chronic (6) Prophylactic measure Assessment & Plan: * GI: Pepcid 20mg PO BID * DVT: SCDs, Patient is ambulatory. * Social work update: Office of Public Guardian MACARIO Hooks ([phone]) on board * F/u Social work and case management in regards to discharge planning
[2017-10-26] MEDS: Rosuvastatin Calcium 2.5 mg Tab PO SCH (21:43)
--- NOTE | 2017-10-27 08:44 | CP.PCM.PN ---
Subjective - Date & Time of Evaluation Date of Evaluation: 10/27/17 Time of Evaluation: 08:30 - Subjective Subjective: Medical Attending Note: Patient seen and examined at bedside. Patient reports sleeping on and off. Denies acute complaints. Awaiting placement. Objective - Vital Signs/Intake and Output Vital Signs (last 24 hours): Temp Pulse Resp BP Pulse Ox 97.5 F L 67 20 126/81 98 10/26/17 23:55 10/26/17 23:55 10/26/17 23:55 10/26/17 23:55 10/26/17 23:55 Intake and Output: 10/27/17 10/27/17 06:59 18:59 Intake Total 720 Balance 720 - Medications Medications: Current Medications Aspirin (Ecotrin) 81 mg PO DAILY [facility] Last Admin: 10/26/17 10:24 Dose: 81 mg Donepezil HCl (Aricept) 10 mg PO HS [facility] Last Admin: 10/26/17 21:43 Dose: 10 mg Famotidine (Pepcid) 20 mg PO DAILY [facility] Last Admin: 10/26/17 10:24 Dose: 20 mg Folic Acid (Folic Acid) 1 mg PO DAILY [facility] Last Admin: 10/26/17 10:25 Dose: 1 mg Losartan Potassium (Cozaar) 25 mg PO DAILY [facility] Last Admin: 10/26/17 10:24 Dose: 25 mg Memantine (Namenda) 10 mg PO DAILY [facility] Last Admin: 10/26/17 10:24 Dose: 10 mg Rosuvastatin Calcium (Crestor) 2.5 mg PO HS [facility] Last Admin: 10/26/17 21:43 Dose: 2.5 mg - Labs Labs: 10/22/17 17:05 10/22/17 17:05 PT 11.8 SECONDS (9.7-12.2) 06/21/17 22:04 INR 1.1 06/21/17 22:04 APTT 32 SECONDS (21-34) 06/21/17 22:04 - Constitutional Appears: Non-toxic, No Acute Distress - Head Exam Head Exam: NORMAL INSPECTION - Eye Exam Eye Exam: EOMI - ENT Exam ENT Exam: Mucous Membranes Moist - Neck Exam Neck Exam: absent: Meningismus, Thyromegaly - Respiratory Exam Respiratory Exam: Clear to Ausculation Bilateral, NORMAL BREATHING PATTERN. absent: Rales, Rhonchi, Wheezes - Cardiovascular Exam Cardiovascular Exam: REGULAR RHYTHM, +S1, +S2 - GI/Abdominal Exam GI & Abdominal Exam: Distended, Soft, Normal Bowel Sounds. absent: Guarding, Rigid, Tenderness, Rebound - Extremities Exam Extremities Exam: absent: Pedal Edema, Tenderness - Neurological Exam Neurological Exam: Alert, Awake, CN II-XII Intact (except CN I not tested, grossly intact), Oriented x3 (not to time, he is aware of who I am, and he is at the hospital) Neuro motor strength exam: Left Upper Extremity: 5, Right Upper Extremity: 5, Left Lower Extremity: 5, Right Lower Extremity: 5 - Psychiatric Exam Psychiatric exam: Normal Affect, Normal Mood - Skin Skin Exam: Dry, Intact, Normal Color, Warm Assessment and Plan (1) Leukocytosis Status: Resolved (2) Abnormal chest x-ray Status: Chronic (3) Glucose intolerance (impaired glucose tolerance) Status: Chronic (4) Dementia Status: Chronic (5) Hypertension Status: Chronic (6) Anemia Status: Chronic (7) Prophylactic measure Status: Acute Attending/Attestation - Attestation I have personally seen and examined this patient.: Yes I have fully participated in the care of the patient.: Yes I have reviewed all pertinent clinical information, including history, physical exam and plan: Yes Notes (Text): Assessment/Plan (1) Dementia, Chronic Assessment & Plan: Family Hx: patient had Alzheimer's Disease at age 71 * Patient was told by a neurologist he has early signs of dementia * Psych consult Dr. Valente --> help appreciated * CT scan of the head is negative * X-ray shows a apical granuloma * Neurology Dr. Manzanares-->help appreciated * Completed EEG 07/07/17 * Discussed patient may complete further workup as outpatient. * negative heavy metal screen * Repeat MRI 07/09: no acute intracranial abnormality. Mild chronic microangiopathic changes and mild age-related global parenchymal volume loss. Please note workup is in prior admission when patient eloped on discharge. * CT scan of the chest is negative and unremarkable * UDS is negative * UA: urine only + for ketones * Brain MRI: Limited motion degraded study. No evidence of acute hemorrhage or infarct. Minor chronic white matter ischemic changes are felt be present. Moderate generalized volume loss. * RPR: nonreactive * HIV: negative * TSH: within normal and repeat within normal * Folate: normal and repeat within normal * B12: normal and repeat within normal * Recommended to patient to follow-up with neurology outpatient and to [facility] upon discharge Medications: * Aricept 10mg PO qHS * Namenda 10mg bid * Folic acid 1mg PO daily * Crestor 2.5mg PO HS Status: Chronic (2) Leukocytosis (resolved) Assessment & Plan: * Patient had mild leukocytosis on Sunday. Normalized * patient afebrile. * Blood cultures (10/09/17): no growth after 5 daysX2 * Urine culture (10/09/17): no growth * Chest Xray (10/09/17): no active disease. Specifically no infiltrate. Mild arthrosis * Patient is asymptomatic Status: Acute (3) Hypertension, Chronic Assessment & Plan: * Stable with medications * Continue to monitor with vital signs * continue home Cozaar 25mg PO daily Status: Chronic (4) Glucose intolerance (impaired glucose tolerance), Chronic Assessment & Plan: * Hgba1c: 5.7 * Will need check in one year for a1c to prevent diabetes Status: Chronic (5) Abnormal chest x-ray Assessment & Plan: * CT chest: unremarkable Status: Chronic (6) Prophylactic measure Assessment & Plan: * GI: Pepcid 20mg PO BID * DVT: SCDs, Patient is ambulatory. * Social work update: [employer]s ([phone]) on board * F/u Social work and case management in regards to discharge planning
[2017-10-27] MEDS: Rosuvastatin Calcium 2.5 mg Tab PO SCH (21:23)
--- NOTE | 2017-10-28 08:41 | CP.PCM.PN ---
Subjective - Date & Time of Evaluation Date of Evaluation: 10/28/17 Time of Evaluation: 08:35 - Subjective Subjective: Medical Attending Note: Patient seen and examined this morning. Patient denies acute complaints. Patient is irritated because he has been here for so long at the hospital. He is usually not in this mood, but it is understandable. Objective - Vital Signs/Intake and Output Vital Signs (last 24 hours): Temp Pulse Resp BP Pulse Ox 98.9 F 87 20 133/79 96 10/28/17 08:06 10/28/17 08:06 10/28/17 08:06 10/28/17 08:06 10/28/17 08:06 Intake and Output: 10/28/17 10/28/17 06:59 18:59 Intake Total 720 Balance 720 - Medications Medications: Current Medications Aspirin (Ecotrin) 81 mg PO DAILY [facility] Last Admin: 10/27/17 10:10 Dose: 81 mg Donepezil HCl (Aricept) 10 mg PO [facility] Last Admin: 10/27/17 21:23 Dose: 10 mg Famotidine (Pepcid) 20 mg PO DAILY [facility] Last Admin: 10/27/17 10:09 Dose: 20 mg Folic Acid (Folic Acid) 1 mg PO DAILY [facility] Last Admin: 10/27/17 10:10 Dose: 1 mg Losartan Potassium (Cozaar) 25 mg PO DAILY [facility] Last Admin: 10/27/17 10:10 Dose: 25 mg Memantine (Namenda) 10 mg PO DAILY [facility] Last Admin: 10/27/17 10:10 Dose: 10 mg Rosuvastatin Calcium (Crestor) 2.5 mg PO [facility] Last Admin: 10/27/17 21:23 Dose: 2.5 mg - Labs Labs: 10/22/17 17:05 10/22/17 17:05 PT 11.8 SECONDS (9.7-12.2) 06/21/17 22:04 INR 1.1 06/21/17 22:04 APTT 32 SECONDS (21-34) 06/21/17 22:04 - Constitutional Appears: Non-toxic, No Acute Distress - Head Exam Head Exam: NORMAL INSPECTION - Eye Exam Eye Exam: EOMI - ENT Exam ENT Exam: Mucous Membranes Moist - Respiratory Exam Respiratory Exam: Clear to Ausculation Bilateral, NORMAL BREATHING PATTERN. absent: Rales, Rhonchi, Wheezes - Cardiovascular Exam Cardiovascular Exam: REGULAR RHYTHM, +S1, +S2 - GI/Abdominal Exam GI & Abdominal Exam: Soft, Normal Bowel Sounds. absent: Distended, Firm, Guarding, Rigid, Tenderness, Rebound - Extremities Exam Extremities Exam: absent: Pedal Edema, Tenderness - Neurological Exam Neurological Exam: Alert, Awake - Psychiatric Exam Additional comments: irritated - Skin Skin Exam: Dry, Normal Color, Warm Assessment and Plan (1) Leukocytosis Status: Resolved (2) Abnormal chest x-ray Status: Chronic (3) Glucose intolerance (impaired glucose tolerance) Status: Chronic (4) Dementia Status: Chronic (5) Hypertension Status: Chronic (6) Anemia Status: Chronic (7) Prophylactic measure Status: Acute Attending/Attestation - Attestation I have personally seen and examined this patient.: Yes I have fully participated in the care of the patient.: Yes I have reviewed all pertinent clinical information, including history, physical exam and plan: Yes Notes (Text): Stable, no change. Awaiting follow-up with social and case management for further updates. Assessment/Plan (1) Dementia, Chronic Assessment & Plan: Family Hx: patient had Alzheimer's Disease at age 71 * Patient was told by a neurologist he has early signs of dementia * Psych consult Dr. Valente --> help appreciated * CT scan of the head is negative * X-ray shows a apical granuloma * Neurology Dr. Manzanares-->help appreciated * Completed EEG 07/07/17 * Discussed patient may complete further workup as outpatient. * negative heavy metal screen * Repeat MRI 07/09: no acute intracranial abnormality. Mild chronic microangiopathic changes and mild age-related global parenchymal volume loss. Please note workup is in prior admission when patient eloped on discharge. * CT scan of the chest is negative and unremarkable * UDS is negative * UA: urine only + for ketones * Brain MRI: Limited motion degraded study. No evidence of acute hemorrhage or infarct. Minor chronic white matter ischemic changes are felt be present. Moderate generalized volume loss. * RPR: nonreactive * HIV: negative * TSH: within normal and repeat within normal * Folate: normal and repeat within normal * B12: normal and repeat within normal * Recommended to patient to follow-up with neurology outpatient and to establish care in the [facility] upon discharge Medications: * Aricept 10mg PO qHS * Namenda 10mg bid * Folic acid 1mg PO daily * Crestor 2.5mg PO HS Status: Chronic (2) Leukocytosis (resolved) Assessment & Plan: * Patient had mild leukocytosis on Sunday. Normalized * patient afebrile. * Blood cultures (10/09/17): no growth after 5 daysX2 * Urine culture (10/09/17): no growth * Chest Xray (10/09/17): no active disease. Specifically no infiltrate. Mild arthrosis * Patient is asymptomatic Status: Acute (3) Hypertension, Chronic Assessment & Plan: * Stable with medications * Continue to monitor with vital signs * continue home Cozaar 25mg PO daily Status: Chronic (4) Glucose intolerance (impaired glucose tolerance), Chronic Assessment & Plan: * Hgba1c: 5.7 * Will need check in one year for a1c to prevent diabetes Status: Chronic (5) Abnormal chest x-ray Assessment & Plan: * CT chest: unremarkable Status: Chronic (6) Prophylactic measure Assessment & Plan: * GI: Pepcid 20mg PO BID * DVT: SCDs, Patient is ambulatory. * Social work update: [employer] ([phone]) on board * F/u Social work and case management in regards to discharge planning
[2017-10-28] MEDS: Rosuvastatin Calcium 2.5 mg Tab PO SCH (21:17)
--- NOTE | 2017-10-29 09:19 | CP.PCM.PN ---
Subjective - Date & Time of Evaluation Date of Evaluation: 10/29/17 Time of Evaluation: 09:15 - Subjective Subjective: Patient was seen and examined at 9:15 AM 10/29/17 358 A Upon FULL ROS NO dysphagia/odynopahgia NO soreness in throat NO cough NO sinus/nasal congestion NO fever/chills NO muscle aches/pains NO joint pain NO chest pain/palpations NO SOB NO abdominal pain NO n/v/d/c NO burning pain with urination NO CHAMPION NO lightheadedness/dizziness NO paresthesias Exam: General: AAOX3, NAD HEENT: NCA, EOMI, PERRLA, NO cervical/supraclavicular/submandibular lymphadenopathy, NO pharyngeal erythema/exudate, Nasal Turbinates are nonerythematous/nonedematous, Oral Mucosa is moist Cardio: NS1 and NS2, NO M/R/G Resp: CTA B/L, NO R/R/W GI: BSx4, Soft, NT, NO HSM, NO guarding/rebound tenderness Ext: Pulses are strong and equal, Capillary Refill is 2 seconds, NO edema Neuro: CN II through XII are grossly intact Assessment and Plan: 1). Dimentia: Aricept, Namenda, Folic Acid, Crestor, ASA 2). Anemia: resolved 3). Hypokalemia: resolved 4). Abnormal Chest X Ray: CT Chest was unremarkable 5). Impaired Fasting Glucose: HgBA1C was 5.7 6). HTN: Cozaar 7). Prophylaxis: Pepcid, SCD, Patient is continuing to walk every 1 to 2 hours on the medical floor (this has been witnessed by me everyday) Awaiting placement. Objective - Vital Signs/Intake and Output Vital Signs (last 24 hours): Temp Pulse Resp BP Pulse Ox 97.6 F 86 20 115/78 98 10/29/17 08:27 10/29/17 08:27 10/29/17 08:27 10/29/17 08:27 10/29/17 08:27 Intake and Output: 10/29/17 10/29/17 06:59 18:59 Intake Total 600 Balance 600 - Medications Medications: Current Medications Aspirin (Ecotrin) 81 mg PO DAILY [facility] Last Admin: 10/28/17 09:28 Dose: 81 mg Donepezil HCl (Aricept) 10 mg PO HS [facility] Last Admin: 10/28/17 21:17 Dose: 10 mg Famotidine (Pepcid) 20 mg PO DAILY [facility] Last Admin: 10/28/17 09:28 Dose: 20 mg Folic Acid (Folic Acid) 1 mg PO DAILY [facility] Last Admin: 10/28/17 09:28 Dose: 1 mg Losartan Potassium (Cozaar) 25 mg PO DAILY [facility] Last Admin: 10/28/17 09:28 Dose: 25 mg Memantine (Namenda) 10 mg PO DAILY [facility] Last Admin: 10/28/17 09:28 Dose: 10 mg Rosuvastatin Calcium (Crestor) 2.5 mg PO HS [facility] Last Admin: 10/28/17 21:17 Dose: 2.5 mg - Labs Labs: 10/22/17 17:05 10/22/17 17:05 PT 11.8 SECONDS (9.7-12.2) 06/21/17 22:04 INR 1.1 06/21/17 22:04 APTT 32 SECONDS (21-34) 06/21/17 22:04
[2017-10-29 16:44] LABS: BASO % 0.3 % (0.0-2.0); EOS % 0.4 % (0.0-4.0); HEMOGLOBIN 14.5 g/dL (12.0-18.0); LYMPH # 1.5 K/uL (1.0-4.3); LYMPH % 19.2 % (20.0-40.0); MEAN CELL VOLUME 91.1 fL (80.0-94.0); MEAN CORPUSCULAR HEMOGLOBIN 31.9 pg (27.0-31.0); MEAN PLATELET VOLUME 6.8 fL (7.2-11.7); MONO # 0.7 K/uL (0.0-0.8); MONO % 9.2 % (0.0-10.0); NEUT # 5.6 K/uL (1.8-7.0); NEUT % 70.9 % (50.0-75.0); RBC 4.55 Mil/uL (4.40-5.90); RED CELL DISTRIBUTION WIDTH 13.1 % (11.5-14.5)
[2017-10-29 17:15] LABS: ALB/GLOB RATIO 1.2 (1.0-2.1); ALBUMIN 3.9 g/dL (3.5-5.0); ALT/SGPT 46 U/L (21-72); AST/SGOT 34 U/L (17-59); BLOOD UREA NITROGEN 12 mg/dL (9-20); CALCIUM 8.7 mg/dl (8.6-10.4); GFR AFRICAN-AMERICAN > 60; GFR NON-AFRICAN AMERICAN > 60
[2017-10-29] MEDS: Rosuvastatin Calcium 2.5 mg Tab PO SCH (21:36)
--- NOTE | 2017-10-30 19:58 | CP.PCM.PN ---
Subjective - Date & Time of Evaluation Date of Evaluation: 10/30/17 Time of Evaluation: 16:15 - Subjective Subjective: Patient was seen and examined at 4:15 AM 10/30/17 358 A Upon FULL ROS NO dysphagia/odynopahgia NO soreness in throat NO cough NO sinus/nasal congestion NO fever/chills NO muscle aches/pains NO joint pain NO chest pain/palpations NO SOB NO abdominal pain NO n/v/d/c NO burning pain with urination NO CHAMPION NO lightheadedness/dizziness NO paresthesias Exam: General: AAOX3, NAD HEENT: NCA, EOMI, PERRLA, NO cervical/supraclavicular/submandibular lymphadenopathy, NO pharyngeal erythema/exudate, Nasal Turbinates are nonerythematous/nonedematous, Oral Mucosa is moist Cardio: NS1 and NS2, NO M/R/G Resp: CTA B/L, NO R/R/W GI: BSx4, Soft, NT, NO HSM, NO guarding/rebound tenderness Ext: Pulses are strong and equal, Capillary Refill is 2 seconds, NO edema Neuro: CN II through XII are grossly intact Assessment and Plan: 1). Dimentia: Aricept, Namenda, Folic Acid, Crestor, ASA 2). Anemia: resolved 3). Hypokalemia: resolved 4). Abnormal Chest X Ray: CT Chest was unremarkable 5). Impaired Fasting Glucose: HgBA1C was 5.7 6). HTN: Cozaar 7). Prophylaxis: Pepcid, SCD, Patient is continuing to walk every 1 to 2 hours on the medical floor (this has been witnessed by me everyday) Awaiting placement. Objective - Vital Signs/Intake and Output Vital Signs (last 24 hours): Temp Pulse Resp BP Pulse Ox 97.6 F 79 20 131/83 96 10/30/17 15:00 10/30/17 15:00 10/30/17 15:00 10/30/17 15:00 10/30/17 15:00 Intake and Output: 10/30/17 10/31/17 18:59 06:59 Intake Total 240 Balance 240 - Medications Medications: Current Medications Aspirin (Ecotrin) 81 mg PO DAILY [facility] Last Admin: 10/30/17 09:03 Dose: 81 mg Famotidine (Pepcid) 20 mg PO DAILY [facility] Last Admin: 10/30/17 09:03 Dose: 20 mg Folic Acid (Folic Acid) 1 mg PO DAILY [facility] Last Admin: 10/30/17 09:03 Dose: 1 mg Losartan Potassium (Cozaar) 25 mg PO DAILY [facility] Last Admin: 10/30/17 09:03 Dose: 25 mg Memantine (Namenda) 10 mg PO DAILY [facility] Last Admin: 10/30/17 09:03 Dose: 10 mg - Labs Labs: 10/29/17 16:36 10/29/17 16:36 PT 11.8 SECONDS (9.7-12.2) 06/21/17 22:04 INR 1.1 06/21/17 22:04 APTT 32 SECONDS (21-34) 06/21/17 22:04
[2017-10-30] MEDS: Rosuvastatin Calcium 2.5 mg Tab PO SCH (21:27)
--- NOTE | 2017-10-31 06:15 | CP.PCM.PN ---
<Uday Gutierrez - Last Filed: 10/31/17 16:52> Subjective - Date & Time of Evaluation Date of Evaluation: 10/31/17 Time of Evaluation: 06:13 - Subjective Subjective: PGY1 Medicine Note for Dr. Barbara Damon Patient seen and examined this morning at bedside. No acute events over night. Patient is awake laying in bed watching television. He is in good spirits but states he is hopeful to get out of the hospital soon because he is bored. He understands he is not allowed to leave on his own. He has no complaints at this time. Denies fevers, chills, nausea, vomiting, diarrhea, constipation, chest pain, shortness of breath, abdominal pain, dysuria, or headaches Objective - Vital Signs/Intake and Output Vital Signs (last 24 hours): Temp Pulse Resp BP Pulse Ox 97.1 F L 81 20 133/81 98 10/30/17 23:36 10/30/17 23:36 10/30/17 23:36 10/30/17 23:36 10/30/17 23:36 Intake and Output: 10/30/17 10/31/17 18:59 06:59 Intake Total 240 350 Balance 240 350 - Medications Medications: Current Medications Aspirin (Ecotrin) 81 mg PO DAILY [facility] Last Admin: 10/30/17 09:03 Dose: 81 mg Donepezil HCl (Aricept) 10 mg PO [facility] Last Admin: 10/30/17 21:27 Dose: 10 mg Famotidine (Pepcid) 20 mg PO DAILY [facility] Last Admin: 10/30/17 09:03 Dose: 20 mg Folic Acid (Folic Acid) 1 mg PO DAILY [facility] Last Admin: 10/30/17 09:03 Dose: 1 mg Losartan Potassium (Cozaar) 25 mg PO DAILY [facility] Last Admin: 10/30/17 09:03 Dose: 25 mg Memantine (Namenda) 10 mg PO DAILY [facility] Last Admin: 10/30/17 09:03 Dose: 10 mg Rosuvastatin Calcium (Crestor) 2.5 mg PO HS [facility] Last Admin: 10/30/17 21:27 Dose: 2.5 mg - Labs Labs: 10/29/17 16:36 10/29/17 16:36 PT 11.8 SECONDS (9.7-12.2) 06/21/17 22:04 INR 1.1 06/21/17 22:04 APTT 32 SECONDS (21-34) 06/21/17 22:04 - Constitutional Appears: Non-toxic, No Acute Distress - Head Exam Head Exam: ATRAUMATIC, NORMOCEPHALIC - Eye Exam Eye Exam: EOMI, Normal appearance. absent: Scleral icterus - ENT Exam ENT Exam: Mucous Membranes Moist - Respiratory Exam Respiratory Exam: Clear to Ausculation Bilateral, NORMAL BREATHING PATTERN. absent: Accessory Muscle Use, Rales, Rhonchi, Wheezes, Respiratory Distress - Cardiovascular Exam Cardiovascular Exam: REGULAR RHYTHM, +S1, +S2 - GI/Abdominal Exam GI & Abdominal Exam: Soft, Normal Bowel Sounds. absent: Distended, Firm, Guarding, Rigid, Tenderness - Extremities Exam Extremities Exam: Normal Inspection. absent: Calf Tenderness, Pedal Edema - Neurological Exam Neurological Exam: Alert, Awake, CN II-XII Intact, Normal Gait, Oriented x3 Neuro motor strength exam: Left Upper Extremity: 5, Right Upper Extremity: 5, Left Lower Extremity: 5, Right Lower Extremity: 5 - Psychiatric Exam Psychiatric exam: Normal Affect, Normal Mood - Skin Skin Exam: Dry, Warm Assessment and Plan - Assessment and Plan (Free Text) Plan: Dementia Family Hx: patient's family member had Alzheimer's Disease and at age 70 * Patient was told by a neurologist he has early signs of dementia * Psych consult Dr. Valente --> help appreciated * CT scan of the head is negative * X-ray (06/18/17) shows a left apical granuloma * Repeat chest xra y(08/30/17): no active disease * Neurology Dr. Manzanares-->help appreciated * Completed EEG 07/07/17 * Discussed patient may complete further workup as outpatient. * negative heavy metal screen * Repeat MRI 07/09: no acute intracranial abnormality. Mild chronic microangiopathic changes and mild age-related global parenchymal volume loss. Please note workup is in prior admission when patient eloped on discharge. * CT scan of the chest is negative and unremarkable * UDS is negative * UA: urine only + for ketones * Brain MRI: Limited motion degraded study. No evidence of acute hemorrhage or infarct. Minor chronic white matter ischemic changes are felt be present. Moderate generalized volume loss. * RPR: nonreactive * HIV: negative * TSH: within normal and repeat within normal * Folate: normal and repeat within normal * B12: normal and repeat within normal * Recommended to patient to follow-up with neurology outpatient and to establish care in the [facility] upon discharge Medications: * Aricept 10mg PO qHS * Namenda 10mg bid * Folic acid 1mg PO daily * Crestor 2.5mg PO HS * Aspirin 81mg PO daily Leukocytosis - resolved WBC 12.3 on 10/08/17 Afebrile, asymptomatic Continue to monitor AM labs Blood cx: negative Urine cx: negative CXR (10/09/17): no active disease Resolved--> WBC 7.0 on 10/10/17 Hypertension Stable with medications Continue to monitor with vital signs continue home Cozaar 25mg PO daily Glucose intolerance (impaired glucose tolerance) Hgba1c: 5.7 * Will recheck in one year Abnormal chest x-ray CT chest (06/18/17): unremarkable Chest Xray (08/30/17): no active disease CXR (10/09/17): no active disease Prophylactic measure GI: Pepcid 20mg PO Daily DVT: SCDs, Patient is ambulatory; walks Q1-2hrs Disposition: Appointed Acid Changer: Court appointed, Mr. Los Henry, [address] [place] [address] ; Awaiting Office of Public Guardianship Academic Adviser Lv Hooks [phone] to arrange for permanent placement for patient. Social work has patient approved for a assisted but guardian does not want patient at assisted. They are attempting to come to an agreement of where the patient should go to get the treatment he needs. Patient is able to mask his symptoms very well but he is unable to be care for himself. No updates at this time. Case discussed with Dr. Barbara Garcian PGY1 <Gary Damon - Last Filed: 10/31/17 18:39> Objective - Vital Signs/Intake and Output Vital Signs (last 24 hours): Temp Pulse Resp BP Pulse Ox 97.8 F 85 20 130/87 96 10/31/17 16:22 10/31/17 16:22 10/31/17 16:22 10/31/17 16:22 10/31/17 16:22 Intake and Output: 10/31/17 10/31/17 06:59 18:59 Intake Total 550 880 Balance 550 880 - Medications Medications: Current Medications Aspirin (Ecotrin) 81 mg PO DAILY [facility] Last Admin: 10/31/17 09:29 Dose: 81 mg Donepezil HCl (Aricept) 10 mg PO HS [facility] Last Admin: 10/30/17 21:27 Dose: 10 mg Famotidine (Pepcid) 20 mg PO DAILY [facility] Last Admin: 10/31/17 09:29 Dose: 20 mg Folic Acid (Folic Acid) 1 mg PO DAILY [facility] Last Admin: 10/31/17 09:29 Dose: 1 mg Losartan Potassium (Cozaar) 25 mg PO DAILY [facility] Last Admin: 10/31/17 09:29 Dose: 25 mg Memantine (Namenda) 10 mg PO DAILY [facility] Last Admin: 10/31/17 09:29 Dose: 10 mg Rosuvastatin Calcium (Crestor) 2.5 mg PO [facility] Last Admin: 10/30/17 21:27 Dose: 2.5 mg - Labs Labs: 10/29/17 16:36 10/29/17 16:36 PT 11.8 SECONDS (9.7-12.2) 06/21/17 22:04 INR 1.1 06/21/17 22:04 APTT 32 SECONDS (21-34) 06/21/17 22:04 Attending/Attestation - Attestation I have personally seen and examined this patient.: Yes I have fully participated in the care of the patient.: Yes I have reviewed all pertinent clinical information, including history, physical exam and plan: Yes Notes (Text): 10/31/17 18:38 Patient was seen and examined at 11:15 AM 10/31/17 358 A Upon FULL ROS NO dysphagia/odynopahgia NO soreness in throat NO cough NO sinus/nasal congestion NO fever/chills NO muscle aches/pains NO joint pain NO chest pain/palpations NO SOB NO abdominal pain NO n/v/d/c NO burning pain with urination NO CHAMPION NO lightheadedness/dizziness NO paresthesias Exam: General: AAOX3, NAD HEENT: NCA, EOMI, PERRLA, NO cervical/supraclavicular/submandibular lymphadenopathy, NO pharyngeal erythema/exudate, Nasal Turbinates are nonerythematous/nonedematous, Oral Mucosa is moist Cardio: NS1 and NS2, NO M/R/G Resp: CTA B/L, NO R/R/W GI: BSx4, Soft, NT, NO HSM, NO guarding/rebound tenderness Ext: Pulses are strong and equal, Capillary Refill is 2 seconds, NO edema Neuro: CN II through XII are grossly intact Assessment and Plan: 1). Hx Dimentia: Aricept, Namenda, Folic Acid, Crestor, ASA 2). Hx Anemia: resolved 3). Hx Hypokalemia: resolved 4). Hx Abnormal Chest X Ray: CT Chest was unremarkable 5). Hx Impaired Fasting Glucose: HgBA1C was 5.7 6). Hx HTN: Cozaar 7). Prophylaxis: Pepcid, SCD, Patient is continuing to walk every 1 to 2 hours on the medical floor (this has been witnessed by me everyday) Awaiting placement. Gary Damon D.O.
[2017-10-31] MEDS: Rosuvastatin Calcium 2.5 mg Tab PO SCH (21:38)
--- NOTE | 2017-11-01 09:09 | CP.PCM.PN ---
Subjective - Date & Time of Evaluation Date of Evaluation: 11/01/17 Time of Evaluation: 08:30 - Subjective Subjective: Hospitalist Progress Note Patient was seen and examined at 8:30 AM 11/01/17 358 A Upon FULL ROS NO dysphagia/odynopahgia NO soreness in throat NO cough NO sinus/nasal congestion NO fever/chills NO muscle aches/pains NO joint pain NO chest pain/palpations NO SOB NO abdominal pain NO n/v/d/c NO burning pain with urination NO CHAMPION NO lightheadedness/dizziness NO paresthesias Exam: General: AAOX3, NAD HEENT: NCA, EOMI, PERRLA, NO cervical/supraclavicular/submandibular lymphadenopathy, NO pharyngeal erythema/exudate, Nasal Turbinates are nonerythematous/nonedematous, Oral Mucosa is moist Cardio: NS1 and NS2, NO M/R/G Resp: CTA B/L, NO R/R/W GI: BSx4, Soft, NT, NO HSM, NO guarding/rebound tenderness Ext: Pulses are strong and equal, Capillary Refill is 2 seconds, NO edema Neuro: CN II through XII are grossly intact Assessment and Plan: 1). Hx Dimentia: Aricept, Namenda, Folic Acid, Crestor, ASA 2). Hx Anemia: resolved 3). Hx Hypokalemia: resolved 4). Hx Abnormal Chest X Ray: CT Chest was unremarkable 5). Hx Impaired Fasting Glucose: HgBA1C was 5.7 6). Hx HTN: Cozaar 7). Prophylaxis: Pepcid, SCD, Patient is continuing to walk every 1 to 2 hours on the medical floor Awaiting placement. Objective - Vital Signs/Intake and Output Vital Signs (last 24 hours): Temp Pulse Resp BP Pulse Ox 97.9 F 81 20 135/82 98 11/01/17 00:33 11/01/17 00:33 11/01/17 00:33 11/01/17 00:33 11/01/17 00:33 Intake and Output: 11/01/17 11/01/17 06:59 18:59 Intake Total 700 Balance 700 - Medications Medications: Current Medications Aspirin (Ecotrin) 81 mg PO DAILY [facility] Last Admin: 10/31/17 09:29 Dose: 81 mg Donepezil HCl (Aricept) 10 mg PO HS [facility] Last Admin: 10/31/17 21:38 Dose: 10 mg Famotidine (Pepcid) 20 mg PO DAILY [facility] Last Admin: 10/31/17 09:29 Dose: 20 mg Folic Acid (Folic Acid) 1 mg PO DAILY [facility] Last Admin: 10/31/17 09:29 Dose: 1 mg Losartan Potassium (Cozaar) 25 mg PO DAILY [facility] Last Admin: 10/31/17 09:29 Dose: 25 mg Memantine (Namenda) 10 mg PO DAILY [facility] Last Admin: 10/31/17 09:29 Dose: 10 mg Rosuvastatin Calcium (Crestor) 2.5 mg PO HS [facility] Last Admin: 10/31/17 21:38 Dose: 2.5 mg - Labs Labs: 10/29/17 16:36 10/29/17 16:36 PT 11.8 SECONDS (9.7-12.2) 06/21/17 22:04 INR 1.1 06/21/17 22:04 APTT 32 SECONDS (21-34) 06/21/17 22:04
[2017-11-01] MEDS: Rosuvastatin Calcium 2.5 mg Tab PO SCH (21:29)
--- NOTE | 2017-11-02 07:26 | CP.PCM.PN ---
Subjective - Date & Time of Evaluation Date of Evaluation: 11/02/17 Time of Evaluation: 07:26 - Subjective Subjective: PGY1 Medicine Note for Dr. Barbara Damon Patient seen and examined this morning at bedside. No acute events over night. Patient is awake and walking around the hallways. He is smiling, stating that he feels great and has no complaints other than he would like to go home. Denies fevers, chills, nausea, vomiting, diarrhea, constipation, chest pain, shortness of breath, abdominal pain, dysuria, or headaches Objective - Vital Signs/Intake and Output Vital Signs (last 24 hours): Temp Pulse Resp BP Pulse Ox 98 F 88 18 111/76 99 11/01/17 23:17 11/01/17 23:17 11/01/17 23:17 11/01/17 23:17 11/01/17 23:17 Intake and Output: 11/02/17 11/02/17 06:59 18:59 Intake Total 500 Balance 500 - Medications Medications: Current Medications Aspirin (Ecotrin) 81 mg PO DAILY [facility] Last Admin: 11/01/17 09:48 Dose: 81 mg Donepezil HCl (Aricept) 10 mg PO HS [facility] Last Admin: 11/01/17 21:29 Dose: 10 mg Famotidine (Pepcid) 20 mg PO DAILY [facility] Last Admin: 11/01/17 09:48 Dose: 20 mg Folic Acid (Folic Acid) 1 mg PO DAILY [facility] Last Admin: 11/01/17 09:48 Dose: 1 mg Losartan Potassium (Cozaar) 25 mg PO DAILY [facility] Last Admin: 11/01/17 09:48 Dose: 25 mg Memantine (Namenda) 10 mg PO DAILY [facility] Last Admin: 11/01/17 09:48 Dose: 10 mg Rosuvastatin Calcium (Crestor) 2.5 mg PO HS [facility] Last Admin: 11/01/17 21:29 Dose: 2.5 mg - Labs Labs: 10/29/17 16:36 10/29/17 16:36 PT 11.8 SECONDS (9.7-12.2) 06/21/17 22:04 INR 1.1 06/21/17 22:04 APTT 32 SECONDS (21-34) 06/21/17 22:04 - Constitutional Appears: Non-toxic, No Acute Distress - Head Exam Head Exam: ATRAUMATIC, NORMOCEPHALIC - Eye Exam Eye Exam: EOMI, Normal appearance - ENT Exam ENT Exam: Mucous Membranes Moist - Respiratory Exam Respiratory Exam: Clear to Ausculation Bilateral, NORMAL BREATHING PATTERN. absent: Accessory Muscle Use, Rales, Rhonchi, Wheezes, Respiratory Distress - Cardiovascular Exam Cardiovascular Exam: REGULAR RHYTHM, +S1, +S2 - GI/Abdominal Exam GI & Abdominal Exam: Soft, Normal Bowel Sounds. absent: Distended, Firm, Guarding, Rigid, Tenderness - Extremities Exam Extremities Exam: absent: Calf Tenderness, Pedal Edema - Neurological Exam Neurological Exam: Alert, Awake, Oriented x3 - Psychiatric Exam Psychiatric exam: Normal Affect, Normal Mood - Skin Skin Exam: Dry, Warm Assessment and Plan - Assessment and Plan (Free Text) Plan: Dementia Family Hx: patient's family member had Alzheimer's Disease and at age 70 * Patient was told by a neurologist he has early signs of dementia * Psych consult Dr. Valente --> help appreciated * CT scan of the head is negative * X-ray (06/18/17) shows a left apical granuloma * Repeat chest xra y(08/30/17): no active disease * Neurology Dr. Manzanares-->help appreciated * Completed EEG 07/07/17 * Discussed patient may complete further workup as outpatient. * negative heavy metal screen * Repeat MRI 07/09: no acute intracranial abnormality. Mild chronic microangiopathic changes and mild age-related global parenchymal volume loss. Please note workup is in prior admission when patient eloped on discharge. * CT scan of the chest is negative and unremarkable * UDS is negative * UA: urine only + for ketones * Brain MRI: Limited motion degraded study. No evidence of acute hemorrhage or infarct. Minor chronic white matter ischemic changes are felt be present. Moderate generalized volume loss. * RPR: nonreactive * HIV: negative * TSH: within normal and repeat within normal * Folate: normal and repeat within normal * B12: normal and repeat within normal * Recommended to patient to follow-up with neurology outpatient and to establish care in the [facility] upon discharge Medications: * Aricept 10mg PO qHS * Namenda 10mg bid * Folic acid 1mg PO daily * Crestor 2.5mg PO HS * Aspirin 81mg PO daily Leukocytosis - resolved WBC 12.3 on 10/08/17 Afebrile, asymptomatic Continue to monitor AM labs Blood cx: negative Urine cx: negative CXR (10/09/17): no active disease Resolved--> WBC 7.0 on 10/10/17 Hypertension Stable with medications Continue to monitor with vital signs continue home Cozaar 25mg PO daily Glucose intolerance (impaired glucose tolerance) Hgba1c: 5.7 * Will recheck in one year Abnormal chest x-ray CT chest (06/18/17): unremarkable Chest Xray (08/30/17): no active disease CXR (10/09/17): no active disease Prophylactic measure GI: Pepcid 20mg PO Daily DVT: SCDs, Patient is ambulatory; walks Q1-2hrs Disposition: Appointed Overcoil Stepper: Court appointed, Mr. Los Luke Johanasourav, [address] [facility] [address] [place] [address] ; Awaiting Office of Public Guardianship Salary Manager Lv Hooks [phone] to arrange for permanent placement for patient. Social work has patient approved for a snf but guardian does not want patient at snf. They are attempting to come to an agreement of where the patient should go to get the treatment he needs. Patient is able to mask his symptoms very well but he is unable to be care for himself. No updates at this time. Case discussed with Dr. Barbara Frye Matt PGY1
[2017-11-02] MEDS: Rosuvastatin Calcium 2.5 mg Tab PO SCH (21:37)
[2017-11-03] MEDS: Rosuvastatin Calcium 2.5 mg Tab PO SCH (21:40)
--- NOTE | 2017-11-04 14:13 | CP.PCM.PN ---
Subjective - Date & Time of Evaluation Date of Evaluation: 11/04/17 Time of Evaluation: 14:00 - Subjective Subjective: Hospitalist Progress Note Patient was seen and examined at 2:00 PM 11/04/17 358 A Upon FULL ROS NO dysphagia/odynopahgia NO soreness in throat NO cough NO sinus/nasal congestion NO fever/chills NO muscle aches/pains NO joint pain NO chest pain/palpations NO SOB NO abdominal pain NO n/v/d/c NO burning pain with urination NO CHAMPION NO lightheadedness/dizziness NO paresthesias Exam: General: AAOX3, NAD HEENT: NCA, EOMI, PERRLA, NO cervical/supraclavicular/submandibular lymphadenopathy, NO pharyngeal erythema/exudate, Nasal Turbinates are nonerythematous/nonedematous, Oral Mucosa is moist Cardio: NS1 and NS2, NO M/R/G Resp: CTA B/L, NO R/R/W GI: BSx4, Soft, NT, NO HSM, NO guarding/rebound tenderness Ext: Pulses are strong and equal, Capillary Refill is 2 seconds, NO edema Neuro: CN II through XII are grossly intact Assessment and Plan: 1). Hx Dimentia: Aricept, Namenda, Folic Acid, Crestor, ASA 2). Hx Anemia: resolved 3). Hx Hypokalemia: resolved 4). Hx Abnormal Chest X Ray: CT Chest was unremarkable 5). Hx Impaired Fasting Glucose: HgBA1C was 5.7 6). Hx HTN: Cozaar 7). Prophylaxis: Pepcid, SCD, Patient is continuing to walk every 1 to 2 hours on the medical floor Awaiting placement. Objective - Vital Signs/Intake and Output Vital Signs (last 24 hours): Temp Pulse Resp BP Pulse Ox 97.5 F L 81 20 124/89 97 11/04/17 08:40 11/04/17 08:40 11/04/17 08:40 11/04/17 08:40 11/04/17 08:40 Intake and Output: 11/04/17 11/04/17 06:59 18:59 Intake Total 250 Balance 250 - Medications Medications: Current Medications Aspirin (Ecotrin) 81 mg PO DAILY [facility] Last Admin: 11/04/17 10:52 Dose: 81 mg Donepezil HCl (Aricept) 10 mg PO HS [facility] Last Admin: 11/03/17 21:40 Dose: 10 mg Famotidine (Pepcid) 20 mg PO DAILY [facility] Last Admin: 11/04/17 10:52 Dose: 20 mg Folic Acid (Folic Acid) 1 mg PO DAILY [facility] Last Admin: 11/04/17 10:52 Dose: 1 mg Losartan Potassium (Cozaar) 25 mg PO DAILY [facility] Last Admin: 11/04/17 10:52 Dose: 25 mg Memantine (Namenda) 10 mg PO DAILY [facility] Last Admin: 11/04/17 10:52 Dose: 10 mg Rosuvastatin Calcium (Crestor) 2.5 mg PO HS [facility] Last Admin: 11/03/17 21:40 Dose: 2.5 mg - Labs Labs: 10/29/17 16:36 10/29/17 16:36 PT 11.8 SECONDS (9.7-12.2) 06/21/17 22:04 INR 1.1 06/21/17 22:04 APTT 32 SECONDS (21-34) 06/21/17 22:04
[2017-11-04] MEDS: Rosuvastatin Calcium 2.5 mg Tab PO SCH (21:24)
--- NOTE | 2017-11-05 09:02 | CP.PCM.PN ---
Subjective - Date & Time of Evaluation Date of Evaluation: 11/05/17 Time of Evaluation: 09:01 - Subjective Subjective: PGY1 Medicine Note for Dr. Donohue Patient seen and examined at bedside this morning. No acute events over night. Patient states he is doing well and has no complaints at this time. He has no fevers, chills, nausea, vomiting, diarrhea, constipation, chest pain, shortness of breath, abdominal pain, dysuria, or headaches Objective - Vital Signs/Intake and Output Vital Signs (last 24 hours): Temp Pulse Resp BP Pulse Ox 97.8 F 77 20 118/81 96 11/04/17 23:30 11/04/17 23:30 11/04/17 23:30 11/04/17 23:30 11/04/17 23:30 Intake and Output: 11/05/17 11/05/17 06:59 18:59 Intake Total 400 240 Balance 400 240 - Medications Medications: Current Medications Aspirin (Ecotrin) 81 mg PO DAILY [facility] Last Admin: 11/04/17 10:52 Dose: 81 mg Donepezil HCl (Aricept) 10 mg PO [facility] Last Admin: 11/04/17 21:24 Dose: 10 mg Famotidine (Pepcid) 20 mg PO DAILY [facility] Last Admin: 11/04/17 10:52 Dose: 20 mg Folic Acid (Folic Acid) 1 mg PO DAILY [facility] Last Admin: 11/04/17 10:52 Dose: 1 mg Losartan Potassium (Cozaar) 25 mg PO DAILY [facility] Last Admin: 11/04/17 10:52 Dose: 25 mg Memantine (Namenda) 10 mg PO DAILY [facility] Last Admin: 11/04/17 10:52 Dose: 10 mg Rosuvastatin Calcium (Crestor) 2.5 mg PO [facility] Last Admin: 11/04/17 21:24 Dose: 2.5 mg - Labs Labs: 10/29/17 16:36 10/29/17 16:36 PT 11.8 SECONDS (9.7-12.2) 06/21/17 22:04 INR 1.1 06/21/17 22:04 APTT 32 SECONDS (21-34) 06/21/17 22:04 - Constitutional Appears: Non-toxic, No Acute Distress - Head Exam Head Exam: ATRAUMATIC, NORMOCEPHALIC - Eye Exam Eye Exam: EOMI - ENT Exam ENT Exam: Mucous Membranes Moist - Neurological Exam Neurological Exam: Alert, Awake, Normal Gait, Oriented x3 Neuro motor strength exam: Left Upper Extremity: 5, Right Upper Extremity: 5, Left Lower Extremity: 5, Right Lower Extremity: 5 - Psychiatric Exam Psychiatric exam: Normal Affect, Normal Mood - Skin Skin Exam: Dry, Warm Assessment and Plan - Assessment and Plan (Free Text) Plan: Dementia Family Hx: patient's family member had Alzheimer's Disease and at age 70 * Patient was told by a neurologist he has early signs of dementia * Psych consult Dr. Valente --> help appreciated * CT scan of the head is negative * X-ray (06/18/17) shows a left apical granuloma * Repeat chest xra y(08/30/17): no active disease * Neurology Dr. Manzanares-->help appreciated * Completed EEG 07/07/17 * Discussed patient may complete further workup as outpatient. * negative heavy metal screen * Repeat MRI 07/09: no acute intracranial abnormality. Mild chronic microangiopathic changes and mild age-related global parenchymal volume loss. Please note workup is in prior admission when patient eloped on discharge. * CT scan of the chest is negative and unremarkable * UDS is negative * UA: urine only + for ketones * Brain MRI: Limited motion degraded study. No evidence of acute hemorrhage or infarct. Minor chronic white matter ischemic changes are felt be present. Moderate generalized volume loss. * RPR: nonreactive * HIV: negative * TSH: within normal and repeat within normal * Folate: normal and repeat within normal * B12: normal and repeat within normal * Recommended to patient to follow-up with neurology outpatient and to establish care in the [facility] upon discharge Medications: * Aricept 10mg PO qHS * Namenda 10mg bid * Folic acid 1mg PO daily * Crestor 2.5mg PO HS * Aspirin 81mg PO daily Leukocytosis - resolved WBC 12.3 on 10/08/17 Afebrile, asymptomatic Continue to monitor AM labs Blood cx: negative Urine cx: negative CXR (10/09/17): no active disease Resolved--> WBC 7.0 on 10/10/17 Hypertension Stable with medications Continue to monitor with vital signs continue home Cozaar 25mg PO daily Glucose intolerance (impaired glucose tolerance) Hgba1c: 5.7 * Will recheck in one year Abnormal chest x-ray CT chest (06/18/17): unremarkable Chest Xray (08/30/17): no active disease CXR (10/09/17): no active disease Prophylactic measure GI: Pepcid 20mg PO Daily DVT: SCDs, Patient is ambulatory; walks Q1-2hrs Disposition: Appointed Bacon Skinner: Court appointed, Mr. Los Henry, [address] [place] [address] ; Awaiting Office of Public Guardianship [employer] Inspector Lv Hooks [phone] to arrange for permanent placement for patient. Social work has patient approved for a intermediate but guardian does not want patient at intermediate. They are attempting to come to an agreement of where the patient should go to get the treatment he needs. Patient is able to mask his symptoms very well but he is unable to be care for himself. No updates at this time. Case discussed with Dr. Jayde Frye Matt PGY1
[2017-11-05 16:38] LABS: BASO % 0.3 % (0.0-2.0); EOS % 0.6 % (0.0-4.0); HEMOGLOBIN 14.1 g/dL (12.0-18.0); LYMPH # 1.8 K/uL (1.0-4.3); LYMPH % 22.4 % (20.0-40.0); MEAN CELL VOLUME 91.1 fL (80.0-94.0); MEAN PLATELET VOLUME 6.7 fL (7.2-11.7); MONO # 0.7 K/uL (0.0-0.8); MONO % 8.3 % (0.0-10.0); NEUT # 5.6 K/uL (1.8-7.0); NEUT % 68.4 % (50.0-75.0); RBC 4.53 Mil/uL (4.40-5.90); RED CELL DISTRIBUTION WIDTH 13.2 % (11.5-14.5); WHITE BLOOD COUNT 8.2 K/uL (4.8-10.8)
[2017-11-05 16:52] LABS: ALB/GLOB RATIO 1.3 (1.0-2.1); ALBUMIN 3.6 g/dL (3.5-5.0); ALT/SGPT 46 U/L (21-72); AST/SGOT 26 U/L (17-59); BLOOD UREA NITROGEN 11 mg/dL (9-20); CALCIUM 8.6 mg/dl (8.6-10.4); GFR AFRICAN-AMERICAN > 60; GFR NON-AFRICAN AMERICAN > 60
[2017-11-05] MEDS: Rosuvastatin Calcium 2.5 mg Tab PO SCH (21:09)
[2017-11-07 07:35] VITALS: RESP 20
--- NOTE | 2017-11-07 09:36 | CP.PCM.PN ---
Subjective - Date & Time of Evaluation Date of Evaluation: 11/07/17 Time of Evaluation: 07:00 - Subjective Subjective: PGY1 Medicine Note for Dr. Donohue Patient seen and examined at bedside this morning. No acute events over night. Patient states he is doing well and has no complaints at this time. He has no fevers, chills, nausea, vomiting, diarrhea, constipation, chest pain, shortness of breath, abdominal pain, dysuria, or headaches Objective - Vital Signs/Intake and Output Vital Signs (last 24 hours): Temp Pulse Resp BP Pulse Ox 97.9 F 75 20 135/83 97 11/07/17 07:33 11/07/17 07:33 11/07/17 07:33 11/07/17 07:33 11/07/17 07:33 Intake and Output: 11/07/17 11/07/17 06:59 18:59 Intake Total 300 Balance 300 - Medications Medications: Current Medications Aspirin (Ecotrin) 81 mg PO DAILY [facility] Last Admin: 11/07/17 09:15 Dose: 81 mg Donepezil HCl (Aricept) 10 mg PO [facility] Last Admin: 11/05/17 21:09 Dose: 10 mg Famotidine (Pepcid) 20 mg PO DAILY [facility] Last Admin: 11/07/17 09:15 Dose: 20 mg Folic Acid (Folic Acid) 1 mg PO DAILY [facility] Last Admin: 11/07/17 09:15 Dose: 1 mg Losartan Potassium (Cozaar) 25 mg PO DAILY [facility] Last Admin: 11/07/17 09:14 Dose: 25 mg Memantine (Namenda) 10 mg PO DAILY [facility] Last Admin: 11/07/17 09:15 Dose: 10 mg Rosuvastatin Calcium (Crestor) 2.5 mg PO HS [facility] Last Admin: 11/05/17 21:09 Dose: 2.5 mg - Labs Labs: 11/05/17 16:34 11/05/17 16:34 PT 11.8 SECONDS (9.7-12.2) 06/21/17 22:04 INR 1.1 06/21/17 22:04 APTT 32 SECONDS (21-34) 06/21/17 22:04 - Additional Findings Additional findings: - Constitutional Appears: Non-toxic, No Acute Distress - Head Exam Head Exam: ATRAUMATIC, NORMOCEPHALIC - Eye Exam Eye Exam: EOMI - ENT Exam ENT Exam: Mucous Membranes Moist - Neurological Exam Neurological Exam: Alert, Awake, Normal Gait, Oriented x3 Neuro motor strength exam: Left Upper Extremity: 5, Right Upper Extremity: 5, Left Lower Extremity: 5, Right Lower Extremity: 5 - Psychiatric Exam Psychiatric exam: Normal Affect, Normal Mood - Skin Skin Exam: Dry, Warm Assessment and Plan - Assessment and Plan (Free Text) Assessment: Dementia Family Hx: patient's family member had Alzheimer's Disease and at age 70 * Patient was told by a neurologist he has early signs of dementia * Psych consult Dr. Valente --> help appreciated * CT scan of the head is negative * X-ray (06/18/17) shows a left apical granuloma * Repeat chest xra y(08/30/17): no active disease * Neurology Dr. Manzanares-->help appreciated * Completed EEG 07/07/17 * Discussed patient may complete further workup as outpatient. * negative heavy metal screen * Repeat MRI 07/09: no acute intracranial abnormality. Mild chronic microangiopathic changes and mild age-related global parenchymal volume loss. Please note workup is in prior admission when patient eloped on discharge. * CT scan of the chest is negative and unremarkable * UDS is negative * UA: urine only + for ketones * Brain MRI: Limited motion degraded study. No evidence of acute hemorrhage or infarct. Minor chronic white matter ischemic changes are felt be present. Moderate generalized volume loss. * RPR: nonreactive * HIV: negative * TSH: within normal and repeat within normal * Folate: normal and repeat within normal * B12: normal and repeat within normal * Recommended to patient to follow-up with neurology outpatient and to establish care in the [facility] upon discharge Medications: * Aricept 10mg PO qHS * Namenda 10mg bid * Folic acid 1mg PO daily * Crestor 2.5mg PO HS * Aspirin 81mg PO daily Leukocytosis - resolved WBC 12.3 on 10/08/17 Afebrile, asymptomatic Continue to monitor AM labs Blood cx: negative Urine cx: negative CXR (10/09/17): no active disease Resolved--> WBC 7.0 on 10/10/17 Hypertension Stable with medications Continue to monitor with vital signs continue home Cozaar 25mg PO daily Glucose intolerance (impaired glucose tolerance) Hgba1c: 5.7 * Will recheck in one year Abnormal chest x-ray CT chest (06/18/17): unremarkable Chest Xray (08/30/17): no active disease CXR (10/09/17): no active disease Prophylactic measure GI: Pepcid 20mg PO Daily DVT: SCDs, Patient is ambulatory; walks Q1-2hrs Disposition: Appointed Vaccinator: Court appointed, Mr. Los Henry, [address] [place] [address] ; Awaiting Office of Public Guardianship [employer] Counter Feeder Lv Hooks [phone] to arrange for permanent placement for patient. Social work has patient approved for a shelter but guardian does not want patient at shelter. They are attempting to come to an agreement of where the patient should go to get the treatment he needs. Patient is able to mask his symptoms very well but he is unable to be care for himself. No updates at this time. Case discussed with Dr. Donohue
[2017-11-07] MEDS: Rosuvastatin Calcium 2.5 mg Tab PO SCH (21:16)
[2017-11-08] MEDS: Rosuvastatin Calcium 2.5 mg Tab PO SCH (21:33)
--- NOTE | 2017-11-09 06:29 | CP.PCM.PN ---
<Greer Kim - Last Filed: 11/09/17 17:35> Subjective - Date & Time of Evaluation Date of Evaluation: 11/09/17 Time of Evaluation: 07:00 - Subjective Subjective: PGY1 Medicine Note for Dr. Damon Patient seen and examined at bedside this morning. No acute events over night. Patient states he is doing well and has no complaints at this time. He has no fevers, chills, nausea, vomiting, diarrhea, constipation, chest pain, shortness of breath, abdominal pain, dysuria, or headaches Objective - Vital Signs/Intake and Output Vital Signs (last 24 hours): Temp Pulse Resp BP Pulse Ox 98.5 F 81 20 129/78 97 11/08/17 23:52 11/08/17 23:52 11/08/17 23:52 11/08/17 23:52 11/08/17 23:52 Intake and Output: 11/08/17 11/09/17 18:59 06:59 Intake Total 900 300 Output Total 500 Balance 900 -200 - Medications Medications: Current Medications Aspirin (Ecotrin) 81 mg PO DAILY [facility] Last Admin: 11/08/17 09:45 Dose: 81 mg Donepezil HCl (Aricept) 10 mg PO HS [facility] Last Admin: 11/08/17 21:33 Dose: 10 mg Famotidine (Pepcid) 20 mg PO DAILY [facility] Last Admin: 11/08/17 09:46 Dose: 20 mg Folic Acid (Folic Acid) 1 mg PO DAILY [facility] Last Admin: 11/08/17 09:46 Dose: 1 mg Losartan Potassium (Cozaar) 25 mg PO DAILY [facility] Last Admin: 11/08/17 09:45 Dose: 25 mg Memantine (Namenda) 10 mg PO DAILY [facility] Last Admin: 11/08/17 09:46 Dose: 10 mg Rosuvastatin Calcium (Crestor) 2.5 mg PO HS [facility] Last Admin: 11/08/17 21:33 Dose: 2.5 mg - Labs Labs: 11/05/17 16:34 11/05/17 16:34 PT 11.8 SECONDS (9.7-12.2) 06/21/17 22:04 INR 1.1 06/21/17 22:04 APTT 32 SECONDS (21-34) 06/21/17 22:04 - Additional Findings Additional findings: - Constitutional Appears: Non-toxic, No Acute Distress - Head Exam Head Exam: ATRAUMATIC, NORMOCEPHALIC - Eye Exam Eye Exam: EOMI - ENT Exam ENT Exam: Mucous Membranes Moist - Neurological Exam Neurological Exam: Alert, Awake, Normal Gait, Oriented x3 Neuro motor strength exam: Left Upper Extremity: 5, Right Upper Extremity: 5, Left Lower Extremity: 5, Right Lower Extremity: 5 - Psychiatric Exam Psychiatric exam: Normal Affect, Normal Mood - Skin Skin Exam: Dry, Warm Assessment and Plan - Assessment and Plan (Free Text) Assessment: Dementia Family Hx: patient's family member had Alzheimer's Disease and at age 70 * Patient was told by a neurologist he has early signs of dementia * Psych consult Dr. Valente --> help appreciated * CT scan of the head is negative * X-ray (06/18/17) shows a left apical granuloma * Repeat chest xra y(08/30/17): no active disease * Neurology Dr. Manzanares-->help appreciated * Completed EEG 07/07/17 * Discussed patient may complete further workup as outpatient. * negative heavy metal screen * Repeat MRI 07/09: no acute intracranial abnormality. Mild chronic microangiopathic changes and mild age-related global parenchymal volume loss. Please note workup is in prior admission when patient eloped on discharge. * CT scan of the chest is negative and unremarkable * UDS is negative * UA: urine only + for ketones * Brain MRI: Limited motion degraded study. No evidence of acute hemorrhage or infarct. Minor chronic white matter ischemic changes are felt be present. Moderate generalized volume loss. * RPR: nonreactive * HIV: negative * TSH: within normal and repeat within normal * Folate: normal and repeat within normal * B12: normal and repeat within normal * Recommended to patient to follow-up with neurology outpatient and to establish care in the [facility] upon discharge Medications: * Aricept 10mg PO qHS * Namenda 10mg bid * Folic acid 1mg PO daily * Crestor 2.5mg PO HS * Aspirin 81mg PO daily Leukocytosis - resolved WBC 12.3 on 10/08/17 Afebrile, asymptomatic Continue to monitor AM labs Blood cx: negative Urine cx: negative CXR (10/09/17): no active disease Resolved--> WBC 7.0 on 10/10/17 Hypertension Stable with medications Continue to monitor with vital signs continue home Cozaar 25mg PO daily Glucose intolerance (impaired glucose tolerance) Hgba1c: 5.7 * Will recheck in one year Abnormal chest x-ray CT chest (06/18/17): unremarkable Chest Xray (08/30/17): no active disease CXR (10/09/17): no active disease Prophylactic measure GI: Pepcid 20mg PO Daily DVT: SCDs, Patient is ambulatory; walks Q1-2hrs Disposition: Appointed Evidence Specialist: Court appointed, Mr. Los Henry, [address] [facility] [address] ; Awaiting Office of Public Guardianship First Calender Worker Lv Hooks [phone] to arrange for permanent placement for patient. waste water worker has found placement for patient at [facility], pending insurance approval. Case discussed with Dr. Damon <Gary Damon - Last Filed: 11/09/17 19:50> Objective - Vital Signs/Intake and Output Vital Signs (last 24 hours): Temp Pulse Resp BP Pulse Ox 97.3 F L 67 20 124/81 97 11/09/17 15:00 11/09/17 15:00 11/09/17 15:00 11/09/17 15:00 11/09/17 15:00 Intake and Output: 11/09/17 11/10/17 18:59 06:59 Intake Total 1660 Output Total 1000 Balance 660 - Medications Medications: Current Medications Aspirin (Ecotrin) 81 mg PO DAILY [facility] Last Admin: 11/09/17 09:49 Dose: 81 mg Donepezil HCl (Aricept) 10 mg PO HS [facility] Last Admin: 11/08/17 21:33 Dose: 10 mg Famotidine (Pepcid) 20 mg PO DAILY [facility] Last Admin: 11/09/17 09:49 Dose: 20 mg Folic Acid (Folic Acid) 1 mg PO DAILY [facility] Last Admin: 11/09/17 09:49 Dose: 1 mg Losartan Potassium (Cozaar) 25 mg PO DAILY [facility] Last Admin: 11/09/17 09:48 Dose: 25 mg Memantine (Namenda) 10 mg PO DAILY [facility] Last Admin: 11/09/17 09:49 Dose: 10 mg Rosuvastatin Calcium (Crestor) 2.5 mg PO HS [facility] Last Admin: 11/08/17 21:33 Dose: 2.5 mg - Labs Labs: 11/05/17 16:34 11/05/17 16:34 PT 11.8 SECONDS (9.7-12.2) 06/21/17 22:04 INR 1.1 06/21/17 22:04 APTT 32 SECONDS (21-34) 06/21/17 22:04 Attending/Attestation - Attestation I have personally seen and examined this patient.: Yes I have fully participated in the care of the patient.: Yes I have reviewed all pertinent clinical information, including history, physical exam and plan: Yes Notes (Text): 11/09/17 19:49 Hospitalist Progress Note Patient was seen and examined at 10:30 AM 11/09/17 358 A Upon FULL ROS NO dysphagia/odynopahgia NO soreness in throat NO cough NO sinus/nasal congestion NO fever/chills NO muscle aches/pains NO joint pain NO chest pain/palpations NO SOB NO abdominal pain NO n/v/d/c NO burning pain with urination NO CHAMPION NO lightheadedness/dizziness NO paresthesias Exam: General: AAOX3, NAD HEENT: NCA, EOMI, PERRLA, NO cervical/supraclavicular/submandibular lymphadenopathy, NO pharyngeal erythema/exudate, Nasal Turbinates are nonerythematous/nonedematous, Oral Mucosa is moist Cardio: NS1 and NS2, NO M/R/G Resp: CTA B/L, NO R/R/W GI: BSx4, Soft, NT, NO HSM, NO guarding/rebound tenderness Ext: Pulses are strong and equal, Capillary Refill is 2 seconds, NO edema Neuro: CN II through XII are grossly intact Assessment and Plan: 1). Hx Dimentia: Aricept, Namenda, Folic Acid, Crestor, ASA 2). Hx Anemia: resolved 3). Hx Hypokalemia: resolved 4). Hx Abnormal Chest X Ray: CT Chest was unremarkable 5). Hx Impaired Fasting Glucose: HgBA1C was 5.7 6). Hx HTN: Cozaar 7). Prophylaxis: Pepcid, SCD, Patient is continuing to walk every 1 to 2 hours on the medical floor Awaiting placement at [facility] once Insurance Authorization is received. Gary Damon D.O.
[2017-11-09] MEDS: Rosuvastatin Calcium 2.5 mg Tab PO SCH (21:51)
[2017-11-10] MEDS: Rosuvastatin Calcium 2.5 mg Tab PO SCH (22:05)
[2017-11-11] MEDS: Rosuvastatin Calcium 2.5 mg Tab PO SCH (21:08)
[2017-11-12 09:34] VITALS: TEMP 98; O2SAT 97
--- NOTE | 2017-11-12 15:40 | CP.PCM.DIS ---
<Greer Kim - Last Filed: 11/12/17 16:37> Provider - Provider Date of Admission: 06/21/17 20:50 Attending physician: Stephen Donohue MD Consults: Dr. Manzanares (neuro) Time Spent in preparation of Discharge (in minutes): 40 Diagnosis - Discharge Diagnosis (1) Alzheimer's dementia Status: Chronic Hospital Course - Lab Results Lab Results: Micro Results 10/09/17 09:15 Blood Blood Culture - Final NO GROWTH AFTER 5 DAYS 10/09/17 09:15 Blood Gram Stain - Final TEST NOT PERFORMED 10/09/17 08:45 Blood Blood Culture - Final NO GROWTH AFTER 5 DAYS 10/09/17 08:45 Blood Gram Stain - Final TEST NOT PERFORMED 10/09/17 Unknown Urine Urine Culture - Final No Growth (<1,000 CFU/ML) Most Recent Lab Values WBC 8.2 K/uL (4.8-10.8) 11/05/17 16:34 RBC 4.53 Mil/uL (4.40-5.90) 11/05/17 16:34 Hgb 14.1 g/dL (12.0-18.0) 11/05/17 16:34 Hct 41.3 % (35.0-51.0) 11/05/17 16:34 MCV 91.1 fL (80.0-94.0) 11/05/17 16:34 MCH 31.0 pg (27.0-31.0) 11/05/17 16:34 MCHC 34.0 g/dL (33.0-37.0) 11/05/17 16:34 RDW 13.2 % (11.5-14.5) 11/05/17 16:34 Plt Count 279 K/uL (130-400) 11/05/17 16:34 MPV 6.7 fL (7.2-11.7) L 11/05/17 16:34 Neut % (Auto) 68.4 % (50.0-75.0) 11/05/17 16:34 Lymph % (Auto) 22.4 % (20.0-40.0) 11/05/17 16:34 [place] % (Auto) 8.3 % (0.0-10.0) 11/05/17 16:34 Eos % (Auto) 0.6 % (0.0-4.0) 11/05/17 16:34 Baso % (Auto) 0.3 % (0.0-2.0) 11/05/17 16:34 Neut # (Auto) 5.6 K/uL (1.8-7.0) 11/05/17 16:34 Lymph # (Auto) 1.8 K/uL (1.0-4.3) 11/05/17 16:34 [place]ay # (Auto) 0.7 K/uL (0.0-0.8) 11/05/17 16:34 Eos # (Auto) 0.0 K/uL (0.0-0.7) 11/05/17 16:34 Baso # (Auto) 0.0 K/uL (0.0-0.2) 11/05/17 16:34 Neutrophils % (Manual) 82 % (50-75) H 06/21/17 20:05 Lymphocytes % (Manual) 10 % (20-40) L 06/21/17 20:05 Monocytes % (Manual) 7 % (0-10) 06/21/17 20:05 Basophils % (Manual) 1 % (0-2) 06/21/17 20:05 Platelet Estimate Normal (NORMAL) 06/21/17 20:05 PT 11.8 SECONDS (9.7-12.2) 06/21/17 22:04 INR 1.1 06/21/17 22:04 APTT 32 SECONDS (21-34) 06/21/17 22:04 Sodium 137 mmol/L (132-148) 11/05/17 16:34 Potassium 4.1 mmol/L (3.6-5.2) 11/05/17 16:34 Chloride 98 mmol/L (98-107) 11/05/17 16:34 Carbon Dioxide 28 mmol/L (22-30) 11/05/17 16:34 Anion Gap 15 (10-20) 11/05/17 16:34 BUN 11 mg/dL (9-20) 11/05/17 16:34 Creatinine 0.9 mg/dL (0.8-1.5) 11/05/17 16:34 Est GFR ( Amer) > 60 11/05/17 16:34 Est GFR (Non-Af Amer) > 60 11/05/17 16:34 Random Glucose 96 mg/dL (75-110) 11/05/17 16:34 Calcium 8.6 mg/dl (8.6-10.4) 11/05/17 16:34 Phosphorus 4.5 mg/dL (2.5-4.5) 11/05/17 16:34 Magnesium 2.0 mg/dL (1.6-2.3) 11/05/17 16:34 Total Bilirubin 0.6 mg/dL (0.2-1.3) 11/05/17 16:34 AST 26 U/L (17-59) 11/05/17 16:34 ALT 46 U/L (21-72) 11/05/17 16:34 Alkaline Phosphatase 88 U/L (38-126) 11/05/17 16:34 Total Protein 6.5 g/dL (6.3-8.3) 11/05/17 16:34 Albumin 3.6 g/dL (3.5-5.0) 11/05/17 16:34 Globulin 2.9 gm/dL (2.2-3.9) 11/05/17 16:34 Albumin/Globulin Ratio 1.3 (1.0-2.1) 11/05/17 16:34 Vitamin B12 361 pg/mL (239-931) 07/06/17 16:56 Folate 14.6 ng/mL 07/06/17 16:56 TSH 3rd Generation 1.42 mIU/L (0.46-4.68) 07/06/17 16:56 Urine Color Yellow (YELLOW) 10/09/17 14:38 Urine Clarity Hazy (Clear) 10/09/17 14:38 Urine pH 6.0 (5.0-8.0) 10/09/17 14:38 Ur Specific [place] 1.009 (1.003-1.030) 10/09/17 14:38 Urine Protein Negative mg/dL (NEGATIVE) 10/09/17 14:38 Urine Glucose (UA) Normal mg/dL (Normal) 10/09/17 14:38 Urine Ketones Negative mg/dL (NEGATIVE) 10/09/17 14:38 Urine Blood Negative (NEGATIVE) 10/09/17 14:38 Urine Nitrate Negative (NEGATIVE) 10/09/17 14:38 Urine Bilirubin Negative (NEGATIVE) 10/09/17 14:38 Urine Urobilinogen Normal mg/dL (0.2-1.0) 10/09/17 14:38 Ur Leukocyte Esterase Neg Essence/uL (Negative) 10/09/17 14:38 Urine WBC (Auto) 1 /hpf (0-5) 10/09/17 14:38 Urine RBC (Auto) 2 /hpf (0-3) 10/09/17 14:38 Whole Blood Arsenic <3 mcg/L (<23) 07/06/17 16:56 Lead Sample Type Venous 07/06/17 16:56 Whole Blood Lead <1 mcg/dL (<5) 07/06/17 16:56 Mercury <4 mcg/L (<=10) 07/06/17 16:56 - Hospital Course Hospital Course: 62 year old man with a past medical history of dementia, HTN, HLD presented to ED after being found on the streets wandering and confused on 06/18/18. Patient underwent a head and chest CT both of which showed no acute findings. Patient had a brain MRI which showed moderate generalized volume loss. Dr. Valente from psych was consulted who diagnosed alzheimer's dementia with behavioral disturbances and cleared him for discharge. Patient needed to obtain state guardianship and while awaiting guardianship patient was found to have anemia with a Hgb of 11.7 and hypokalemia at 3.5. Patient was treated with his home medications of Cozaar 25 mg, Aricept 10mg, and Namenda 10mg BID as well as potassium repletion and prophylactic measures such as pepcid 20mg and heparin 5000 units sc q8h. Two days after admission, patient eloped. He was returned to hospital by ex who had been informed by the hospital that patient left hospital. Upon return he was continued on same regimen. While awaiting guardianship, Dr. Manzanares was consulted from neurology. A brain MRI with and without contrast was reordered which showed moderate volume loss and moderate microangiopathic change. TSH, Vit b12, folate, and heavy metal screens were ordered all of which came back within normal limits. Patient remained at [facility] from 06/21/18- 11/12/17 during which he obtained state guardianship and awaited prison placement. He had RPR, HIV 1&2 antibody screen, TB quantiferon gold screening all of which were negative. Urine and blood cultures were continually negative. In this time patient was treated with medications listed above as well as Crestor 2.5mg HS, Cuaifenesin/Codeine 5ml PRN, Flonase 1 spray BID, ASA 81mg PO daily, Duoneb 3ml Q6PRN. Patient had 2 CXR's ordered on 08/30/17 and 10/09/17 for evaluation of URTI symptoms both of which came back negative. Upon discharge to [facility], patient was awake alert and oriented x3. His blood pressure remained stable averaging 125/85, his anemia resolved with a Hgb of 14.1, and his hypokalemia resolved at 4.1. Patient maintained a positive and healthy countenance throughout stay. This is a summary of the patient's hospital course, please see chart for full details. Discharge Exam - Head Exam Head Exam: ATRAUMATIC, NORMOCEPHALIC - Eye Exam Eye Exam: EOMI, Normal appearance - ENT Exam ENT Exam: Mucous Membranes Moist - Respiratory Exam Respiratory Exam: Clear to PA & Lateral, NORMAL BREATHING PATTERN, UNREMARKABLE. absent: Rales, Rhonchi, Wheezes, Stridor - Cardiovascular Exam Cardiovascular Exam: REGULAR RHYTHM, RRR, +S1, +S2 - GI/Abdominal Exam GI & Abdominal Exam: Normal Bowel Sounds, Soft. absent: Distended, Firm, Tenderness - Extremities Exam Extremities exam: normal inspection - Neurological Exam Neurological exam: Alert, Oriented x3 - Psychiatric Exam Psychiatric exam: Normal Affect, Normal Mood - Skin Skin Exam: Intact, Normal Color, Warm Discharge Plan - Follow Up Plan Condition: STABLE Disposition: NURSING FACILITY MEDICAID CERT Instructions: Dementia (GEN), Altered Mental Status (GEN) Additional Instructions: Patient stable for discharge as per Dr. Damon. Patient to continue taking the following medications: ASA 81mg by mouth daily, Donezepil 10 mg by mouth every night, Pepcid 20mg by mouth daily, Folic Acid 1mg by mouth daily, Losartan 25mg by mouth daily, Memantine 10mg by mouth daily, Crestor 2.5 mg by mouth every night. Patient to follow up with Dr. Manzanares (neurology) as an outpatient. Patient to return to Emergency Room if symptoms worsen. Patient explained instructions who understands and agrees. Referrals: Rodrigo Manzanares MD [Staff Provider] - <Gary Damon - Last Filed: 11/12/17 19:03> Provider - Provider Date of Admission: 06/21/17 20:50 Attending physician: Stephen Donohue MD Hospital Course - Lab Results Lab Results: Micro Results 10/09/17 09:15 Blood Blood Culture - Final NO GROWTH AFTER 5 DAYS 10/09/17 09:15 Blood Gram Stain - Final TEST NOT PERFORMED 10/09/17 08:45 Blood Blood Culture - Final NO GROWTH AFTER 5 DAYS 10/09/17 08:45 Blood Gram Stain - Final TEST NOT PERFORMED 10/09/17 Unknown Urine Urine Culture - Final No Growth (<1,000 CFU/ML) Most Recent Lab Values WBC 8.2 K/uL (4.8-10.8) 11/05/17 16:34 RBC 4.53 Mil/uL (4.40-5.90) 11/05/17 16:34 Hgb 14.1 g/dL (12.0-18.0) 11/05/17 16:34 Hct 41.3 % (35.0-51.0) 11/05/17 16:34 MCV 91.1 fL (80.0-94.0) 11/05/17 16:34 MCH 31.0 pg (27.0-31.0) 11/05/17 16:34 MCHC 34.0 g/dL (33.0-37.0) 11/05/17 16:34 RDW 13.2 % (11.5-14.5) 11/05/17 16:34 Plt Count 279 K/uL (130-400) 11/05/17 16:34 MPV 6.7 fL (7.2-11.7) L 11/05/17 16:34 Neut % (Auto) 68.4 % (50.0-75.0) 11/05/17 16:34 Lymph % (Auto) 22.4 % (20.0-40.0) 11/05/17 16:34 C[place]ay % (Auto) 8.3 % (0.0-10.0) 11/05/17 16:34 Eos % (Auto) 0.6 % (0.0-4.0) 11/05/17 16:34 Baso % (Auto) 0.3 % (0.0-2.0) 11/05/17 16:34 Neut # (Auto) 5.6 K/uL (1.8-7.0) 11/05/17 16:34 Lymph # (Auto) 1.8 K/uL (1.0-4.3) 11/05/17 16:34 [place] # (Auto) 0.7 K/uL (0.0-0.8) 11/05/17 16:34 Eos # (Auto) 0.0 K/uL (0.0-0.7) 11/05/17 16:34 Baso # (Auto) 0.0 K/uL (0.0-0.2) 11/05/17 16:34 Neutrophils % (Manual) 82 % (50-75) H 06/21/17 20:05 Lymphocytes % (Manual) 10 % (20-40) L 06/21/17 20:05 Monocytes % (Manual) 7 % (0-10) 06/21/17 20:05 Basophils % (Manual) 1 % (0-2) 06/21/17 20:05 Platelet Estimate Normal (NORMAL) 06/21/17 20:05 PT 11.8 SECONDS (9.7-12.2) 06/21/17 22:04 INR 1.1 06/21/17 22:04 APTT 32 SECONDS (21-34) 06/21/17 22:04 Sodium 137 mmol/L (132-148) 11/05/17 16:34 Potassium 4.1 mmol/L (3.6-5.2) 11/05/17 16:34 Chloride 98 mmol/L (98-107) 11/05/17 16:34 Carbon Dioxide 28 mmol/L (22-30) 11/05/17 16:34 Anion Gap 15 (10-20) 11/05/17 16:34 BUN 11 mg/dL (9-20) 11/05/17 16:34 Creatinine 0.9 mg/dL (0.8-1.5) 11/05/17 16:34 Est GFR ( Amer) > 60 11/05/17 16:34 Est GFR (Non-Af Amer) > 60 11/05/17 16:34 Random Glucose 96 mg/dL (75-110) 11/05/17 16:34 Calcium 8.6 mg/dl (8.6-10.4) 11/05/17 16:34 Phosphorus 4.5 mg/dL (2.5-4.5) 11/05/17 16:34 Magnesium 2.0 mg/dL (1.6-2.3) 11/05/17 16:34 Total Bilirubin 0.6 mg/dL (0.2-1.3) 11/05/17 16:34 AST 26 U/L (17-59) 11/05/17 16:34 ALT 46 U/L (21-72) 11/05/17 16:34 Alkaline Phosphatase 88 U/L (38-126) 11/05/17 16:34 Total Protein 6.5 g/dL (6.3-8.3) 11/05/17 16:34 Albumin 3.6 g/dL (3.5-5.0) 11/05/17 16:34 Globulin 2.9 gm/dL (2.2-3.9) 11/05/17 16:34 Albumin/Globulin Ratio 1.3 (1.0-2.1) 11/05/17 16:34 Vitamin B12 361 pg/mL (239-931) 07/06/17 16:56 Folate 14.6 ng/mL 07/06/17 16:56 TSH 3rd Generation 1.42 mIU/L (0.46-4.68) 07/06/17 16:56 Urine Color Yellow (YELLOW) 10/09/17 14:38 Urine Clarity Hazy (Clear) 10/09/17 14:38 Urine pH 6.0 (5.0-8.0) 10/09/17 14:38 Ur Specific [place] 1.009 (1.003-1.030) 10/09/17 14:38 Urine Protein Negative mg/dL (NEGATIVE) 10/09/17 14:38 Urine Glucose (UA) Normal mg/dL (Normal) 10/09/17 14:38 Urine Ketones Negative mg/dL (NEGATIVE) 10/09/17 14:38 Urine Blood Negative (NEGATIVE) 10/09/17 14:38 Urine Nitrate Negative (NEGATIVE) 10/09/17 14:38 Urine Bilirubin Negative (NEGATIVE) 10/09/17 14:38 Urine Urobilinogen Normal mg/dL (0.2-1.0) 10/09/17 14:38 Ur Leukocyte Esterase Neg Essence/uL (Negative) 10/09/17 14:38 Urine WBC (Auto) 1 /hpf (0-5) 10/09/17 14:38 Urine RBC (Auto) 2 /hpf (0-3) 10/09/17 14:38 Whole Blood Arsenic <3 mcg/L (<23) 07/06/17 16:56 Lead Sample Type Venous 07/06/17 16:56 Whole Blood Lead <1 mcg/dL (<5) 07/06/17 16:56 Mercury <4 mcg/L (<=10) 07/06/17 16:56 Attending/Attestation - Attestation I have personally seen and examined this patient.: Yes I have fully participated in the care of the patient.: Yes I have reviewed all pertinent clinical information, including history, physical exam and plan: Yes Notes (Text): 11/12/17 19:03 Patient was seen and examined shortly after resident. Exam, assessment and plan and discharge instructions were gone over with the resident. Gary Damon D.O.
[2017-11-12 16:05] VITALS: BP 111/73; PULSE 74
== END 2017-11-12 16:45 | DRG 12 ==
LOC: C.ER 19:18 → C.5S 20:50 → C.9E 20:50 → UNDOADMIN 20:50 → C.9E 22:40 → C.6T 22:40 → C.9E 22:53 → C.5S 06-22 00:53 → C.3T 07-05 20:56
PROVIDERS: ADMIT Internal Medicine; ATTEND Internal Medicine
DX: G30.9 Alzheimer's disease, unspecified (principal); E87.6 Hypokalemia; F02.81 Dementia in other diseases classified elsewhere, unspecified severity, with behavioral disturbance; D64.9 Anemia, unspecified; D72.829 Elevated white blood cell count, unspecified; E78.5 Hyperlipidemia, unspecified; R73.02 Impaired glucose tolerance (oral); R91.8 Other nonspecific abnormal finding of lung field; I10 Essential (primary) hypertension; K04.5 Chronic apical periodontitis; Z59.0 Homelessness; Z82.3 Family history of stroke; Z75.1 Person awaiting admission to adequate facility elsewhere